=== PATIENT | male | born 1985 | race Caucasian/White ===

== ENCOUNTER 2017-05-18 12:17 | Emergency (ER) | payer BC, OTHER ==
[~2017-05-18] VITALS: Ht 182.9 cm; Wt 138.3 kg
[~2017-05-18 12:17] MED LIST: BUPR100T8 PO; LOSA100T65 PO; LSX40 PO; PANT40TA PO; PLV75 PO; POTA-74 PO; PRENTAB26 PO; TPRSR/50 PO; TPRSR50 PO; WARF-246 PO; WLLXL300 PO
[2017-05-18 12:25] VITALS: Ht 182.9 cm; Wt 138.3 kg
[2017-05-18] MEDS ORDERED: ATOR-22 PO (13:10)
[2017-05-18] MEDS ORDERED: DULO-24 PO (13:10)
[2017-05-18] MEDS ORDERED: AMLO-110 PO (13:10)
[2017-05-18] MEDS ORDERED: OPTIRAY 320 IV PRN (13:15)
[2017-05-18 13:20] LABS: ISTAT CREATININE 0.8 mg/dl (0.6-1.3); ISTAT IONIZED CALCIUM 1.13 mmol/l (1.12-1.32)
[2017-05-18 13:23] LABS: HEMATOCRIT 41.3 % (42-52); MEAN CELL VOLUME 87.9 fL (80-100); MEAN CORPUSCULAR HEMOGLOBIN 30.9 pg (25-34); MEAN CORPUSCULAR HGB CONC 35.1 g/dl (32-36); MEAN PLATELET VOLUME 10.8 fL (7.4-10.4); PLATELET COUNT 196 K/uL (130-400); WHITE BLOOD COUNT 4.66 K/uL (4.8-10.8)
[2017-05-18 13:31] LABS: INR 2.4 (0.9-1.1); PARTIAL THROMBOPLASTIN RATIO 1.4
[2017-05-18 13:41] LABS: BUN/CREATININE RATIO 14.1 (10-20); CALCIUM 9.1 mg/dl (8.5-10.1); CREATININE 0.94 mg/dl (0.60-1.40); POTASSIUM 4.2 mmol/L (3.5-5.1)
[2017-05-18 13:44] LABS: ALB/GLOB RATIO 1.2 (0.9-2)
--- NOTE | 2017-05-18 14:20 | DIAGNOSTIC IMAGING REPORT ---
Study: CT angiography of the chest HISTORY: Dissection COMPARISON: 08/10/2016 FINDINGS: Unchanged appearance compared to the prior study. 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 All vessels appear to be patent. Postoperative changes of a graft repair of the a sending thoracic aorta are unchanged. There is no pericardial effusion. Lungs are considered clear. Pulmonary vasculature enhances appropriately. IMPRESSION: 1. Unchanged dissection of the thoracic aorta compared to the prior study.. 2. Stable postoperative changes consistent with aortic valve replacement and patchy graft repair of the a sending thoracic aorta. 3. The lungs are considered clear. Electronically signed by: Clarence Hernandez M.D. 05/18/2017 2:19 PM Dictated Date/Time: 05/18/2017 2:12 PM
--- NOTE | 2017-05-18 14:26 | DIAGNOSTIC IMAGING REPORT ---
ANGIO ABD/PELVIS WITH CONTRAST CLINICAL HISTORY: Pain dissection TECHNIQUE: Transaxial acquisition with multi axial reformatted images COMPARISON STUDY: 08/10/2016 FINDINGS: Unchanged dissection of the abdominal aorta extending to the aortic bifurcation with short segment extension to the right iliac artery. There is been no change as compared to the prior study. . All branch vessels appear to opacify appropriately. Bowel pattern is nonobstructive. Liver spleen and pancreas appear unremarkable. There is been a prior prior cholecystectomy. The appendix is normal. Bladder is midline. Inguinal regions are unremarkable. IMPRESSION: 1. 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 No evidence for dissection progression. 3. Prior cholecystectomy. 4. Nonobstructive bowel pattern. The above report was generated using voice recognition software. It may contain grammatical, syntax or spelling errors. Electronically signed by: Clarence Hernandez M.D. 05/18/2017 2:24 PM Dictated Date/Time: 05/18/2017 2:20 PM
[2017-05-18 14:36] LABS: URINE APPEARANCE CLOUDY (CLEAR); URINE BILIRUBIN NEG (NEG); URINE COLOR YELLOW; URINE NITRITE POS (NEG); URINE PH 5.5 (4.5-7.5); URINE SPECIFIC GRAVITY 1.038 (1.000-1.030); UROBILINOGEN NEG (NEG)
[2017-05-18 14:41] LABS: MANUAL MICROSCOPIC REQUIRED? NO; REVIEW REQ? NO
[2017-05-18] MEDS: SULFAMETHOXAZOLE/TRIMETHOPRIM DS 800/160MG TAB PO STA (15:01)
[2017-05-18] MEDS ORDERED: SULF800T23 PO (15:03)
[2017-05-18 15:26] VITALS: BP 144/78; PULSE 67; TEMP 36.8; O2SAT 99
--- NOTE | 2017-05-18 17:03 | EMERGENCY ROOM VISIT NOTE ---
History Report prepared by Laure: Misa Langston Under the Supervision of: Dr. Lloyd Meraz M.D. First contact with patient: 12:57 Chief Complaint: OTHER COMPLAINT Stated Complaint: PAIN MID BACK,BLEEDING DURING URINATION AN INSTOOL Nursing Triage Summary: patient to ed via triage, c/o blood in stool, hematuria, back pain. Patient states "I noticed blood in my stool some weeks ago, had blood in my urine today , pain across my back. I'm on coumadin" History of Present Illness The patient is a 31 year old male who presents to the Emergency Room with complaints of rectal bleeding that began three days ago. He currently rates his discomfort as a 7/10 in severity. The patient reports a history of an aortic dissection in July 2014. He states that his pain he developed today in his mid back feels similar to when he had the aortic dissection. The patient states that he first noticed hematochezia three days ago, but denies any melena. The patient states that he saw what he thought were blood clots, but was unsure. He states that he has not had a bowel movement yet today. He states that today he noticed hematuria. The patient states that he is on Coumadin and Plavix for his mechanical valve. He states that he still has dissected areas that are stable. The patient states that he has had chest pain within the past week, describing it as a central stabbing pain, but denies any today. He notes that he is bruising easily. The patient states that he last had his INR checked Friday, stating that it was 3.4. He states that he was instructed to take reduce his intake by two pills on Friday. Source of History: patient Onset: three days ago Position: other (rectal) Symptom Intensity: 7/10 Quality: other (bleeding) Timing: other (persistent) Associated Symptoms: + chest pain, + back pain (mid back), + hematochezia, + urinary symptoms (hematuria), No melena Review of Systems See HPI for pertinent positives & negatives. A total of 10 systems reviewed and were otherwise negative. Past Medical & Surgical Medical Problems: (1) Amaurosis fugax of right eye (2) Asthma (3) DVT (deep venous thrombosis) (4) Heart failure (5) History of aortic dissection (6) HLD (hyperlipidemia) (7) hypospadias surgery Surgical Problems: (1) H/O exploratory laparotomy (2) H/O mechanical aortic valve replacement (3) History of ERCP (4) Pericardial Window (5) S/P AAA repair (6) S/P cholecystectomy (7) S/P ERCP Family History Diabetes mellitus FHx: heart disease Hypertension Social History Smoking Status: Former Smoker Alcohol Use: occasionally Marital Status: single Housing Status: lives with family Occupation Status: employed Current/Historical Medications Scheduled Amlodipine (Norvasc), 5 MG PO DAILY Atorvastatin (Lipitor), 20 MG PO DAILY Bupropion HCl (Bupropion HCl Xl), 300 MG PO QAM Clopidogrel Bisulfate (Clopidogrel), 75 MG PO DAILY Duloxetine HCl (Cymbalta), 20 MG PO DAILY Furosemide (Furosemide), 40 MG PO 2-3 X WEEK Losartan Potassium (Cozaar), 100 MG PO DAILY Metoprolol Succinate (Metoprolol Succinate ER), 50 MG PO HS Metoprolol Succinate (Metoprolol Succinate ER), 75 MG PO QAM Pantoprazole (Protonix), 40 MG PO DAILY Potassium Chloride (Potassium Chloride Er), 10 MEQ PO 2-3 X WEEK Sulfa/Trimethoprim (Bactrim Ds 800MG/160MG), 1 TAB PO BID Warfarin Sodium (Warfarin Sodium), 15 MG PO DAILY Allergies Coded Allergies: No Known Allergies (Unverified , 08/10/16) Physical Exam Vital Signs Date Time Temp Pulse Resp B/P (MAP) Pulse Ox O2 Delivery O2 Flow Rate FiO2 05/18/17 15:26 36.8 67 24 144/78 99 05/18/17 14:10 97 Room Air 05/18/17 14:00 143/62 05/18/17 13:56 99 05/18/17 13:19 63 05/18/17 13:17 65 25 99 05/18/17 13:02 146/86 05/18/17 12:25 36.8 79 20 155/76 96 Room Air Physical Exam Constitutional: Vital signs reviewed. Eyes: Pupils are equal round reactive to light. Conjunctiva are noninjected. ENT: Pharynx is clear without erythema or exudate. Mucous membranes are moist. Neck supple without meningeal signs. Respiratory: Clear to auscultation bilaterally. Breath sounds are equal bilaterally. Cardiovascular: Audible mechanical valve. Regular rate and rhythm. No rubs or gallops. GI: Soft, nondistended and nontender. Bowel sounds are present. Rectal: Guaiac negative brown stool. Musculoskeletal: Scattered bruising over lower extremities. No peripheral edema. No midline tenderness to the thoracic or lumbosacral spine. Integumentary: No cyanosis. Neurological: The patient is awake and alert. No focal deficits. Psychiatric: Normal affect. Medical Decision & Procedures ER Provider Diagnostic Interpretation: Radiology results as stated below per my review and the radiologist's interpretation: Study: CT angiography of the chest HISTORY: Dissection COMPARISON: 08/10/2016 FINDINGS: Unchanged appearance compared to the prior study. 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 All vessels appear to be patent. Postoperative changes of a graft repair of the a sending thoracic aorta are unchanged. There is no pericardial effusion. Lungs are considered clear. Pulmonary vasculature enhances appropriately. IMPRESSION: 1. Unchanged dissection of the thoracic aorta compared to the prior study.. 2. Stable postoperative changes consistent with aortic valve replacement and patchy graft repair of the a sending thoracic aorta. 3. The lungs are considered clear. Electronically signed by: Clarence Hernandez M.D. 05/18/2017 2:19 PM Dictated Date/Time: 05/18/2017 2:12 PM ANGIO ABD/PELVIS WITH CONTRAST CLINICAL HISTORY: Pain dissection TECHNIQUE: Transaxial acquisition with multi axial reformatted images COMPARISON STUDY: 08/10/2016 FINDINGS: Unchanged dissection of the abdominal aorta extending to the aortic bifurcation with short segment extension to the right iliac artery. There is been no change as compared to the prior study. . All branch vessels appear to opacify appropriately. Bowel pattern is nonobstructive. Liver spleen and pancreas appear unremarkable. There is been a prior prior cholecystectomy. The appendix is normal. Bladder is midline. Inguinal regions are unremarkable. IMPRESSION: 1. 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 No evidence for dissection progression. 3. Prior cholecystectomy. 4. Nonobstructive bowel pattern. The above report was generated using voice recognition software. It may contain grammatical, syntax or spelling errors. Electronically signed by: Clarence Hernandez M.D. 05/18/2017 2:24 PM Dictated Date/Time: 05/18/2017 2:20 PM Laboratory Results 05/18/17 12:55 05/18/17 12:55 Test 05/18/17 12:55 05/18/17 13:09 05/18/17 14:05 Red Blood Count 4.70 M/uL (4.7-6.1) Mean Corpuscular Volume 87.9 fL (80-100) Mean Corpuscular Hemoglobin 30.9 pg (25-34) Mean Corpuscular Hemoglobin Concent 35.1 g/dl (32-36) RDW Standard Deviation 40.8 fL (36.4-46.3) RDW Coefficient of Variation 12.7 % (11.5-14.5) Mean Platelet Volume 10.8 fL (7.4-10.4) Prothrombin Time 27.0 SECONDS (9.0-12.0) Prothromb Time International Ratio 2.4 (0.9-1.1) Activated Partial Thromboplast Time 36.6 SECONDS (21.0-31.0) Partial Thromboplastin Ratio 1.4 Est Creatinine Clear Calc Drug Dose 165.6 ml/min Estimated GFR () 125.6 Estimated GFR (Non- 108.4 BUN/Creatinine Ratio 14.1 (10-20) Calcium Level 9.1 mg/dl (8.5-10.1) Total Bilirubin 1.4 mg/dl (0.2-1) Aspartate Amino Transf (AST/SGOT) 50 U/L (15-37) Alanine Aminotransferase (ALT/SGPT) 68 U/L (12-78) Alkaline Phosphatase 101 U/L (45-117) Total Protein 8.4 gm/dl (6.4-8.2) Albumin 4.5 gm/dl (3.4-5.0) Globulin 3.9 gm/dl (2.5-4.0) Albumin/Globulin Ratio 1.2 (0.9-2) Bedside Hemoglobin 15.0 g/dl (14.0-18.0) Bedside Hematocrit 44 % (42-52) Bedside Sodium 140 mEq/L (135-144) Bedside Potassium 4.9 mEq/L (3.3-5.0) Bedside Chloride 104 mEq/L (101-112) Bedside Total CO2 29 mEq/l (24-31) Anion Gap 14.0 mmol/L (16-25) Bedside Blood Urea Nitrogen 16 mg/dl (7-18) Bedside Creatinine 0.8 mg/dl (0.6-1.3) Bedside Glucose (other) 86 mg/dl (70-99) Bedside Ionized Calcium (Jose) 1.13 mmol/l (1.12-1.32) Urine Color YELLOW Urine Appearance CLOUDY (CLEAR) Urine pH 5.5 (4.5-7.5) Urine Specific [place] 1.038 (1.000-1.030) Urine Protein NEG (NEG) Urine Glucose (UA) NEG (NEG) Urine Ketones NEG (NEG) Urine Occult Blood TRACE (NEG) Urine Nitrite POS (NEG) Urine Bilirubin NEG (NEG) Urine Urobilinogen NEG (NEG) Urine Leukocyte Esterase SMALL (NEG) Urine WBC (Auto) >30 /hpf (0-5) Urine RBC (Auto) 0-4 /hpf (0-4) Urine Hyaline Casts (Auto) 10-30 /lpf (0-5) Urine Epithelial Cells (Auto) 5-10 /lpf (0-5) Urine Bacteria (Auto) 4+ (NEG) Laboratory results as reviewed by me. Medications Administered Medications (Trade) Dose Ordered Sig/Kathy Route Start Time Stop Time Status Last Admin Dose Admin Trimethoprim/ Sulfamethoxazole (Septra Ds 800/ 160MG Tab) 1 tab NOW STAT PO 05/18/17 15:01 05/18/17 15:03 DC 05/18/17 15:01 1 TAB ECG Indication: chest pain Rate (beats per minute): 62 Rhythm: normal sinus Findings: LBBB, T-wave inversion (Lateral) Comparison ECG Date: 08/10/16 Change: no significant change ED Course 1259: The patient was evaluated in room C8. A complete history and physical exam was performed. 1500: I reevaluated the patient and he is resting comfortably. I discussed the test results with him and I discussed the treatment plan. He verbalized complete understanding and agreement. He is ready to go home. Ordered Trimethoprim/Sulfamethoxazole 1 tab PO. Medical Decision This is a 31-year-old male who presents with back pain, hematuria and blood in his stool. Differential diagnosis includes aortic dissection, strain, kidney stone, GI bleed, anemia. I did perform a limited focused review of portions of the patient's old chart on the electronic medical record. The patient had an angiography in August which showed a Type A aortic dissection. Medication Reconciliation: I attest that I have personally reviewed the patient' s current medication list. Blood Pressure Screening: Patient was found to have an elevated blood pressure and was referred to their primary doctor for recheck and further treatment. I did evaluate the patient as noted above. IV access was established. The patient was placed on a continuous phototypesetting equipment monitor. I did order and review the patient's blood work, including an i-STAT, as noted in the electronic medical record. His INR is therapeutic. He is not anemic. I did order a stat angiography CT of the chest, abdomen and pelvis. I did review the images myself as well as the radiology report as described above. There is no evidence of acute aortic dissection. He does have stable areas of dissection and a graft repair. I did order and personally review the patient's 12-lead EKG as described above. I did order urinalysis which does show hematuria and signs of infection. I did reassess the patient. Rectal examination shows guaiac-negative brown stool. He states that he wasn't sure if he actually had blood in the stool but he was sure he had blood in his urine. He has not had a bowel movement today. I did discuss the test results with the patient. I did recommend close follow up with his doctor. He was discharged with a prescription for Bactrim. Impression Primary Impression: Urinary tract infection with hematuria Additional Impressions: Anticoagulated on Coumadin Mid back pain Aortic dissection Scribe Attestation The scribe's documentation has been prepared under my direct and personally reviewed by me in its entirety. I confirm that the note above accurately reflects all work, treatment, procedures, and medical decision making performed by me. Departure Information Dispostion Home / Self-Care Prescriptions Sulfa/Trimethoprim (Bactrim Ds 800MG/160MG) Tab 1 TAB PO BID for 10 Days, #19 TAB Prov: Lloyd Meraz M.D. 05/18/17 Referrals Brian Guido M.D. (PCP) Forms HOME CARE DOCUMENTATION FORM, IMPORTANT VISIT INFORMATION, WORK / SCHOOL INSTRUCTIONS Patient Instructions ED UTI Cystitis Male, [facility] Additional Instructions You have been examined and treated today on an emergency basis only. This is not a substitute for, or an effort to provide, complete comprehensive medical care. It is impossible to recognize and treat all injuries or illnesses in a single emergency department visit. It is therefore important that you follow up closely with your physician. Call as soon as possible for an appointment. Return for worsening symptoms or if you develop fever, vomiting, chest pain, shortness breath, lightheadedness or any other concerning symptoms. Problem Qualifiers Primary Impression: Urinary tract infection with hematuria Urinary tract infection type: site unspecified Qualified Codes: N39.0 - Urinary tract infection, site not specified; R31.9 - Hematuria, unspecified Additional Impressions: Aortic dissection Aortic location: thoracoabdominal aorta Qualified Codes: I71.03 - Dissection of thoracoabdominal aorta
== END 2017-05-18 15:27 | disposition home or self-care (01) ==
LOC: C.EDB 12:19 → C.EDC 15:27
DX: N39.0 Urinary tract infection, site not specified (principal); R31.9 Hematuria, unspecified; I71.03 Dissection of thoracoabdominal aorta; M54.9 Dorsalgia, unspecified; Z79.01 Long term (current) use of anticoagulants; J45.909 Unspecified asthma, uncomplicated; I50.9 Heart failure, unspecified; E78.5 Hyperlipidemia, unspecified; Z83.3 Family history of diabetes mellitus; Z82.49 Family history of ischemic heart disease and other diseases of the circulatory system; Z87.891 Personal history of nicotine dependence; Z79.899 Other long term (current) drug therapy

== ENCOUNTER 2017-08-06 18:59 | Observation (INO) | payer OTHER ==
[~2017-08-06] VITALS: Ht 182.9 cm; Wt 135.2 kg
[~2017-08-06 18:59] MED LIST changes: +AMLO-110 PO; +ATOR-22 PO; -BUPR100T8 PO; +DULO-24 PO; -PRENTAB26 PO
[2017-08-06] MEDS ORDERED: OPTIRAY 320 IV PRN (19:45)
[2017-08-06 19:46] LABS: BASO % 0.4 %; BASO ABS # 0.02 K/uL (0-0.2); COMPLETE YES; EOS % 2.2 %; HEMATOCRIT 40.5 % (42-52); IG% 0.2 %; LYMPH % 35.7 %; LYMPH ABS # 1.95 K/uL (1.2-3.4); MEAN CELL VOLUME 89.2 fL (80-100); MEAN CORPUSCULAR HEMOGLOBIN 29.7 pg (25-34); MEAN CORPUSCULAR HGB CONC 33.3 g/dl (32-36); MEAN PLATELET VOLUME 10.8 fL (7.4-10.4); MONO % 11.5 %; PLATELET COUNT 212 K/uL (130-400); RED BLOOD COUNT 4.54 M/uL (4.7-6.1); WHITE BLOOD COUNT 5.46 K/uL (4.8-10.8)
[2017-08-06] MEDS ORDERED: METOPROLOL TARTRATE 1 MG/ML VIAL IV STA (19:54)
[2017-08-06] MEDS ORDERED: MoRPHine SULFATE 4 MG/ML 1 ML CARP\\VIAL IV STA (19:58)
[2017-08-06 19:59] LABS: INR 3.2 (0.9-1.1); PROTHROMBIN TIME (PATIENT) 36.5 SECONDS (9.0-12.0)
[2017-08-06 20:21] LABS: ALKALINE PHOSPHATASE 86 U/L (45-117); ALT/SGPT 62 U/L (12-78); AST/SGOT 43 U/L (15-37); BLOOD UREA NITROGEN 24 mg/dl (7-18); BUN/CREATININE RATIO 21.7 (10-20); CALCIUM 8.6 mg/dl (8.5-10.1); CARBON DIOXIDE 24 mmol/L (21-32); CHLORIDE 109 mmol/L (98-107); GLUCOSE 86 mg/dl (70-99); POTASSIUM 3.8 mmol/L (3.5-5.1); SODIUM 141 mmol/L (136-145)
--- NOTE | 2017-08-06 20:32 | DIAGNOSTIC IMAGING REPORT ---
CHEST ONE VIEW PORTABLE HISTORY: 31 years-old Male hx aortic dissection cp acute atypical chest pain. History of aortic dissection. COMPARISON: CTA 05/18/2017, chest radiograph 08/10/2016 TECHNIQUE: Portable upright AP view of the chest FINDINGS: Cardiac silhouette is mildly enlarged. Prior median sternotomy and aortic valve prosthesis. Surgical coils at the aortic arch are again seen. There is no pneumothorax, pleural effusion, focal airspace consolidation or overt pulmonary edema. No mediastinal widening identified. The bones are grossly intact. Surgical clips project over the right lung apex. IMPRESSION: No acute cardiopulmonary process. The above report was generated using voice recognition software. It may contain grammatical, syntax or spelling errors. Electronically signed by: Rashad Delgado M.D. 08/06/2017 8:31 PM Dictated Date/Time: 08/06/2017 8:29 PM
[2017-08-06] MEDS ORDERED: LABETALOL HCL IV 5 MG/ML 20ML IV STA ×2 (20:51→21:48)
--- NOTE | 2017-08-06 21:03 | DIAGNOSTIC IMAGING REPORT ---
CHEST COMBO ANGIO DISSECTION HISTORY: 31 years-old male presents with acute back pain with history of thoracic aortic dissection. COMPARISON: CTA of the chest 05/18/2017 TECHNIQUE: CT angiography of the chest was obtained both with and without the use of 116 mL Optiray 320. 3-D coronal and sagittal MIPS were obtained from the axial data set and cemented for review. All measurements were obtained according to NASCET criteria. A dose lowering technique was used consistent with the principals of MANDIE. FINDINGS: CTA: Noncontrast scan demonstrates no evidence of intramural hematoma. Heart is mildly enlarged. Prosthetic aortic valve is seen with evidence of prior median sternotomy. Postsurgical changes of the descending thoracic aorta are redemonstrated. 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 Dissection flap is again seen extending into the left subclavian artery and also near the origin of the left vertebral artery as seen on image 30 of series 7. This appears unchanged. Imaged great vessels are patent. The coronary arterial arteries also appear patent. The opacified pulmonary arterial tree is unremarkable. No focal filling defects are identified. CT CHEST: No dominant thyroid nodule. No pathologic adenopathy. No pneumothorax, pleural effusion or focal airspace consolidation. Subcentimeter calcified granuloma involve the lateral basal segment left lower lobe. Central airways are patent. Prior cholecystectomy. No acute upper male the imaged upper abdomen. Bones appear intact. IMPRESSION: 1. 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 2. Cardiomegaly with prior median sternotomy, prosthetic aortic valve and postsurgical changes of the ascending thoracic aorta. 3. No acute intrathoracic abnormality identified. The above report was generated using voice recognition software. It may contain grammatical, syntax or spelling errors. Electronically signed by: Rashad Delgado M.D. 08/06/2017 9:02 PM Dictated Date/Time: 08/06/2017 8:51 PM
--- NOTE | 2017-08-06 21:03 | EMERGENCY ROOM VISIT NOTE ---
History First contact with patient: 19:11 Chief Complaint: CHEST PAIN Stated Complaint: CHEST PAIN,FLANK PAIN,DIZZY,FAINT,TEETH TONGUE NUM Nursing Triage Summary: feeling faint since friday. teeth and tongue go numb. pain in L chest that radiates to back. called PCP and sent to ED. hx aortic disection and anuresym. History of Present Illness The patient is a 31 year old male who presents to the Emergency Room with complaints of chest pain, dizziness and sweating that has been intermittent over the last week. The patient describes the chest pain as a very sharp, stabbing sensation from his sternum to his back. He has also had some episodes of shortness of breath. The patient has a significant cardiac history. He had an aortic dissection that required multiple surgeries including repair of the aortic root and subclavian arteries. He also had a mechanical AVR done. The patient is on chronic anticoagulation. The patient does say that the pain feels different than his dissection. He has had no changes in his cardiac medications. The patient called his cardiothoracic surgeon at [facility]. They told him to come directly to the emergency department. Review of Systems 10 system review performed and negative unless noted in HPI or below Past Medical/Surgical History Medical Problems: (1) Amaurosis fugax of right eye (2) Asthma (3) DVT (deep venous thrombosis) (4) Heart failure (5) History of aortic dissection (6) HLD (hyperlipidemia) (7) hypospadias surgery Surgical Problems: (1) H/O exploratory laparotomy (2) H/O mechanical aortic valve replacement (3) History of ERCP (4) Pericardial Window (5) S/P AAA repair (6) S/P cholecystectomy (7) S/P ERCP Family History Diabetes mellitus FHx: heart disease Hypertension Social History Smoking Status: Never Smoker Alcohol Use: occasionally Marital Status: single Housing Status: lives with family Occupation Status: employed Current/Historical Medications Scheduled Amlodipine (Norvasc), 5 MG PO DAILY Atorvastatin (Lipitor), 20 MG PO DAILY Bupropion (Wellbutrin Sr), 1 TAB PO DAILY Bupropion HCl (Bupropion HCl Xl), 300 MG PO QAM Clopidogrel Bisulfate (Clopidogrel), 75 MG PO DAILY Furosemide (Furosemide), 40 MG PO PRN Losartan Potassium (Cozaar), 100 MG PO DAILY Metoprolol Succinate (Metoprolol Succinate ER), 50 MG PO HS Metoprolol Succinate (Metoprolol Succinate ER), 75 MG PO QAM Pantoprazole (Protonix), 40 MG PO DAILY Potassium Chloride (Potassium Chloride Er), 10 MEQ PO PRN Topiramate (Topiramate), 1 TAB PO BID Warfarin Sodium (Warfarin Sodium), 15 MG PO DAILY Physical Exam Vital Signs Date Time Temp Pulse Resp B/P (MAP) Pulse Ox O2 Delivery O2 Flow Rate FiO2 08/06/17 23:31 76 14 116/58 98 Room Air 08/06/17 23:25 71 08/06/17 23:01 76 19 137/74 98 Room Air 08/06/17 22:38 78 18 134/82 98 Room Air 08/06/17 22:11 75 22 138/67 97 08/06/17 22:06 78 15 96 08/06/17 22:01 75 17 130/59 96 08/06/17 21:56 75 18 96 08/06/17 21:51 75 20 129/62 96 08/06/17 21:46 76 20 97 08/06/17 21:41 76 16 169/80 98 08/06/17 21:36 79 19 97 08/06/17 21:31 78 13 142/90 96 08/06/17 21:26 72 13 99 08/06/17 21:21 74 23 155/72 98 08/06/17 21:16 74 19 100 08/06/17 21:11 148/72 08/06/17 21:09 68 13 98 08/06/17 21:04 70 17 99 08/06/17 21:01 136/82 08/06/17 20:59 70 26 98 08/06/17 20:54 68 14 99 08/06/17 20:51 140/63 08/06/17 20:49 71 14 98 08/06/17 20:46 163/71 08/06/17 20:31 157/86 08/06/17 20:29 71 22 98 08/06/17 20:26 154/74 08/06/17 20:24 69 16 97 08/06/17 20:21 125/61 08/06/17 20:19 161/66 08/06/17 20:19 71 15 98 08/06/17 20:16 161/66 08/06/17 20:14 70 16 97 08/06/17 20:12 98 Room Air 08/06/17 20:09 65 12 182/79 98 08/06/17 20:08 176/71 08/06/17 20:04 70 166/86 08/06/17 20:04 70 17 98 08/06/17 20:01 166/86 08/06/17 19:59 70 16 99 08/06/17 19:54 74 18 99 08/06/17 19:49 70 20 98 08/06/17 19:44 72 16 99 08/06/17 19:44 81 08/06/17 19:43 157/77 08/06/17 19:39 73 20 98 08/06/17 19:37 129/88 08/06/17 19:08 37.2 76 18 188/82 99 Room Air Physical Exam GENERAL: 31-year-old male, anxious in appearance, nondiaphoretic SKIN: Mild ecchymosis to the left ankle HEAD: Normocephalic atraumatic. EYES: Pupils equal round and reactive to light and accommodation. Conjunctivae without injection, sclerae without icterus. Extraocular movements intact. MOUTH: Mucous membranes slightly dry NECK: Left carotid bruit. No JVD. HEART: Regular rate and rhythm systolic murmur noted. LUNGS: Clear to auscultation bilaterally without wheezes, rales or rhonchi. No accessory muscle use. ABDOMEN: Positive bowel sounds x 4.Soft, nontender, without organomegaly. MUSCULOSKELETAL: No muscle atrophy, erythema, or edema noted. DP pulses are equal bilaterally. Radial pulses are equal bilaterally. Strength 5/5 throughout. NEURO: Patient was alert and oriented to person place and time. Normal sensation to touch. No focal neurological deficits. Medical Decision & Procedures ER Provider Diagnostic Interpretation: CXR: IMPRESSION: No acute cardiopulmonary process. CT for dissection IMPRESSION: 1. Stable exam with unchanged appearance of the [place] type A dissection involving the ascending and descending thoracic aorta and imaged upper abdominal aorta extending into the origin of the left subclavian artery. 2. Cardiomegaly with prior median sternotomy, prosthetic aortic valve and postsurgical changes of the ascending thoracic aorta. 3. No acute intrathoracic abnormality identified. CT chest, abdomen and pelvis IMPRESSION: 1. Stable exam with unchanged appearance of the [place] type A dissection involving the ascending and descending thoracic aorta and imaged upper abdominal aorta extending into the origin of the left subclavian artery. 2. Cardiomegaly with prior median sternotomy, prosthetic aortic valve and postsurgical changes of the ascending thoracic aorta. 3. No acute intrathoracic abnormality identified. IMPRESSION: 1. 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 2. 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 3. No bowel obstruction or pneumoperitoneum. 4. Prior cholecystectomy with unchanged mild intrahepatic biliary duct dilation of the right hepatic lobe. Laboratory Results 08/06/17 18:25 Red Blood Count 4.54, Mean Corpuscular Volume 89.2, Mean Corpuscular Hemoglobin 29.7, Mean Corpuscular Hemoglobin Concent 33.3, Mean Platelet Volume 10.8, Neutrophils (%) (Auto) 50.0, Lymphocytes (%) (Auto) 35.7, Monocytes (%) (Auto) 11.5, Eosinophils (%) (Auto) 2.2, Basophils (%) (Auto) 0.4, Neutrophils # (Auto ) 2.73, Lymphocytes # (Auto) 1.95, Monocytes # (Auto) 0.63, Eosinophils # (Auto ) 0.12, Basophils # (Auto) 0.02 08/06/17 18:25 Test 08/06/17 18:25 08/06/17 19:36 08/06/17 22:23 White Blood Count 5.46 K/uL (4.8-10.8) Red Blood Count 4.54 M/uL (4.7-6.1) Hemoglobin 13.5 g/dL (14.0-18.0) Hematocrit 40.5 % (42-52) Mean Corpuscular Volume 89.2 fL (80-100) Mean Corpuscular Hemoglobin 29.7 pg (25-34) Mean Corpuscular Hemoglobin Concent 33.3 g/dl (32-36) Platelet Count 212 K/uL (130-400) Mean Platelet Volume 10.8 fL (7.4-10.4) Neutrophils (%) (Auto) 50.0 % Lymphocytes (%) (Auto) 35.7 % Monocytes (%) (Auto) 11.5 % Eosinophils (%) (Auto) 2.2 % Basophils (%) (Auto) 0.4 % Neutrophils # (Auto) 2.73 K/uL (1.4-6.5) Lymphocytes # (Auto) 1.95 K/uL (1.2-3.4) Monocytes # (Auto) 0.63 K/uL (0.11-0.59) Eosinophils # (Auto) 0.12 K/uL (0-0.5) Basophils # (Auto) 0.02 K/uL (0-0.2) RDW Standard Deviation 44.2 fL (36.4-46.3) RDW Coefficient of Variation 13.7 % (11.5-14.5) Immature Granulocyte % (Auto) 0.2 % Immature Granulocyte # (Auto) 0.01 K/uL (0.00-0.02) Prothrombin Time 36.5 SECONDS (9.0-12.0) Prothromb Time International Ratio 3.2 (0.9-1.1) Anion Gap 10.0 mmol/L (3-11) Est Creatinine Clear Calc Drug Dose 141.8 ml/min Estimated GFR () 103.9 Estimated GFR (Non- 89.6 BUN/Creatinine Ratio 21.7 (10-20) Calcium Level 8.6 mg/dl (8.5-10.1) Total Bilirubin 1.3 mg/dl (0.2-1) Aspartate Amino Transf (AST/SGOT) 43 U/L (15-37) Alanine Aminotransferase (ALT/SGPT) 62 U/L (12-78) Alkaline Phosphatase 86 U/L (45-117) Total Creatine Kinase 239 U/L (39-308) Creatine Kinase MB < 0.5 ng/ml (0.5-3.6) Total Protein 7.8 gm/dl (6.4-8.2) Albumin 4.1 gm/dl (3.4-5.0) Globulin 3.7 gm/dl (2.5-4.0) Albumin/Globulin Ratio 1.0 (0.9-2) Lipase 115 U/L (73-393) Creatine Kinase MB Ratio (0-3.0) Bedside Troponin I < 0.030 ng/ml (0-0.045) Medications Administered Medications (Trade) Dose Ordered Sig/Kathy Route Start Time Stop Time Status Last Admin Dose Admin Metoprolol Tartrate (Lopressor Iv) 5 mg NOW STAT IV 10/4/17 19:54 08/06/17 19:55 DC 08/06/17 20:04 5 MG Morphine Sulfate (MoRPHine SULFATE INJ) 4 mg ONE STAT IV 08/06/17 19:58 08/06/17 19:59 DC 08/06/17 20:05 4 MG Labetalol HCl (Normodyne IV) 10 mg NOW STAT IV 08/06/17 20:51 08/06/17 20:54 DC 08/06/17 21:27 10 MG ECG Indication: chest pain Rate (beats per minute): 75 Rhythm: normal sinus Findings: LBBB Change: no significant change ED Course Patient was seen and examined Vital signs including blood pressure were reviewed medications list was verified with patient Labs were obtained, and a saline lock was established An EKG was performed, and the patient was put on a monitor Imaging studies were ordered and a chest x-ray was performed The patient was given 1 dose of Lopressor 5 mg IV and morphine 4 mg IV. There was mild improvement in his blood pressure. A CT of the abdomen, chest and pelvis were performed. No acute/new dissections were noted. Upon arrival back into the emergency department, the patient said that he had pain during the CT scan. He was given 1 dose of labetalol 10 mg IV for an elevated blood pressure. He did require a second dose. This seemed to help his pain. The case was discussed with case management I contacted the [facility] service, who agreed to admit the patient for further workup and treatment Medical Decision Differential diagnosis: Aortic dissection, pulmonary embolus, acute coronary syndrome, cardiac arrhythmia, pneumothorax This patient is a 31-year-old male that presents to emergency department with a main complaint of dizziness and midsternal chest pain radiating to his back. On exam, he was anxious in appearance. He was significantly hypertensive. Given his cardiac history, I was concerned for a new aortic dissection. Imaging was negative for any new dissection. It was unchanged from previous study. The patient required multiple antihypertensives to control his blood pressure in the emergency department. When his blood pressure would improve, his chest pain would dissipate. I believe this is likely a hypertensive urgency. His initial troponin is negative. Renal function in tact. His EKG shows an old left bundle branch block. A second EKG was performed in addition to a second point of care troponin. Both were unchanged. I am concerned about the patient being discharged with an elevated blood pressure and still having transient symptoms especially given his history of dissection.. The case was discussed with the [facility] service, who agreed to admit the patient for further treatment. This chart was completed in part utilizing [employer] Speech Voice Recognition software. Attempts were made to minimize the grammatical errors, random word insertions, pronoun errors and incomplete sentences. Any formal questions or concerns about the content, text or information contained within the body of this dictation should be directly addressed to the provider for clarification. Blood Pressure Screening Patient's blood pressure: Elevated blood pressure Impression Primary Impression: Hypertensive urgency Departure Information Referrals Brian Guido M.D. (PCP) Patient Instructions My [facility] [address]
--- NOTE | 2017-08-06 21:15 | DIAGNOSTIC IMAGING REPORT ---
ABD/PELVIS IV CONTRAST ONLY HISTORY: 31 years-old Male ? dissection acute abdominal and back pain with history of abdominal aortic dissection. COMPARISON: CTA of the chest of same day TECHNIQUE: Multiple axial CT images of the abdomen and pelvis were obtained following the intravenous administration of 116 mL Optiray 320. A dose lowering technique was used consistent with the principals of MANDIE. FINDINGS: Lung bases are clear. Prior median sternotomy partially imaged. No pneumoperitoneum. Prior cholecystectomy. There is mild intrahepatic biliary ductal dilation of the right hepatic lobe which appears unchanged and may be secondary to postcholecystectomy state. The spleen, pancreas and adrenal glands are within normal limits. Kidneys, ureters and urinary bladder are unremarkable. Dissection of the abdominal aorta is redemonstrated with dissection flap extending into the right common iliac artery. This appears unchanged from comparison studies. He mesenteric, renal and iliac vasculature appears patent. No abdominal aortic aneurysm or rupture. There is no bulky retroperitoneal adenopathy identified. There is no bowel obstruction. 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 The appendix and terminal ileum appear normal. Soft tissues are otherwise within normal limits. The bones appear intact. Moderate intervertebral disc space narrowing at L5-S1. IMPRESSION: 1. Unchanged appearance of the L[place] type A dissection which extends into the abdominal aorta and right common iliac artery. 2. 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 3. No bowel obstruction or pneumoperitoneum. 4. Prior cholecystectomy with unchanged mild intrahepatic biliary duct dilation of the right hepatic lobe. The above report was generated using voice recognition software. It may contain grammatical, syntax or spelling errors. Electronically signed by: Rashad Delgado M.D. 08/06/2017 9:14 PM Dictated Date/Time: 08/06/2017 9:05 PM
[2017-08-06] MEDS ORDERED: WARF5TAB90 PO (21:23)
[2017-08-06] MEDS ORDERED: BUPR100T8 PO (21:23)
[2017-08-06] MEDS ORDERED: TPM25 PO (21:23)
[2017-08-06] MEDS ORDERED: CEPHALEXIN MONOHYDRATE 250 MG CAP PO ONE (22:00)
[2017-08-06] MEDS ORDERED: IV FLUIDS COMPLETED PRN (23:45)
[2017-08-06] MEDS ORDERED: ONDANSETRON INJ 2 MG/ML 2 ML VIAL IV PRN (23:45)
[2017-08-06] MEDS ORDERED: POLYETHYLENE (MIRALAX) 17 GM PACK PO PRN (23:45)
[2017-08-07] VITALS (12 sets, daily range): BP systolic 105–137; BP diastolic 63–80; PULSE 58–72; TEMP 36.3–36.7; O2SAT 94–99; Ht 182.9 cm; Wt 135.2 kg
[2017-08-07 01:30] LABS: CKMB/CK RATIO 0.3 (0-3.0)
--- NOTE | 2017-08-07 01:51 | History and Physical ---
History & Physical Date & Time of Service: Aug 07, 2017 at 01:34 Chief Complaint: Chest Pain Primary Care Physician: Brian Guido M.D. History of Present Illness Source: patient, clinic records, hospital records 31 yo M with complicated h/o related to Type I dissection with repair and s/p AoV ([facility]) 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 He states that he has had multiple medication changes recently in an effort to find a treatment for controlling his chronic severe lower back pain without narcotics. He reports being on Buproprion since his surgery in 2013, taking 300mg in the morning and 100mg in the evening. He was started on Cymbalta and was titrated up with no effect. He was then placed on Topamax and did well on the once daily dosing, but went to the twice daily dosing shortly before experiencing his symptoms. Simultaneously, he stopped the cymbalta and was put back on the additional 100mg dose at night that he was previously taking. He admits that while this was changing, he was also vacationing in the [place] and was drinking just prior to the change. He denies any alcohol use for the rest of his vacation week and lightheadedness symptoms persisted. He cannot identify a provoking or palliating factor for symptom onset including positional change or exertion. Symptoms are coming on at rest, etc. He states that his lightheadedness and chest discomfort last anywhere to a few seconds to a few minutes and are intermittent. Symptoms are not associated with SOB, diaphoresis. He does admit to some nausea this morning but no vomiting, GI bleeding, diarrhea. He is working on weight loss and reports recently losing 40 lbs. He was last seen in the Cardiology office in March 2017 and was instructed to continue his current therapy from a cardiac standpoint. It has been one year since his last echo which revealed EF 45%, slightly elevated velocity across his prosthetic aortic valve, and septal dyskinesis consistent with his post-operative state and known LBBB. He is a nonsmoker. ROS also reveals some numbness to his tongue and teeth and describes feeling as though he is in a mental fog. Denies sick contacts, denies swimming in the ocean. Denies any drug use. 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 (2) Asthma Status: Chronic (3) DVT (deep venous thrombosis) Status: Chronic (4) Heart failure Status: Chronic (5) History of aortic dissection Status: Chronic (6) HLD (hyperlipidemia) Status: Chronic (7) hypospadias surgery Status: Chronic Surgical Problems: (1) H/O exploratory laparotomy Status: Chronic (2) H/O mechanical aortic valve replacement Status: Chronic (3) History of ERCP Status: Chronic (4) Pericardial Window Status: Resolved (5) S/P AAA repair Permanent Comment: 07/15/2014 REPAIR AORTA WITH CARDIOPULMONARY BYPASS performed by Timbo Heredia MD at [facility] Persistent aortic dissection with resultant repeat surgery on 05/27/2015 for arch repair. 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) Immunizations History of Influenza Vaccine: No History of Tetanus Vaccine?: Yes Tetanus Immunization Date: Nov 06, 2015 History of Pneumococcal: No History of Hepatitis B Vaccine: No Multi-Drug Resistant Organisms History of MDRO: No Allergies Coded Allergies: No Known Allergies (Unverified , 08/06/17) Home Medications Scheduled Amlodipine (Norvasc), 5 MG PO DAILY Atorvastatin (Lipitor), 20 MG PO DAILY Bupropion (Wellbutrin Sr), 1 TAB PO HS Bupropion HCl (Bupropion HCl Xl), 300 MG PO QAM Clopidogrel Bisulfate (Clopidogrel), 75 MG PO DAILY Furosemide (Furosemide), 40 MG PO PRN Losartan Potassium (Cozaar), 100 MG PO DAILY Metoprolol Succinate (Metoprolol Succinate ER), 50 MG PO HS Metoprolol Succinate (Metoprolol Succinate ER), 75 MG PO QAM Pantoprazole (Protonix), 40 MG PO DAILY Potassium Chloride (Potassium Chloride Er), 10 MEQ PO PRN Topiramate (Topiramate), 1 TAB PO BID Warfarin Sodium (Warfarin Sodium), 15 MG PO DAILY Review of Systems At least ten systems were reviewed and negative except as indicated in HPI. Physical Exam Vital Signs Date Time Temp Pulse Resp B/P (MAP) Pulse Ox O2 Delivery O2 Flow Rate FiO2 08/07/17 00:05 72 17 111/53 97 08/07/17 00:01 72 17 111/53 97 Room Air 08/06/17 23:31 76 14 116/58 98 Room Air 08/06/17 23:25 71 08/06/17 23:01 76 19 137/74 98 Room Air 08/06/17 22:38 78 18 134/82 98 Room Air 08/06/17 22:11 75 22 138/67 97 08/06/17 22:06 78 15 96 08/06/17 22:01 75 17 130/59 96 08/06/17 21:56 75 18 96 08/06/17 21:51 75 20 129/62 96 08/06/17 21:46 76 20 97 08/06/17 21:41 76 16 169/80 98 08/06/17 21:36 79 19 97 08/06/17 21:31 78 13 142/90 96 08/06/17 21:26 72 13 99 08/06/17 21:21 74 23 155/72 98 08/06/17 21:16 74 19 100 08/06/17 21:11 148/72 08/06/17 21:09 68 13 98 08/06/17 21:04 70 17 99 08/06/17 21:01 136/82 08/06/17 20:59 70 26 98 08/06/17 20:54 68 14 99 08/06/17 20:51 140/63 08/06/17 20:49 71 14 98 08/06/17 20:46 163/71 08/06/17 20:31 157/86 08/06/17 20:29 71 22 98 08/06/17 20:26 154/74 08/06/17 20:24 69 16 97 08/06/17 20:21 125/61 08/06/17 20:19 161/66 08/06/17 20:19 71 15 98 08/06/17 20:16 161/66 08/06/17 20:14 70 16 97 08/06/17 20:12 98 Room Air 08/06/17 20:09 65 12 182/79 98 08/06/17 20:08 176/71 08/06/17 20:04 70 166/86 08/06/17 20:04 70 17 98 08/06/17 20:01 166/86 08/06/17 19:59 70 16 99 08/06/17 19:54 74 18 99 08/06/17 19:49 70 20 98 08/06/17 19:44 72 16 99 08/06/17 19:44 81 08/06/17 19:43 157/77 08/06/17 19:39 73 20 98 08/06/17 19:37 129/88 08/06/17 19:08 37.2 76 18 188/82 99 Room Air General Appearance: no apparent distress, + obese Head: normocephalic, atraumatic Eyes: normal inspection, PERRL, sclerae normal ENT: normal ENT inspection, hearing grossly normal, pharynx normal Neck: no JVD, trachea midline Respiratory/Chest: chest non-tender, lungs clear, normal breath sounds, no respiratory distress, no accessory muscle use Cardiovascular: regular rate, rhythm, no edema, no gallop, no JVD, no murmur, normal peripheral pulses, + pertinent finding (mechanical valve heard) Abdomen/GI: normal bowel sounds, non tender, soft Back: + pertinent finding (several circular bruises on lower back area. ) Extremities/Musculoskelatal: normal inspection, + pertinent finding (some ecchymoses around the L ankle from a known trauma last week-bruises appear to be healing) Neurologic/Psych: compliance specialist II-XII nml as tested, no motor/sensory deficits, alert, normal mood/affect, oriented x 3 Skin: normal color, warm/dry, + pertinent finding (except as described above. ) Diagnostics Laboratory Results 08/06/17 18:25 Red Blood Count 4.54, Mean Corpuscular Volume 89.2, Mean Corpuscular Hemoglobin 29.7, Mean Corpuscular Hemoglobin Concent 33.3, Mean Platelet Volume 10.8, Neutrophils (%) (Auto) 50.0, Lymphocytes (%) (Auto) 35.7, Monocytes (%) (Auto) 11.5, Eosinophils (%) (Auto) 2.2, Basophils (%) (Auto) 0.4, Neutrophils # (Auto ) 2.73, Lymphocytes # (Auto) 1.95, Monocytes # (Auto) 0.63, Eosinophils # (Auto ) 0.12, Basophils # (Auto) 0.02 08/06/17 18:25 Test 08/06/17 18:25 08/06/17 22:23 08/07/17 00:55 White Blood Count 5.46 K/uL (4.8-10.8) Red Blood Count 4.54 M/uL (4.7-6.1) Hemoglobin 13.5 g/dL (14.0-18.0) Hematocrit 40.5 % (42-52) Mean Corpuscular Volume 89.2 fL (80-100) Mean Corpuscular Hemoglobin 29.7 pg (25-34) Mean Corpuscular Hemoglobin Concent 33.3 g/dl (32-36) Platelet Count 212 K/uL (130-400) Mean Platelet Volume 10.8 fL (7.4-10.4) Neutrophils (%) (Auto) 50.0 % Lymphocytes (%) (Auto) 35.7 % Monocytes (%) (Auto) 11.5 % Eosinophils (%) (Auto) 2.2 % Basophils (%) (Auto) 0.4 % Neutrophils # (Auto) 2.73 K/uL (1.4-6.5) Lymphocytes # (Auto) 1.95 K/uL (1.2-3.4) Monocytes # (Auto) 0.63 K/uL (0.11-0.59) Eosinophils # (Auto) 0.12 K/uL (0-0.5) Basophils # (Auto) 0.02 K/uL (0-0.2) RDW Standard Deviation 44.2 fL (36.4-46.3) RDW Coefficient of Variation 13.7 % (11.5-14.5) Immature Granulocyte % (Auto) 0.2 % Immature Granulocyte # (Auto) 0.01 K/uL (0.00-0.02) Prothrombin Time 36.5 SECONDS (9.0-12.0) Prothromb Time International Ratio 3.2 (0.9-1.1) Anion Gap 10.0 mmol/L (3-11) Est Creatinine Clear Calc Drug Dose 141.8 ml/min Estimated GFR () 103.9 Estimated GFR (Non- 89.6 BUN/Creatinine Ratio 21.7 (10-20) Calcium Level 8.6 mg/dl (8.5-10.1) Total Bilirubin 1.3 mg/dl (0.2-1) Aspartate Amino Transf (AST/SGOT) 43 U/L (15-37) Alanine Aminotransferase (ALT/SGPT) 62 U/L (12-78) Alkaline Phosphatase 86 U/L (45-117) Total Protein 7.8 gm/dl (6.4-8.2) Albumin 4.1 gm/dl (3.4-5.0) Globulin 3.7 gm/dl (2.5-4.0) Albumin/Globulin Ratio 1.0 (0.9-2) Lipase 115 U/L (73-393) Bedside Troponin I < 0.030 ng/ml (0-0.045) Total Creatine Kinase 206 U/L (39-308) Creatine Kinase MB 0.7 ng/ml (0.5-3.6) Creatine Kinase MB Ratio 0.3 (0-3.0) Troponin I < 0.015 ng/ml (0-0.045) Results Past 24 Hours Test 08/06/17 18:25 08/06/17 19:36 08/06/17 19:45 08/06/17 22:23 Range/Units White Blood Count 5.46 4.8-10.8 K/uL Red Blood Count 4.54 4.7-6.1 M/uL Hemoglobin 13.5 14.0-18.0 g/dL Hematocrit 40.5 42-52 % Mean Corpuscular Volume 89.2 80-100 fL Mean Corpuscular Hemoglobin 29.7 25-34 pg Mean Corpuscular Hemoglobin Concent 33.3 32-36 g/dl Platelet Count 212 130-400 K/uL Mean Platelet Volume 10.8 7.4-10.4 fL Neutrophils (%) (Auto) 50.0 % Lymphocytes (%) (Auto) 35.7 % Monocytes (%) (Auto) 11.5 % Eosinophils (%) (Auto) 2.2 % Basophils (%) (Auto) 0.4 % Neutrophils # (Auto) 2.73 1.4-6.5 K/uL Lymphocytes # (Auto) 1.95 1.2-3.4 K/uL Monocytes # (Auto) 0.63 0.11-0.59 K/uL Eosinophils # (Auto) 0.12 0-0.5 K/uL Basophils # (Auto) 0.02 0-0.2 K/uL RDW Standard Deviation 44.2 36.4-46.3 fL RDW Coefficient of Variation 13.7 11.5-14.5 % Immature Granulocyte % (Auto) 0.2 % Immature Granulocyte # (Auto) 0.01 0.00-0.02 K/uL Prothrombin Time 36.5 9.0-12.0 SECONDS Prothromb Time International Ratio 3.2 0.9-1.1 Sodium Level 141 136-145 mmol/L Potassium Level 3.8 3.5-5.1 mmol/L Chloride Level 109 98-107 mmol/L Carbon Dioxide Level 24 21-32 mmol/L Anion Gap 10.0 3-11 mmol/L Blood Urea Nitrogen 24 7-18 mg/dl Creatinine 1.10 0.60-1.40 mg/dl Est Creatinine Clear Calc Drug Dose 141.8 ml/min Estimated GFR () 103.9 Estimated GFR (Non- 89.6 BUN/Creatinine Ratio 21.7 10-20 Random Glucose 86 70-99 mg/dl Calcium Level 8.6 8.5-10.1 mg/dl Total Bilirubin 1.3 0.2-1 mg/dl Aspartate Amino Transf (AST/SGOT) 43 15-37 U/L Alanine Aminotransferase (ALT/SGPT) 62 12-78 U/L Alkaline Phosphatase 86 45-117 U/L Total Creatine Kinase 239 39-308 U/L Creatine Kinase MB < 0.5 0.5-3.6 ng/ml Total Protein 7.8 6.4-8.2 gm/dl Albumin 4.1 3.4-5.0 gm/dl Globulin 3.7 2.5-4.0 gm/dl Albumin/Globulin Ratio 1.0 0.9-2 Lipase 115 73-393 U/L Creatine Kinase MB Ratio 0-3.0 Bedside Troponin I < 0.030 < 0.030 0-0.045 ng/ml Test 08/07/17 00:55 Range/Units Total Creatine Kinase 206 39-308 U/L Creatine Kinase MB 0.7 0.5-3.6 ng/ml Creatine Kinase MB Ratio 0.3 0-3.0 Troponin I < 0.015 0-0.045 ng/ml Diagnostic Radiology ABD/PELVIS IV CONTRAST ONLY HISTORY: 31 years-old Male ? dissection acute abdominal and back pain with history of abdominal aortic dissection. COMPARISON: CTA of the chest of same day TECHNIQUE: Multiple axial CT images of the abdomen and pelvis were obtained following the intravenous administration of 116 mL Optiray 320. A dose lowering technique was used consistent with the principals of MANDIE. FINDINGS: Lung bases are clear. Prior median sternotomy partially imaged. No pneumoperitoneum. Prior cholecystectomy. There is mild intrahepatic biliary ductal dilation of the right hepatic lobe which appears unchanged and may be secondary to postcholecystectomy state. The spleen, pancreas and adrenal glands are within normal limits. Kidneys, ureters and urinary bladder are unremarkable. Dissection of the abdominal aorta is redemonstrated with dissection flap extending into the right common iliac artery. This appears unchanged from comparison studies. He mesenteric, renal and iliac vasculature appears patent. No abdominal aortic aneurysm or rupture. There is no bulky retroperitoneal adenopathy identified. There is no bowel obstruction. 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 The appendix and terminal ileum appear normal. Soft tissues are otherwise within normal limits. The bones appear intact. Moderate intervertebral disc space narrowing at L5-S1. IMPRESSION: 1. 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 2. 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 3. No bowel obstruction or pneumoperitoneum. 4. Prior cholecystectomy with unchanged mild intrahepatic biliary duct dilation of the right hepatic lobe. CHEST COMBO ANGIO DISSECTION HISTORY: 31 years-old male presents with acute back pain with history of thoracic aortic dissection. COMPARISON: CTA of the chest 05/18/2017 TECHNIQUE: CT angiography of the chest was obtained both with and without the use of 116 mL Optiray 320. 3-D coronal and sagittal MIPS were obtained from the axial data set and cemented for review. All measurements were obtained according to NASCET criteria. A dose lowering technique was used consistent with the principals of MANDIE. FINDINGS: CTA: Noncontrast scan demonstrates no evidence of intramural hematoma. Heart is mildly enlarged. Prosthetic aortic valve is seen with evidence of prior median sternotomy. Postsurgical changes of the descending thoracic aorta are redemonstrated. Unchanged appearance of a [place] type A dissection which involves the ascending and descending portions of the thoracic aorta extending into the imaged upper abdominal aorta. Dissection flap is again seen extending into the left subclavian artery and also near the origin of the left vertebral artery as seen on image 30 of series 7. This appears unchanged. Imaged great vessels are patent. The coronary arterial arteries also appear patent. The opacified pulmonary arterial tree is unremarkable. No focal filling defects are identified. CT CHEST: No dominant thyroid nodule. No pathologic adenopathy. No pneumothorax, pleural effusion or focal airspace consolidation. Subcentimeter calcified granuloma involve the lateral basal segment left lower lobe. Central airways are patent. Prior cholecystectomy. No acute upper male the imaged upper abdomen. Bones appear intact. IMPRESSION: 1. Stable exam with unchanged appearance of the [place] type A dissection involving the ascending and descending thoracic aorta and imaged upper abdominal aorta extending into the origin of the left subclavian artery. 2. Cardiomegaly with prior median sternotomy, prosthetic aortic valve and postsurgical changes of the ascending thoracic aorta. 3. No acute intrathoracic abnormality identified. CHEST ONE VIEW PORTABLE HISTORY: 31 years-old Male hx aortic dissection cp acute atypical chest pain. History of aortic dissection. COMPARISON: CTA 05/18/2017, chest radiograph 08/10/2016 TECHNIQUE: Portable upright AP view of the chest FINDINGS: Cardiac silhouette is mildly enlarged. Prior median sternotomy and aortic valve prosthesis. Surgical coils at the aortic arch are again seen. There is no pneumothorax, pleural effusion, focal airspace consolidation or overt pulmonary edema. No mediastinal widening identified. The bones are grossly intact. Surgical clips project over the right lung apex. IMPRESSION: No acute cardiopulmonary process. No change from prior EKG Impression Assessment and Plan 31 yo M with vascular repair history who is on coumadin for a mechanical aortic valve presents today with lightheadedness and chest pain 1. Atypical chest pain-etiologies likely related to medication interaction vs side effects. EKG reveals chronic LBBB, pain myah symptoms are fleeting and are not associated with exertion or other provoking factors, and the timing of symptoms is very closely tied to the medication changes last week in addition to the vacation and drinking. Furthermore, he has negative cardiac enzymes and CTA dissection and A/P with IV contrast reveal stable dissections/grafting. It has been one year since his last TTE so will get this in the morning and trend serial cardiac enzymes/monitor symptoms overnight. He did present with an elevated SBP in the 180s which is odd for him per his report. This quickly responded to some IV beta laine. Uncertain how much this was playing a role. Cardiology was consulted to evaluate him in the morning. 2. HTN-appeared initially uncontrolled, however, he responded well to Labetalol then Lopressor IV and also reported feeling better after those two medications were given. For now, cont home regimen of Losartan 100mg PO daily and Norvasc 5mg PO daily. 3. Lightheadedness/mental fog-likely related to recent addition of Topamax which is being held. He remains on the Buproprion at the original dosing and has stopped the Cymbalta last week. 4. Lower back pain-chronic, currently searching for nonnarcotic options for management. Some of these were discussed. Lidocaine patch ordered PRN. Working on weight loss and was praised for this. 5. s/p mechanical AoV replacement for congenital bicuspid valve-on coumadin. INR in goal range 2.5-3.5. cont current dosing and daily INR 6. s/p dissection with repair and grafting of aortic arch-appears stable on imaging. Suspect pain above is more related to medication side effect than worsening clinical situation related to these repairs. TTE as above. Apprec Cards thoughts. DVT proph-coumadin/SCDs Full Code Dispo-to telemetry for observation overnight. Likely DC to home in am. Sara Ashley DO [facility] Hospitalist. Level of Care Telemetry Resuscitation Status FULL RESUSCITATION VTE Prophylaxis VTE Risk Assessment Done? Y/N: Yes Risk Level: Moderate Given or contraindicated: Warfarin (Coumadin), SCD's
[2017-08-07] MEDS ORDERED: LIDODERM (LIDOCAINE) PATCH 5% TD PRN (02:15)
[2017-08-07] MEDS: WARFARIN SOD 5 MG TAB PO SCH ×2 (02:17→15:57)
[2017-08-07] MEDS ORDERED: INFLUENZA VIRUS QUAD VACCINE 0.5 ML SYR IM. ONE (03:00)
[2017-08-07] MEDS ORDERED: INFLUENZA ADMINISTRATION CHARGE ONE (03:00)
[2017-08-07 07:24] LABS: INR 2.8 (0.9-1.1); PROTHROMBIN TIME (PATIENT) 30.8 SECONDS (9.0-12.0)
[2017-08-07] MEDS: AMLODIPINE BESYLATE 5 MG TAB PO SCH (08:47)
[2017-08-07] MEDS: PANTOprazole SOD 40 MG TAB PO SCH (08:47)
[2017-08-07] MEDS: BuPROPion XL 300 MG TABCR PO SCH (08:47)
[2017-08-07] MEDS: LOSARTAN POTASSIUM 50 MG TAB PO SCH (08:48)
[2017-08-07] MEDS: METOPROLOL SUCC 50MG EXT REL TAB PO SCH (08:48)
[2017-08-07] MEDS: ATORVASTATIN 20 MG TAB PO SCH (08:48)
[2017-08-07] MEDS: CLOPIDOGREL BISULFATE 75 MG TAB PO SCH (08:48)
[2017-08-07] MEDS: ACETAMINOPHEN 325 MG TAB PO PRN ×2 (11:36→15:58)
--- NOTE | 2017-08-07 14:34 | DIAGNOSTIC IMAGING REPORT ---
ULTRASOUND OF THE CAROTID ARTERIES CLINICAL HISTORY: Presyncope. History of aortic dissection with surgical repair. COMPARISON STUDY: CT of the chest dated 08/06/2017. TECHNIQUE: Real-time, grayscale, and color Doppler sonography of the carotid arteries is performed. Images are reviewed in the transverse and longitudinal planes. FINDINGS: Blood pressures were not assessed due to postoperative change. Postoperative changes partially visualized in the thoracic aorta at the origin of the common carotid arteries. There is a bypass graft/stent seen between the left common carotid artery and the left subclavian artery. The bypass appears patent. The carotid arteries are patent bilaterally and demonstrate antegrade flow. There is no significant atherosclerotic plaque seen. Normal doppler arterial waveforms are seen throughout. Velocity measurements are listed below. Common carotid peak systolic velocity (cm/sec): RIGHT: 108 LEFT: 85 ICA proximal peak systolic velocity (cm/sec): RIGHT: 85 LEFT: 46 ICA mid peak systolic velocity (cm/sec): RIGHT: 88 LEFT: 57 ICA distal peak systolic velocity (cm/sec): RIGHT: 105 LEFT: 56 ICA/CC peak systolic ratio: RIGHT: 1.0 LEFT: 0.7 Antegrade flow was shown in the right vertebral artery. There is reversal of flow seen in the left vertebral artery. The external carotid arteries are patent. IMPRESSION: 1. There is no sonographic evidence of hemodynamically significant stenosis in the right or left carotid arterial system. 2. A 5 passes seen between the left common carotid artery and the left subclavian artery. This appears patent. 3. Retrograde flow is shown in the left vertebral artery, likely related to the left upper extremity bypass. Electronically signed by: Ramiro Escalera M.D. 08/07/2017 2:33 PM Dictated Date/Time: 08/07/2017 2:20 PM
--- NOTE | 2017-08-07 15:57 | CARDIOLOGY CONSULTATION ---
DATE OF CONSULTATION: 08/07/2017 DATE OF CONSULTATION: 08/07/2017 REFERRING PHYSICIAN: Dr. Ashley. PRIMARY CARE PHYSICIAN: Dr. Guido. INDICATIONS: Lightheadedness and dizziness, chronic back pain. HISTORY OF PRESENT ILLNESS: The patient is a complex 31-year-old male whose cardiac history is notable for: 1. Congenitally bicuspid aortic valve. 2. 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 3. Status post emergent aortic valve and aortic root replacement with St. Brant's mechanical valve and conduit size 27 along with coronary reimplantation. 4. Post-course complicated by cardiac tamponade requiring left thoracotomy pericardial window 07/29/2017. 5. Redo sternotomy 07/30/2015 with left subclavian bypass, right axillary cannulation with an 8 mm graft, arch to branch 30 mm branch Dacron graft and ligation of left subclavian artery, arched to branch with individual anastomosis to the right subclavian right carotid and left carotid arteries after presentation with recurrent neurologic complaints TIA. 6. Hypertension. 7. Dyslipidemia. 8. Chronic degenerative disease of the back with severe discomfort. The patient presents this admission noting episodes of dizziness and lightheadedness while on vacation approximately 1 week ago. He notes recent difficulties with lightheadedness and dizziness. He was treated with Cymbalta in attempts to control chronic back pain without narcotics. Cymbalta was not well tolerated, this was subsequently converted to Topamax but since being on Topamax he began experiencing symptoms of dizziness, lightheadedness. He has noted some chest tightness which were short and brief in nature. Notes no tachypalpitations. Does note intermittent headache. Notes no acute visual changes. He has been aggressively attempting to lose weight and is down approximately 40 pounds by his description. He notes no fevers, chills or productive cough. Notes no melena, hematochezia, dysuria or hematuria. He feels somewhat "foggy" since beginning new medication changes. ALLERGIES: None. MEDICATIONS: Prior to hospitalization were amlodipine 5 mg p.o. every day, atorvastatin 20 mg p.o. daily, bupropion 100 mg at bedtime and 300 mg q.a.m., clopidogrel 75 mg p.o. day, furosemide 40 mg p.r.n., losartan 100 mg daily, metoprolol succinate 50 mg daily in the evening, 75 mg a.m., Protonix 40 mg p.o. daily, potassium chloride 10 mg p.o. daily, Topamax 25 mg twice daily, warfarin 15 mg p.o. daily. PAST SURGICAL HISTORY: As noted as per HPI. In addition, the patient has undergone prior cholecystectomy after exploratory laparotomy and ERCP. FAMILY HISTORY: Not specifically notable for severe premature coronary disease. 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 He is a nonsmoker, rare alcohol user. PHYSICAL EXAMINATION: VITAL SIGNS: Heart rate 70, blood pressure is 105/68. There is no distinct orthostasis today on standing. HEAD, EYES, EARS, NOSE, AND THROAT: Normocephalic, atraumatic. NECK: Thick. There is referred murmur at the base of carotids. Carotid pulses are 2/4 and equal. LUNGS: Notable for mildly diminished breath sounds. There is no rhonchi, rale or wheeze. CARDIOVASCULAR EXAMINATION: Regular with crisp mechanical valve sounds, grade 1-2/6 systolic murmur. There is no diastolic murmur. There is no S3 gallop. PMI is nondisplaced. ABDOMEN: Soft, obese, nontender, no palpable hepatosplenomegaly. EXTREMITIES: Without cyanosis or clubbing. There is no peripheral edema. LABORATORY DATA: INR on presentation was 3.2 and this morning was 2.8. Troponins are negative x4. CK and MB fractions are normal. Sodium is 141, potassium 3.8, chloride 109, bicarb 24, BUN 24, creatinine is 1.1. White cell count is 5.4, hemoglobin is 13.5. EKG reveals sinus rhythm with left bundle branch block at a rate of 75. An echocardiogram is pending. IMPRESSION: The patient is a very complex 31-year-old male who has undergone prior multiple cardiovascular surgeries after her acute type 1 aortic dissection in association with a bicuspid valve and a bicuspid valve aortopathy. Mechanical prosthesis in the aortic valve position, has had difficulties with somewhat labile blood pressures recently as well as dizziness and neurologic complaints which he attributes to changes in medications between Cymbalta and Topamax attempting to be used for chronic low back pain. PLAN: Will be to review echocardiogram. Orthostatic blood pressures will be checked q. shift. Plans and treatments for chronic back pain will need to me mandated by primary service though the patient previously having been declined for surgical or pain therapy and treatments. Will follow patient in the hospital.
--- NOTE | 2017-08-07 18:23 | Progress Note ---
Internal Med Progress Note Date of Service: Aug 07, 2017. Provider Documentation: SUBJECTIVE: patient not in acute distress, reports sometimes feeling lightheaded. denies chest pain. denies shortness of breath. reports back pain OBJECTIVE: General Appearance: no apparent distress Head: normocephalic, atraumatic Eyes: normal inspection, PERRL, sclerae normal ENT: normal ENT inspection, hearing grossly normal, pharynx normal Neck: no JVD, trachea midline, heart sounds referred to neck Respiratory/Chest: chest non-tender, lungs clear, normal breath sounds, no respiratory distress, no accessory muscle use Cardiovascular: regular rate, rhythm, very prominent heart sounds audible when auscultating anterior/posterior chest and neck Abdomen/GI: normal bowel sounds, non tender, soft Back: several circular bruises on lower back area Extremities: normal inspection, some ecchymoses around the L ankle from a known trauma last week-bruises appear to be healing Neurologic/Psych: no motor/sensory deficits, alert, normal mood/affect, oriented x 3 ASSESSMENT & PLAN: 31 year old M with significant cardiac vascular history for history of Aortic repair and Aotric valve placement. who presented with anterior chest and back pain with stable imaging findings. Has history of back pain likely musculoskeletal in nature and has not been a candidate for epidural due to aortic disease. Have held patient's topiramate which was one of his pain medications because of concern if this is causing symptoms of lightheaded. Will monitor blood pressures and check orthostatics. Is eating and drinking fluids. Will give additional IV fluids if low blood pressure of orthostatic. Because of cardiovascular issues, would still want blood pressure control cont home regimen of Losartan 100mg PO daily and Norvasc 5mg PO daily. history of mechanical AoV replacement for congenital bicuspid valve-on coumadin. INR in goal range 2.5-3.5. cont current dosing and daily INR. Will obtain pain management consult for pain regimen. CXR Cardiac silhouette is mildly enlarged. Prior median sternotomy and aortic valve prosthesis. Surgical coils at the aortic arch are again seen. There is no pneumothorax, pleural effusion, focal airspace consolidation or overt pulmonary edema. No mediastinal widening identified. The bones are grossly intact. Surgical clips project over the right lung apex. IMPRESSION: No acute cardiopulmonary process. CT chest 1. Stable exam with unchanged appearance of the [place] type A dissection involving the ascending and descending thoracic aorta and imaged upper abdominal aorta extending into the origin of the left subclavian artery. 2. Cardiomegaly with prior median sternotomy, prosthetic aortic valve and postsurgical changes of the ascending thoracic aorta. 3. No acute intrathoracic abnormality identified. CT abdomen/pelvis 1. 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 2. 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 3. No bowel obstruction or pneumoperitoneum. 4. Prior cholecystectomy with unchanged mild intrahepatic biliary duct dilation of the right hepatic lobe. Carotid Ultrasound 1. There is no sonographic evidence of hemodynamically significant stenosis in the right or left carotid arterial system. 2. A 5 passes seen between the left common carotid artery and the left subclavian artery. This appears patent. 3. Retrograde flow is shown in the left vertebral artery, likely related to the left upper extremity bypass. Transthoracic Echo: full report pending Vital Signs: Date Time Temp Pulse Resp B/P (MAP) Pulse Ox O2 Delivery O2 Flow Rate FiO2 08/07/17 16:10 36.5 58 14 109/67 (81) 94 Room Air 08/07/17 16:00 99 Room Air 08/07/17 12:30 Room Air 08/07/17 12:00 99 Room Air 08/07/17 11:29 36.3 67 18 130/80 (97) 97 Room Air 72 130/78 (95) 71 128/77 (94) 08/07/17 11:16 36.6 70 20 105/68 (80) 97 Room Air 08/07/17 08:00 99 Room Air 08/07/17 07:42 36.6 71 18 137/78 (97) 99 Room Air 08/07/17 04:10 Room Air 08/07/17 04:00 36.5 69 20 111/68 (82) 98 Room Air 08/07/17 01:19 36.5 70 16 122/68 96 Room Air 08/07/17 00:05 72 17 111/53 97 08/07/17 00:01 72 17 111/53 97 Room Air 08/06/17 23:31 76 14 116/58 98 Room Air 08/06/17 23:25 71 08/06/17 23:01 76 19 137/74 98 Room Air 08/06/17 22:38 78 18 134/82 98 Room Air 08/06/17 22:11 75 22 138/67 97 08/06/17 22:06 78 15 96 08/06/17 22:01 75 17 130/59 96 08/06/17 21:56 75 18 96 08/06/17 21:51 75 20 129/62 96 08/06/17 21:46 76 20 97 08/06/17 21:41 76 16 169/80 98 08/06/17 21:36 79 19 97 08/06/17 21:31 78 13 142/90 96 08/06/17 21:26 72 13 99 08/06/17 21:21 74 23 155/72 98 08/06/17 21:16 74 19 100 08/06/17 21:11 148/72 08/06/17 21:09 68 13 98 08/06/17 21:04 70 17 99 08/06/17 21:01 136/82 08/06/17 20:59 70 26 98 08/06/17 20:54 68 14 99 08/06/17 20:51 140/63 08/06/17 20:49 71 14 98 08/06/17 20:46 163/71 08/06/17 20:31 157/86 08/06/17 20:29 71 22 98 08/06/17 20:26 154/74 08/06/17 20:24 69 16 97 08/06/17 20:21 125/61 08/06/17 20:19 161/66 08/06/17 20:19 71 15 98 08/06/17 20:16 161/66 08/06/17 20:14 70 16 97 08/06/17 20:12 98 Room Air 08/06/17 20:09 65 12 182/79 98 08/06/17 20:08 176/71 08/06/17 20:04 70 166/86 08/06/17 20:04 70 17 98 08/06/17 20:01 166/86 08/06/17 19:59 70 16 99 08/06/17 19:54 74 18 99 08/06/17 19:49 70 20 98 08/06/17 19:44 72 16 99 08/06/17 19:44 81 08/06/17 19:43 157/77 08/06/17 19:39 73 20 98 08/06/17 19:37 129/88 08/06/17 19:08 37.2 76 18 188/82 99 Room Air Lab Results: Results Past 24 Hours Test 08/06/17 19:36 08/06/17 19:45 08/06/17 22:23 08/07/17 00:55 Range/Units Creatine Kinase MB Ratio 0.3 0-3.0 Bedside Troponin I < 0.030 < 0.030 0-0.045 ng/ml Total Creatine Kinase 206 39-308 U/L Creatine Kinase MB 0.7 0.5-3.6 ng/ml Troponin I < 0.015 0-0.045 ng/ml Test 08/07/17 06:56 08/07/17 06:57 Range/Units Prothrombin Time 30.8 9.0-12.0 SECONDS Prothromb Time International Ratio 2.8 0.9-1.1 Total Creatine Kinase 183 39-308 U/L Creatine Kinase MB < 0.5 0.5-3.6 ng/ml Creatine Kinase MB Ratio 0-3.0 Troponin I < 0.015 0-0.045 ng/ml
--- NOTE | 2017-08-07 18:31 | ECHOCARDIOGRAM REPORT ---
*NOTICE TO RECEIVING LIBERTARIAN AGENCY This information is strictly Confidential and protected under [place] law. [place] law prohibits you from making any further disclosure of this information unless further disclosure is expressly permitted by the written consent of the person to whom it pertains or is authorized by law. A general authorization for the release of medical or other information is not sufficient for this purpose. Hospital accepts no responsibility if the information is made available to any other person, INCLUDING THE PATIENT. Interpretation Summary * Name: ROWDY ARMIJO Study Date: 08/07/2017 01:50 PM BP: 128/77 mmHg * Patient Location: [facility]\S\N289\S\1 HR: 71 * : 1985 (M/d/yyyy) Gender: Male Height: 72 in * Age: 31 yrs Ethnicity: [place] Weight: 306 lb * Ordering Physician: Sara Ashley * Referring Physician: Self, Referred * Performed By: Misa Cooney RDCS * * Reason For Study: CHEST PAIN, H/O AOV REPLACEMENT, ALANIS A DISSECT * BSA: 2.6 m2 * -- Conclusions -- * The left ventricle is normal in size. * There is mild concentric left ventricular hypertrophy. * Septal motion is consistent with conduction abnormality. * Septal motion is consistent with post-operative state. * No regional wall motion abnormalities noted. * Ejection Fraction = 65-70%. * There is a bi-leaflet (St. Brant) aortic mechanical prosthesis. * The gradient is normal for this prosthetic aortic valve. * The aortic root is normal size. * Aortic root conduit without abnormality. Procedure Details * A contrast injection of Definity was performed to improve assessment of LV function. * Contrast was injected into an intravenous site in the right arm. * One vial of Definity ultrasound contrast was diluted in normal saline to a total volume of 10 ml. A total of '2' ml of solution was administered during imaging. * Lot # [id number] of Definity utilized for procedure. * Expiration date AUG 20. * The attending nurse who injected the contrast agent was EDUARDA PERDUE RN. * A complete two-dimensional transthoracic echocardiogram was performed (2D, M-mode, Doppler and color flow Doppler). Left Ventricle * The left ventricle is normal in size. * There is mild concentric left ventricular hypertrophy. * Ejection Fraction = 65-70%. * Left ventricular systolic function is normal. * Septal motion is consistent with conduction abnormality. * Septal motion is consistent with post-operative state. * No regional wall motion abnormalities noted. Right Ventricle * The right ventricle is normal in size and function. Atria * The left atrial size is normal. * Right atrial size is normal. * No ASD detected; PFO is not assessed. Mitral Valve * The mitral valve anatomy is normal. * There is no mitral valve stenosis. * There is trace mitral regurgitation. Tricuspid Valve * The tricuspid valve is normal. * There is no tricuspid stenosis. * There is trace tricuspid regurgitation. * Doppler findings do not suggest pulmonary hypertension. Aortic Valve * There is a bi-leaflet (St. Brant) aortic mechanical prosthesis. * The gradient is normal for this prosthetic aortic valve. Pulmonic Valve * The pulmonic valve is not well visualized. Great Vessels * The aortic root is normal size. * Aortic root conduit without abnormality. Pericardium/Pleural * There is no pericardial effusion. Great Vessels * Normal inferior vena cava diameter and respiratory variation suggests normal central venous pressure. MMode 2D Measurements and Calculations IVSd 1.2 cm IVSs 1.7 cm LVIDd 4.9 cm LVIDs 3.6 cm LVPWd 1.4 cm LVPWs 1.8 cm IVS/LVPW 0.89 FS 27.7 % EDV(Teich) 114.0 ml ESV(Teich) 53.0 ml EF(Teich) 53.5 % EDV(cubed) 119.2 ml ESV(cubed) 45.1 ml EF(cubed) 62.1 % % IVS thick 42.4 % % LVPW thick 35.2 % LV mass(C)d 249.4 grams LV mass(C)dI 97.7 grams/m\S\2 LV mass(C)s 261.3 grams LV mass(C)sI 102.4 grams/m\S\2 SV(Teich) 61.0 ml SI(Teich) 23.9 ml/m\S\2 SV(cubed) 74.1 ml SI(cubed) 29.0 ml/m\S\2 Ao root diam 3.7 cm Ao root area 11.0 cm\S\2 LA dimension 3.9 cm LA/Ao 1.0 LVOT diam 2.0 cm LVOT area 3.1 cm\S\2 LVAd ap4 47.6 cm\S\2 LVLd ap4 10.0 cm EDV(MOD-sp4) 183.8 ml EDV(sp4-el) 191.8 ml LVAs ap4 29.9 cm\S\2 LVLs ap4 8.5 cm ESV(MOD-sp4) 85.5 ml ESV(sp4-el) 88.8 ml EF(MOD-sp4) 53.5 % EF(sp4-el) 53.7 % LVAd ap2 40.9 cm\S\2 LVLd ap2 9.5 cm EDV(MOD-sp2) 142.4 ml EDV(sp2-el) 148.6 ml LVAs ap2 24.1 cm\S\2 LVLs ap2 8.2 cm ESV(MOD-sp2) 57.5 ml ESV(sp2-el) 60.5 ml EF(MOD-sp2) 59.6 % EF(sp2-el) 59.3 % LVLd %diff -50 % EDV(MOD-bp) 167.1 ml LVLs %diff -4.52 % ESV(MOD-bp) 71.5 ml EF(MOD-bp) 57.2 % SV(MOD-sp4) 98.3 ml SI(MOD-sp4) 38.5 ml/m\S\2 SV(MOD-sp2) 84.9 ml SI(MOD-sp2) 33.3 ml/m\S\2 SV(MOD-bp) 95.6 ml SI(MOD-bp) 37.5 ml/m\S\2 SV(sp4-el) 103.0 ml SI(sp4-el) 40.3 ml/m\S\2 SV(sp2-el) 88.1 ml SI(sp2-el) 34.5 ml/m\S\2 Doppler Measurements and Calculations MV E max jen 70.6 cm/sec MV A max jen 35.0 cm/sec MV E/A 2.0 MV dec time 0.22 sec Ao V2 max 198.4 cm/sec Ao max PG 15.7 mmHg Ao max PG (full) 12.9 mmHg Ao V2 mean 133.9 cm/sec Ao mean PG 8.2 mmHg Ao mean PG (full) 6.4 mmHg Ao V2 VTI 38.4 cm KENDAL(I,A) 1.5 cm\S\2 KENDAL(I,D) 1.5 cm\S\2 KENDAL(V,A) 1.3 cm\S\2 KENDAL(V,D) 1.3 cm\S\2 LV V1 max PG 2.9 mmHg LV V1 mean PG 1.8 mmHg LV V1 max 84.9 cm/sec LV V1 mean 64.0 cm/sec LV V1 VTI 19.3 cm SV(Ao) 424.1 ml SI(Ao) 166.1 ml/m\S\2 SV(LVOT) 59.4 ml SI(LVOT) 23.3 ml/m\S\2
[2017-08-07] MEDS ORDERED: METOPROLOL SUCC 50MG EXT REL TAB PO SCH (21:00)
[2017-08-07] MEDS ORDERED: BuPROPion SR 100 MG TABCR PO SCH (21:00)
[2017-08-08] VITALS (9 sets, daily range): BP systolic 101–134; BP diastolic 61–76; PULSE 53–71; TEMP 36.4–36.9; O2SAT 97–99
[2017-08-08] MEDS: ACETAMINOPHEN 325 MG TAB PO PRN (04:53)
[2017-08-08 06:14] LABS: PROTHROMBIN TIME (PATIENT) 33.9 SECONDS (9.0-12.0)
[2017-08-08] MEDS ORDERED: TAPENTADOL HCL 50 MG TAB PO PRN (09:00)
[2017-08-08] MEDS: AMLODIPINE BESYLATE 5 MG TAB PO SCH (09:03)
[2017-08-08] MEDS: CLOPIDOGREL BISULFATE 75 MG TAB PO SCH (09:04)
[2017-08-08] MEDS: ATORVASTATIN 20 MG TAB PO SCH (09:04)
[2017-08-08] MEDS: LOSARTAN POTASSIUM 50 MG TAB PO SCH (09:04)
[2017-08-08] MEDS: METOPROLOL SUCC 50MG EXT REL TAB PO SCH (09:05)
[2017-08-08] MEDS: BuPROPion XL 300 MG TABCR PO SCH (09:05)
[2017-08-08] MEDS: PANTOprazole SOD 40 MG TAB PO SCH (09:05)
[2017-08-08] MEDS ORDERED: LIDODERM (LIDOCAINE) PATCH 5% TD SCH (10:00)
[2017-08-08] MEDS ORDERED: LDDP5 TD (13:08)
[2017-08-08] MEDS ORDERED: NCY50 PO (13:08)
--- NOTE | 2017-08-08 13:21 | Progress Note ---
Internal Med Progress Note Date of Service: Aug 08, 2017. Provider Documentation: SUBJECTIVE: patient not in acute distress, reports pain of back better today. reports not feeling lightheaded. has been ambulatory in the [facility] OBJECTIVE: General Appearance: no apparent distress Head: normocephalic, atraumatic Eyes: normal inspection, PERRL, sclerae normal ENT: hearing grossly normal, pharynx normal Neck: no JVD, trachea midline, heart sounds referred to neck Respiratory/Chest: chest non-tender, lungs clear, normal breath sounds, no respiratory distress, no accessory muscle use Cardiovascular: regular rate, rhythm, very prominent heart sounds Abdomen/GI: normal bowel sounds, non tender, soft Back: several circular bruises on lower back area Extremities: normal inspection, some ecchymoses around the L ankle from a known trauma last week-bruises appear to be healing Neurologic/Psych: no motor/sensory deficits, alert, normal mood/affect, oriented x 3 ASSESSMENT & PLAN: 31 year old M with significant cardiac vascular history for history of Aortic repair and Aotric valve placement. who presented with anterior chest and back pain with stable imaging findings. Has history of back pain likely musculoskeletal in nature and has not been a candidate for epidural due to aortic disease. Have held patient's topiramate which was one of his pain medications because of concern if this is causing symptoms of lightheaded. Pain management have started patient on Lidocaine patch and Nucynta 50 mg prn Cardiovascular workup without acute findings, blood pressure controlled without hypotension on Losartan and Norvasc, heart rate controlled with beta laine and as per cardiology it is okay for patient's heart rate to be in the 50 beats per minute CXR Cardiac silhouette is mildly enlarged. Prior median sternotomy and aortic valve prosthesis. Surgical coils at the aortic arch are again seen. There is no pneumothorax, pleural effusion, focal airspace consolidation or overt pulmonary edema. No mediastinal widening identified. The bones are grossly intact. Surgical clips project over the right lung apex. IMPRESSION: No acute cardiopulmonary process. CT chest 1. Stable exam with unchanged appearance of the [place] type A dissection involving the ascending and descending thoracic aorta and imaged upper abdominal aorta extending into the origin of the left subclavian artery. 2. Cardiomegaly with prior median sternotomy, prosthetic aortic valve and postsurgical changes of the ascending thoracic aorta. 3. No acute intrathoracic abnormality identified. CT abdomen/pelvis 1. 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 2. 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 3. No bowel obstruction or pneumoperitoneum. 4. Prior cholecystectomy with unchanged mild intrahepatic biliary duct dilation of the right hepatic lobe. Carotid Ultrasound 1. There is no sonographic evidence of hemodynamically significant stenosis in the right or left carotid arterial system. 2. A 5 passes seen between the left common carotid artery and the left subclavian artery. This appears patent. 3. Retrograde flow is shown in the left vertebral artery, likely related to the left upper extremity bypass. Transthoracic Echo: Left Ventricle The left ventricle is normal in size. There is mild concentric left ventricular hypertrophy. Ejection Fraction = 65-70%. Left ventricular systolic function is normal. Septal motion is consistent with conduction abnormality. Septal motion is consistent with post-operative state. No regional wall motion abnormalities noted. Right Ventricle The right ventricle is normal in size and function. Atria The left atrial size is normal. Right atrial size is normal. No ASD detected; PFO is not assessed. Mitral Valve The mitral valve anatomy is normal. There is no mitral valve stenosis. There is trace mitral regurgitation. Tricuspid Valve The tricuspid valve is normal. There is no tricuspid stenosis. There is trace tricuspid regurgitation. Doppler findings do not suggest pulmonary hypertension. Aortic Valve There is a bi-leaflet (St. Brant) aortic mechanical prosthesis. The gradient is normal for this prosthetic aortic valve. Pulmonic Valve The pulmonic valve is not well visualized. Great Vessels The aortic root is normal size. Aortic root conduit without abnormality. Pericardium/Pleural There is no pericardial effusion. Great Vessels Normal inferior vena cava diameter and respiratory variation suggests normal central venous pressure. Disposition: To be discharged with prescription for Nucynta and Lidocaine patch as new medications recommended by pain management Patient can continue other home medications but stop topiramate Follow up with 08/14/2017 11:20 AM Brian Guido MD Internal Medicine [facility] 09/05/2017 11:45 AM Pepe Dupont MD Cardiology, [facility] Vital Signs: Date Time Temp Pulse Resp B/P (MAP) Pulse Ox O2 Delivery O2 Flow Rate FiO2 08/08/17 11:02 36.9 58 20 121/74 (90) 99 Room Air 08/08/17 08:55 62 134/73 (93) 08/08/17 08:00 97 Room Air 08/08/17 07:06 36.4 53 18 106/62 (77) 97 Room Air 08/08/17 04:55 56 107/67 (80) 64 111/76 (88) 71 118/74 (89) 08/08/17 04:05 Room Air 08/08/17 03:42 36.5 62 18 101/61 (74) 99 Room Air 08/08/17 00:05 98 Room Air 08/07/17 23:21 36.7 65 18 105/63 (77) 97 Room Air 08/07/17 20:00 98 Room Air 08/07/17 19:40 36.5 61 18 117/72 (87) 98 Room Air 08/07/17 16:10 36.5 58 14 109/67 (81) 94 Room Air 08/07/17 16:00 99 Room Air Lab Results: Results Past 24 Hours Test 08/08/17 05:02 Range/Units Prothrombin Time 33.9 9.0-12.0 SECONDS Prothromb Time International Ratio 3.0 0.9-1.1
--- NOTE | 2017-08-08 13:25 | Discharge Instructions ---
Discharge Instructions Date of Service Aug 08, 2017. Admission Reason for Admission: Chest Pain Discharge Discharge Diagnosis / Problem: back pain, hypertension, non cardiac related chest pain Discharge Goals Goal(s): Improve function Activity Recommendations Activity Limitations: as noted below Lifting Limitations: until after follow-up appointment Exercise/Sports Limitations: until after follow-up appointment Shower/Bathe: no limitations Driving or Machine Use: no limitations . Instructions / Follow-Up Instructions / Follow-Up Disposition: To be discharged with prescription for Nucynta and Lidocaine patch as new medications recommended by pain management Patient can continue other home medications but stop topiramate Follow up with 08/14/2017 11:20 AM Brian Guido MD Internal Medicine [facility] 09/05/2017 11:45 AM Pepe Dupont MD Cardiology, [facility] Diet Patient's current hospital diet: AHA Diet (Heart Healthy) Discharge Diet Recommended Diet: AHA Diet (Heart Healthy) Procedures Procedures Performed: Cardiovascular workup without acute findings, blood pressure controlled without hypotension on Losartan and Norvasc, heart rate controlled with beta laine and as per cardiology it is okay for patient's heart rate to be in the 50 beats per minute CXR Cardiac silhouette is mildly enlarged. Prior median sternotomy and aortic valve prosthesis. Surgical coils at the aortic arch are again seen. There is no pneumothorax, pleural effusion, focal airspace consolidation or overt pulmonary edema. No mediastinal widening identified. The bones are grossly intact. Surgical clips project over the right lung apex. IMPRESSION: No acute cardiopulmonary process. CT chest 1. 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 2. Cardiomegaly with prior median sternotomy, prosthetic aortic valve and postsurgical changes of the ascending thoracic aorta. 3. No acute intrathoracic abnormality identified. CT abdomen/pelvis 1. Unchanged appearance of the [place] type A dissection which extends into the abdominal aorta and right common iliac artery. 2. 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 3. No bowel obstruction or pneumoperitoneum. 4. Prior cholecystectomy with unchanged mild intrahepatic biliary duct dilation of the right hepatic lobe. Carotid Ultrasound 1. There is no sonographic evidence of hemodynamically significant stenosis in the right or left carotid arterial system. 2. A 5 passes seen between the left common carotid artery and the left subclavian artery. This appears patent. 3. Retrograde flow is shown in the left vertebral artery, likely related to the left upper extremity bypass. Transthoracic Echo: Left Ventricle The left ventricle is normal in size. There is mild concentric left ventricular hypertrophy. Ejection Fraction = 65-70%. Left ventricular systolic function is normal. Septal motion is consistent with conduction abnormality. Septal motion is consistent with post-operative state. No regional wall motion abnormalities noted. Right Ventricle The right ventricle is normal in size and function. Atria The left atrial size is normal. Right atrial size is normal. No ASD detected; PFO is not assessed. Mitral Valve The mitral valve anatomy is normal. There is no mitral valve stenosis. There is trace mitral regurgitation. Tricuspid Valve The tricuspid valve is normal. There is no tricuspid stenosis. There is trace tricuspid regurgitation. Doppler findings do not suggest pulmonary hypertension. Aortic Valve There is a bi-leaflet (St. Brant) aortic mechanical prosthesis. The gradient is normal for this prosthetic aortic valve. Pulmonic Valve The pulmonic valve is not well visualized. Great Vessels The aortic root is normal size. Aortic root conduit without abnormality. Pericardium/Pleural There is no pericardial effusion. Great Vessels Normal inferior vena cava diameter and respiratory variation suggests normal central venous pressure Pending Studies Studies pending at discharge: no Laboratory Results 08/06/17 18:25 Red Blood Count 4.54, Mean Corpuscular Volume 89.2, Mean Corpuscular Hemoglobin 29.7, Mean Corpuscular Hemoglobin Concent 33.3, Mean Platelet Volume 10.8, Neutrophils (%) (Auto) 50.0, Lymphocytes (%) (Auto) 35.7, Monocytes (%) (Auto) 11.5, Eosinophils (%) (Auto) 2.2, Basophils (%) (Auto) 0.4, Neutrophils # (Auto ) 2.73, Lymphocytes # (Auto) 1.95, Monocytes # (Auto) 0.63, Eosinophils # (Auto ) 0.12, Basophils # (Auto) 0.02 08/06/17 18:25 Test 08/06/17 18:25 08/06/17 22:23 08/07/17 06:57 08/08/17 05:02 White Blood Count 5.46 K/uL (4.8-10.8) Red Blood Count 4.54 M/uL (4.7-6.1) Hemoglobin 13.5 g/dL (14.0-18.0) Hematocrit 40.5 % (42-52) Mean Corpuscular Volume 89.2 fL (80-100) Mean Corpuscular Hemoglobin 29.7 pg (25-34) Mean Corpuscular Hemoglobin Concent 33.3 g/dl (32-36) Platelet Count 212 K/uL (130-400) Mean Platelet Volume 10.8 fL (7.4-10.4) Neutrophils (%) (Auto) 50.0 % Lymphocytes (%) (Auto) 35.7 % Monocytes (%) (Auto) 11.5 % Eosinophils (%) (Auto) 2.2 % Basophils (%) (Auto) 0.4 % Neutrophils # (Auto) 2.73 K/uL (1.4-6.5) Lymphocytes # (Auto) 1.95 K/uL (1.2-3.4) Monocytes # (Auto) 0.63 K/uL (0.11-0.59) Eosinophils # (Auto) 0.12 K/uL (0-0.5) Basophils # (Auto) 0.02 K/uL (0-0.2) RDW Standard Deviation 44.2 fL (36.4-46.3) RDW Coefficient of Variation 13.7 % (11.5-14.5) Immature Granulocyte % (Auto) 0.2 % Immature Granulocyte # (Auto) 0.01 K/uL (0.00-0.02) Anion Gap 10.0 mmol/L (3-11) Est Creatinine Clear Calc Drug Dose 141.8 ml/min Estimated GFR () 103.9 Estimated GFR (Non- 89.6 BUN/Creatinine Ratio 21.7 (10-20) Calcium Level 8.6 mg/dl (8.5-10.1) Total Bilirubin 1.3 mg/dl (0.2-1) Aspartate Amino Transf (AST/SGOT) 43 U/L (15-37) Alanine Aminotransferase (ALT/SGPT) 62 U/L (12-78) Alkaline Phosphatase 86 U/L (45-117) Total Protein 7.8 gm/dl (6.4-8.2) Albumin 4.1 gm/dl (3.4-5.0) Globulin 3.7 gm/dl (2.5-4.0) Albumin/Globulin Ratio 1.0 (0.9-2) Lipase 115 U/L (73-393) Bedside Troponin I < 0.030 ng/ml (0-0.045) Total Creatine Kinase 183 U/L (39-308) Creatine Kinase MB < 0.5 ng/ml (0.5-3.6) Creatine Kinase MB Ratio (0-3.0) Troponin I < 0.015 ng/ml (0-0.045) Prothrombin Time 33.9 SECONDS (9.0-12.0) Prothromb Time International Ratio 3.0 (0.9-1.1) Medical Emergencies . Who to Call and When: Medical Emergencies: If at any time you feel your situation is an emergency, please call 911 immediately. . Non-Emergent Contact Non-Emergency issues call your: Primary Care Provider, Computer Console Operator . . "Provider Documentation" section prepared by Adriano Iyer. . VTE Core Measure Inpt VTE Proph given/why not?: Warfarin (Coumadin), SCD's
--- NOTE | 2017-08-08 13:27 | Discharge Summary ---
Discharge Summary Date of Service Aug 08, 2017. Discharge Summary Admission Date: Aug 06, 2017 at 23:32 Discharge Date: Aug 08, 2017 Discharge Disposition: Home Principal Diagnosis: back pain, non cardiac chest pain, hypertension, lightheadedness Procedures: CXR Cardiac silhouette is mildly enlarged. Prior median sternotomy and aortic valve prosthesis. Surgical coils at the aortic arch are again seen. There is no pneumothorax, pleural effusion, focal airspace consolidation or overt pulmonary edema. No mediastinal widening identified. The bones are grossly intact. Surgical clips project over the right lung apex. IMPRESSION: No acute cardiopulmonary process. CT chest 1. 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 2. Cardiomegaly with prior median sternotomy, prosthetic aortic valve and postsurgical changes of the ascending thoracic aorta. 3. No acute intrathoracic abnormality identified. CT abdomen/pelvis 1. Unchanged appearance of the [place] type A dissection which extends into the abdominal aorta and right common iliac artery. 2. 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 3. No bowel obstruction or pneumoperitoneum. 4. Prior cholecystectomy with unchanged mild intrahepatic biliary duct dilation of the right hepatic lobe. Carotid Ultrasound 1. There is no sonographic evidence of hemodynamically significant stenosis in the right or left carotid arterial system. 2. A 5 passes seen between the left common carotid artery and the left subclavian artery. This appears patent. 3. Retrograde flow is shown in the left vertebral artery, likely related to the left upper extremity bypass. Transthoracic Echo: Left Ventricle The left ventricle is normal in size. There is mild concentric left ventricular hypertrophy. Ejection Fraction = 65-70%. Left ventricular systolic function is normal. Septal motion is consistent with conduction abnormality. Septal motion is consistent with post-operative state. No regional wall motion abnormalities noted. Right Ventricle The right ventricle is normal in size and function. Atria The left atrial size is normal. Right atrial size is normal. No ASD detected; PFO is not assessed. Mitral Valve The mitral valve anatomy is normal. There is no mitral valve stenosis. There is trace mitral regurgitation. Tricuspid Valve The tricuspid valve is normal. There is no tricuspid stenosis. There is trace tricuspid regurgitation. Doppler findings do not suggest pulmonary hypertension. Aortic Valve There is a bi-leaflet (St. Brant) aortic mechanical prosthesis. The gradient is normal for this prosthetic aortic valve. Pulmonic Valve The pulmonic valve is not well visualized. Great Vessels The aortic root is normal size. Aortic root conduit without abnormality. Pericardium/Pleural There is no pericardial effusion. Great Vessels Normal inferior vena cava diameter and respiratory variation suggests normal central venous pressure. Consultations: cardiology Medication Reconciliation New Medications: Lidocaine (Lidocaine) 1 Patch Tdsy 1 PATCH TD QAM for 7 Days, #7 PATCH Tapentadol HCl (Nucynta) 50 Mg Tab 50 MG PO Q6H PRN for Pain for 7 Days, #28 TAB Continued Medications: Amlodipine (Norvasc) 5 Mg Tab 5 MG PO DAILY, TAB Atorvastatin (Lipitor) 20 Mg Tab 20 MG PO DAILY, TAB Bupropion (Wellbutrin Sr) 100 Mg Ertab 1 TAB PO HS Bupropion HCl (Bupropion HCl Xl) 300 Mg Tabcr 300 MG PO QAM Clopidogrel Bisulfate (Clopidogrel) 75 Mg Tab 75 MG PO DAILY Furosemide (Furosemide) 40 Mg Tab 40 MG PO PRN Losartan Potassium (Cozaar) 100 Mg Tab 100 MG PO DAILY Metoprolol Succinate (Metoprolol Succinate ER) 50 Mg Tabcr 50 MG PO HS Metoprolol Succinate (Metoprolol Succinate ER) 50 Mg Tabcr 75 MG PO QAM Pantoprazole (Protonix) 40 Mg Tab 40 MG PO DAILY, #30 TAB Potassium Chloride (Potassium Chloride Er) 10 Meq Tab 10 MEQ PO PRN, TAB WHEN FUROSEMIDE IS TAKEN Warfarin Sodium (Warfarin Sodium) 5 Mg Tab 15 MG PO DAILY, TAB Discontinued Medications: Topiramate (Topiramate) 25 Mg Tab 1 TAB PO BID Admission Information HPI (per Admitting provider): 31 yo M with complicated h/o related to 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 He states that he has had multiple medication changes recently in an effort to find a treatment for controlling his chronic severe lower back pain without narcotics. He reports being on Buproprion since his surgery in 2013, taking 300mg in the morning and 100mg in the evening. He was started on Cymbalta and was titrated up with no effect. He was then placed on Topamax and did well on the once daily dosing, but went to the twice daily dosing shortly before experiencing his symptoms. Simultaneously, he stopped the cymbalta and was put back on the additional 100mg dose at night that he was previously taking. He admits that while this was changing, he was also vacationing in the [place] and was drinking just prior to the change. He denies any alcohol use for the rest of his vacation week and lightheadedness symptoms persisted. He cannot identify a provoking or palliating factor for symptom onset including positional change or exertion. Symptoms are coming on at rest, etc. He states that his lightheadedness and chest discomfort last anywhere to a few seconds to a few minutes and are intermittent. Symptoms are not associated with SOB, diaphoresis. He does admit to some nausea this morning but no vomiting, GI bleeding, diarrhea. He is working on weight loss and reports recently losing 40 lbs. He was last seen in the Cardiology office in March 2017 and was instructed to continue his current therapy from a cardiac standpoint. It has been one year since his last echo which revealed EF 45%, slightly elevated velocity across his prosthetic aortic valve, and septal dyskinesis consistent with his post-operative state and known LBBB. He is a nonsmoker. ROS also reveals some numbness to his tongue and teeth and describes feeling as though he is in a mental fog. Denies sick contacts, denies swimming in the ocean. Denies any drug use. Physical Exam (per Admitting): General Appearance: no apparent distress, + obese Head: normocephalic, atraumatic Eyes: normal inspection, PERRL, sclerae normal ENT: normal ENT inspection, hearing grossly normal, pharynx normal Neck: no JVD, trachea midline Respiratory/Chest: chest non-tender, lungs clear, normal breath sounds, no respiratory distress, no accessory muscle use Cardiovascular: regular rate, rhythm, no edema, no gallop, no JVD, no murmur , normal peripheral pulses, + pertinent finding (mechanical valve heard) Abdomen/GI: normal bowel sounds, non tender, soft Back: + pertinent finding (several circular bruises on lower back area. 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 ) Hospital Course 31 year old M with significant cardiac vascular history for history of Aortic repair and Aotric valve placement. who presented with anterior chest and back pain with stable imaging findings. Has history of back pain likely musculoskeletal in nature and has not been a candidate for epidural due to aortic disease. Have held patient's topiramate which was one of his pain medications because of concern if this is causing symptoms of lightheaded. Pain management have started patient on Lidocaine patch and Nucynta 50 mg prn Cardiovascular workup without acute findings, blood pressure controlled without hypotension on Losartan and Norvasc, heart rate controlled with beta laine and as per cardiology it is okay for patient's heart rate to be in the 50 beats per minute CXR Cardiac silhouette is mildly enlarged. Prior median sternotomy and aortic valve prosthesis. Surgical coils at the aortic arch are again seen. There is no pneumothorax, pleural effusion, focal airspace consolidation or overt pulmonary edema. No mediastinal widening identified. The bones are grossly intact. Surgical clips project over the right lung apex. IMPRESSION: No acute cardiopulmonary process. CT chest 1. 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 2. Cardiomegaly with prior median sternotomy, prosthetic aortic valve and postsurgical changes of the ascending thoracic aorta. 3. No acute intrathoracic abnormality identified. CT abdomen/pelvis 1. 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 2. 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 3. No bowel obstruction or pneumoperitoneum. 4. Prior cholecystectomy with unchanged mild intrahepatic biliary duct dilation of the right hepatic lobe. Carotid Ultrasound 1. There is no sonographic evidence of hemodynamically significant stenosis in the right or left carotid arterial system. 2. A 5 passes seen between the left common carotid artery and the left subclavian artery. This appears patent. 3. Retrograde flow is shown in the left vertebral artery, likely related to the left upper extremity bypass. Transthoracic Echo: Left Ventricle The left ventricle is normal in size. There is mild concentric left ventricular hypertrophy. Ejection Fraction = 65-70%. Left ventricular systolic function is normal. Septal motion is consistent with conduction abnormality. Septal motion is consistent with post-operative state. No regional wall motion abnormalities noted. Right Ventricle The right ventricle is normal in size and function. Atria The left atrial size is normal. Right atrial size is normal. No ASD detected; PFO is not assessed. Mitral Valve The mitral valve anatomy is normal. There is no mitral valve stenosis. There is trace mitral regurgitation. Tricuspid Valve The tricuspid valve is normal. There is no tricuspid stenosis. There is trace tricuspid regurgitation. Doppler findings do not suggest pulmonary hypertension. Aortic Valve There is a bi-leaflet (St. Brant) aortic mechanical prosthesis. The gradient is normal for this prosthetic aortic valve. Pulmonic Valve The pulmonic valve is not well visualized. Great Vessels The aortic root is normal size. Aortic root conduit without abnormality. Pericardium/Pleural There is no pericardial effusion. Great Vessels Normal inferior vena cava diameter and respiratory variation suggests normal central venous pressure. Disposition: To be discharged with prescription for Nucynta and Lidocaine patch as new medications recommended by pain management Patient can continue other home medications but stop topiramate Follow up with 08/14/2017 11:20 AM Brian Guido MD Internal Medicine [facility] 09/05/2017 11:45 AM Pepe Dupont MD Cardiology, [facility] Total time spent on discharge = 40 minutes This includes examination of the patient, discharge planning, medication reconciliation, and communication with other providers. Discharge Instructions Disposition: To be discharged with prescription for Nucynta and Lidocaine patch as new medications recommended by pain management Patient can continue other home medications but stop topiramate Follow up with 08/14/2017 11:20 AM Brian Guido MD Internal Medicine [facility] 09/05/2017 11:45 [facility]
--- NOTE | 2017-08-08 16:19 | PROGRESS NOTE ---
DATE: 08/08/2017 The patient seen and examined. Chart, medications, telemetry reviewed. SUBJECTIVE: The patient continues to experience occasional lightheadedness with sudden standing but notes no chest pains, notes no tachypalpitations. Heart rates have been bradycardic, but no profound bradycardia or pauses. Extensive cardiac evaluation since admission including echocardiograms, CT scan of the chest and carotid ultrasound demonstrates chronic dissection findings but no acute changes. Overall, feels improved this morning. Feels Nucynta has aided in symptoms of back pain and discomfort. Overall, mostly feels improved. Notes in the past Cymbalta has been more effective at controlling emotional stressors than Wellbutrin; feels emotional stressors led to at least part of some of his current complaints. OBJECTIVE: VITAL SIGNS: Heart rate is 58, blood pressure is 120/74. NECK: Thin. There is no jugular venous distention. There is no carotid bruits audible. LUNGS: Clear to auscultation. CARDIOVASCULAR: Regular. There is no S3 gallop. ABDOMEN: Soft, nontender. EXTREMITIES: Without cyanosis or clubbing. There is no peripheral edema. IMPRESSION: Complex 31-year-old male with underlying history of vascular disease. Clinically stable. Normally functioning LV and mechanical aortic valve prosthesis. Recent difficulties with worsening of emotional stressors, back pain and discomfort and acute symptoms of dizziness and lightheadedness in association with probable Topamax use. He feels current dosings of Nucynta and lidocaine patch have aided. Can be discharged to home on current medications. Will discuss either with myself at the end of the month or with primary care physician regarding potential alternate uses of anxiolytics noting Cymbalta he felt to be most effective in recent testings personally.
--- NOTE | 2017-08-08 16:41 | Pain Management Consultation ---
Pain Management Consultation Date of Consultation Aug 08, 2017. Reason for Consultation Assistance with pain management. Pain Location 1 - Axial low back pain. 2 - Intermittent radicular pain. History Deep Fong is a 31-year-old male admitted to [facility] for complaints of dizziness. He has a history of aortic dissection and chronic low back pain attributed to degenerative disc disease of the lumbar spine. He also has significant comorbid conditions including history of bicuspid aortic valve, chronic anticoagulation and antiplatelet therapy for aortic valve replacement. He reports expressing axial low back pain of chronic duration. Pain occurs with minimal physical activity including activities of daily living. Pain is predominantly distal lumbar spine and intermittently radiates into the left lower extremity and the posterior lateral aspect as well as right lateral lower extremity up to the knee. He denies any motor weakness, saddle anesthesia, or bowel or bladder incontinence related to his pain. Previously, he has been off her interventional therapy however, because he is not been able to discontinue his antiplatelet and anticoagulant meds, interferential procedures has been deferred. He has tried gabapentin, duloxetine, as well as Topamax for his symptoms. He reported some efficacy with Topamax but it is felt that Topamax can tribute to him feeling lightheaded and dizzy and therefore being admitted to further workup and especially in view of his history of aortic dissection to [facility]. His cardiac evaluation has been negative for any cause of the dizziness. He is Topamax has been discontinued. He reported some efficacy with Cymbalta with regards to his anxiety but felt that he had minimal efficacy with regards to his back pain. When severe, he rates the back pain as 8/10 and 2/10 when minimal. His symptoms are relieved by assuming supine, immobile position. Reports sleep disturbance and limitation in his ability vigorous physical activity as result of his chronic axial low back pain. He reports that he has undergone evaluation is outpatient at [facility] including an MRI and was diagnosed of having severe degenerative disc disease of the lumbar spine. 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 Past Medical/Surgical History (1) Aortic dissection (2) HLD (hyperlipidemia) (3) Heart failure (4) Amaurosis fugax of right eye (5) hypospadias surgery (6) S/P ERCP (7) H/O mechanical aortic valve replacement (8) S/P cholecystectomy (9) S/P AAA repair (10) History of ERCP (11) H/O exploratory laparotomy Family History Diabetes mellitus FHx: heart disease Hypertension Social / Work History Smokeless Tobacco Use: No Alcohol Use: occasionally Marital Status: single Housing Status: lives with family (lives with his father) Occupation: employed (construction) Allergies Coded Allergies: No Known Allergies (Unverified , 08/06/17) Medications Current Inpatient Medications Medications (Trade) Dose Ordered Sig/Kathy Route Start Time Stop Time Status Last Admin Dose Admin Ioversol (Optiray 320) 111 ml UD PRN IV 08/06/17 19:45 08/10/17 19:44 Acetaminophen (Tylenol Tab) 650 mg Q4H PRN PO 08/06/17 23:45 09/05/17 23:44 08/08/17 04:53 650 MG Ondansetron HCl (Zofran Inj) 4 mg Q6H PRN IV 08/06/17 23:45 09/05/17 23:44 08/07/17 15:57 4 MG Polyethylene (Miralax Powder Packet) 17 gm DAILY PRN PO 08/06/17 23:45 09/05/17 23:44 Miscellaneous (Iv Fluids Completed) 1 ea PRN PRN N/A 08/06/17 23:45 08/06/18 23:44 Amlodipine Besylate (Norvasc Tab) 5 mg DAILY PO 08/07/17 09:00 09/06/17 08:59 08/07/17 08:47 5 MG Atorvastatin Calcium (Lipitor Tab) 20 mg DAILY PO 08/07/17 09:00 09/06/17 08:59 08/07/17 08:48 20 MG Bupropion HCl (Wellbutrin-Sr Tab) 100 mg HS PO 08/07/17 21:00 09/06/17 20:59 08/07/17 21:10 100 MG Bupropion HCl (Wellbutrin-Xl Tab) 300 mg QAM PO 08/07/17 09:00 09/06/17 08:59 08/07/17 08:47 300 MG Clopidogrel Bisulfate (plAVix TAB) 75 mg DAILY PO 08/07/17 09:00 09/06/17 08:59 08/07/17 08:48 75 MG Losartan Potassium (coZAAR TAB) 100 mg DAILY PO 08/07/17 09:00 09/06/17 08:59 08/07/17 08:48 100 MG Metoprolol Succinate (Toprol Xl Tab) 50 mg HS PO 08/07/17 21:00 09/06/17 20:59 08/07/17 21:08 50 MG Metoprolol Succinate (Toprol Xl Tab) 75 mg QAM PO 08/07/17 09:00 09/06/17 08:59 08/07/17 08:48 75 MG Pantoprazole Sodium (Protonix Tab) 40 mg DAILY PO 08/07/17 09:00 09/06/17 08:59 08/07/17 08:47 40 MG Warfarin Sodium (Coumadin Tab) 15 mg DAILY@1600 PO 08/07/17 01:30 09/06/17 01:29 08/07/17 15:57 15 MG Lidocaine (Lidoderm Patch 5%) 1 patch QAM PRN TD 08/07/17 02:15 09/06/17 02:14 08/07/17 08:49 1 PATCH Miscellaneous (Remove Lidoderm Patch) 1 ea Q12H PRN N/A 08/07/17 02:30 09/06/17 02:29 Review of Systems Denies any recent history of fever, night sweats, unexplained weight loss, or constitutional symptoms. Otherwise, 8 point review of system has been reported to be negative. Physical Exam Height & Weight: Height 6 feet, 0.00 inches. Weight 135.200 (Kilograms) 298 (Pounds) Last Vital Signs Documentation Date Time Temp Pulse Resp B/P (MAP) Pulse Ox O2 Delivery O2 Flow Rate FiO2 08/08/17 07:06 36.4 53 18 106/62 (77) 97 Room Air Exam: Mr. Fong is alert and oriented. Mood and affect are appropriate. Short-term and long-term memory is intact. Sensorium is clear. His BMI is 40.4 kg to be square. He appears comfortable in supine position but when he attempts to sit up, he experiences axial low back pain. Inspection his lumbar spine demonstrated loss lumbar lordosis. He has 3, 2x2 cm , symmetrical ecchymotic areas in the paraspinous region of his lumbar spine bilaterally. He has diffuse myofascial tenderness of the lumbar spine. Provocative testing the facet joints is unremarkable. Provocative testing of the SI joints is unremarkable. Neurologically, straight leg raising is negative bilaterally. He has intact sensation and symmetrical motor strength in the lower extremities without deficits. No pathologic reflexes are noted. Laboratory Laboratory Results (Last CBC): 08/06/17 18:25 Red Blood Count 4.54 L, Mean Corpuscular Volume 89.2, Mean Corpuscular Hemoglobin 29.7, Mean Corpuscular Hemoglobin Concent 33.3, Mean Platelet Volume 10.8 H, Neutrophils (%) (Auto) 50.0, Lymphocytes (%) (Auto) 35.7, Monocytes (%) (Auto) 11.5, Eosinophils (%) (Auto) 2.2, Basophils (%) (Auto) 0.4, Neutrophils # (Auto) 2.73, Lymphocytes # (Auto) 1.95, Monocytes # (Auto) 0.63 H, Eosinophils # (Auto) 0.12, Basophils # (Auto) 0.02 Imaging MRI: no results to review MRI Findings Images or report is not available to review at the present time. [place] Drug Monitoring Program Search Results: patient reviewed within database, no issues identified Opioid Risk Assessment Risk assessment performed, minimal risk identified Assessment 1. Degenerative disc disease lumbar spine. 2. Myofascial pain distal lumbar spine. 3. Chronic anticoagulant and antiplatelet therapy use. Recommendations 1. Interventional therapy is not indicated at the present time as patient cannot stop his anticoagulant and antiplatelet therapies. 2. Recommend trial of Tapentadol 50 mg by mouth every 6 hours when necessary for symptomatic relief for acute exacerbation. 3. Recommend discontinuation of gabapentin and trial of pregabalin. If duloxetine was efficacious, recommend resumption as an outpatient. 4. Patient can follow up as an outpatient with his previous pain management providers as needed. ]
== END 2017-08-08 14:05 | disposition home or self-care (01) ==
LOC: C.EDB 19:00 → C.MED 23:32 → ENRESERV 23:56
PROVIDERS: ADMIT Hospitalist; ATTEND Hospitalist
DX: R07.89 Other chest pain (principal); R42 Dizziness and giddiness; R06.02 Shortness of breath; I10 Essential (primary) hypertension; M51.36 Other intervertebral disc degeneration, lumbar region; E78.5 Hyperlipidemia, unspecified; I44.7 Left bundle-branch block, unspecified; Z79.01 Long term (current) use of anticoagulants; Z95.2 Presence of prosthetic heart valve; Z90.49 Acquired absence of other specified parts of digestive tract; Z83.3 Family history of diabetes mellitus; Z82.49 Family history of ischemic heart disease and other diseases of the circulatory system

== ENCOUNTER 2018-01-14 01:01 | Emergency (ER) | payer OTHER ==
[~2018-01-14] VITALS: Ht 182.9 cm; Wt 140.9 kg
[~2018-01-14 01:01] MED LIST changes: +BUPR100T8 PO; -DULO-24 PO; +LDDP5 TD; +NCY50 PO
[2018-01-14 01:04] VITALS: TEMP 36.7; Ht 182.9 cm; Wt 140.9 kg
[2018-01-14] MEDS ORDERED: MoRPHine SULFATE 4 MG/ML 1 ML CARP\\VIAL IV ONE (01:15)
[2018-01-14 01:30] LABS: BASO % 0.2 %; BASO ABS # 0.01 K/uL (0-0.2); EOS % 1.3 %; EOS ABS # 0.07 K/uL (0-0.5); HEMATOCRIT 41.7 % (42-52); HEMOGLOBIN 14.6 g/dL (14.0-18.0); IG# 0.01 K/uL (0.00-0.02); LYMPH % 33.4 %; LYMPH ABS # 1.84 K/uL (1.2-3.4); MEAN CELL VOLUME 88.9 fL (80-100); MEAN CORPUSCULAR HEMOGLOBIN 31.1 pg (25-34); MEAN PLATELET VOLUME 9.7 fL (7.4-10.4); MONO ABS # 0.44 K/uL (0.11-0.59); NEUT % 56.9 %; NEUT ABS # 3.14 K/uL (1.4-6.5); PLATELET COUNT 181 K/uL (130-400); RED CELL DISTRIBUTION WIDTH CV 12.9 % (11.5-14.5); RED CELL DISTRIBUTION WIDTH SD 41.6 fL (36.4-46.3); WHITE BLOOD COUNT 5.51 K/uL (4.8-10.8)
[2018-01-14] MEDS ORDERED: OPTIRAY 320 IV PRN (01:30)
[2018-01-14 01:36] VITALS: O2SAT 96
[2018-01-14 01:36] LABS: ISTAT CREATININE 0.9 mg/dl (0.6-1.3); ISTAT IONIZED CALCIUM 1.16 mmol/l (1.12-1.32); ISTAT POTASSIUM 3.5 mEq/L (3.3-5.0)
[2018-01-14 01:40] LABS: PTT PATIENT 32.9 SECONDS (21.0-31.0)
[2018-01-14 01:55] LABS: ALBUMIN 4.2 gm/dl (3.4-5.0); CALCIUM 9.2 mg/dl (8.5-10.1); CREATININE 0.93 mg/dl (0.60-1.40); POTASSIUM 3.5 mmol/L (3.5-5.1)
[2018-01-14 01:58] LABS: TOTAL PROTEIN 8.2 gm/dl (6.4-8.2)
[2018-01-14] MEDS ORDERED: DULO-24 PO (03:06)
[2018-01-14] MEDS ORDERED: HYDR-5688 PO (03:07)
[2018-01-14] MEDS ORDERED: ACETAMINOPHEN 325 MG TAB PO ONE (04:31)
[2018-01-14] MEDS ORDERED: ACETAMINOPHEN 325 MG TAB ONE (04:33)
[2018-01-14] MEDS ORDERED: WARFARIN SOD 5 MG TAB PO ONE (04:45)
[2018-01-14] MEDS ORDERED: LOSARTAN POTASSIUM 50 MG TAB PO ONE (04:45)
[2018-01-14] MEDS ORDERED: ACETAMINOPHEN 325 MG TAB PO PRN (04:45)
[2018-01-14 04:46] VITALS: BP 144/71; PULSE 65; O2SAT 99
--- NOTE | 2018-01-14 05:32 | INTERNAL MEDICINE CONSULTATION ---
DATE OF CONSULTATION: 01/14/2018 Patient seen at the request of Dr. Justine Morton and Mr. Bishop Guzman PA-C for evaluation of chest pain. HISTORY OF PRESENT ILLNESS: History obtained from patient and records. Medical history significant for congenital bicuspid aortic valve, ascending aortic dissection status post surgery, mechanical AVR on Coumadin, chronic LBBB, hypertension, hyperlipidemia, past tobacco abuse. Recent confinement last August 2017 for atypical chest pain. A 2D echo showed LVH, EF of 60-65%, postop state. Patient discharged on lidocaine patch, narcotics. Subsequently switched to neuropathic agents outpatient. 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 At home, the patient had upper achy chest pain going to his back and belly not as bad as his aortic dissection pain, achy headache symptoms as well. Blood pressure noted to be high at home, SBP 180s. Slow improvement despite extra Toprol medication taken at home. Patient brought to the ER. Received morphine, symptoms improved. MEDICAL HISTORY: As above. SURGERIES: Aortic valve replacement, cholecystectomy, hypospadias surgery, aorta surgery, aortic valve replacement surgery with coronary reimplantation, left subclavian bypass HOME MEDICATIONS: Include Cozaar, metoprolol, potassium chloride, Protonix, Coumadin, Lipitor, Norvasc, bupropion, Wellbutrin, Plavix, furosemide p.r.n. ALLERGIES: No known drug allergies. FAMILY HISTORY: Heart disease. PERSONAL AND SOCIAL HISTORY: Past tobacco use. No chronic intake of alcoholic beverages. 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 REVIEW OF SYSTEMS: As per HPI, all 10 systems reviewed. All other ROS negative. PHYSICAL EXAMINATION: VITAL SIGNS: Blood pressure was noted to be 161/87, later 140/80, pulse rate 64, RR 18, temperature 36.7, sats 93 on room air. GENERAL: Noted to be slightly anxious, obese. No respiratory distress. SKIN: Normal color, warm. HEENT: [place] palpebral conjunctivae. No ptosis. Dry mucosa. NECK: Short, nontender. CHEST: Clear to auscultation. No chest wall tenderness. Healed incisional scar. ABDOMEN: Some distention, nontender. EXTREMITIES: No edema noted. No tenderness. No gross deformity. NEUROLOGIC: Coherent. No gross focality. LABORATORY DATA: Hemoglobin was noted to be 14.6, hematocrit 41.7, white cell count 10, platelets noted to be 181. Sodium 140, potassium 3.5, chloride 106, CO2 28, BUN 15, creatinine 0.9, glucose was noted to be 90. INR was noted to be 2. Troponin for [address] head initial read no acute pathology. CT chest, CT abdomen and pelvis initial read, status post valve repair and repair aortic dissection, persistent dissection flap seen in the posterior arch extending to the descending thoracic aorta and abdominal aorta partial into right pulmonary artery which is unchanged from previous study, normalization of flow between false and true lumen, patent celiac artery; small dissection flap left subclavian artery which is unchanged, no evidence of aneurysm. No definite fluid fat stranding, cholecystectomy, no hydronephrosis. EKG as per my interpretation chronic left bundle branch block ASSESSMENT: Atypical chest pain, headache possibly from hypertensive urgency. hx aortic dissection status post surgery hx mechanical AVR on Coumadin, INR tx improved symptoms and BP control since arrival to the ER RECOMMENDATIONS: Patient given option of observation in the hospital versus going home. Patient chose the latter. Patient advised to limit exertion at work for now continue home anti-hypertensive meds Follow-up appointment with PCP this week. Patient counselled to return to ER for recurrent chest pain, shortness of breath , headache symptoms and uncontrolled blood pressure. Patient was expressed understanding and was amenable to the plan of care. Thank you very much for this consultation. MARIPOSA
--- NOTE | 2018-01-14 06:35 | DIAGNOSTIC IMAGING REPORT ---
HEAD WITHOUT CONTRAST (CT) CLINICAL HISTORY: 32 years-old Male with wall. Acute headache TECHNIQUE: Multiple axial CT images of the head were obtained without contrast. A dose lowering technique was utilized adhering to the principles of ALARA. CT DOSE: 537.48 mGy.cm COMPARISON: None available. FINDINGS: No acute intracranial hemorrhage, midline shift, intracranial mass, hydrocephalus, territorial ischemia or abnormal extra-axial collection. The calvarium is intact. The paranasal sinuses, mastoid air cells, and middle ear cavities are clear. IMPRESSION: No acute intracranial abnormality. The above report was generated using voice recognition software. It may contain grammatical, syntax or spelling errors. Electronically signed by: Rashad Delgado M.D. 01/14/2018 6:34 AM Dictated Date/Time: 01/14/2018 6:33 AM
--- NOTE | 2018-01-14 06:43 | EMERGENCY ROOM VISIT NOTE ---
History First contact with patient: :07 Chief Complaint: CHEST PAIN Stated Complaint: CHEST PAIN, BACK PAIN, HEADACHE, CHILLS Nursing Triage Summary: patient c/o increased chest pain to center of chest going to right shoulder that began prior to arrival along with " terrible headache" . patient states he took metoprolol for high bp prior to arrival as directed by his pcp. patient has hx of aortic aneurysms and a dissection years ago . patient also has mechanical valve. History of Present Illness The patient is a 32 year old male who presents to the Emergency Room with complaints of left-sided chest pain radiating into his neck and head that began about 5 or 6 hours ago. The patient has an extensive history of aortic dissection with multiple surgical intervention and repair. He states that his blood pressure was elevated earlier, and he took an extra dose of his metoprolol to help lower this. He did not take anything for pain. He is on Plavix and Coumadin. The patient is not complaining of abdominal pain or back pain. He rates his overall discomfort an 8/10. Review of Systems More than 10 systems were reviewed and otherwise negative with the exception of history of present illness. Past Medical/Surgical History Medical Problems: (1) Amaurosis fugax of right eye (2) Asthma (3) DVT (deep venous thrombosis) (4) Heart failure (5) History of aortic dissection (6) HLD (hyperlipidemia) (7) hypospadias surgery Surgical Problems: (1) H/O exploratory laparotomy (2) H/O mechanical aortic valve replacement (3) History of ERCP (4) Pericardial Window (5) S/P AAA repair (6) S/P cholecystectomy (7) S/P ERCP Family History Diabetes mellitus FHx: heart disease Hypertension Social History Smoking Status: Never Smoker Alcohol Use: occasionally Drug Use: none Marital Status: single Housing Status: lives with family Occupation Status: employed Current/Historical Medications Scheduled Amlodipine (Norvasc), 5 MG PO DAILY Atorvastatin (Lipitor), 20 MG PO DAILY Clopidogrel Bisulfate (Clopidogrel), 75 MG PO DAILY Duloxetine HCl (Cymbalta), 20 MG PO BID Losartan Potassium (Cozaar), 100 MG PO DAILY Metoprolol Succinate (Metoprolol Succinate ER), 50 MG PO HS Metoprolol Succinate (Metoprolol Succinate ER), 75 MG PO QAM Pantoprazole (Protonix), 40 MG PO DAILY Warfarin Sodium (Warfarin Sodium), 15 MG PO DAILY Scheduled PRN Furosemide (Furosemide), 40 MG PO DAILY PRN for fluid Hydrocodone/Acetaminophen 5MG/325MG ([place] 5MG/325MG), 1 TAB PO BID PRN for Pain Potassium Chloride (Potassium Chloride Er), 10 MEQ PO UD PRN for with lasix Physical Exam Vital Signs Date Time Temp Pulse Resp B/P (MAP) Pulse Ox O2 Delivery O2 Flow Rate FiO2 01/14/18 04:46 65 16 144/71 99 01/14/18 04:10 61 16 119/70 99 Room Air 01/14/18 02:51 64 18 142/75 96 Room Air 01/14/18 01:58 71 20 161/87 98 Room Air 01/14/18 01:36 96 Room Air 01/14/18 01:22 98 Room Air 01/14/18 01:16 70 01/14/18 01:04 36.7 78 18 165/76 98 Room Air Physical Exam VITALS: Vitals are noted on the nurse's note and reviewed by myself. Vital signs stable. GENERAL: Well-developed, well-nourished, white male who is clutching the left side of his chest with his right hand. NECK: Supple without nuchal rigidity. No lymphadenopathy. No thyromegaly. Cervical spine is nontender. HEART: Regular rate and rhythm with diffuse murmur and click consistent with prosthetic valve LUNGS: Clear to auscultation bilaterally without wheezes, rales or rhonchi. No retractions or accessory muscle use. ABDOMEN: Positive normal bowel sounds x 4. Soft, nontender, without masses or organomegaly. No guarding or rebound tenderness. NEURO: Patient was alert and oriented to person place and time. CN II through XII grossly intact. Medical Decision & Procedures ER Provider Diagnostic Interpretation: Preliminary Findings Only See Final Report For Complete Findings CTA ABDOMEN & PELVIS With Contrast: Status post valve repair status post repair of type A dissection. Persistent dissection flap is seen at the posterior aortic arch extending into the descending thoracic aorta, and abdominal aorta and partially into the right common iliac artery which is unchanged from previous study. There is normalization of flow between the false and true lumens. The celiac artery SMA, SHANT, bilateral renal arteries and iliac arteries are patent. There is a small dissection flap extending into the left subclavian artery which is unchanged. No evidence of aneurysm. No acute airspace opacities, pleural effusion or pneumothorax. There is a right sided Spigelian hernia, inferior to the liver, containing a loop of nondilated right colon/hepatic flexure and fat. No definite fluid or fat stranding is seen within the hernia to suggest strangulation. No bowel obstruction. Normal appendix. Status post cholecystectomy. No biliary dilatation. Tiny non-shadowing stone measuring 1 mm in the upper left kidney. No hydronephrosis. Laboratory Results 01/14/18 01:16 Red Blood Count 4.69, Mean Corpuscular Volume 88.9, Mean Corpuscular Hemoglobin 31.1, Mean Corpuscular Hemoglobin Concent 35.0, Mean Platelet Volume 9.7, Neutrophils (%) (Auto) 56.9, Lymphocytes (%) (Auto) 33.4, Monocytes (%) (Auto) 8.0, Eosinophils (%) (Auto) 1.3, Basophils (%) (Auto) 0.2, Neutrophils # (Auto) 3.14, Lymphocytes # (Auto) 1.84, Monocytes # (Auto) 0.44, Eosinophils # (Auto) 0.07, Basophils # (Auto) 0.01 01/14/18 01:16 Test 01/14/18 01:16 01/14/18 01:21 01/14/18 01:22 01/14/18 03:10 White Blood Count 5.51 K/uL (4.8-10.8) Red Blood Count 4.69 M/uL (4.7-6.1) Hemoglobin 14.6 g/dL (14.0-18.0) Hematocrit 41.7 % (42-52) Mean Corpuscular Volume 88.9 fL (80-100) Mean Corpuscular Hemoglobin 31.1 pg (25-34) Mean Corpuscular Hemoglobin Concent 35.0 g/dl (32-36) Platelet Count 181 K/uL (130-400) Mean Platelet Volume 9.7 fL (7.4-10.4) Neutrophils (%) (Auto) 56.9 % Lymphocytes (%) (Auto) 33.4 % Monocytes (%) (Auto) 8.0 % Eosinophils (%) (Auto) 1.3 % Basophils (%) (Auto) 0.2 % Neutrophils # (Auto) 3.14 K/uL (1.4-6.5) Lymphocytes # (Auto) 1.84 K/uL (1.2-3.4) Monocytes # (Auto) 0.44 K/uL (0.11-0.59) Eosinophils # (Auto) 0.07 K/uL (0-0.5) Basophils # (Auto) 0.01 K/uL (0-0.2) RDW Standard Deviation 41.6 fL (36.4-46.3) RDW Coefficient of Variation 12.9 % (11.5-14.5) Immature Granulocyte % (Auto) 0.2 % Immature Granulocyte # (Auto) 0.01 K/uL (0.00-0.02) Prothrombin Time 20.3 SECONDS (9.0-12.0) Prothromb Time International Ratio 2.0 (0.9-1.1) Activated Partial Thromboplast Time 32.9 SECONDS (21.0-31.0) Partial Thromboplastin Ratio 1.3 Est Creatinine Clear Calc Drug Dose 167.6 ml/min Estimated GFR () 126.3 Estimated GFR (Non- 109.0 BUN/Creatinine Ratio 16.0 (10-20) Calcium Level 9.2 mg/dl (8.5-10.1) Total Bilirubin 1.0 mg/dl (0.2-1) Aspartate Amino Transf (AST/SGOT) 44 U/L (15-37) Alanine Aminotransferase (ALT/SGPT) 61 U/L (12-78) Alkaline Phosphatase 88 U/L (45-117) Total Protein 8.2 gm/dl (6.4-8.2) Albumin 4.2 gm/dl (3.4-5.0) Globulin 4.0 gm/dl (2.5-4.0) Albumin/Globulin Ratio 1.1 (0.9-2) Lipase 123 U/L (73-393) Bedside Hemoglobin 13.9 g/dl (14.0-18.0) Bedside Hematocrit 41 % (42-52) Bedside Sodium 142 mEq/L (135-144) Bedside Potassium 3.5 mEq/L (3.3-5.0) Bedside Chloride 103 mEq/L (101-112) Bedside Total CO2 28 mEq/l (24-31) Anion Gap 16.0 mmol/L (16-25) Bedside Blood Urea Nitrogen 16 mg/dl (7-18) Bedside Creatinine 0.9 mg/dl (0.6-1.3) Bedside Glucose (other) 92 mg/dl (70-99) Bedside Ionized Calcium (Jose) 1.16 mmol/l (1.12-1.32) Bedside Troponin I < 0.030 ng/ml (0-0.045) Troponin I < 0.015 ng/ml (0-0.045) Medications Administered Medications (Trade) Dose Ordered Sig/Kathy Route Start Time Stop Time Status Last Admin Dose Admin Morphine Sulfate (MoRPHine SULFATE INJ) 4 mg NOW ONCE IV 01/14/18 01:15 01/14/18 01:16 DC 01/14/18 01:15 4 MG Losartan Potassium (coZAAR TAB) 100 mg NOW ONCE PO 01/14/18 04:45 01/14/18 04:46 DC 01/14/18 04:37 100 MG Warfarin Sodium (Coumadin Tab) 15 mg NOW ONCE PO 01/14/18 04:45 01/14/18 04:46 DC 01/14/18 04:37 15 MG Acetaminophen (Tylenol Tab) 650 mg STK-MED ONCE .ROUTE 01/14/18 04:33 01/14/18 04:34 DC 01/14/18 04:36 650 MG ED Course Physical exam and history were performed. Nursing notes, EMR, and Medication List were personally reviewed. Patient appears to have left-sided chest pain with diffuse history of aortic dissection with repair in the past. The patient is clutching the left side of his chest on examination. IV access was established 2. Labs were obtained. The patient was medicated as above and sent immediately to CT scan for dissection study. The patient's blood work is as above and was reviewed. He does not have a significant elevated white blood cell count, gross anemia, bandemia, or significant electrolyte imbalance. Lipase and transaminases are not diagnostic. Troponin 1 is negative. EKG was normal sinus rhythm at [address] elevation or evidence of ischemia. EKG was essentially unchanged from EKG of August 08, 2017. CT angiogram does not show new or acute findings when compared to old. On reevaluation the patient had improvement but not complete resolution of his discomfort. Because of his symptoms and history I did [facility] the [facility] to [facility] the patient here in the department. Please see their dictation for further patient course, plan, and disposition. The chart was completed utilizing [employer] Speech Voice Recognition Software. Grammatical errors, random word insertions, pronoun errors, and incomplete sentences are an occasional consequence of this system due to software limitations, ambient noise, and hardware issues. Any formal questions or concerns about the content, text, or information contained within the body of this dictation should be directly addressed to the provider for clarification. . Medical Decision Differential diagnosis includes, but is not limited to: Myocardial infarction, dysrhythmia, pericarditis, pneumothorax, aortic aneurysm/dissection, DVT/PE, anxiety, GERD, PUD, electrolyte imbalance, thyroid disorder, pneumonia, bronchitis, pancreatitis, and others Impression Primary Impression: Left sided chest pain Departure Information Dispostion Home / Self-Care Condition FAIR Referrals Brian Guido M.D. (PCP) Forms Call Back Authorization, HOME CARE DOCUMENTATION FORM, IMPORTANT VISIT INFORMATION Patient Instructions [facility]
--- NOTE | 2018-01-14 06:46 | DIAGNOSTIC IMAGING REPORT ---
ANGIO ABD/PELVIS COMBO CLINICAL HISTORY: H/O DISSECTION pain. Dissection. TECHNIQUE: Transaxial acquisition pre and post contrast administration. Multi axial reformatted image evaluation. COMPARISON STUDY: 08/06/2017 FINDINGS: Stable dissection flap of the descending thoracic and abdominal aorta. All major arterial structures of the abdomen and pelvis including superior mesenteric artery, inferior mesenteric, as well as bilateral renal arteries and iliac arteries are patent. The dissection flap extends to the proximal right iliac artery. Liver spleen and pancreas are grossly unremarkable. Prior cholecystectomy. Stable mild biliary ductal prominence. Right-sided spigelian hernia containing mesenteric fat. This is unchanged in the prior study. Short segment of the right hepatic colonic flexure is present with no evidence for obstructive change. Bowel pattern otherwise completely unremarkable. Bladder is midline. IMPRESSION: 1. Stable dissection of the abdominal aorta extending to the proximal right iliac artery. 2. All arterial structures the abdomen other than that described remain unremarkable. 3. Right lateral hernia containing a short segment of hepatic flexure which is nonobstructing. 4. No change compared to the prior study. The above report was generated using voice recognition software. It may contain grammatical, syntax or spelling errors. Electronically signed by: Clarence Hernandez M.D. 01/14/2018 6:45 AM Dictated Date/Time: 01/14/2018 6:40 AM
--- NOTE | 2018-01-14 07:22 | DIAGNOSTIC IMAGING REPORT ---
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 Status post repair of aortic aneurysm COMPARISON: CTA of the chest 08/06/2017 TECHNIQUE: CTA of the chest was obtained both with and without the use of 91 mL Optiray 320 IV contrast. 3-D coronal and sagittal MIPS were obtained from the axial data set and were submitted for review. All measurements were obtained according to NASCET criteria. A dose lowering technique was used consistent with the principals of MANDIE. FINDINGS: CTA CHEST: The noncontrast scan demonstrates no evidence of intramural hematoma. Heart is upper limits of normal in size. Prior median sternotomy with prosthetic aortic valve. Postoperative changes of the aortic arch redemonstrated. Dissection of the thoracic aorta redemonstrated with dissection flap involving the descending thoracic aorta on image 120 series 7 and aortic arch extending into the left subclavian artery nicely seen on image 43 of series 7, unchanged and also extending into the descending thoracic aorta and abdominal aorta as discussed on CTA abdomen and pelvis of same day. There is normal flow within the true and false lumens. No aneurysm. The pulmonary arterial tree is not well opacified. CT CHEST: No dominant thyroid nodule. No pathologic adenopathy of the chest. There is no pneumothorax, pleural effusion or focal airspace consolidation. Calcified granuloma of the lateral basal segment left lower lobe, 4 mm. No suspicious pulmonary nodules or masses. 4 mm pericardial lymph node seen adjacent to the superior segment right lower lobe. Central airways are patent. No acute amount the of the imaged upper abdomen. Prior cholecystectomy. Right-sided spigelian hernia. Soft tissues and bones of the thorax are unremarkable. Please see separately dictated CTA abdomen and pelvis. IMPRESSION: 1. Unchanged appearance of the Marcello type A dissection which involves the ascending and descending thoracic aorta and imaged upper abdominal aorta extending into the proximal left subclavian artery. 2. Prior median sternotomy with placement of a prosthetic aortic valve and postsurgical changes of the ascending thoracic aorta. 3. No acute intrathoracic abnormality. 4. No focal airspace consolidation or pathologic adenopathy. The above report was generated using voice recognition software. It may contain grammatical, syntax or spelling errors. Electronically signed by: Rashad Delgado M.D. 01/14/2018 7:20 AM Dictated Date/Time: 01/14/2018 7:10 AM
== END 2018-01-14 04:47 | disposition home or self-care (01) ==
LOC: C.EDB 01:02 → C.EDA 04:47
DX: R07.9 Chest pain, unspecified (principal); G45.3 Amaurosis fugax; J45.909 Unspecified asthma, uncomplicated; I50.9 Heart failure, unspecified; E78.5 Hyperlipidemia, unspecified; Z86.79 Personal history of other diseases of the circulatory system; Z86.718 Personal history of other venous thrombosis and embolism; Z79.01 Long term (current) use of anticoagulants; Z95.2 Presence of prosthetic heart valve; Z90.49 Acquired absence of other specified parts of digestive tract; Z83.3 Family history of diabetes mellitus; Z82.49 Family history of ischemic heart disease and other diseases of the circulatory system

== ENCOUNTER 2019-12-28 18:48 | Inpatient (IN) ==
[2019-12-28] MEDS ORDERED: HYDROmorphone INJ 0.5 MG/0.5 ML SYR IV STA ×3 (19:36→23:26)
[2019-12-28] MEDS ORDERED: ONDANSETRON INJ 2 MG/ML 2 ML VIAL IV STA (19:36)
--- NOTE | 2019-12-28 19:49 | Emergency Department Note ---
History of Present Illness General Chief complaint: Chest Pain Stated complaint: CHEST AND ABDOMINAL PAIN Time Seen by Provider: 12/28/19 19:27 Source: patient Limitations: no limitations History of Present Illness Provider complaint: Right flank pain Onset (ago): hour(s) (Intermittent this morning but constant since approximately 5 PM) Location: abdomen (Right flank) Radiation: back (Radiation to back and abdomen) Severity: severe Pain Consistency: + constant Maximum Pain Intensity: 9 Quality: + stabbing Relieved By: + none Associated symptoms: + chest pain (Chest tightness which he states he frequently gets when he is stressed or in pain.) and + nausea/vomiting (Nausea no vomiting); no shortness of breath Treatments prior to arrival: none This is a 34-year-old male with a history of chronic aortic dissection and aortic valve replacement. He is presenting with right-sided flank pain starting earlier today and getting worse this afternoon. He describes it as sharp and severe. He states it is worse than when he had kidney stones. He states it is not similar to the pain he had when he was here earlier this month which was located in his back. No alleviating factors. It is associated with nausea and without vomiting. He denies shortness of breath or fevers. He has no urinary complaints or hematuria. He has had normal bowel movements. He is on Coumadin for prior aortic valve replacement. He also has chest discomfort which he d escribes as different from the pain he has in his right flank. He states that he gets chest tightness whenever he is in significant discomfort or stressed. He has had this type of pain for years and this is not new for him. He came in because of the right flank pain and feels that the chest tightness is a consequence of that pain. Home Medications Home Medications Medication Instructions Recorded Confirmed Type acetaminophen [Tylenol Extra 1,000 mg PO Q6H PRN 11/12/18 12/28/19 History Strength] amlodipine 5 mg PO BID 11/12/18 12/28/19 History clopidogrel 75 mg PO QAM 11/12/18 12/28/19 History duloxetine 60 mg PO QAM 11/12/18 12/28/19 History losartan 100 mg PO QAM 11/12/18 12/28/19 History metoprolol succinate 100 mg PO QPM 11/12/18 12/28/19 History warfarin 15 mg PO DAILY 12/06/19 12/28/19 History furosemide [Lasix] 40 mg PO Q OTHER DAY PRN 12/28/19 12/28/19 History potassium chloride 20 meq PO UD 12/28/19 12/28/19 History Allergies Allergy/AdvReac Type Severity Reaction Status Date / Time No Known Allergies Allergy Verified 12/28/19 20:04 Past Med/Surg History Medical History Amaurosis fugax of right eye (Chronic) Anticoagulated on Coumadin (Acute) Anxiety (Chronic) Aortic dissection (Acute) Per Clarence Hernandez PA-C progress note from 04/08/18 " Type 1 aortic dissection, 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 3.Status post emergent aortic valve and root replacement with [employer] mechanical valve and conduit size 27 along with coronary reimplantation. 4.Post discharge course complicated by cardiac tamponade requiring left thoracotomy, pericardial window on 07/29/14. 5.Patient status post 05/29/2015 redo sternotomy, left carotid subclavian bypass, right axillary cannulation with an 8 mm graft, arch replacement with a 30 mm branched Dacron graft, ligation of left subclavian artery, arch debranching with individual anastomoses to the right subclavian, right carotid, and left carotid arteries." Chronic systolic (congestive) heart failure (Chronic) Congenital bicuspid aortic valve DDD (degenerative disc disease), lumbar (Chronic) HLD (hyperlipidemia) (Chronic) HTN (hypertension) (Chronic) Surgical History H/O exploratory laparotomy (Chronic) H/O mechanical aortic valve replacement (Chronic) s/p [facility] valve and conduit size 27 along with coronary reimplantation 07/2014 History of ERCP (Chronic) S/P AAA repair (Chronic) "07/15/2014 REPAIR AORTA WITH CARDIOPULMONARY BYPASS performed by Timbo Heredia MD at [facility] Persistent aortic dissection with resultant repeat surgery on 05/27/2015 for arch repair." S/P cholecystectomy (Chronic) S/P ERCP (Resolved 06/08/14) Family History Mother Alive and well Father Alive and well Grandfather (Maternal) Coronary heart disease T2DM (type 2 diabetes mellitus) Grandmother (Maternal) T2DM (type 2 diabetes mellitus) Coronary heart disease Other No family history of kidney disease Social History Preferred Language: Swedish Communication Ability: Effective Steel Erector Required: No Beliefs That Will Affect Care: None Current Living Situation: Parent Current Living Situation Comment: Lives with father Feels Safe at Home: Yes Smoking Status: Never smoker Cigarettes Per Day: 1 ; Second Hand Exposure: No ; Hx Alcohol Use: Yes Hx Substance Use: No Review of Systems See HPI for pertinent positives & negatives. and A total of 10 systems reviewed and were otherwise negative Physical Exam Vital Signs Vital Signs - 24 hr 12/28/19 19:01 12/28/19 20:36 12/28/19 21:18 Temperature 37.5 C Temperature Source Oral Pulse Rate 84 Pulse Rate [Left Finger] 88 85 Respiratory Rate 24 18 Blood Pressure 173/84 H Blood Pressure [Right Arm] 166/78 H 141/75 H Blood Pressure Mean 113 Blood Pressure Mean [Right Arm] 107 97 Blood Pressure Position [Right Arm] Sitting Pulse Oximetry 98 96 97 Oxygen Delivery Method Room Air Room Air Room Air Sepsis Recent Fever Within 48 Hours No Sepsis New/Unexplained Change in Mental Status No Sepsis Action Taken by Nursing No Action Required 12/28/19 23:13 Temperature Temperature Source Pulse Rate Pulse Rate [Left Finger] 89 Respiratory Rate 17 Blood Pressure Blood Pressure [Right Arm] 148/70 H Blood Pressure Mean Blood Pressure Mean [Right Arm] 96 Blood Pressure Position [Right Arm] Pulse Oximetry 95 Oxygen Delivery Method Room Air Sepsis Recent Fever Within 48 Hours Sepsis New/Unexplained Change in Mental Status Sepsis Action Taken by Nursing Constitutional: Vital signs reviewed. Eyes: Pupils are equal round reactive to light. Conjunctiva are noninjected. ENT: Pharynx is clear without erythema or exudate. Mucous membranes are moist. Neck supple without meningeal signs. Respiratory: Clear to auscultation bilaterally. Breath sounds are equal bilaterally. Cardiovascular: Regular rate and rhythm. Audible mechanical valve. 2+ pulses radial and femoral pulses bilaterally GI: Soft, large mass in the right upper quadrant with tenderness diffusely. No guarding. Bowel sounds are present. Musculoskeletal: No peripheral edema. No lower extremity tenderness. No CVA tenderness. Integumentary: No cyanosis. or jaundice. Neurological: The patient is awake and alert. No focal deficits. Psychiatric: Normal affect. Not anxious appearing. Course Consultations Consultation #1: Dr. Phillip of surgery Time: 21:02 Consultation #2: Dr. smith of surgery at [facility] Time: 21:24 Consultation #3: Dr. Hernandez Time: 21:52 Administered Medications Discontinued Medications Hydromorphone HCl (Dilaudid) 0.5 mg IV NOW STA Stop: 12/28/19 19:37 Last Admin: 12/28/19 20:10 Dose: 0.5 mg Documented by: [id number] Hydromorphone HCl (Dilaudid) 0.5 mg IV NOW STA Stop: 12/28/19 21:13 Last Admin: 12/28/19 21:18 Dose: 0.5 mg Documented by: [id number] Hydromorphone HCl (Dilaudid) 0.5 mg IV NOW STA Stop: 12/28/19 23:27 Last Admin: 12/28/19 23:31 Dose: 0.5 mg Documented by: [id number] Ioversol (Optiray 320 125ml) 119 ml IV ONCE PRN PRN Reason: Interaction Checking Stop: 01/01/20 20:19 Last Admin: 12/28/19 20:20 Dose: 119 ml Documented by: [id number] Ondansetron HCl (Zofran) 4 mg IV NOW STA Stop: 12/28/19 19:37 Last Admin: 12/28/19 20:10 Dose: 4 mg Documented by: [id number] Medical Decision Making Differential Diagnosis Aortic dissection, aortic aneurysm, kidney stone, obstructive uropathy, choledocholithiasis, pancreatitis Medical Records Attestation: I reviewed the patient's medical records. I did perform a limited focused review of portions of the patient's old chart on the electronic medical record. The patient was seen here for back pain December 06. He had a CT angiogram of his chest and abdomen which showed a chronic type a dissection and aneurysmal dilatation of the abdominal aorta. Home Medications Current Medication List: was personally reviewed by me Laboratory Data Attestation: I reviewed the patient's lab results. Result diagrams: 12/28/19 20:00 12/28/19 20:00 Lab Results 02/25/20 02/25/20 02/25/20 Range/Units 20:00 20:00 20:00 WBC 6.83 (4.8-10.8) K/uL RBC 4.42 L (4.7-6.1) M/uL Hgb 13.2 L (14.0-18.0) g/dL Hct 39.4 L (42-52) % MCV 89.1 (80-100) fL MCH 29.9 (25-34) pg MCHC 33.5 (32-36) g/dL RDW Std Deviation 44.1 (36.4-46.3) fL RDW Coeff of Levon 13.5 (11.5-14.5) % Plt Count 217 (130-400) K/uL MPV 10.1 (7.4-10.4) fL Immature Gran % (Auto) 0.1 % Neut % (Auto) 74.2 % Lymph % (Auto) 17.3 % Villalba % (Auto) 6.6 % Eos % (Auto) 1.5 % Baso % (Auto) 0.3 % Immature Gran # (Auto) 0.01 (0.00-0.02) K/uL Neut # (Auto) 5.07 (1.4-6.5) K/uL Lymph # (Auto) 1.18 L (1.2-3.4) K/uL Villalba # (Auto) 0.45 (0.11-0.59) K/uL Eos # (Auto) 0.10 (0-0.5) K/uL Baso # (Auto) 0.02 (0-0.2) K/uL PT 28.2 H (9.0-12.0) Seconds INR 3.0 H (0.9-1.1) APTT 42.3 H (21.0-31.0) Seconds PTT Ratio 1.6 Sodium 138 (136-145) mmol/L Potassium 3.7 (3.5-5.1) mmol/L Chloride 107 (98-107) mmol/L Carbon Dioxide 25 (21-32) mmol/L Anion Gap 6.0 (3-11) BUN 21 H (7-18) mg/dl Creatinine 0.85 (0.6-1.4) mg/dl POC Creatinine (0.6-1.3) mg/dl Est Cr Clr Drug Dosing 197.5 ml/min Est GFR ( Amer) 132.7 Est GFR (Non-Af Amer) 114.5 BUN/Creatinine Ratio 24.9 H (10-20) Glucose 99 (70-99) mg/dl Calcium 9.1 (8.5-10.1) mg/dl Total Bilirubin 1.0 (0.2-1) mg/dl AST 85 H (15-37) U/L ALT 123 H (12-78) U/L Alkaline Phosphatase 82 (45-117) U/L Troponin I < 0.015 (0-0.045) ng/ml Total Protein 8.2 (6.4-8.2) gm/dl Albumin 4.1 (3.4-5.0) gm/dl Globulin 4.1 H (2.5-4.0) gm/dl Albumin/Globulin Ratio 1.0 (0.9-2) Lipase 67 L (73-393) U/L 12/28/19 Range/Units 20:12 WBC (4.8-10.8) K/uL RBC (4.7-6.1) M/uL Hgb (14.0-18.0) g/dL Hct (42-52) % MCV (80-100) fL MCH (25-34) pg MCHC (32-36) g/dL RDW Std Deviation (36.4-46.3) fL RDW Coeff of Levon (11.5-14.5) % Plt Count (130-400) K/uL MPV (7.4-10.4) fL Immature Gran % (Auto) % Neut % (Auto) % Lymph % (Auto) % Villalba % (Auto) % Eos % (Auto) % Baso % (Auto) % Immature Gran # (Auto) (0.00-0.02) K/uL Neut # (Auto) (1.4-6.5) K/uL Lymph # (Auto) (1.2-3.4) K/uL Villalba # (Auto) (0.11-0.59) K/uL Eos # (Auto) (0-0.5) K/uL Baso # (Auto) (0-0.2) K/uL PT (9.0-12.0) Seconds INR (0.9-1.1) APTT (21.0-31.0) Seconds PTT Ratio Sodium (136-145) mmol/L Potassium (3.5-5.1) mmol/L Chloride (98-107) mmol/L Carbon Dioxide (21-32) mmol/L Anion Gap (3-11) BUN (7-18) mg/dl Creatinine (0.6-1.4) mg/dl POC Creatinine 0.7 (0.6-1.3) mg/dl Est Cr Clr Drug Dosing ml/min Est GFR ( Amer) Est GFR (Non-Af Amer) BUN/Creatinine Ratio (10-20) Glucose (70-99) mg/dl Calcium (8.5-10.1) mg/dl Total Bilirubin (0.2-1) mg/dl AST (15-37) U/L ALT (12-78) U/L Alkaline Phosphatase (45-117) U/L Troponin I (0-0.045) ng/ml Total Protein (6.4-8.2) gm/dl Albumin (3.4-5.0) gm/dl Globulin (2.5-4.0) gm/dl Albumin/Globulin Ratio (0.9-2) Lipase (73-393) U/L Imaging Data Radiologist's Impression: CT angio abdomen pelvis w con CT DOSE: 3575.46 mGy.cm CLINICAL HISTORY: History of dissection. Chest and right flank pain. TECHNIQUE: CT angiography of the abdomen and pelvis was performed in a dynamic helical fashion during intravenous administration of 119 cc of Optiray 320. MIP images were acquired. A dose lowering technique was utilized adhering to the principles of ALARA. COMPARISON STUDY: December 06, 2019 FINDINGS: The visualized portions of lung bases are unremarkable. No hepatic or splenic masses are visualized. The gallbladder is surgically absent. No pancreatic masses are visualized. No adrenal masses are visualized. No renal masses are visualized. There is no hydronephrosis. There is no pathologic adenopathy. There are no abnormal pelvic masses. There are no transition zones to indicate bowel obstruction. There is no evidence of acute diverticulitis. There is no evidence of acute appendicitis. There is a persistent large right lateral abdominal wall hernia. This contains portions of colon. There is marked stretching of the arterial branches supplying the colon within the hernia sac. There is an abdominal aortic dissection, similar to the preceding study. There is flow within both the true and false lumen. The dissection extends into the right common iliac artery. The abdominal aorta measures 2.9 cm in maximal diamet er. IMPRESSION: 1. No change in the thoracic aortic dissection which extends into the abdominal aorta and into the right common iliac artery 2. No evidence of bowel obstruction. No evidence of free air 3. Large right lateral abdominal wall hernia containing the hepatic flexure. ACT 112: Negative or not required by law. Electronically signed by: Rodney Novak M.D. 12/28/2019 8:[address] ANGIOGRAPHY THE CHEST WITHOUT AND WITH CONTRAST CLINICAL HISTORY: Chest and right flank pain. History of dissection. COMPARISON STUDY: December 06, 2019 TECHNIQUE: Unenhanced images were obtained through the thorax. Following the IV administration of 119 mL of Optiray-320, CT angiography of the thorax was performed from the thoracic inlet to the lung bases. Images are reviewed in the axial, sagittal, and coronal planes. IV contrast was administered without complication. MIP images were acquired. A dose lowering technique was utilized adhering to the principles of ALARA. CT DOSE: FINDINGS: Thyroid: Imaged portions of the thyroid gland are normal in appearance. Thoracic aorta: Noncontrast images reveal no evidence of acute thoracic hematoma. Postcontrast images reveal evidence of a chronic dissection with repair of the ascending thoracic aorta and aortic valve replacement. The dissec tion flap extends into the left subclavian artery. The descending thoracic aorta measures 37 mm. A descending thoracic dissection flap is visualized. Pulmonary vasculature: The pulmonary trunk is normal in caliber. There are no central filling defects identified to suggest pulmonary embolus. Note that this examination was not protocoled for the evaluation of pulmonary emboli. HEART: There is an aortic valve replacement. There is no pericardial effusion. Lungs and pleural spaces: There are no pleural effusions. There is no focal pulmonary consolidation. Mediastinum: There is no evidence of pathologic mediastinal lymphadenopathy Su: There is no evidence of pathologic hilar lymphadenopathy Axilla: There is no is a pathologic axillary lymphadenopathy Upper abdomen: There is a dissection flap within the proximal abdominal aorta. Skeletal structures: There are no lytic or blastic osseous lesions. IMPRESSION: 1. No change from the preceding study 2. Evidence of a prior median sternotomy with prosthetic aortic valve and postsurgical changes involving the thoracic aorta 3. No change in the appearance of the type A thoracic aortic dissection which extends into the proximal left subclavian artery. 4. No acute intrathoracic findings ACT 112: Negative or not required by law. Electronically signed by: Rodney Novak M.D. 12/28/2019 8:44 PM ECG Data Attestation: I personally reviewed and interpreted this ECG as follows: Indication: + chest pain Rate (beats per minute): 81 Rhythm: + normal sinus ECG Intervals/blocks: + Left bundle branch block ECG ST segments: + ST elevation (No concordant ST elevations or evidence of scarbossa criteria for ischemia) ECG Findings: no PVCs Comparison ECG Date: from (November 12, 2018) Change: no significant change Blood Pressure Blood Pressure Findings: Elevated blood pressure Blood Pressure Disposition: Referred to patients primary care provider MDM Narrative I did evaluate the patient as noted above. The patient is presenting with severe right-sided flank pain. He has a known aortic dissection which is chronic and is on Coumadin for an AVR. He also complains of chest pain but states that this is a tightness that he gets when ever he is in pain or is stressed. He is agreeable to CT angiogram of the chest and abdomen given his prior history of aortic dissection. IV access was established. I did treat the patient with IV Dilaudid and Zofran. The patient was placed on a continuous electronic device monitor. Cardiac monitoring: Indication: Chest pain Rate and rhythm: Sinus rhythm with a rate in the 80s without dysrhythmia I did order and personally review the patient's 12-lead EKG as described above. He has an old left bundle branch block without acute ischemia. I did order and review the patient's blood work as noted in the electronic medical record. He has mild anemia otherwise CBC is unremarkable. Electrolytes are unremarkable. INR is 3. Troponin is negative. I did order a stat CT of the chest, abdomen and pelvis. I did review the images myself as well as the radiology report as described above. The patient has a chronic aortic dissection without any changes. He does have a large abdominal wall hernia on the right side containing the splenic flexure. I did talk to the radiologist about this. He stated that it is significant in size and there is no strangulation but he has market stretching of the vessels. I did discuss the test results with the patient. He has persistent pain in the right side over the hernia itself. I did consult Dr. Phillip of surgery. The surgeon did look at the CAT scan and felt the patient would be best served he was transferred to a tertiary care center given his multiple comorbidities and anticoagulated state. I did talk to the patient who is agreeable with transfer. I did contact [facility] and spoke to Dr. smith of surgery. He did accept the patient for transfer although he did not feel the patient required emergent surgery. I did obtain consent for transfer from the patient as well as filled out transfer orders. Unfortunately [facility] called back and stated they would not have a bed till tomorrow. The patient has persistent pain he was given 2 more additional doses of Dilaudid IV. He will be hospitalized here until a bed is available tomorrow. I did discuss the case with the hospitalist and complex case manager. Impression & Plan Intractable abdominal pain, Abdominal wall hernia, Chronic thoracic aortic dissection, Anticoagulated on warfarin, Chest pain Discharge Plan Visit Data *Final* Discharge Date/Time: 12/29/19 00:14 Chief Complaint: Chest Pain Stated Complaint: CHEST AND ABDOMINAL PAIN ED Provider: Lloyd Meraz Discharge Problem: Intractable abdominal pain, Abdominal wall hernia, Chronic thoracic aortic dissection, Anticoagulated on warfarin, Chest pain Patient Disposition: Admitted As Inpatient Discharge Instructions Interventions: ED Discharge Assessment Last Done: 12/29/19 00:14 Discharge Problem: Chest pain Qualifiers: Chest pain type: unspecified Qualified Code(s): R07.9 - Chest pain, unspecified
[2019-12-28 20:19] LABS: Basophils # (auto) 0.02 K/uL (0-0.2); Basophils % (auto) 0.3 %; Eosinophils % (auto) 1.5 %; Hematocrit (blood only) 39.4 % (42-52); Hemoglobin 13.2 g/dL (14.0-18.0); Immature Granulocytes # (auto) 0.01 K/uL (0.00-0.02); Immature Granulocytes % (auto) 0.1 %; Lymphocytes # (auto) 1.18 K/uL (1.2-3.4); Lymphocytes % (auto) 17.3 %; Mean Corpuscular Hemoglobin 29.9 pg (25-34); Mean Corpuscular Hgb Conc 33.5 g/dL (32-36); Mean Corpuscular Volume 89.1 fL (80-100); Mean Platelet Volume 10.1 fL (7.4-10.4); Monocytes # (auto) 0.45 K/uL (0.11-0.59); Monocytes % (auto) 6.6 %; Neutrophils # (auto) 5.07 K/uL (1.4-6.5); Neutrophils % (auto) 74.2 %; Platelet Count 217 K/uL (130-400); RDW Coefficient of Variation 13.5 % (11.5-14.5); RDW Standard Deviation 44.1 fL (36.4-46.3); Red Blood Count 4.42 M/uL (4.7-6.1); White Blood Count 6.83 K/uL (4.8-10.8)
[2019-12-28] MEDS ORDERED: OPTIRAY 320 125ml IV PRN (20:20)
[2019-12-28 20:41] LABS: Partial Thromboplastin Ratio 1.6; Partial Thromboplastin Time 42.3 Seconds (21.0-31.0); Prothrombin Time 28.2 Seconds (9.0-12.0)
[2019-12-28 20:43] LABS: Alanine Aminotransferase 123 U/L (12-78); Albumin Level 4.1 gm/dl (3.4-5.0); Aspartate Aminotransferase 85 U/L (15-37); BUN Creatinine Ratio 24.9 (10-20); Blood Urea Nitrogen 21 mg/dl (7-18); Calcium 9.1 mg/dl (8.5-10.1); Carbon Dioxide 25 mmol/L (21-32); Chloride 107 mmol/L (98-107); Creatinine Clr Calc Pharmacy 197.5 ml/min; Est GFR (African American) 132.7; Est GFR (Non-African American) 114.5; Glucose 99 mg/dl (70-99); Lipase 67 U/L (73-393); Potassium 3.7 mmol/L (3.5-5.1); Sodium 138 mmol/L (136-145)
--- NOTE | 2019-12-28 20:45 | CT Scan Report ---
CT ANGIOGRAPHY THE CHEST WITHOUT AND WITH CONTRAST CLINICAL HISTORY: Chest and right flank pain. History of dissection. COMPARISON STUDY: December 06, 2019 TECHNIQUE: Unenhanced images were obtained through the thorax. Following the IV administration of 119 mL of Optiray-320, CT angiography of the thorax was performed from the thoracic inlet to the lung ba ses. Images are reviewed in the axial, sagittal, and coronal planes. IV contrast was administered wit hout complication. MIP images were acquired. A dose lowering technique was utilized adhering to the p rinciples of ALA. CT DOSE: FINDINGS: Thyroid: Imaged portions of the thyroid gland are normal in appearance. Thoracic aorta: Noncontrast images reveal no evidence of acute thoracic hematoma. Postcontrast images reveal evidence of a chronic dissection with repair of the ascending thoracic aorta and aortic valve replacement. The dissection flap extends into the left subclavian artery. The descending thoracic ao rta measures 37 mm. A descending thoracic dissection flap is visualized. Pulmonary vasculature: The pulmonary trunk is normal in caliber. There are no central filling defects identified to suggest pulmonary embolus. Note that this examination was not protocoled for the evalu ation of pulmonary emboli. HEART: There is an aortic valve replacement. There is no pericardial effusion. Lungs and pleural spaces: There are no pleural effusions. There is no focal pulmonary consolidation. Mediastinum: There is no evidence of pathologic mediastinal lymphadenopathy Su: There is no evidence of pathologic hilar lymphadenopathy Axilla: There is no is a pathologic axillary lymphadenopathy Upper abdomen: There is a dissection flap within the proximal abdominal aorta. Skeletal structures: There are no lytic or blastic osseous lesions. IMPRESSION: 1. No change from the preceding study 2. Evidence of a prior median sternotomy with prosthetic aortic valve and postsurgical changes involv ing the thoracic aorta 3. No change in the appearance of the type A thoracic aortic dissection which extends into the proxim al left subclavian artery. 4. No acute intrathoracic findings ACT 112: Negative or not required by law. Electronically signed by: Rodney Novak M.D. 12/28/2019 8:44 PM
[2019-12-28 20:47] LABS: Alkaline Phosphatase 82 U/L (45-117); Globulin 4.1 gm/dl (2.5-4.0); Total Protein 8.2 gm/dl (6.4-8.2); Troponin I < 0.015 ng/ml (0-0.045)
--- NOTE | 2019-12-28 20:52 | CT Scan Report ---
CT angio abdomen pelvis w con CT DOSE: 3575.46 mGy.cm CLINICAL HISTORY: History of dissection. Chest and right flank pain. TECHNIQUE: CT angiography of the abdomen and pelvis was performed in a dynamic helical fashion during intravenous administration of 119 cc of Optiray 320. MIP images were acquired. A dose lowering tech nique was utilized adhering to the principles of ALARA. COMPARISON STUDY: December 06, 2019 FINDINGS: The visualized portions of lung bases are unremarkable. No hepatic or splenic masses are visualized. The gallbladder is surgically absent. No pancreatic masses are visualized. No adrenal masses are visualized. No renal masses are visualized. There is no hydronephrosis. There is no pathologic adenopathy. There are no abnormal pelvic masses. There are no transition zones to indicate bowel obstruction. There is no evidence of acute diverticul itis. There is no evidence of acute appendicitis. There is a persistent large right lateral abdominal wall hernia. This contains portions of colon. There is marked stretching of the arterial branches [place] pplying the colon within the hernia sac. There is an abdominal aortic dissection, similar to the preceding study. There is flow within both th e true and false lumen. The dissection extends into the right common iliac artery. The abdominal aort a measures 2.9 cm in maximal diameter. IMPRESSION: 1. No change in the thoracic aortic dissection which extends into the abdominal aorta and into the ri ght common iliac artery 2. No evidence of bowel obstruction. No evidence of free air 3. Large right lateral abdominal wall hernia containing the hepatic flexure. ACT 112: Negative or not required by law. Electronically signed by: Rodney Novak M.D. 12/28/2019 8:51 PM
[2019-12-29] MEDS ORDERED: NITROGLYCERIN SL 0.4 MG/TAB TAB SL PRN (00:49)
[2019-12-29] MEDS ORDERED: ACETAMINOPHEN 325 MG TAB PO PRN (00:49)
[2019-12-29] MEDS ORDERED: ONDANSETRON INJ 2 MG/ML 2 ML VIAL IV PRN (00:49)
[2019-12-29] MEDS: HYDROmorphone INJ 1 MG/ML SYRINGE IV PRN ×4 (01:33→11:21)
[2019-12-29] MEDS: D5W AND NSS 1,000 ML IV SCH ×2 (01:33→11:21)
--- NOTE | 2019-12-29 02:15 | History and Physical Report ---
DATE OF ADMISSION: 12/28/2019 CHIEF COMPLAINT: Abdominal pain. HISTORY OF PRESENT ILLNESS: This is a 34-year-old male with past medical history significant for hyperlipidemia, chronic left bundle branch block, morbid obesity, degenerative disc disease, generalized anxiety disorder, history of congenital bicuspid aortic valve, history of type 1 aortic dissection on 07/15/2014 secondary to marked aortopathy, underwent emergent aortic valve and root replacement with mechanical valve with coronary reimplantation, persistent aortic dissection with resultant repeat surgery on 05/27/2015 for arch repair with a redo sternotomy and left subclavian bypass via right axillary cannulation, history of hypertension, hyperlipidemia, who presents with severe abdominal pain starting today afternoon after coming from the work, was nauseous, but no vomiting. Had bowel movement around 4:00 p.m. No blood in stools or black stools. Normal bladder movements. No hematuria or burning micturition. Denies any fever or chills. Pain is going across the abdomen, very severe in nature. When the pain comes, he is also having some chest discomfort. The patient says whenever he is stressed out also, he gets some chest discomfort. Denies any shortness of breath. No headache, no blurred visions, no earache, no runny nose, no sore throat, no difficulty swallowing. Otherwise, appetite is okay. 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 He lifted some weight yesterday. Thinking that could be contributing to his pain today. He has some chronic mild swelling in the lower extremities, he uses Lasix as needed. Hemodynamics are stable. CAT scan of the abdomen and pelvis is showing no change in thoracic aortic dissection, which extends from the abdominal aorta and into the right common iliac artery. No evidence of bowel obstruction, no evidence of free air, large right lateral abdominal wall hernia containing hepatic flexure. Surgery was notified, but because of his complex history, the plan was to transfer to [facility]. ER called [facility] and Dr. Acosta, surgeon in [place], accepted the patient in transfer, but there is no bed available tonight, that is why we are called for admission. The patient will be admitted to the hospital and observed and transferred to [facility] whenever the bed is available tomorrow. ALLERGIES: No known drug allergies. PAST MEDICAL HISTORY: As mentioned above. PAST SURGICAL HISTORY: Repair of right eye with cardiopulmonary bypass, ascending aortic aneurysm graft using prosthesis, and coronary reconstruction, cholecystectomy, CBD stents inserted, ERCP multiple times, exploration of the abdomen, repair of hypospadias, pericardial window, laparoscopic cholecystectomy, aortic valve replacement. MEDICATIONS: The patient is on Cymbalta 60 mg p.o. daily, Cozaar 100 mg p.o. daily, Plavix 75 mg p.o. daily, amlodipine 5 mg p.o. b.i.d., Toprol-XL 100 mg p.o. daily, Protonix 40 mg p.o. daily, Coumadin 20 mg on Fridays and 50 mg rest of the days, Lasix 40 mg 2-3 times a week as needed along with potassium supplements. FAMILY HISTORY: Significant for maternal grandfather had diabetes and heart disorder; maternal grandmother has heart disorder and diabetes. SOCIAL HISTORY: Single, former smoker, quit in 2014, smoked 1 pack a day for 12 years. Alcohol occasionally. No drug use. REVIEW OF SYSTEMS: As per HPI. Rest of the review of systems negative. PHYSICAL EXAMINATION: GENERAL: The patient is morbidly obese. Seems to be in pain. VITAL SIGNS: Temperature 37.5, pulse 89, respiratory rate 17, blood pressure 148/70, oxygen 95% on room air. HEENT: No pallor, no icterus. Pupils equal, round, and reactive to light. NECK: No JVD, no masses, no carotid bruits. CARDIOVASCULAR: S1, S2 heard, regular rate and rhythm, no murmur, no gallop. RESPIRATORY SYSTEM: Normal AP diameter. No accessory muscle use. No wheezing, no crackles. ABDOMEN: Soft, bowel sounds sluggish. No distention. Diffuse tenderness. No guarding present. No rebound tenderness. CENTRAL NERVOUS SYSTEM: Cranial nerves II-XII grossly intact, nonfocal. EXTREMITIES: Mild pedal edema, no erythema seen. LABORATORY DATA: WBC 6.6, hemoglobin 13.2, hematocrit 39.4, platelets 217. PT 28.2, INR 3, APTT 42.3. Sodium 138, potassium 3.7, chloride 107, bicarbonate 25, BUN 21, creatinine 0.8, serum glucose 99, calcium 9.1, total bilirubin 0.1, AST 85, ALT 123, alkaline phosphatase 82. Troponin I less than 0.015. Lipase 67. IMAGING DATA: CT of the abdomen and pelvis, no change in the thoracic aortic dissection which extends into the abdominal aorta and into right common iliac artery. No evidence of bowel obstruction, no evidence of free air, large right lateral abdominal wall hernia containing the hepatic flexure. CT of the chest, no change from preceding study, evidence of prior median sternotomy with prosthetic aortic valve and postsurgical change involving the thoracic aorta. No change in the appearance of the type A thoracic aortic dissection which extends to the proximal left subclavian artery. No acute thoracic findings. EKG: Normal sinus rhythm with rate of 81, no bundle branch block, no significant change from previous EKG. ASSESSMENT AND PLAN: This is a 34-year-old male who presents with severe abdominal pain and found to have lateral abdominal wall hernia. 1. Severe abdominal pain. Imaging studies showing large right lateral abdominal wall hernia containing the hepatic flexure. The patient has complex history with aortic dissection and aortic valve replacements, multiple surgeries, and is on Coumadin. INR is 3. ER talked to [facility] for transfer and was accepted. Dr. Acosta is the surgeon accepting transfer, but there is no bed available tonight, so patient is getting admitted to med/surg [facility]. We will keep him n.p.o., IV fluids, IV Dilaudid p.r.n., IV Zofran p.r.n. If Transfer gets delayed will consult surgery while patient is here. 2. Mechanical aortic valve, on Coumadin. INR is 3, we will hold the Coumadin when INR is less than 2.5. Will Started on IV heparin. 3. History of depression and generalized anxiety disorder. Continue Cymbalta. 4. History of hypertension. Continue Toprol-XL, losartan, and amlodipine. Monitor the blood pressure. 5. History of aortic dissection status post surgery in in 2013 and again in 2015.Chronic dissection. Follows with vascular surgery. 6. Deep venous thrombosis prophylaxis. INR 3. 7. Disposition: Admit to med/surg [facility]. Transfer to [facility] whenever the bed is available. If there is delay in transfer, consult surgery while patient is here. Level 1 full code. MTDD
[2019-12-29 05:32] LABS: Basophils # (auto) 0.01 K/uL (0-0.2); Basophils % (auto) 0.2 %; Eosinophils % (auto) 2.3 %; Hematocrit (blood only) 37.3 % (42-52); Hemoglobin 12.4 g/dL (14.0-18.0); Immature Granulocytes # (auto) 0.01 K/uL (0.00-0.02); Immature Granulocytes % (auto) 0.2 %; Lymphocytes # (auto) 1.13 K/uL (1.2-3.4); Lymphocytes % (auto) 26.2 %; Mean Corpuscular Hgb Conc 33.2 g/dL (32-36); Mean Corpuscular Volume 90.1 fL (80-100); Mean Platelet Volume 9.7 fL (7.4-10.4); Monocytes # (auto) 0.38 K/uL (0.11-0.59); Monocytes % (auto) 8.8 %; Neutrophils # (auto) 2.69 K/uL (1.4-6.5); Neutrophils % (auto) 62.3 %; Platelet Count 191 K/uL (130-400); RDW Coefficient of Variation 13.4 % (11.5-14.5); RDW Standard Deviation 43.9 fL (36.4-46.3); Red Blood Count 4.14 M/uL (4.7-6.1); White Blood Count 4.32 K/uL (4.8-10.8)
[2019-12-29 05:48] LABS: INR 2.9 (0.9-1.1); Prothrombin Time 27.8 Seconds (9.0-12.0)
[2019-12-29 05:58] LABS: BUN Creatinine Ratio 20.6 (10-20); Calcium 8.3 mg/dl (8.5-10.1); Creatinine Clr Calc Pharmacy 215.3 ml/min; Est GFR (African American) 137.5; Est GFR (Non-African American) 118.6; Magnesium 2.1 mg/dl (1.8-2.4); Potassium 3.6 mmol/L (3.5-5.1)
[2019-12-29] MEDS ORDERED: AMLODIPINE BESYLATE 5 MG TAB PO SCH (09:00)
[2019-12-29] MEDS ORDERED: CLOPIDOGREL BISULFATE 75 MG TAB PO SCH (09:00)
[2019-12-29] MEDS ORDERED: DULOXETINE HCL 60 MG CAP PO SCH (09:00)
[2019-12-29] MEDS ORDERED: LOSARTAN POTASSIUM 50 MG TAB PO SCH (09:00)
--- NOTE | 2019-12-29 13:28 | Discharge Summary ---
Date of Service December 29, 2019 Admission HPI Per Admitting Provider This is a 34-year-old male with past medical history significant for hyperlipidemia, chronic left bundle branch block, morbid obesity, degenerative disc disease, generalized anxiety disorder, history of congenital bicuspid aortic valve, history of type 1 aortic dissection on 07/15/2014 secondary to marked aortopathy, underwent emergent aortic valve and root replacement with mechanical valve with coronary reimplantation, persistent aortic dissection with resultant repeat surgery on 05/27/2015 for arch repair with a redo sternotomy and left subclavian bypass via right axillary cannulation, history of hypertension, hyperlipidemia, who presents with severe abdominal pain starting today afternoon after coming from the work, was nauseous, but no vomiting. Had bowel movement around 4:00 p.m. No blood in stools or black stools. Normal bladder movements. No hematuria or burning micturition. Denies any fever or chills. Pain is going across the abdomen, very severe in nature. When the pain comes, he is also having some chest discomfort. The patient says whenever he is stressed out also, he gets some chest discomfort. Denies any shortness of breath. No headache, no blurred visions, no earache, no runny nose, no sore throat, no difficulty swallowing. Otherwise, appetite is okay. 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 He lifted some weight yesterday. Thinking that could be contributing to his pain today. He has some chronic mild swelling in the lower extremities, he uses Lasix as needed. Hemodynamics are stable. CAT scan of the abdomen and pelvis is showing no change in thoracic aortic dissection, which extends from the abdominal aorta and into the right common iliac artery. No evidence of bowel obstruction, no evidence of free air, large right lateral abdominal wall hernia containing hepatic flexure. Surgery was notified, but because of his complex history, the plan was to transfer to [place]. ER called [place] and Dr. Acosta, surgeon in [place], accepted the patient in transfer, but there is no bed available tonight, that is why we are called for admission. The patient will be admitted to the hospital and observed and transferred to [place] whenever the bed is available tomorrow. Admission Exam Per Admitting Provider GENERAL: The patient is morbidly obese. Seems to be in pain. VITAL SIGNS: Temperature 37.5, pulse 89, respiratory rate 17, blood pressure 148/70, oxygen 95% on room air. HEENT: No pallor, no icterus. Pupils equal, round, and reactive to light. NECK: No JVD, no masses, no carotid bruits. CARDIOVASCULAR: S1, S2 heard, regular rate and rhythm, no murmur, no gallop. RESPIRATORY SYSTEM: Normal AP diameter. No accessory muscle use. No wheezing, no crackles. ABDOMEN: Soft, bowel sounds sluggish. No distention. Diffuse tenderness. No guarding present. No rebound tenderness. CENTRAL NERVOUS SYSTEM: Cranial nerves II-XII grossly intact, nonfocal. EXTREMITIES: Mild pedal edema, no erythema seen. Principal Diagnosis Abdominal pain, abdominal wall hernia, history of aortic dissection, and aortic valve repair, on Coumadin Discharge Exam GENERAL: franci morbidly obese male lying in bed, seems in pain VITAL SIGNS: Temperature 36.6 C, pulse 72, respiratory rate 18, BP 162/81, oxygen 97% on RA HEENT: NC/AT,no icterus. EOMI, Pupils equal, round, and reactive to light. NECK: No JVD, no masses, no carotid bruits. CARDIOVASCULAR: S1, S2 heard, regular rate and rhythm, no murmur, no gallop. Stone sound of prosthetic aortic valve RESPIRATORY SYSTEM: Normal AP diameter. No accessory muscle use. No wheezing, rhonchi or crackles. ABDOMEN: Soft, bowel sounds sluggish. No distention. Diffuse tenderness on palpation. NEURO: alert and oriented x3, speech fluent, no facial asymmetry, moves extremities spontaneously EXTREMITIES: Mild pedal edema, no erythema seen. Moves extremities spontaneously. Discharge Data Allergies Allergy/AdvReac Type Severity Reaction Status Date / Time No Known Allergies Allergy Verified 12/28/19 20:04 Consultations 12/28/19 21:51 ED Decision to Admit Stat 12/29/19 13:17 Burn CD for patient Stat Ordered Studies 12/28/19 19:36 CT angio abdomen pelvis w con Stat FINDINGS: The visualized portions of lung bases are unremarkable. No hepatic or splenic masses are visualized. The gallbladder is surgically absent. No pancreatic masses are visualized. No adrenal masses are visualized. No renal masses are visualized. There is no hydronephrosis. There is no pathologic adenopathy. There are no abnormal pelvic masses. There are no transition zones to indicate bowel obstruction. There is no evidence of acute diverticulitis. There is no evidence of acute appendicitis. There is a persistent large right lateral abdominal wall hernia. This contains portions of colon. There is marked stretching of the arterial branches supplying the colon within the hernia sac. There is an abdominal aortic dissection, similar to the preceding study. There is flow within both the true and false lumen. The dissection extends into the right common iliac artery. The abdominal aorta measures 2.9 cm in maximal diameter. IMPRESSION: 1. No change in the thoracic aortic dissection which extends into the abdominal aorta and into the right common iliac artery 2. No evidence of bowel obstruction. No evidence of free air 3. Large right lateral abdominal wall hernia containing the hepatic flexure. CT angio chest dissec wo/w con Stat FINDINGS: Thyroid: Imaged portions of the thyroid gland are normal in appearance. Thoracic aorta: Noncontrast images reveal no evidence of acute thoracic hematoma. Postcontrast images reveal evidence of a chronic dissection with repair of the ascending thoracic aorta and aortic valve replacement. The dissection flap extends into the left subclavian artery. The descending thoracic aorta measures 37 mm. A descending thoracic dissection flap is visualized. Pulmonary vasculature: The pulmonary trunk is normal in caliber. There are no central filling defects identified to suggest pulmonary embolus. Note that this examination was not protocoled for the evaluation of pulmonary emboli. HEART: There is an aortic valve replacement. There is no pericardial effusion. Lungs and pleural spaces: There are no pleural effusions. There is no focal pulmonary consolidation. Mediastinum: There is no evidence of pathologic mediastinal lymphadenopathy Su: There is no evidence of pathologic hilar lymphadenopathy Axilla: There is no is a pathologic axillary lymphadenopathy Upper abdomen: There is a dissection flap within the proximal abdominal aorta. Skeletal structures: There are no lytic or blastic osseous lesions. IMPRESSION: 1. No change from the preceding study 2. Evidence of a prior median sternotomy with prosthetic aortic valve and postsurgical changes involving the thoracic aorta 3. No change in the appearance of the type A thoracic aortic dissection which extends into the proximal left subclavian artery. 4. No acute intrathoracic findings Hospital Course (1) Intractable abdominal pain: (2) Abdominal wall hernia: This is a 34-year-old male who presents with severe abdominal pain and found to have lateral abdominal wall hernia. 1. Severe abdominal pain. Imaging studies showing large right lateral abdominal wall hernia containing the hepatic flexure. The patient has complex history with aortic dissection and aortic valve replacements, multiple surgeries, and is on Coumadin. INR 3 on admission. ER contacted [facility] in [place] for transfer and was accepted by surgeon, Dr. Acosta. However, there were no beds available overnight, so patient was admitted to med/surg [facility]. Now bed availability confirmed, will plan to transfer the patient to [place]. We will keep him n.p.o., IV fluids, IV Dilaudid p.r.n., IV Zofran p.r.n. If Transfer gets delayed will consult surgery while patient is here. 2. Mechanical aortic valve, on Coumadin. INR is 3, we will hold the Coumadin when INR is less than 2.5, will start IV heparin 3. History of depression and generalized anxiety disorder. Continue Cymbalta. 4. History of hypertension. Continue Toprol-XL, losartan, and amlodipine. Monitor the blood pressure. 5. History of aortic dissection status post surgery in in 2013 and again in 2014.Chronic dissection. Follows with vascular surgery. 6. Deep venous thrombosis prophylaxis. INR 3. 7. Disposition: Admit to med/surg [facility]. Transfer to [facility] whenever the bed is available. If there is delay in transfer, consult surgery while patient is here. Total Time Total Time Spent Total Time Spent (In Minutes): 35 Total Time Includes: Examination of the Patient, Discharge Planning, Medication Reconciliation and Communication With Other Providers Discharge Plan Discharge Items Patient Disposition: Transfer Acute Care Hospital Reason For Visit: ABDOMINAL PAIN Discharge Diagnosis: Abdominal pain, abdominal wall hernia, history of aortic dissection, Anticoagulated on warfarin Activity: As commented below Non-emergency contact: Surgeon Call non-emergency contact if: you have any medication questions and your symptoms worsen Follow-up/Referrals: Brian Guido MD [Primary Care Provider] - () Diet: Nothing by Mouth Addtl Attending Provider Instructions: Patient presented to the hospital with severe abdominal pain and found to have lateral abdominal wall hernia, containing hepatic flexure. Patient has complex history with aortic dissection and aortic valve replacement, multiple surgeries, and is on Coumadin, INR therapeutic. ER contacted [facility] in [place] for transfer and patient was accepted by surgeon, Dr. Acosta. However at that time, there were no beds available and so patient was admitted to the hospital. Patient to be transferred to [facility] in [place]. Pending Studies at Discharge: No Stand-Alone Forms: My [facility] Skilled Items Patient informed of condition?: Yes DNR: No Discharge Level of Care: Other Communicable Disease: No Discharge Prognosis: Other Lines: Peripheral IV Urinary Catheter: No Medications and DC Order Prescriptions: Continued warfarin 5 mg tablet 15 mg PO DAILY RF: 0 metoprolol succinate 50 mg tablet extended release 24 hr 100 mg PO QPM RF: 0 clopidogrel 75 mg tablet 75 mg PO QAM RF: 0 amlodipine 5 mg tablet 5 mg PO BID RF: 0 acetaminophen [Tylenol Extra Strength] 500 mg Tablet 1,000 mg PO Q6H PRN (Reason: Pain) RF: 0 losartan 100 mg tablet 100 mg PO QAM RF: 0 duloxetine 60 mg capsule,delayed release(DR/EC) 60 mg PO QAM RF: 0 Discontinued furosemide [Lasix] 40 mg Tablet 40 mg PO Q OTHER DAY PRN (Reason: Edema) RF: 0 potassium chloride 10 meq 20 meq PO UD RF: 0 Discharge Orders: Discharge Order (Routine); Ordered 12/29/19 Ordered By: Enrique Kilpatrick Admission Data Admit Date/Time: 12/29/19 08:54 Attending Provider: Enrique Kilpatrick Admit Provider: David Simon Primary Care Provider: Brian Guido Other Providers: David Simon
[2019-12-29] MEDS ORDERED: HYDROmorphone INJ 1 MG/ML SYRINGE IV PRN (13:29)
--- NOTE | 2019-12-29 14:53 | Electrocardiogram Report ---
Test Reason : Blood Pressure : / mmHG Vent. Rate : 081 BPM Atrial Rate : 081 BPM P-R Int : 204 ms QRS Dur : 166 ms QT Int : 436 ms P-R-T Axes : 041 -11 126 degrees QTc Int : 506 ms Normal sinus rhythm Left bundle branch block Abnormal ECG When compared with ECG of 12-NOV-2018 06:47, No significant change was found Confirmed by Shivam Durant ([id number]) on 12/29/2019 2:52:42 PM Referred By: REFERRED SELF Confirmed By:Irvni Durant
[2019-12-29] MEDS ORDERED: METOPROLOL SUCC 50MG EXT REL TAB PO SCH (21:00)
== END 2019-12-29 16:30 | disposition short-term general hospital (02) | DRG 393 ==
LOC: 2N 18:48 → ED 18:48 → 2N 12-29 00:14

== ENCOUNTER 2021-03-11 14:20 | Inpatient (IN) ==
[2021-03-11] MEDS ORDERED: ONDANSETRON INJ 2 MG/ML 2 ML VIAL IV STA (14:46)
[2021-03-11] MEDS ORDERED: MoRPHine SULFATE 4 MG/ML 1 ML CARP\\VIAL IV STA ×2 (14:46→16:20)
[2021-03-11] MEDS ORDERED: NITROGLYCERIN 2% OINTMENT 30GM TUBE EXT STA (14:54)
--- NOTE | 2021-03-11 14:54 | Emergency Department Note ---
Impression & Plan Bilateral flank pain, Acute pyelonephritis, Chest tightness, Fluid overload ED Provider Note NAME: ROWDY ARMIJO AGE: 35 SEX: M : 1985 ARRIVES VIA: Walk-In INFORMANT: [Patient] ED PROVIDER(S): [Ramiro Summers MD] CHIEF COMPLAINT: Swelling HISTORY OF PRESENT ILLNESS: The patient is a 35-year-old male who states in the last 24 hours he thinks he may have gained 8 pounds. His legs feel swollen, he has noted some chest tightness and some mild shortness of breath. Last night, he woke up because of his issues, he had a hard time sleeping. He took Lasix at around 3 AM, he took 40 mg. He had a very small amount of urine output. He then took another 40 mg of Lasix about 2 hours ago, again, very little urine output. The patient complains of back pain as well. The back pain is bilateral and an 8/10. He has joint pain and his legs feel stiff, the leg pain is 5/10. The patient has a history of an aortic valve replacement, he has a mechanical valve. He is on Coumadin. He also has had his aortic arch replaced. He has a history of aortic dissection. The patient has had heart failure before, he is concerned that he is again filling with fluid. There has been no fever, no cough. No blood noted in his urine. He thought it may have burned a bit when he urinated today. REVIEW OF SYSTEMS: See HPI for pertinent positives and negatives. A total of ten systems were reviewed and were otherwise negative. PMHx/PSHx: See Below SOCIAL HISTORY: See Below. PHYSICAL EXAM: GENERAL: Patient is in no acute distress. HEENT: No acute trauma, normocephalic atraumatic, mucous membranes moist, no nasal congestion, no scleral icterus. NECK: No stridor, no adenopathy, no meningismus, trachea is midline. LUNGS: Clear to auscultation bilaterally, no wheeze, no rhonchi, breath sounds equal. HEART: 3/6 systolic murmur heard best at the right sternal border. There is a metallic click heard. There is a regular rate and rhythm. ABDOMEN: Soft, nontender, bowel sounds positive, no hernias, no peritonitis. EXTREMITIES: No cyanosis, moderate to significant bilateral pedal edema, full range of motion of all the joints without pain or difficulty, no signs for acute trauma. NEUROLOGIC: Oriented x 3, no acute motor or sensory deficits, no focal weakness. SKIN: No rash, no jaundice, no diaphoresis. DIFFERENTIAL DIAGNOSIS: Cardiac ischemia, aortic dissection, pulmonary embolism, pneumothorax, pneumonia, pericarditis, myocarditis, esophageal rupture, GERD, cholecystitis, pancreatitis, musculoskeletal, as well as other pathologies. EMERGENCY DEPARTMENT COURSE/PROCEDURES: ECG: Indication was chest tightness. The ECG shows a normal sinus rhythm with a rate of 74. There is a left bundle branch block. The QTc is 415. There are no PVCs. No concerning ST elevation. Compared to an ECG from 28 December 2019, there is no significant change. Continuous Cardiac Monitoring: An order was placed for continuous cardiac monitoring. The monitor shows a rate of 76 with normal sinus rhythm. MEDICAL DECISION MAKING: There is no leukocytosis. There is a mild anemia but this is baseline for the patient. There is a normal platelet count. INR is slightly subtherapeutic at 1.8. There is no kidney failure or significant electrolyte abnormality. No concerning liver enzyme elevation. No evidence for pancreatitis. Patient appears to be in a euthyroid state. Urinalysis is consistent with infection. Covid and influenza testing returned negative. Chest x-ray shows cardiomegaly, no true CHF. BNP was not elevated making CHF less likely. Abdominal and pelvis CT did not show any evidence for ureteral stone or bowel obstruction. No acute surgical process by CT scan. The patient was given IV Zofran and IV morphine. A second dose of IV morphine was given for his pain. He was placed on 1 inch of nitroglycerin paste. He was given IV Bumex to help with diuresis. He received IV ceftriaxone for the presumed pyelonephritis. The patient presents with chest tightness, flank pain and some edema. He is having a hard time making his urine. He does appear somewhat fluid overloaded. He appears to have pyelonephritis. With his past history, with the findings today, I do think a hospital stay would be in order. I did speak with the patient and case management. The on-call hospitalist was consulted. Past Med/Surg History Medical History Amaurosis fugax of right eye Anticoagulated on Coumadin Anxiety Aortic dissection Per Clarence Hernandez PA-C progress note from 04/08/18 " Type 1 aortic dissection, 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 3.Status post emergent aortic valve and root replacement with [employer] Brant's mechanical valve and conduit size 27 along with coronary reimplantation. 4.Post discharge course complicated by cardiac tamponade requiring left thoracotomy, pericardial window on 07/29/14. 5.Patient status post 05/29/2015 redo sternotomy, left carotid subclavian bypass, right axillary cannulation with an 8 mm graft, arch replacement with a 30 mm branched Dacron graft, ligation of left subclavian artery, arch debranching with individual anastomoses to the right subclavian, right carotid, and left carotid arteries." Chronic systolic (congestive) heart failure Congenital bicuspid aortic valve DDD (degenerative disc disease), lumbar HLD (hyperlipidemia) HTN (hypertension) Surgical History H/O exploratory laparotomy H/O mechanical aortic valve replacement s/p St. Judes mech valve and conduit size 27 along with coronary reimplantation 07/2014 History of ERCP S/P AAA repair "07/15/2014 REPAIR AORTA WITH CARDIOPULMONARY BYPASS performed [place] Tim[place] [facility] [place]istent aortic dissection with resultant repeat surgery on 05/27/2015 for arch repair." S/P cholecystectomy S/P ERCP (06/08/14) Family History Mother Alive and well Father Alive and well Grandfather (Maternal) Coronary heart disease T2DM (type 2 diabetes mellitus) Grandmother (Maternal) T2DM (type 2 diabetes mellitus) Coronary heart disease Other No family history of kidney disease Social History Smoking Status: Never smoker Years Smoked: 12; Cigarettes Per Day: 1; Second Hand Exposure: No; Hx Alcohol Use: Yes Alcohol type: beer Hx Substance Use: No Preferred Language: Turkish Communication Ability: Effective 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 Beliefs That Will Affect Care: None Current Living Situation: Parent Current Living Situation Comment: Lives with father Feels Safe at Home: Yes Assistive Devices: None Allergies Allergies Allergy/AdvReac Type Severity Reaction Status Date / Time No Known Allergies Allergy Verified 03/11/21 15:15 Home Meds Home Medications Medication Instructions Recorded Confirmed amlodipine 5 mg PO BID 11/12/18 03/11/21 clopidogrel 75 mg PO QAM 11/12/18 03/11/21 duloxetine 60 mg PO QAM 11/12/18 03/11/21 losartan 100 mg PO QAM 11/12/18 03/11/21 warfarin 5 mg PO UD 12/06/19 03/11/21 duloxetine 30 mg PO QAM 03/11/21 03/11/21 furosemide 40 mg PO DAILY PRN 03/11/21 03/11/21 hydrochlorothiazide 25 mg PO QAM 03/11/21 03/11/21 metoprolol succinate 100 mg PO DAILY 03/11/21 03/11/21 potassium chloride 20 meq PO DAILY PRN 03/11/21 03/11/21 Results & Data (ED) Vital Signs Vital Signs - 24 hr 03/11/21 14:23 03/11/21 15:57 03/11/21 17:44 Temperature 36.4 C L Temperature Source Oral Pulse Rate 76 Pulse Rate [Right Finger] 67 67 Pulse Rhythm Regular Pulse Strength Normal Respiratory Rate 16 20 18 Respiratory Effort / Characteristics Non-Labored Spontaneous Non-Labored Spontaneous Non-Labored Spontaneous Respiratory Depth Normal Normal Normal Respiratory Pattern Regular Blood Pressure 127/71 Blood Pressure [Right Arm] 111/53 L 111/61 Blood Pressure Mean 89 Blood Pressure Mean [Right Arm] 72 77 Blood Pressure Position Sitting Blood Pressure Position [Right Arm] Sitting Sitting Pulse Oximetry 96 92 95 Oxygen Delivery Method Room Air Room Air Room Air Sepsis Recent Fever Within 48 Hours No Sepsis New/Unexplained Change in Mental Status No Sepsis Action Taken by Nursing No Action Required Home Medications Current Medication List: was personally reviewed by me Laboratory Data Attestation: I reviewed the patient's lab results. Result diagrams: 03/11/21 14:54 03/11/21 14:54 Lab Results 03/11/21 03/11/21 03/11/21 Range/Units 14:54 14:54 14:54 WBC 4.60 L (4.8-10.8) K/uL RBC 4.01 L (4.7-6.1) M/uL Hgb 12.1 L (14.0-18.0) g/dL Hct 36.5 L (42-52) % MCV 91.0 (80-100) fL MCH 30.2 (25-34) pg MCHC 33.2 (32-36) g/dL RDW Std Deviation 44.0 (36.4-46.3) fL RDW Coeff of Levon 13.1 (11.5-14.5) % Plt Count 264 (130-400) K/uL MPV 9.7 (7.4-10.4) fL Immature Gran % (Auto) 0.0 % Neut % (Auto) 60.5 % Lymph % (Auto) 26.3 % [place] % (Auto) 8.9 % Eos % (Auto) 4.1 % Baso % (Auto) 0.2 % Neut # (Auto) 2.78 (1.4-6.5) K/uL Lymph # (Auto) 1.21 (1.2-3.4) K/uL [place] # (Auto) 0.41 (0.11-0.59) K/uL Eos # (Auto) 0.19 (0-0.5) K/uL Baso # (Auto) 0.01 (0-0.2) K/uL Immature Gran # (Auto) 0.00 (0.00-0.02) K/uL PT 17.1 H (9.0-12.0) Seconds INR 1.8 H (0.9-1.1) APTT 32.9 H (21.0-31.0) Seconds PTT Ratio 1.3 Sodium 138 (136-145) mmol/L Potassium 3.7 (3.5-5.1) mmol/L Chloride 101 (98-107) mmol/L Carbon Dioxide 31 (21-32) mmol/L Anion Gap 6.0 (3-11) BUN 20 H (7-18) mg/dl Creatinine 0.86 (0.6-1.4) mg/dl Est Cr Clr Drug Dosing 194.0 ml/min Est GFR ( Amer) 131.1 Est GFR (Non-Af Amer) 113.1 BUN/Creatinine Ratio 22.7 H (10-20) Glucose 95 (70-99) mg/dl Calcium 8.9 (8.5-10.1) mg/dl Magnesium 2.0 (1.8-2.4) mg/dl Total Bilirubin 0.7 (0.2-1) mg/dl AST 37 (15-37) U/L ALT 41 (12-78) U/L Alkaline Phosphatase 75 (45-117) U/L Troponin I < 0.015 (0-0.045) ng/ml NT-Pro-B Natriuret Pep 135 (0-450) pg/ml Total Protein 7.8 (6.4-8.2) gm/dl Albumin 3.5 (3.4-5.0) gm/dl Globulin 4.3 H (2.5-4.0) gm/dl Albumin/Globulin Ratio 0.8 L (0.9-2) Lipase 77 (73-393) U/L TSH 2.120 (0.300-4.500) uIu/ml Urine Color Urine Appearance (Clear) Urine pH (4.5-7.5) Ur Specific [place] (1.000-1.030) Urine Protein (Negative) Urine Glucose (UA) (Negative) Urine Ketones (Negative) Urine Blood (Negative) Urine Nitrite (Negative) Urine Bilirubin (Negative) Urine Urobilinogen (Negative) Ur Leukocyte Esterase (Negative) Urine WBC (Auto) (0-5) /hpf Urine RBC (Auto) (0-4) /hpf U Hyaline Cast (Auto) (0-5) /lpf U Epithel Cells (Auto) (0-5) /lpf Urine Bacteria (Auto) (Negative) COVID-19 Eval Order SARS-CoV-2 (PCR) (Negative) Influenza Type A (PCR) (Neg) Influenza Type B (PCR) (Neg) RSV (RT-PCR) (Neg) 03/11/21 03/11/21 03/11/21 Range/Units 14:55 18:15 18:15 WBC (4.8-10.8) K/uL RBC (4.7-6.1) M/uL Hgb (14.0-18.0) g/dL Hct (42-52) % MCV (80-100) fL MCH (25-34) pg MCHC (32-36) g/dL RDW Std Deviation (36.4-46.3) fL RDW Coeff of Levon (11.5-14.5) % Plt Count (130-400) K/uL MPV (7.4-10.4) fL Immature Gran % (Auto) % Neut % (Auto) % Lymph % (Auto) % [place] % (Auto) % Eos % (Auto) % Baso % (Auto) % Neut # (Auto) (1.4-6.5) K/uL Lymph # (Auto) (1.2-3.4) K/uL [place] # (Auto) (0.11-0.59) K/uL Eos # (Auto) (0-0.5) K/uL Baso # (Auto) (0-0.2) K/uL Immature Gran # (Auto) (0.00-0.02) K/uL PT (9.0-12.0) Seconds INR (0.9-1.1) APTT (21.0-31.0) Seconds PTT Ratio Sodium (136-145) mmol/L Potassium (3.5-5.1) mmol/L Chloride (98-107) mmol/L Carbon Dioxide (21-32) mmol/L Anion Gap (3-11) BUN (7-18) mg/dl Creatinine (0.6-1.4) mg/dl Est Cr Clr Drug Dosing ml/min Est GFR ( Amer) Est GFR (Non-Af Amer) BUN/Creatinine Ratio (10-20) Glucose (70-99) mg/dl Calcium (8.5-10.1) mg/dl Magnesium (1.8-2.4) mg/dl Total Bilirubin (0.2-1) mg/dl AST (15-37) U/L ALT (12-78) U/L Alkaline Phosphatase (45-117) U/L Troponin I (0-0.045) ng/ml NT-Pro-B Natriuret Pep (0-450) pg/ml Total Protein (6.4-8.2) gm/dl Albumin (3.4-5.0) gm/dl Globulin (2.5-4.0) gm/dl Albumin/Globulin Ratio (0.9-2) Lipase (73-393) U/L TSH (0.300-4.500) uIu/ml Urine Color Yellow Urine Appearance Cloudy A (Clear) Urine pH 5.5 (4.5-7.5) Ur Specific [place] 1.020 (1.000-1.030) Urine Protein 1+ H (Negative) Urine Glucose (UA) Negative (Negative) Urine Ketones Negative (Negative) Urine Blood Negative (Negative) Urine Nitrite Positive A (Negative) Urine Bilirubin Negative (Negative) Urine Urobilinogen Negative (Negative) Ur Leukocyte Esterase Trace H (Negative) Urine WBC (Auto) 10-30 H (0-5) /hpf Urine RBC (Auto) 0-4 (0-4) /hpf U Hyaline Cast (Auto) 5-10 H (0-5) /lpf U Epithel Cells (Auto) 10-20 H (0-5) /lpf Urine Bacteria (Auto) 3+ H (Negative) COVID-19 Eval Order [facility]Rsv at [facility] SARS-CoV-2 (PCR) NEGATIVE (Negative) Influenza Type A (PCR) Negative (Neg) Influenza Type B (PCR) Negative (Neg) RSV (RT-PCR) Negative (Neg) Administered Medications Discontinued Medications Hydromorphone HCl (Hydromorphone Inj 1 Mg/Ml Syringe) 1 mg IV NOW STA Stop: 03/11/21 19:54 Last Admin: 03/11/21 20:04 Dose: 1 mg Documented by: [id number] Bumetanide 1 mg/ Syringe 4 mls @ 4 mls/min IV NOW STA Stop: 03/11/21 15:30 Last Admin: 03/11/21 15:56 Dose: 4 mls/min Documented by: [id number] Ceftriaxone Sodium (Rocephin) 2,000 mg in 70 mls @ 140 mls/hr IV NOW STA Stop: 03/11/21 18:09 Last Infusion: 03/11/21 18:41 Dose: 0 mls/hr Documented by: [id number] Admin: 03/11/21 18:13 Dose: 140 mls/hr Documented by: [id number] Ioversol (Optiray 350 500ml) 120 ml IV ONCE ONE Stop: 03/11/21 20:49 Last Admin: 03/11/21 20:48 Dose: 120 ml Documented by: [id number] Morphine Sulfate (Morphine Sulfate 4 Mg/Ml 1 Ml Carp\\Vial) 4 mg IV NOW STA Stop: 03/11/21 14:47 Last Admin: 03/11/21 15:01 Dose: 4 mg Documented by: [id number] Morphine Sulfate (Morphine Sulfate 4 Mg/Ml 1 Ml Carp\\Vial) 4 mg IV NOW STA Stop: 03/11/21 16:21 Last Admin: 03/11/21 16:23 Dose: 4 mg Documented by: [id number] Nitroglycerin (Nitroglycerin 2% Ointment 30gm Tube) 1 inch EXT NOW STA Stop: 03/11/21 14:55 Last Admin: 03/11/21 15:01 Dose: 1 inch Documented by: [id number] Ondansetron HCl (Ondansetron Inj 2 Mg/Ml 2 Ml Vial) 4 mg IV NOW STA Stop: 03/11/21 14:47 Last Admin: 03/11/21 15:01 Dose: 4 mg Documented by: [id number] Imaging Data Radiologist's Impression: Chest X-Ray 03/11/21 14:47 SINGLE VIEW CHEST CLINICAL HISTORY: Atypical chest pain. FINDINGS: 2 AP, portable, upright chest radiographs are compared to study dated 11/13/2018 and correlated with chest CT dated 12/28/2019. The patient is status post midline sternotomy and cardiac valve surgery. The heart is enlarged. The pulmonary vasculature is noncongested. There is mild bibasilar atelectasis. No airspace consolidation or large pleural effusion is identified. No pneumothorax is seen. The bony thorax is grossly intact. Surgical clips project over the right apex. IMPRESSION: Cardiomegaly with no acute cardiopulmonary abnormality. ACT 112: Negative or not required by law. Electronically signed by: Ramiro Escalera M.D. 03/11/2021 3:28 PM Abdomen/Pelvis CT 03/11/21 16:20 CT SCAN OF THE ABDOMEN AND PELVIS WITHOUT IV CONTRAST CLINICAL HISTORY: Generalized abdominal pain. Low back pain. COMPARISON STUDY: Multiple prior abdominal CT scans, most recently dated 10/31/2020. TECHNIQUE: CT scan of the abdomen and pelvis is performed from the lung bases to the proximal femora. Images are reviewed in the axial, sagittal, and coronal planes. IV contrast was not administered for this examination. Note that the examination was performed in suboptimal fashion without oral and IV contrast. A dose lowering technique was utilized adhering to the principles of ALARA. The examination is degraded by large body habitus, and by streak artifact from the body wall abutting the CT gantry. CT DOSE: 2263.03 mGy.cm FINDINGS: Lung bases: The patient is status post midline sternotomy and aortic valve surgery. The heart is top normal in size and without pericardial effusion. The lung bases are clear noting mild bibasilar atelectasis. Liver: The unenhanced liver is normal in size, contour, and attenuation. There is no intrahepatic biliary ductal dilatation. Gallbladder: Surgically absent noting clips in the gallbladder fossa. Spleen: Normal in size and attenuation. Pancreas: Unremarkable. Adrenal glands: Unremarkable. Kidneys: The unenhanced kidneys are normal in size and without hydronephrosis. There are no renal calculi identified. There is no evidence of contour deforming renal mass lesion. Abdominal vasculature: The abdominal aorta is normal in course and caliber. A midline surgical scar is noted. There is evidence of previous ventral hernia repair. Bowel: There is no bowel obstruction. Mild/moderate fecal retention is seen throughout the colon. The appendix is not identified and reported surgically absent. Peritoneum: There is no intraperitoneal free air or abdominal ascites. Lymphadenopathy: None. Pelvic viscera: The prostate gland is diminutive and heterogeneous. The bladder is mildly distended and otherwise unremarkable. The seminal vesicles are normal. Skeletal structures: No lytic or blastic lesions are seen. There is moderate disc space narrowing at L5-S1 with a posterior disc osteophyte complex at this level. Mild sclerotic change is noted in the sacroiliac joints. IMPRESSION: There are no acute infectious or inflammatory findings in the abdomen or pelvis. ACT 112: Negative or not required by law. Electronically signed by: Ramiro Escalera M.D. 03/11/2021 5:26 PM Discharge Plan Visit Data Chief Complaint: Swelling/Edema to Extremity Stated Complaint: CHEST PRESSURE, BI LATERAL LEG/FEET SWELLING, ED Provider: Ramiro Summers Discharge Problem: Bilateral flank pain, Acute pyelonephritis, Chest tightness, Fluid overload Patient Disposition: Admitted As Inpatient Condition: Fair Forms Stand Alone Forms: [facility] Prescriptions Prescriptions: No Action warfarin 5 mg tablet 5 mg PO UD RF: 0 clopidogrel 75 mg tablet 75 mg PO QAM RF: 0 amlodipine 5 mg tablet 5 mg PO BID RF: 0 losartan 100 mg tablet 100 mg PO QAM RF: 0 duloxetine 60 mg capsule,delayed release(DR/EC) 60 mg PO QAM RF: 0 metoprolol succinate 100 mg tablet extended release 24 hr 100 mg PO DAILY RF: 0 hydrochlorothiazide 25 mg tablet 25 mg PO QAM RF: 0 duloxetine 30 mg capsule,delayed release(DR/EC) 30 mg PO QAM RF: 0 furosemide 40 mg Tablet 40 mg PO DAILY PRN (Reason: Fluid Retention) RF: 0 potassium chloride 10 mEq Tablet Extended Release 20 meq PO DAILY PRN (Reason: if taking furosemide) RF: 0 Referrals Referrals: Brian Guido MD [Primary Care Provider] - Discharge Problem: Fluid overload Qualifiers: Hypervolemia type: unspecified Qualified Code(s): E87.70 - Fluid overload, unspecified
[2021-03-11 15:06] LABS: Basophils # (auto) 0.01 K/uL (0-0.2); Basophils % (auto) 0.2 %; Eosinophils # (auto) 0.19 K/uL (0-0.5); Eosinophils % (auto) 4.1 %; Hematocrit (blood only) 36.5 % (42-52); Hemoglobin 12.1 g/dL (14.0-18.0); Lymphocytes # (auto) 1.21 K/uL (1.2-3.4); Lymphocytes % (auto) 26.3 %; Mean Corpuscular Hemoglobin 30.2 pg (25-34); Mean Corpuscular Hgb Conc 33.2 g/dL (32-36); Mean Platelet Volume 9.7 fL (7.4-10.4); Monocytes # (auto) 0.41 K/uL (0.11-0.59); Monocytes % (auto) 8.9 %; Neutrophils # (auto) 2.78 K/uL (1.4-6.5); Neutrophils % (auto) 60.5 %; Platelet Count 264 K/uL (130-400); RDW Coefficient of Variation 13.1 % (11.5-14.5); Red Blood Count 4.01 M/uL (4.7-6.1)
[2021-03-11 15:22] LABS: Alanine Aminotransferase 41 U/L (12-78); Albumin Level 3.5 gm/dl (3.4-5.0); Aspartate Aminotransferase 37 U/L (15-37); BUN Creatinine Ratio 22.7 (10-20); Blood Urea Nitrogen 20 mg/dl (7-18); Calcium 8.9 mg/dl (8.5-10.1); Carbon Dioxide 31 mmol/L (21-32); Chloride 101 mmol/L (98-107); Est GFR (African American) 131.1; Est GFR (Non-African American) 113.1; Glucose 95 mg/dl (70-99); Lipase 77 U/L (73-393); Potassium 3.7 mmol/L (3.5-5.1); Sodium 138 mmol/L (136-145)
[2021-03-11 15:23] LABS: INR 1.8 (0.9-1.1); Partial Thromboplastin Ratio 1.3; Partial Thromboplastin Time 32.9 Seconds (21.0-31.0); Prothrombin Time 17.1 Seconds (9.0-12.0)
[2021-03-11 15:27] LABS: Albumin Globulin Ratio 0.8 (0.9-2); Alkaline Phosphatase 75 U/L (45-117); Bilirubin,Total 0.7 mg/dl (0.2-1); Globulin 4.3 gm/dl (2.5-4.0); NT Pro B Type Natriuretic Pept 135 pg/ml (0-450); Total Protein 7.8 gm/dl (6.4-8.2); Troponin I < 0.015 ng/ml (0-0.045)
[2021-03-11] MEDS ORDERED: BUMETANIDE 1 MG in SYRINGE 0 ML IV STA (15:29)
--- NOTE | 2021-03-11 15:29 | XRay Report ---
SINGLE VIEW CHEST CLINICAL HISTORY: Atypical chest pain. FINDINGS: 2 AP, portable, upright chest radiographs are compared to study dated 11/13/2018 and correla zhane with chest CT dated 12/28/2019. The patient is status post midline sternotomy and cardiac valve [place] rgery. The heart is enlarged. The pulmonary vasculature is noncongested. There is mild bibasilar atel ectasis. No airspace consolidation or large pleural effusion is identified. No pneumothorax is seen. The bony thorax is grossly intact. Surgical clips project over the right apex. IMPRESSION: Cardiomegaly with no acute cardiopulmonary abnormality. ACT 112: Negative or not required by law. Electronically signed by: Ramiro Escalera M.D. 03/11/2021 3:28 PM
[2021-03-11 15:58] LABS: Appearance Urine Cloudy (Clear); Bacteria Urine Automated 3+ (Negative); Bilirubin Urine Negative (Negative); Blood Urine Negative (Negative); Color Urine Yellow; Glucose Urine UA Negative (Negative); Ketones Urine Negative (Negative); Leukocyte Esterase Urine Trace (Negative); Nitrite Urine Positive (Negative); Protein Urine 1+ (Negative); RBC Urine Automated 0-4 /hpf (0-4); Urobilinogen Urine Negative (Negative); pH Urine 5.5 (4.5-7.5)
--- NOTE | 2021-03-11 17:28 | CT Scan Report ---
CT SCAN OF THE ABDOMEN AND PELVIS WITHOUT IV CONTRAST CLINICAL HISTORY: Generalized abdominal pain. Low back pain. COMPARISON STUDY: Multiple prior abdominal CT scans, most recently dated 10/31/2020. TECHNIQUE: CT scan of the abdomen and pelvis is performed from the lung bases to the proximal femora. Images are reviewed in the axial, sagittal, and coronal planes. IV contrast was not administered for this examination. Note that the examination was performed in suboptimal fashion without oral and IV contrast. A dose lowering technique was utilized adhering to the principles of ALARA. The examination is degraded by large body habitus, and by streak artifact from the body wall abutting the CT gantry. CT DOSE: 2263.03 mGy.cm FINDINGS: Lung bases: The patient is status post midline sternotomy and aortic valve surgery. The heart is top normal in size and without pericardial effusion. The lung bases are clear noting mild bibasilar atele ctasis. Liver: The unenhanced liver is normal in size, contour, and attenuation. There is no intrahepatic sia iary ductal dilatation. Gallbladder: Surgically absent noting clips in the gallbladder fossa. Spleen: Normal in size and attenuation. Pancreas: Unremarkable. Adrenal glands: Unremarkable. Kidneys: The unenhanced kidneys are normal in size and without hydronephrosis. There are no renal yaquelin culi identified. There is no evidence of contour deforming renal mass lesion. Abdominal vasculature: The abdominal aorta is normal in course and caliber. A midline surgical scar i s noted. There is evidence of previous ventral hernia repair. Bowel: There is no bowel obstruction. Mild/moderate fecal retention is seen throughout the colon. The appendix is not identified and reported surgically absent. Peritoneum: There is no intraperitoneal free air or abdominal ascites. Lymphadenopathy: None. Pelvic viscera: The prostate gland is diminutive and heterogeneous. The bladder is mildly distended a nd otherwise unremarkable. The seminal vesicles are normal. Skeletal structures: No lytic or blastic lesions are seen. There is moderate disc space narrowing at L5-S1 with a posterior disc osteophyte complex at this level. Mild sclerotic change is noted in the s acroiliac joints. IMPRESSION: There are no acute infectious or inflammatory findings in the abdomen or pelvis. ACT 112: Negative or not required by law. Electronically signed by: Ramiro Escalera M.D. 03/11/2021 5:26 PM
[2021-03-11] MEDS ORDERED: cefTRIAXone SODIUM 2,000 MG/70 ML BAG IV STA (17:40)
[2021-03-11 19:01] LABS: Influenza A virus by PCR Negative (Neg); Influenza B virus by PCR Negative (Neg); RSV by PCR Negative (Neg); SARS CoV2 RNA(COVID-19)Cepheid NEGATIVE (Negative)
[2021-03-11] MEDS ORDERED: HYDROmorphone INJ 1 MG/ML SYRINGE IV STA (19:53)
[2021-03-11] MEDS ORDERED: WARFARIN SOD 7.5 MG TAB PO ONE (20:27)
[2021-03-11] MEDS ORDERED: HEPARIN SODIUM/DEXTROSE 25,000 UNITS/500 ML BAG IV SCH (20:42)
[2021-03-11] MEDS ORDERED: Heparin IV Adult Wt-Based Standard *NO* Bolus Protocol IV SCH (20:45)
[2021-03-11] MEDS ORDERED: OPTIRAY 350 500ml IV ONE (20:48)
[2021-03-11] MEDS ORDERED: Heparin IV Adult Wt-Based Standard *NO* Bolus Protocol IV STA (22:06)
[2021-03-11] MEDS ORDERED: WARFARIN SOD 7.5 MG TAB PO STA (22:07)
[2021-03-11] MEDS: HEPARIN SODIUM/DEXTROSE 25,000 UNITS/500 ML BAG IV SCH (22:44)
--- NOTE | 2021-03-11 22:51 | History & Physical Report ---
Date of Service March 11, 2021 Assessment & Plan (1) SOB (shortness of breath): With weight gain ? Right-sided heart failure given normal BNP and clear chest x-ray (Of note, no pulmonary hypertension on TTE from 2019) hx congenital bicuspid aortic valve, ascending aortic dissection status post surgery, chronic dissection on CT initial read mechanical AVR on Coumadin, INR slightly subtherapeutic chronic LBBB Complicated UTI, no sepsis hypertension, stable past tobacco abuse. PCU Diuretic Rx, fluid restriction for now Update TTE Cardiology consult Re: Fluid retention, possible right-sided CHF IV HeparinCoumadin bridge for subtherapeutic INR, history of mechanical AVR Follow urine CS, cefepime DVT prophylaxis. IV heparinCoumadin bridge, INR goal between 2 and 3 Full code Text document was generated using Sekoia voice recognition software. It may contain grammatical or spelling errors. Kindly contact undersigned for clarification of any documentation item in question. History of Present Illness Chief Complaint: Chest pain/back pain, shortness of breath, leg swelling, weight gain Primary Care Provider: Brian Guido MD History obtained from patient and records. Medical history significant for congenital bicuspid aortic valve, ascending aortic dissection status post surgery, mechanical AVR on Coumadin, chronic LBBB, hypertension, hyperlipidemia, past tobacco abuse. Last confinement December 2019 for intractable abdominal pain secondary to abdominal wall hernia. Patient transferred to [facility]. Subsequent hernia repair done. Patient woke up this morning with transient achy chest tightness and mid back pain with shortness of breath. No cough symptoms. Legs noted more swollen than usual. 8 pound weight gain in the last week. Denies dietary indiscretion. Denies OTC NSAID intake. Not on any fluid restriction at home. Unaware of snoring. No fever, no chills. No response to extra Lasix intake at home. Lasix and Ceftriaxone administered at the ER for CHF and UTI respectively. MEDICAL HISTORY: As above. SURGERIES: Aortic valve replacement, cholecystectomy, hypospadias surgery, aorta surgery, aortic valve replacement surgery with coronary reimplantation, left subclavian bypass, hernia repair/laparotomy, appendectomy, cholecystectomy FAMILY HISTORY: Heart disease. PERSONAL AND SOCIAL HISTORY: Past tobacco use. No chronic intake of alcoholic beverages. Currently unemployed. Allergies Allergy/AdvReac Type Severity Reaction Status Date / Time No Known Allergies Allergy Verified 03/11/21 15:15 Home Medications Medication Instructions Recorded Confirmed Type amlodipine 5 mg PO BID 11/12/18 03/11/21 History clopidogrel 75 mg PO QAM 11/12/18 03/11/21 History duloxetine 60 mg PO QAM 11/12/18 03/11/21 History losartan 100 mg PO QAM 11/12/18 03/11/21 History warfarin 5 mg PO UD 12/06/19 03/11/21 History duloxetine 30 mg PO QAM 03/11/21 03/11/21 History furosemide 40 mg PO DAILY PRN 03/11/21 03/11/21 History hydrochlorothiazide 25 mg PO QAM 03/11/21 03/11/21 History metoprolol succinate 100 mg PO DAILY 03/11/21 03/11/21 History potassium chloride 20 meq PO DAILY PRN 03/11/21 03/11/21 History Past Med/Surg History Medical History (Updated 03/12/21 @ 04:20 by Wagner Hicks MD) Amaurosis fugax of right eye Anticoagulated on Coumadin Anxiety Aortic dissection Per Clarence Hernandez PA-C progress note from 04/08/18 " Type 1 aortic dissection, 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 3.Status post emergent aortic valve and root replacement with [employer] mechanical valve and conduit size 27 along with coronary reimplantation. 4.Post discharge course complicated by cardiac tamponade requiring left thoracotomy, pericardial window on 07/29/14. 5.Patient status post 05/29/2015 redo sternotomy, left carotid subclavian bypass, right axillary cannulation with an 8 mm graft, arch replacement with a 30 mm branched Dacron graft, ligation of left subclavian artery, arch debranching with individual anastomoses to the right subclavian, right carotid, and left carotid arteries." Chronic systolic (congestive) heart failure Congenital bicuspid aortic valve DDD (degenerative disc disease), lumbar HLD (hyperlipidemia) HTN (hypertension) Surgical History H/O exploratory laparotomy H/O mechanical aortic valve replacement [facility] 27 along with coronary reimplantation 07/2014 History of ERCP S/P AAA repair "07/15/2014 REPAIR AORTA WITH CARDIOPULMONARY BYPASS performed by Timbo Heredia MD at [facility] Persistent aortic dissection with resultant repeat surgery on 05/27/2015 for arch repair." S/P cholecystectomy S/P ERCP (06/08/14) Family History Mother Alive and well Father Alive and well Grandfather (Maternal) Coronary heart disease T2DM (type 2 diabetes mellitus) Grandmother (Maternal) T2DM (type 2 diabetes mellitus) Coronary heart disease Other No family history of kidney disease Social History Smoking Status: Former smoker Years Smoked: 12; Cigarettes Per Day: 1; Second Hand Exposure: No; Tobacco Cessation Education Requested by Patient: No Hx Alcohol Use: Yes Alcohol type: beer Hx Substance Use: No Preferred Language: Turkmen Communication Ability: Effective Etcher Hand Required: No Beliefs That Will Affect Care: None Current Living Situation: Family Current Living Situation Comment: Dad lives with patient Other Information That Helps Us Care for You: No Feels Safe at Home: Yes Safety Concerns: Feels Safe At This Time Assistive Devices: None Review of Systems Review of Systems: As per HPI, all 10 systems reviewed, all other ROS negative Physical Exam Physical Exam: GENERAL: Comfortable, morbidly obese, no respiratory distress SKIN: Normal color, warm HEENT: [place] palpebral conjunctivae, no ptosis, dry buccal mucosa NECK : Supple, short neck, no tenderness CHEST : CTA, no tenderness HEART : RRR, mechanical murmur ABDOMEN: Some distention, nontender EXTREMITIES : Bilateral LE swelling, no LE tenderness, no other conspicuous deformities noted NEUROLOGIC : Coherent, no facial asymmetry, no other gross focality Results & Data Results & Data ([facility]) Vital Signs (Past 12 Hours) Vital Signs Temp Pulse Pulse Resp BP BP Pulse Ox 03/11/21 22:36 68 18 104/59 L 98 03/11/21 21:01 83 18 165/76 H 100 03/11/21 17:44 67 18 111/61 95 03/11/21 15:57 67 20 111/53 L 92 03/11/21 14:23 36.4 C L 76 16 127/71 96 Laboratory Results Laboratory Results WBC 4.60 K/uL (4.8-10.8) L 03/11/21 14:54 RBC 4.01 M/uL (4.7-6.1) L 03/11/21 14:54 Hgb 12.1 g/dL (14.0-18.0) L 03/11/21 14:54 Hct 36.5 % (42-52) L 03/11/21 14:54 MCV 91.0 fL (80-100) 03/11/21 14:54 MCH 30.2 pg (25-34) 03/11/21 14:54 MCHC 33.2 g/dL (32-36) 03/11/21 14:54 RDW Std Deviation 44.0 fL (36.4-46.3) 03/11/21 14:54 RDW Coeff of Levon 13.1 % (11.5-14.5) 03/11/21 14:54 Plt Count 264 K/uL (130-400) 03/11/21 14:54 MPV 9.7 fL (7.4-10.4) 03/11/21 14:54 Immature Gran % (Auto) 0.0 % 03/11/21 14:54 Neut % (Auto) 60.5 % 03/11/21 14:54 Lymph % (Auto) 26.3 % 03/11/21 14:54 Jack % (Auto) 8.9 % 03/11/21 14:54 Eos % (Auto) 4.1 % 03/11/21 14:54 Baso % (Auto) 0.2 % 03/11/21 14:54 Neut # (Auto) 2.78 K/uL (1.4-6.5) 03/11/21 14:54 Lymph # (Auto) 1.21 K/uL (1.2-3.4) 03/11/21 14:54 Jack # (Auto) 0.41 K/uL (0.11-0.59) 03/11/21 14:54 Eos # (Auto) 0.19 K/uL (0-0.5) 03/11/21 14:54 Baso # (Auto) 0.01 K/uL (0-0.2) 03/11/21 14:54 Immature Gran # (Auto) 0.00 K/uL (0.00-0.02) 03/11/21 14:54 PT 17.1 Seconds (9.0-12.0) H 03/11/21 14:54 INR 1.8 (0.9-1.1) H 03/11/21 14:54 APTT 32.9 Seconds (21.0-31.0) H 03/11/21 14:54 PTT Ratio 1.3 03/11/21 14:54 Sodium 138 mmol/L (136-145) 03/11/21 14:54 Potassium 3.7 mmol/L (3.5-5.1) 03/11/21 14:54 Chloride 101 mmol/L (98-107) 03/11/21 14:54 Carbon Dioxide 31 mmol/L (21-32) 03/11/21 14:54 Anion Gap 6.0 (3-11) 03/11/21 14:54 BUN 20 mg/dl (7-18) H 03/11/21 14:54 Creatinine 0.86 mg/dl (0.6-1.4) 03/11/21 14:54 Est Cr Clr Drug Dosing 194.0 ml/min 03/11/21 14:54 Est GFR ( Amer) 131.1 03/11/21 14:54 Est GFR (Non-Af Amer) 113.1 03/11/21 14:54 BUN/Creatinine Ratio 22.7 (10-20) H 03/11/21 14:54 Glucose 95 mg/dl (70-99) 03/11/21 14:54 Calcium 8.9 mg/dl (8.5-10.1) 03/11/21 14:54 Magnesium 2.0 mg/dl (1.8-2.4) 03/11/21 14:54 Total Bilirubin 0.7 mg/dl (0.2-1) 03/11/21 14:54 AST 37 U/L (15-37) 03/11/21 14:54 ALT 41 U/L (12-78) 03/11/21 14:54 Alkaline Phosphatase 75 U/L (45-117) 03/11/21 14:54 Troponin I < 0.015 ng/ml (0-0.045) 03/11/21 14:54 NT-Pro-B Natriuret Pep 135 pg/ml (0-450) 03/11/21 14:54 Total Protein 7.8 gm/dl (6.4-8.2) 03/11/21 14:54 Albumin 3.5 gm/dl (3.4-5.0) 03/11/21 14:54 Globulin 4.3 gm/dl (2.5-4.0) H 03/11/21 14:54 Albumin/Globulin Ratio 0.8 (0.9-2) L 03/11/21 14:54 Lipase 77 U/L (73-393) 03/11/21 14:54 TSH 2.120 uIu/ml (0.300-4.500) 03/11/21 14:54 Urine Color Yellow 03/11/21 14:55 Urine Appearance Cloudy (Clear) A 03/11/21 14:55 Urine pH 5.5 (4.5-7.5) 03/11/21 14:55 Ur Specific Hancock 1.020 (1.000-1.030) 03/11/21 14:55 Urine Protein 1+ (Negative) H 03/11/21 14:55 Urine Glucose (UA) Negative (Negative) 03/11/21 14:55 Urine Ketones Negative (Negative) 03/11/21 14:55 Urine Blood Negative (Negative) 03/11/21 14:55 Urine Nitrite Positive (Negative) A 03/11/21 14:55 Urine Bilirubin Negative (Negative) 03/11/21 14:55 Urine Urobilinogen Negative (Negative) 03/11/21 14:55 Ur Leukocyte Esterase Trace (Negative) H 03/11/21 14:55 Urine WBC (Auto) 10-30 /hpf (0-5) H 03/11/21 14:55 Urine RBC (Auto) 0-4 /hpf (0-4) 03/11/21 14:55 U Hyaline Cast (Auto) 5-10 /lpf (0-5) H 03/11/21 14:55 U Epithel Cells (Auto) 10-20 /lpf (0-5) H 03/11/21 14:55 Urine Bacteria (Auto) 3+ (Negative) H 03/11/21 14:55 COVID-19 Eval Order CovFluRsv at [facility] 03/11/21 18:15 SARS-CoV-2 (PCR) NEGATIVE (Negative) 03/11/21 18:15 Influenza Type A (PCR) Negative (Neg) 03/11/21 18:15 Influenza Type B (PCR) Negative (Neg) 03/11/21 18:15 RSV (RT-PCR) Negative (Neg) 03/11/21 18:15 Impressions Chest X-Ray 03/11/21 14:47 SINGLE VIEW CHEST CLINICAL HISTORY: Atypical chest pain. FINDINGS: 2 AP, portable, upright chest radiographs are compared to study dated 11/13/2018 and correlated with chest CT dated 12/28/2019. The patient is status post midline sternotomy and cardiac valve surgery. The heart is enlarged. The pulmonary vasculature is noncongested. There is mild bibasilar atelectasis. No airspace consolidation or large pleural effusion is identified. No pneumothorax is seen. The bony thorax is grossly intact. Surgical clips project over the right apex. IMPRESSION: Cardiomegaly with no acute cardiopulmonary abnormality. ACT 112: Negative or not required by law. Electronically signed by: Ramiro Escalera M.D. 03/11/2021 3:28 PM Abdomen/Pelvis CT 03/11/21 16:20 CT SCAN OF THE ABDOMEN AND PELVIS WITHOUT IV CONTRAST CLINICAL HISTORY: Generalized abdominal pain. Low back pain. COMPARISON STUDY: Multiple prior abdominal CT scans, most recently dated 10/31/2020. TECHNIQUE: CT scan of the abdomen and pelvis is performed from the lung bases to the proximal femora. Images are reviewed in the axial, sagittal, and coronal planes. IV contrast was not administered for this examination. Note that the examination was performed in suboptimal fashion without oral and IV contrast. A dose lowering technique was utilized adhering to the principles of ALARA. The examination is degraded by large body habitus, and by streak artifact from the body wall abutting the CT gantry. CT DOSE: 2263.03 mGy.cm FINDINGS: Lung bases: The patient is status post midline sternotomy and aortic valve surgery. The heart is top normal in size and without pericardial effusion. The lung bases are clear noting mild bibasilar atelectasis. Liver: The unenhanced liver is normal in size, contour, and attenuation. There is no intrahepatic biliary ductal dilatation. Gallbladder: Surgically absent noting clips in the gallbladder fossa. Spleen: Normal in size and attenuation. Pancreas: Unremarkable. Adrenal glands: Unremarkable. Kidneys: The unenhanced kidneys are normal in size and without hydronephrosis. There are no renal calculi identified. There is no evidence of contour deforming renal mass lesion. Abdominal vasculature: The abdominal aorta is normal in course and caliber. A midline surgical scar is noted. There is evidence of previous ventral hernia repair. Bowel: There is no bowel obstruction. Mild/moderate fecal retention is seen throughout the colon. The appendix is not identified and reported surgically absent. Peritoneum: There is no intraperitoneal free air or abdominal ascites. Lymphadenopathy: None. Pelvic viscera: The prostate gland is diminutive and heterogeneous. The bladder is mildly distended and otherwise unremarkable. The seminal vesicles are normal. Skeletal structures: No lytic or blastic lesions are seen. There is moderate disc space narrowing at L5-S1 with a posterior disc osteophyte complex at this level. Mild sclerotic change is noted in the sacroiliac joints. IMPRESSION: There are no acute infectious or inflammatory findings in the abdomen or pelvis. ACT 112: Negative or not required by law. Electronically signed by: Ramiro Escalera M.D. 03/11/2021 5:[address] chest initial read: No acute pulmonary embolism. Evidence of ascending aorta repair. Chronic dissection flap in the aortic arch and descending thoracic aorta as per teleradiologist. Mild splenomegaly. EKG as per my interpretation rate 75, NSR, LAD, LAFB, LBBB Code Status & VTE Plan VTE Prophylaxis Plan VTE Prophylaxis will be ordered: Yes
[2021-03-11] MEDS ORDERED: ACETAMINOPHEN 325 MG TAB PO PRN (23:08)
[2021-03-11] MEDS ORDERED: PROMETHAZINE HCL 12.5 MG in SODIUM CHLORIDE 0.9% 50 ML IV PRN (23:08)
[2021-03-11] MEDS ORDERED: ALBUMIN 25% 12.5 GM/50 ML VIAL IV ONE (23:15)
--- NOTE | 2021-03-11 23:20 | Ultrasound Report ---
ULTRASOUND BILATERAL LOWER EXTREMITY VENOUS CLINICAL HISTORY: Lower extremity edema. COMPARISON STUDY: Right lower extremity venous ultrasound dated 07/28/2014. TECHNIQUE: Real-time, grayscale, and color Doppler sonography of the deep veins of the right and left lower extremity was performed from the inguinal crease to the calf. Compression and augmentation wer e utilized. FINDINGS: There is no sonographic evidence of deep venous thrombosis identified in the right or left lower extremity. The common femoral, superficial femoral, and popliteal veins are patent and normally compressible bilaterally. The greater saphenous vein and the profunda femoris vein at the junction w ith the common femoral vein are clear in both legs. The visualized calf veins are patent bilaterally. IMPRESSION: There is no sonographic evidence of deep venous thrombosis identified in the right or lef t lower extremity. ACT 112: Negative or not required by law. Electronically signed by: Ramiro Escalera M.D. 03/11/2021 11:19 PM
[2021-03-11] MEDS: amLODIPine BESYLATE 5 MG TAB PO SCH (23:50)
[2021-03-11] MEDS: POTASSIUM CHLORIDE CRTAB 20 MEQ TABCR PO SCH (23:51)
[2021-03-12] MEDS: HYDROmorphone INJ 1 MG/ML SYRINGE IV PRN ×2 (00:04→05:32)
[2021-03-12 05:55] LABS: Basophils # (auto) 0.01 K/uL (0-0.2); Basophils % (auto) 0.2 %; Eosinophils # (auto) 0.18 K/uL (0-0.5); Eosinophils % (auto) 4.1 %; Hematocrit (blood only) 34.9 % (42-52); Hemoglobin 11.5 g/dL (14.0-18.0); Lymphocytes # (auto) 1.64 K/uL (1.2-3.4); Lymphocytes % (auto) 37.1 %; Mean Corpuscular Hemoglobin 29.4 pg (25-34); Mean Corpuscular Volume 89.3 fL (80-100); Mean Platelet Volume 9.7 fL (7.4-10.4); Monocytes # (auto) 0.37 K/uL (0.11-0.59); Monocytes % (auto) 8.4 %; Neutrophils # (auto) 2.22 K/uL (1.4-6.5); Neutrophils % (auto) 50.2 %; Platelet Count 233 K/uL (130-400); RDW Coefficient of Variation 13.3 % (11.5-14.5); RDW Standard Deviation 43.6 fL (36.4-46.3); Red Blood Count 3.91 M/uL (4.7-6.1); White Blood Count 4.42 K/uL (4.8-10.8)
[2021-03-12 06:11] LABS: INR 1.9 (0.9-1.1); Partial Thromboplastin Ratio 3.1; Prothrombin Time 18.5 Seconds (9.0-12.0)
[2021-03-12 06:42] LABS: BUN Creatinine Ratio 19.2 (10-20); Blood Urea Nitrogen 13 mg/dl (7-18); Calcium 9.2 mg/dl (8.5-10.1); Carbon Dioxide 33 mmol/L (21-32); Chloride 99 mmol/L (98-107); Creatinine Clr Calc Pharmacy 253.6 ml/min; Est GFR (African American) 144.4; Est GFR (Non-African American) 124.6; Glucose 99 mg/dl (70-99); Potassium 3.4 mmol/L (3.5-5.1); Sodium 137 mmol/L (136-145)
[2021-03-12 06:46] LABS: Partial Thromboplastin Time 82.4 Seconds (21.0-31.0); Troponin I < 0.015 ng/ml (0-0.045)
--- NOTE | 2021-03-12 07:17 | CT Scan Report ---
CT angio chest dissec wo/w con, CT abd pelvis IV con only HISTORY: 35 years-old Male chest pain/back pain acute chest and abdominal pain. Prior median sternot anabel with aortic valve replacement and thoracic aortic dissection COMPARISON: CT abdomen pelvis 03/11/2021, 10/31/2020, CTA chest 12/28/2019 TECHNIQUE: CTA of the chest was obtained both with and without the use of 120 mL Optiray 320. 3-D cor onal and sagittal MIPS were obtained from the axial data set and were submitted for review. All measu rements were obtained according to NASCET criteria. CT abdomen pelvis with IV contrast also obtained. FINDINGS: CTA CHEST: The heart is mildly enlarged. No pericardial effusion. Prior median sternotomy with prosthetic aortic valve. Postoperative changes of the ascending thoracic aorta and proximal great arteries are unchang ed. Chronic type A dissection of the thoracic aorta which is again noted involving the origin of the left subclavian artery extending into the descending thoracic and abdominal aorta. Both the true and false lumen opacify. No intramural hematoma. The opacified pulmonary artery appears normal. CT CHEST: Unremarkable thyroid. Nonspecific mild paratracheal adenopathy measures up to 11 mm in short axis. No pneumothorax, pleural effusion, airspace consolidation or overt pulmonary edema. No suspicious pulmo nary nodules or masses. The central airways are patent. Unremarkable soft tissues. There is no acute fracture. CT ABDOMEN/PELVIS: No pneumatosis or pneumoperitoneum. The spleen, pancreas, adrenal glands and liver appear unremarkabl e. Cholecystectomy. Unremarkable kidneys. No urolith or obstructive uropathy identified. Unremarkable urinary bladder. Limited evaluation of the aorta secondary to phase of contrast. Descending thoracic aortic dissection with extension into the right common iliac artery redemonstrated. Both lumens opac bandar. No adenopathy. No bowel obstruction or bowel wall thickening. Appendectomy. Postoperative changes of the abdominal w all. No acute fracture. Moderate intervertebral disc space narrowing with posterior disc osteophyte c omplex formation and facet arthrosis at L5-S1. IMPRESSION: 1. Unchanged appearance of the chronic type A aortic dissection as described above. 2. Prior median sternotomy with prosthetic aortic valve and chronic postoperative changes of the asce nding thoracic aorta. 3. No acute intrathoracic, intra-abdominal or intrapelvic abnormality. ACT 112: Negative or not required by law. The above report was generated using voice recognition software. It may contain grammatical, syntax o r spelling errors. Electronically signed by: Celestine Delgado M.D. 03/12/2021 7:16 AM
[2021-03-12] MEDS: oxyCODONE HCL IR 5 MG TAB (IMMEDIATE RELEASE) PO PRN ×3 (07:35→20:23)
[2021-03-12] MEDS: LOSARTAN POTASSIUM 50 MG TAB PO SCH (08:29)
[2021-03-12] MEDS: DULoxetine HCL 60 MG CAP PO SCH (08:29)
[2021-03-12] MEDS: POTASSIUM CHLORIDE CRTAB 20 MEQ TABCR PO SCH ×2 (08:29→17:39)
[2021-03-12] MEDS: METOPROLOL SUCC 50MG EXT REL TAB PO SCH (08:29)
[2021-03-12] MEDS: amLODIPine BESYLATE 5 MG TAB PO SCH ×2 (08:30→20:03)
[2021-03-12] MEDS: CLOPIDOGREL BISULFATE 75 MG TAB PO SCH (08:30)
[2021-03-12] MEDS: DULoxetine HCL 30 MG CAP PO SCH (08:30)
--- NOTE | 2021-03-12 08:51 | Cardiology Consultation ---
Date of Consultation March 12, 2021 Assessment & Plan (1) Acute heart failure with preserved ejection fraction (HFpEF): EKG reveals sinus rhythm at 74 bpm with left bundle branch block, first-degree AV block, HI interval 202 ms, QRS duration 158 ms., This is unchanged compared to his prior. Troponins are negative. Echocardiogram performed today reviewed independently reveals abnormal septal motion consistent with left bundle branch block, with normal LV wall motion otherwise, qualitative LVEF in the range of 55 to 60%. The gradients across the mechanical aortic valve prosthesis with no significant aortic valve regurgitation. Diastolic dysfunction is present, but difficult to grade due to technical limitations in the Doppler assessment. Echo relatively unchanged compared to previous dating back to 2019. CT angiogram revealed unchanged appearance of the chronic type a aortic dissection originating just distal to the left subclavian artery and extending to the descending thoracic and abdominal aorta. Findings stable compared to previous CT scans in 2019 and 2020. Patient presents with acute volume overload. Agree with furosemide 40 mg IV twice daily. Supplement potassium, and start low-dose spironolactone for diuretic, blood pressure, and potassium support. Patient is on chronic Coumadin given his history of mechanical aortic valve replacement. Presenting INR was 1.8, increased to 1.9 this morning, continue heparin bridge, Coumadin, goal INR 23. History of Present Illness Attending Physician: Vadim Correa MD History of Present Illness Deep Fong is a 35 year old male seen in cardiology consultation per the request of Dr Hicks for evaluation of shortness of breath with fluid retention. The patient's primary heel seat trimmer is Dr Dupont. He describes that he is prescribed furosemide on an as-needed basis and he has not taken this recently in months. He states typically he has been feeling well, and his INR has stayed at goal from 2-3. He notes feeling ill at 3 AM early Friday morning and noticed that his feet were swollen as well as his lower legs. He had low back pain, and then felt wheezing and chest tightness. Thus far after receiving IV furosemide, 2 L of urine output has occurred, he still has some degree of residual lower extremity swelling, but he feels much improved. Problem List: 1.Congenitally bicuspid aortic valve. 2.Type 1 aortic dissection, 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 3.Status post emergent aortic valve and root replacement with St Brant's mechanical valve and conduit size 27 along with coronary reimplantation. 4.Post discharge course complicated by cardiac tamponade requiring left thoracotomy, pericardial window on 07/29/14. 5.Patient status post 05/29/2015 redo sternotomy, left carotid subclavian bypass, right axillary cannulation with an 8 mm graft, arch replacement with a 30 mm branched Dacron graft, ligation of left subclavian artery, arch debranching with individual anastomoses to the right subclavian, right carotid, and left carotid arteries. 6.Hypertension 7.Dyslipidemia 8.Left bundle branch block 9.Zio patch monitor reported as sinus pause up to 4 seconds 10.Anxiety. 11.Lumbar DDD. 12.Hospitalization at [facility] 12/29/2019 to 01/07/2020 with severe abdominal pain associated with nausea and poor appetite. Patient found to have incarcerated ventral hernia, undergoing exploratory laparotomy with reduction of an incarcerated ventral hernia, appendectomy, bilateral posterior separation components release with placement submuscular mesh, and application prevena wound VAC after reversal of his supratheurapetic INR Allergies Allergy/AdvReac Type Severity Reaction Status Date / Time No Known Allergies Allergy Verified 03/11/21 15:15 Home Medications Medication Instructions Recorded Confirmed Type amlodipine 5 mg PO BID 11/12/18 03/11/21 History clopidogrel 75 mg PO QAM 11/12/18 03/11/21 History duloxetine 60 mg PO QAM 11/12/18 03/11/21 History losartan 100 mg PO QAM 11/12/18 03/11/21 History warfarin 5 mg PO UD 12/06/19 03/11/21 History duloxetine 30 mg PO QAM 03/11/21 03/11/21 History furosemide 40 mg PO DAILY PRN 03/11/21 03/11/21 History hydrochlorothiazide 25 mg PO QAM 03/11/21 03/11/21 History metoprolol succinate 100 mg PO DAILY 03/11/21 03/11/21 History potassium chloride 20 meq PO DAILY PRN 03/11/21 03/11/21 History Patient History Medical History (Updated 03/12/21 @ 14:08 by Bishop Garcia DO) Amaurosis fugax of right eye Anticoagulated on Coumadin Anxiety Aortic dissection Per Clarence Hernandez PA-C progress note from 04/08/18 " Type 1 aortic dissection, 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 3.Status post emergent aortic valve and root replacement with St Brant's mechanical valve and conduit size 27 along with coronary reimplantation. 4.Post discharge course complicated by cardiac tamponade requiring left thoracotomy, pericardial window on 07/29/14. 5.Patient status post 05/29/2015 redo sternotomy, left carotid subclavian bypass, right axillary cannulation with an 8 mm graft, arch replacement with a 30 mm branched Dacron graft, ligation of left subclavian artery, arch debranching with individual anastomoses to the right subclavian, right carotid, and left carotid arteries." Chronic systolic (congestive) heart failure Congenital bicuspid aortic valve DDD (degenerative disc disease), lumbar HLD (hyperlipidemia) HTN (hypertension) Surgical History H/O exploratory laparotomy H/O mechanical aortic valve replacement s/p St. Judes mech valve and conduit size 27 along with coronary reimplantation 07/2014 History of ERCP S/P AAA repair "07/15/2014 REPAIR AORTA WITH CARDIOPULMONARY BYPASS performed by Timbo Heredia MD at [facility] Persistent aortic dissection with resultant repeat surgery on 05/27/2015 for arch repair." S/P cholecystectomy S/P ERCP (06/08/14) Family History Mother Alive and well Father Alive and well Grandfather (Maternal) Coronary heart disease T2DM (type 2 diabetes mellitus) Grandmother (Maternal) T2DM (type 2 diabetes mellitus) Coronary heart disease Other No family history of kidney disease Social History Smoking Status: Former smoker Years Smoked: 12; Cigarettes Per Day: 1; Second Hand Exposure: No; Tobacco Cessation Education Requested by Patient: No Hx Alcohol Use: Yes Alcohol type: beer Hx Substance Use: No Preferred Language: Divehi Communication Ability: Effective Patrol Judge Required: No Beliefs That Will Affect Care: None Current Living Situation: Family Current Living Situation Comment: Dad lives with patient Other Information That Helps Us Care for You: No Feels Safe at Home: Yes Safety Concerns: Feels Safe At This Time Assistive Devices: None Review of Systems Review of Systems: All systems reviewed & are unremarkable except as noted in HPI & below Physical Exam Physical Exam: Temp Pulse Resp BP Pulse Ox 36.5 C 86 18 146/77 H 96 03/12/21 11:44 03/12/21 11:44 03/12/21 11:44 03/12/21 11:44 03/12/21 11:44 Constitutional: WD/WN, vitals as above Respiratory: does not use accessory muscles, no cough and not tachypneic Auscultation: + diminished lung sounds (Mildly decreased breath sounds the bases); no crackles Cardiovascular: Rate/Rhythm: regular rhythm Heart Sounds: no murmur Vessels: no JVD Extremities: + edema (1+ pedal, 1+ lower extremity edema bilaterally) Gastrointestinal (Abdomen): normal bowel sounds, soft, nontender, no hepatosplenomegaly Neurologic: PERRL, EOMI, accommodation nl, no face palsy, no dysarthria Results & Data ([facility]) Vital Signs (Past 12 Hours) Vital Signs Temp Pulse Resp BP Pulse Ox Pulse Ox 03/12/21 05:30 76 136/70 03/12/21 04:00 36.6 C 80 18 122/72 94 03/12/21 00:00 94 03/11/21 23:14 36.7 C 94 H 18 132/73 96 03/11/21 23:08 96 03/11/21 22:36 68 18 104/59 L 98 03/11/21 21:01 83 18 165/76 H 100
[2021-03-12] MEDS ORDERED: FUROSEMIDE 40 MG/4 ML VIAL IV SCH (09:00)
[2021-03-12] MEDS: FUROSEMIDE 40 MG in SYRINGE 0 ML IV SCH ×2 (09:40→17:36)
[2021-03-12] MEDS: HEPARIN SODIUM/DEXTROSE 25,000 UNITS/500 ML BAG IV SCH ×2 (09:44→22:56)
[2021-03-12] MEDS ORDERED: ACETAMINOPHEN 1000 MG/100 ML IV IV PRN (09:47)
[2021-03-12] MEDS: ACETAMINOPHEN 1,000 MG/100 ML VIAL IV PRN ×2 (10:23→17:32)
[2021-03-12 13:22] LABS: Partial Thromboplastin Ratio 2.9
[2021-03-12 13:28] LABS: Partial Thromboplastin Time 76.9 Seconds (21.0-31.0)
--- NOTE | 2021-03-12 15:20 | Hospitalist Progress Note ---
Date of Service March 12, 2021 Assessment & Plan (1) SOB (shortness of breath): Acute heart failure with preserved ejection fraction With weight gain and bilateral leg swelling Echo showed abnormal septal motion consistent with LBBB, EF was 55 to 60%, diastolic dysfunction, prosthetic aortic valve without any stenosis.No significant change compared with echo of 2019 Appreciate cardiology input and recommendation We will continue current doses of Lasix Status post mechanical aortic valve replacement congenital bicuspid aortic valve, ascending aortic dissection status post surgery, chronic dissection on CT initial read On Coumadin with subtherapeutic INR. Heparin added Denies any chest pain and/or palpitation Complicated UTI, no sepsis Received 1 dose of ceftriaxone in the emergency room and will continue that from today Urine culture is growing gram-negative bacilli-await further sensitivity Hypertension, stable past tobacco abuse. DVT prophylaxis. IV heparinCoumadin bridge, INR goal between 2 and 3 Full code Admission and Anticipated Discharge Date Admission Date: March 11, 2021 Subjective 03/12/2021 The patient was seen and examined in telemetry unit He is only 35-year-old male with significant complicated past cardiac history was admitted with Increasing shortness of breath with weight gain and leg swelling and also ch est/back pain Pain is reasonably controlled and he does not want to take too much narcotics Wanted to have intravenous Tylenol to see if it helps Denies any chest pain and or palpitation during examination Review of Systems Review of Systems: All systems reviewed and are unremarkable as noted below Cardiovascular: + edema; no chest pain and no palpitations Musculoskeletal: Bilateral lower back pain Physical Exam Physical Exam: Lying in bed comfortably Constitutional: well developed, well nourished, + ill appearing and + obese Eyes: PERRL, conjunctivae normal, anicteric sclerae ENMT: external ear and nose normal, oropharynx normal Neck: trachea midline, no thyromegaly Respiratory: no respiratory distress Auscultation: + diminished lung sounds and + crackles (Minimal crackles at the bases) Cardiovascular: Rate/Rhythm: regular rate and regular rhythm Heart Sounds: + murmur (2/6 ESM over precordium with prosthetic valve sound) Extremities: + edema (2+ edema bilaterally) Gastrointestinal (Abdomen): Inspection/Auscultation: + abdomen distended and normal bowel sounds Percussion/Palpation: abdomen soft; abdomen nontender Musculoskeletal: No acute arthritis in any joint Neurologic: Alert, awake and oriented x3 Lymphatic: no cervical or axillary lymphadenopathy Results & Data Results & Data ([facility]) Vital Signs (Past 12 Hours) Vital Signs Temp Pulse Pulse Resp BP Pulse Ox 03/12/21 11:44 36.5 C 86 18 146/77 H 96 03/12/21 08:00 73 03/12/21 07:50 36.7 C 78 18 144/75 H 95 03/12/21 05:30 76 136/70 03/12/21 04:00 36.6 C 80 18 122/72 94 Laboratory Results Short CBC 03/12/21 Range/Units 05:32 WBC 4.42 L (4.8-10.8) K/uL Hgb 11.5 L (14.0-18.0) g/dL Hct 34.9 L (42-52) % Plt Count 233 (130-400) K/uL BMP 03/11/21 03/12/21 14:54 05:32 Sodium 138 137 Potassium 3.7 3.4 L Chloride 101 99 Carbon Dioxide 31 33 H BUN 20 H 13 Creatinine 0.86 0.68 Glucose 95 99 Calcium 8.9 9.2 Cardiac Enzymes 03/11/21 03/12/21 Range/Units 14:54 05:32 Troponin I < 0.015 < 0.015 (0-0.045) ng/ml Liver Function 03/11/21 Range/Units 14:54 Total Bilirubin 0.7 (0.2-1) mg/dl AST 37 (15-37) U/L ALT 41 (12-78) U/L Alkaline Phosphatase 75 (45-117) U/L Albumin 3.5 (3.4-5.0) gm/dl Urine 03/11/21 Range/Units 14:55 Urine Color Yellow Urine Appearance Cloudy A (Clear) Urine pH 5.5 (4.5-7.5) Ur Specific [place] 1.020 (1.000-1.030) Urine Protein 1+ H (Negative) Urine Glucose (UA) Negative (Negative) Medications Administered Current Inpatient Medications Acetaminophen (Acetaminophen 325 Mg Tab) 650 mg PO Q4H PRN PRN Reason: Pain or Fever Stop: 04/10/21 23:07 Last Admin: 03/12/21 00:03 Dose: 650 mg Documented by: Amlodipine Besylate (Amlodipine Besylate 5 Mg Tab) 5 mg PO BID [facility] Stop: 04/10/21 23:07 Last Admin: 03/12/21 08:30 Dose: 5 mg Documented by: Clopidogrel Bisulfate (Clopidogrel Bisulfate 75 Mg Tab) [facility] Stop: 04/11/21 08:59 Last Admin: 03/12/21 08:30 Dose: 75 mg Documented by: Duloxetine HCl (Duloxetine Hcl 30 Mg Cap) 30 mg PO [facility] Stop: 04/11/21 08:59 Last Admin: 03/12/21 08:30 Dose: 30 mg Documented by: Duloxetine HCl (Duloxetine Hcl 60 Mg Cap) 60 mg PO [facility] Stop: 04/11/21 08:59 Last Admin: 03/12/21 08:29 Dose: 60 mg Documented by: Hydromorphone HCl (Hydromorphone Inj 1 Mg/Ml Syringe) 1 mg IV Q4H PRN PRN Reason: Pain Stop: 03/25/21 23:07 Last Admin: 03/12/21 05:32 Dose: 1 mg Documented by: Heparin Sodium/Dextrose (Heparin Sodium/Dextrose) 25,000 units in 500 mls @ 37 mls/hr IV .[id number] [facility]; Protocol Stop: 04/10/21 22:07 Last Titration: 03/12/21 15:05 Dose: 1,850 units/hr, 37 mls/hr Documented by: Promethazine HCl 12.5 mg/ (Sodium Chloride) 50.5 mls @ 202 mls/hr IV Q6H PRN PRN Reason: Nausea And Vomiting Stop: 04/10/21 23:07 Furosemide 40 mg/ Syringe 4 mls @ 4 mls/min IV [id number] [facility] Stop: 03/12/21 17:00 Last Admin: 03/12/21 09:40 Dose: 4 mls/min Documented by: Acetaminophen (Ofirmev) 1,000 mg in 100 mls @ 400 mls/hr IV Q8H PRN; Protocol PRN Reason: Pain Stop: 03/15/21 09:59 Last Infusion: 03/12/21 10:46 Dose: Infused Documented by: Losartan Potassium (Losartan Potassium 50 Mg Tab) 100 mg PO [facility] Stop: 04/11/21 08:59 Last Admin: 03/12/21 08:29 Dose: 100 mg Documented by: Metoprolol Succinate (Metoprolol Succ 50mg Ext Rel Tab) 100 mg PO DAILY [facility] Stop: 04/11/21 08:59 Last Admin: 03/12/21 08:29 Dose: 100 mg Documented by: Oxycodone HCl (Oxycodone Hcl Ir 5 Mg Tab (Immediate Release)) 5 - 10 mg PO QID PRN PRN Reason: Pain Stop: 03/25/21 23:07 Last Admin: 03/12/21 13:44 Dose: 10 mg Documented by: Potassium Chloride (Potassium Chloride Crtab 20 Meq Tabcr) 20 meq PO [id number] [facility] Stop: 04/10/21 23:29 Last Admin: 03/12/21 08:29 Dose: 20 meq Documented by: Spironolactone (Spironolactone 12.5 Mg Tab) 12.5 mg PO DAILY [facility] Stop: 04/11/21 14:14 Warfarin Sodium (Warfarin Sod 10 Mg Tab) 10 mg PO DAILY@1600 [facility] Stop: 04/11/21 15:59
[2021-03-12] MEDS: SPIRONOLACTONE 12.5 MG TAB PO SCH (17:26)
[2021-03-12] MEDS: cefTRIAXone SODIUM 2,000 MG in DEXTROSE 5% 50 ML IV SCH (17:27)
[2021-03-12] MEDS: WARFARIN SOD 10 MG TAB PO SCH (17:38)
[2021-03-12 21:34] LABS: Partial Thromboplastin Ratio 2.9
[2021-03-12 21:44] LABS: Partial Thromboplastin Time 77.3 Seconds (21.0-31.0)
--- NOTE | 2021-03-12 22:55 | Electrocardiogram Report ---
Test Reason : Blood Pressure : / mmHG Vent. Rate : 074 BPM Atrial Rate : 074 BPM P-R Int : 202 ms QRS Dur : 158 ms QT Int : 464 ms P-R-T Axes : 035 -09 128 degrees QTc Int : 515 ms Normal sinus rhythm Left bundle branch block Abnormal ECG When compared with ECG of 28-DEC-2019 19:00, No significant change was found Confirmed by Tim Brown ([id number]) on 03/12/2021 10:55:21 PM Referred By: REFERRED SELF Confirmed By:Tim Brown
[2021-03-13] MEDS: HEPARIN SODIUM/DEXTROSE 25,000 UNITS/500 ML BAG IV SCH ×2 (00:49→05:27)
[2021-03-13] MEDS: HYDROmorphone INJ 1 MG/ML SYRINGE IV PRN (02:17)
[2021-03-13 03:59] LABS: Basophils # (auto) 0.02 K/uL (0-0.2); Basophils % (auto) 0.6 %; Eosinophils # (auto) 0.14 K/uL (0-0.5); Eosinophils % (auto) 4.1 %; Hemoglobin 11.9 g/dL (14.0-18.0); Immature Granulocytes # (auto) 0.01 K/uL (0.00-0.02); Immature Granulocytes % (auto) 0.3 %; Lymphocytes # (auto) 1.12 K/uL (1.2-3.4); Lymphocytes % (auto) 33.1 %; Mean Corpuscular Hemoglobin 29.5 pg (25-34); Mean Corpuscular Hgb Conc 33.1 g/dL (32-36); Mean Corpuscular Volume 89.1 fL (80-100); Mean Platelet Volume 9.9 fL (7.4-10.4); Monocytes # (auto) 0.39 K/uL (0.11-0.59); Monocytes % (auto) 11.5 %; Neutrophils % (auto) 50.4 %; Platelet Count 217 K/uL (130-400); RDW Coefficient of Variation 13.2 % (11.5-14.5); RDW Standard Deviation 43.4 fL (36.4-46.3); Red Blood Count 4.04 M/uL (4.7-6.1); White Blood Count 3.38 K/uL (4.8-10.8)
[2021-03-13 04:19] LABS: Calcium 8.6 mg/dl (8.5-10.1); Creatinine Clr Calc Pharmacy 221.1 ml/min; Est GFR (African American) 136.5; Est GFR (Non-African American) 117.8; Magnesium 2.2 mg/dl (1.8-2.4); Potassium 3.8 mmol/L (3.5-5.1)
[2021-03-13 04:50] LABS: Partial Thromboplastin Ratio 2.9
[2021-03-13] MEDS: PHENAZOPYRIDINE HCL 100 MG TAB PO PRN ×2 (05:28→13:06)
[2021-03-13] MEDS: ACETAMINOPHEN 1,000 MG/100 ML VIAL IV PRN (05:31)
[2021-03-13 06:39] LABS: Partial Thromboplastin Ratio 2.5
[2021-03-13 06:42] LABS: Partial Thromboplastin Time 65.5 Seconds (21.0-31.0)
[2021-03-13 08:40] LABS: INR 2.2 (0.9-1.1); Prothrombin Time 21.1 Seconds (9.0-12.0)
[2021-03-13] MEDS: amLODIPine BESYLATE 5 MG TAB PO SCH ×2 (09:24→21:24)
[2021-03-13] MEDS: DULoxetine HCL 30 MG CAP PO SCH (09:24)
[2021-03-13] MEDS: CLOPIDOGREL BISULFATE 75 MG TAB PO SCH (09:24)
[2021-03-13] MEDS: METOPROLOL SUCC 50MG EXT REL TAB PO SCH (09:25)
[2021-03-13] MEDS: LOSARTAN POTASSIUM 50 MG TAB PO SCH (09:25)
[2021-03-13] MEDS: DULoxetine HCL 60 MG CAP PO SCH (09:25)
[2021-03-13] MEDS: SPIRONOLACTONE 12.5 MG TAB PO SCH (09:26)
[2021-03-13] MEDS: POTASSIUM CHLORIDE CRTAB 20 MEQ TABCR PO SCH ×2 (09:26→17:52)
[2021-03-13] MEDS: cefTRIAXone SODIUM 2,000 MG in DEXTROSE 5% 50 ML IV SCH (09:35)
[2021-03-13] MEDS: FUROSEMIDE 40 MG in SYRINGE 0 ML IV SCH ×2 (10:40→21:24)
--- NOTE | 2021-03-13 11:41 | Cardiology Progress Note ---
Date of Service March 13, 2021 Assessment & Plan (1) Acute heart failure with preserved ejection fraction (HFpEF): -Continue furosemide 40 mg IV twice daily, potassium chloride 20 mEq twice daily, spironolactone 12.5 mg daily. -INR is therapeutic at 2.2, goal INR 23 given mechanical AVR. Heparin bridge has been discontinued. Continue Coumadin. (2) UTI (urinary tract infection): -Urine culture notable for E. coli. Continue Rocephin. Patient's rhythm and blood pressure has been stable, stable for transfer off of telemetry on ongoing diuretic therapy. Admission and Anticipated Discharge Date Admission Date: March 11, 2021 Subjective Patient seen in follow-up of his chief complaint of shortness of breath and lower extremity edema. He has tolerated IV furosemide well thus far, with total urine output in the last 24 hours of 4.6 L, net negative balance 2.9 L. He still has pedal edema and mild lower extremity edema, but is certainly improved. He is very pleased with his degree of improvement thus far but he is aware that additional treatment is necessary. Telemetry reveals sinus rhythm with left bundle branch block in the 80s. INR is therapeutic at 2.2, potassium 3.8. Physical Exam Physical Exam: Temp Pulse Resp BP Pulse Ox 36.9 C 71 18 136/73 96 03/13/21 07:58 03/13/21 07:58 03/13/21 07:58 03/13/21 07:58 03/13/21 07:58 Constitutional: WD/WN, vitals as above Respiratory: normal respiratory effort, lungs clear to auscultation Cardiovascular: Rate/Rhythm: regular rhythm Heart Sounds: normal S1 and normal S2 Extremities: + edema (1+ pedal, lower extremity edema bilaterally) Gastrointestinal (Abdomen): normal bowel sounds, soft, nontender, no hepatosplenomegaly Neurologic: PERRL, EOMI, accommodation nl, no face palsy, no dysarthria Results & Data ([facility]) Vital Signs (Past 12 Hours) Vital Signs Temp Pulse Pulse Resp BP Pulse Ox 03/13/21 07:58 36.9 C 71 18 136/73 96 03/13/21 07:30 57 L 03/13/21 04:07 36.4 C L 73 15 121/66 95 03/13/21 02:49 73 03/12/21 23:43 36.6 C 67 14 116/61 97 Laboratory Results Coagulation 03/12/21 03/12/21 03/13/21 Range/Units 12:50 20:59 03:41 PT (9.0-12.0) Seconds APTT 76.9 H* 77.3 H* 76.0 H* (21.0-31.0) Seconds 03/13/21 03/13/21 Range/Units 05:46 05:46 PT 21.1 H (9.0-12.0) Seconds APTT 65.5 H* (21.0-31.0) Seconds CBC 03/13/21 Range/Units 03:41 WBC 3.38 L (4.8-10.8) K/uL RBC 4.04 L (4.7-6.1) M/uL Hgb 11.9 L (14.0-18.0) g/dL Hct 36.0 L (42-52) % Plt Count 217 (130-400) K/uL Neut # (Auto) 1.70 (1.4-6.5) K/uL Lymph # (Auto) 1.12 L (1.2-3.4) K/uL [place] # (Auto) 0.39 (0.11-0.59) K/uL Eos # (Auto) 0.14 (0-0.5) K/uL Baso # (Auto) 0.02 (0-0.2) K/uL Comprehensive Metabolic Panel 03/13/21 Range/Units 03:41 Sodium 140 (136-145) mmol/L Potassium 3.8 (3.5-5.1) mmol/L Chloride 102 (98-107) mmol/L Carbon Dioxide 35 H (21-32) mmol/L BUN 14 (7-18) mg/dl Creatinine 0.78 (0.6-1.4) mg/dl Glucose 94 (70-99) mg/dl Calcium 8.6 (8.5-10.1) mg/dl Intake and Output 03/12/21 03/13/21 03/13/21 22:59 06:59 14:59 Intake Total 754.917 / 1927.117 313.5 / 1927.117 227.3 / 227.3 Output Total 1100 / 3850 1400 / 3850 750 / 750 Balance -345.083 / -1922.883 -1086.5 / -1922.883 -522.7 / -522.7 Intake: IV 514.917 / 1187.117 313.5 / 1187.117 227.3 / 227.3 Acetaminophen 1,000 mg In 100 100 / 300 100 / 300 ml @ 400 mls/hr IV Q8H PRN Rx#: [id number] Heparin Sodium/Dextrose 25,000 344.917 / 817.117 213.5 / 817.117 157.3 / 157.3 units In 500 ml @ 1,650 UNITS/ HR 33 mls/hr IV .[id number] [facility] Rx #:[id number] cefTRIAXone SODIUM 2,000 mg In 70 / 70 70 / 70 Dextrose 5% 50 ml @ 100 mls/hr IV DAILY [facility] Rx#:[id number] Oral 240 / 740 Output: Urine 1100 / 3850 1400 / 3850 750 / 750 Other: Other Intake Source sips # Unmeasured Voids 1 Weight 175.3 kg Weight Measurement Method Standing Scale
--- NOTE | 2021-03-13 13:40 | Hospitalist Progress Note ---
Date of Service March 13, 2021 Assessment & Plan (1) SOB (shortness of breath): Acute heart failure with preserved ejection fraction With weight gain and bilateral leg swelling Echo showed abnormal septal motion consistent with LBBB, EF was 55 to 60%, diastolic dysfunction, prosthetic aortic valve without any stenosis.No significant change compared with echo of 2019 Appreciate cardiology input and recommendation We will continue current doses of Lasix Has been diuresing enough and creatinine remains stable We will continue intravenous Lasix for today PT and OT evaluation possible discharge tomorrow afternoon Status post mechanical aortic valve replacement congenital bicuspid aortic valve, ascending aortic dissection status post surgery, chronic dissection on CT initial read On Coumadin with subtherapeutic INR. Heparin added Denies any chest pain and/or palpitation Has a chest pain this morning without any evidence of EKG abnormality and/or change in troponin He will be transferred to [facility] telemetry unit Complicated UTI, no sepsis Received 1 dose of ceftriaxone in the emergency room and will continue that from today Urine culture is growing E. coli and is pansensitive We will continue ceftriaxone for now and discharged home on oral Keflex Hypertension, stable past tobacco abuse. DVT prophylaxis. IV heparinCoumadin bridge, INR goal between 2 and 3 Full code PT and OT evaluation and possible discharge tomorrow Admission and Anticipated Discharge Date Admission Date: March 11, 2021 Subjective 03/12/2021 The patient was seen and examined in telemetry unit He is only 35-year-old male with significant complicated past cardiac history was admitted with Increasing shortness of breath with weight gain and leg swelling and also chest/back pain Pain is reasonably controlled and he does not want to take too much narcotics Wanted to have intravenous Tylenol to see if it helps Denies any chest pain and or palpitation during examination 03/13/2021 The patient was seen and examined in telemetry unit He has been feeling a lot better and is out of bed on a chair He denies any urological symptoms and he has been diuresing enough He denies any other significant symptoms Review of Systems Review of Systems: All systems reviewed and are unremarkable as noted below Cardiovascular: + edema; no chest pain and no palpitations Musculoskeletal: Bilateral lower back pain Physical Exam Physical Exam: Lying in bed comfortably Constitutional: well developed, well nourished, + ill appearing and + obese Eyes: PERRL, conjunctivae normal, anicteric sclerae ENMT: external ear and nose normal, oropharynx normal Neck: trachea midline, no thyromegaly Respiratory: no respiratory distress Auscultation: + diminished lung sounds and + crackles (Minimal crackles at the bases) Cardiovascular: Rate/Rhythm: regular rate and regular rhythm Heart Sounds: + murmur (2/6 ESM over precordium with prosthetic valve sound) Extremities: + edema (2+ edema bilaterally) Gastrointestinal (Abdomen): Inspection/Auscultation: + abdomen distended and normal bowel sounds Percussion/Palpation: abdomen soft; abdomen nontender Musculoskeletal: No acute arthritis in any joint Psychiatric: Alert, awake and oriented x3 Lymphatic: no cervical or axillary lymphadenopathy Results & Data Results & Data ([facility]) Vital Signs (Past 12 Hours) Vital Signs Temp Pulse Pulse Resp BP Pulse Ox 03/13/21 11:39 36.5 C 70 18 143/85 H 97 03/13/21 07:58 36.9 C 71 18 136/73 96 03/13/21 07:30 57 L 03/13/21 04:07 36.4 C L 73 15 121/66 95 03/13/21 02:49 73 Laboratory Results Short CBC 03/13/21 Range/Units 03:41 WBC 3.38 L (4.8-10.8) K/uL Hgb 11.9 L (14.0-18.0) g/dL Hct 36.0 L (42-52) % Plt Count 217 (130-400) K/uL BMP 03/13/21 03:41 Sodium 140 Potassium 3.8 Chloride 102 Carbon Dioxide 35 H BUN 14 Creatinine 0.78 Glucose 94 Calcium 8.6 Cardiac Enzymes 03/13/21 Range/Units 11:13 Troponin I < 0.015 (0-0.045) ng/ml Medications Administered Current Inpatient Medications Acetaminophen (Acetaminophen 325 Mg Tab) 650 mg PO Q4H PRN PRN Reason: Pain or Fever Stop: 04/10/21 23:07 Last Admin: 03/12/21 00:03 Dose: 650 mg Documented by: Amlodipine Besylate (Amlodipine Besylate 5 Mg Tab) 5 mg PO BID [facility] Stop: 04/10/21 23:07 Last Admin: 03/13/21 09:24 Dose: 5 mg Documented by: Clopidogrel Bisulfate (Clopidogrel Bisulfate 75 Mg Tab) 75 mg PO QAM [facility] Stop: 04/11/21 08:59 Last Admin: 03/13/21 09:24 Dose: 75 mg Documented by: Duloxetine HCl (Duloxetine Hcl 30 Mg Cap) 30 mg PO QAM [facility] Stop: 04/11/21 08:59 Last Admin: 03/13/21 09:24 Dose: 30 mg Documented by: Duloxetine HCl (Duloxetine Hcl 60 Mg Cap) 60 mg PO QAM [facility] Stop: 04/11/21 08:59 Last Admin: 03/13/21 09:25 Dose: 60 mg Documented by: Hydromorphone HCl (Hydromorphone Inj 1 Mg/Ml Syringe) 1 mg IV Q4H PRN PRN Reason: Pain Stop: 03/25/21 23:07 Last Admin: 03/13/21 02:17 Dose: 1 mg Documented by: Promethazine HCl 12.5 mg/ (Sodium Chloride) 50.5 mls @ 202 mls/hr IV Q6H PRN PRN Reason: Nausea And Vomiting Stop: 04/10/21 23:07 Acetaminophen (Ofirmev) 1,000 mg in 100 mls @ 400 mls/hr IV Q8H PRN; Protocol PRN Reason: Pain Stop: 03/15/21 09:59 Last Infusion: 03/13/21 05:59 Dose: Infused Documented by: Ceftriaxone Sodium 2,000 mg/ (Dextrose) 70 mls @ 100 mls/hr IV DAILY [facility]; P rotocol Stop: 03/22/21 15:29 Last Infusion: 03/13/21 10:25 Dose: Infused Documented by: Furosemide 40 mg/ Syringe 4 mls @ 4 mls/min IV BID [facility] Stop: 04/12/21 10:14 Last Admin: 03/13/21 10:40 Dose: 4 mls/min Documented by: Losartan Potassium (Losartan Potassium 50 Mg Tab) 100 mg PO QAM [facility] Stop: 04/11/21 08:59 Last Admin: 03/13/21 09:25 Dose: 100 mg Documented by: Metoprolol Succinate (Metoprolol Succ 50mg Ext Rel Tab) 100 mg PO DAILY [facility] Stop: 04/11/21 08:59 Last Admin: 03/13/21 09:25 Dose: 100 mg Documented by: Oxycodone HCl (Oxycodone Hcl Ir 5 Mg Tab (Immediate Release)) 5 - 10 mg PO QID PRN PRN Reason: Pain Stop: 03/25/21 23:07 Last Admin: 03/12/21 20:23 Dose: 10 mg Documented by: Phenazopyridine HCl (Phenazopyridine Hcl 100 Mg Tab) 100 mg PO TID PRN PRN Reason: Bladder pain Stop: 04/12/21 02:20 Last Admin: 03/13/21 13:06 Dose: 100 mg Documented by: Potassium Chloride (Potassium Chloride Crtab 20 Meq Tabcr) 20 meq PO BID17 [facility] Stop: 04/10/21 23:29 Last Admin: 03/13/21 09:26 Dose: 20 meq Documented by: Spironolactone (Spironolactone 12.5 Mg Tab) 12.5 mg PO DAILY [facility] Stop: 04/11/21 14:14 Last Admin: 03/13/21 09:26 Dose: 12.5 mg Documented by: Warfarin Sodium (Warfarin Sod 10 Mg Tab) 10 mg PO DAILY@1600 [facility] Stop: 04/11/21 15:59 Last Admin: 03/12/21 17:38 Dose: 10 mg Documented by:
[2021-03-13] MEDS: oxyCODONE HCL IR 5 MG TAB (IMMEDIATE RELEASE) PO PRN ×2 (14:39→21:22)
[2021-03-13] MEDS: WARFARIN SOD 10 MG TAB PO SCH (17:53)
[2021-03-14] MEDS: oxyCODONE HCL IR 5 MG TAB (IMMEDIATE RELEASE) PO PRN (02:42)
[2021-03-14] MEDS: PHENAZOPYRIDINE HCL 100 MG TAB PO PRN (02:52)
[2021-03-14 08:01] LABS: INR 1.9 (0.9-1.1); Prothrombin Time 18.2 Seconds (9.0-12.0)
[2021-03-14 08:13] LABS: BUN Creatinine Ratio 18.4 (10-20); Calcium 9.2 mg/dl (8.5-10.1); Creatinine Clr Calc Pharmacy 212.1 ml/min; Est GFR (African American) 135.1; Est GFR (Non-African American) 116.6; Potassium 4.1 mmol/L (3.5-5.1)
[2021-03-14] MEDS: METOPROLOL SUCC 50MG EXT REL TAB PO SCH (08:59)
[2021-03-14] MEDS: LOSARTAN POTASSIUM 50 MG TAB PO SCH (08:59)
[2021-03-14] MEDS: amLODIPine BESYLATE 5 MG TAB PO SCH (08:59)
[2021-03-14] MEDS: CLOPIDOGREL BISULFATE 75 MG TAB PO SCH (08:59)
[2021-03-14] MEDS: DULoxetine HCL 60 MG CAP PO SCH (08:59)
[2021-03-14] MEDS: DULoxetine HCL 30 MG CAP PO SCH (09:00)
[2021-03-14] MEDS: FUROSEMIDE 40 MG in SYRINGE 0 ML IV SCH (09:00)
[2021-03-14] MEDS: cefTRIAXone SODIUM 2,000 MG in DEXTROSE 5% 50 ML IV SCH (09:01)
[2021-03-14] MEDS: POTASSIUM CHLORIDE CRTAB 20 MEQ TABCR PO SCH (09:13)
[2021-03-14] MEDS: SPIRONOLACTONE 12.5 MG TAB PO SCH (09:13)
--- NOTE | 2021-03-14 11:10 | Hospitalist Progress Note ---
Date of Service March 14, 2021 Assessment & Plan (1) SOB (shortness of breath): Acute heart failure with preserved ejection fraction With weight gain and bilateral leg swelling Echo showed abnormal septal motion consistent with LBBB, EF was 55 to 60%, diastolic dysfunction, prosthetic aortic valve without any stenosis.No significant change compared with echo of 2019 Appreciate cardiology input and recommendation We will continue current doses of Lasix Has been diuresing enough and creatinine remains stable We will continue intravenous Lasix for today PT and OT evaluation possible discharge tomorrow afternoon Denies any symptoms and did very well with physical therapy He will be discharged home this afternoon He will need daily diuretics and spironolactone for his fluid overload/heart failure Status post mechanical aortic valve replacement congenital bicuspid aortic valve, ascending aortic dissection status post surgery, chronic dissection on CT initial read On Coumadin with subtherapeutic INR. Heparin added Denies any chest pain and/or palpitation Has a chest pain this morning without any evidence of EKG abnormality and/or change in troponin He will be transferred to [facility] telemetry unit Denies any more chest pain Complicated UTI, no sepsis Received 1 dose of ceftriaxone in the emergency room and will continue that from today Urine culture is growing E. coli and is pansensitive We will continue ceftriaxone for now and discharged home on oral Keflex Will change antibiotic to oral Keflex and continue for 4 more days Hypertension, stable past tobacco abuse. DVT prophylaxis. IV heparinCoumadin bridge, INR goal between 2 and 3 Full code PT and OT evaluation and possible discharge tomorrow Likely discharge this afternoon Admission and Anticipated Discharge Date Admission Date: March 11, 2021 Subjective 03/12/2021 The patient was seen and examined in telemetry unit He is only 35-year-old male with significant complicated past cardiac history was admitted with Increasing shortness of breath with weight gain and leg swelling and also chest/back pain Pain is reasonably controlled and he does not want to take too much narcotics Wanted to have intravenous Tylenol to see if it helps Denies any chest pain and or palpitation during examination 03/13/2021 The patient was seen and examined in telemetry unit He has been feeling a lot better and is out of bed on a chair He denies any urological symptoms and he has been diuresing enough He denies any other significant symptoms 03/14/2021 The patient was seen and examined in medical telemetry unit He has been feeling a lot better and wants to be discharged before noon He has had physical therapy and denies any symptoms He may sign out if not discharged by noon Review of Systems Review of Systems: All systems reviewed and are unremarkable as noted below Cardiovascular: + edema; no chest pain and no palpitations Musculoskeletal: Bilateral lower back pain-improved Physical Exam Physical Exam: Lying in bed comfortably Constitutional: well developed, well nourished, + ill appearing and + obese Eyes: PERRL, conjunctivae normal, anicteric sclerae ENMT: external ear and nose normal, oropharynx normal Neck: trachea midline, no thyromegaly Respiratory: no respiratory distress Auscultation: + diminished lung sounds and + crackles (Minimal crackles at the bases) Cardiovascular: Rate/Rhythm: regular rate and regular rhythm Heart Sounds: + murmur (2/6 ESM over precordium with prosthetic valve sound) Extremities: + edema (2+ edema bilaterally) Gastrointestinal (Abdomen): Inspection/Auscultation: + abdomen distended and normal bowel sounds Percussion/Palpation: abdomen soft; abdomen nontender Musculoskeletal: No acute arthritis in any joint Neurologic: PERRL, EOMI, accommodation nl, no face palsy, no dysarthria Psychiatric: A+Ox3, euthymic affect Lymphatic: no cervical or axillary lymphadenopathy Results & Data Results & Data ([facility]) Vital Signs (Past 12 Hours) Vital Signs Temp Pulse Pulse Resp BP Pulse Ox 03/14/21 09:00 58 L 03/14/21 07:55 36.3 C L 67 18 134/75 98 03/14/21 03:48 37.1 C 75 18 119/71 95 Laboratory Results [facility] 03/14/21 07:33 Sodium 139 Potassium 4.1 Chloride 105 Carbon Dioxide 31 BUN 15 Creatinine 0.80 Glucose 81 Calcium 9.2 Cardiac Enzymes 03/13/21 Range/Units 11:13 Troponin I < 0.015 (0-0.045) ng/ml Medications Administered Current Inpatient Medications Acetaminophen (Acetaminophen 325 Mg Tab) 650 mg PO Q4H PRN PRN Reason: Pain or Fever Stop: 04/10/21 23:07 Last Admin: 03/12/21 00:03 Dose: 650 mg Documented by: Amlodipine Besylate (Amlodipine Besylate 5 Mg Tab) 5 mg PO BID [facility] Stop: 04/10/21 23:07 Last Admin: 03/14/21 08:59 Dose: 5 mg Documented by: Clopidogrel Bisulfate (Clopidogrel Bisulfate 75 Mg Tab) 75 mg PO QAM [facility] Stop: 04/11/21 08:59 Last Admin: 03/14/21 08:59 Dose: 75 mg Documented by: Duloxetine HCl (Duloxetine Hcl 30 Mg Cap) 30 mg PO QAM [facility] Stop: 04/11/21 08:59 Last Admin: 03/14/21 09:00 Dose: 30 mg Documented by: Duloxetine HCl (Duloxetine Hcl 60 Mg Cap) 60 mg PO QAM [facility] Stop: 04/11/21 08:59 Last Admin: 03/14/21 08:59 Dose: 60 mg Documented by: Hydromorphone HCl (Hydromorphone Inj 1 Mg/Ml Syringe) 1 mg IV Q4H PRN PRN Reason: Pain Stop: 03/25/21 23:07 Last Admin: 03/13/21 02:17 Dose: 1 mg Documented by: Promethazine HCl 12.5 mg/ (Sodium Chloride) 50.5 mls @ 202 mls/hr IV Q6H PRN PRN Reason: Nausea And Vomiting Stop: 04/10/21 23:07 Acetaminophen (Ofirmev) 1,000 mg in 100 mls @ 400 mls/hr IV Q8H PRN; Protocol PRN Reason: Pain Stop: 03/15/21 09:59 Last Infusion: 03/13/21 05:59 Dose: Infused Documented by: Ceftriaxone Sodium 2,000 mg/ (Dextrose) 70 mls @ 100 mls/hr IV DAILY [facility]; Protocol Stop: 03/22/21 15:29 Last Infusion: 03/14/21 09:45 Dose: Infused Documented by: Furosemide 40 mg/ Syringe 4 mls @ 4 mls/min IV BID [facility] Stop: 04/12/21 10:14 Last Admin: 03/14/21 09:00 Dose: 4 mls/min Documented by: Losartan Potassium (Losartan Potassium 50 Mg Tab) 100 mg PO QAM [facility] Stop: 04/11/21 08:59 Last Admin: 03/14/21 08:59 Dose: 100 mg Documented by: Metoprolol Succinate (Metoprolol Succ 50mg Ext Rel Tab) 100 mg PO DAILY [facility] Stop: 04/11/21 08:59 Last Admin: 03/14/21 08:59 Dose: 100 mg Documented by: Oxycodone HCl (Oxycodone Hcl Ir 5 Mg Tab (Immediate Release)) 5 - 10 mg PO QID PRN PRN Reason: Pain Stop: 03/25/21 23:07 Last Admin: 03/14/21 02:42 Dose: 10 mg Documented by: Phenazopyridine HCl (Phenazopyridine Hcl 100 Mg Tab) 100 mg PO TID PRN PRN Reason: Bladder pain Stop: 04/12/21 02:20 Last Admin: 03/14/21 02:52 Dose: 100 mg Documented by: Potassium Chloride (Potassium Chloride Crtab 20 Meq Tabcr) 20 meq PO BID17 [facility] Stop: 04/10/21 23:29 Last Admin: 03/14/21 09:13 Dose: 20 meq Documented by: Spironolactone (Spironolactone 12.5 Mg Tab) 12.5 mg PO DAILY [facility] Stop: 04/11/21 14:14 Last Admin: 03/14/21 09:13 Dose: 12.5 mg Documented by: Warfarin Sodium (Warfarin Sod 10 Mg Tab) 10 mg PO DAILY@1600 [facility] Stop: 04/11/21 15:59 Last Admin: 03/13/21 17:53 Dose: 10 mg Documented by:
--- NOTE | 2021-03-14 21:59 | Electrocardiogram Report ---
Test Reason : Blood Pressure : / mmHG Vent. Rate : 072 BPM Atrial Rate : 072 BPM P-R Int : 200 ms QRS Dur : 160 ms QT Int : 470 ms P-R-T Axes : 024 -17 121 degrees QTc Int : 514 ms Normal sinus rhythm Left bundle branch block Abnormal ECG When compared with ECG of 11-MAR-2021 14:41, No significant change was found Confirmed by Tim Brown ([id number]) on 03/14/2021 9:58:35 PM Referred By: REFERRED SELF Confirmed By:Tim Brown
--- NOTE | 2021-03-15 09:00 | Discharge Summary ---
Date of Service March 15, 2021 Admission HPI Per Admitting Provider History obtained from patient and records. Medical history significant for congenital bicuspid aortic valve, ascending aortic dissection status post surgery, mechanical AVR on Coumadin, chronic LBBB, hypertension, hyperlipidemia, past tobacco abuse. Last confinement December 2019 for intractable abdominal pain secondary to abdominal wall hernia. [place] [facility] Subsequent hernia repair done. Patient woke up this morning with transient achy chest tightness and mid back pain with shortness of breath. No cough symptoms. Legs noted more swollen than usual. 8 pound weight gain in the last week. Denies dietary indiscretion. Denies OTC NSAID intake. Not on any fluid restriction at home. Unaware of snoring. No fever, no chills. No response to extra Lasix intake at home. Lasix and Ceftriaxone administered at the ER for CHF and UTI respectively. MEDICAL HISTORY: As above. SURGERIES: Aortic valve replacement, cholecystectomy, hypospadias surgery, aorta surgery, aortic valve replacement surgery with coronary reimplantation, left subclavian bypass, hernia repair/laparotomy, appendectomy, cholecystectomy FAMILY HISTORY: Heart disease. PERSONAL AND SOCIAL HISTORY: Past tobacco use. No chronic intake of alcoholic beverages. Currently unemployed. Admission Exam Per Admitting Provider Physical Exam: GENERAL: Comfortable, morbidly obese, no respiratory distress SKIN: Normal color, warm HEENT: [place] palpebral conjunctivae, no ptosis, dry buccal mucosa NECK : Supple, short neck, no tenderness CHEST : CTA, no tenderness HEART : RRR, mechanical murmur ABDOMEN: Some distention, nontender EXTREMITIES : Bilateral LE swelling, no LE tenderness, no other conspicuous deformities noted NEUROLOGIC : Coherent, no facial asymmetry, no other gross focality Principal Diagnosis Acute heart failure with preserved EF, status post aortic valve replacement, complicated UTI Discharge Exam Constitutional well developed, well nourished, + ill appearing and + obese Eyes PERRL, conjunctivae normal, anicteric sclerae ENMT external ear and nose normal, oropharynx normal Neck trachea midline, no thyromegaly Respiratory no respiratory distress Auscultation: + diminished lung sounds and + crackles (Minimal crackles at the bases) Cardiovascular Rate/Rhythm: regular rate and regular rhythm Heart Sounds: + murmur (2/6 ESM over precordium with prosthetic valve sound) Extremities: + edema (2+ edema bilaterally) Gastrointestinal (Abdomen) Inspection/Auscultation: + abdomen distended and normal bowel sounds Percussion/Palpation: abdomen soft; abdomen nontender Neurologic PERRL, EOMI, accommodation nl, no face palsy, no dysarthria Psychiatric A+Ox3, euthymic affect Lymphatic no cervical or axillary lymphadenopathy Discharge Data Allergies Allergy/AdvReac Type Severity Reaction Status Date / Time No Known Allergies Allergy Verified 03/11/21 15:15 Consultations 03/11/21 19:05 ED Decision to Admit Stat 03/11/21 23:08 Consult Cardiology Routine Ordered Studies 03/11/21 CT abd pelvis IV con only Urgent 03/11/21 16:20 CT abd pelvis wo con Stat 03/11/21 20:28 US venous doppler LE BI Urgent 03/11/21 20:37 CT angio chest dissec wo/w con Urgent Hospital Course (1) SOB (shortness of breath): Acute heart failure with preserved ejection fraction With weight gain and bilateral leg swelling Echo showed abnormal septal motion consistent with LBBB, EF was 55 to 60%, diastolic dysfunction, prosthetic aortic valve without any stenosis.No significant change compared with echo of 2019 Appreciate cardiology input and recommendation We will continue current doses of Lasix Has been diuresing enough and creatinine remains stable We will continue intravenous Lasix for today PT and OT evaluation possible discharge tomorrow afternoon Denies any symptoms and did very well with physical therapy He will be discharged home this afternoon He will need daily diuretics and spironolactone for his fluid overload/heart failure Status post mechanical aortic valve replacement congenital bicuspid aortic valve, ascending aortic dissection status post surgery, chronic dissection on CT initial read On Coumadin with subtherapeutic INR. Heparin added Denies any chest pain and/or palpitation Has a chest pain this morning without any evidence of EKG abnormality and/or change in troponin He will be transferred to [facility] telemetry unit Denies any more chest pain Complicated UTI, no sepsis Received 1 dose of ceftriaxone in the emergency room and will continue that from today Urine culture is growing E. coli and is pansensitive We will continue ceftriaxone for now and discharged home on oral Keflex Will change antibiotic to oral Keflex and continue for 4 more days Hypertension, stable past tobacco abuse. DVT prophylaxis. IV heparinCoumadin bridge, INR goal between 2 and 3 Full code PT and OT evaluation and possible discharge tomorrow Likely discharge this afternoon Total Time Total Time Spent Total Time Spent (In Minutes): 35 minutes Total Time Includes: Examination of the Patient, Discharge Planning, Medication Reconciliation and Communication With Other Providers Discharge Plan Discharge Items Patient Disposition: Home - Self-Care Reason For Visit: CP, FLUID RETENTION, COMP UTI Discharge Diagnosis: Acute heart failure with preserved EF, status post aortic valve replacement, complicated UTI Condition on Discharge: Fair Activity: Resume your previous activity Non-emergency contact: Primary Care Provider Call non-emergency contact if: you have any medication questions and your symptoms worsen Follow-up/Referrals: Brian Guido MD [Primary Care Provider] - (Date & Time 03/19/2021 3:00 PM Provider Brian Guido MD Department Family Medicine [facility] ) Diet: Heart Healthy Fluids: 1500ml (6 cups) Addtl Attending Provider Instructions: Please take your medications as advised Take precautions to avoid falls Please keep your appointments with the providers Pending Studies at Discharge: No Stand-Alone Forms: My [employer], Smoking Cessation Medications and DC Order Prescriptions: New spironolactone 25 mg Tablet 12.5 mg PO DAILY 30 Days Qty: 15 RF: 0 phenazopyridine [Pyridium] 100 mg Tablet 100 mg PO TID PRN (Reason: pain) 2 Days Qty: 6 RF: 0 cephalexin 500 mg capsule 500 mg PO Q8H 7 Days Qty: 21 RF: 0 Continued warfarin 5 mg tablet 5 mg PO UD RF: 0 clopidogrel 75 mg tablet 75 mg PO QAM RF: 0 amlodipine 5 mg tablet 5 mg PO BID RF: 0 losartan 100 mg tablet 100 mg PO QAM RF: 0 duloxetine 60 mg capsule,delayed release(DR/EC) 60 mg PO QAM RF: 0 metoprolol succinate 100 mg tablet extended release 24 hr 100 mg PO DAILY RF: 0 duloxetine 30 mg capsule,delayed release(DR/EC) 30 mg PO QAM RF: 0 Changed furosemide 40 mg Tablet 40 mg PO DAILY Qty: 0 RF: 0 potassium chloride 10 mEq Tablet Extended Release 20 meq PO BID PRN (Reason: if taking furosemide) Qty: 0 RF: 0 Discontinued hydrochlorothiazide 25 mg tablet 25 mg PO QAM RF: 0 Discharge Orders: Discharge Order (Routine); Ordered 03/14/21 Ordered By: Vadim Correa Admission Data Admit Date/Time: 03/11/21 21:52 Attending Provider: Vadim Correa Admit Provider: Wagner Hicks Primary Care Provider: Brian Guido Other Providers: Wagner Hicks ; Segundo Albarran ; Bishop Garcia ; Pepe Dupont ; Lloyd Burrell ; Tulio Louise ; Clarence Hernandez ; Adeladie Brian ; Radha Guillaume ; Halle Gallegos ; Jovan Graham Other Interventions: Discharge Summary Assessment (RN) Last Done: 03/14/21 12:35
== END 2021-03-14 13:29 | disposition home or self-care (01) ==
LOC: ED 14:20 → 2S 21:52 → 2W 03-13 09:58

== ENCOUNTER 2021-04-20 15:32 | Inpatient (IN) ==
[2021-04-20 16:32] LABS: Basophils # (auto) 0.02 K/uL (0-0.2); Basophils % (auto) 0.4 %; Eosinophils # (auto) 0.14 K/uL (0-0.5); Hematocrit (blood only) 37.7 % (42-52); Hemoglobin 12.6 g/dL (14.0-18.0); Immature Granulocytes # (auto) 0.01 K/uL (0.00-0.02); Immature Granulocytes % (auto) 0.2 %; Lymphocytes % (auto) 32.2 %; Mean Corpuscular Hemoglobin 30.1 pg (25-34); Mean Corpuscular Hgb Conc 33.4 g/dL (32-36); Mean Platelet Volume 9.9 fL (7.4-10.4); Monocytes # (auto) 0.45 K/uL (0.11-0.59); Monocytes % (auto) 9.7 %; Neutrophils # (auto) 2.54 K/uL (1.4-6.5); Neutrophils % (auto) 54.5 %; Platelet Count 234 K/uL (130-400); RDW Standard Deviation 45.7 fL (36.4-46.3); Red Blood Count 4.19 M/uL (4.7-6.1); White Blood Count 4.66 K/uL (4.8-10.8)
[2021-04-20 16:39] LABS: Alanine Aminotransferase 67 U/L (12-78); Albumin Level 3.9 gm/dl (3.4-5.0); Aspartate Aminotransferase 44 U/L (15-37); BUN Creatinine Ratio 19.5 (10-20); Blood Urea Nitrogen 17 mg/dl (7-18); Calcium 8.9 mg/dl (8.5-10.1); Carbon Dioxide 29 mmol/L (21-32); Chloride 104 mmol/L (98-107); Creatinine Clr Calc Pharmacy 190.4 ml/min; Est GFR (African American) 129.3 ml/min; Est GFR (Non-African American) 111.6 ml/min; Glucose 103 mg/dl (70-99); Lipase 73 U/L (73-393); Magnesium 2.3 mg/dl (1.8-2.4); Potassium 3.8 mmol/L (3.5-5.1); Sodium 139 mmol/L (136-145)
[2021-04-20] MEDS ORDERED: FUROSEMIDE 40 MG/4 ML VIAL IV STA (16:42)
[2021-04-20] MEDS ORDERED: MoRPHine SULFATE 4 MG/ML 1 ML CARP\\VIAL IV STA (16:42)
[2021-04-20 16:50] LABS: Albumin Globulin Ratio 0.9 (0.9-2); Alkaline Phosphatase 61 U/L (45-117); Globulin 4.3 gm/dl (2.5-4.0); NT Pro B Type Natriuretic Pept 139 pg/ml (0-450); Total Protein 8.2 gm/dl (6.4-8.2); Troponin I < 0.015 ng/ml (0-0.045)
--- NOTE | 2021-04-20 17:00 | XRay Report ---
XR chest 1V portable CLINICAL HISTORY: sob COMPARISON STUDY: March 11, 2021 FINDINGS: No pneumothorax. No pleural effusion. No large infiltrates or consolidative lesions are seen. Evaluation is limited due to patient's body h abitus. Cardiomediastinal silhouette remains mildly enlarged. 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 No significant pulmonary vascular congestion.. Osseous structures: unremarkable Midline sternotomy wires are again seen. IMPRESSION: 1. Stable cardiomegaly. Limited evaluation due to patient body habitus. ACT 112: Negative or not required by law. The above report was generated using voice recognition software. It may contain grammatical, syntax o r spelling errors. Electronically signed by: Jesusita Jin DO 04/20/2021 4:59 PM
[2021-04-20 17:04] LABS: INR 2.6 (0.9-1.1); Prothrombin Time 24.2 Seconds (9.0-12.0)
--- NOTE | 2021-04-20 17:07 | Electrocardiogram Report ---
Test Reason : Blood Pressure : / mmHG Vent. Rate : 068 BPM Atrial Rate : 068 BPM P-R Int : 216 ms QRS Dur : 170 ms QT Int : 500 ms P-R-T Axes : 035 -18 128 degrees QTc Int : 531 ms Sinus rhythm with 1st degree A-V block Non-specific intra-ventricular conduction delay Abnormal ECG When compared with ECG of 08-APR-2021 10:44, MS interval has increased Confirmed by Shivam Durant ([id number]) on 04/20/2021 5:06:47 PM Referred By: Confirmed By:Irvin Durant
[2021-04-20 17:36] LABS: Appearance Urine Clear (Clear); Bacteria Urine Automated 3+ (Negative); Bilirubin Urine Negative (Negative); Blood Urine Negative (Negative); Color Urine Yellow; Glucose Urine UA Negative (Negative); Ketones Urine Negative (Negative); Leukocyte Esterase Urine Trace (Negative); Nitrite Urine Negative (Negative); Protein Urine Negative (Negative); RBC Urine Automated 0-4 /hpf (0-4); Specific Gravity Urine 1.013 (1.000-1.030); Urobilinogen Urine Negative (Negative)
--- NOTE | 2021-04-20 17:45 | CT Scan Report ---
ABDOMEN AND PELVIS CT WITHOUT CONTRAST CT DOSE: 5658.16 mGy.cm HISTORY: right flank pain TECHNIQUE: Multiaxial CT images of the abdomen and pelvis were performed without contrast. A dose lo wering technique was utilized adhering to the principles of ALARA. COMPARISON STUDY: Abdomen and pelvis CT 04/08/2021. FINDINGS: The lung bases are clear. No pneumoperitoneum. No pneumatosis. No fractures within the visu alized osseous structures. There are poststernotomy changes. Hepatic steatosis. Cholecystectomy. The unenhanced spleen, adrenal glands, pancreas, and kidneys are unremarkable. No hydronephrosis. No retr operitoneal lymphadenopathy. The patient's known chronic aortic dissection is not well visualized on this noncontrast study. Prior midline abdominal wall incision. The bladder is unremarkable. No pelvic free fluid. Suboptimal evaluation for bowel pathology due to the lack of intravenous and oral contra st. However, there is no definite bowel wall thickening or obstruction. Moderate well-formed stool se en within the colon. The appendix is not identified and reportedly surgically absent. IMPRESSION: 1. No renal or ureteral stones. No hydronephrosis. 2. No definite bowel wall thickening or obstruction. 3. The patient's known chronic aortic dissection is not well visualized on this examination. ACT 112: Negative or not required by law. Electronically signed by: Bert Schaffer M.D. 04/20/2021 5:43 PM
--- NOTE | 2021-04-20 19:03 | Emergency Department Note ---
History of Present Illness General Chief complaint: Swelling/Edema to Extremity Stated complaint: both legs/feet swelling, flank pain Time Seen by Provider: 04/20/21 16:09 Source: patient Mode of arrival: ambulatory Limitations: no limitations History of Present Illness Provider complaint: Sent in by Dr. Dupont, increased leg edema, back pain Onset (ago): week(s) 1 Location: back and lower extremity Radiation: abdomen Severity: moderate Pain Consistency: + colicky Maximum Pain Intensity: 7 Relieved By: + none Exacerbated By: + none Associated symptoms: + denies other symptoms This is a 35-year-old male with significant past medical history who presents at the request of his administrative associate Dr. Dupont due to concern for increased lower extremity edema over the last week despite attempts to manage this as an outpatient by increasing his usual diuretic. Patient states he has had issue in the past with lower extremity edema as well as congestive heart failure. He does take a diuretic daily. He has had approximately a 16 pound weight gain over the last week. He contacted Dr. Dupont several days ago who gave him instructions on increasing his diuretic dosing at home. He then recontacted him 2 days ago and additional adjustments were made. When he contacted him today to state that his symptoms were still not improving, he was instructed to come the emergency room. Patient is anticoagulated due to history of mechanical heart valve. He states his last INR was 2.9. Patient denies fevers, chills, or URI symptoms. He states he is also noticed some right low back pain. He has previously had a kidney stone and states this feels similar to that. Patient states he has a difficulty starting his urine stream, has not noticed any blood in the urine. Denies any change in bowel movements, no black or bloody stools. Patient denies other abdominal pain, chest pain, or trouble breathing. Pt seen during a time of high acuity and national emergency pandemic while wearing PPE. Home Medications Medication Instructions Recorded Confirmed Type amlodipine 5 mg PO BID 11/12/18 04/20/21 History clopidogrel 75 mg PO QAM 11/12/18 04/20/21 History duloxetine 60 mg PO QAM 11/12/18 04/20/21 History losartan 100 mg PO QAM 11/12/18 04/20/21 History warfarin 5 mg PO UD 12/06/19 04/20/21 History duloxetine 30 mg PO QAM 03/11/21 04/20/21 History metoprolol succinate 100 mg PO QAM 03/11/21 04/20/21 History acetaminophen [Tylenol Extra 1,000 mg PO Q6H PRN 04/08/21 04/20/21 History Strength] furosemide 40 mg PO QAM 04/08/21 04/20/21 History omega-3 fatty acids [[place] 3] 2,000 mg PO QAM 04/08/21 04/20/21 History potassium chloride 20 meq PO QAM 04/08/21 04/20/21 History multivitamin 1 tab PO DAILY 04/20/21 04/20/21 History Allergies Allergy/AdvReac Type Severity Reaction Status Date / Time No Known Allergies Allergy Verified 04/20/21 20:07 Past Med/Surg History Medical History (Updated 04/22/21 @ 22:46 by Evelyn Dinero DO) Amaurosis fugax of right eye Anticoagulated on Coumadin Anxiety Aortic dissection Per Clarence Hernandez PA-C progress note from 04/08/18 " Type 1 aortic dissection, 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 3.Status post emergent aortic valve and root replacement with [facility] mechanical valve and conduit size 27 along with coronary reimplantation. 4.Post discharge course complicated by cardiac tamponade requiring left thoracotomy, pericardial window on 07/29/14. 5.Patient status post 05/29/2015 redo sternotomy, left carotid subclavian bypass, right axillary cannulation with an 8 mm graft, arch replacement with a 30 mm branched Dacron graft, ligation of left subclavian artery, arch debranching with individual anastomoses to the right subclavian, right carotid, and left carotid arteries." Chronic systolic (congestive) heart failure Congenital bicuspid aortic valve DDD (degenerative disc disease), lumbar HLD (hyperlipidemia) HTN (hypertension) Surgical History H/O exploratory laparotomy H/O mechanical aortic valve replacement [facility] 27 along with coronary reimplantation 07/2014 History of ERCP S/P AAA repair "07/15/2014 REPAIR AORTA WITH CARDIOPULMONARY BYPASS performed by Timbo Heredia MD at [facility] Persistent aortic dissection with resultant repeat surgery on 05/27/2015 for arch repair." S/P cholecystectomy S/P ERCP (06/08/14) Family History Mother Alive and well Father Alive and well Grandfather (Maternal) Coronary heart disease T2DM (type 2 diabetes mellitus) Grandmother (Maternal) T2DM (type 2 diabetes mellitus) Coronary heart disease Other No family history of kidney disease Social History Smoking Status: Former smoker Years Smoked: 12; Cigarettes Per Day: 1; Smoking End Date: 6 years ago; Second Hand Exposure: No; Hx Alcohol Use: Yes Alcohol type: beer Hx Substance Use: No Preferred Language: Lithuanian Communication Ability: Effective Fire Management Officer Required: No Beliefs That Will Affect Care: None Current Living Situation: Family Current Living Situation Comment: Lives with Dad Feels Safe at Home: Yes Safety Concerns: Feels Safe At This Time Assistive Devices: None Review of Systems See HPI for pertinent positives & negatives. and A total of 10 systems reviewed and were otherwise negative Physical Exam Vital Signs Vital Signs - 24 hr 04/20/21 15:37 04/20/21 16:00 04/20/21 16:31 Temperature 36.7 C Temperature Source Temporal Artery Scan Pulse Rate 75 68 69 Pulse Rate from SpO2 Sensor 68 68 Respiratory Rate 18 16 15 Blood Pressure 126/68 113/58 L 161/75 H Blood Pressure Mean 87 76 103 Pulse Oximetry 99 95 96 Oxygen Delivery Method Room Air Sepsis Recent Fever Within 48 Hours No Sepsis New/Unexplained Change in Mental Status No Sepsis Action Taken by Nursing No Action Required 04/20/21 17:18 04/20/21 17:30 04/20/21 18:00 Temperature Temperature Source Pulse Rate 67 71 69 Pulse Rate from SpO2 Sensor 67 71 68 Respiratory Rate 16 22 19 Blood Pressure 139/74 124/73 145/77 H Blood Pressure Mean 95 90 99 Pulse Oximetry 99 96 94 Oxygen Delivery Method Sepsis Recent Fever Within 48 Hours Sepsis New/Unexplained Change in Mental Status Sepsis Action Taken by Nursing 04/20/21 18:30 04/20/21 19:00 Temperature Temperature Source Pulse Rate 75 75 Pulse Rate from SpO2 Sensor 73 Respiratory Rate 17 15 Blood Pressure 123/73 114/58 L Blood Pressure Mean 89 76 Pulse Oximetry 99 94 Oxygen Delivery Method Sepsis Recent Fever Within 48 Hours Sepsis New/Unexplained Change in Mental Status Sepsis Action Taken by Nursing GENERAL: alert, well appearing, well nourished, no distress, non-toxic, BMI>50 EYE EXAM: normal conjunctiva, PERRL and EOM's grossly intact OROPHARYNX: no exudate, no erythema, lips, buccal mucosa, and tongue normal and mucous membranes are moist NECK: supple, no nuchal rigidity, no adenopathy, non-tender LUNGS: Clear to auscultation. Normal chest wall mechanics, no w/r/r HEART: no murmurs, S1 normal and S2 normal ABDOMEN: abdomen soft, non-tender, normo-active bowel sounds, no masses, no rebound or guarding. Multiple well healed surgical scars. BACK: Back is symmetrical on inspection and there is no deformity, no midline tenderness, no CVA tenderness. SKIN: no rashes and no bruising UPPER EXTREMITIES: upper extremities are grossly normal. FROM, nml pulses b/l. LOWER EXTREMITIES: 3+ b/l pitting edema. FROM, nml pulses b/l. NEURO EXAM: Normal sensorium, cranial nerves II-XII grossly intact, normal speech, no gross weakness of arms, no gross weakness of legs. Gross sensation intact. Course Course 1911: Discussed with Dr. Hicks. 1923: Pt updated on additional results. Administered Medications Amlodipine Besylate (Amlodipine Besylate 5 Mg Tab) 5 mg PO BID [facility] Stop: 05/21/21 08:59 Last Admin: 04/22/21 20:07 Dose: 5 mg Documented by: [id number] Admin: 04/22/21 09:21 Dose: 5 mg Documented by: [id number] Admin: 04/21/21 21:02 Dose: 5 mg Documented by: [id number] Admin: 04/21/21 09:52 Dose: 5 mg Documented by: [id number] Clopidogrel Bisulfate (Clopidogrel Bisulfate 75 Mg Tab) 75 mg PO [facility] Stop: 05/21/21 08:59 Last Admin: 04/22/21 09:22 Dose: 75 mg Documented by: [id number] Admin: 04/21/21 09:54 Dose: 75 mg Documented by: [id number] Duloxetine HCl (Duloxetine Hcl 60 Mg Cap) 60 mg PO [facility] Stop: 05/21/21 08:59 Last Admin: 04/22/21 09:23 Dose: 60 mg Documented by: [id number] Admin: 04/21/21 09:55 Dose: 60 mg Documented by: [id number] Duloxetine HCl (Duloxetine Hcl 30 Mg Cap) 30 mg PO QAM [facility] Stop: 05/21/21 08:59 Last Admin: 04/22/21 09:22 Dose: 30 mg Documented by: [id number] Admin: 04/21/21 09:52 Dose: 30 mg Documented by: [id number] Hydromorphone HCl (Hydromorphone Inj 1 Mg/Ml Syringe) 1 mg IV Q6H PRN PRN Reason: Pain Stop: 05/04/21 23:28 Last Admin: 04/22/21 13:59 Dose: 1 mg Documented by: [id number] Admin: 04/21/21 18:09 Dose: 1 mg Documented by: [id number] Admin: 04/21/21 09:21 Dose: 1 mg Documented by: [id number] Admin: 04/21/21 02:28 Dose: 1 mg Documented by: [id number] Furosemide 80 mg/ Syringe 8 mls @ 4 mls/min IV [id number] [facility] Stop: 05/21/21 20:59 Last Admin: 04/22/21 18:06 Dose: 4 mls/min Documented by: [id number] Admin: 04/22/21 09:25 Dose: 4 mls/min Documented by: [id number] Admin: 04/21/21 21:01 Dose: 4 mls/min Documented by: [id number] Ceftriaxone Sodium 2,000 mg/ (Dextrose) 70 mls @ 100 mls/hr IV Q24H [facility]; Protocol Stop: 04/23/21 10:41 Last Infusion: 04/22/21 11:45 Dose: 0 mls/hr Documented by: [id number] Admin: 04/22/21 09:29 Dose: 100 mls/hr Documented by: [id number] Infusion: 04/21/21 11:47 Dose: 0 mls/hr Documented by: [id number] Admin: 04/21/21 10:58 Dose: 100 mls/hr Documented by: [id number] Losartan Potassium (Losartan Potassium 50 Mg Tab) [facility] [place] Stop: 05/21/21 08:59 Last Admin: 04/22/21 09:21 Dose: 100 mg Documented by: [id number] Admin: 04/21/21 09:54 Dose: 100 mg Documented by: [id number] Metoprolol Succinate (Metoprolol Succ 50mg Ext Rel Tab) 100 mg PO QAM [facility] Stop: 05/21/21 08:59 Last Admin: 04/22/21 09:24 Dose: 100 mg Documented by: [id number] Admin: 04/21/21 09:53 Dose: 100 mg Documented by: [id number] Multivitamins (Multivitamin Tab) 1 tab PO DAILY [facility] Stop: 05/21/21 08:59 Last Admin: 04/22/21 09:23 Dose: 1 tab Documented by: [id number] Admin: 04/21/21 09:53 Dose: 1 tab Documented by: [id number] Oxycodone HCl (Oxycodone Hcl Ir 5 Mg Tab (Immediate Release)) 5 - 10 mg PO QID PRN PRN Reason: Pain Stop: 05/04/21 23:28 Last Admin: 04/22/21 18:04 Dose: 10 mg Documented by: [id number] Admin: 04/22/21 09:19 Dose: 10 mg Documented by: [id number] Admin: 04/22/21 01:25 Dose: 10 mg Documented by: [id number] Admin: 04/21/21 21:01 Dose: 10 mg Documented by: [id number] Admin: 04/21/21 12:13 Dose: 10 mg Documented by: [id number] Admin: 04/21/21 00:21 Dose: 10 mg Documented by: [id number] Potassium Chloride (Potassium Chloride Crtab 20 Meq Tabcr) 20 meq PO BID [facility] Stop: 05/21/21 08:59 Last Admin: 04/22/21 20:07 Dose: 20 meq Documented by: [id number] Admin: 04/22/21 09:21 Dose: 20 meq Documented by: [id number] Admin: 04/21/21 21:02 Dose: 20 meq Documented by: [id number] Admin: 04/21/21 09:55 Dose: 20 meq Documented by: [id number] Sodium Chloride (Sodium Chloride 0.65% Na Soln 45 Ml (Kay)) 2 sprays NA TID PRN PRN Reason: Nasal dryness Stop: 05/22/21 01:33 Last Admin: 04/22/21 20:13 Dose: 2 sprays Documented by: [id number] Spironolactone (Spironolactone 25 Mg Tab) 25 mg PO QAM [facility] Stop: 05/21/21 09:14 Last Admin: 04/22/21 09:23 Dose: 25 mg Documented by: [id number] Admin: 04/21/21 10:58 Dose: 25 mg Documented by: [id number] Warfarin Sodium (Warfarin Sod 5 Mg Tab) 15 mg PO [id number] [facility] Stop: 05/21/21 15:59 Last Admin: 04/22/21 18:05 Dose: 15 mg Documented by: [id number] Admin: 04/21/21 18:10 Dose: 15 mg Documented by: [id number] Discontinued Medications Amlodipine Besylate (Amlodipine Besylate 5 Mg Tab) 5 mg PO NOW ONE Stop: 04/20/21 21:49 Last Admin: 04/20/21 22:49 Dose: 5 mg Documented by: [id number] Furosemide (Furosemide 40 Mg/4 Ml Vial) 80 mg IV NOW STA Stop: 04/20/21 16:43 Last Admin: 04/20/21 16:50 Dose: 80 mg Documented by: [id number] Furosemide (Furosemide 40 Mg/4 Ml Vial) 80 mg IV ONE ONE Stop: 04/21/21 08:01 Last Admin: 04/21/21 09:48 Dose: 80 mg Documented by: [id number] Hydromorphone HCl (Hydromorphone Inj 1 Mg/Ml Syringe) 1 mg IV NOW STA Stop: 04/20/21 20:21 Last Admin: 04/20/21 20:28 Dose: 1 mg Documented by: [id number] Albumin Human (Albumin 25%) 12.5 gm in 50 mls @ 50 mls/hr IV ONE ONE Stop: 04/21/21 00:28 Last Infusion: 04/21/21 01:25 Dose: 0 mls/hr Documented by: [id number] Admin: 04/21/21 00:22 Dose: 50 mls/hr Documented by: [id number] Albumin Human (Albumin 25%) 12.5 gm in 50 mls @ 50 mls/hr IV ONE ONE Stop: 04/21/21 08:59 Last Infusion: 04/21/21 10:59 Dose: 0 mls/hr Documented by: [id number] Admin: 04/21/21 09:47 Dose: 50 mls/hr Documented by: [id number] Ioversol (Optiray 320 125ml) 120 ml IV ONCE ONE Stop: 04/20/21 20:51 Last Admin: 04/20/21 20:50 Dose: 120 ml Documented by: [id number] Morphine Sulfate (Morphine Sulfate 4 Mg/Ml 1 Ml Carp\\Vial) 4 mg IV NOW STA Stop: 04/20/21 16:43 Last Admin: 04/20/21 16:50 Dose: 4 mg Documented by: [id number] Potassium Chloride (Potassium Chloride Crtab 20 Meq Tabcr) 20 meq PO NOW STA Stop: 04/20/21 23:30 Last Admin: 04/21/21 00:16 Dose: 20 meq Documented by: [id number] Warfarin Sodium (Warfarin Sod 2 Mg Tab) 2 mg PO NOW ONE Stop: 04/21/21 01:27 Last Admin: 04/21/21 02:02 Dose: 2 mg Documented by: [id number] Medical Decision Making Differential Diagnosis Differential: DVT, CHF, Arterial Occlusion, Infectious, Joint Effusion, Trauma, Lymphedema, Idiopathic, Trauma, amongst other pathologies entertained. Medical Records Attestation: I reviewed the patient's medical records. Home Medications Current Medication List: was personally reviewed by me Laboratory Data Attestation: I reviewed the patient's lab results. Result diagrams: 04/22/21 08:23 04/22/21 08:23 Lab Results 04/20/21 04/20/21 04/20/21 Range/Units 15:57 15:57 15:57 WBC 4.66 L (4.8-10.8) K/uL RBC 4.19 L (4.7-6.1) M/uL Hgb 12.6 L (14.0-18.0) g/dL Hct 37.7 L (42-52) % MCV 90.0 (80-100) fL MCH 30.1 (25-34) pg MCHC 33.4 (32-36) g/dL RDW Std Deviation 45.7 (36.4-46.3) fL RDW Coeff of Levon 14.0 (11.5-14.5) % Plt Count 234 (130-400) K/uL MPV 9.9 (7.4-10.4) fL Immature Gran % (Auto) 0.2 % Neut % (Auto) 54.5 % Lymph % (Auto) 32.2 % Mayes % (Auto) 9.7 % Eos % (Auto) 3.0 % Baso % (Auto) 0.4 % Neut # (Auto) 2.54 (1.4-6.5) K/uL Lymph # (Auto) 1.50 (1.2-3.4) K/uL Mayes # (Auto) 0.45 (0.11-0.59) K/uL Eos # (Auto) 0.14 (0-0.5) K/uL Baso # (Auto) 0.02 (0-0.2) K/uL Immature Gran # (Auto) 0.01 (0.00-0.02) K/uL PT (9.0-12.0) Seconds INR (0.9-1.1) Sodium 139 (136-145) mmol/L Potassium 3.8 (3.5-5.1) mmol/L Chloride 104 (98-107) mmol/L Carbon Dioxide 29 (21-32) mmol/L Anion Gap 6.0 (3-11) BUN 17 (7-18) mg/dl Creatinine 0.89 (0.6-1.4) mg/dl Est Cr Clr Drug Dosing 190.4 ml/min Est GFR ( Amer) 129.3 ml/min Est GFR (Non-Af Amer) 111.6 ml/min BUN/Creatinine Ratio 19.5 (10-20) Glucose 103 H (70-99) mg/dl Calcium 8.9 (8.5-10.1) mg/dl Magnesium 2.3 (1.8-2.4) mg/dl Total Bilirubin 1.0 (0.2-1) mg/dl AST 44 H (15-37) U/L ALT 67 (12-78) U/L Alkaline Phosphatase 61 (45-117) U/L Total Creatine Kinase 288 (39-308) U/L Troponin I < 0.015 (0-0.045) ng/ml NT-Pro-B Natriuret Pep 139 (0-450) pg/ml Total Protein 8.2 (6.4-8.2) gm/dl Albumin 3.9 (3.4-5.0) gm/dl Globulin 4.3 H (2.5-4.0) gm/dl Albumin/Globulin Ratio 0.9 (0.9-2) Lipase 73 (73-393) U/L TSH 2.290 (0.300-4.500) uIu/ml Urine Color Urine Appearance (Clear) Urine pH (4.5-7.5) Ur Specific [place] (1.000-1.030) Urine Protein (Negative) Urine Glucose (UA) (Negative) Urine Ketones (Negative) Urine Blood (Negative) Urine Nitrite (Negative) Urine Bilirubin (Negative) Urine Urobilinogen (Negative) Ur Leukocyte Esterase (Negative) Urine WBC (Auto) (0-5) /hpf Urine RBC (Auto) (0-4) /hpf U Hyaline Cast (Auto) (0-5) /lpf U Epithel Cells (Auto) (0-5) /lpf Urine Bacteria (Auto) (Negative) Ethyl Alcohol mg/dL (0-3) mg/dl COVID-19 Eval Order SARS-CoV-2 (PCR) (Negative) 04/20/21 04/20/21 04/20/21 Range/Units 16:15 16:40 16:40 WBC (4.8-10.8) K/uL RBC (4.7-6.1) M/uL Hgb (14.0-18.0) g/dL Hct (42-52) % MCV (80-100) fL MCH (25-34) pg MCHC (32-36) g/dL RDW Std Deviation (36.4-46.3) fL RDW Coeff of Levon (11.5-14.5) % Plt Count (130-400) K/uL MPV (7.4-10.4) fL Immature Gran % (Auto) % Neut % (Auto) % Lymph % (Auto) % Mayes % (Auto) % Eos % (Auto) % Baso % (Auto) % Neut # (Auto) (1.4-6.5) K/uL Lymph # (Auto) (1.2-3.4) K/uL Mayes # (Auto) (0.11-0.59) K/uL Eos # (Auto) (0-0.5) K/uL Baso # (Auto) (0-0.2) K/uL Immature Gran # (Auto) (0.00-0.02) K/uL PT 24.2 H (9.0-12.0) Seconds INR 2.6 H (0.9-1.1) Sodium (136-145) mmol/L Potassium (3.5-5.1) mmol/L Chloride (98-107) mmol/L Carbon Dioxide (21-32) mmol/L Anion Gap (3-11) BUN (7-18) mg/dl Creatinine (0.6-1.4) mg/dl Est Cr Clr Drug Dosing ml/min Est GFR ( Amer) ml/min Est GFR (Non-Af Amer) ml/min BUN/Creatinine Ratio (10-20) Glucose (70-99) mg/dl Calcium (8.5-10.1) mg/dl Magnesium (1.8-2.4) mg/dl Total Bilirubin (0.2-1) mg/dl AST (15-37) U/L ALT (12-78) U/L Alkaline Phosphatase (45-117) U/L Total Creatine Kinase (39-308) U/L Troponin I (0-0.045) ng/ml NT-Pro-B Natriuret Pep (0-450) pg/ml Total Protein (6.4-8.2) gm/dl Albumin (3.4-5.0) gm/dl Globulin (2.5-4.0) gm/dl Albumin/Globulin Ratio (0.9-2) Lipase (73-393) U/L TSH (0.300-4.500) uIu/ml Urine Color Yellow Urine Appearance Clear (Clear) Urine pH 7.0 (4.5-7.5) Ur Specific [place] 1.013 (1.000-1.030) Urine Protein Negative (Negative) Urine Glucose (UA) Negative (Negative) Urine Ketones Negative (Negative) Urine Blood Negative (Negative) Urine Nitrite Negative (Negative) Urine Bilirubin Negative (Negative) Urine Urobilinogen Negative (Negative) Ur Leukocyte Esterase Trace H (Negative) Urine WBC (Auto) 5-10 H (0-5) /hpf Urine RBC (Auto) 0-4 (0-4) /hpf U Hyaline Cast (Auto) 1-5 (0-5) /lpf U Epithel Cells (Auto) 10-20 H (0-5) /lpf Urine Bacteria (Auto) 3+ H (Negative) Ethyl Alcohol mg/dL < 3.0 (0-3) mg/dl COVID-19 Eval Order SARS-CoV-2 (PCR) (Negative) 04/20/21 04/20/21 04/21/21 Range/Units 19:29 19:29 05:30 WBC 3.96 L (4.8-10.8) K/uL RBC 4.00 L (4.7-6.1) M/uL Hgb 12.2 L (14.0-18.0) g/dL Hct 36.2 L (42-52) % MCV 90.5 (80-100) fL MCH 30.5 (25-34) pg MCHC 33.7 (32-36) g/dL RDW Std Deviation 46.6 H (36.4-46.3) fL RDW Coeff of Levon 14.1 (11.5-14.5) % Plt Count 209 (130-400) K/uL MPV 9.5 (7.4-10.4) fL Immature Gran % (Auto) 0.0 % Neut % (Auto) 48.0 % Lymph % (Auto) 32.3 % Mayes % (Auto) 15.4 % Eos % (Auto) 4.0 % Baso % (Auto) 0.3 % Neut # (Auto) 1.90 (1.4-6.5) K/uL Lymph # (Auto) 1.28 (1.2-3.4) K/uL Mayes # (Auto) 0.61 H (0.11-0.59) K/uL Eos # (Auto) 0.16 (0-0.5) K/uL Baso # (Auto) 0.01 (0-0.2) K/uL Immature Gran # (Auto) 0.00 (0.00-0.02) K/uL PT (9.0-12.0) Seconds INR (0.9-1.1) Sodium (136-145) mmol/L Potassium (3.5-5.1) mmol/L Chloride (98-107) mmol/L Carbon Dioxide (21-32) mmol/L Anion Gap (3-11) BUN (7-18) mg/dl Creatinine (0.6-1.4) mg/dl Est Cr Clr Drug Dosing ml/min Est GFR ( Amer) ml/min Est GFR (Non-Af Amer) ml/min BUN/Creatinine Ratio (10-20) Glucose (70-99) mg/dl Calcium (8.5-10.1) mg/dl Magnesium (1.8-2.4) mg/dl Total Bilirubin (0.2-1) mg/dl AST (15-37) U/L ALT (12-78) U/L Alkaline Phosphatase (45-117) U/L Total Creatine Kinase (39-308) U/L Troponin I (0-0.045) ng/ml NT-Pro-B Natriuret Pep (0-450) pg/ml Total Protein (6.4-8.2) gm/dl Albumin (3.4-5.0) gm/dl Globulin (2.5-4.0) gm/dl Albumin/Globulin Ratio (0.9-2) Lipase (73-393) U/L TSH (0.300-4.500) uIu/ml Urine Color Urine Appearance (Clear) Urine pH (4.5-7.5) Ur Specific [place] (1.000-1.030) Urine Protein (Negative) Urine Glucose (UA) (Negative) Urine Ketones (Negative) Urine Blood (Negative) Urine Nitrite (Negative) Urine Bilirubin (Negative) Urine Urobilinogen (Negative) Ur Leukocyte Esterase (Negative) Urine WBC (Auto) (0-5) /hpf Urine RBC (Auto) (0-4) /hpf U Hyaline Cast (Auto) (0-5) /lpf U Epithel Cells (Auto) (0-5) /lpf Urine Bacteria (Auto) (Negative) Ethyl Alcohol mg/dL (0-3) mg/dl COVID-19 Eval Order Covid19 at [facility] SARS-CoV-2 (PCR) NEGATIVE (Negative) 04/21/21 04/21/21 Range/Units 05:30 05:30 WBC (4.8-10.8) K/uL RBC (4.7-6.1) M/uL Hgb (14.0-18.0) g/dL Hct (42-52) % MCV (80-100) fL MCH (25-34) pg MCHC (32-36) g/dL RDW Std Deviation (36.4-46.3) fL RDW Coeff of Levon (11.5-14.5) % Plt Count (130-400) K/uL MPV (7.4-10.4) fL Immature Gran % (Auto) % Neut % (Auto) % Lymph % (Auto) % Mayes % (Auto) % Eos % (Auto) % Baso % (Auto) % Neut # (Auto) (1.4-6.5) K/uL Lymph # (Auto) (1.2-3.4) K/uL Mayes # (Auto) (0.11-0.59) K/uL Eos # (Auto) (0-0.5) K/uL Baso # (Auto) (0-0.2) K/uL Immature Gran # (Auto) (0.00-0.02) K/uL PT 21.5 H (9.0-12.0) Seconds INR 2.3 H (0.9-1.1) Sodium 140 (136-145) mmol/L Potassium 4.3 (3.5-5.1) mmol/L Chloride 105 (98-107) mmol/L Carbon Dioxide 34 H (21-32) mmol/L Anion Gap 1.0 L (3-11) BUN 17 (7-18) mg/dl Creatinine 0.77 (0.6-1.4) mg/dl Est Cr Clr Drug Dosing 220.3 ml/min Est GFR ( Amer) 137.2 ml/min Est GFR (Non-Af Amer) 118.4 ml/min BUN/Creatinine Ratio 22.5 H (10-20) Glucose 94 (70-99) mg/dl Calcium 8.5 (8.5-10.1) mg/dl Magnesium (1.8-2.4) mg/dl Total Bilirubin (0.2-1) mg/dl AST (15-37) U/L ALT (12-78) U/L Alkaline Phosphatase (45-117) U/L Total Creatine Kinase (39-308) U/L Troponin I (0-0.045) ng/ml NT-Pro-B Natriuret Pep (0-450) pg/ml Total Protein (6.4-8.2) gm/dl Albumin (3.4-5.0) gm/dl Globulin (2.5-4.0) gm/dl Albumin/Globulin Ratio (0.9-2) Lipase (73-393) U/L TSH (0.300-4.500) uIu/ml Urine Color Urine Appearance (Clear) Urine pH (4.5-7.5) Ur Specific [place] (1.000-1.030) Urine Protein (Negative) Urine Glucose (UA) (Negative) Urine Ketones (Negative) Urine Blood (Negative) Urine Nitrite (Negative) Urine Bilirubin (Negative) Urine Urobilinogen (Negative) Ur Leukocyte Esterase (Negative) Urine WBC (Auto) (0-5) /hpf Urine RBC (Auto) (0-4) /hpf U Hyaline Cast (Auto) (0-5) /lpf U Epithel Cells (Auto) (0-5) /lpf Urine Bacteria (Auto) (Negative) Ethyl Alcohol mg/dL (0-3) mg/dl COVID-19 Eval Order SARS-CoV-2 (PCR) (Negative) Imaging Data Radiologist's Impression: Chest X-Ray 04/20/21 16:10 XR chest 1V portable CLINICAL HISTORY: sob COMPARISON STUDY: March 11, 2021 FINDINGS: No pneumothorax. No pleural effusion. No large infiltrates or consolidative lesions are seen. Evaluation is limited due to patient's body habitus. Cardiomediastinal silhouette remains mildly enlarged. 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 No significant pulmonary vascular congestion.. Osseous structures: unremarkable Midline sternotomy wires are again seen. IMPRESSION: 1. Stable cardiomegaly. Limited evaluation due to patient body habitus. ACT 112: Negative or not required by law. The above report was generated using voice recognition software. It may contain grammatical, syntax or spelling errors. Electronically signed by: Jesusita Jin DO 04/20/2021 4:59 PM Abdomen/Pelvis CT 04/20/21 16:[address] WITHOUT CONTRAST CT DOSE: 5658.16 mGy.cm HISTORY: right flank pain TECHNIQUE: Multiaxial CT images of the abdomen and pelvis were performed without contrast. A dose lowering technique was utilized adhering to the principles of ALARA. COMPARISON STUDY: Abdomen and pelvis CT 04/08/2021. FINDINGS: The lung bases are clear. No pneumoperitoneum. No pneumatosis. No fractures within the visualized osseous structures. There are poststernotomy changes. Hepatic steatosis. Cholecystectomy. The unenhanced spleen, adrenal glands, pancreas, and kidneys are unremarkable. No hydronephrosis. No retroperitoneal lymphadenopathy. The patient's known chronic aortic dissection is not well visualized on this noncontrast study. Prior midline abdominal wall incision. The bladder is unremarkable. No pelvic free fluid. Suboptimal evaluation for bowel pathology due to the lack of intravenous and oral contrast. However, there is no definite bowel wall thickening or obstruction. Moderate well-formed stool seen within the colon. The appendix is not identified and reportedly surgically absent. IMPRESSION: 1. No renal or ureteral stones. No hydronephrosis. 2. No definite bowel wall thickening or obstruction. 3. The patient's known chronic aortic dissection is not well visualized on this examination. ACT 112: Negative or not required by law. Electronically signed by: Bert Schaffer M.D. 04/20/2021 5:43 PM ECG Data Attestation: I personally reviewed and interpreted this ECG as follows: Rate (beats per minute): 68 Rhythm: + normal sinus ECG Intervals/blocks: + IVCD and + Normal QT ECG [place]: + Normal ECG ST segments: + Nonspecific ST abnormalities MDM Narrative This is a 35 yo with significant past hx who was referred in by Dr. Dupont due to worsening volume overload with 16 lb wt gain in the last week despite increasing use of diuretics. Labs reassuring. No evidence of pulmonary edema. VS stable. Discussed results with patient. Case discussed with hospitalist. CT to r/o kidney stone negative. No evidence of KARAN. An order was placed for continuous cardiac monitoring. The monitor shows a rate of _70_ with __paced_ rhythm. Impression & Plan Bilateral edema of lower extremity, Volume overload Discharge Plan Visit Data Chief Complaint: Swelling/Edema to Extremity Stated Complaint: both legs/feet swelling, flank pain ED Provider: Evelyn Dinero Discharge Problem: Bilateral edema of lower extremity, Volume overload Patient Disposition: Admitted As Inpatient Discharge Instructions Interventions: ED Discharge Assessment Last Done: 04/20/21 23:05 Discharge Problem: Volume overload Qualifiers: Hypervolemia type: other Qualified Code(s): E87.79 - Other fluid overload
[2021-04-20] MEDS ORDERED: HYDROmorphone INJ 1 MG/ML SYRINGE IV STA (20:20)
[2021-04-20] MEDS ORDERED: OPTIRAY 320 125ml IV ONE (20:50)
--- NOTE | 2021-04-20 21:06 | CT Scan Report ---
CT angio abdomen pelvis w con HISTORY: worsening flank pain, hx aortic dissection TECHNIQUE: [address] images of the abdomen and pelvis were performed following the intravenous administration of contrast to evaluate the aorta. Maximal intensity projection images were also obtai nikolas. COMPARISON STUDY: Abdomen and pelvis CT 04/20/2021. FINDINGS: There are poststernotomy changes and a partially visualized aortic valve prosthesis. The he art is normal in size. No change in the dissection involving the visualized ascending thoracic aorta, abdominal aorta, and proximal right common iliac artery. Both lumens remain opacified. The abdominal aorta and iliac arteries are normal in caliber. No evidence for an aneurysm. The celiac, superior me senteric, inferior mesenteric, and bilateral renal arteries are patent. Of note, there are 3 similar- appearing right renal arteries and a single left renal artery. The lung bases are clear. No pneumoperitoneum. No pneumatosis. No fractures within the visualized oss eous structures. Hepatic steatosis. Cholecystectomy. The spleen, adrenal glands, pancreas, and kidney s are within normal limits. No hydronephrosis. No retroperitoneal lymphadenopathy. Evidence for prior midline abdominal incision. Normal bladder. No bowel wall thickening or obstruction. The appendix is not identified and reportedly surgically absent. IMPRESSION: 1. No change in the chronic aortic dissection. 2. No bowel wall thickening or obstruction. 3. No hydronephrosis. 4. Cholecystectomy. 5. Hepatic steatosis. ACT 112: Negative or not required by law. Electronically signed by: Bert Schaffer M.D. 04/20/2021 9:05 PM
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
[2021-04-20] MEDS ORDERED: amLODIPine BESYLATE 5 MG TAB PO ONE (21:48)
--- NOTE | 2021-04-20 22:36 | Ultrasound Report ---
BILATERAL LOWER EXTREMITY VENOUS DOPPLER HISTORY: Bilateral leg pain COMPARISON STUDY: None. FINDINGS: There is normal compressibility, flow, and augmentation within the right lower extremity de ep venous system. The left common femoral vein is patent. Small amount of linear echogenic stranding within the mid left superficial femoral vein consistent with chronic nonocclusive thrombus. The left popliteal vein and left calf vessels are patent. IMPRESSION: 1. Small amount of linear echogenic stranding within the mid left superficial femoral vein consistent with chronic nonocclusive DVT. 2. No acute DVT within the right or left lower extremity. ACT 112: Negative or not required by law. Electronically signed by: Bert Schaffer M.D. 04/20/2021 10:35 PM
[2021-04-20] MEDS ORDERED: PROMETHAZINE HCL 12.5 MG in SODIUM CHLORIDE 0.9% 50 ML IV PRN (23:29)
[2021-04-20] MEDS ORDERED: POTASSIUM CHLORIDE CRTAB 20 MEQ TABCR PO STA (23:29)
[2021-04-20] MEDS ORDERED: ACETAMINOPHEN 325 MG TAB PO PRN (23:29)
[2021-04-20] MEDS ORDERED: ALBUMIN 25% 12.5 GM/50 ML VIAL IV ONE (23:29)
[2021-04-21] MEDS: oxyCODONE HCL IR 5 MG TAB (IMMEDIATE RELEASE) PO PRN ×3 (00:21→21:01)
[2021-04-21] MEDS ORDERED: WARFARIN SOD 2 MG TAB PO ONE (01:26)
[2021-04-21] MEDS: HYDROmorphone INJ 1 MG/ML SYRINGE IV PRN ×3 (02:28→18:09)
[2021-04-21 05:51] LABS: Basophils # (auto) 0.01 K/uL (0-0.2); Basophils % (auto) 0.3 %; Eosinophils # (auto) 0.16 K/uL (0-0.5); Hematocrit (blood only) 36.2 % (42-52); Hemoglobin 12.2 g/dL (14.0-18.0); Lymphocytes # (auto) 1.28 K/uL (1.2-3.4); Lymphocytes % (auto) 32.3 %; Mean Corpuscular Hemoglobin 30.5 pg (25-34); Mean Corpuscular Hgb Conc 33.7 g/dL (32-36); Mean Corpuscular Volume 90.5 fL (80-100); Mean Platelet Volume 9.5 fL (7.4-10.4); Monocytes # (auto) 0.61 K/uL (0.11-0.59); Monocytes % (auto) 15.4 %; Platelet Count 209 K/uL (130-400); RDW Coefficient of Variation 14.1 % (11.5-14.5); RDW Standard Deviation 46.6 fL (36.4-46.3); White Blood Count 3.96 K/uL (4.8-10.8)
[2021-04-21 06:14] LABS: INR 2.3 (0.9-1.1); Prothrombin Time 21.5 Seconds (9.0-12.0)
[2021-04-21 06:25] LABS: BUN Creatinine Ratio 22.5 (10-20); Calcium 8.5 mg/dl (8.5-10.1); Creatinine Clr Calc Pharmacy 220.3 ml/min; Est GFR (African American) 137.2 ml/min; Est GFR (Non-African American) 118.4 ml/min; Potassium 4.3 mmol/L (3.5-5.1)
[2021-04-21] MEDS ORDERED: ALBUMIN 25% 12.5 GM/50 ML VIAL IV ONE (08:00)
[2021-04-21] MEDS ORDERED: FUROSEMIDE 40 MG/4 ML VIAL IV ONE (08:00)
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
[2021-04-21] MEDS: amLODIPine BESYLATE 5 MG TAB PO SCH ×2 (09:52→21:02)
[2021-04-21] MEDS: DULoxetine HCL 30 MG CAP PO SCH (09:52)
[2021-04-21] MEDS: MULTIVITAMIN TAB PO SCH (09:53)
[2021-04-21] MEDS: METOPROLOL SUCC 50MG EXT REL TAB PO SCH (09:53)
[2021-04-21] MEDS: LOSARTAN POTASSIUM 50 MG TAB PO SCH (09:54)
[2021-04-21] MEDS: CLOPIDOGREL BISULFATE 75 MG TAB PO SCH (09:54)
[2021-04-21] MEDS: DULoxetine HCL 60 MG CAP PO SCH (09:55)
[2021-04-21] MEDS: POTASSIUM CHLORIDE CRTAB 20 MEQ TABCR PO SCH ×2 (09:55→21:02)
[2021-04-21] MEDS: SPIRONOLACTONE 25 MG TAB PO SCH (10:58)
[2021-04-21] MEDS: cefTRIAXone SODIUM 2,000 MG in DEXTROSE 5% 50 ML IV SCH (10:58)
--- NOTE | 2021-04-21 14:29 | Hospitalist Progress Note ---
Date of Service April 21, 2021 Assessment & Plan (1) Fluid retention: Acute diastolic heart failure -CTA:No change in the chronic aortic dissection. No bowel wall thickening or obstruction. No hydronephrosis. Cholecystectomy. Hepatic steatosis. -Recent ECHO:mild concentric LVH, septal motion abnormality consistent with LBBB, EF 55 to 60%. Mechanical aortic valve. Gradient is normal for this prosthetic aortic valve. No significant aortic valvular regurgitation. Continue IV Lasix 80 mg twice daily Started on Aldactone 25 mg daily Daily weight, I/Os, fluid restriction Monitor renal function/electrolytes Appreciate Cardiology Input Chronic nonocclusive DVT -Venous Doppler:Small amount of linear echogenic stranding within the mid left superficial femoral vein consistent with chronic nonocclusive DVT. No acute DVT within the right or left lower extremity. 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 Px Coumadin Code Status Full code Admission and Anticipated Discharge Date Admission Date: April 20, 2021 Subjective Patient is seen and examined at bedside States having chronic bilateral flank pain Leg swelling improved since admission Denies chest pain, shortness of breath, dizziness, nausea, abdominal pain Discussed with cardiology today Review of Systems Review of Systems: All systems reviewed & are unremarkable except as noted in HPI & below Physical Exam Physical Exam: Physical Exam: Vitals signs as noted above General Appearance:Morbidly Obese, no apparent distress Head: normocephalic, Atraumatic Eyes: normal inspection, EOMI Neck: supple, Trachea midline Respiratory/Chest: Decreased breath sounds, CTA Cardiovascular: S1, S2, + mechanical click, murmur Abdomen/GI:Soft, Non tender, Bowel sounds present Extremities/Musculoskeletal:normal inspection, B/L LE edema Neurologic/Psych:AAOX3, grossly no focal neurological deficits Skin: normal color, warm, + midline well-healed surgical scar Results & Data Results & Data ([facility]) Vital Signs (Past 12 Hours) Vital Signs Temp Pulse Resp BP Pulse Ox 04/21/21 12:11 36.7 C 73 18 134/72 93 04/21/21 07:54 36.5 C 69 20 119/71 94 04/21/21 04:00 36.6 C 73 18 118/65 94 Laboratory Results Short CBC 04/20/21 04/21/21 Range/Units 15:57 05:30 WBC 4.66 L 3.96 L (4.8-10.8) K/uL Hgb 12.6 L 12.2 L (14.0-18.0) g/dL Hct 37.7 L 36.2 L (42-52) % Plt Count 234 209 (130-400) K/uL BMP 04/20/21 04/21/21 15:57 05:30 Sodium 139 140 Potassium 3.8 4.3 Chloride 104 105 Carbon Dioxide 29 34 H BUN 17 17 Creatinine 0.89 0.77 Glucose 103 H 94 Calcium 8.9 8.5 Cardiac Enzymes 04/20/21 04/20/21 Range/Units 15:57 15:57 Total Creatine Kinase 288 (39-308) U/L Troponin I < 0.015 (0-0.045) ng/ml Liver Function 04/20/21 Range/Units 15:57 Total Bilirubin 1.0 (0.2-1) mg/dl AST 44 H (15-37) U/L ALT 67 (12-78) U/L Alkaline Phosphatase 61 (45-117) U/L Albumin 3.9 (3.4-5.0) gm/dl Urine 04/20/21 Range/Units 16:15 Urine Color Yellow Urine Appearance Clear (Clear) Urine pH 7.0 (4.5-7.5) Ur Specific [place] 1.013 (1.000-1.030) Urine Protein Negative (Negative) Urine Glucose (UA) Negative (Negative)
[2021-04-21] MEDS: WARFARIN SOD 5 MG TAB PO SCH (18:10)
[2021-04-21] MEDS: FUROSEMIDE 80 MG in SYRINGE 0 ML IV SCH (21:01)
[2021-04-22] MEDS: oxyCODONE HCL IR 5 MG TAB (IMMEDIATE RELEASE) PO PRN ×3 (01:25→18:04)
[2021-04-22] MEDS ORDERED: SODIUM CHLORIDE 0.65% NA SOLN 45 ML (OCEAN) PRN ×2 (01:34→11:50)
[2021-04-22 09:21] LABS: BUN Creatinine Ratio 21.5 (10-20); Calcium 9.2 mg/dl (8.5-10.1); Creatinine Clr Calc Pharmacy 202.7 ml/min; Est GFR (African American) 133.1 ml/min; Est GFR (Non-African American) 114.8 ml/min; Magnesium 2.4 mg/dl (1.8-2.4); Potassium 3.7 mmol/L (3.5-5.1)
[2021-04-22] MEDS: LOSARTAN POTASSIUM 50 MG TAB PO SCH (09:21)
[2021-04-22] MEDS: amLODIPine BESYLATE 5 MG TAB PO SCH ×2 (09:21→20:07)
[2021-04-22] MEDS: POTASSIUM CHLORIDE CRTAB 20 MEQ TABCR PO SCH ×2 (09:21→20:07)
[2021-04-22 09:22] LABS: Hematocrit (blood only) 39.3 % (42-52); Mean Corpuscular Hemoglobin 29.7 pg (25-34); Mean Corpuscular Hgb Conc 33.1 g/dL (32-36); Mean Corpuscular Volume 89.9 fL (80-100); Platelet Count 260 K/uL (130-400); RDW Coefficient of Variation 14.1 % (11.5-14.5); Red Blood Count 4.37 M/uL (4.7-6.1); White Blood Count 4.64 K/uL (4.8-10.8)
[2021-04-22] MEDS: CLOPIDOGREL BISULFATE 75 MG TAB PO SCH (09:22)
[2021-04-22] MEDS: DULoxetine HCL 30 MG CAP PO SCH (09:22)
[2021-04-22] MEDS: MULTIVITAMIN TAB PO SCH (09:23)
[2021-04-22] MEDS: DULoxetine HCL 60 MG CAP PO SCH (09:23)
[2021-04-22] MEDS: SPIRONOLACTONE 25 MG TAB PO SCH (09:23)
[2021-04-22] MEDS: METOPROLOL SUCC 50MG EXT REL TAB PO SCH (09:24)
[2021-04-22] MEDS: FUROSEMIDE 80 MG in SYRINGE 0 ML IV SCH ×2 (09:25→18:06)
[2021-04-22] MEDS: cefTRIAXone SODIUM 2,000 MG in DEXTROSE 5% 50 ML IV SCH (09:29)
--- NOTE | 2021-04-22 10:18 | Cardiology Progress Note ---
Date of Service April 22, 2021 Assessment & Plan (1) Acute heart failure with preserved ejection fraction (HFpEF): Continue intravenous diuretic therapy and Aldactone 25 mg daily. Follow daily weight, fluid balance, GFR, and electrolytes. Consider transition of Lasix to torsemide at discharge. (2) Chronic thoracic aortic dissection: Stable/unchanged per CT angiography of the abdomen and pelvis on admission. (3) S/P AVR (aortic valve replacement): INR therapeutic. Continue warfarin and clopidogrel. (4) LBBB (left bundle branch block): Chronic. No dysrhythmias per review of telemetry. Preserved LV systolic function per most recent echocardiogram 03/2021. Admission and Anticipated Discharge Date Admission Date: April 21, 2021 Subjective Patient seen examined the bedside. Fluid balance negative more than 2 L overnight. Feeling better today. Renal function remained stable. Denies orthopnea or PND. Previously noted low back and flank pain somewhat improved. No palpitations, lightheadedness, or dizziness. Telemetry reveals sinus rhythm with heart rate ranging from 50-70 bpm. Tolerating diet medications. Empiric antibiotics initiated pending review of urine culture. Review of Systems Review of Systems: All systems reviewed & are unremarkable except as noted in Subjective Physical Exam Constitutional: well nourished and + obese; no acute distress and not ill appearing Respiratory: normal respiratory effort; no respiratory distress and no labored breathing Auscultation: no crackles, no rales, no rhonchi and no wheezes Cardiovascular: Heart Sounds: normal S1, normal S2, + click ([place] mechanical aortic valve closure click) and + murmur (1/6 midsystolic murmur heard best at the right second intercostal space) Vessels: no JVD Extremities: + edema (1+ bilateral pedal edema) Gastrointestinal (Abdomen): Inspection/Auscultation: abdomen normal to inspection and normal bowel sounds; abdomen not distended Percussion/Palpation: abdomen soft; abdomen nontender, no guarding and abdomen not rigid Neurologic: CN's II-XI intact bilaterally and moves all extremities; no focal motor deficits Motor/Sensory: no tremor Psychiatric: A+Ox3, euthymic affect Results & Data ([facility]) Vital Signs (Past 12 Hours) Vital Signs Temp Pulse Pulse Resp BP Pulse Ox 04/22/21 07:26 36.4 C L 62 18 124/70 96 04/22/21 04:00 36.5 C 68 18 127/73 95 04/21/21 23:46 70 04/21/21 23:00 36.8 C 78 18 115/71 94
[2021-04-22] MEDS: HYDROmorphone INJ 1 MG/ML SYRINGE IV PRN (13:59)
--- NOTE | 2021-04-22 16:52 | Hospitalist Progress Note ---
Date of Service April 22, 2021 Assessment & Plan (1) Fluid retention: Acute diastolic heart failure -CTA:No change in the chronic aortic dissection. No bowel wall thickening or obstruction. No hydronephrosis. Cholecystectomy. Hepatic steatosis. -Recent ECHO:mild concentric LVH, septal motion abnormality consistent with LBBB, EF 55 to 60%. Mechanical aortic valve. Gradient is normal for this prosthetic aortic valve. No significant aortic valvular regurgitation. Continue IV Lasix Continue Aldactone 25 mg daily Daily weight, I/Os, fluid restriction Monitor renal function/electrolytes Appreciate Cardiology Input Continue current medications Chronic nonocclusive DVT -Venous Doppler:Small amount of linear echogenic stranding within the mid left superficial femoral vein consistent with chronic nonocclusive DVT. No acute DVT within the right or left lower extremity. Continue Coumadin Hypertension Continue amlodipine, losartan, metoprolol Monitor H/O Congenital bicuspid aortic valve Ascending aortic dissection S/P surgery Chronic LBBB Mechanical AVR Monitor INR: 2.0 Continue Coumadin, metoprolol, Plavix Suspected UTI Urine culture : Alpha strep--Likely contaminant Received Rocephin Tobacco abuse Uses intermittently Set Rider to quit DVT Px Coumadin Code Status Full code Admission and Anticipated Discharge Date Admission Date: April 21, 2021 Subjective Patient is seen and examined at bedside States having some nasal dryness Leg swelling continues to improve Lower back, flank pain is improving as well No other complaints Denies chest pain, shortness of breath, dizziness, nausea, abdominal pain Review of Systems Review of Systems: All systems reviewed & are unremarkable except as noted in HPI & below Physical Exam Physical Exam: Physical Exam: Vitals signs as noted above General Appearance:Morbidly Obese, no apparent distress Head: normocephalic, Atraumatic Eyes: normal inspection, EOMI Neck: supple, Trachea midline Respiratory/Chest: Decreased breath sounds, CTA Cardiovascular: S1, S2, + mechanical click, murmur Abdomen/GI:Soft, Non tender, Bowel sounds present Extremities/Musculoskeletal:normal inspection, B/L LE edema Neurologic/Psych:AAOX3, grossly no focal neurological deficits Skin: normal color, warm, + midline well-healed surgical scar Results & Data Results & Data ([facility]) Vital Signs (Past 12 Hours) Vital Signs Temp Pulse Resp BP Pulse Ox 04/22/21 15:00 36.6 C 88 22 155/75 H 96 04/22/21 12:23 36.4 C L 77 20 130/77 95 04/22/21 07:26 36.4 C L 62 18 124/70 96 Laboratory Results Short CBC 04/22/21 Range/Units 08:23 WBC 4.64 L (4.8-10.8) K/uL Hgb 13.0 L (14.0-18.0) g/dL Hct 39.3 L (42-52) % Plt Count 260 (130-400) K/uL BMP 04/22/21 08:23 Sodium 137 Potassium 3.7 Chloride 103 Carbon Dioxide 29 BUN 18 Creatinine 0.83 Glucose 116 H Calcium 9.2
[2021-04-22] MEDS: WARFARIN SOD 5 MG TAB PO SCH (18:05)
[2021-04-23] MEDS: oxyCODONE HCL IR 5 MG TAB (IMMEDIATE RELEASE) PO PRN ×4 (01:08→20:55)
[2021-04-23 08:40] LABS: INR 2.2 (0.9-1.1); Prothrombin Time 20.9 Seconds (9.0-12.0)
[2021-04-23 08:49] LABS: BUN Creatinine Ratio 22.9 (10-20); Calcium 9.1 mg/dl (8.5-10.1); Creatinine Clr Calc Pharmacy 194.5 ml/min; Est GFR (African American) 131.1 ml/min; Est GFR (Non-African American) 113.1 ml/min; Potassium 4.1 mmol/L (3.5-5.1)
[2021-04-23] MEDS: amLODIPine BESYLATE 5 MG TAB PO SCH ×2 (08:53→20:52)
[2021-04-23] MEDS: DULoxetine HCL 30 MG CAP PO SCH (08:54)
[2021-04-23] MEDS: POTASSIUM CHLORIDE CRTAB 20 MEQ TABCR PO SCH ×2 (08:54→20:53)
[2021-04-23] MEDS: METOPROLOL SUCC 50MG EXT REL TAB PO SCH (08:55)
[2021-04-23] MEDS: CLOPIDOGREL BISULFATE 75 MG TAB PO SCH (08:55)
[2021-04-23] MEDS: DULoxetine HCL 60 MG CAP PO SCH (08:55)
[2021-04-23] MEDS: MULTIVITAMIN TAB PO SCH (08:56)
[2021-04-23] MEDS: LOSARTAN POTASSIUM 50 MG TAB PO SCH (08:56)
[2021-04-23] MEDS: SPIRONOLACTONE 25 MG TAB PO SCH (08:57)
[2021-04-23] MEDS: FUROSEMIDE 80 MG in SYRINGE 0 ML IV SCH (08:58)
[2021-04-23] MEDS: cefTRIAXone SODIUM 2,000 MG in DEXTROSE 5% 50 ML IV SCH (08:58)
--- NOTE | 2021-04-23 09:49 | Cardiology Progress Note ---
Date of Service April 23, 2021 Assessment & Plan (1) Acute heart failure with preserved ejection fraction (HFpEF): Continue intravenous diuretic therapy today and Aldactone 25 mg daily. Volume status improving. Follow daily weight, fluid balance, GFR, and electrolytes. Patient reports he has been taking furosemide 40 mg daily, increased to 80 mg for several days prior to admission without significant improvement. He apparently had been taking spironolactone for several weeks, and then stopped about 1-2 weeks ago, as instructions were to "take for 30 days and no refills". May benefit from trial of torsemide on discharge with spironolactone. (2) Chronic thoracic aortic dissection: Stable/unchanged per CT angiography of the abdomen and pelvis on admission. (3) S/P AVR (aortic valve replacement): INR therapeutic. Continue warfarin and clopidogrel. (4) LBBB (left bundle branch block): Chronic. No dysrhythmias per review of telemetry. Preserved LV systolic function per most recent echocardiogram 03/2021. Case discussed with Dr. Dupont. Admission and Anticipated Discharge Date Admission Date: April 21, 2021 Supervising Physician Co-Signing Physician Notes Patient was seen and personally examined. Chart medications and telemetry reviewed. Patient clinically improved since hospitalization with greater than 6 kg diuresis. Patient ambulating in the hallway without difficulty lower extrem ity edema has resolved. Plan: Patient stable for discharge. Would discharge on torsemide 10 [address] daily in place of furosemide with room to increase continue spironolactone 25 mg/day CHF instructions once again emphasized including daily weights and management Patient scheduled with cardiology as an outpatient Subjective Patient reports feeling much improved today. Yesterday he walked 18 labs around the unit with improved dyspnea compared to admission. B/L pedal edema noted, but improved from admission. He reports his leg edema is now at baseline. No chest pain. No orthopnea, PND or edema. Review of Systems Review of Systems: All systems reviewed & are unremarkable except as noted in HPI & below Physical Exam Constitutional: well nourished and + obese; no acute distress and not ill appearing Respiratory: normal respiratory effort; no respiratory distress and no labored breathing Auscultation: no crackles, no rales, no rhonchi and no wheezes Cardiovascular: Heart Sounds: normal S1, normal S2, + click ([place] mechanical aortic valve closure click) and + murmur (1/6 midsystolic murmur heard best at the right second intercostal space) Vessels: no JVD Extremities: + edema (1+ bilateral pedal edema) Gastrointestinal (Abdomen): Inspection/Auscultation: abdomen normal to inspection and normal bowel sounds; abdomen not distended Percussion/Palpation: abdomen soft; abdomen nontender, no guarding and abdomen not rigid Neurologic: CN's II-XI intact bilaterally and moves all extremities; no focal motor deficits Motor/Sensory: no tremor Psychiatric: A+Ox3, euthymic affect Results & Data ([facility]) Vital Signs (Past 12 Hours) Vital Signs Temp Pulse Pulse Resp BP Pulse Ox 04/23/21 07:43 36.4 C L 66 18 163/53 H 95 04/23/21 04:11 36.6 C 71 18 124/76 98 04/23/21 04:10 90 04/22/21 23:00 36.6 C 72 18 142/74 H 96 Laboratory Results 04/23/21 04/23/21 Range/Units 08:08 08:08 PT 20.9 H (9.0-12.0) Seconds INR 2.2 H (0.9-1.1) Sodium 137 (136-145) mmol/L Potassium 4.1 (3.5-5.1) mmol/L Chloride 103 (98-107) mmol/L Carbon Dioxide 30 (21-32) mmol/L Anion Gap 4.0 (3-11) BUN 20 H (7-18) mg/dl Creatinine 0.86 (0.6-1.4) mg/dl Est Cr Clr Drug Dosing 194.5 ml/min Est GFR ( Amer) 131.1 ml/min Est GFR (Non-Af Amer) 113.1 ml/min BUN/Creatinine Ratio 22.9 H (10-20) Glucose 105 H (70-99) mg/dl Calcium 9.1 (8.5-10.1) mg/dl Diagnostic Findings Telemetry reviewed: NSR with conduction delay, heart rates ranging 70-80's. No arrhythmias. Medications Administered Current Inpatient Medications Acetaminophen (Acetaminophen 325 Mg Tab) 650 mg PO Q4H PRN PRN Reason: Pain or Fever Stop: 05/20/21 23:28 Amlodipine Besylate (Amlodipine Besylate 5 Mg Tab) 5 mg PO BID [facility] Stop: 05/21/21 08:59 Last Admin: 04/23/21 08:53 Dose: 5 mg Documented by: Clopidogrel Bisulfate (Clopidogrel Bisulfate 75 Mg Tab) 75 mg PO [facility] Stop: 05/21/21 08:59 Last Admin: 04/23/21 08:55 Dose: 75 mg Documented by: Duloxetine HCl (Duloxetine Hcl 60 Mg Cap) 60 mg PO [facility] Stop: 05/21/21 08:59 Last Admin: 04/23/21 08:55 Dose: 60 mg Documented by: Duloxetine HCl (Duloxetine Hcl 30 Mg Cap) 30 mg PO [facility] Stop: 05/21/21 08:59 Last Admin: 04/23/21 08:54 Dose: 30 mg Documented by: Hydromorphone HCl (Hydromorphone Inj 1 Mg/Ml Syringe) 1 mg IV Q6H PRN PRN Reason: Pain Stop: 05/04/21 23:28 Last Admin: 04/22/21 13:59 Dose: 1 mg Documented by: Promethazine HCl 12.5 mg/ (Sodium Chloride) 50.5 mls @ 202 mls/hr IV Q6H PRN PRN Reason: Nausea And Vomiting Stop: 05/20/21 23:28 Furosemide 80 mg/ Syringe 8 mls @ 4 mls/min IV BID17 [facility] Stop: 05/21/21 20:59 Last Admin: 04/23/21 08:58 Dose: 4 mls/min Documented by: Ceftriaxone Sodium 2,000 mg/ (Dextrose) 70 mls @ 100 mls/hr IV Q24H [facility]; Protocol Stop: 04/23/21 10:41 Last Admin: 04/23/21 08:58 Dose: 100 mls/hr Documented by: Losartan Potassium (Losartan Potassium 50 Mg Tab) 100 mg PO [facility] Stop: 05/21/21 08:59 Last Admin: 04/23/21 08:56 Dose: 100 mg Documented by: Metoprolol Succinate (Metoprolol Succ 50mg Ext Rel Tab) 100 mg PO [facility] Stop: 05/21/21 08:59 Last Admin: 04/23/21 08:55 Dose: 100 mg Documented by: Multivitamins (Multivitamin Tab) 1 tab PO DAILY [facility] Stop: 05/21/21 08:59 Last Admin: 04/23/21 08:56 Dose: 1 tab Documented by: Oxycodone HCl (Oxycodone Hcl Ir 5 Mg Tab (Immediate Release)) 5 - 10 mg PO QID PRN PRN Reason: Pain Stop: 05/04/21 23:28 Last Admin: 04/23/21 08:52 Dose: 10 mg Documented by: Potassium Chloride (Potassium Chloride Crtab 20 Meq Tabcr) 20 meq PO BID [facility] Stop: 05/21/21 08:59 Last Admin: 04/23/21 08:54 Dose: 20 meq Documented by: Sodium Chloride (Sodium Chloride 0.65% Na Soln 45 Ml ([place])) 2 sprays NA TID PRN PRN Reason: Nasal dryness Stop: 05/22/21 01:33 Last Admin: 04/22/21 20:13 Dose: 2 sprays Documented by: Sodium Chloride (Sodium Chloride 0.65% Na Soln 45 Ml ([place]avor)) 2 sprays NA Q6H PRN PRN Reason: Dryness Stop: 05/22/21 11:49 Spironolactone (Spironolactone 25 Mg Tab) 25 mg PO QAM [facility] Stop: 05/21/21 09:14 Last Admin: 04/23/21 08:57 Dose: 25 mg Documented by: Warfarin Sodium (Warfarin Sod 5 Mg Tab) 15 mg PO [id number]@1600 [facility] Stop: 05/21/21 15:59 Last Admin: 04/22/21 18:05 Dose: 15 mg Documented by: Warfarin Sodium (Warfarin Sod 10 Mg Tab) 10 mg PO [id number]@1600 [facility] Stop: 05/23/21 15:59
[2021-04-23] MEDS ORDERED: WARFARIN SOD 10 MG TAB PO SCH (16:00)
--- NOTE | 2021-04-23 17:27 | Hospitalist Progress Note ---
Date of Service April 23, 2021 Assessment & Plan (1) Fluid retention: Acute diastolic heart failure -CTA:No change in the chronic aortic dissection. No bowel wall thickening or obstruction. No hydronephrosis. Cholecystectomy. Hepatic steatosis. -Recent ECHO:mild concentric LVH, septal motion abnormality consistent with LBBB, EF 55 to 60%. Mechanical aortic valve. Gradient is normal for this prosthetic aortic valve. No significant aortic valvular regurgitation. Continue IV Lasix>>Transitioned to Torsemide Continue Aldactone 25 mg daily Daily weight, I/Os, fluid restriction Monitor renal function/electrolytes Appreciate Cardiology Input Needs follow-up with cardiology upon discharge Chronic nonocclusive DVT -Venous Doppler:Small amount of linear echogenic stranding within the mid left superficial femoral vein consistent with chronic nonocclusive DVT. No acute DVT within the right or left lower extremity. 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 Px Coumadin Code Status Full code Disposition Plan to discharge home tomorrow Admission and Anticipated Discharge Date Admission Date: April 21, 2021 Subjective Patient is seen and examined at bedside States feeling well today No new complaints Leg swelling continues to improve Lower back, flank pain is better Denies chest pain, shortness of breath, dizziness, nausea, abdominal pain, dizziness Review of Systems Review of Systems: All systems reviewed & are unremarkable except as noted in HPI & below Physical Exam Physical Exam: Physical Exam: Vitals signs as noted above General Appearance:Morbidly Obese, no apparent distress Head: normocephalic, Atraumatic Eyes: normal inspection, EOMI Neck: supple, Trachea midline Respiratory/Chest: Decreased breath sounds, CTA Cardiovascular: S1, S2, + mechanical click, murmur Abdomen/GI:Soft, Non tender, Bowel sounds present Extremities/Musculoskeletal:normal inspection, B/L LE edema Neurologic/Psych:AAOX3, grossly no focal neurological deficits Skin: normal color, warm, + midline well-healed surgical scar Results & Data Results & Data ([facility]) Vital Signs (Past 12 Hours) Vital Signs Temp Pulse Resp BP BP Pulse Ox 04/23/21 16:00 36.6 C 73 18 108/58 L 99 04/23/21 11:46 36.8 C 67 18 161/67 H 94 04/23/21 07:43 36.4 C L 66 18 163/53 H 95 Laboratory Results [facility] 04/23/21 08:08 Sodium 137 Potassium 4.1 Chloride 103 Carbon Dioxide 30 BUN 20 H Creatinine 0.86 Glucose 105 H Calcium 9.1
[2021-04-24] MEDS: oxyCODONE HCL IR 5 MG TAB (IMMEDIATE RELEASE) PO PRN (03:25)
[2021-04-24 05:12] VITALS: O2SAT 95
[2021-04-24 06:34] LABS: INR 2.4 (0.9-1.1); Prothrombin Time 22.8 Seconds (9.0-12.0)
[2021-04-24 07:04] LABS: BUN Creatinine Ratio 24.7 (10-20); Calcium 8.7 mg/dl (8.5-10.1); Creatinine Clr Calc Pharmacy 213.9 ml/min; Est GFR (African American) 136.5 ml/min; Est GFR (Non-African American) 117.8 ml/min; Magnesium 2.5 mg/dl (1.8-2.4); Potassium 4.5 mmol/L (3.5-5.1)
[2021-04-24 07:20] VITALS: BP 104/65; TEMP 97.5
[2021-04-24] MEDS: LOSARTAN POTASSIUM 50 MG TAB PO SCH (08:25)
[2021-04-24] MEDS: CLOPIDOGREL BISULFATE 75 MG TAB PO SCH (08:25)
[2021-04-24] MEDS: amLODIPine BESYLATE 5 MG TAB PO SCH (08:25)
[2021-04-24] MEDS: DULoxetine HCL 60 MG CAP PO SCH (08:25)
[2021-04-24] MEDS: DULoxetine HCL 30 MG CAP PO SCH (08:25)
[2021-04-24] MEDS: POTASSIUM CHLORIDE CRTAB 20 MEQ TABCR PO SCH (08:26)
[2021-04-24] MEDS: MULTIVITAMIN TAB PO SCH (08:26)
[2021-04-24] MEDS: SPIRONOLACTONE 25 MG TAB PO SCH (08:26)
[2021-04-24] MEDS: METOPROLOL SUCC 50MG EXT REL TAB PO SCH (08:26)
[2021-04-24] MEDS ORDERED: TORSEMIDE 10 MG TAB PO SCH (09:00)
--- NOTE | 2021-04-24 09:36 | Cardiology Progress Note ---
Date of Service April 24, 2021 Assessment & Plan (1) Acute heart failure with preserved ejection fraction (HFpEF): Continue intravenous diuretic therapy today and Aldactone 25 mg daily. Volume status improving. Follow daily weight, fluid balance, GFR, and electrolytes. Patient reports he has been taking furosemide 40 mg daily, increased to 80 mg for several days prior to admission without significant improvement. Patient to be discharged on combination of spironolactone 25 mg/day and torsemide 10 mg p.o. daily. Strict CHF instructions given. Torsemide may require increase Cardiology follow-up arranged as outpatient (2) Chronic thoracic aortic dissection: Stable/unchanged per CT angiography of the abdomen and pelvis on admission. (3) S/P AVR (aortic valve replacement): INR therapeutic. Continue warfarin and clopidogrel. (4) LBBB (left bundle branch block): Chronic. No dysrhythmias per review of telemetry. Preserved LV systolic function per most recent echocardiogram 03/2021. Admission and Anticipated Discharge Date Admission Date: April 21, 2021 Subjective Patient was seen and examined, chart, medications, telemetry reviewed. Patient ambulatory in the hallway this morning feels well. Lower extremity edema substantially improved. No worsening shortness of breath. No dizziness or lightheadedness. No arrhythmias on telemetry Review of Systems Review of Systems: All systems reviewed & are unremarkable except as noted in HPI & below Physical Exam Constitutional: + obese Eyes: PERRL, conjunctivae normal, anicteric sclerae ENMT: external ear and nose normal, oropharynx normal Mild facial abrasions healing Neck: trachea midline, no thyromegaly Respiratory: normal respiratory effort, lungs clear to auscultation Cardiovascular: Rate/Rhythm: regular rate and regular rhythm Heart Sounds: normal S1, normal S2 ([place] mechanical valve sounds throughout the precordium) and + murmur (Grade 1-2 or 6 systolic no diastolic) Vessels: no JVD Extremities: no edema Chest (Breasts): Additional Comments: Midline incision well-healed Gastrointestinal (Abdomen): Percussion/Palpation: abdomen soft; abdomen nontender Musculoskeletal: no cyanosis or clubbing, extremities motor strength 5/5 Neurologic: PERRL, EOMI, accommodation nl, no face palsy, no dysarthria Results & Data ([facility]) Vital Signs (Past 12 Hours) Vital Signs Temp Pulse Pulse Resp BP BP Pulse Ox 04/24/21 07:32 53 L 04/24/21 07:19 36.4 C L 72 16 104/65 95 04/24/21 05:12 36.5 C 74 18 113/68 95 04/24/21 00:00 70 04/23/21 23:17 36.7 C 74 20 108/66 96 Laboratory Results Laboratory Results - last 24 hr 04/24/21 04/24/21 05:51 05:51 PT 22.8 H INR 2.4 H Sodium 137 Potassium 4.5 Chloride 107 Carbon Dioxide 29 Anion Gap 1.0 L BUN 19 H Creatinine 0.78 Est Cr Clr Drug Dosing 213.9 Est GFR ( Amer) 136.5 Est GFR (Non-Af Amer) 117.8 BUN/Creatinine Ratio 24.7 H Glucose 86 Calcium 8.7 Magnesium 2.5 H
--- NOTE | 2021-04-24 10:43 | Hospitalist Progress Note ---
Date of Service April 24, 2021 Assessment & Plan (1) Fluid retention: Acute diastolic heart failure -CTA:No change in the chronic aortic dissection. No bowel wall thickening or obstruction. No hydronephrosis. Cholecystectomy. Hepatic steatosis. -Recent ECHO:mild concentric LVH, septal motion abnormality consistent with LBBB, EF 55 to 60%. Mechanical aortic valve. Gradient is normal for this prosthetic aortic valve. No significant aortic valvular regurgitation. Continue IV Lasix>>Transitioned to Torsemide Continue Aldactone 25 mg daily Daily weight, I/Os, fluid restriction Monitor renal function/electrolytes Appreciate Cardiology Input Needs follow-up with cardiology upon discharge Continue current medications Low Salt diet Chronic nonocclusive DVT -Venous Doppler:Small amount of linear echogenic stranding within the mid left superficial femoral vein consistent with chronic nonocclusive DVT. No acute DVT within the right or left lower extremity. 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 Px Coumadin Code Status Full code Disposition Plan to discharge home today Admission and Anticipated Discharge Date Admission Date: April 21, 2021 Subjective Patient is seen and examined at bedside No new complaints Eager to get discharged Leg swelling improved Chronic Lower back, flank pain is controlled Denies chest pain, shortness of breath, dizziness, nausea, abdominal pain, dizziness Review of Systems Review of Systems: All systems reviewed & are unremarkable except as noted in HPI & below Physical Exam Physical Exam: Physical Exam: Vitals signs as noted above General Appearance:Morbidly Obese, no apparent distress Head: normocephalic, Atraumatic Eyes: normal inspection, EOMI Neck: supple, Trachea midline Respiratory/Chest: Decreased breath sounds, CTA Cardiovascular: S1, S2, + mechanical click, murmur Abdomen/GI:Soft, Non tender, Bowel sounds present Extremities/Musculoskeletal:normal inspection, B/L LE edema Neurologic/Psych:AAOX3, grossly no focal neurological deficits Skin: normal color, warm, + midline well-healed surgical scar Results & Data Results & Data [facility]) Vital Signs (Past 12 Hours) Vital Signs Temp Pulse Pulse Resp BP BP Pulse Ox 04/24/21 07:32 53 L 04/24/21 07:19 36.4 C L 72 16 104/65 95 04/24/21 05:12 36.5 C 74 18 113/68 95 04/24/21 00:00 70 04/23/21 23:17 36.7 C 74 20 108/66 96 Laboratory Results [facility] 04/24/21 05:51 Sodium 137 Potassium 4.5 Chloride 107 Carbon Dioxide 29 BUN 19 H Creatinine 0.78 Glucose 86 Calcium 8.7
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
[2021-04-24 11:00] VITALS: PULSE 72
== END 2021-04-24 11:49 | disposition home or self-care (01) | DRG 291 ==
LOC: ED 15:32 → 2W 15:32 → SUATTDRO 21:42 → 2W 23:05

== ENCOUNTER 2021-09-18 17:52 | Observation (INO) ==
[2021-09-18] MEDS ORDERED: ONDANSETRON INJ 2 MG/ML 2 ML VIAL IV STA (18:11)
--- NOTE | 2021-09-18 18:14 | Emergency Department Note ---
History of Present Illness General Chief complaint: Illness Stated complaint: Illness Time Seen by Provider: 09/18/21 17:56 Source: patient History of Present Illness Provider complaint: Chest pain Onset (ago): day(s) Location: chest Radiation: non-radiation Pain Consistency: + intermittent and + now resolved Maximum Pain Intensity: 6 Quality: + other (Pressure) Relieved By: + none Associated symptoms: + malaise, + nausea/vomiting and + weakness; no cough, no fever/chills or no shortness of breath This is a 35-year-old male who presents with chest pain intermittently throughout the day. He rates it a 6 out of 10 in severity. It is now resolved. He describes it as a pressure in the middle of his chest without radiation. No associated shortness of breath. No modifying factors. The patient states that he has been feeling unwell for the past 2 days. He stated that he has felt extremely weak throughout the day since yesterday morning. He is unable to get out of bed. He has diffuse body aches. He denies any cough or cold symptoms or fever. He has had dry heaves but denies any diarrhea. He has had no black or bloody stools or urinary symptoms. He denies any leg swelling or pain. He has had no abdominal pain. He is not vaccinated for COVID-19. Home Medications Medication Instructions Recorded Confirmed Type amlodipine 5 mg tablet 5 mg PO BID 11/12/18 09/18/21 History clopidogrel 75 mg tablet 75 mg PO QAM 11/12/18 09/18/21 History duloxetine 60 mg capsule,delayed 60 mg PO QAM 11/12/18 09/18/21 History release losartan 100 mg tablet 100 mg PO QAM 11/12/18 09/18/21 History warfarin 5 mg tablet 5 mg PO UD 12/06/19 09/18/21 History duloxetine 30 mg capsule,delayed 30 mg PO QAM 03/11/21 09/18/21 History release metoprolol succinate 100 mg 100 mg PO QAM 03/11/21 09/18/21 History tablet,extended release 24 hr acetaminophen 500 mg tablet 1,000 mg PO Q6H PRN 04/08/21 09/18/21 History (Tylenol Extra Strength) potassium chloride 10 mEq 20 meq PO QAM 04/08/21 09/18/21 History tablet,extended release multivitamin 1 tab PO DAILY 04/20/21 09/18/21 History spironolactone 25 mg tablet 25 mg PO QAM #30 tab 04/24/21 09/18/21 Rx torsemide 10 mg tablet 10 mg PO QAM #30 tab 04/24/21 09/18/21 Rx omega 3-rzn-xgu-fish oil 900 1 cap PO QAM 09/18/21 09/18/21 History mg-1,400 mg capsule,delayed release Allergies Allergy/AdvReac Type Severity Reaction Status Date / Time No Known Allergies Allergy Verified 09/18/21 18:34 Past Med/Surg History Medical History (Updated 09/18/21 @ 21:55 by Lloyd Meraz MD) Amaurosis fugax of right eye Anticoagulated on Coumadin Anxiety Aortic dissection Per Clarence Hernandez PA-C progress note from 04/08/18 " Type 1 aortic dissection, 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 3.Status post emergent aortic valve and root replacement with [employer] Brant's mecha nical valve and conduit size 27 along with coronary reimplantation. 4.Post discharge course complicated by cardiac tamponade requiring left thoracotomy, pericardial window on 07/29/14. 5.Patient status post 05/29/2015 redo sternotomy, left carotid subclavian bypass, right axillary cannulation with an 8 mm graft, arch replacement with a 30 mm branched Dacron graft, ligation of left subclavian artery, arch debranching with individual anastomoses to the right subclavian, right carotid, and left carotid arteries." Chronic systolic (congestive) heart failure Congenital bicuspid aortic valve DDD (degenerative disc disease), lumbar HLD (hyperlipidemia) HTN (hypertension) Surgical History H/O exploratory laparotomy H/O mechanical aortic valve replacement s/p St. Judes mech valve and conduit size 27 along with coronary reimplantation 07/2014 History of ERCP S/P AAA repair "07/15/2014 REPAIR AORTA WITH CARDIOPULMONARY BYPASS performed by Timbo Heredia MD at [facility] Persistent aortic dissection with resultant repeat surgery on 05/27/2015 for arch repair." S/P cholecystectomy S/P ERCP (06/08/14) Family History Mother Alive and well Father Alive and well Grandfather (Maternal) Coronary heart disease T2DM (type 2 diabetes mellitus) Grandmother (Maternal) T2DM (type 2 diabetes mellitus) Coronary heart disease Other No family history of kidney disease Social History Smoking Status: Never smoker Years Smoked: 12; Cigarettes Per Day: 1; Second Hand Exposure: No; Hx Alcohol Use: Yes Alcohol type: beer Hx Substance Use: No Preferred Language: Mauritian Communication Ability: Effective Cardiologist Required: No Beliefs That Will Affect Care: None Current Living Situation: Family Current Living Situation Comment: Lives with Dad Feels Safe at Home: Yes Assistive Devices: None Review of Systems See HPI for pertinent positives & negatives. and A total of 10 systems reviewed and were otherwise negative Physical Exam Vital Signs Vital Signs - 24 hr 09/18/21 18:00 09/18/21 18:38 09/18/21 21:50 Temperature 36.6 C Temperature Source Oral Pulse Rate 86 Pulse Rate [Right Finger] 77 Respiratory Rate 22 16 Blood Pressure 153/77 H Blood Pressure [Right Arm] 163/81 H Blood Pressure Mean 102 Blood Pressure Mean [Right Arm] 108 Blood Pressure Position [Right Arm] Lying Pulse Oximetry 97 97 98 Oxygen Delivery Method Room Air Room Air Room Air Sepsis Recent Fever Within 48 Hours No Sepsis New/Unexplained Change in Mental Status N/A Sepsis Action Taken by Nursing No Action Required Constitutional: Vital signs reviewed. Eyes: Pupils are equal round reactive to light. Conjunctiva are noninjected. ENT: Pharynx is clear without erythema or exudate. Mucous membranes are moist. Neck supple without meningeal signs. Respiratory: Clear to auscultation bilaterally. Breath sounds are equal bilaterally. Cardiovascular: Regular rate and rhythm. Audible mechanical valve. GI: Soft, nondistended and nontender. Bowel sounds are present. Musculoskeletal: No peripheral edema. No lower extremity tenderness. Integumentary: No cyanosis. or jaundice. Neurological: The patient is awake and alert. No focal deficits. Psychiatric: Normal affect. Course Administered Medications Discontinued Medications Acetaminophen (Acetaminophen 500 Mg Tab) 1,000 mg PO NOW STA Stop: 09/18/21 19:42 Last Admin: 09/18/21 19:49 Dose: 1,000 mg Documented by: [id number] Ondansetron HCl (Ondansetron Inj 2 Mg/Ml 2 Ml Vial) 4 mg IV NOW STA Stop: 09/18/21 18:12 Last Admin: 09/18/21 18:38 Dose: 4 mg Documented by: [id number] Oxycodone HCl (Oxycodone Hcl Ir 5 Mg Tab (Immediate Release)) 5 mg PO NOW STA Stop: 09/18/21 21:37 Last Admin: 09/18/21 21:50 Dose: 5 mg Documented by: [id number] Medical Decision Making Differential Diagnosis Unstable angina, OR, influenza, COVID-19, anemia, CHF exacerbation Medical Records Attestation: I reviewed the patient's medical records. I did perform a limited focused review of portions of the patient's old chart on the electronic medical record. The patient was seen here in July for chest pain and discharged home after evaluation. Home Medications Current Medication List: was personally reviewed by me Laboratory Data Attestation: I reviewed the patient's lab results. Result diagrams: 09/18/21 18:35 09/18/21 18:35 Lab Results 09/18/21 09/18/21 09/18/21 Range/Units 18:35 18:35 18:35 WBC 6.03 (4.8-10.8) K/uL RBC 4.57 L (4.7-6.1) M/uL Hgb 13.5 L (14.0-18.0) g/dL Hct 40.4 L (42-52) % MCV 88.4 (80-100) fL MCH 29.5 (25-34) pg MCHC 33.4 (32-36) g/dL RDW Std Deviation 43.0 (36.4-46.3) fL RDW Coeff of Levon 13.3 (11.5-14.5) % Plt Count 236 (130-400) K/uL MPV 9.9 (7.4-10.4) fL Immature Gran % (Auto) 0.3 % Neut % (Auto) 77.3 % Lymph % (Auto) 15.9 % [place] % (Auto) 6.1 % Eos % (Auto) 0.2 % Baso % (Auto) 0.2 % Neut # (Auto) 4.66 (1.4-6.5) K/uL Lymph # (Auto) 0.96 L (1.2-3.4) K/uL [place] # (Auto) 0.37 (0.11-0.59) K/uL Eos # (Auto) 0.01 (0-0.5) K/uL Baso # (Auto) 0.01 (0-0.2) K/uL Immature Gran # (Auto) 0.02 (0.00-0.02) K/uL PT 19.4 H (9.0-12.0) Seconds INR 2.0 H (0.9-1.1) APTT 35.9 H (21.0-31.0) Seconds PTT Ratio 1.4 Sodium 138 (136-145) mmol/L Potassium 4.2 (3.5-5.1) mmol/L Chloride 106 (98-107) mmol/L Carbon Dioxide 24 (21-32) mmol/L Anion Gap 8.0 (3-11) BUN 10 (7-18) mg/dl Creatinine 0.83 (0.6-1.4) mg/dl Est Cr Clr Drug Dosing Not Reportable Est GFR ( Amer) 133.1 ml/min Est GFR (Non-Af Amer) 114.8 ml/min BUN/Creatinine Ratio 11.6 (10-20) Glucose 103 H (70-99) mg/dl Calcium 8.9 (8.5-10.1) mg/dl Total Bilirubin 1.1 H (0.2-1) mg/dl AST 29 (15-37) U/L ALT 34 (12-78) U/L Alkaline Phosphatase 55 (45-117) U/L Troponin I < 0.015 (0-0.045) ng/ml NT-Pro-B Natriuret Pep 414 (0-450) pg/ml Total Protein 7.9 (6.4-8.2) gm/dl Albumin 3.4 (3.4-5.0) gm/dl Globulin 4.5 H (2.5-4.0) gm/dl Albumin/Globulin Ratio 0.8 L (0.9-2) Lipase 62 L (73-393) U/L Specimen Hemolysis COVID-19 Eval Order SARS-CoV-2 (PCR) (Negative) Influ A Molecular Assay (Negative) Influ B Molecular Assay (Negative) 09/18/21 09/18/21 09/18/21 Range/Units 18:35 18:35 18:35 WBC (4.8-10.8) K/uL RBC (4.7-6.1) M/uL Hgb (14.0-18.0) g/dL Hct (42-52) % MCV (80-100) fL MCH (25-34) pg MCHC (32-36) g/dL RDW Std Deviation (36.4-46.3) fL RDW Coeff of Levon (11.5-14.5) % Plt Count (130-400) K/uL MPV (7.4-10.4) fL Immature Gran % (Auto) % Neut % (Auto) % Lymph % (Auto) % [place] % (Auto) % Eos % (Auto) % Baso % (Auto) % Neut # (Auto) (1.4-6.5) K/uL Lymph # (Auto) (1.2-3.4) K/uL [place] # (Auto) (0.11-0.59) K/uL Eos # (Auto) (0-0.5) K/uL Baso # (Auto) (0-0.2) K/uL Immature Gran # (Auto) (0.00-0.02) K/uL PT (9.0-12.0) Seconds INR (0.9-1.1) APTT (21.0-31.0) Seconds PTT Ratio Sodium (136-145) mmol/L Potassium (3.5-5.1) mmol/L Chloride (98-107) mmol/L Carbon Dioxide (21-32) mmol/L Anion Gap (3-11) BUN (7-18) mg/dl Creatinine (0.6-1.4) mg/dl Est Cr Clr Drug Dosing Est GFR ( Amer) ml/min Est GFR (Non-Af Amer) ml/min BUN/Creatinine Ratio (10-20) Glucose (70-99) mg/dl Calcium (8.5-10.1) mg/dl Total Bilirubin (0.2-1) mg/dl AST (15-37) U/L ALT (12-78) U/L Alkaline Phosphatase (45-117) U/L Troponin I (0-0.045) ng/ml NT-Pro-B Natriuret Pep (0-450) pg/ml Total Protein (6.4-8.2) gm/dl Albumin (3.4-5.0) gm/dl Globulin (2.5-4.0) gm/dl Albumin/Globulin Ratio (0.9-2) Lipase (73-393) U/L Specimen Hemolysis COVID-19 Eval Order Covid19 at [facility] SARS-CoV-2 (PCR) NEGATIVE (Negative) Influ A Molecular Assay Negative (Negative) Influ B Molecular Assay Negative (Negative) Imaging Data Radiologist's Impression: Chest X-Ray 09/18/21 18:12 XR chest 1V portable HISTORY: Atypical Chest Pain COMPARISON: Chest 07/12/2021. FINDINGS: The heart remains mildly enlarged. There is a cardiac valve prosthesis and poststernotomy changes again noted. The lungs are clear. No pleural effusions. No pneumothorax. IMPRESSION: No significant change compared to the prior study. No acute process. ACT 112: Negative or not required by law. Electronically signed by: Bert Schaffer M.D. 09/18/2021 7:19 PM ECG Data Attestation: I personally reviewed and interpreted this ECG as follows: Indication: + chest pain Rate (beats per minute): 73 Rhythm: + normal sinus ECG Intervals/blocks: + Left bundle branch block ECG Findings: no PACs or no PVCs Comparison ECG Date: from (July 12, 2021) Change: no significant change MDM Narrative I did evaluate the patient as noted above. The patient is presenting with gener alized weakness with flulike symptoms and myalgias. He also had chest pain all day today. IV access was established. I did place an order for continuous cardiac monitoring. The monitor showed normal sinus rhythm at a rate of 76 bpm. I did order and personally review the patient's 12-lead EKG as described above. He has an old left bundle branch block. There is no signs of acute ischemia. I did order and personally reviewed the images of the patient's chest x-ray as described above. He has no evidence of pulmonary edema or pneumonia. I did order and review the patient's blood work as noted in the electronic medical record. CBC demonstrates a hemoglobin 13.5. Platelet count and white blood cell count are within normal limits. INR is 2. Electrolytes are unremarkable. Troponin is negative. Testing for Covid as well as influenza are both negative. I did treat patient with Tylenol. I did discuss the test results with the patient. He will be hospitalized for repeat cardiac biomarkers and further evaluation. I did discuss case with the hospitalist and correctional counselor/case manager. Impression & Plan Acute chest pain, Flu-like symptoms, Generalized weakness Discharge Plan Visit Data Chief Complaint: Illness Stated Complaint: Illness ED Provider: Lloyd Meraz Discharge Problem: Acute chest pain, Flu-like symptoms, Generalized weakness Patient Disposition: Being Evaluated by Hospitalist Forms Stand Alone Forms: My [facility] Prescriptions Prescriptions: No Action warfarin 5 mg tablet 5 mg PO UD RF: 0 clopidogrel 75 mg tablet 75 mg PO QAM RF: 0 amlodipine 5 mg tablet 5 mg PO BID RF: 0 losartan 100 mg tablet 100 mg PO QAM RF: 0 duloxetine 60 mg capsule,delayed release(DR/EC) 60 mg PO QAM RF: 0 acetaminophen [Tylenol Extra Strength] 500 mg Tablet 1,000 mg PO Q6H PRN (Reason: Pain) RF: 0 potassium chloride 10 mEq tablet extended release 20 meq PO QAM RF: 0 metoprolol succinate 100 mg tablet extended release 24 hr 100 mg PO QAM RF: 0 duloxetine 30 mg capsule,delayed release(DR/EC) 30 mg PO QAM RF: 0 multivitamin Tablet 1 tab PO DAILY RF: 0 torsemide 10 mg Tablet 10 mg PO QAM Qty: 30 RF: 1 spironolactone 25 mg Tablet 25 mg PO QAM Qty: 30 RF: 1 [place] 3 Fish Oil 900-1,400 mg Capsule,Delayed Release(Dr/Ec) 1 cap PO QAM RF: 0 Referrals Referrals: Biran Guido MD [Primary Care Provider] -
[2021-09-18 18:49] LABS: Basophils # (auto) 0.01 K/uL (0-0.2); Basophils % (auto) 0.2 %; Eosinophils # (auto) 0.01 K/uL (0-0.5); Eosinophils % (auto) 0.2 %; Hematocrit (blood only) 40.4 % (42-52); Hemoglobin 13.5 g/dL (14.0-18.0); Immature Granulocytes # (auto) 0.02 K/uL (0.00-0.02); Immature Granulocytes % (auto) 0.3 %; Lymphocytes # (auto) 0.96 K/uL (1.2-3.4); Lymphocytes % (auto) 15.9 %; Mean Corpuscular Hemoglobin 29.5 pg (25-34); Mean Corpuscular Hgb Conc 33.4 g/dL (32-36); Mean Corpuscular Volume 88.4 fL (80-100); Mean Platelet Volume 9.9 fL (7.4-10.4); Monocytes # (auto) 0.37 K/uL (0.11-0.59); Monocytes % (auto) 6.1 %; Neutrophils # (auto) 4.66 K/uL (1.4-6.5); Neutrophils % (auto) 77.3 %; Platelet Count 236 K/uL (130-400); RDW Coefficient of Variation 13.3 % (11.5-14.5); Red Blood Count 4.57 M/uL (4.7-6.1); White Blood Count 6.03 K/uL (4.8-10.8)
[2021-09-18 18:59] LABS: Partial Thromboplastin Ratio 1.4; Partial Thromboplastin Time 35.9 Seconds (21.0-31.0); Prothrombin Time 19.4 Seconds (9.0-12.0)
[2021-09-18 19:08] LABS: Influenza A virus by PCR Negative (Negative); Influenza B virus by PCR Negative (Negative)
[2021-09-18 19:10] LABS: Alanine Aminotransferase 34 U/L (12-78); Albumin Level 3.4 gm/dl (3.4-5.0); Aspartate Aminotransferase 29 U/L (15-37); BUN Creatinine Ratio 11.6 (10-20); Blood Urea Nitrogen 10 mg/dl (7-18); Calcium 8.9 mg/dl (8.5-10.1); Carbon Dioxide 24 mmol/L (21-32); Chloride 106 mmol/L (98-107); Est GFR (African American) 133.1 ml/min; Est GFR (Non-African American) 114.8 ml/min; Glucose 103 mg/dl (70-99); Lipase 62 U/L (73-393); Potassium 4.2 mmol/L (3.5-5.1); Sodium 138 mmol/L (136-145)
[2021-09-18 19:15] LABS: Albumin Globulin Ratio 0.8 (0.9-2); Alkaline Phosphatase 55 U/L (45-117); Bilirubin,Total 1.1 mg/dl (0.2-1); Globulin 4.5 gm/dl (2.5-4.0); NT Pro B Type Natriuretic Pept 414 pg/ml (0-450); Total Protein 7.9 gm/dl (6.4-8.2); Troponin I < 0.015 ng/ml (0-0.045)
--- NOTE | 2021-09-18 19:20 | XRay Report ---
XR chest 1V portable HISTORY: Atypical Chest Pain COMPARISON: Chest 07/12/2021. FINDINGS: The heart remains mildly enlarged. There is a cardiac valve prosthesis and poststernotomy c hanges again noted. The lungs are clear. No pleural effusions. No pneumothorax. IMPRESSION: No significant change compared to the prior study. No acute process. ACT 112: Negative or not required by law. Electronically signed by: Bert Schaffer M.D. 09/18/2021 7:19 PM
[2021-09-18] MEDS ORDERED: ACETAMINOPHEN 500 MG TAB PO STA (19:41)
[2021-09-18] MEDS ORDERED: oxyCODONE HCL IR 5 MG TAB (IMMEDIATE RELEASE) PO STA (21:36)
--- NOTE | 2021-09-18 22:58 | History and Physical Report ---
DATE OF ADMISSION: 09/18/2021. CHIEF COMPLAINT: Not feeling well. HISTORY OF PRESENT ILLNESS: This is a 35-year-old male with past medical history significant for chronic diastolic heart failure with EF of 55-60%, congenital bicuspid aortic valve, ascending aortic dissection, status post surgery, mechanical aortic valve on Coumadin, chronic left bundle-branch block, hypertension, hyperlipidemia, chronic anemia, baseline hemoglobin 12-13, intermittent tobacco abuse, presents with complaining of chest pain, headache, some nausea, feeling of weakness. Hemodynamically stable. Labs looks okay. complains of headache. Says he was nauseous and dry heaving today. Denies any cough, no fever, no blurred visions, no runny nose, no sore throat. Appetite is not that great for the last couple of days. Chest pain is in the middle of the chest, 5/10 severity, no radiation. It comes and goes on its own. No shortness of breath, no belly pain, normal bowel and bladder movements. Currently, hemodynamically stable. ALLERGIES: No known drug allergies. PAST MEDICAL HISTORY: As mentioned above. PAST SURGICAL HISTORY: Repair of aorta, appendectomy, ascending aortic graft, EGD with endoscopic ultrasound, ERCP with stent placement, exploration of abdomen, placement of pericardial window, laparoscopic cholecystectomy, repair of incisional hernia, aortic valve replacement. MEDICATIONS: The patient is on Tylenol Extra Strength 1000 mg p.o. q. 6 hours p.r.n., amlodipine 5 mg p.o. b.i.d., Plavix 75 mg p.o. a.m., duloxetine 90 mg p.o. a.m., losartan 100 mg p.o. a.m., metoprolol succinate 100 mg p.o. a.m., multivitamin 1 tablet p.o. daily, S [place] fish oil 1 capsule p.o. a.m., potassium chloride 20 mEq p.o. a.m., spironolactone 25 mg p.o. a.m., torsemide 10 mg p.o. a.m., warfarin 5 mg p.o. as directed. FAMILY HISTORY: Significant for maternal grandfather has diabetes and heart disorder; maternal grandmother has diabetes and heart disorder. SOCIAL HISTORY: Lives with father. Quit smoking in 2014, smoked 1 pack a day for 12 years ago. Alcohol, socially. No drug use. REVIEW OF SYSTEMS: As per HPI. Rest of the review of systems negative. PHYSICAL EXAMINATION: GENERAL: The patient is morbidly obese, not in acute distress. VITAL SIGNS: Temperature 36.6, pulse 86, respiratory rate 22, blood pressure 153/77, oxygen 97% on room air. HEENT: Pupils equal, round and reactive to light. Oral mucosa moist. NECK: No JVD, no neck masses. CARDIOVASCULAR: S1 and S2 heard. Regular rate and rhythm. No murmur, no gallop. RESPIRATORY SYSTEM: Normal AP diameter. No accessory muscle use. No wheezing, no crackles. ABDOMEN: Soft, bowel sounds present, nontender, no distention. CENTRAL NERVOUS SYSTEM: Cranial nerves II-XII grossly intact, nonfocal. EXTREMITIES: Trace pedal edema, no erythema seen. LABORATORY DATA: WBC 6, hemoglobin 13.5, hematocrit 40.4, platelets 236. PT 19.4, INR 2, APTT 35.9. Sodium 138, potassium 4.2, chloride 106, bicarbonate 24, BUN 10, creatinine 0.8, serum glucose 103, calcium 8.9, total bilirubin 1.1, AST 29, ALT 34, alkaline phosphatase 55. Troponin I less than 0.015. BNP 414. Lipase 62. SARS-CoV-2 PCR negative. Influenza A and B negative. IMAGING DATA: Chest x-ray, no acute process. EKG: Normal sinus rhythm at a rate of 73, left bundle-branch block, no significant change was found. ASSESSMENT AND PLAN: This 35-year-old male presents with ongoing illness with a headache, nausea, dry heaves and chest pain and feeling weak. 1. Chest pain. Initial workup is negative, but because of a history, we will do serial enzymes, echo and monitor in the [place], n.p.o. and consult Cardiology in the a.m. 2. History of chronic diastolic congestive heart failure. Continue his home diuretics, Toprol-XL and losartan. We will monitor for any volume overload. 3. History of chronic nonocclusive deep venous thrombosis, on Coumadin. INR therapeutic. We will follow PT/INR. 4. Hypertension: Continue amlodipine, losartan, metoprolol. We will monitor. 5. History of congenital bicuspid aortic valve, history of ascending aortic dissection, status post surgery, chronic left bundle-branch block, aortic valve replacement on Coumadin, metoprolol and Plavix. 6. Tobacco use intermittently. 7. Weakness, headache and nausea. any viral illness?. Will continue to monitor. 8. Deep venous thrombosis prophylaxis: On Coumadin. CODE STATUS: Level 1 full code. DISPOSITION: Admit to [facility] tele. PT/OT prior to discharge. Social service to help with discharge planning. Job ID: [id number] MTDD
[2021-09-18] MEDS ORDERED: ONDANSETRON INJ 2 MG/ML 2 ML VIAL IV PRN (23:59)
[2021-09-18] MEDS ORDERED: POLYETHYLENE (MIRALAX) 17 GM PACK PO PRN (23:59)
[2021-09-18] MEDS ORDERED: NITROGLYCERIN SL 0.4 MG/TAB TAB SL PRN (23:59)
[2021-09-19] MEDS ORDERED: KETOROLAC 30 MG/ML VIAL IV ONE (00:30)
[2021-09-19] MEDS ORDERED: KETOROLAC 30 MG/ML VIAL ONE (00:31)
[2021-09-19] MEDS: ACETAMINOPHEN 325 MG TAB PO PRN ×2 (05:17→12:59)
[2021-09-19 06:22] LABS: Basophils # (auto) 0.01 K/uL (0-0.2); Basophils % (auto) 0.2 %; Eosinophils # (auto) 0.04 K/uL (0-0.5); Eosinophils % (auto) 0.8 %; Hematocrit (blood only) 39.2 % (42-52); Hemoglobin 13.3 g/dL (14.0-18.0); Lymphocytes # (auto) 1.38 K/uL (1.2-3.4); Lymphocytes % (auto) 27.8 %; Mean Corpuscular Hgb Conc 33.9 g/dL (32-36); Mean Corpuscular Volume 88.5 fL (80-100); Mean Platelet Volume 9.8 fL (7.4-10.4); Monocytes # (auto) 0.48 K/uL (0.11-0.59); Monocytes % (auto) 9.7 %; Neutrophils # (auto) 3.06 K/uL (1.4-6.5); Neutrophils % (auto) 61.5 %; Platelet Count 226 K/uL (130-400); RDW Coefficient of Variation 13.3 % (11.5-14.5); RDW Standard Deviation 43.3 fL (36.4-46.3); Red Blood Count 4.43 M/uL (4.7-6.1); White Blood Count 4.97 K/uL (4.8-10.8)
[2021-09-19 06:27] LABS: Prothrombin Time 19.3 Seconds (9.0-12.0)
[2021-09-19 06:57] LABS: BUN Creatinine Ratio 14.5 (10-20); Blood Urea Nitrogen 13 mg/dl (7-18); Calcium 8.9 mg/dl (8.5-10.1); Carbon Dioxide 27 mmol/L (21-32); Chloride 107 mmol/L (98-107); Creatinine Clr Calc Pharmacy 191.5 ml/min; Est GFR (African American) 129.9 ml/min; Est GFR (Non-African American) 112.1 ml/min; Glucose 98 mg/dl (70-99); Magnesium 2.4 mg/dl (1.8-2.4); Potassium 4.3 mmol/L (3.5-5.1); Sodium 139 mmol/L (136-145)
[2021-09-19 07:02] LABS: Troponin I < 0.015 ng/ml (0-0.045)
[2021-09-19] MEDS: KETOROLAC TROMETHAMINE 15 MG/ML VIAL IV PRN ×3 (08:23→20:30)
[2021-09-19] MEDS: POTASSIUM CHLORIDE CRTAB 20 MEQ TABCR PO SCH (08:26)
[2021-09-19] MEDS: DULoxetine HCL 30 MG CAP PO SCH (08:27)
[2021-09-19] MEDS: CLOPIDOGREL BISULFATE 75 MG TAB PO SCH (08:27)
[2021-09-19] MEDS: amLODIPine BESYLATE 5 MG TAB PO SCH ×2 (08:27→20:18)
[2021-09-19] MEDS: DULoxetine HCL 60 MG CAP PO SCH (08:27)
[2021-09-19] MEDS: LOSARTAN POTASSIUM 50 MG TAB PO SCH (08:28)
[2021-09-19] MEDS: TORSEMIDE 10 MG TAB PO SCH (08:28)
[2021-09-19] MEDS: METOPROLOL SUCC 50MG EXT REL TAB PO SCH (08:28)
[2021-09-19] MEDS: SPIRONOLACTONE 25 MG TAB PO SCH (08:28)
[2021-09-19] MEDS: MULTIVITAMIN TAB PO SCH (08:29)
--- NOTE | 2021-09-19 08:43 | Cardiology Consultation ---
Date of Consultation September 19, 2021 Assessment & Plan (1) Gastroenteritis: (2) Chronic heart failure with preserved ejection fraction: (3) LBBB (left bundle branch block): (4) Atypical chest pain: (5) HTN (hypertension): (6) History of aortic dissection: (7) H/O mechanical aortic valve replacement: Complex 35 year old male admitted for likely gastroenteritis with 2-3 days of nausea/vomiting/dry heaving/diarrhea/lack of appetite -Symptoms slowly improving -advance diet as tolerated today Atypical chest pain reported, unchanged from his prior complaints of chronic atypical pain -Negative troponin -Echo with stable findings, preserved LV systolic function, stable valvular measurements, stable aortic measurements -EKG with chronic LBBB, unchanged -Chest pain resolved Hypertension -BP improved at home with addition of terazosin 2 mg as outpatient. Does not appear this was ordered on admission. Will resume. BP has been controlled during admission. -continue all other cardiac medications Case discussed with Dr. Dupont. Supportive care recommended for underlying GI illness. No further cardiac testing warranted at this time. Supervising Physician Co-Signing Physician Notes Patient was seen and examined personally, chart, medications, telemetry reviewed. Assessment and plan as outlined above. Patient presented with acute noncardiac symptoms now improved this morning. No signs or symptoms of an occult cardiac decline echocardiogram unchanged. Would continue outpatient cardiac medications as noted above History of Present Illness Reason for Consultation: Chest pain; weakness; complex cardiac history Requesting Physician: Dr. Simon Attending Physician: Dr. Dupont History of Present Illness Patient is a complex 35 year old male, well known to [facility], primary whizzer Dr. Dupont, and also following with Jose Angel Hernandez PA-C. History includes: 1. Congenitally bicuspid aortic valve. 2. Type 1 aortic dissection, 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 3. Status post emergent aortic valve and root replacement with [employer] Brant's mechanical valve and conduit size 27 along with coronary reimplantation. 4. Post discharge course complicated by cardiac tamponade requiring left thoracotomy, pericardial window on 07/29/14. 5. Patient status post 05/29/2015 redo sternotomy, left carotid subclavian bypass, right axillary cannulation with an 8 mm graft, arch replacement with a 30 mm branched Dacron graft, ligation of left subclavian artery, arch debranching with individual anastomoses to the right subclavian, right carotid, and left carotid arteries. 6. Hypertension 7. Dyslipidemia 8. Left bundle branch block 9. Heart failure with preserved LV systolic function 10 Chronic chest pain Patient presented to ER yesterday after 2 days of GI upset, weakness, nausea/dry heaving, diarrhea and lack of appetite. Symptoms began Friday evening. Friday he reports laying in bed all day due to weakness and dizziness. No syncope. Due to persistent symptoms on Friday, his sister brought him to ER for evaluation. He reports no food and limited hydration since Friday. Upon arrival to ER, He reported intermittent chest pain as well to hospitalist and cardiology consult was requested. EKG demonstrated NSR with chronic LBBB, unchanged. Cardiac enzymes were unremarkable since admission. chest xray was without acute process. Other labs unremarkable. Echo was completed which demonstrated stable findings since admission. At time of consult, patient resting in bed comfortably. When questioned further about his episodes of chest pain, he reports/admits that the chest pain he had over the last several days with nausea/dry heaving were consistent with his chronic episodes of chest pain, but possibly more intense. Now fully resolved. His dizziness has also resolved. Currently he reports mild persistent nausea but no recurrent vomiting or diarrhea. He is NPO pending cardiac consult. He wishes to try and eat something this morning. Last month he contacted our cardiology office with concerns regarding elevated BP readings and headaches. Terazosin 2 mg was added every night. He reports great improvement in his BP readings since that time and headaches mostly resolved. Does not appear this was continued on admission. His BP is controlled. Allergies Allergy/AdvReac Type Severity Reaction Status Date / Time No Known Allergies Allergy Verified 09/18/21 18:34 Home Medications Medication Instructions Recorded Confirmed Type amlodipine 5 mg tablet 5 mg PO BID 11/12/18 09/18/21 History clopidogrel 75 mg tablet 75 mg PO QAM 11/12/18 09/18/21 History duloxetine 60 mg capsule,delayed 60 mg PO QAM 11/12/18 09/18/21 History release losartan 100 mg tablet 100 mg PO QAM 11/12/18 09/18/21 History warfarin 5 mg tablet 5 mg PO UD 12/06/19 09/18/21 History duloxetine 30 mg capsule,delayed 30 mg PO QAM 03/11/21 09/18/21 History release metoprolol succinate 100 mg 100 mg PO QAM 03/11/21 09/18/21 History tablet,extended release 24 hr acetaminophen 500 mg tablet 1,000 mg PO Q6H PRN 04/08/21 09/18/21 History (Tylenol Extra Strength) potassium chloride 10 mEq 20 meq PO QAM 04/08/21 09/18/21 History tablet,extended release multivitamin 1 tab PO DAILY 04/20/21 09/18/21 History spironolactone 25 mg tablet 25 mg PO QAM #30 tab 04/24/21 09/18/21 Rx torsemide 10 mg tablet 10 mg PO QAM #30 tab 04/24/21 09/18/21 Rx omega 4-[id number]-fish oil 900 1 cap PO QAM 09/18/21 09/18/21 History mg-1,400 mg capsule,delayed release Patient History Medical History (Updated 09/19/21 @ 10:26 by Adelaide Brian PA-C) Amaurosis fugax of right eye Anticoagulated on Coumadin Anxiety Aortic dissection Per Clarence Hernandez PA-C progress note from 04/08/18 " Type 1 aortic dissection, 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 3.Status post emergent aortic valve and root replacement with [employer] Brant's mechanical valve and conduit size 27 along with coronary reimplantation. 4.Post discharge course complicated by cardiac tamponade requiring left thoracotomy, pericardial window on 07/29/14. 5.Patient status post 05/29/2015 redo sternotomy, left carotid subclavian bypass, right axillary cannulation with an 8 mm graft, arch replacement with a 30 mm branched Dacron graft, ligation of left subclavian artery, arch debranching with individual anastomoses to the right subclavian, right carotid, and left carotid arteries." Chronic systolic (congestive) heart failure Congenital bicuspid aortic valve DDD (degenerative disc disease), lumbar HLD (hyperlipidemia) HTN (hypertension) Surgical History (Updated 09/19/21 @ 10:26 by Adelaide Brian PA-C) H/O exploratory laparotomy H/O mechanical aortic valve replacement s/[facility] size 27 along with coronary reimplantation 07/2014 History of ERCP S/P AAA repair "07/15/2014 REPAIR AORTA WITH CARDIOPULMONARY BYPASS performed by Timbo Heredia MD at [facility] Persistent aortic dissection with resultant repeat surgery on 05/27/2015 for arch repair." S/P cholecystectomy S/P ERCP (06/08/14) Family History Mother Alive and well Father Alive and well Grandfather (Maternal) Coronary heart disease T2DM (type 2 diabetes mellitus) Grandmother (Maternal) T2DM (type 2 diabetes mellitus) Coronary heart disease Other No family history of kidney disease Social History Smoking Status: Never smoker Years Smoked: 12; Cigarettes Per Day: 1; Second Hand Exposure: No; Hx Alcohol Use: No Hx Substance Use: No Preferred Language: Citizen Of [place] Communication Ability: Effective Director Of Home Economics Required: No Beliefs That Will Affect Care: None Current Living Situation: Family Current Living Situation Comment: Lives with Dad Other Information That Helps Us Care for You: No Feels Safe at Home: Yes Safety Concerns: Feels Safe At This Time Assistive Devices: None Review of Systems Review of Systems: All systems reviewed & are unremarkable except as noted in HPI & below Physical Exam Constitutional: WD/WN, vitals as above well nourished and + obese; no acute distress Eyes: PERRL, conjunctivae normal, anicteric sclerae Neck: + thick neck Respiratory: normal respiratory effort, lungs clear to auscultation Cardiovascular: Rate/Rhythm: regular rate and regular rhythm Heart Sounds: + click (crisp mechanical heart sounds) and + murmur Vessels: no JVD Extremities: no edema Gastrointestinal (Abdomen): normal bowel sounds, soft, nontender, no hepatosplenomegaly Musculoskeletal: no cyanosis or clubbing, extremities motor strength 5/5 Skin: no rashes, warm and dry Neurologic: PERRL, EOMI, accommodation nl, no face palsy, no dysarthria Psychiatric: A+Ox3, euthymic affect Results & Data ([facility]) Vital Signs (Past 12 Hours) Vital Signs Temp Pulse Pulse Resp BP Pulse Ox 09/19/21 07:40 36.8 C 66 18 145/79 H 95 09/19/21 07:12 66 09/19/21 04:00 36.7 C 76 18 107/65 96 09/19/21 00:13 36.3 C L 76 130/81 98 09/18/21 21:50 77 16 163/81 H 98 Laboratory Results 09/19/21 09/19/21 09/19/21 Range/Units 05:54 05:54 05:54 WBC 4.97 (4.8-10.8) K/uL RBC 4.43 L (4.7-6.1) M/uL Hgb 13.3 L (14.0-18.0) g/dL Hct 39.2 L (42-52) % MCV 88.5 (80-100) fL MCH 30.0 (25-34) pg MCHC 33.9 (32-36) g/dL RDW Std Deviation 43.3 (36.4-46.3) fL RDW Coeff of Levon 13.3 (11.5-14.5) % Plt Count 226 (130-400) K/uL MPV 9.8 (7.4-10.4) fL Immature Gran % (Auto) 0.0 % Neut % (Auto) 61.5 % Lymph % (Auto) 27.8 % [place] % (Auto) 9.7 % Eos % (Auto) 0.8 % Baso % (Auto) 0.2 % Neut # (Auto) 3.06 (1.4-6.5) K/uL Lymph # (Auto) 1.38 (1.2-3.4) K/uL [place] # (Auto) 0.48 (0.11-0.59) K/uL Eos # (Auto) 0.04 (0-0.5) K/uL Baso # (Auto) 0.01 (0-0.2) K/uL Immature Gran # (Auto) 0.00 (0.00-0.02) K/uL PT 19.3 H (9.0-12.0) Seconds INR 2.0 H (0.9-1.1) APTT (21.0-31.0) Seconds PTT Ratio Sodium 139 (136-145) mmol/L Potassium 4.3 (3.5-5.1) mmol/L Chloride 107 (98-107) mmol/L Carbon Dioxide 27 (21-32) mmol/L Anion Gap 5.0 (3-11) BUN 13 (7-18) mg/dl Creatinine 0.88 (0.6-1.4) mg/dl Est Cr Clr Drug Dosing 191.5 Est GFR ( Amer) 129.9 ml/min Est GFR (Non-Af Amer) 112.1 ml/min BUN/Creatinine Ratio 14.5 (10-20) Glucose 98 (70-99) mg/dl Calcium 8.9 (8.5-10.1) mg/dl Magnesium 2.4 (1.8-2.4) mg/dl Total Bilirubin (0.2-1) mg/dl AST (15-37) U/L ALT (12-78) U/L Alkaline Phosphatase (45-117) U/L Troponin I < 0.015 (0-0.045) ng/ml NT-Pro-B Natriuret Pep (0-450) pg/ml Total Protein (6.4-8.2) gm/dl Albumin (3.4-5.0) gm/dl Globulin (2.5-4.0) gm/dl Albumin/Globulin Ratio (0.9-2) Lipase (73-393) U/L Specimen Hemolysis COVID-19 Eval Order SARS-CoV-2 (PCR) (Negative) Influ A Molecular Assay (Negative) Influ B Molecular Assay (Negative) 09/18/21 09/18/21 09/18/21 Range/Units 18:35 18:35 18:35 WBC (4.8-10.8) K/uL RBC (4.7-6.1) M/uL Hgb (14.0-18.0) g/dL Hct (42-52) % MCV (80-100) fL MCH (25-34) pg MCHC (32-36) g/dL RDW Std Deviation (36.4-46.3) fL RDW Coeff of Levon (11.5-14.5) % Plt Count (130-400) K/uL MPV (7.4-10.4) fL Immature Gran % (Auto) % Neut % (Auto) % Lymph % (Auto) % [place] % (Auto) % Eos % (Auto) % Baso % (Auto) % Neut # (Auto) (1.4-6.5) K/uL Lymph # (Auto) (1.2-3.4) K/uL [place] # (Auto) (0.11-0.59) K/uL Eos # (Auto) (0-0.5) K/uL Baso # (Auto) (0-0.2) K/uL Immature Gran # (Auto) (0.00-0.02) K/uL PT (9.0-12.0) Seconds INR (0.9-1.1) APTT (21.0-31.0) Seconds PTT Ratio Sodium (136-145) mmol/L Potassium (3.5-5.1) mmol/L Chloride (98-107) mmol/L Carbon Dioxide (21-32) mmol/L Anion Gap (3-11) BUN (7-18) mg/dl Creatinine (0.6-1.4) mg/dl Est Cr Clr Drug Dosing Est GFR ( Amer) ml/min Est GFR (Non-Af Amer) ml/min BUN/Creatinine Ratio (10-20) Glucose (70-99) mg/dl Calcium (8.5-10.1) mg/dl Magnesium (1.8-2.4) mg/dl Total Bilirubin (0.2-1) mg/dl AST (15-37) U/L ALT (12-78) U/L Alkaline Phosphatase (45-117) U/L Troponin I (0-0.045) ng/ml NT-Pro-B Natriuret Pep (0-450) pg/ml Total Protein (6.4-8.2) gm/dl Albumin (3.4-5.0) gm/dl Globulin (2.5-4.0) gm/dl Albumin/Globulin Ratio (0.9-2) Lipase (73-393) U/L Specimen Hemolysis COVID-19 Eval Order Covid19 at [facility] SARS-CoV-2 (PCR) NEGATIVE (Negative) Influ A Molecular Assay Negative (Negative) Influ B Molecular Assay Negative (Negative) 09/18/21 09/18/21 09/18/21 Range/Units 18:35 18:35 18:35 WBC 6.03 (4.8-10.8) K/uL RBC 4.57 L (4.7-6.1) M/uL Hgb 13.5 L (14.0-18.0) g/dL Hct 40.4 L (42-52) % MCV 88.4 (80-100) fL MCH 29.5 (25-34) pg MCHC 33.4 (32-36) g/dL RDW Std Deviation 43.0 (36.4-46.3) fL RDW Coeff of Levon 13.3 (11.5-14.5) % Plt Count 236 (130-400) K/uL MPV 9.9 (7.4-10.4) fL Immature Gran % (Auto) 0.3 % Neut % (Auto) 77.3 % Lymph % (Auto) 15.9 % [place] % (Auto) 6.1 % Eos % (Auto) 0.2 % Baso % (Auto) 0.2 % Neut # (Auto) 4.66 (1.4-6.5) K/uL Lymph # (Auto) 0.96 L (1.2-3.4) K/uL [place] # (Auto) 0.37 (0.11-0.59) K/uL Eos # (Auto) 0.01 (0-0.5) K/uL Baso # (Auto) 0.01 (0-0.2) K/uL Immature Gran # (Auto) 0.02 (0.00-0.02) K/uL PT 19.4 H (9.0-12.0) Seconds INR 2.0 H (0.9-1.1) APTT 35.9 H (21.0-31.0) Seconds PTT Ratio 1.4 Sodium 138 (136-145) mmol/L Potassium 4.2 (3.5-5.1) mmol/L Chloride 106 (98-107) mmol/L Carbon Dioxide 24 (21-32) mmol/L Anion Gap 8.0 (3-11) BUN 10 (7-18) mg/dl Creatinine 0.83 (0.6-1.4) mg/dl Est Cr Clr Drug Dosing Not Reportable Est GFR ( Amer) 133.1 ml/min Est GFR (Non-Af Amer) 114.8 ml/min BUN/Creatinine Ratio 11.6 (10-20) Glucose 103 H (70-99) mg/dl Calcium 8.9 (8.5-10.1) mg/dl Magnesium (1.8-2.4) mg/dl Total Bilirubin 1.1 H (0.2-1) mg/dl AST 29 (15-37) U/L ALT 34 (12-78) U/L Alkaline Phosphatase 55 (45-117) U/L Troponin I < 0.015 (0-0.045) ng/ml NT-Pro-B Natriuret Pep 414 (0-450) pg/ml Total Protein 7.9 (6.4-8.2) gm/dl Albumin 3.4 (3.4-5.0) gm/dl Globulin 4.5 H (2.5-4.0) gm/dl Albumin/Globulin Ratio 0.8 L (0.9-2) Lipase 62 L (73-393) U/L Specimen Hemolysis COVID-19 Eval Order SARS-CoV-2 (PCR) (Negative) Influ A Molecular Assay (Negative) Influ B Molecular Assay (Negative) Diagnostic Findings Telemetry reviewed - NSR in the 60-70's, conduction delay noted. No concerning arrhythmias Repeat EKG this morning: NSR with LBBB no change from previous EKG on admission: Normal sinus rhythm Left bundle branch block No change from previous Chest xray reviewed - no acute process. No pleural effusions Prelim echo results completed this morning: Normal LV function Normal sized aortic root Appropriate function of mechanical mitral valve No change from prior Medications Administered Current Inpatient Medications Acetaminophen (Acetaminophen 325 Mg Tab) 650 mg PO Q4H PRN PRN Reason: Pain or Fever Stop: 10/18/21 23:58 Last Admin: 09/19/21 05:17 Dose: 650 mg Documented by: Amlodipine Besylate (Amlodipine Besylate 5 Mg Tab) 5 mg PO BID [facility] Stop: 10/19/21 08:59 Last Admin: 09/19/21 08:27 Dose: 5 mg Documented by: Clopidogrel Bisulfate (Clopidogrel Bisulfate 75 Mg Tab) 75 mg PO QAM [facility] Stop: 10/19/21 08:59 Last Admin: 09/19/21 08:27 Dose: 75 mg Documented by: Duloxetine HCl (Duloxetine Hcl 60 Mg Cap) 60 mg PO QAM [facility] Stop: 10/19/21 08:59 Last Admin: 09/19/21 08:27 Dose: 60 mg Documented by: Duloxetine HCl (Duloxetine Hcl 30 Mg Cap) 30 mg PO QAM [facility] Stop: 10/19/21 08:59 Last Admin: 09/19/21 08:27 Dose: 30 mg Documented by: Ketorolac Tromethamine (Ketorolac Tromethamine 15 Mg/Ml Vial) 15 mg IV Q6H PRN PRN Reason: Pain Stop: 09/24/21 06:22 Last Admin: 09/19/21 08:23 Dose: 15 mg Documented by: Losartan Potassium (Losartan Potassium 50 Mg Tab) [facility] [place] [facility] [place]: 10/19/21 08:59 Last Admin: 09/19/21 08:28 Dose: 100 mg Documented by: Metoprolol Succinate (Metoprolol Succ 50mg Ext Rel Tab) 100 mg PO [facility] Stop: 10/19/21 08:59 Last Admin: 09/19/21 08:28 Dose: 100 mg Documented by: Multivitamins (Multivitamin Tab) 1 tab PO DAILY [facility] Stop: 10/19/21 08:59 Last Admin: 09/19/21 08:29 Dose: 1 tab Documented by: Nitroglycerin (Nitroglycerin Sl 0.4 Mg/Tab Tab) 0.4 mg SL UD PRN PRN Reason: Chest Pain Stop: 10/18/21 23:58 Ondansetron HCl (Ondansetron Inj 2 Mg/Ml 2 Ml Vial) 4 mg IV Q6H PRN PRN Reason: Nausea Stop: 10/18/21 23:58 Polyethylene Glycol (Polyethylene (Miralax) 17 Gm Pack) 17 gm PO DAILY PRN PRN Reason: Constipation Stop: 10/18/21 23:58 Potassium Chloride (Potassium Chloride Crtab 20 Meq Tabcr) 20 meq PO [facility] Stop: 10/19/21 08:59 Last Admin: 09/19/21 08:26 Dose: 20 meq Documented by: Spironolactone (Spironolactone 25 Mg Tab) 25 mg PO [facility] Stop: 10/19/21 08:59 Last Admin: 09/19/21 08:28 Dose: 25 mg Documented by: Torsemide (Torsemide 10 Mg Tab) 10 mg PO [facility] Stop: 10/19/21 08:59 Last Admin: 09/19/21 08:28 Dose: 10 mg Documented by: Warfarin Sodium (Warfarin Sod 5 Mg Tab) 15 mg PO SuTuWeThSa [facility] Stop: 10/19/21 15:59 Warfarin Sodium (Warfarin Sod 10 Mg Tab) 10 mg PO MoFr [facility] Stop: 10/21/21 15:59
--- NOTE | 2021-09-19 08:46 | Electrocardiogram Report ---
Test Reason : Blood Pressure : / mmHG Vent. Rate : 073 BPM Atrial Rate : 073 BPM P-R Int : 194 ms QRS Dur : 160 ms QT Int : 458 ms P-R-T Axes : 031 -12 106 degrees QTc Int : 504 ms Normal sinus rhythm Left bundle branch block Abnormal ECG When compared with ECG of 12-JUL-2021 17:12, No significant change was found Confirmed by Dillon Brown ([id number]) on 09/19/2021 8:45:34 AM Referred By: REFERRED SELF Confirmed By:Dillon Brown
--- NOTE | 2021-09-19 08:52 | Electrocardiogram Report ---
Test Reason : Blood Pressure : / mmHG Vent. Rate : 064 BPM Atrial Rate : 064 BPM P-R Int : 224 ms QRS Dur : 160 ms QT Int : 494 ms P-R-T Axes : 023 044 108 degrees QTc Int : 509 ms Sinus rhythm with 1st degree A-V block Left bundle branch block Abnormal ECG When compared with ECG of 18-SEP-2021 18:46, HI interval has increased Confirmed by Dillon Brown ([id number]) on 09/19/2021 8:51:56 AM Referred By: REFERRED SELF Confirmed By:Dillon Brown
[2021-09-19] MEDS ORDERED: WARFARIN SOD 5 MG TAB PO SCH (16:00)
[2021-09-19] MEDS ORDERED: TERAZOSIN HCL 1 MG CAP PO SCH (21:00)
--- NOTE | 2021-09-19 23:51 | Hospitalist Progress Note ---
Date of Service September 19, 2021 Assessment & Plan (1) Chest pain: Plan: Present on admission with chest pain associated with nausea/vomiting and diarrhea Atypical chest pain in presentation Troponin negative x3 EKG showed no acute ischemic changes Echo showed no regional wall motion abnormality with ejection fraction 55 to 60% Cardiology on board No additional cardiac testing require Continue monitor Diarrhea Possible related to viral gastroenteritis Continue monitor electrolytes Diet advance as tolerated History of chronic diastolic congestive heart failure. Continue his home diuretics, Toprol-XL and losartan. Continue monitor for sign of volume overload. History of chronic nonocclusive deep venous thrombosis Continue on Coumadin with INR therapeutic. Hypertension: Continue amlodipine, losartan, metoprolol. History of congenital bicuspid aortic valve history of ascending aortic dissection status post aortic valve replacement on Coumadin, metoprolol and Plavix. Tobacco use intermittently. Continue on tobacco cessation Deep venous thrombosis prophylaxis: On Coumadin. Admission and Anticipated Discharge Date Admission Date: September 18, 2021 Subjective Patient was seen and examined for follow-up of chest pain Sitting in chair with no acute distress Patient said that is not having any chest pain and nausea He said he had about 4 episodes of watery diarrhea today Review of Systems Review of Systems: All systems reviewed & are unremarkable except as noted in Subjective Physical Exam Physical Exam: General- No acute distress Head- atraumatic Eyes- PERRL, EOMI, ENT- oropharynx clear Neck- supple, no JVD Lungs- clear to auscultation Heart- regular rhythm; +click murmur Abdomen- normal bowel sounds, soft, nontender Extremities- no calf tenderness Neuro- alert, oriented x 3; PERRL, EOMI; no facial palsy; no dysarthria Skin- warm & dry Results & Data Results & Data ([facility]) Vital Signs (Past 12 Hours) Vital Signs Temp Pulse Pulse Resp BP Pulse Ox 09/19/21 23:39 37 C 72 16 164/56 H 98 09/19/21 19:21 36.8 C 69 18 115/67 97 09/19/21 15:07 68 09/19/21 14:52 36.7 C 69 20 137/84 94 (1) Chest pain Chest pain type: unspecified Qualified Code(s): R07.9 - Chest pain, unspecified
[2021-09-20] MEDS: KETOROLAC TROMETHAMINE 15 MG/ML VIAL IV PRN ×2 (02:33→08:45)
[2021-09-20] MEDS ORDERED: PROMETHAZINE HCL 12.5 MG in SODIUM CHLORIDE 0.9% 50 ML IV PRN (05:32)
[2021-09-20] MEDS: ACETAMINOPHEN 325 MG TAB PO PRN (06:33)
--- NOTE | 2021-09-20 07:16 | CT Scan Report ---
HEAD CT NONCONTRAST CT DOSE: 537.48 mGy.cm HISTORY: Headache. TECHNIQUE: Multiaxial CT images of the head were performed without the use of intravenous contrast. A utomated exposure control was utilized for this study. A dose lowering technique was utilized adheri ng to the principles of ALARA. Comparison: Head CT 04/07/2021. Findings: The paranasal sinuses and mastoid air cells are clear. The calvarium and skull base are int act. The ventricles and sulci are within normal limits. There is no mass, hematoma, midline shift, or acute infarct. Small focal hypodense areas within the periventricular white matter of the bilateral temporoparietal lobes remain stable. These could represent prominent perivascular spaces and remain u nchanged. Impression: No significant change compared to the prior study. No acute intracranial abnormality. ACT 112: Negative or not required by law. Electronically signed by: Bert Schaffer M.D. 09/20/2021 7:14 AM
[2021-09-20 08:12] LABS: INR 1.9 (0.9-1.1); Prothrombin Time 18.3 Seconds (9.0-12.0)
[2021-09-20 08:16] LABS: BUN Creatinine Ratio 21.5 (10-20); Calcium 8.7 mg/dl (8.5-10.1); Creatinine Clr Calc Pharmacy 176.1 ml/min; Est GFR (African American) 129.9 ml/min; Est GFR (Non-African American) 112.1 ml/min; Potassium 4.2 mmol/L (3.5-5.1)
[2021-09-20] MEDS: DULoxetine HCL 30 MG CAP PO SCH (08:49)
[2021-09-20] MEDS: amLODIPine BESYLATE 5 MG TAB PO SCH (08:49)
[2021-09-20] MEDS: DULoxetine HCL 60 MG CAP PO SCH (08:49)
[2021-09-20] MEDS: CLOPIDOGREL BISULFATE 75 MG TAB PO SCH (08:49)
[2021-09-20] MEDS: METOPROLOL SUCC 50MG EXT REL TAB PO SCH (08:50)
[2021-09-20] MEDS: LOSARTAN POTASSIUM 50 MG TAB PO SCH (08:50)
[2021-09-20] MEDS: MULTIVITAMIN TAB PO SCH (08:51)
[2021-09-20] MEDS: SPIRONOLACTONE 25 MG TAB PO SCH (08:52)
[2021-09-20] MEDS: POTASSIUM CHLORIDE CRTAB 20 MEQ TABCR PO SCH (08:52)
[2021-09-20] MEDS: TORSEMIDE 10 MG TAB PO SCH (08:52)
--- NOTE | 2021-09-20 10:18 | Cardiology Progress Note ---
Date of Service September 20, 2021 Assessment & Plan (1) Gastroenteritis: (2) Chronic heart failure with preserved ejection fraction: (3) LBBB (left bundle branch block): (4) Atypical chest pain: (5) HTN (hypertension): (6) History of aortic dissection: (7) H/O mechanical aortic valve replacement: Plan: Complex 35 year old male admitted for likely gastroenteritis with 2-3 days of nausea/vomiting/dry heaving/diarrhea/lack of appetite -Symptoms slowly improving -advance diet as tolerated Atypical chest pain reported, unchanged from his prior complaints of chronic atypical pain -Negative troponin -Echo with stable findings, preserved LV systolic function, stable valvular measurements, stable aortic measurements -EKG with chronic LBBB, unchanged -Chest pain resolved Hypertension -BP improved at home with addition of terazosin 2 mg as outpatient. BP has been controlled during admission. -continue all other cardiac medications Stable from cardiac perspective for discharge Case discussed with Dr. Dupont. Admission and Anticipated Discharge Date Admission Date: September 18, 2021 Supervising Physician Co-Signing Physician Notes Patient seen and examined, chart, medications, telemetry reviewed. No cardiac complaints. GI issues appear to be improving not completely resolved. He w ishes to continue care at home which is appropriate. Continue outpatient cardiac medications as previously prescribed Subjective Patient resting in bed. Reports nausea and headache overnight, diarrhea improved. No recurrent vomiting. No recurrent chest pain, SOB. Anxious for discharge. Tolerating light diet. BP controlled. Review of Systems Review of Systems: All systems reviewed & are unremarkable except as noted in HPI & below Physical Exam Constitutional: WD/WN, vitals as above well nourished and + obese; no acute distress Eyes: PERRL, conjunctivae normal, anicteric sclerae Neck: + thick neck Respiratory: normal respiratory effort, lungs clear to auscultation Cardiovascular: Rate/Rhythm: regular rate and regular rhythm Heart Sounds: + click (crisp mechanical heart sounds) and + murmur Vessels: no JVD Extremities: no edema Gastrointestinal (Abdomen): normal bowel sounds, soft, nontender, no hepatosplenomegaly Musculoskeletal: no cyanosis or clubbing, extremities motor strength 5/5 Skin: no rashes, warm and dry Neurologic: PERRL, EOMI, accommodation nl, no face palsy, no dysarthria Psychiatric: A+Ox3, euthymic affect Results & Data ([facility]) Vital Signs (Past 12 Hours) Vital Signs Temp Pulse Pulse Resp BP Pulse Ox 09/20/21 07:45 36.9 C 75 18 137/74 98 09/20/21 03:55 36.7 C 72 18 142/72 H 95 09/19/21 23:39 37 C 72 16 164/56 H 98 09/19/21 22:18 77 Laboratory Results 09/20/21 09/20/21 09/19/21 Range/Units 07:39 07:39 17:27 PT 18.3 H (9.0-12.0) Seconds INR 1.9 H (0.9-1.1) Sodium 141 (136-145) mmol/L Potassium 4.2 (3.5-5.1) mmol/L Chloride 108 H (98-107) mmol/L Carbon Dioxide 26 (21-32) mmol/L Anion Gap 7.0 (3-11) BUN 19 H (7-18) mg/dl Creatinine 0.88 (0.6-1.4) mg/dl Est Cr Clr Drug Dosing 176.1 ml/min Est GFR ( Amer) 129.9 ml/min Est GFR (Non-Af Amer) 112.1 ml/min BUN/Creatinine Ratio 21.5 H (10-20) Glucose 100 H (70-99) mg/dl Calcium 8.7 (8.5-10.1) mg/dl Troponin I < 0.015 (0-0.045) ng/ml 09/19/21 Range/Units 11:02 PT (9.0-12.0) Seconds INR (0.9-1.1) Sodium (136-145) mmol/L Potassium (3.5-5.1) mmol/L Chloride (98-107) mmol/L Carbon Dioxide (21-32) mmol/L Anion Gap (3-11) BUN (7-18) mg/dl Creatinine (0.6-1.4) mg/dl Est Cr Clr Drug Dosing ml/min Est GFR ( Amer) ml/min Est GFR (Non-Af Amer) ml/min BUN/Creatinine Ratio (10-20) Glucose (70-99) mg/dl Calcium (8.5-10.1) mg/dl Troponin I < 0.015 (0-0.045) ng/ml Diagnostic Findings Telemetry reviewed - NSR without arrhythmias. Echo report reviewed completed 09/19/21: Compared to prior study, no significant change. LV is normal in size Septal motion is consistent with conduction abnormality. No wall motion abnormalities EF 55-60% [employer] [employer] aortic mechanical prosthesis Normal gradients for prosthetic valve. No significant aortic regurgitation. Aortic root is normal size. Medications Administered Current Inpatient Medications Acetaminophen (Acetaminophen 325 Mg Tab) 650 mg PO Q4H PRN PRN Reason: Pain or Fever Stop: 10/18/21 23:58 Last Admin: 09/20/21 06:33 Dose: 650 mg Documented by: Amlodipine Besylate (Amlodipine Besylate 5 Mg Tab) 5 mg PO BID [facility] Stop: 10/19/21 08:59 Last Admin: 09/20/21 08:49 Dose: 5 mg Documented by: Clopidogrel Bisulfate (Clopidogrel Bisulfate 75 Mg Tab) 75 mg PO QAM [facility] Stop: 10/19/21 08:59 Last Admin: 09/20/21 08:49 Dose: 75 mg Documented by: Duloxetine HCl (Duloxetine Hcl 60 Mg Cap) 60 [facility] [place] Stop: 10/19/21 08:59 Last Admin: 09/20/21 08:49 Dose: 60 mg Documented by: Duloxetine HCl (Duloxetine Hcl 30 Mg Cap) 30 mg PO Q[facility] [place] Stop: 10/19/21 08:59 Last Admin: 09/20/21 08:49 Dose: 30 mg Documented by: Promethazine HCl 12.5 mg/ (Sodium Chloride) 50.5 mls @ 202 mls/hr IV Q6H PRN PRN Reason: Nausea And Vomiting Stop: 10/20/21 05:31 Last Infusion: 09/20/21 06:35 Dose: Infused Documented by: Ketorolac Tromethamine (Ketorolac Tromethamine 15 Mg/Ml Vial) 15 mg IV Q6H PRN PRN Reason: Pain Stop: 09/24/21 06:22 Last Admin: 09/20/21 08:45 Dose: 15 mg Documented by: Losartan Potassium (Losartan Potassium 50 Mg Tab) 100 mg PO QAM [facility] Stop: 10/19/21 08:59 Last Admin: 09/20/21 08:50 Dose: 100 mg Documented by: Metoprolol Succinate (Metoprolol Succ 50mg Ext Rel Tab) 100 mg PO Q[facility] [place] Stop: 10/19/21 08:59 Last Admin: 09/20/21 08:50 Dose: 100 mg Documented by: Multivitamins (Multivitamin Tab) 1 tab PO DAILY [facility] Stop: 10/19/21 08:59 Last Admin: 09/20/21 08:51 Dose: 1 tab Documented by: Nitroglycerin (Nitroglycerin Sl 0.4 Mg/Tab Tab) 0.4 mg SL UD PRN PRN Reason: Chest Pain Stop: 10/18/21 23:58 Ondansetron HCl (Ondansetron Inj 2 Mg/Ml 2 Ml Vial) 4 mg IV Q6H PRN PRN Reason: Nausea Stop: 10/18/21 23:58 Last Admin: 09/20/21 02:30 Dose: 4 mg Documented by: Polyethylene Glycol (Polyethylene (Miralax) 17 Gm Pack) 17 gm PO DAILY PRN PRN Reason: Constipation Stop: 10/18/21 23:58 Potassium Chloride (Potassium Chloride Crtab 20 Meq Tabcr) 20 meq PO QA[facility] [place] Stop: 10/19/21 08:59 Last Admin: 09/20/21 08:52 Dose: 20 meq Documented by: Spironolactone (Spironolactone 25 Mg Tab) 25 mg PO QAM [facility] Stop: 10/19/21 08:59 Last Admin: 09/20/21 08:52 Dose: 25 mg Documented by: Terazosin HCl (Terazosin Hcl 1 Mg Cap) 2 mg PO HS [facility] Stop: 10/19/21 20:59 Last Admin: 09/19/21 20:18 Dose: 2 mg Documented by: Torsemide (Torsemide 10 Mg Tab) 10 mg PO QAM [facility] Stop: 10/19/21 08:59 Last Admin: 09/20/21 08:52 Dose: 10 mg Documented by: Warfarin Sodium (Warfarin Sod 5 Mg Tab) 15 mg PO SuTuWeThSa [facility] Stop: 10/19/21 15:59 Last Admin: 09/19/21 15:22 Dose: 15 mg Documented by: Warfarin Sodium (Warfarin Sod 10 Mg Tab) 10 mg PO MoFr [facility] Stop: 10/21/21 15:59
--- NOTE | 2021-09-20 13:16 | Discharge Summary ---
Date of Service September 20, 2021 Admission HPI Per Admitting Provider CHIEF COMPLAINT: Not feeling well. HISTORY OF PRESENT ILLNESS: This is a 35-year-old male with past medical history significant for chronic diastolic heart failure with EF of 55-60%, congenital bicuspid aortic valve, ascending aortic dissection, status post surgery, mechanical aortic valve on Coumadin, chronic left bundle-branch block, hypertension, hyperlipidemia, chronic anemia, baseline hemoglobin 12-13, int ermittent tobacco abuse, presents with complaining of chest pain, headache, some nausea, feeling of weakness. Hemodynamically stable. Labs looks okay. complains of headache. Says he was nauseous and dry heaving today. Denies any cough, no fever, no blurred visions, no runny nose, no sore throat. Appetite is not that great for the last couple of days. Chest pain is in the middle of the chest, 5/10 severity, no radiation. It comes and goes on its own. No shortness of breath, no belly pain, normal bowel and bladder movements. Currently, hemodynamically stable. Admission Exam Per Admitting Provider GENERAL: The patient is morbidly obese, not in acute distress. VITAL SIGNS: Temperature 36.6, pulse 86, respiratory rate 22, blood pressure 153/77, oxygen 97% on room air. HEENT: Pupils equal, round and reactive to light. Oral mucosa moist. NECK: No JVD, no neck masses. CARDIOVASCULAR: S1 and S2 heard. Regular rate and rhythm. No murmur, no gallop. RESPIRATORY SYSTEM: Normal AP diameter. No accessory muscle use. No wheezing, no crackles. ABDOMEN: Soft, bowel sounds present, nontender, no distention. CENTRAL NERVOUS SYSTEM: Cranial nerves II-XII grossly intact, nonfocal. EXTREMITIES: Trace pedal edema, no erythema seen. Principal Diagnosis Chest pain Diarrhea History of chronic diastolic congestive heart failure. History of chronic nonocclusive deep venous thrombosis Hypertension: History of congenital bicuspid aortic valve history of ascending aortic dissection status post aortic valve replacement Tobacco use Discharge Exam General- No acute distress Head- atraumatic Eyes- PERRL, EOMI, ENT- oropharynx clear Neck- supple, no JVD Lungs- clear to auscultation Heart- regular rhythm; +click murmur Abdomen- normal bowel sounds, soft, nontender Extremities- no calf tenderness Neuro- alert, oriented x 3; PERRL, EOMI; no facial palsy; no dysarthria Skin- warm & dry Discharge Data Allergies Allergy/AdvReac Type Severity Reaction Status Date / Time No Known Allergies Allergy Verified 09/18/21 18:34 Consultations 09/18/21 20:06 ED Decision to Admit Stat 09/19/21 08:00 Consult Cardiology Routine Ordered Studies 09/20/21 05:32 CT head/brain wo con Urgent HEAD CT NONCONTRAST CT DOSE: 537.48 mGy.cm HISTORY: Headache. TECHNIQUE: Multiaxial CT images of the head were performed without the use of intravenous contrast. Automated exposure control was utilized for this study. A dose lowering technique was utilized adhering to the principles of ALARA. Comparison: Head CT 04/07/2021. Findings: The paranasal sinuses and mastoid air cells are clear. The calvarium and skull base are intact. The ventricles and sulci are within normal limits. There is no mass, hematoma, midline shift, or acute infarct. Small focal hypodense areas within the periventricular white matter of the bilateral temporoparietal lobes remain stable. These could represent prominent perivascular spaces and remain unchanged. Impression: No significant change compared to the prior study. No acute intracranial abnormality. ACT 112: Negative or not required by law. Electronically signed by: Bert Schaffer M.D. 09/20/2021 7:14 AM Dictated:09/20/21707 Transcribed: 09/20/21711 XR chest 1V portable HISTORY: Atypical Chest Pain COMPARISON: Chest 07/12/2021. FINDINGS: The heart remains mildly enlarged. There is a cardiac valve prosthesis and poststernotomy changes again noted. The lungs are clear. No pleural effusions. No pneumothorax. IMPRESSION: No significant change compared to the prior study. No acute process. ACT 112: Negative or not required by law. Electronically signed by: Bert Schaffer M.D. 09/18/2021 7:19 PM Dictated:09/18/211917 Transcribed: 09/18/211917 Hospital Course (1) Chest pain: Present on admission with chest pain associated with nausea/vomiting and diarrhea Atypical chest pain in presentation Troponin negative x3 EKG showed no acute ischemic changes Echo showed no regional wall motion abnormality with ejection fraction 55 to 60% Cardiology on board No additional cardiac testing require Continue monitor Diarrhea Possible related to viral gastroenteritis Continue monitor electrolytes Diet advance as tolerated History of chronic diastolic congestive heart failure. Continue his home diuretics, Toprol-XL and losartan. Continue monitor for sign of volume overload. History of chronic nonocclusive deep venous thrombosis Continue on Coumadin with INR therapeutic. Hypertension: Continue amlodipine, losartan, metoprolol. History of congenital bicuspid aortic valve history of ascending aortic dissection status post aortic valve replacement on Coumadin, metoprolol and Plavix. Tobacco use intermittently. Continue on tobacco cessation Deep venous thrombosis prophylaxis: On Coumadin. Total Time Total Time Spent Total Time Spent (In Minutes): 35 minutes Discharge Plan Discharge Items Patient Disposition: Home - Self-Care Reason For Visit: Illness Discharge Diagnosis: Chest pain Diarrhea History of chronic diastolic congestive heart failure. History of chronic nonocclusive deep venous thrombosis Hypertension: History of congenital bicuspid aortic valve history of ascending aortic dissection status post aortic valve replacement Tobacco use Activity: Resume your previous activity Non-emergency contact: Primary Care Provider Call non-emergency contact if: you have any medication questions Follow-up/Referrals: Brian Guido MD [Primary Care Provider] - (Date & Time 09/26/2021 3:00 PM Provider Brian Guido MD Department [facility] ) Diet: Heart Healthy Addtl Attending Provider Instructions: Follow up with your primary care provider Dr. Guido on 09/26/21 @ 3pm @ the [facility] Follow up with your cardiology Follow up with the coumadin clinic to monitor PT/INR Seek medical attention if your symptoms worsening Counseling on smoking cessation Pending Studies at Discharge: No Stand-Alone Forms: My [facility], Smoking Cessation Medications and DC Order Prescriptions: Continued warfarin 5 mg tablet 5 mg PO UD RF: 0 clopidogrel 75 mg tablet 75 mg PO QAM RF: 0 amlodipine 5 mg tablet 5 mg PO BID RF: 0 losartan 100 mg tablet 100 mg PO QAM RF: 0 duloxetine 60 mg capsule,delayed release(DR/EC) 60 mg PO QAM RF: 0 acetaminophen [Tylenol Extra Strength] 500 mg Tablet 1,000 mg PO Q6H PRN (Reason: Pain) RF: 0 potassium chloride 10 mEq tablet extended release 20 meq PO QAM RF: 0 metoprolol succinate 100 mg tablet extended release 24 hr 100 mg PO QAM RF: 0 duloxetine 30 mg capsule,delayed release(DR/EC) 30 mg PO QAM RF: 0 multivitamin Tablet 1 tab PO DAILY RF: 0 torsemide 10 mg Tablet 10 mg PO QAM Qty: 30 RF: 1 spironolactone 25 mg Tablet 25 mg PO QAM Qty: 30 RF: 1 omega 4-pow-gnk-fish oil 900-1,400 mg Capsule,Delayed Release(Dr/Ec) 1 cap PO QAM RF: 0 Discharge Orders: Discharge Order (Routine); Ordered 09/20/21 Ordered By: Terry Rob/Other Patient Handouts: Coping with Heart Failure Admission Data Admit Date/Time: 09/18/21 21:36 Attending Provider: Terry Bo Admit Provider: David Simon Primary Care Provider: Brian Guido Other Providers: David Simon ; Pepe Dupont Other Interventions: Discharge Summary Assessment (RN) Last Done: 09/20/21 13:41
--- NOTE | 2021-09-21 07:25 | Electrocardiogram Report ---
Test Reason : Blood Pressure : / mmHG Vent. Rate : 071 BPM Atrial Rate : 071 BPM P-R Int : 182 ms QRS Dur : 152 ms QT Int : 470 ms P-R-T Axes : 026 -14 121 degrees QTc Int : 510 ms Normal sinus rhythm Left bundle branch block Abnormal ECG When compared with ECG of 19-SEP-2021 06:24, [place] interval has decreased Confirmed by Dillon Brown ([id number]) on 09/21/2021 7:25:14 AM Referred By: REFERRED SELF Confirmed By:Dillon Brown
[2021-09-21] MEDS ORDERED: WARFARIN SOD 10 MG TAB PO SCH (16:00)
== END 2021-09-20 14:33 | disposition home or self-care (01) ==
LOC: 2N 17:52 → ED 17:52 → 2N 22:54

== ENCOUNTER 2024-05-26 08:02 | Inpatient (IN) ==
--- NOTE | 2024-05-26 08:33 | Emergency Department Note ---
History of Present Illness General Chief complaint: Fall Stated complaint: FALL A WEEK AGO, PAIN ALL OVER Time Seen by Provider: 05/26/24 08:26 History of Present Illness Maximum Pain Intensity: 10 NAME: ROWDY ARMIJO AGE: 38 SEX: M : 1985 ARRIVES VIA: Walk-In INFORMANT: Patient ED PROVIDER(S): FELA Keith, Yusuf Hurt MD The patient is a 38-year-old male who arrives to the emergency department for evaluation of injuries sustained from a mechanical fall 1.5 weeks ago. He reports he was walking up a small set of steps. When he attempted to step over a few missing steps, and attempted to grab a door handle, however missed and fell onto his right hip and right back. Reports since that time he has had increasing pain with movement, and significant back spasms. He reports a history of 4 bulging lumbar disks on previous MRI and denies follow-up with orthopedic spine. He reports a history of a hernia in the lower abdomen, and states he is having some diffuse lower abdominal pain. He reports cramping throughout his body from the back of his head all the way down the back of his right leg. He reports right-sided chest pain, with slight shortness of breath. He denies head strike, and does take warfarin for a mechanical valve. He has a history of a chronic aortic dissection, as well as congestive heart failure. He is alert and oriented at this time. Home Medications Medication Instructions Recorded Confirmed Type clopidogrel 75 mg tablet 75 mg PO QAM 11/12/18 05/26/24 History duloxetine 60 mg capsule,delayed 60 mg PO DAILY 11/12/18 05/26/24 History release warfarin 5 mg tablet See Rx Instructions .Route .COMPLEX 12/06/19 05/26/24 History duloxetine 30 mg capsule,delayed 30 mg PO DAILY 03/11/21 05/26/24 History release acetaminophen 500 mg tablet 1,000 mg PO Q6H PRN Pain 04/08/21 05/26/24 History (Tylenol Extra Strength) multivitamin 1 tab PO DAILY 04/20/21 05/26/24 History atorvastatin 10 mg tablet 10 mg PO HS 05/26/24 05/26/24 History cholecalciferol (vitamin D3) 125 125 mcg PO DAILY 05/26/24 05/26/24 History mcg (5,000 unit) tablet (Vitamin D3) losartan 50 mg tablet 50 mg PO BID 05/26/24 05/26/24 History metoprolol tartrate 25 mg tablet 75 mg PO BID 05/26/24 05/26/24 History Allergies Allergy/AdvReac Type Severity Reaction Status Date / Time No Known Allergies Allergy Verified 05/26/24 09:34 Past Med/Surg History Problem List (Updated 05/26/24 @ 16:41 by FELA Garcia) Fall (Acute) Ambulatory dysfunction (Acute) Obesity History of gastric bypass Anxiety and depression HTN (hypertension) Chronic heart failure with preserved ejection fraction (Acute) Anemia (Acute) Bilateral edema of lower extremity (Acute) Volume overload (Acute) Fluid retention UTI (urinary tract infection) Acute heart failure with preserved ejection fraction (HFpEF) Bilateral flank pain (Acute) Chest tightness (Acute) Fluid overload (Acute) Intractable abdominal pain (Acute) Abdominal wall hernia (Acute) Chronic thoracic aortic dissection (Acute) Anticoagulated on warfarin (Acute) S/P AVR (aortic valve replacement) The patient will need antibiotic prophylaxis for any surgical procedures. I would hold his warfarin in anticipation of surgery. Once his INR however, normalizes he will require a bridge. I think we can discontinue his Plavix today and restart after surgery to reduce the risk of bleeding. DVT prophylaxis History of aortic dissection Prolonged Q-T interval on ECG DDD (degenerative disc disease), lumbar (Chronic) Anxiety (Chronic) Chronic systolic (congestive) heart failure (Chronic) Renal colic (Acute) HLD (hyperlipidemia) (Chronic) Amaurosis fugax of right eye (Chronic) H/O mechanical aortic valve replacement (Chronic) s/p [facility] valve and conduit size 27 along with coronary reimplantation 07/2014 S/P cholecystectomy (Chronic) S/P AAA repair (Chronic) "07/15/2014 REPAIR AORTA WITH CARDIOPULMONARY [place]PASS [place] Tib[place] [facility] [place] aortic dissection with resultant repeat surgery on 05/27/2015 for arch repair." History of ERCP (Chronic) H/O exploratory laparotomy (Chronic) Anticoagulated on Coumadin (Acute) Aortic dissection (Acute) Per Clarence Hernandez PA-C progress note from 04/08/18 " Type 1 aortic dissection, 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 3.Status post emergent aortic valve and root replacement with [facility] mechanical valve and conduit size 27 along with coronary reimplantation. 4.Post discharge course complicated by cardiac tamponade requiring left thoracotomy, pericardial window on 07/29/14. 5.Patient status post 05/29/2015 redo sternotomy, left carotid subclavian bypass, right axillary cannulation with an 8 mm graft, arch replacement with a 30 mm branched Dacron graft, ligation of left subclavian artery, arch debranching with individual anastomoses to the right subclavian, right carotid, and left carotid arteries." Left sided chest pain (Acute) Mid back pain (Acute) Urinary tract infection with hematuria (Acute) Medical History (Updated 05/26/24 @ 16:41 by FELA Garcia) History of aortic dissection Atypical chest pain Gastroenteritis Generalized weakness Flu-like symptoms Acute chest pain LBBB (left bundle branch block) Congenital bicuspid aortic valve Chest pain Surgical History H/O mechanical aortic valve replacement Family History Mother Alive and well Father Alive and well Grandfather (Maternal) Coronary heart disease T2DM (type 2 diabetes mellitus) Grandmother (Maternal) T2DM (type 2 diabetes mellitus) Coronary heart disease Other No family history of kidney disease Social History Smoking Status: Never smoker Cigarettes Per Day: 1; Second Hand Exposure: No; Do You Dip or Chew Tobacco: No; Hx Alcohol Use: No Hx Substance Use: No Preferred Language: Argentine Communication Ability: Effective Submersible Pilot Required: No Beliefs That Will Affect Care: None marital status: Single Current Living Situation: Family Current Living Situation Comment: Lives with Dad Feels Safe at Home: Yes Assistive Devices: None Physical Exam Vital Signs Vital Signs - 24 hr 05/26/24 08:17 05/26/24 08:32 05/26/24 08:32 Temperature 36.5 C Temperature Source Temporal Artery Scan Pulse Rate 96 H Pulse Rate [Apical] Pulse Rhythm Respiratory Rate 20 16 Respiratory Effort / Characteristics Non-Labored Spontaneous Non-Labored Respiratory Depth Normal Normal Blood Pressure 111/67 128/58 L Blood Pressure [Right Arm] Blood Pressure Mean 81 75 Blood Pressure Mean [Right Arm] Pulse Oximetry 97 Oxygen Delivery Method Room Air Room Air Sepsis Recent Fever Within 48 Hours No Sepsis New/Unexplained Change in Mental Status No Sepsis Action Taken by Nursing No Action Required 05/26/24 08:32 05/26/24 08:36 05/26/24 08:36 Temperature Temperature Source Pulse Rate 89 96 H Pulse Rate [Apical] Pulse Rhythm Respiratory Rate 21 Respiratory Effort / Characteristics Respiratory Depth Blood Pressure 128/58 L Blood Pressure [Right Arm] Blood Pressure Mean 75 Blood Pressure Mean [Right Arm] Pulse Oximetry Oxygen Delivery Method Sepsis Recent Fever Within 48 Hours Sepsis New/Unexplained Change in Mental Status Sepsis Action Taken by Nursing 05/26/24 08:39 05/26/24 08:45 05/26/24 08:45 Temperature Temperature Source Pulse Rate 98 H Pulse Rate [Apical] Pulse Rhythm Respiratory Rate 23 Respiratory Effort / Characteristics Respiratory Depth Blood Pressure 117/55 L 117/55 L Blood Pressure [Right Arm] Blood Pressure Mean 72 72 Blood Pressure Mean [Right Arm] Pulse Oximetry Oxygen Delivery Method Sepsis Recent Fever Within 48 Hours Sepsis New/Unexplained Change in Mental Status Sepsis Action Taken by Nursing 05/26/24 08:55 05/26/24 09:00 05/26/24 09:01 Temperature Temperature Source Pulse Rate 93 H 91 H Pulse Rate [Apical] Pulse Rhythm Regular Respiratory Rate 22 14 Respiratory Effort / Characteristics Respiratory Depth Blood Pressure 122/51 L Blood Pressure [Right Arm] Blood Pressure Mean 82 Blood Pressure Mean [Right Arm] Pulse Oximetry 98 83 L Oxygen Delivery Method Room Air Sepsis Recent Fever Within 48 Hours Sepsis New/Unexplained Change in Mental Status Sepsis Action Taken by Nursing 05/26/24 09:30 05/26/24 09:48 05/26/24 10:00 Temperature Temperature Source Pulse Rate 79 Pulse Rate [Apical] Pulse Rhythm Respiratory Rate 28 H Respiratory Effort / Characteristics Respiratory Depth Blood Pressure 112/47 L 114/75 Blood Pressure [Right Arm] Blood Pressure Mean 67 105 Blood Pressure Mean [Right Arm] Pulse Oximetry Oxygen Delivery Method Sepsis Recent Fever Within 48 Hours Sepsis New/Unexplained Change in Mental Status Sepsis Action Taken by Nursing 05/26/24 10:00 05/26/24 10:00 05/26/24 10:03 Temperature Temperature Source Pulse Rate 73 Pulse Rate [Apical] 75 Pulse Rhythm Respiratory Rate 24 20 Respiratory Effort / Characteristics Non-Labored Spontaneous Respiratory Depth Normal Blood Pressure 114/75 Blood Pressure [Right Arm] 114/75 Blood Pressure Mean 105 Blood Pressure Mean [Right Arm] 88 Pulse Oximetry 95 Oxygen Delivery Method Room Air Sepsis Recent Fever Within 48 Hours Sepsis New/Unexplained Change in Mental Status Sepsis Action Taken by Nursing 05/26/24 10:36 05/26/24 11:00 05/26/24 11:30 Temperature Temperature Source Pulse Rate 68 73 73 Pulse Rate [Apical] Pulse Rhythm Respiratory Rate 32 H 24 22 Respiratory Effort / Characteristics Respiratory Depth Blood Pressure Blood Pressure [Right Arm] Blood Pressure Mean Blood Pressure Mean [Right Arm] Pulse Oximetry Oxygen Delivery Method Sepsis Recent Fever Within 48 Hours Sepsis New/Unexplained Change in Mental Status Sepsis Action Taken by Nursing 05/26/24 11:30 05/26/24 11:48 05/26/24 12:01 Temperature Temperature Source Pulse Rate 80 Pulse Rate [Apical] Pulse Rhythm Respiratory Rate 15 Respiratory Effort / Characteristics Respiratory Depth Blood Pressure 161/73 H 158/91 H Blood Pressure [Right Arm] Blood Pressure Mean 110 94 Blood Pressure Mean [Right Arm] Pulse Oximetry Oxygen Delivery Method Sepsis Recent Fever Within 48 Hours Sepsis New/Unexplained Change in Mental Status Sepsis Action Taken by Nursing 05/26/24 12:01 05/26/24 12:01 05/26/24 12:01 Temperature Temperature Source Pulse Rate Pulse Rate [Apical] Pulse Rhythm Respiratory Rate Respiratory Effort / Characteristics Respiratory Depth Blood Pressure 158/91 H 158/91 H 158/91 H Blood Pressure [Right Arm] Blood Pressure Mean 94 94 94 Blood Pressure Mean [Right Arm] Pulse Oximetry Oxygen Delivery Method Sepsis Recent Fever Within 48 Hours Sepsis New/Unexplained Change in Mental Status Sepsis Action Taken by Nursing 05/26/24 12:01 05/26/24 12:03 Temperature Temperature Source Pulse Rate 66 Pulse Rate [Apical] Pulse Rhythm Respiratory Rate 29 H Respiratory Effort / Characteristics Respiratory Depth Blood Pressure 158/91 H Blood Pressure [Right Arm] Blood Pressure Mean 94 Blood Pressure Mean [Right Arm] Pulse Oximetry Oxygen Delivery Method Sepsis Recent Fever Within 48 Hours Sepsis New/Unexplained Change in Mental Status Sepsis Action Taken by Nursing VITALS: Vitals are noted on the nurse's note and reviewed by myself. Vital signs stable. GENERAL: 38-year-old male, in no acute distress, nondiaphoretic, obese. SKIN: Multiple areas of open skin on the patient's face. No open areas present on the remainder of the body. Ecchymosis present to the right lower gluteal region. BLE pitting edema 2+. HEAD: Normocephalic atraumatic. EARS: External auditory canals clear, tympanic membranes pearly fontana without erythema or effusion bilaterally. EYES: Pupils equal round and reactive to light and accommodation. Conjunctivae without injection, sclerae without icterus. Extraocular movements intact. MOUTH: Mucous membranes moist. Tonsils are not enlarged. Pharynx without erythema or exudate. Uvula midline. Airway patent. Tongue does not deviate. NECK: Supple without nuchal rigidity. No lymphadenopathy. No thyromegaly. Cervical spine is nontender. No JVD. HEART: Regular rate and rhythm without murmurs gallops or rubs. LUNGS: Clear to auscultation bilaterally without wheezes, rales or rhonchi. No retractions or accessory muscle use. ABDOMEN: Positive bowel sounds x 4. Soft, TTP diffuse low abdomen. Singh sign negative. No guarding or rebound tenderness. MUSCULOSKELETAL: No muscle atrophy, erythema, or edema noted. Limited ROM lumbar spine with TTP. Normal gait. Strength 5/5 throughout. NEURO: Patient was alert and oriented to person place and time. No focal neurological deficits. Course Administered Medications Acetaminophen (Acetaminophen 500 Mg Tab) 1,000 mg PO Q8H [facility] Stop: 06/25/24 15:14 Last Admin: 05/26/24 15:16 Dose: 1,000 mg Documented By: LUIS Sodium Chloride (Nss) 1,000 mls @ 100 mls/hr IV .Q10H VIRGEN Stop: 05/27/24 00:48 Last Admin: 05/26/24 15:16 Dose: 100 mls/hr Documented By: LUIS Discontinued Medications Alprazolam (Alprazolam 0.25 Mg Tablet) 0.25 mg PO ONCE ONE Stop: 05/26/24 12:24 Last Admin: 05/26/24 12:39 Dose: 0.25 mg Documented By: BALTA Cyclobenzaprine HCl (Cyclobenzaprine Hcl 10 Mg Tab) 10 mg PO NOW STA Stop: 05/26/24 10:40 Last Admin: 05/26/24 10:49 Dose: 10 mg Documented By: BALTA Gadobutrol (Gadobutrol 65ml Vial) 12.5 ml IV ONCE ONE Stop: 05/26/24 13:32 Last Admin: 05/26/24 13:32 Dose: 12.5 ml Documented By: MARY(2) Hydromorphone HCl (Hydromorphone Inj 0.5 Mg/0.5 Ml Syr) 0.5 mg IV NOW STA Stop: 05/26/24 12:24 Last Admin: 05/26/24 12:39 Dose: 0.5 mg Documented By: BALTA Acetaminophen (Ofirmev) 1,000 mg in 100 mls @ 400 mls/hr IV NOW STA Stop: 05/26/24 09:04 Last Infusion: 05/26/24 09:13 Dose: Infused Documented By: Admin: 05/26/24 08:58 Dose: 400 mls/hr Documented By: BALTA Ceftriaxone Sodium (Rocephin) 2,000 mg in 50 mls @ 100 mls/hr IV NOW STA Stop: 05/26/24 11:57 Last Infusion: 05/26/24 12:44 Dose: Infused Documented By: Admin: 05/26/24 12:09 Dose: 100 mls/hr Documented By: BALTA Pantoprazole Sodium 40 mg/ (Syringe) 10 mls @ 5 mls/min IV NOW ONE Stop: 05/26/24 12:13 Last Admin: 05/26/24 12:39 Dose: 5 mls/min Documented By: BALTA Piperacillin Sod/Tazobactam Sod (Zosyn) 4.5 gm in 100 mls @ 200 mls/hr IV NOW ONE Stop: 05/26/24 13:14 Last Infusion: 05/26/24 13:09 Dose: Infused Documented By: Admin: 05/26/24 12:38 Dose: 200 mls/hr Documented By: BALTA Vancomycin HCl 2,750 mg/ (Sodium Chloride) 555 mls @ 200 mls/hr IV NOW ONE Stop: 05/26/24 15:31 Last Admin: 05/26/24 14:28 Dose: 200 mls/hr Documented By: C[place] Ioversol (Optiray 320 100ml) 94 ml IV ONCE ONE Stop: 05/26/24 09:04 Last Admin: 05/26/24 09:03 Dose: 94 ml Documented By: NADEEM Metoprolol Tartrate (Metoprolol Tartrate 25 Mg Tab) 75 mg PO NOW ONE Stop: 05/26/24 12:30 Last Admin: 05/26/24 12:39 Dose: 75 mg Documented By: BALTA Medical Decision Making Laboratory Data 05/26/24 08:50 05/26/24 08:50 Lab Results 05/26/24 05/26/24 Range/Units 08:50 09:00 WBC 6.18 (4.8-10.8) K/ul RBC 3.79 L (4.70-6.10) M/uL Hgb 8.8 L (14.0-18.0) g/dl POC Hgb 9.5 L (14.0-18.0) g/dl Hct 29.6 L (42.0-52.0) % POC Hct 28 L (42-52) % MCV 78.1 L (80.0-100.0) fL MCH 23.2 L (25.0-34.0) pg MCHC 29.7 L (32.0-36.0) g/dL RDW Std Deviation 46.3 (36.4-46.3) fL RDW Coeff of Levon 16.4 H (11.5-14.5) % Plt Count 286 (130-400) K/uL MPV 10.8 (9.4-12.4) fL Immature Gran % (Auto) 0.5 % Neut % (Auto) 78.2 % Lymph % (Auto) 12.6 % Dauphin % (Auto) 8.3 % Eos % (Auto) 0.2 % Baso % (Auto) 0.2 % Neut # (Auto) 4.84 (1.40-6.50) K/uL Lymph # (Auto) 0.78 L (1.20-3.40) K/uL Da[place]hin # (Auto) 0.51 (0.11-0.59) K/uL Eos # (Auto) 0.01 (0.00-0.50) K/uL Baso # (Auto) 0.01 (0.00-0.20) K/uL Immature Gran # (Auto) 0.03 (0.01-0.20) K/uL PT 20.9 H (9.0-12.0) Seconds INR 2.1 H (0.9-1.1) APTT 37 H (21-31) Seconds PTT Ratio 1.4 POC Sodium 134 L (135-144) mmol/L Sodium 132 L (136-145) mmol/L POC Potassium 3.9 (3.3-5.0) mmol/L Potassium 3.9 (3.5-5.1) mmol/L POC Chloride 97 L (101-112) mmol/L Chloride 99 (98-107) mmol/L Carbon Dioxide 27 (21-32) mmol/L POC Total CO2 23 L (24-31) mmol/L Anion Gap 6 (3-11) POC Anion Gap 19.0 (16-25) mmol/L POC BUN 12 (7-18) mg/dl BUN 14 (6-23) mg/dl Creatinine 0.79 (0.6-1.4) mg/dl POC Creatinine 0.9 (0.6-1.3) mg/dl Est Cr Clr Drug Dosing 177.8 ml/min Est GFR ( Amer) 133.0 ml/min Est GFR (Non-Af Amer) 114.7 ml/min BUN/Creatinine Ratio 17.7 (10-20) Glucose 92 (70-99(Fasting)) mg/dl POC Glucose (other) 91 (70-99) mg/dl Calcium 8.5 L (8.6-10.3) mg/dl POC Ioniz Calcium Jose 1.10 L (1.12-1.32) mmol/l Iron 21 L (35-175) mcg/dl Transferrin 187 L (200-360) mg/dl Ferritin 85.1 (8-388) ng/ml Total Bilirubin 0.9 (0.2-1.0) mg/dl AST 19 (13-39) U/L ALT 12 (7-52) U/L Alkaline Phosphatase 92 (34-104) U/L Troponin I High Sens 13.9 (0-20) pg/ml B-Natriuretic Peptide 285 H (0-100) pg/ml Total Protein 7.6 (6.0-8.3) gm/dl Albumin 2.9 L (3.4-5.0) gm/dl Globulin 4.7 H (2.5-4.0) gm/dl Albumin/Globulin Ratio 0.6 L (0.9-2) Vitamin B12 1351 H (180-914) pg/ml Folate 20.26 (>5.38) ng/ml Imaging Data Radiologist's Impression: Abdomen/Pelvis CT 05/26/24 08:45 CT abd pelvis IV con only, CT lumbar spine w con CLINICAL HISTORY: Trauma TECHNIQUE: Helical axial images of the abdomen and pelvis were obtained and displayed. Automated dose lowering techniques and/or adjustment according to patient size were utilized for this exam. Dedicated images of the lumbar spine were obtained. This exam was performed with intravenous contrast. CT DOSE: 3959.07 mGy.cm COMPARISON: Comparison is made to CT abdomen pelvis 04/20/2021 FINDINGS: Lower chest: Cardiomegaly is partially visualized. Liver: Focal irregularity in the right lobe of the liver is unchanged from prior exam which may represent prior scarring. Gallbladder and biliary tree: Patient is status post cholecystectomy. No intra- or extrahepatic biliary ductal dilation. Pancreas: Unremarkable, no focal lesions. Spleen: Unremarkable. Adrenals: Unremarkable. Kidneys and ureters: Unremarkable. Bladder: Unremarkable. Reproductive organs: Unremarkable. Bowel: Heidy-en-Y gastric bypass is seen. Lymph nodes Retroperitoneal: Subcentimeter lymph nodes are noted. Pelvic: Unremarkable. Mesenteric: Subcentimeter lymph nodes are noted. Peritoneum: Normal. Vessels: Chronic aortic dissection is unchanged from prior exam. Abdominal wall: Unremarkable. Bones: Degenerative changes in the visualized spine. No acute abnormalities and in particular no evidence of acute fracture is seen. IMPRESSION: 1. No evidence of acute abnormality and in particular no evidence of acute fracture. 2. Chronic aortic dissection is unchanged. 3. Status post cholecystomy. 4. Additional findings as above. ACT 112: Negative or not required by law. Electronically signed by: Jadon Hernandez M.D. 05/26/2024 9:[address] 05/26/24 08:45 CT cervical spine wo con CLINICAL HISTORY: 38 years-old Male with Trauma. Acute neck pain status post fall COMPARISON: Head CT of same day, CT cervical spine 04/25/2022 TECHNIQUE: Multiple axial CT images of the cervical spine were obtained without contrast. A dose lowering technique was utilized adhering to the principles of ALARA. FINDINGS: This study is mildly compromised by artifact which affects visualization of the mid to lower cervical spine. Mild multilevel degenerative changes are present. Alignment of the cervical spine is anatomic. Vertebral body heights are maintained. No acute cervical spine fracture or subluxation is present. There is no prevertebral edema. Facet joints are intact. The cervical soft tissues appear unremarkable. Dental caries with periapical cyst noted within the left mandible. Median sternotomy. The visualized lung apices appear clear. IMPRESSION: No acute cervical spine fracture or subluxation identified. ACT 112: Negative or not required by law. The above report was generated using voice recognition software. It may contain grammatical, syntax or spelling errors. Electronically signed by: Celestine Delgado M.D. 05/26/2024 9:[address] 05/26/24 08:[address] WITH CONTRAST HISTORY: Acute chest and upper back pain status post trauma Trauma TECHNIQUE: Multiaxial CT images of the chest and thoracic spine were performed following the IV administration of 94 cc of Optiray. A dose lowering technique was utilized adhering to the principles of ALARA. COMPARISON: CT chest 09/08/2023 FINDINGS: CT CHEST: Type A thoracic aortic dissection redemonstrated with prior median sternotomy and prosthetic aortic valve. Postoperative changes of the thoracic aortic arch and proximal great vessels appears unchanged. Both the true and false lumens are patent. Heart is mildly enlarged. No pulmonary emboli identified. No pneumothorax, pleural effusion, airspace consolidation or pulmonary edema. Mild dependent subsegmental bibasilar atelectasis. Unremarkable soft tissues. No acute fracture identified. Cholecystectomy. Splenomegaly. Postoperative changes of the stomach and anterior abdominal wall. CT THORACIC SPINE: No acute thoracic spine fracture or subluxation identified. Multilevel intervertebral disc space narrowing, spondylitic spurring and facet arthrosis. No endplate erosions or destructive bone lesions. IMPRESSION: 1. No acute posttraumatic intrathoracic abnormality. 2. No acute fracture or pneumothorax identified. 3. Again seen is a Type A thoracic aortic dissection with postsurgical change as above. The postoperative appearance is likely unchanged from the 09/08/2023 examination. ACT 112: Negative or not required by law. Electronically signed by: Celestine Delgado M.D. 05/26/2024 10:[address] 05/26/24 08:45 CT head/brain wo con CLINICAL HISTORY: Trauma Technique: Contiguous axial CT images of the head were acquired from the base of the skull to the vertex without intravenous contrast administration. Images were viewed in brain, subdural and bone windows. Automated dose lowering techniques and/or adjustment according to patient size were utilized for this exam. Comparison: None available at the time of this dictation. Findings: The ventricles, basal cisterns, and cerebral sulci are normal. There is no acute intracranial hemorrhage or evidence of acute territorial infarction. Neither mass effect, shift of the midline structures, nor abnormal extra-axial fluid collections are shown. Imaged portions of the paranasal sinuses and mastoid air cells are clear. The orbits appear normal. There are no acute fractures of the calvaria or scalp swelling. Impression: No acute intracranial hemorrhage, no evidence of acute territorial infarction or other acute intracranial disease process. ACT 112: Negative or not required by law. Electronically signed by: Jadon Hernandez M.D. 05/26/2024 9:[address] 05/26/24 08:49 CT abd pelvis IV con only, CT lumbar spine w con CLINICAL HISTORY: Trauma TECHNIQUE: Helical axial images of the abdomen and pelvis were obtained and displayed. Automated dose lowering techniques and/or adjustment according to patient size were utilized for this exam. Dedicated images of the lumbar spine were obtained. This exam was performed with intravenous contrast. CT DOSE: 3959.07 mGy.cm COMPARISON: Comparison is made to CT abdomen pelvis 04/20/2021 FINDINGS: Lower chest: Cardiomegaly is partially visualized. Liver: Focal irregularity in the right lobe of the liver is unchanged from prior exam which may represent prior scarring. Gallbladder and biliary tree: Patient is status post cholecystectomy. No intra- or extrahepatic biliary ductal dilation. Pancreas: Unremarkable, no focal lesions. Spleen: Unremarkable. Adrenals: Unremarkable. Kidneys and ureters: Unremarkable. Bladder: Unremarkable. Reproductive organs: Unremarkable. Bowel: Heidy-en-Y gastric bypass is seen. Lymph nodes Retroperitoneal: Subcentimeter lymph nodes are noted. Pelvic: Unremarkable. Mesenteric: Subcentimeter lymph nodes are noted. Peritoneum: Normal. Vessels: Chronic aortic dissection is unchanged from prior exam. Abdominal wall: Unremarkable. Bones: Degenerative changes in the visualized spine. No acute abnormalities and in particular no evidence of acute fracture is seen. IMPRESSION: 1. No evidence of acute abnormality and in particular no evidence of acute fracture. 2. Chronic aortic dissection is unchanged. 3. Status post cholecystomy. 4. Additional findings as above. ACT 112: Negative or not required by law. Electronically signed by: Jadon Hernandez M.D. 05/26/2024 9:[address] 05/26/24 08:[address] WITH CONTRAST HISTORY: Acute chest and upper back pain status post trauma Trauma TECHNIQUE: Multiaxial CT images of the chest and thoracic spine were performed following the IV administration of 94 cc of Optiray. A dose lowering technique was utilized adhering to the principles of ALARA. COMPARISON: CT chest 09/08/2023 FINDINGS: CT CHEST: Type A thoracic aortic dissection redemonstrated with prior median sternotomy and prosthetic aortic valve. Postoperative changes of the thoracic aortic arch and proximal great vessels appears unchanged. Both the true and false lumens are patent. Heart is mildly enlarged. No pulmonary emboli identified. No pneumothorax, pleural effusion, airspace consolidation or pulmonary edema. Mild dependent subsegmental bibasilar atelectasis. Unremarkable soft tissues. No acute fracture identified. Cholecystectomy. Splenomegaly. Postoperative changes of the stomach and anterior abdominal wall. CT THORACIC SPINE: No acute thoracic spine fracture or subluxation identified. Multilevel intervertebral disc space narrowing, spondylitic spurring and facet arthrosis. No endplate erosions or destructive bone lesions. IMPRESSION: 1. No acute posttraumatic intrathoracic abnormality. 2. No acute fracture or pneumothorax identified. 3. Again seen is a Type A thoracic aortic dissection with postsurgical change as above. The postoperative appearance is likely unchanged from the 09/08/2023 examination. ACT 112: Negative or not required by law. Electronically signed by: Celestine Delgado M.D. 05/26/2024 10:[address] 05/26/24 11:[address] DOSE: HISTORY: Right hip pain. r/o hematoma TECHNIQUE: Multiaxial CT images of the right hip were performed and reformatted in the sagittal and coronal plane without the use of contrast. A dose lowering technique was utilized adhering to the principles of ALARA. COMPARISON: None. FINDINGS: No acute fracture or dislocation within the right hip. The patient has pelvic bones are intact. Soft tissues are unremarkable. No evidence for a soft tissue hematoma. IMPRESSION: No fracture or dislocation within the right hip. ACT 112: Negative or not required by law. Electronically signed by: Bert Schaffer M.D. 05/26/2024 12:05 PM Lumbar Spine MRI 05/26/24 11:57 MR lumbar spine wo/w con CLINICAL HISTORY: 38 years-old Male with back pain. Acute low back pain status post fall COMPARISON: Lumbar spine CT of same day TECHNIQUE: Multiplanar, multi sequence MRI of the lumbar spine was performed without intravenous contrast. FINDINGS: Conus medullaris terminates at the T11-T12 level. There is normal signal within the imaged thoracic spinal cord and within the cauda equina. Distended urinary bladder. Trace ascites/presacral edema. There is moderate to severe discogenic degeneration at L5-S1 with vacuum disc phenomenon trace fluid within the disc space. There is moderate marrow and adjacent deep tissue edema and enhancement involving the L4-L5 facets with facet effusions. No acute fracture or subluxation. T12-L1: Mild to moderate intervertebral disc space narrowing with anterior bridging osteophytosis and small circumferential annular disc bulge. Mild facet arthrosis. No central canal or neural foraminal stenosis. L1-L2: Mild spondylotic spurring and facet arthrosis. No central canal or neural foraminal stenosis. L2-L3: Mild spondylotic spurring and facet arthrosis. Tiny posterior annular disc bulging. No central canal or neural foraminal stenosis. L3-L4: Disc desiccation. Mild intervertebral disc space narrowing and spondylotic spurring with tiny posterior annular disc bulge. Ligamentum flavum thickening with moderate facet arthrosis. Central canal is patent. Minimal inferior foraminal narrowing bilaterally. L4-L5: Disc desiccation. Mild intervertebral disc space narrowing and spondylotic spurring with tiny posterior annular disc bulge. Ligamentum flavum thickening with moderate to severe facet arthrosis. Edema and enhancement involves the right facet. Central canal is patent. Mild to moderate right with mild left foraminal narrowing. 1.3 cm synovial cyst posterior to the right facet joint. L5-S1: Moderate to severe intervertebral disc space narrowing. Spondylotic spurring with circumferential disc osteophyte and central disc protrusion measuring 1.5 cm transversely. Moderate facet arthrosis. Central canal is patent. At least moderate narrowing of the left lateral recess. Moderate left and small to moderate right foraminal narrowing. IMPRESSION: 1. No acute fracture or subluxation. 2. Degenerative changes as above, most pronounced at L4-L5 and L5-S1. Edema and enhancement involving the L4-L5 facets on the right, likely degenerative/reactive. 3. Trace pelvic ascites. ACT 112: Negative or not required by law. The above report was generated using voice recognition software. It may contain grammatical, syntax or spelling errors. Electronically signed by: Celestine Delgado M.D. 05/26/2024 2:32 PM MDM Narrative The patient is a 38-year-old male who arrives to the emergency department for the above-stated complaint. Upon examination the patient has significant pain from a mechanical fall that occurred over a week and a half ago. He reports he uses warfarin for mechanical valve, however he states he denies head strike. Due to the patient's examination with pain from the head to the hips, a watkins scan was performed. All CT imaging was negative for acute injury. Lab work was obtained which showed a drop in hemoglobin from 12.0 to 8.8 from December until today. The patient denies rectal bleeding or hematuria. CMP is unremarkable, troponin is negative, PT/INR is therapeutic. BNP was elevated, consistent with the hx of HFpEF. The patient takes torsemide PRN. EKG shows NSR with LBBB, consistent with his previous EKG in 09/2023. The patient was provided IV Tylenol, as well as oral cyclobenzaprine for pain control. An ambulatory trial was performed which was unsuccessful according to nursing staff. I spoke with the case management to facilitate contact with the hospitalist for admission, due to ambulatory dysfunction, and what appears to be symptomatic anemia. Dr. Woodruff from the [facility] hospitalist group agreed to accept the patient under his care, and requested a CT of the right hip to evaluate for a hematoma. After speaking with Dr. Woodruff, the patient's urinalysis returned showing positive signs of infection. Dr. Woodruff was notfied and requested blood cultures, and 2G of IV Rocephin. All requested orders were placed and will be followed by admitting. Please refer to Dr. Woodruff's documentation for further workup and patient care. Continuous child monitor: Order was placed for continuous child monitor. Patient was placed on the child monitor. Patient was noted to be in NSR at an initial rate of 89 bpm. Impression & Plan Bilateral edema of lower extremity, Volume overload, Chronic heart failure with preserved ejection fraction, Anemia, Ambulatory dysfunction, Fall Discharge Plan Visit Data Chief Complaint: Fall Stated Complaint: FALL A WEEK AGO, PAIN ALL OVER ED Provider: Yusuf Hurt ED Midlevel Provider: Violette White Discharge Problem: Bilateral edema of lower extremity, Volume overload, Chronic heart failure with preserved ejection fraction, Anemia, Ambulatory dysfunction, Fall Patient Disposition: Admitted As Inpatient Discharge Instructions Interventions: ED Discharge Assessment Last Done: 05/26/24 14:15 Discharge Problem: Volume overload Qualifiers: Hypervolemia type: unspecified Qualified Code(s): E87.70 - Fluid overload, unspecified Anemia Qualifiers: Anemia type: unspecified type Qualified Code(s): D64.9 - Anemia, unspecified Fall Qualifiers: Encounter type: initial encounter Qualified Code(s): W19.XXXA - Unspecified fall, initial encounter
[2024-05-26] MEDS: ACETAMINOPHEN 1,000 MG/100 ML VIAL IV STA (08:58)
[2024-05-26] MEDS: OPTIRAY 320 100ml IV ONE (09:03)
[2024-05-26 09:14] LABS: iSTAT Creatinine 0.9 mg/dl (0.6-1.3); iSTAT Hemoglobin 9.5 g/dl (14.0-18.0); iSTAT Ionized Calcium 1.1 mmol/l (1.12-1.32); iSTAT Potassium 3.9 mmol/L (3.3-5.0)
[2024-05-26 09:23] LABS: Albumin Globulin Ratio 0.6 (0.9-2); Albumin Level 2.9 gm/dl (3.4-5.0); BUN Creatinine Ratio 17.7 (10-20); Bilirubin,Total 0.9 mg/dl (0.2-1.0); Calcium 8.5 mg/dl (8.6-10.3); Creatinine Clr Calc Pharmacy 177.8 ml/min; Est GFR (Non-African American) 114.7 ml/min; Globulin 4.7 gm/dl (2.5-4.0); Potassium 3.9 mmol/L (3.5-5.1); Total Protein 7.6 gm/dl (6.0-8.3)
[2024-05-26 09:29] LABS: Basophils # (auto) 0.01 K/uL (0.00-0.20); Basophils % (auto) 0.2 %; Eosinophils # (auto) 0.01 K/uL (0.00-0.50); Eosinophils % (auto) 0.2 %; Hematocrit (blood only) 29.6 % (42.0-52.0); Hemoglobin 8.8 g/dl (14.0-18.0); Immature Granulocytes # (auto) 0.03 K/uL (0.01-0.20); Immature Granulocytes % (auto) 0.5 %; Lymphocytes # (auto) 0.78 K/uL (1.20-3.40); Lymphocytes % (auto) 12.6 %; Mean Corpuscular Hemoglobin 23.2 pg (25.0-34.0); Mean Corpuscular Hgb Conc 29.7 g/dL (32.0-36.0); Mean Corpuscular Volume 78.1 fL (80.0-100.0); Mean Platelet Volume 10.8 fL (9.4-12.4); Monocytes # (auto) 0.51 K/uL (0.11-0.59); Monocytes % (auto) 8.3 %; Neutrophils # (auto) 4.84 K/uL (1.40-6.50); Neutrophils % (auto) 78.2 %; Platelet Count 286 K/uL (130-400); RDW Coefficient of Variation 16.4 % (11.5-14.5); RDW Standard Deviation 46.3 fL (36.4-46.3); Red Blood Count 3.79 M/uL (4.70-6.10); Troponin I High Sensitivity 13.9 pg/ml (0-20); White Blood Count 6.18 K/ul (4.8-10.8)
[2024-05-26 09:35] LABS: INR 2.1 (0.9-1.1); Partial Thromboplastin Ratio 1.4; Partial Thromboplastin Time 37 Seconds (21-31); Prothrombin Time 20.9 Seconds (9.0-12.0)
--- NOTE | 2024-05-26 09:35 | CT Scan Report ---
CT head/brain wo con CLINICAL HISTORY: Trauma Technique: Contiguous axial CT images of the head were acquired from the base of the skull to the doron micki without intravenous contrast administration. Images were viewed [facility] . Automated dose lowering techniques and/or adjustment according to patient size were utilized for this exam. Comparison: None available at the time of this dictation. Findings: The ventricles, basal cisterns, and cerebral sulci are normal. There is no acute intracranial hemorrh age or evidence of acute territorial infarction. Neither mass effect, shift of the midline structures , nor abnormal extra-axial fluid collections are shown. Imaged portions of the paranasal sinuses and mastoid air cells are clear. The orbits appear normal. There are no acute fractures of the calvaria or scalp swelling. Impression: No acute intracranial hemorrhage, no evidence of acute territorial infarction or other acute intracra nial disease process. ACT 112: Negative or not required by law. Electronically signed by: Jadon Hernandez M.D. 05/26/2024 9:34 AM
--- NOTE | 2024-05-26 09:48 | CT Scan Report ---
CT abd pelvis IV con only, CT lumbar spine w con CLINICAL HISTORY: Trauma TECHNIQUE: Helical axial images of the abdomen and pelvis were obtained and displayed. Automated dose lowering techniques and/or adjustment according to patient size were utilized for this exam. Dedicat ed images of the lumbar spine were obtained. This exam was performed with intravenous contrast. CT DOSE: 3959.07 mGy.cm COMPARISON: Comparison is made to CT abdomen pelvis 04/20/2021 FINDINGS: Lower chest: Cardiomegaly is partially visualized. Liver: Focal irregularity in the right lobe of the liver is unchanged from prior exam which may repre sent prior scarring. Gallbladder and biliary tree: Patient is status post cholecystectomy. No intra- or extrahepatic bilia ry ductal dilation. Pancreas: Unremarkable, no focal lesions. Spleen: Unremarkable. Adrenals: Unremarkable. Kidneys and ureters: Unremarkable. Bladder: Unremarkable. Reproductive organs: Unremarkable. Bowel: Heidy-en-Y gastric bypass is seen. Lymph nodes Retroperitoneal: Subcentimeter lymph nodes are noted. Pelvic: Unremarkable. Mesenteric: Subcentimeter lymph nodes are noted. Peritoneum: Normal. Vessels: Chronic aortic dissection is unchanged from prior exam. Abdominal wall: Unremarkable. Bones: Degenerative changes in the visualized spine. No acute abnormalities and in particular no evid ence of acute fracture is seen. IMPRESSION: 1. No evidence of acute abnormality and in particular no evidence of acute fracture. 2. Chronic aortic dissection is unchanged. 3. Status post cholecystomy. 4. Additional findings as above. ACT 112: Negative or not required by law. Electronically signed by: Jadon Hernandez M.D. 05/26/2024 9:45 AM
--- NOTE | 2024-05-26 10:00 | CT Scan Report ---
CT cervical spine wo con CLINICAL HISTORY: 38 years-old Male with Trauma. Acute neck pain status post fall COMPARISON: Head CT of same day, CT cervical spine 04/25/2022 TECHNIQUE: Multiple axial CT images of the cervical spine were obtained without contrast. A dose low ering technique was utilized adhering to the principles of ALARA. FINDINGS: This study is mildly compromised by artifact which affects visualization of the mid to lowe r cervical spine. Mild multilevel degenerative changes are present. Alignment of the cervical spine i s anatomic. Vertebral body heights are maintained. No acute cervical spine fracture or subluxation is present. There is no prevertebral edema. Facet joints are intact. The cervical soft tissues appear unremarkable. Dental caries with periapical cyst noted within the le ft mandible. Median sternotomy. The visualized lung apices appear clear. IMPRESSION: No acute cervical spine fracture or subluxation identified. ACT 112: Negative or not required by law. The above report was generated using voice recognition software. It may contain grammatical, syntax o r spelling errors. Electronically signed by: Celestine Delgado M.D. 05/26/2024 9:59 AM
--- NOTE | 2024-05-26 10:17 | CT Scan Report ---
CHEST CT WITH CONTRAST HISTORY: Acute chest and upper back pain status post trauma Trauma TECHNIQUE: Multiaxial CT images of the chest and thoracic spine were performed following the IV admin istration of 94 cc of Optiray. A dose lowering technique was utilized adhering to the principles of ALARA. COMPARISON: CT chest 09/08/2023 FINDINGS: CT CHEST: Type A thoracic aortic dissection redemonstrated with prior median sternotomy and prostheti c aortic valve. Postoperative changes of the thoracic aortic arch and proximal great vessels appears unchanged. Both the true and false lumens are patent. Heart is mildly enlarged. No pulmonary emboli i dentified. No pneumothorax, pleural effusion, airspace consolidation or pulmonary edema. Mild dependent subsegme ntal bibasilar atelectasis. Unremarkable soft tissues. No acute fracture identified. Cholecystectomy. Splenomegaly. Postoperative changes of the stomach and anterior abdominal wall. CT THORACIC SPINE: No acute thoracic spine fracture or subluxation identified. Multilevel interverteb ral disc space narrowing, spondylitic spurring and facet arthrosis. No endplate erosions or destructi ve bone lesions. IMPRESSION: 1. No acute posttraumatic intrathoracic abnormality. 2. No acute fracture or pneumothorax identified. 3. Again seen is a Type A thoracic aortic dissection with postsurgical change as above. The postopera tive appearance is likely unchanged from the 09/08/2023 examination. ACT 112: Negative or not required by law. Electronically signed by: Celestine Delgado M.D. 05/26/2024 10:15 AM
[2024-05-26] MEDS: CYCLOBENZAPRINE HCL 10 MG TAB PO STA (10:49)
[2024-05-26 11:23] LABS: Appearance Urine Turbid (Clear); Bacteria Urine Automated 4+ (None Seen); Bilirubin Urine Negative (Negative); Blood Urine Negative (Negative); Calcium Oxalate Crystals Urine Present (None Prsent); Cast Urine Automated 0-2 /lpf (0-2); Color Urine Yellow; Epithelial Cell Urine Auto 0-2 /hpf (0-2); Glucose Urine UA Negative (Negative); Ketones Urine 1+ (Negative); Leukocyte Esterase Urine 2+ (Negative); Nitrite Urine Negative (Negative); Protein Urine 1+ (Negative); Specific Gravity Urine 1.022 (1.000-1.030); Urobilinogen Urine Positive (Negative); WBC Urine Automated 21-50 /hpf (0-5); pH Urine 7.5 (4.5-7.5)
--- NOTE | 2024-05-26 11:50 | History & Physical Report ---
Date of Service May 26, 2024 Assessment & Plan (1) Back pain: (2) Fall: Plan: Patient is 38-year-old male with PMH type I aortic dissection 07/2014 secondary to marked aortopathy s/p emergent aortic valve and root replacement with mechanical valve, with post discharge complication of cardiac tamponade requiring thoracotomy, pericardial window 07/29/2014, chronic diastolic heart failure, LBBB, HTN, dyslipidemia, obesity s/p gastric bypass, anxiety, depression, history DDD and others listed below presented to ER with c/o back pain after mechanical fall 1.5 weeks ago and weakness x 3 days with chills, sweats CT Head: No acute intracranial hemorrhage, no evidence of acute territorial infarction or other acute intracranial disease process. CT C-Spine: No acute fracture CT Chest & Thoracic spine: No acute posttraumatic intrathoracic abnormality.No acute fracture or pneumothorax identified. Again seen is a Type A thoracic aortic dissection with postsurgical change as above. The postoperative appearance is likely unchanged from the 09/08/[address] lumbar spine: No evidence of acute abnormality and in particular no evidence of acute fracture. CT abd/pelvis:No evidence of acute abnormality and in particular no evidence of acute fracture. Chronic aortic dissection is unchanged. Status post cholecystomy. CT hip:No fracture or dislocation within the right hip. In ER given Flexeril and IV Tylenol with reported some improvement of back pain Obtain MRI spine to r/o DDD Scheduled Tylenol, oxycodone, Dilaudid as needed pain Flexeril as needed muscle spasm Ortho spine consult (3) UTI (urinary tract infection): Plan: Weakness, chills, sweats x 3 days. Dark urine. Denies dysuria, hematuria UA: 4+bacteria, 2+leuk esterase, 21-50 WBC, 6-10 RBC In ER given Rocephin Will broaden to Zosyn and Vancomycin as patient appears ill and concern for sepsis Urine culture pending Blood culture pending IVF Admit telemetry CBC in AM (4) Anemia: Plan: Denies CP, SOB, melena, hematochezia Hgb: 8.8. Baseline Hgb: 12 Obtain Hemoccult stool Anemia labs pending Protonix twice daily Avoid NSAIDs May need to consider GI consult if positive Hemoccult (5) History of aortic dissection: (6) S/P AVR (aortic valve replacement): (7) Chronic thoracic aortic dissection: (8) Anticoagulated on warfarin: (9) Chronic heart failure with preserved ejection fraction: Plan: PMH type I aortic dissection 07/2014 secondary to marked aortopathy s/p emergent aortic valve and root replacement with mechanical valve, with post discharge complication of cardiac tamponade requiring thoracotomy, pericardial window 07/29/2014 Chronic thoracic aortic dissection Chronically anticoagulated on warfarin Chronic thoracic aortic dissection appears stable/unchanged per CT abdomen and pelvis INR: 2.1 Continue metoprolol, Plavix, Coumadin, atorvastatin Hold torsemide currently as appears on dry side. Reassess volume status Monitor H&H INR in a.m. (10) HTN (hypertension): Plan: Continue metoprolol, losartan (11) HLD (hyperlipidemia): Plan: Continue atorvastatin (12) Anxiety and depression: Plan: Continue duloxetine (13) History of gastric bypass: (14) Obesity: Plan: Anemia workup as above PPI DVT Prophylaxis Anticoagulated on warfarin, therapeutic INR currently Conditional Code, Wants CPR, defibrillation, medications but does not want intubation or mechanical ventillation as per discussion with pt Follows with Dr Ceasar Lockhart for routine care Pt was seen and care coordinated with Dr Woodruff. See addendum I spent a total of 79 minutes reviewing notes, outpatient records, labs, medication, coordinating, documenting and providing care for this patient excluding time spent in the performance of separately billed services. History of Present Illness Primary Care Provider: Brian Guido MD Patient is 38-year-old male with PMH type I aortic dissection 07/2014 secondary to marked aortopathy s/p emergent aortic valve and root replacement with mechanical valve, with post discharge complication of cardiac tamponade requiring thoracotomy, pericardial window 07/29/2014, chronic diastolic heart failure, LBBB, HTN, dyslipidemia, obesity s/p gastric bypass, anxiety, depression, history DDD and others listed below presented to ER with c/o back pain and weakness. History obtained from patient and outpatient chart review. Patient states 1.5 weeks ago he missed a step and fell backwards onto buttocks and back approximately 5 feet. Initially was walking and ambulating ok. Noted bruising to right buttock which is slowing resolving. C/O having right lower back pain. Past 3 days with increased pain with reported spasms across his back. He states pain radiates up back and down right hip and leg and describes as stabbing type pain. He has been taking Tylenol without much relief. He states past 2 days has taken 600mg ibuprofen twice daily. Feels bilateral leg weakness and generalized weakness the past 3 days. Past 3 days having chills, sweats. Hasn't measured temperature. Decreased appetite and oral intake past 3 days. States past several days feeling like not urinating much and difficult to urinate. Today he states he is urinating but is dark in coloration. Denies saddle paresthesias. Denies N/V/D/C, LEIVA, dizziness, syncope, vision changes, ne ck pain, CP, SOB, palpitations, cough, sore throat, rhinorrhea, abdominal pain, increased extremity edema, rashes, hematuria, dysuria, melena, hematochezia. Allergies Allergy/AdvReac Type Severity Reaction Status Date / Time No Known Allergies Allergy Verified 05/26/24 09:34 Home Medications Medication Instructions Recorded Confirmed Type clopidogrel 75 mg tablet 75 mg PO QAM 11/12/18 05/26/24 History duloxetine 60 mg capsule,delayed 60 mg PO DAILY 11/12/18 05/26/24 History release warfarin 5 mg tablet See Rx Instructions .Route .COMPLEX 12/06/19 05/26/24 History duloxetine 30 mg capsule,delayed 30 mg PO DAILY 03/11/21 05/26/24 History release acetaminophen 500 mg tablet 1,000 mg PO Q6H PRN Pain 04/08/21 05/26/24 History (Tylenol Extra Strength) multivitamin 1 tab PO DAILY 04/20/21 05/26/24 History atorvastatin 10 mg tablet 10 mg PO HS 05/26/24 05/26/24 History cholecalciferol (vitamin D3) 125 125 mcg PO DAILY 05/26/24 05/26/24 History mcg (5,000 unit) tablet (Vitamin D3) losartan 50 mg tablet 50 mg PO BID 05/26/24 05/26/24 History metoprolol tartrate 25 mg tablet 75 mg PO BID 05/26/24 05/26/24 History Past Med/Surg History Problem List Obesity History of gastric bypass Anxiety and depression HTN (hypertension) Chronic heart failure with preserved ejection fraction Anemia Bilateral edema of lower extremity (Acute) Volume overload (Acute) Fluid retention UTI (urinary tract infection) Acute heart failure with preserved ejection fraction (HFpEF) Bilateral flank pain (Acute) Chest tightness (Acute) Fluid overload (Acute) Intractable abdominal pain (Acute) Abdominal wall hernia (Acute) Chronic thoracic aortic dissection (Acute) Anticoagulated on warfarin (Acute) S/P AVR (aortic valve replacement) The patient will need antibiotic prophylaxis for any surgical procedures. I would hold his warfarin in anticipation of surgery. Once his INR however, normalizes he will require a bridge. I think we can discontinue his Plavix today and restart after surgery to reduce the risk of bleeding. DVT prophylaxis History of aortic dissection Prolonged Q-T interval on ECG DDD (degenerative disc disease), lumbar (Chronic) Anxiety (Chronic) Chronic systolic (congestive) heart failure (Chronic) Renal colic (Acute) HLD (hyperlipidemia) (Chronic) Amaurosis fugax of right eye (Chronic) H/O mechanical aortic valve replacement (Chronic) s/p [employer]. Judes mech valve and conduit size 27 along with coronary reimplantation 07/2014 S/P cholecystectomy (Chronic) S/P AAA repair (Chronic) "07/15/2014 REPAIR AORTA WITH CARDIOPULMONARY BYPASS performed by Timbo Heredia MD at [facility] [place] Persistent aortic dissection with resultant repeat surgery on 05/27/2015 for arch repair." History of ERCP (Chronic) H/O exploratory laparotomy (Chronic) Anticoagulated on Coumadin (Acute) Aortic dissection (Acute) Per Clarence Hernandez PA-C progress note from 04/08/18 " Type 1 aortic dissection, 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 3.Status post emergent aortic valve and root replacement with [employer] Brant's mechanical valve and conduit size 27 along with coronary reimplantation. 4.Post discharge course complicated by cardiac tamponade requiring left thoracotomy, pericardial window on 07/29/14. 5.Patient status post 05/29/2015 redo sternotomy, left carotid subclavian bypass, right axillary cannulation with an 8 mm graft, arch replacement with a 30 mm branched Dacron graft, ligation of left subclavian artery, arch debranching with individual anastomoses to the right subclavian, right carotid, and left carotid arteries." Left sided chest pain (Acute) Mid back pain (Acute) Urinary tract infection with hematuria (Acute) Medical History History of aortic dissection Atypical chest pain Gastroenteritis Generalized weakness Flu-like symptoms Acute chest pain LBBB (left bundle branch block) Congenital bicuspid aortic valve Chest pain Surgical History H/O mechanical aortic valve replacement Family History Mother Alive and well Father Alive and well Grandfather (Maternal) Coronary heart disease T2DM (type 2 diabetes mellitus) Grandmother (Maternal) T2DM (type 2 diabetes mellitus) Coronary heart disease Other No family history of kidney disease Social History Smoking Status: Former smoker Cigarettes Per Day: 1; Smoking End Date: 9 years ago; Second Hand Exposure: No; Do You Dip or Chew Tobacco: No; Tobacco Cessation Education Requested by Patient: No Hx Alcohol Use: No Hx Substance Use: No Preferred Language: Wolof Communication Ability: Effective Custodial Manager Required: No Beliefs That Will Affect Care: None marital status: Single Current Living Situation: Other Current Living Situation Comment: father lives with patient Other Information That Helps Us Care for You: No Feels Safe at Home: Yes Safety Concerns: Feels Safe At This Time Assistive Devices: None Review of Systems Review of Systems: All systems reviewed & are unremarkable except as noted in HPI & below Physical Exam Physical Exam: PE Per Dr Woodruff Results & Data Results & Data Vital Signs (Past 12 Hours) Vital Signs Temp Pulse Pulse Resp BP BP Pulse Ox 05/26/24 10:03 75 20 114/75 95 05/26/24 08:55 93 H 22 98 05/26/24 08:36 89 05/26/24 08:32 16 05/26/24 08:17 36.5 C 96 H 20 111/67 97 O2 Del Method 05/26/24 10:03 Room Air 05/26/24 08:55 Room Air 05/26/24 08:36 05/26/24 08:32 Room Air 05/26/24 08:17 Room Air Laboratory Results Short CBC 05/26/24 Range/Units 08:50 WBC 6.18 (4.8-10.8) K/ul Hgb 8.8 L (14.0-18.0) g/dl Hct 29.6 L (42.0-52.0) % Plt Count 286 (130-400) K/uL BMP 05/26/24 08:50 Sodium 132 L Potassium 3.9 Chloride 99 Carbon Dioxide 27 BUN 14 Creatinine 0.79 Glucose 92 Calcium 8.5 L Liver Function 05/26/24 Range/Units 08:50 Total Bilirubin 0.9 (0.2-1.0) mg/dl AST 19 (13-39) U/L ALT 12 (7-52) U/L Alkaline Phosphatase 92 (34-104) U/L Albumin 2.9 L (3.4-5.0) gm/dl Urine 05/26/24 Range/Units Unknown Urine Color Yellow Urine Appearance Turbid A (Clear) Urine pH 7.5 (4.5-7.5) Ur Specific [place] 1.022 (1.000-1.030) Urine Protein 1+ H (Negative) Urine Glucose (UA) Negative (Negative) Diagnostic Findings Abdomen/Pelvis CT 05/26/24 08:45 CT abd pelvis IV con only, CT lumbar spine w con CLINICAL HISTORY: Trauma TECHNIQUE: Helical axial images of the abdomen and pelvis were obtained and displayed. Automated dose lowering techniques and/or adjustment according to patient size were utilized for this exam. Dedicated images of the lumbar spine were obtained. This exam was performed with intravenous contrast. CT DOSE: 3959.07 mGy.cm COMPARISON: Comparison is made to CT abdomen pelvis 04/20/2021 FINDINGS: Lower chest: Cardiomegaly is partially visualized. Liver: Focal irregularity in the right lobe of the liver is unchanged from prior exam which may represent prior scarring. Gallbladder and biliary tree: Patient is status post cholecystectomy. No intra- or extrahepatic biliary ductal dilation. Pancreas: Unremarkable, no focal lesions. Spleen: Unremarkable. Adrenals: Unremarkable. Kidneys and ureters: Unremarkable. Bladder: Unremarkable. Reproductive organs: Unremarkable. Bowel: Heidy-en-Y gastric bypass is seen. Lymph nodes Retroperitoneal: Subcentimeter lymph nodes are noted. Pelvic: Unremarkable. Mesenteric: Subcentimeter lymph nodes are noted. Peritoneum: Normal. Vessels: Chronic aortic dissection is unchanged from prior exam. Abdominal wall: Unremarkable. Bones: Degenerative changes in the visualized spine. No acute abnormalities and in particular no evidence of acute fracture is seen. IMPRESSION: 1. No evidence of acute abnormality and in particular no evidence of acute f racture. 2. Chronic aortic dissection is unchanged. 3. Status post cholecystomy. 4. Additional findings as above. ACT 112: Negative or not required by law. Electronically signed by: Jadon Hernandez M.D. 05/26/2024 9:[address] 05/26/24 08:45 CT cervical spine wo con CLINICAL HISTORY: 38 years-old Male with Trauma. Acute neck pain status post fall COMPARISON: Head CT of same day, CT cervical spine 04/25/2022 TECHNIQUE: Multiple axial CT images of the cervical spine were obtained without contrast. A dose lowering technique was utilized adhering to the principles of ALARA. FINDINGS: This study is mildly compromised by artifact which affects visualization of the mid to lower cervical spine. Mild multilevel degenerative changes are present. Alignment of the cervical spine is anatomic. Vertebral body heights are maintained. No acute cervical spine fracture or subluxation is present. There is no prevertebral edema. Facet joints are intact. The cervical soft tissues appear unremarkable. Dental caries with periapical cyst noted within the left mandible. Median sternotomy. The visualized lung apices appear clear. IMPRESSION: No acute cervical spine fracture or subluxation identified. ACT 112: Negative or not required by law. The above report was generated using voice recognition software. It may contain grammatical, syntax or spelling errors. Electronically signed by: Celestine Delgado M.D. 05/26/2024 9:[address] 05/26/24 08:[address] WITH CONTRAST HISTORY: Acute chest and upper back pain status post trauma Trauma TECHNIQUE: Multiaxial CT images of the chest and thoracic spine were performed following the IV administration of 94 cc of Optiray. A dose lowering technique was utilized adhering to the principles of ALARA. COMPARISON: CT chest 09/08/2023 FINDINGS: CT CHEST: Type A thoracic aortic dissection redemonstrated with prior median sternotomy and prosthetic aortic valve. Postoperative changes of the thoracic aortic arch and proximal great vessels appears unchanged. Both the true and false lumens are patent. Heart is mildly enlarged. No pulmonary emboli identified. No pneumothorax, pleural effusion, airspace consolidation or pulmonary edema. Mild dependent subsegmental bibasilar atelectasis. Unremarkable soft tissues. No acute fracture identified. Cholecystectomy. Splenomegaly. Postoperative changes of the stomach and anterior abdominal wall. CT THORACIC SPINE: No acute thoracic spine fracture or subluxation identified. Multilevel intervertebral disc space narrowing, spondylitic spurring and facet arthrosis. No endplate erosions or destructive bone lesions. IMPRESSION: 1. No acute posttraumatic intrathoracic abnormality. 2. No acute fracture or pneumothorax identified. 3. Again seen is a Type A thoracic aortic dissection with postsurgical change as above. The postoperative appearance is likely unchanged from the 09/08/2023 examination. ACT 112: Negative or not required by law. Electronically signed by: Celestine Delgado M.D. 05/26/2024 10:[address] 05/26/24 08:45 CT head/brain wo con CLINICAL HISTORY: Trauma Technique: Contiguous axial CT images of the head were acquired from the base of the skull to the vertex without intravenous contrast administration. Images were viewed in brain, subdural and bone windows. Automated dose lowering techniques and/or adjustment according to patient size were utilized for this exam. Comparison: None available at the time of this dictation. Findings: The ventricles, basal cisterns, and cerebral sulci are normal. There is no acute intracranial hemorrhage or evidence of acute territorial infarction. Neither mass effect, shift of the midline structures, nor abnormal extra-axial fluid collections are shown. Imaged portions of the paranasal sinuses and mastoid air cells are clear. The orbits appear normal. There are no acute fractures of the calvaria or scalp swelling. Impression: No acute intracranial hemorrhage, no evidence of acute territorial infarction or other acute intracranial disease process. ACT 112: Negative or not required by law. Electronically signed by: Jadon Hernandez M.D. 05/26/2024 9:[address] 05/26/24 08:49 CT abd pelvis IV con only, CT lumbar spine w con CLINICAL HISTORY: Trauma TECHNIQUE: Helical axial images of the abdomen and pelvis were obtained and displayed. Automated dose lowering techniques and/or adjustment according to patient size were utilized for this exam. Dedicated images of the lumbar spine were obtained. This exam was performed with intravenous contrast. CT DOSE: 3959.07 mGy.cm COMPARISON: Comparison is made to CT abdomen pelvis 04/20/2021 FINDINGS: Lower chest: Cardiomegaly is partially visualized. Liver: Focal irregularity in the right lobe of the liver is unchanged from prior exam which may represent prior scarring. Gallbladder and biliary tree: Patient is status post cholecystectomy. No intra- or extrahepatic biliary ductal dilation. Pancreas: Unremarkable, no focal lesions. Spleen: Unremarkable. Adrenals: Unremarkable. Kidneys and ureters: Unremarkable. Bladder: Unremarkable. Reproductive organs: Unremarkable. Bowel: Heidy-en-Y gastric bypass is seen. Lymph nodes Retroperitoneal: Subcentimeter lymph nodes are noted. Pelvic: Unremarkable. Mesenteric: Subcentimeter lymph nodes are noted. Peritoneum: Normal. Vessels: Chronic aortic dissection is unchanged from prior exam. Abdominal wall: Unremarkable. Bones: Degenerative changes in the visualized spine. No acute abnormalities and in particular no evidence of acute fracture is seen. IMPRESSION: 1. No evidence of acute abnormality and in particular no evidence of acute fracture. 2. Chronic aortic dissection is unchanged. 3. Status post cholecystomy. 4. Additional findings as above. ACT 112: Negative or not required by law. Electronically signed by: Jadon Hernandez M.D. 05/26/2024 9:[address] 05/26/24 08:[address] WITH CONTRAST HISTORY: Acute chest and upper back pain status post trauma Trauma TECHNIQUE: Multiaxial CT images of the chest and thoracic spine were performed following the IV administration of 94 cc of Optiray. A dose lowering technique was utilized adhering to the principles of ALARA. COMPARISON: CT chest 09/08/2023 FINDINGS: CT CHEST: Type A thoracic aortic dissection redemonstrated with prior median sternotomy and prosthetic aortic valve. Postoperative changes of the thoracic aortic arch and proximal great vessels appears unchanged. Both the true and false lumens are patent. Heart is mildly enlarged. No pulmonary emboli identified. No pneumothorax, pleural effusion, airspace consolidation or pulmonary edema. Mild dependent subsegmental bibasilar atelectasis. Unremarkable soft tissues. No acute fracture identified. Cholecystectomy. Splenomegaly. Postoperative changes of the stomach and anterior abdominal wall. CT THORACIC SPINE: No acute thoracic spine fracture or subluxation identified. Multilevel intervertebral disc space narrowing, spondylitic spurring and facet arthrosis. No endplate erosions or destructive bone lesions. IMPRESSION: 1. No acute posttraumatic intrathoracic abnormality. 2. No acute fracture or pneumothorax identified. 3. Again seen is a Type A thoracic aortic dissection with postsurgical change as above. The postoperative appearance is likely unchanged from the 09/08/2023 examination. ACT 112: Negative or not required by law. Electronically signed by: Celestine Delgado M.D. 05/26/2024 10:[address] 05/26/24 11:[address] DOSE: HISTORY: Right hip pain. r/o hematoma TECHNIQUE: Multiaxial CT images of the right hip were performed and reformatted in the sagittal and coronal plane without the use of contrast. A dose lowering technique was utilized adhering to the principles of ALARA. COMPARISON: None. FINDINGS: No acute fracture or dislocation within the right hip. The patient has pelvic bones are intact. Soft tissues are unremarkable. No evidence for a soft tissue hematoma. IMPRESSION: No fracture or dislocation within the right hip. ACT 112: Negative or not required by law. Electronically signed by: Bert Schaffer M.D. 05/26/2024 12:05 PM ECG Additional Comments: sinus rhythm, rate 91, LBBB Supervising Physician Co-Signing Physician Notes Patient presented with a fall about 10 days ago; he landed on his tailbone. Patient started to experience lower back pain which radiated down his right thigh and leg. Reports that he has been feeling weaker overall since last 3 days. He reports experiencing fever and chills. He did not measure his temperature at home. He denies cough, chest pain, abdominal pain or urinary urgency and frequency. On physical exam Constitutional: Alert oriented x 3; appears tired. Answering question appropriately. Respiratory: normal respiratory effort, lungs clear to auscultation, no wheeze, rales, rhonchi. Normal insp/exp effort, no accessory muscle use Cardiovascular: Mechanical murmur present, no additional sounds. Chest: normal inspection of chest Abdomen: Soft, nontender. Musculoskeletal: Small area of bruise on his right buttock; resolving. Tenderness on paraspinal muscle on right side. No tenderness on spine. Neurologic: PERRLA, cranial nerves II through XII intact, sensation intact throughout. Bilateral lower extremity4/ 5 Psychiatric: A+Ox3, euthymic affect Assessment/plan Fever Possible UTI Will start him on broad spectrum antibiotic with Vanco and Zosyn Follow-up on blood and urine culture Mechanical fall Sciatica Patient underwent multiple scans including cervical spine, lumbar spine and thoracic spine CT along with chest CT, head CT and abdominal/pelvis CT which did not show any acute finding of trauma. Will obtain lumbar spine with contrast to rule out infection/fracture. Pain management with Tylenol, oxycodone and Dilaudid Muscle relaxant Microcytic anemia Last hemoglobin in December was stable; hemoglobin down trended to 8.8. Possible blood loss from the bruise on right buttock. No active site of bleeding in the scan so far Will obtain fecal occult Start him on Protonix twice daily Obtain iron profile I have reviewed the advanced practitioner's documentation, and I agree with, and take responsibility for the plan of care I spent a total of 45 minutes coordinating, documenting, and providing care for this patient excluding time spent in the performance of separately billed services. All of the aforementioned completed while collaborating with the assigned advanced practitioner for a full treatment plan (1) Back pain Back pain laterality: unspecified Back pain location: low back pain Chronicity: acute Sciatica presence: without sciatica Qualified Code(s): M54.5 - Low back pain
--- NOTE | 2024-05-26 12:07 | CT Scan Report ---
RIGHT HIP CT CT DOSE: HISTORY: Right hip pain. r/o hematoma TECHNIQUE: Multiaxial CT images of the right hip were performed and reformatted in the sagittal and c oronal plane without the use of contrast. A dose lowering technique was utilized adhering to the aviva nciples nurys [place]. COMPARISON: None. FINDINGS: No acute fracture or dislocation within the right hip. The patient has pelvic bones are int act. Soft tissues are unremarkable. No evidence for a soft tissue hematoma. IMPRESSION: No fracture or dislocation within the right hip. ACT 112: Negative or not required by law. Electronically signed by: Bert Schaffer M.D. 05/26/2024 12:05 PM
[2024-05-26] MEDS: cefTRIAXone SODIUM 2,000 MG/50 ML BAG IV STA (12:09)
[2024-05-26] MEDS ORDERED: VANCOMYCIN CONSULT ACTIVE PRN ×2 (12:12→14:49)
[2024-05-26] MEDS: PIPERACILLIN/TAZOBACTAM 4.5 GM/100 ML BAG IV ONE (12:38)
[2024-05-26] MEDS: METOPROLOL TARTRATE 25 MG TAB PO ONE (12:39)
[2024-05-26] MEDS: HYDROmorphone INJ 0.5 MG/0.5 ML SYR IV STA (12:39)
[2024-05-26] MEDS: PANTOprazole 40 MG in SYRINGE 0 ML IV ONE (12:39)
[2024-05-26] MEDS: ALPRAZolam 0.25 MG TABLET PO ONE (12:39)
[2024-05-26 13:13] LABS: Ferritin 85.1 ng/ml (8-388)
[2024-05-26 13:19] LABS: Folate (Folic Acid),Ser orPlas 20.26 ng/ml (>5.38)
[2024-05-26] MEDS: GADOBUTROL 65ML VIAL IV ONE (13:32)
[2024-05-26] MEDS: VANCOMYCIN HCL 2,750 MG in SODIUM CHLORIDE 0.9% 500 ML IV ONE (14:28)
--- NOTE | 2024-05-26 14:34 | Magnetic Resonance Report ---
MR lumbar spine wo/w con CLINICAL HISTORY: 38 years-old Male with back pain. Acute low back pain status post fall COMPARISON: Lumbar spine CT of same day TECHNIQUE: Multiplanar, multi sequence MRI of the lumbar spine was performed without intravenous cont rast. FINDINGS: Conus medullaris terminates at the T11-T12 level. There is normal signal within the imaged thoracic s inna cord and within the cauda equina. Distended urinary bladder. Trace ascites/presacral edema. The re is moderate to severe discogenic degeneration at L5-S1 with vacuum disc phenomenon trace fluid wit hin the disc space. There is moderate marrow and adjacent deep tissue edema and enhancement involving the L4-L5 facets with facet effusions. No acute fracture or subluxation. T12-L1: Mild to moderate intervertebral disc space narrowing with anterior bridging osteophytosis an d small circumferential annular disc bulge. Mild facet arthrosis. No central canal or neural foramina l stenosis. L1-L2: Mild spondylotic spurring and facet arthrosis. No central canal or neural foraminal stenosis. L2-L3: Mild spondylotic spurring and facet arthrosis. Tiny posterior annular disc bulging. No centra l canal or neural foraminal stenosis. L3-L4: Disc desiccation. Mild intervertebral disc space narrowing and spondylotic spurring with tiny posterior annular disc bulge. Ligamentum flavum thickening with moderate facet arthrosis. Central ca nal is patent. Minimal inferior foraminal narrowing bilaterally. L4-L5: Disc desiccation. Mild intervertebral disc space narrowing and spondylotic spurring with tiny posterior annular disc bulge. Ligamentum flavum thickening with moderate to severe facet arthrosis. Edema and enhancement involves the right facet. Central canal is patent. Mild to moderate right with mild left foraminal narrowing. 1.3 cm synovial cyst posterior to the right facet joint. L5-S1: Moderate to severe intervertebral disc space narrowing. Spondylotic spurring with circumferen tial disc osteophyte and central disc protrusion measuring 1.5 cm transversely. Moderate facet arthro sis. Central canal is patent. At least moderate narrowing of the left lateral recess. Moderate left a nd small to moderate right foraminal narrowing. IMPRESSION: 1. No acute fracture or subluxation. 2. Degenerative changes as above, most pronounced at L4-L5 and L5-S1. Edema and enhancement involving the L4-L5 facets on the right, likely degenerative/reactive. 3. Trace pelvic ascites. ACT 112: Negative or not required by law. The above report was generated using voice recognition software. It may contain grammatical, syntax o r spelling errors. Electronically signed by: Celestine Delgado M.D. 05/26/2024 2:32 PM
[2024-05-26] MEDS ORDERED: POLYETHYLENE (MIRALAX) 17 GM PACK PO PRN (14:49)
[2024-05-26] MEDS ORDERED: WARFARIN SOD 5 MG TAB PO SCH (14:49)
[2024-05-26] MEDS ORDERED: VANCOMYCIN HCL 2,000 MG in SODIUM CHLORIDE 0.9% 500 ML IV SCH (14:49)
--- NOTE | 2024-05-26 15:00 | Pharmacy Report ---
Pharmacy PK ABX Note - Date of Service May 26, 2024 - Assessment and Plan Assessment 38 year old M receiving empiric vancomycin and Zosyn for concern of urosepsis. Patient reports lower back pain after falling backwards onto buttocks and back about 1.5 weeks ago. Patient with complicated PMH including hx aortic dissection (2013), mechanical valve, CHF, obesity, and hypertension. UA positive for bacteria, leukocyte esterase, and WBC. Pertinent microbiologic data includes: blood cultures x 2, urine culture pending. Renal function appears to be at/near baseline. Day # 1 of antimicrobial therapy. Plan Vancomycin * Loading dose: 2750 mg IV x 1 * Maintenance dose: 1250 mg IV every 8 hours * Regimen is predicted to achieve target AUC/JEN of 400-600 mg/L.hr * Will order vancomycin level if therapy is to be continued beyond 48 hours Zosyn * 4.5 g IV q8h - appropriately dosed for indication/renal function Pharmacy will continue to follow and will adjust dose/frequency as necessary. Thank you. Pharmacy has transitioned to AUC monitoring for vancomycin. AUC/JEN is the preferred PK/PD target and is associated with decreased risk of nephrotoxicity compared to traditional trough targets.
[2024-05-26] MEDS: ACETAMINOPHEN 500 MG TAB PO SCH (15:16)
[2024-05-26] MEDS: SODIUM CHLORIDE 0.9% 1,000 ML IV SCH (15:16)
[2024-05-26] MEDS: WARFARIN SOD 5 MG TAB PO SCH (16:32)
[2024-05-26] MEDS: PIPERACILLIN/TAZOBACTAM 4.5 GM in DEXTROSE 5% MINI-B 100 ML IV SCH (16:33)
--- OUTSIDE RECORDS SUMMARY | 2024-05-26 16:46 | External Medical Summary | Summary of Care ---
Author Name Unknown Organization [facility] Address [address] [place] [address] Phone [phone] Care Team Providers Care Sign Painter Apprentice Name Role Phone Leonila Raygoza MD Primary Care Prov ider Reason for Visit * Reason Comments eRx-Medication Refill Encounter Details Date Type Department Care Team (Late st Contact Info) Description 04/17/2024 Refill Cardiology, [facility] [address] [place] [address] Adelaide Brian, MARY [address] [place] [address] HTN, goal below 130/80*; Palpitations Allergies No known active allergiesdocumented as of this encounter (statuses as of 04/23/2024) Medications Medication Sig Dispensed Refills Start Date End Date Status Warfarin Sodium 5 MG Oral Tablet (Coumadin)Indicatio ns:Status post mechanical aortic valve replacement,Anticoa gulation management encounter,MCFP current use of 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 Or take as instructed by the [facility] 270 Tablet 3 06/23/2023 Active Acetaminophen 500 MG Oral Tablet (Tylenol)Indication s:Morbid obesity with BMI of 50.0-59.9, adult (HCC),Pre-operative examination take 2 tabs by mouth every 8 hours pain after surgery for 3 days 18 Tablet 07/30/2023 Active Ondansetron HCl 4 MG Oral TabletIndications:M orbid obesity with BMI of 50.0-59.9, adult ([facility]),Pre-operative examination 1 tablet by mouth every 8 hours as needed for nausea after surgery. 30 Tablet 1 07/30/2023 Active Losartan Potassium 50 MG Oral Tablet (Cozaar) Take 1 Tablet by mouth in the morning and 1 Tablet before bedtime. 180 Tablet 3 11/17/2023 Active DULoxetine HCl 60 MG Oral Capsule Delayed Release Particles (Cymbalta)Indicatio ns:Anxiety disorder due to known physiological condition,DDD (degenerative disc disease), lumbar,Generalized anxiety disorder One daily with 30 mg for dose of 90 mg 90 Capsule 2 12/22/2023 Active Omeprazole 20 MG Oral Capsule Delayed Release (PriLOSEC)Indicatio ns:Gastroesophageal reflux disease with esophagitis without hemorrhage Take 1 cap by mouth daily for 90 days after surgery. 90 Capsule 01/06/2024 Active DULoxetine HCl 30 MG Oral Capsule Delayed Release Particles (Cymbalta)Indicatio ns:Anxiety disorder due to known physiological condition TAKE ONE CAPSULE BY MOUTH EVERY DAY 90 Capsule 2 01/20/2024 Active Clopidogrel Bisulfate 75 MG Oral Tablet (pLAVix)Indications :H/O aortic dissection TAKE ONE TABLET BY MOUTH EVERY MORNING 90 Tablet 02/23/2024 Active Atorvastatin Calcium 10 MG Oral Tablet (Lipitor)Indication s:LBBB (left bundle branch block) TAKE ONE TABLET BY MOUTH AT BEDTIME 90 Tablet 1 03/05/2024 Active Metoprolol Tartrate 25 MG Oral Tablet (Lopressor)Indicati ons:HTN, goal below 130/80,Palpitations Take 3 Tablets by mouth in the morning and 3 Tablets before bedtime. 540 Tablet 3 04/23/2024 Active Torsemide 10 MG Oral Tablet (Demadex) Take 1 Tablet by mouth in the morning. 1 Tablet 10/18/2023 4 Discontinue d(Refill) Metoprolol Tartrate 25 MG Oral Tablet (Lopressor) Take 3 Tablets by mouth in the morning and 3 Tablets before bedtime. 180 Tablet 3 11/17/2023 4 Discontinue d(Refill) Hospital, Clinic, or Other Facility Administered Medication Ordered Dose Route Frequency Start Date End Date Status vitamin b-12 (Cyanocobalamin) inj 1,000 mcgIndications:S/P gastric bypass 1000 mcg IM [id number] 12/16/2023 11/16/2024 Active documented as of this encounter (statuses as of 04/23/2024) Active Problems Problem Noted Date Diagnosed Date Chronic heart failure with preserved ejection fr action 10/15/2023 Congenital bicuspid aortic valve 10/15/2023 Gastroesophageal reflux disease 10/15/2023 TIMMY (generalized anxiety disorder) 10/15/2023 GUILLERMO on CPAP 10/15/2023 Hyperlipidemia 10/15/2023 Left bundle branch block 10/15/2023 H/O mechanical aortic valve replacement 10/15/20 History of aortic dissection 10/15/2023 Hypertension 10/15/2023 S/P gastric bypass 10/14/2023 HFrEF (heart failure with reduced ejection fract ion) 10/14/2023 Pre-operative examination 07/30/2023 FERGUSON RESEARCH OTHER*[id number] 01/20/2023 Morbid obesity 12/20/2021 Diffuse axonal brain injury 04/09/2021 Status post mechanical aortic valve replacement 07/18/2014 Thoracic aortic aneurysm 07/12/2014 DDD (degenerative disc disease), lumbar Overview: mostly L5 documented as of this encounter (statuses as of 04/23/2024) Resolved Problems Problem Noted Date Diagnosed Date Resolved Date GUILLERMO (obstructive sleep apnea) 10/14/2023 01/06/2024 Body mass index (BMI) of 50. 0 to 59.9 in adult 07/16/2021 12/20/2021 Overview: Per Obesity protocol Aortic aneurysm with dissection 03/27/2021 09/26/2021 Incisional hernia, without o bstruction or gangrene 01/07/2020 01/13/2020 LBBB (left bundle branch block) 12/04/2018 01/06/2024 Generalized anxiety disorder 08/14/2017 01/06/2024 Body mass index (BMI) of 40. 0 to 44.9 in adult 08/04/2017 11/20/2018 Overview: Per Obesity protocol #1 History of lumbar laminectom y for spinal cord decompression 01/07/2017 02/07/2017 Dyslipidemia, goal LDL below 100 06/14/2016 01/06/2024 Amaurosis fugax of right eye 05/02/2015 08/14/2017 H/O aortic dissection 04/28/20152023 Biloma 08/15/2014 08/14/2017 Chest pain 07/28/2014 04/17/2017 UTI (urinary tract infection) 07/21/2014 09/07/2014 Aortic aneurysm with dissection 07/16/2014 11/06/2018 Aortic regurgitation 07/12/2014 015 Biloma following surgery 07/05/201402/2019 Cholelithiasis 05/20/2014 07/28/2014 Overview: sonogram Aortic dissection, abdominal 07/28/2014 Acute blood loss anemia 07/2015 Dental caries 11/18/2023 Anxiety disorder 01/06/2024 Morbid obesity with BMI of 45.0-49.9, adult 07/19/2021 Overview: Per Obesity protocol Primary hypertension 024 documented as of this encounter (statuses as of 04/23/2024) Immunizations Name Administration Dates Next Due Haemophilius B (HIB), unspecified 08/13/1988 MMR - Measles/Mumps/Rubella Vaccine 02/09/1992,0 06/11/1988 OPV - Polio Virus Vaccine (Oral) 992,06/11/1988,04/24/1987, 987 TDAP (age 10 and older)(Boostrix) 11/06/2015 documented as of this encounter Social History Tobacco Use Types Packs/Day Years Used Date Smoking Tobacco: Former Cigarettes 1 12 0 04/03/2003 - 04/03/2015 Smokeless Tobacco: Never Alcohol Use Standard Drinks/Week Comments Not Currently 0 (1 standard drink = 0.6 oz pur e alcohol) PHQ-2 Answer Date Recorded PHQ-2 Score 0 01/13/2020 Hunger Vital Sign Answer Date Recorded Within the past 12 months, y ou worried that your food would run out before you got the money to buy more. Never true 01/27/20 24 Within the past 12 months, t he food you bought just didn't last and you didn't have money to get more. Never true 01/27/2024 Sex and Gender Information Value Date Recorded Sex Assigned at Male 05/05/2023 1:53 PM EDT Gender Identity Male 05/05/2023 1:53 PM EDT Sexual Orientation [place] 05/05/2023 1: 53 PM EDT Job Start Date Occupation Industry Not on file Not on file Not on file documented as of this encounter Functional Status Functional Status Response Date of Assess ment Are you deaf or do you have serious difficulty h earing? No 12/29/2019 Are you blind or do you have serious difficulty seeing, even when wearing glasses? No 12/29/2019 Do you have serious difficul ty walking or climbing stairs? (5 years old or older) No 12/29/2019 Do you have difficulty dress ing or bathing? (5 years old or older) No 12/29/2019 Because of a physical, menta l, or emotional condition, do you have difficulty doing errands alone such as visiting a doctor s office or shopping? (15 years old or older) No 12/29/19 20 Cognitive Status Response Date of Assessm ent Because of a physical, menta l, or emotional condition, do you have serious difficulty concentrating, remembering, or making decisions? (5 years old or older) No 12/29/2019 documented as of this encounter Miscellaneous Notes * Telephone Encounter - Rafael Louise DO - 04/23/2024 10:03 AM EDT Signed Prescriptions: Disp Refills Metoprolol Tartrate 25 MG Oral Tablet (Lop*540 Ta*3 Sig: Take 3 Tablets by mouth in the morning and 3 Tablets before bedtime. Authorizing Provider: RAFAEL LOUISE * Telephone Encounter - Taina Lafleur CMA - 04/19/2024 11:18 AM EDTPending Prescriptions: Disp Refills Metoprolol Tartrate 25 MG Oral Tablet (Lop*540 Ta*3 Sig: Take 3 Tablets by mouth in the morning and 3 Tablets before bedtime. * Telephone Encounter - Taina Lafleur CMA - 04/19/2024 11:18 AM EDT Did you pend patient's preferred pharmacy and medication before forwarding?yes Pharmacy: [facility] [address] [place] Pending Prescriptions: Disp Refills Metoprolol Tartrate 25 MG Oral Tablet (Lo*540 Ta*3 Sig: Take 3 Tablets by mouth in the morning and 3 Tablets before bedtime. Last Visit: 09/12/2023 (in office), Visit date not found (telemedicine) Next Visit: 07/30/2024 If no future appointments scheduled, and last appointment is greater than a year ago, please schedule patient for a follow-up appointment Last date the medication was ordered: 11-17-2023 Is this request for a controlled substance?No Urine Drug Screen: Results for orders placed or performed during the hospital encounter of 04/08/21 TOXICOLOGY, URINE SCREEN W/ CONFIRMATION Result Value Amphetamines Screen, U Negative Benzodiazepines Screen, U Negative Cannabinoids Screen, U Negative Cocaine Metabolite Screen, U Negative Hydrocodone Screen, U Positive (A) Methadone Metabolite Screen, U Negative Morphine/Codeine Screen, U Positive (A) Oxycodone Screen, U Negative Narrative Cutoff Concentrations: Drug Level Amphetamines 500 ng/mL Benzodiazepines 100 ng/mL Cannabinoids 50 ng/mL Cocaine Metabolite 150 ng/mL Hydrocodone / Hydromorphone 100 ng/mL Methadone Metabolite 100 ng/mL Morphine / Codeine 300 ng/mL Oxycodone / Oxymorphone 100 ng/mL Screening results are presumptive and can only be used for medical purposes. Positive screening results are reflexed to confirmatory testing. Results for orders placed or performed in visit on 05/19/18 OPIOIDS/BENZO COMPLIANCE MONITORING W/INTERP Result Value COMPLIANCE INTERP (NOTE) URINE DRUG SCREEN RESULT Amphetamine NEGATIVE Barbiturates NEGATIVE Benzodiazepines NEGATIVE Cannabinoids NEGATIVE Cocaine Metabolite NEGATIVE METHADONE METABOLITE NEGATIVE Morphine / Codeine REFER TO CONFIRMATION RESULT (A) OXYCODONE REFER TO CONFIRMATION RESULT (A) COMMENT THE ABOVE SCREENING RESULTS ARE PRESUMPTIVE AND CAN ONLY BE USED FOR MEDICAL PURPOSES. CONFIRMATORY TESTING IS AVAILABLE UPON REQUEST. Cutoff Concentration URINE VALID INTERP NORMAL CREATININE CORRY 278 NITRITE CORRY 24 pH CORRY 5.6 *Note: Due to a large number of results and/or encounters for the requested time period, some results have not been displayed. A complete set of results can be found in Results Review. Patient Phone Numbers Labs: Lab Results Component Value Date/Time CREAT 0.8 10/17/2023 05:08 AM CREAT 0.9 03/08/2020 12:39 PM POTASSIUM 4.7 10/17/2023 05:08 AM POTASSIUM 4.7 01/27/2020 01:29 PM TSH 0.99 01/20/2023 11:01 AM TSH 0.640 05/23/2019 12:00 AM TSH 1.03 04/08/2018 11:41 AM LDLCALC 52 04/10/2023 09:26 AM LDLCALC 143 (H) 11/06/2018 08:33 AM LDLDIRECT 77 10/04/2022 11:10 AM LDLDIRECT NOT APPLICABLE 11/06/2018 08:33 AM ALT 35 01/20/2023 11:01 AM ALT 68 05/18/2017 12:00 AM ALT 51 (H) 08/11/2016 01:45 AM HGBA1C 5.1 01/20/2023 11:01 AM HGBA1C 4.8 05/29/2015 04:00 AM documented in this encounter Plan of Treatment Upcoming Encounters Date Type Department Care Team (Late st Contact Info) Description 05/03/2024 6:45 PM EDT Anticoagulation Centralized Clinical Pharmacy Services, Juliet Urbano [address] [place] [address] [place] [place] [phone] [place] [address] [address] [facility] [place] [address] 06/04/2024 3:50 PM EDT Telemedicine Nutrition & Weight Management, [facility] [address] [place] [address] Dulce Pace RDN [address] [place] [place] [address] 07/13/2024 8:20 AM EDT Office Visit [address] [place] [phone] Leonila Raygoza MD [address] [place] [address] [place] [address] 07/30/2024 8:30 AM EDT Office Visit Cardiology, [facility] [address] [address] Pepe Dupont MD [address] [place] [address] 09/02/2024 2:30 PM EDT Nutrition Services Nutrition & Weight Management, [facility] [address] [place] [address] Dulce Pace RDN [address] [address] 09/02/2024 3:40 PM EDT Office Visit Nutrition & Weight Management, [facility] [place] [address] Misa Katz PA-C [address] [place] [address] 09/17/2024 4:30 PM EST Imaging Radiology [facility] 1st Floor, [place] [address] [place] [address] 09/29/2024 3:00 PM EST Telemedicine Cardiothoracic Surg [facility], [address] [place] [address] Rafael Campbell MD [address] [place] [address] 10/26/2024 10:00 AM EST Telemedicine General Surgery, [place] [address] [place] [address] Yomi Barros PA-C [address], [place] [id number] 01/05/2025 9:00 AM EST Office Visit [address] [phone] Leonila Raygoza MD [address] [place] [address] [place] [id number] Health Maintenance Due Date Last Done Comments Hepatitis B (1 of 3 - 19+ 3-dose series) 2005 Depression Screening 01/12/2021 01/13/2020 COVID-19 Vaccine ( - 2022- season) 2023 Influenza Vaccine (FLU shot) (Season Ended) 2024 GFR 10/17/2024 10/17/2023, 10/03, 10/15/2023, Additional history exists DTaP,Tdap,and Td Vaccines (2 - Td or Tdap) 11/06/2025 11/06/2015 Albumin/Creatinine Ratio 01/20/2026 01/20/2023 Diabetes Screening 10/17/2026 10/17/2023, 1 12/17/2022, 10/15/2023, Additional history exists GARDASIL-HPV IMMUNIZATION SERIES Aged Out No longer eligible based on patient's age to complete this topic MENINGOCOCCAL (MENACTRA/MENVEO) Aged Out No longer eligible based on patient's age to complete this topic Pneumococcal Vaccine: Pediatrics (0 to 5 Years) and At-Risk Patients (6 to 64 Years) Aged Out No longer eligible based on patient's age to complete this topic documented as of this encounter Medical Devices Implanted Type Area Xm1 Tank Driver Device Identifier Shelf Expiration Date Model / Serial / Lot Sut Steel 6 M654g - [id number] Implanted:Qty: 6 on 07/15/2014 at OR [facility] N/A: Chest JNJ : [employer] 05/03/2018 [id number] / / [id number] Graft Gelweave 8x15 [id number] - [id number] Implanted:Qty: 1 on 07/15/2014 at OR [facility] Right: Axilla [employer] : CARDIO SYS 05/03/2019 [id number] / [id number] / [id number] Neligh Ptfe 6x6in X5 - [id number] Implanted:Qty: 1 on 07/15/2014 at OR [facility] BARD : PERIPHERAL [employer]ASCULAR 11/14/2018 [id number] / / [id number] Graft Valved Valsalva 27mm - [id number] Implanted:Qty: 1 on 07/15/2014 at OR [facility] N/A: Aorta [employer] 12/15/2017 [id number] / [id number] / Sut Steel 6 M654g - [id number] Implanted:Qty: 1 on 05/29/2015 by Smith Shelton MD at OR [facility] N/A: Chest JNJ : [employer] 06/02/2019 [id number] / / [id number] Graft Gelweave 8x15 [id number] - [id number] - [id number] Implanted:Qty: 1 on 05/29/2015 by Smith Shelton MD at OR [facility] Right: Axilla [employer] : [employer] 05/02/2020 [id number] / [id number] / [id number] Description:implanted in rig ht axillary Graft Gelweave 8x15 [id number] - [id number] - [id number] Implanted:Qty: 1 on 05/29/2015 by Smith Shelton MD at OR [facility] Left: Carotid [employer] : [employer] 05/02/2020 [id number] / [id number] / [id number] Gelweave Woven Vascular Prosthesis, Branched Arch Graft W/ Radiopaque Markers Implanted:Qty: 1 on 05/29/2015 by Smith Shelton MD at OR [facility] N/A: Aorta [employer] : VASC[employer]K 04/02/2020 [id number] / [id number] / [id number] Description:Diameter: 30/ 8/8 x 10 mm Usable Length: 20 cm +2@15 cm +2@30 cm Sut Steel 6 M654g - [id number] Implanted:Qty: 4 on 05/29/2015 by Smith Shelton MD at OR [facility] N/A: Chest JNJ : [employer] 06/02/2019 M654G / / [id number] Neligh Ptfe 6x6in X5 - [id number] Implanted:Qty: 1 on 05/29/2015 by Smith Shelton MD at OR [facility] N/A: Aorta CR [employer]ARD : PERIPHERAL VASCULAR 12/03/2019 [id number] / / [id number] Description:felt cut to surg lazaro's desired preference Mesh Vicryl 12 X 12 Vkm-L - [id number] Implanted:Qty: 1 on 12/30/2019 by Mihir Calvo MD at OR [facility] N/A: Abdomen JNJ : [employer] 04/02/2024 VKM-L / / [id number] Prolene Mesh - [id number] Implanted:Qty: 1 on 12/30/2019 by Mihir Calvo MD at OR [facility] N/A: Abdomen Materialise [id number] 03/02/2023 [id number] / / [id number] documented as of this encounter Visit Diagnoses Diagnosis HTN, goal below 130/80- Primary Unspecified essential hypertension Palpitations documented in this encounter Advance Directives * Full Code (Latest Code Status on File) Date Activated Date Inactivated Comments 10/14/2023 6:30 PM 10/17/2023 4:50 PM This order reflects the patients wishes and were consensually agreed upon. Question Answer Comments Discussion of Advance Directives occurred with: Patient Does the patient have a Living Will? Yes, not cu rrently available Does the patient have Health Care Power of Film Tests Checker? Yes, not currently available * Full Code Date Activated Date Inactivated Comments 10/14/2023 9:30 AM 10/14/2023 6:30 PM This order reflects the patients wishes and were consensually agreed upon. Question Answer Comments Discussion of Advance Directives occurred with: Patient * Full Code Date Activated Date Inactivated Comments 04/08/2021 4:39 PM 04/09/2021 10:07 PM This order re flects the patients wishes and were consensually agreed upon. * Full Code Date Activated Date Inactivated Comments 12/30/2019 6:18 PM 01/07/2020 5:32 PM This order re flects the patients wishes and were consensually agreed upon. Question Answer Comments Discussion of Advance Directives occurred with: Not Discussed Does the patient have a Living Will? No Does the patient have Health Care Power of Attor luciano? No * Full Code Date Activated Date Inactivated Comments 12/29/2019 7:58 PM 12/30/2019 6:18 PM This order r eflects the patients wishes and were consensually agreed upon. Question Answer Comments Discussion of Advance Directives occurred with: Not Discussed Does the patient have a Living Will? No Does the patient have Health Care Power of Attor luciano? No Care Teams Sign Painter Apprentice Relationship Specialty Start Date End Date Leonila Raygoza MD [address] [place] [address] [place] [address] PCP - General Family Medicine 04/17/24 documented as of this encounter
--- OUTSIDE RECORDS SUMMARY | 2024-05-26 16:46 | External Medical Summary | Summary of Care ---
Author Name Unknown Organization [facility] Address [address] [place] [address] Phone [phone] Care Team Providers Care Record Clerk Name Role Phone Leonila Raygoza MD Primary Care Prov ider Reason for Visit * Reason Comments Appointment Encounter Details Date Type Department Care Team (Late st Contact Info) Description 05/03/2024 6:45 PM EDT Anticoagulation Centralized Clinical Pharmacy Services, Juliet Urbano [address] [place] [address] [place] [phone] [place] [address] Status post mechanical aortic valve replacement*; Pre-operative examination; Morbid obesity (HCC) Allergies No known active allergiesdocumented as of this encounter (statuses as of 05/03/2024) Medications Medication Sig Dispensed Refills Start Date End Date Status Warfarin Sodium 5 MG Oral Tablet (Coumadin)Indication s:Status post mechanical aortic valve replacement,Anticoag ulation management encounter,half-way current use of 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 Or take as instructed by the [facility] 270 Tablet 3 06/23/2023 Active Acetaminophen 500 MG Oral Tablet (Tylenol)Indications :Morbid obesity with BMI of 50.0-59.9, adult (HCC),Pre-operative examination take 2 tabs by mouth every 8 hours pain after surgery for 3 days 18 Tablet 07/30/2023 Active Ondansetron HCl 4 MG Oral TabletIndications:Mo rbid obesity with BMI of 50.0-59.9, adult ([facility]),Pre-operative examination 1 tablet by mouth every 8 hours as needed for nausea after surgery. 30 Tablet 1 07/30/2023 Active Losartan Potassium 50 MG Oral Tablet (Cozaar) Take 1 Tablet by mouth in the morning and 1 Tablet before bedtime. 180 Tablet 3 11/17/2023 Active DULoxetine HCl 60 MG Oral Capsule Delayed Release Particles (Cymbalta)Indication s:Anxiety disorder due to known physiological condition,DDD (degenerative disc disease), lumbar,Generalized anxiety disorder One daily with 30 mg for dose of 90 mg 90 Capsule 2 12/22/2023 Active Omeprazole 20 MG Oral Capsule Delayed Release (PriLOSEC)Indication s:Gastroesophageal reflux disease with esophagitis without hemorrhage Take 1 cap by mouth daily for 90 days after surgery. 90 Capsule 01/06/2024 Active DULoxetine HCl 30 MG Oral Capsule Delayed Release Particles (Cymbalta)Indication s:Anxiety disorder due to known physiological condition TAKE ONE CAPSULE BY MOUTH EVERY DAY 90 Capsule 2 01/20/2024 Active Clopidogrel Bisulfate 75 MG Oral Tablet (pLAVix)Indications: H/O aortic dissection TAKE ONE TABLET BY MOUTH EVERY MORNING 90 Tablet 02/23/2024 Active Atorvastatin Calcium 10 MG Oral Tablet (Lipitor)Indications :LBBB (left bundle branch block) TAKE ONE TABLET BY MOUTH AT BEDTIME 90 Tablet 1 03/05/2024 Active Metoprolol Tartrate 25 MG Oral Tablet (Lopressor)Indicatio ns:HTN, goal below 130/80,Palpitations Take 3 Tablets by mouth in the morning and 3 Tablets before bedtime. 540 Tablet 3 04/23/2024 Active Metoprolol Tartrate 25 MG Oral Tablet (Lopressor) Take 3 Tablets by mouth in the morning and 3 Tablets before bedtime. 540 Tablet 3 04/19/2024 Active Torsemide 10 MG Oral Tablet (Demadex) Take 1 Tablet by mouth daily in the morning. 30 Tablet 1 04/20/2024 Active Hospital, Clinic, or Other Facility Administered Medication Ordered Dose Route Frequency Start Date End Date Status vitamin b-12 (Cyanocobalamin) inj 1,000 mcgIndications:S/P gastric bypass 1000 mcg IM [id number] 12/16/2023 11/16/2024 Active documented as of this encounter (statuses as of 05/03/2024) Active Problems Problem Noted Date Diagnosed Date Chronic heart failure with preserved ejection fr action 10/15/2023 Congenital bicuspid aortic valve 10/15/2023 Gastroesophageal reflux disease 10/15/2023 TIMMY (generalized anxiety disorder) 10/15/2023 GUILLERMO on CPAP 10/15/2023 Hyperlipidemia 10/15/2023 Left bundle branch block 10/15/2023 H/O mechanical aortic valve replacement 10/15/20 23 History of aortic dissection 10/15/2023 Hypertension 10/15/2023 S/P gastric bypass 10/14/2023 HFrEF (heart failure with reduced ejection fract ion) 10/14/2023 Pre-operative examination 07/30/2023 MICHAEL RESEARCH OTHER*[id number] 01/20/2023 Morbid obesity 12/20/2021 Diffuse axonal brain injury 04/09/2021 Status post mechanical aortic valve replacement 07/18/2014 Thoracic aortic aneurysm 07/12/2014 DDD (degenerative disc disease), lumbar Overview: mostly L5 documented as of this encounter (statuses as of 05/03/2024) Resolved Problems Problem Noted Date Diagnosed Date [...] as of this encounter (statuses as of 05/03/2024) Immunizations Name Administration Dates Next Due Haemophilius [...] No 12/29/2019 documented as of this encounter Progress Notes * Aspen Neff paralegal internship - 05/03/2024 8:29 AM EDT Patient Phone Numbers Left message on patients answering machine to schedule [facility] appointment for anticoagulation management. [facility] message sent --no Clinic will follow up again in 4 week(s). [Attempt # N/A] Thank you, Aspen Neff Manager [employer] Centralized Clinical Pharmacy Services ([facility]) [phone] 05/03/2024,8:29 AM documented in this encounter Plan of Treatment Upcoming Encounters Date Type Department Care Team (Late st Contact Info) Description 05/31/2024 6:45 PM EDT Anticoagulation Centralized Clinical Pharmacy Services, Juliet Urbano [address] [place] [address] [place] [address] [facility] [place], [address] [place] [address] 06/04/2024 3:50 PM EDT Telemedicine Nutrition & Weight Management, [facility] [address] [place] [address] Dulce Pace RDN [address] [place] [address] 07/13/2024 8:20 AM EDT Office Visit [address] [place] [phone] Leonila Raygoza MD [address] [place] [address] [place] [address] 07/30/2024 8:30 AM EDT Office Visit Cardiology, [facility] [address] [place] [address] Pepe Dupont MD [address] [place] [address] 09/02/2024 2:30 PM EDT Nutrition Services Nutrition & Weight Management, [facility] [address] [place] [address] Dulce Pace RDN [address] [place] [address] 09/02/2024 3:40 PM EDT Office Visit Nutrition & Weight Management, [facility] [place] [address] Misa Katz PA-C [address] [place] [address] 09/17/2024 4:30 PM EST Imaging [facility] [address] [place] [address] 09/29/2024 3:00 PM EST Telemedicine Cardiothoracic Surg [address] [address] Tulio Campbell MD [address] [place] [address] 10/26/2024 10:00 AM EST Telemedicine General Surgery, [place] [address], [place] [phone] oYmi Barros PA-C [address], [place] [phone] 01/05/2025 9:00 AM EST Office Visit Family [address] [phone] Leonila Raygoza MD [address] [place] [address] [place] [address] Health Maintenance Due Date Last Done Comments Hepatitis B (1 of 3 - 19+ 3-dose series) 2005 Depression Screening 01/12/2021 01/13/2020 COVID-19 Vaccine ( - 2022- season) 2023 Influenza Vaccine (FLU shot) (#1) 2024 GFR 10/17/2024 10/17/2023, 10/03, 10/15/2023, Additional [...] this encounter Medical Devices Implanted Type Area Laboratory Operations Coordinator Device Identifier Shelf Expiration Date Model / Serial / Lot Sut Steel 6 M654g - [id number] Implanted:Qty: 6 on 07/15/2014 [place] [facility]A: Chest JNJ : [employer] 05/03/2018 M654G / / [id number] Graft Gelweave 8x15 [id number] - [id number] Implanted:Qty: 1 on 07/15/2014 at [place] [facility] [place] Right: Axilla [employer] : CARDIO SYS 05/03/2019 [id number] / [id number] / [id number] Broadalbin Ptfe 6x6in X5 - [id number] Implanted:Qty: 1 on 07/15/2014 at [place] [facility] [place] CR BARD : PERIPHERAL VASCULAR 11/14/2018 [id number] / / [id number] Graft Valved Valsalva 27mm - [id number] Implanted:Qty: 1 on 07/15/2014 at [place] [facility] [place] N/A: Aorta [employer] 12/15/2017 27VAVGJ-5 15 / [id number] / Sut Steel 6 M654g - [id number] Implanted:Qty: 1 on 05/29/2015 by Smith Shelton MD at [place] [facility] N/A: Chest JNJ : [employer] 06/02/2019 M654G / / [id number] Graft Gelweave 8x15 [id number] - [id number] - [id number] Implanted:Qty: 1 on 05/29/2015 by Smith Shelton MD at [place] [facility] [place] Right: Axilla [employer] : CARDIO SYS 05/02/2020 [id number] / [id number] / [id number] Description:implanted in rig ht axillary Graft Gelweave 8x15 [id number] - [id number] - [id number] Implanted:Qty: 1 on 05/29/2015 by Smith Shelton MD at [place] [facility] Left: Carotid [employer] : CARDIO SYS 05/02/2020 [id number] / [id number] / [id number] Gelweave Woven Vascular Prosthesis, Branched Arch Graft W/ Radiopaque Markers Implanted:Qty: 1 on 05/29/2015 by Smith Shelton MD at [place] [facility] [place] N/A: Aorta [employer] : VASCUTEK 04/02/2020 [id number] / [id number] / [id number] Description:Diameter: 01/11/ 8/8 x 10 mm Usable Length: 20 cm +2@15 cm +2@30 cm Sut Steel 6 M654g - [id number] Implanted:Qty: 4 on 05/29/2015 by Smith Shelton MD at [place] [facility] [place] N/A: Chest JNJ : [employer] 06/02/2019 M654G / / [id number] Broadalbin Ptfe 6x6in X5 - [id number] Implanted:Qty: 1 on 05/29/2015 by Smith Shelton MD at [place] [facility] N/A: Aorta CR BARD : PERIPHERAL VASCULAR 12/03/2019 [id number] / / [id number] Description:felt cut to surg lazaro's desired preference Mesh Vicryl 12 X 12 Vkm-L - [id number] Implanted:Qty: 1 on 12/30/2019 by Mihir Calvo MD at [place] [facility] N/A: Abdomen JNJ : [employer] 04/02/2024 VKM-L / / [id number] Prolene Mesh - [id number] Implanted:Qty: 1 on 12/30/2019 by Mihir Calvo MD at [place] [facility] [place] N/A: Abdomen [employer] [id number] 03/02/2023 [id number] / / [id number] documented as of this encounter Visit Diagnoses Diagnosis Status post mechanical aortic valve replacement- Primary Pre-operative examination Preoperative examination, unspecified Morbid obesity (HCC) Morbid obesity documented in this encounter Advance Directives * [...] the patient have Health Care Power of Podiatric Technician? Yes, not currently available * Full Code [...] Power of Attor luciano? No Care Teams Record Clerk Relationship Specialty Start Date End Date Leonila Raygoza MD [address] [place] [address] [place] [address] PCP - General Family Medicine 04/17/24 documented as of this encounter
--- OUTSIDE RECORDS SUMMARY | 2024-05-26 16:46 | External Medical Summary | Summary of Care ---
Author Name Unknown Organization [facility] Address [address] [place] [address] Phone [phone] Care Team Providers Care Emergency Medicine Specialist Name Role Phone Leonila Raygoza MD Primary Care Prov ider Reason for Visit * Reason Onset Date Comments Medication Refill 04/19/2024 Encounter Details Date Type Department Care Team (Late st Contact Info) Description 04/19/2024 Refill Family Medicine [address] [phone] Leonila Raygoza MD [address] [place] [address] Allergies No known active allergiesdocumented as of this encounter (statuses as of 04/20/2024) Medications Medication Sig Dispensed Refills Start Date End Date Status Warfarin Sodium 5 MG Oral Tablet (Coumadin)Indicatio ns:Status post mechanical aortic valve replacement,Anticoa gulation management encounter,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 Or take as instructed by the [facility] 270 Tablet 3 06/23/2023 Active Acetaminophen 500 MG Oral Tablet (Tylenol)Indication s:Morbid obesity with BMI of 50.0-59.9, adult (HCC),Pre-operative examination take 2 tabs by mouth every 8 hours pain after surgery for 3 days 18 Tablet 07/30/2023 Active Ondansetron HCl 4 MG Oral TabletIndications:M orbid obesity with BMI of 50.0-59.9, adult ([facility]),Pre-operative examination 1 tablet by mouth every 8 [...] the morning. 30 Tablet 1 04/20/2024 Active Torsemide 10 MG Oral Tablet (Demadex) Take 1 Tablet by mouth in the morning. 1 Tablet 10/18/2023 Discontinue d(Refill) Hospital, Clinic, or Other Facility Administered Medication Ordered Dose Route Frequency Start Date End Date Status vitamin b-12 (Cyanocobalamin) inj 1,000 mcgIndications:S/P gastric bypass 1000 mcg IM [id number] 12/16/2023 11/16/2024 Active documented as of this encounter (statuses as of 04/20/2024) Active Problems Problem Noted Date Diagnosed Date [...] ion) 10/14/2023 Pre-operative examination 07/30/2023 MICHAEL RESEARCH OTHER*[id number] 01/20/2023 Morbid obesity 12/20/2021 Diffuse axonal brain injury 04/09/2021 Status post mechanical aortic valve replacement 07/18/2014 Thoracic aortic aneurysm 07/12/2014 DDD (degenerative disc disease), lumbar Overview: mostly L5 documented as of this encounter (statuses as of 04/20/2024) Resolved Problems Problem Noted Date Diagnosed Date [...] as of this encounter (statuses as of 04/20/2024) Immunizations Name Administration Dates Next Due Haemophilius [...] encounter Miscellaneous Notes * Telephone Encounter - Leonila Raygoza MD - 04/20/2024 12:21 PM EDTSigned Prescriptions: Disp Refills Torsemide 10 MG Oral Tablet (Demadex) 30 Tab*1 Sig: Take 1 Tablet by mouth in the morning. Authorizing Provider: LEONILA RAYGOZA * [facility] 9[facility]25 AM EDTPending Prescriptions: Disp Refills Torsemide 10 MG Oral Tablet (Demadex) 30 Tab*1 Sig: Take 1 Tablet by mouth in the morning. * Telephone Encounter - Tulio Padron [facility] - 04/20/2024 9:23 AM EDT Unable to authorize medication refills for pended medication(s) at this time. Part of the protocol criteria used for refill authorization was not satisfied. Rx last prescribed at discharge, unsure ifpt is to continue as needed. Please see pt note. Rx pended as 30ds. Please approve if appropriate. Thank You, Tulio Barillas [facility] Clinical Pharmacist Centralized Clinical Pharmacy Services ([facility]) 04/20/2024, 9:23 AM * Telephone Encounter - Tulio Padron [facility] - 04/20/2024 9:22 AM EDT Pending Prescriptions: Disp Refills Torsemide 10 MG Oral Tablet (Demadex) 1 Tabl*0 Sig: Take 1 Tablet by mouth in the morning. Last Visit: 01/06/2024 (in office), 05/05/2023 (telemedicine) Next Visit: 07/13/2024 If no future appointments scheduled, and last appointment is greater than a year ago, please schedule patient for a follow-up appointment Last date the medication was ordered: 10/18/23 Pharmacy: [facility] Is this request for a controlled substance? No Urine Drug Screen: Results for orders placed [...] found in Results Review. Patient Phone Numbers [employer] [phone] Labs: Lab Results Component Value Date/Time CREAT [...] Anticoagulation Centralized Clinical Pharmacy Services, Juliet Urbano [address] [place] [address] [place] [address] [facility] 58 [address] [facility] [place] [address] 06/04/2024 3:50 PM EDT Telemedicine Nutrition & Weight Management, [facility] [address] [place] [address] Dulce Pace RDN [address] [place] [address] 07/13/2024 8:20 AM EDT Office Visit Family Medicine [address] [place] [phone] Leonila Raygoza MD [address] [place] [address] [place] [address] 07/30/2024 8:30 AM EDT Office Visit Cardiology, [facility] [address] [place] [address] Pepe Dupont MD [address] [place] [address] 09/02/2024 2:30 PM EDT Nutrition Services Nutrition & Weight Management, [facility] [address] [place] [place] [address] Dulce Pace RDN [address] [place] [address] 09/02/2024 3:40 PM EDT Office Visit Nutrition & Weight Management, [facility] [address] [place] [address] Misa Katz PA-C [address] [place] [address] 09/17/2024 4:30 PM EST Imaging Radiology [facility] [place] [address] [facility] [place] [address] 09/29/2024 3:00 PM EST Telemedicine Cardiothoracic Surg [facility] [place] [address] [place] [address] Tulio Campbell MD [address] [place] [address] 10/26/2024 10:00 AM EST Telemedicine General Surgery, [place] [address] [place], [place] [phone] Yomi Barros PA-C [address] [place] [address] 01/05/2025 9:00 AM EST Office Visit Family [address] [phone] Leonila Raygoza MD [address] [place] [address] [place] [address] Health Maintenance Due Date Last Done Comments [...] this encounter Medical Devices Implanted Type Area Traffic Operations Engineer Device Identifier Shelf Expiration Date Model / Serial / Lot Sut Steel 6 M654g - [id number] [place]planted:Q[place]: 6 [place] 07/[place] [facility] [place]: Chest JNJ : [employer] 05/03/2018 M654G / / [id number] Graft Gelweave 8x15 [id number] - [id number] Implanted:Qty: 1 on 07/15/2014 [place] [facility] [place]: Axilla [employer] : CARDIO SYS 05/03/2019 634326 / [id number] / [id number] [place] Ptfe 6x6in X5 - [id number] Implanted:Qty: 1 on 07/15/2014 [place] [facility] [place] CR BARD : PERIPHERAL VASCULAR 11/14/2018 196617 / / [id number] Graft Valved Valsalva 27mm - [id number] Implanted:Qty: 1 on 07/15/2014 [place] [facility] [place] N/A: Aorta [employer] 12/15/2017 27VAVGJ-5 15 / [id number] / Sut Steel 6 M654g - [id number] Implanted:Qty: 1 on 05/29/2015 by Smith Shelton MD [place] [facility] [place]A: Chest JNJ : [employer] 06/02/2019 M654G / / [id number] Graft Gelweave 8x15 [id number] - [id number] - [id number] Implanted:Qty: 1 on 05/29/2015 by Smith Shelton MD at [place] [facility] [place]: Axilla [employer] : CARDIO SYS 05/02/2020 308494 / [id number] / [id number] Description:implanted in rig axillary Graft Gelweave 8x15 279557 - [id number] - [id number] Implanted:Qty: 1 on 05/29/2015 by Smith Shelton MD [place] [facility] [place] Left: Carotid [employer] : CARDIO SYS 05/02/2020 [id number] / [id number] Gelweave Woven Vascular Prosthesis, Branched Arch Graft W/ Radiopaque Markers Implanted:Qty: 1 on 05/29/2015 by Smith Shelton MD at [place] [facility] [place]A: Aorta [employer] : VASCUTEK 04/02/2020 [id number] / [id number] Description:Diameter: 30// 8/8 x 10 mm Usable Length: 20 cm +2@15 cm +2@30 cm Sut Steel 6 M654g - [id number] Implanted:Qty: 4 on 05/29/2015 by Smith Shelton MD [place] [facility] [place]A: Chest JNJ : [employer] 06/02/2019 M654G / / [id number] [place] Ptfe 6x6in X5 - [id number] Implanted:Qty: 1 on 05/29/2015 by Smith Shelton MD at [place] [facility] [place]A: Aorta CR BARD : PERIPHERAL VASCULAR 12/03/2019 [id number] / / [id number] Description:felt cut to surg lazaro's desired preference Mesh Vicryl 12 X 12 Vkm-L - [id number] Implanted:Qty: 1 on 12/30/2019 by Mihir Calvo MD at [place] [facility] [place]A: Abdomen JNJ : [employer] 04/02/2024 VKM-L / / [id number] Prolene Mesh - [id number] Implanted:Qty: 1 on 12/30/2019 by Mihir Calvo MD at [place] [facility] [place]/A: Abdomen [employer] [id number] 03/02/2023 SPM3XL / / [id number] documented as of this encounter Advance Directives * Full Code [...] the patient have Health Care Power of Svp Chief Marketing Officer? Yes, not currently available * Full Code [...] Power of Attor luciano? No Care Teams Emergency Medicine Specialist Relationship Specialty Start Date End Date Leonila Raygoza MD [address] [place] [address] [place] [address] PCP - General Family Medicine 04/17/24 documented as of this encounter
--- OUTSIDE RECORDS SUMMARY | 2024-05-26 16:46 | External Medical Summary | Summary of Care ---
Author Name Unknown Organization [facility] Address [address] [place] [address] Phone [phone] Care Team Providers Care Caster Investment Casting Name Role Phone Leonila Raygoza MD Primary Care Prov ider Reason for Visit * Reason Onset Date Comments Medication Refill 04/19/2024 Encounter Details Date Type Department Care Team (Late st Contact Info) Description 04/19/2024 Refill Cardiology, 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 Or take as instructed by the [facility] 270 Tablet 3 06/23/2023 Active Acetaminophen 500 MG Oral Tablet (Tylenol)Indication s:Morbid obesity with BMI of 50.0-59.9, adult (HCC),Pre-operative examination take 2 tabs by mouth every 8 hours pain after surgery for 3 days 18 Tablet 07/30/2023 Active Ondansetron HCl 4 MG Oral TabletIndications:M orbid obesity with BMI of 50.0-59.9, adult ([facility]),Pre-operative examination 1 tablet by mouth every 8 hours as needed for nausea after surgery. 30 Tablet 1 07/30/2023 Active Torsemide 10 MG Oral Tablet (Demadex) Take 1 Tablet by mouth in the morning. 1 Tablet 10/18/2023 Active Losartan Potassium 50 MG Oral Tablet [...] before bedtime. 540 Tablet 3 04/19/2024 Active Metoprolol Tartrate 25 MG Oral Tablet (Lopressor) Take 3 Tablets by mouth in the morning and 3 Tablets before bedtime. 180 Tablet 3 11/17/2023 4 Discontinue d(Refill) Hospital, Clinic, or Other Facility Administered Medication Ordered Dose Route Frequency Start Date End Date Status vitamin b-12 (Cyanocobalamin) inj 1,000 mcgIndications:S/P gastric bypass 1000 mcg IM [id number] 12/16/2023 11/16/2024 Active documented as of this encounter (statuses as of 04/19/2024) Active Problems Problem Noted Date Diagnosed Date [...] ion) 10/14/2023 Pre-operative examination 07/30/2023 MICHAEL RESEARCH OTHER*[id number] 01/20/2023 Morbid obesity 12/20/2021 Diffuse axonal brain injury 04/09/2021 Status post mechanical aortic valve replacement 07/18/2014 Thoracic aortic aneurysm 07/12/2014 DDD (degenerative disc disease), lumbar Overview: mostly L5 documented as of this encounter (statuses as of 04/19/2024) Resolved Problems Problem Noted Date Diagnosed Date [...] dissection, abdominal 07/28/2014 Acute blood loss anemia 07/0 07/2015 Dental caries 11/18/2023 Anxiety disorder 01/06/2024 Morbid obesity with BMI of 45.0-49.9, adult 07/19/2021 Overview: Per Obesity protocol Primary hypertension 024 documented as of this encounter (statuses as of 04/19/2024) Immunizations Name Administration Dates Next Due Haemophilius [...] (15 years old or older) No 12/29/19 Cognitive Status Response Date of Assessm ent Because of a physical, menta l, or emotional condition, do you have serious difficulty concentrating, remembering, or making decisions? (5 years old or older) No 12/29/2019 documented as of this encounter Miscellaneous Notes * Telephone Encounter - Gui Phillips PA-C - 04/19/2024 5:54 PM EDT Signed Prescriptions: Disp Refills Metoprolol Tartrate 25 MG Oral Tablet (Lop*540 Ta*3 Sig: Take 3 Tablets by mouth in the morning and 3 Tablets before bedtime. Authorizing Provider: GUI PHILLIPS * Telephone Encounter - Bruce Flores RN - 04/19/2024 12:54 PM EDTPending Prescriptions: Disp Refills Metoprolol Tartrate 25 MG Oral Tablet (Lop*540 Ta*3 Sig: Take 3 Tablets by mouth in the morning and 3 Tablets before bedtime. * Telephone Encounter - Bruce Flores RN - 04/19/2024 12:52 PM EDT Pending Prescriptions: Disp Refills Metoprolol Tartrate 25 MG Oral Tablet (Lo*540 Ta*3 Sig: Take 3 Tablets by mouth in the morning and 3 Tablets before bedtime. Last Visit: 09/12/2023 (in office), Visit date not found (telemedicine) Next Visit: 07/30/2024 Last medication order date: 11/17/2023 Have you choosen a preferred pharm?? yes Patient Active Problem List Diagnosis Thoracic aortic aneurysm Status post mechanical aortic valve replacement DDD (degenerative disc disease), lumbar Diffuse axonal brain injury (HCC) Morbid obesity (HCC) MICHAEL RESEARCH OTHER*[id number] Pre-operative examination S/P gastric bypass HFrEF (heart failure with reduced ejection fraction) (HCC) Chronic heart failure with preserved ejection fraction (HCC) Congenital bicuspid aortic valve Gastroesophageal reflux disease TIMMY (generalized anxiety disorder) GUILLERMO on CPAP Hyperlipidemia Left bundle branch block H/O mechanical aortic valve replacement History of aortic dissection Hypertension Labs: Lab Results Component Value Date/Time CREATININE - [facility] 0.8 10/17/2023 05:08 AM CREATININE - [facility] 0.9 03/08/2020 12:39 PM CREATININE CORRY 278 05/19/2018 10:50 AM CREATININE ISTAT 1.1 10/03/2015 03:29 PM CREATININE, RANDOM URINE - [facility] 160 01/20/2023 08:49 AM CREATININE, RANDOM URINE - [facility] 273 01/01/2020 05:30 PM CREATININE-OUTSIDE LAB 0.79 05/23/2019 12:00 AM Lab Results Component Value Date/Time POTASSIUM - [facility] 4.7 10/17/2023 05:08 AM POTASSIUM - [facility] 4.7 01/27/2020 01:29 PM POTASSIUM POCT - [facility] 4.4 05/29/2015 06:44 PM POTASSIUM, WHOLE BLOOD - [facility] 4.2 12/30/2019 02:30 PM POTASSIUM-OUTSIDE LAB 4.2 05/23/2019 12:00 AM Lab Results Component Value Date/Time TSH - [facility] 0.99 01/20/2023 11:01 AM TSH - [facility] 1.03 04/08/2018 11:41 AM TSH - OUTSIDE LAB 0.640 05/23/2019 12:00 AM Lab Results Component Value Date/Time LDL CHOLESTEROL (CALCULATED) - [facility] 52 04/10/2023 09:26 AM LDL CHOLESTEROL (CALCULATED) - [facility] 46 01/20/2023 08:49 AM LDL CHOLESTEROL (CALCULATED) - [facility] 143 (H) 11/06/2018 08:33 AM LDL CHOLESTEROL (CALCULATED) - [facility] 119 04/28/2015 12:19 PM LDL CHOLESTEROL (DIRECT MEASURE) - [facility] 77 10/04/2022 11:10 AM LDL CHOLESTEROL (DIRECT MEASURE) - [facility] NOT APPLICABLE 11/06/2018 08:33 AM Lab Results Component Value Date/Time ALT - [facility] 35 01/20/2023 11:01 AM ALT - [facility] 51 (H) 08/11/2016 01:45 AM ALT-OUTSIDE LAB 68 05/18/2017 12:00 AM Hemoglobin AIC Results: Lab Results Component Value Date/Time HEMOGLOBIN A1C - [facility] 5.1 01/20/2023 11:01 AM HEMOGLOBIN A1C - [facility] 4.8 05/29/2015 04:00 AM documented in this encounter Plan of Treatment Upcoming Encounters Date Type Department Care Team (Late st Contact Info) Description 05/03/2024 6:45 PM EDT Anticoagulation Centralized Clinical Pharmacy Services, [facility] Urbano [address] [place] [address] [place] [address] [facility] 58 60 [facility] [place] [address] 06/04/2024 3:50 PM EDT Telemedicine Nutrition & Weight Management, [address] [place] [address] Dulce Pace RDN [address] [place] [address] 07/13/2024 8:20 AM EDT Office Visit Family [address] [place] [address] Leonila Raygoza MD [address] [place] [address] [place] [address] 07/30/2024 8:30 AM EDT Office Visit Cardiology, [facility] [address] [place] [address] Pepe Dupont MD [address] [place] [address] 09/02/2024 2:30 PM EDT Nutrition Services Nutrition & Weight Management, [facility] [address] [place] [address] Dulce Pace RDN [address] [place] [address] 09/02/2024 3:40 PM EDT Office Visit Nutrition & Weight Management, [facility] [address] [place] [address] Misa Katz PA-C [address] [place] [address] 09/17/2024 4:30 PM EST Imaging Radiology [facility] 1st Floor, [place] [address] [place] [address] 09/29/2024 3:00 PM EST Telemedicine Cardiothoracic Surg [facility] [address] [place] [address] Tulio Campbell MD [address] [place] [address] 10/26/2024 10:00 AM EST Telemedicine General Surgery, [place] [address] [place] [address] Yomi Barros PA-C [address] [place] [address] 01/05/2025 9:00 AM EST Office Visit [address] [phone] Leonila Raygoza MD [address] [place] [address] [place] [address] Health Maintenance Due Date Last Done [...] this encounter Medical Devices Implanted Type Area Customer Success Manager Device Identifier Shelf Expiration Date Model / Serial / Lot Sut Dao 6 M654g - [id number] Implanted:Qty: 6 on 07/15/2014 at OR [facility] N/A: Chest JNJ : [employer] 05/03/2018 M654G / / [id number] Graft Gelweave 8x15 [id number] - [id number] Implanted:Qty: 1 on 07/15/2014 at OR [facility] Right: Axilla [employer] : CARDIO SYS 05/03/2019 [id number] / [id number] / [id number] Ryde Ptfe 6x6in X5 - [id number] Implanted:Qty: 1 on 07/15/2014 at OR [facility] CR BARD : PERIPHERAL VASCULAR 11/14/2018 [id number] / / [id number] Graft Valved Valsalva 27mm - [id number] Implanted:Qty: 1 on 07/15/2014 at OR [facility] N/A: Aorta [employer] 12/15/2017 [id number]-5 15 / [id number] / Sut Steel 6 M654g - [id number] Implanted:Qty: 1 on 05/29/2015 by Smith Shelton MD at OR [facility] N/A: Chest JNJ : [employer] 06/02/2019 M654G / / [id number] Graft Gelweave 8x15 [id number] - [id number] - [id number] Implanted:Qty: 1 on 05/29/2015 by Smith Shelton MD at OR [facility] Right: Axilla [employer] : CARDIO SYS 05/02/2020 [id number] / [id number] / [id number] Description:implanted in rig ht axillary Graft Gelweave 8x15 [id number] - [id number] - [id number] Implanted:Qty: 1 on 05/29/2015 by Smith Shelton MD at OR [facility] Left: Carotid [employer] : CARDIO SYS 05/02/2020 [id number] / [id number] / [id number] Gelweave Woven Vascular Prosthesis, Branched Arch Graft W/ Radiopaque Markers Implanted:Qty: 1 on 05/29/2015 by Smith Shelton MD at OR [facility] N/A: Aorta [employer] : VASCUTEK 04/02/2020 [id number] / [id number]/ [id number] Description:Diameter: 01/11/ 8/8 x 10 mm Usable Length: 20 cm +2@15 cm +2@30 cm Sut Steel 6 M654g - [id number] Implanted:Qty: 4 on 05/29/2015 by Smith Shelton MD at OR [facility] N/A: Chest JNJ : [employer] 06/02/2019 M654G / / [id number] Ryde Ptfe 6x6in X5 - [id number] Implanted:Qty: 1 on 05/29/2015 by Smith Shelton MD at OR [facility] N/A: Aorta CR BARD : PERIPHERAL VASCULAR 12/03/2019 [id number] / / [id number] Description:felt cut to surg lazaro's desired preference Mesh Vicryl 12 X 12 Vkm-L - [id number] Implanted:Qty: 1 on 12/30/2019 by Mihir Calvo MD at OR [facility] N/A: Abdomen JNJ : [employer] 04/02/2024 VKM-L / / [id number] Prolene Mesh - [id number] Implanted:Qty: 1 on 12/30/2019 by Mihir Calov MD at OR [facility] N/A: Abdomen SourceClear [facility] [id number] 03/02/2023 [id number] / / [id number] documented as of this encounter Advance Directives [...] the patient have Health Care Power of Epidemiology Intern? Yes, not currently available * Full Code [...] 6:18 PM 01/07/2020 5:32 PM This order r eflects the patients [...] Power of Attor luciano? No Care Teams Caster Investment Casting Relationship Specialty Start Date End Date Leonila Raygoza MD [address] [place] [address] [place] [address] PCP - General Family Medicine 04/17/24 documented as of this encounter
--- OUTSIDE RECORDS SUMMARY | 2024-05-26 16:47 | External Medical Summary | Summary of Care ---
Author Name Unknown Organization [facility] Address [address] [place] [address] Phone [phone] Care Team Providers Care Director Mortgage Name Role Phone Unavailable Primary Care Provider Unavailabl e Reason for Visit * Reason Comments Dosage Adjustment Via Phone (anticoag Cl inic) No Show Encounter Details Date Type Department Care Team (Latest Contact Info) Description 03/11/2024 6:45 PM EDT Anticoagulation Pharmacy Call Center [phone] [facility] [place] [address] [facility] 58 60 [facility] [address] Anticoagulation management encounter* Allergies No known active allergiesdocumented as of this encounter (statuses as of 03/11/2024) Medications Medication Sig Dispensed Refills Start Date End Date Status Warfarin Sodium 5 MG Oral Tablet (Coumadin)Indication s:Status post mechanical aortic valve replacement,Anticoag ulation management encounter,intermediate current use of 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 Or take as instructed by the [facility] 270 Tablet 3 06/23/2023 Active Acetaminophen 500 MG Oral Tablet (Tylenol)Indications :Morbid obesity with BMI of 50.0-59.9, adult (HCC),Pre-operative examination take 2 tabs by mouth every 8 hours pain after surgery for 3 days 18 Tablet 0 07/30/2023 Active Ondansetron HCl 4 MG Oral TabletIndications:Mo rbid obesity with BMI of 50.0-59.9, adult (HCC),Pre-operative examination 1 tablet by mouth every 8 hours as needed for nausea after surgery. 30 Tablet 1 07/30/2023 Active Torsemide 10 MG Oral Tablet (Demadex) Take 1 Tablet by mouth in the morning. 1 Tablet 0 10/18/2023 Active Losartan Potassium 50 MG Oral Tablet (Cozaar) Take 1 Tablet by mouth in the morning and 1 Tablet before bedtime. 180 Tablet 3 11/17/2023 Active Metoprolol Tartrate 25 MG Oral Tablet (Lopressor) Take 3 Tablets by mouth in the morning and 3 Tablets before bedtime. 180 Tablet 3 11/17/2023 Active [...] for 90 days after surgery. 90 Capsule 0 01/06/2024 Active DULoxetine HCl 30 MG Oral Capsule Delayed Release Particles (Cymbalta)Indication s:Anxiety disorder due to known physiological condition TAKE ONE CAPSULE BY MOUTH EVERY DAY 90 Capsule 2 01/20/2024 Active Clopidogrel Bisulfate 75 MG Oral Tablet (pLAVix)Indications: H/O aortic dissection TAKE ONE TABLET BY MOUTH EVERY MORNING 90 Tablet 0 02/23/2024 Active Atorvastatin Calcium 10 MG Oral Tablet (Lipitor)Indications :LBBB (left bundle branch block) TAKE ONE TABLET BY MOUTH AT BEDTIME 90 Tablet 1 03/05/2024 Active Hospital, Clinic, or Other Facility Administered Medication Ordered Dose Route Frequency Start Date End Date Status vitamin b-12 (Cyanocobalamin) inj 1,000 mcgIndications:S/P gastric bypass 1000 mcg IM [id number] 12/16/2023 11/16/2024 Active documented as of this encounter (statuses as of 03/11/2024) Active Problems Problem Noted Date Diagnosed Date [...] ion) 10/14/2023 Pre-operative examination 07/30/2023 MICHAEL RESEARCH OTHER*[id number] 01/20/2023 Morbid obesity 12/20/2021 Diffuse axonal brain injury 04/09/2021 Status post mechanical aortic valve replacement 07/18/2014 Thoracic aortic aneurysm 07/12/2014 DDD (degenerative disc disease), lumbar Overview: mostly L5 documented as of this encounter (statuses as of 03/11/2024) Resolved Problems Problem Noted Date Diagnosed Date [...] as of this encounter (statuses as of 03/11/2024) Immunizations Name Administration Dates Next Due Haemophilius [...] as of this encounter Progress Notes * Vanita Doe, convention planner - 03/11/2024 8:01 AM EDT Patient Phone Numbers LVM reminding patient he is overdue for PT/INR blood work. Will follow up again in 4 weeks if labs are not drawn sooner. Thank you, Vanita Doe Crusher Loader Operator [facility] Services ([facility]) 03/11/2024,8:02 AM documented in this encounter Plan of Treatment Upcoming Encounters Date Type Department Care Team (Late st Contact Info) Description 04/05/2024 6:45 PM EDT Anticoagulation Pharmacy Call Center [phone] [facility] [place] [address] [facility] 58 60 [facility] [place] [address] 04/23/2024 11:00 AM EDT Office Visit [facility] Disorders C[facility] [address] [place] [phone] Isabella Maynard, [address] [place] [address] 06/04/2024 3:50 PM EDT Telemedicine Nutrition & Weight Management, [facility] [address] [place] [address] Dulce Pace RDN [address] [place] [address] 07/13/2024 8:20 AM EDT Office Visit Family [address] [place] [phone] Leonila Raygoza MD [address] [place] [address] [place] [address] 07/30/2024 8:30 AM EDT Office Visit Cardiology, [facility] [address] [place] [address] Pepe Dupont MD [address] [place] [address] 09/02/2024 2:30 PM EDT Nutrition Services Nutrition & Weight Management, [facility] [address] [place] [address] Dulce Pace RDN [address] [place] [address] 09/02/2024 3:40 PM EDT Office Visit Nutrition & Weight Management, [facility] [address] [place] [address] Misa Katz PA-C [address] [place] [address] 10/26/2024 10:00 AM EST Telemedicine General Surgery, [place] [address] [place] [address] Yomi Barros PA-C [address] [place] [address] 01/05/2025 9:00 AM EST Office Visit Family Medicine [address] [place] [address] Leonila Raygoza MD [address] [place] [address] [place] [address] Health Maintenance Due Date Last Done Comments Hepatitis B (1 of 3 - 19+ 3-dose series) 2005 Depression Screening 01/12/2021 01/13/2020 COVID-19 Vaccine ( - 2022-24 season) 2023 Influenza Vaccine (FLU shot) (Season [...] this encounter Medical Devices Implanted Type Area Technical Communicator Device Identifier Shelf Expiration Date Model / Serial / Lot Sut Steel 6 M654g - [id number] Implanted:Qty: 6 on 07/15/2014 at OR [facility] N/A: Chest JNJ : [employer] 05/03/2018 M654G / / [id number] Graft Gelweave 8x15 [id number] - [id number] Implanted:Qty: 1 on 07/15/2014 at OR [facility] Right: Axilla [employer] : CARDIO SYS 05/03/2019 [id number] / [id number] / [id number] [place] Ptfe 6x6in X5 - [id number] Implanted:Qty: 1 on 07/15/2014 at OR [facility] CR BARD : PERIPHERAL VASCULAR 11/14/2018 [id number] / / [id number] Graft Valved Valsalva 27mm - [id number] Implanted:Qty: 1 on 07/15/2014 at OR [facility] N/A: Aorta [employer] 12/15/2017 [id number]-5 15 / [id number] / Sut Steel 6 M654g - [id number] Implanted:Qty: 1 on 05/29/2015 by Smith Shelton MD at OR [facility] N/A: Chest JNJ : [employer] 06/02/2019 M654G / / [id number] Graft Gelweave 8x15 [id number] - [id number] - [id number] Implanted:Qty: 1 on 05/29/2015 by Smith Shelton MD at OR [facility] Right: Axilla [employer] : CARDIO SYS 05/02/2020 [id number] / [id number] / [id number] Description:implanted in rig ht axillary Graft Gelweave 8x15 826127 - [id number] - [id number] Implanted:Qty: 1 on 05/29/2015 by Smith Shelton MD at OR [facility] Left: Carotid [employer] : CARDIO SYS 05/02/2020 [id number] / [id number] / [id number] Gelweave Woven Vascular Prosthesis, Branched Arch Graft W/ Radiopaque Markers Implanted:Qty: 1 on 05/29/2015 by Smith Shelton MD at OR [facility] N/A: Aorta [employer] : VASCUTEK 04/02/2020 [id number] / [id number]/ [id number] Description:Diameter: 30/ 8/8 x 10 mm Usable Length: 20 cm +2@15 cm +2@30 cm Sut Steel 6 M654g - [id number] Implanted:Qty: 4 on 05/29/2015 by Smith Shelton MD at OR [facility] N/A: Chest JNJ : [employer] 06/02/2019 M654G / / [id number] Bruc[place] Ptfe 6x6in X5 - [id number] Implanted:Qty: 1 on 05/29/2015 by Smith Shelton MD at OR [facility] N/A: Aorta CR BARD : PERIPHERAL VASCULAR 12/03/2019 [id number] / / [id number] Description:felt cut to surg lazaro's desired preference Mesh Vicryl 12 X 12 Vkm-L - [id number] Implanted:Qty: 1 on 12/30/2019 by Mihir Calvo MD at OR [facility] N/A: Abdomen JNJ : [employer] 04/02/2024 VKM-L / / [id number] Prolene Mesh - [id number] Implanted:Qty: 1 on 12/30/2019 by Mihir Calvo MD at OR [facility] N/A: Abdomen [employer] [id number] 03/02/2023 SPM3XL / / [id number] documented as of this encounter Visit Diagnoses Diagnosis Anticoagulation management encounter- Primary Encounter for therapeutic drug monitoring documented in this encounter Advance Directives Latest Code Status on File Code Status Date Activated Date Inactivated Comments Full Code 10/14/2023 6:30 PM 10/17/2023 4:50 PM Thi s order reflects the patients wishes and were consensually agreed upon. Question Answer Comments Discussion of Advance Directives occurred with: Patient Does the patient have a Living Will? Yes, not currently available Does the patient have Health Care Power of Consumer Services Advisor? Yes, not currently available Code Status History Code Status Date Activated Date Inactivated Comments Full Code 10/14/2023 9:30 AM 10/14/2023 6:30 PM Thi s order reflects the patients wishes and were consensually agreed upon. Question Answer Comments Discussion of Advance Directives occurred with: Patient Full Code 04/08/2021 4:39 PM 04/09/2021 10:07 PM This o rder reflects the patients wishes and were consensually agreed upon. Full Code 12/30/2019 6:18 PM 01/07/2020 5:32 PM This o rder reflects the patients wishes and were consensually agreed upon. Question Answer Comments Discussion of Advance Directives occurred with: Not Discussed Does the patient have a Living Will? No Does the patient have Health Care Power of Consumer Services Advisor? No Full Code 12/29/2019 7:58 PM 12/30/2019 6:18 PM This order reflects the patients wishes and were consensually agreed upon. Question Answer Comments Discussion of Advance Directives occurred with: Not Discussed Does the patient have a Living Will? No Does the patient have Health Care Power of Consumer Services Advisor? No
--- OUTSIDE RECORDS SUMMARY | 2024-05-26 16:47 | External Medical Summary | Summary of Care ---
Author Name Unknown Organization [facility] Address [address] [place] [address] Phone [phone] Care Team Providers Care Care Transitions Manager Name Role Phone Unavailable Primary Care Provider Unavailabl e Reason for Visit * Reason Comments Status Check Dosage Adjustment Via Phone (anticoag Cl inic) Encounter Details Date Type Department Care Team (Latest Contact Info) Description 04/05/2024 6:45 PM EDT Anticoagulation Pharmacy Call Center [phone] Public [facility] [place] [address] [facility] 58 60 [facility] [place] [address] Status post mechanical aortic valve replacement*; Pre-operative examination; Morbid obesity (HCC) Allergies No known active allergiesdocumented as of this encounter (statuses as of 04/05/2024) Medications Medication Sig Dispensed Refills Start Date End Date Status Warfarin Sodium 5 MG Oral Tablet (Coumadin)Indication s:Status post mechanical aortic valve replacement,Anticoag ulation management encounter,jail current use of 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 Or take as instructed by the [facility] 270 Tablet 3 06/23/2023 Active Acetaminophen 500 MG Oral Tablet (Tylenol)Indications :Morbid obesity with BMI of 50.0-59.9, adult (HCC),Pre-operative examination take 2 tabs by mouth every 8 hours pain after surgery for 3 days 18 Tablet 07/30/2023 Active Ondansetron HCl 4 MG Oral TabletIndications:Mo rbid obesity with BMI of 50.0-59.9, adult ([facility]),Pre-operative examination 1 tablet by mouth every [...] 1,000 mcgIndications:S/P gastric bypass 1000 mcg IM [id number] 12/16/2023 11/16/2024 Active documented as of this encounter (statuses as of 04/05/2024) Active Problems Problem Noted Date Diagnosed Date [...] ion) 10/14/2023 Pre-operative examination 07/30/2023 MICHAEL RESEARCH OTHER*[id number] 01/20/2023 Morbid obesity 12/20/2021 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 Last INR 12/16. Will attempt gain in 4 weeks. Thank you, Dinorah Escobar Ground Services Instructor [facility] ([facility]) ( Formerly Telepharmacy) 04/05/2024, 8:07 AM documented in this encounter Plan of Treatment Upcoming Encounters Date Type Department Care Team (Late st Contact Info) Description 04/23/2024 11:00 AM EDT Office Visit Sleep Disorders Ctr [facility] [address] [place] [phone] Isabella Maynard, DO [address] [place] [address] 05/03/2024 6:45 PM EDT Anticoagulation Pharmacy Call Center WB [phone] Public [place] [address] [facility] 58 60 [facility] [place] [address] 06/04/2024 3:50 PM EDT Telemedicine Nutrition & Weight Management, [facility] [address] [place] [address] Dulce Pace RDN [address] [place] [address] 07/13/2024 8:20 AM EDT Office Visit [address] [place] [phone] Leonila Raygoza MD [address] [place] [address] [place] [address] 07/30/2024 8:30 AM EDT Office Visit Cardiology, [facility] [address] [place] [address] ePpe Dupont MD [address] [place] [address] 09/02/2024 2:30 PM EDT Nutrition Services Nutrition & Weight Management, [facility] [address] [place] [address] Dulce Pace RDN [address] [place] [address] 09/02/2024 3:40 PM EDT Office Visit Nutrition & Weight Management, [facility] [place] [address] Misa Katz PA-C [address] [place] [address] 10/26/2024 10:00 AM EST [facility] [address] [place], [place] [phone] Yomi Barros PA-C [address], [place] [phone] 01/05/2025 9:00 AM EST Office Visit Family Medicine [address] [place] [phone] Leonila Raygoza MD [address] [place] [address] [place] [address] Health Maintenance Due Date Last Done Comments Hepatitis B (1 of 3 - 19+ 3-dose series) 2005 Depression Screening 01/12/2021 01/13/2020 COVID-19 Vaccine (1 - 2022-24 season) 2023 Influenza Vaccine (FLU [...] this encounter Medical Devices Implanted Type Area Client Representative Device Identifier Shelf Expiration Date Model / Serial / Lot Sut Steel 6 M654g - [id number] Implanted:Qty: 6 on 07/15/2014 at [place] [facility] [place]/A: Chest JNJ : [employer] 05/03/2018 M654G / / [id number] Graft Gelweave 8x15 [id number] - [id number] Implanted:Qty: 1 on 07/15/2014 at [place] [facility] [place] Right: Axilla [employer] : CARDIO SYS 05/03/2019 [id number] / [id number] / [id number] [place] Ptfe 6x6in X5 - [id number] Implanted:Qty: 1 on 07/15/2014 at [place] [facility] CR BARD : PERIPHERAL VASCULAR 11/14/2018 [id number] / / [id number] Graft Valved Valsalva 27mm - [id number] Implanted:Qty: 1 on 07/15/2014 at [place] [facility] N/A: Aorta [employer] 12/15/2017 [id number]-[id number] 15 / [id number] / Sut Steel 6 M654g - [id number] Implanted:Qty: 1 on 05/29/2015 by Smith Shelton MD at [place] [facility] [place] N/A: Chest JNJ : [employer] 06/02/2019 M654G / / [id number] Graft Gelweave 8x15 [id number] - [id number] - [id number] Implanted:Qty: 1 on 05/29/2015 by Smith Shelton MD at [place] [facility] [place] Right: Axilla [employer] : CARDIO SYS 05/02/2020 [id number] / [id number] / [id number] Description:implanted in rig ht axillary Graft Gelweave 8x15 [id number] - [id number] - [id number] Implanted:Qty: 1 on 05/29/2015 by Smith Shelton MD at [place] [facility] Left: Carotid [employer] : CARDIO SYS 05/02/2020 [id number] / [id number] / [id number] Gelweave Woven Vascular Prosthesis, Branched Arch Graft W/ Radiopaque Markers Implanted:Qty: 1 on 05/29/2015 by Smith Shelton MD at [place] [facility] N/A: Aorta [employer] : VASCUTEK 04/02/2020 [id number] / [id number] / [id number] Description:Diameter: 8 x 10 mm Usable Length: 20 cm +2@15 cm +2@30 cm Sut Steel 6 M654g - [id number] Implanted:Qty: 4 on 05/29/2015 by Smith Shelton MD at [place] [facility] N/A: Chest JNJ : [employer] 06/02/2019 M654G / / [id number] [place] Ptfe 6x6in X5 - [id number] Implanted:Qty: 1 on 05/29/2015 by Smith Shelton MD at [place] [facility] N/A: Aorta CR BARD : PERIPHERAL VASCULAR 12/03/2019 [id number] / / [id number] Description:felt cut to surg lazaro's desired preference Mesh Vicryl 12 X 12 Vkm-L - [id number] Implanted:Qty: 1 on 12/30/2019 by Mihir Calvo MD at [place] [facility] N/A: Abdomen JNJ : [employer] 04/02/2024 VKM-L / / [id number] Prolene Mesh - [id number] Implanted:Qty: 1 on 12/30/2019 by Mihir Calvo MD at [place] [facility] N/A: Abdomen [employer] [id number] 03/02/2023 SPM3XL / / [id number] documented as of this encounter Visit Diagnoses [...] the patient have Health Care Power of Core Driller Helper? Yes, not currently available * Full Code [...]
--- OUTSIDE RECORDS SUMMARY | 2024-05-26 16:47 | External Medical Summary | Summary of Care ---
Author Name Unknown Organization [facility] [address] [place] [address] Phone [phone] Care Team Providers Care Meat Grader Name Role Phone Unavailable Primary Care Provider Unavailabl e Reason for Referral * Precert (Within 10 days (routine)) - Authorized Specialty Diagnoses / Procedures Referred By Contac t Referred To Contact Radiology Diagnoses H/O aortic dissection Procedures CTA CHEST/ABDOMEN/PELVIS Tulio Campbell MD [address] [place] [address] Referral ID Status Reason Start Date Expiration Date V isits Requested Visits Authorized [id number] Authorized 09/15/2024 [id number] Encounter Details Date Type Department Care Team (Late st Contact Info) Description 04/15/2024 Orders Only Cardiothoracic Surg [facility] [address] [place] [address] Rosina Rose RN H/O aortic dissection* Allergies No known active allergiesdocumented as of this encounter (statuses as of 04/15/2024) Medications Medication Sig Dispensed Refills Start Date End Date Status Warfarin Sodium 5 MG Oral Tablet (Coumadin)Indication s:Status post mechanical aortic valve replacement,Anticoag ulation management encounter,correction current use of 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 Status post mechanical aortic valve replacement 07/18/2014 Thoracic aortic aneurysm 07/12/2014 DDD (degenerative disc disease), lumbar Overview: mostly L5 documented as of this encounter (statuses as of 04/15/2024) Resolved Problems Problem Noted Date Diagnosed Date [...] dissection, abdominal 07/28/2014 Acute blood loss anemia 07/07/2015 Dental caries 11/18/2023 Anxiety disorder 01/06/2024 Morbid obesity with BMI of 45.0-49.9, adult 07/19/2021 Overview: Per Obesity protocol Primary hypertension 024 documented as of this encounter (statuses as of 04/15/2024) Immunizations Name Administration Dates Next Due Haemophilius [...] No 12/29/2019 documented as of this encounter Plan of Treatment Upcoming Encounters Date Type Department Care Team (Late st Contact Info) Description 04/23/2024 11:00 AM EDT Office Visit Sleep Disorders Ctr [facility] [address] [phone] Isabella Maynard DO [address] [place] [address] 05/03/2024 6:45 PM EDT Anticoagulation [facility], Juliet Urbano [address] [place] [address] [place] [address] [facility] 58 60 [facility] [place] [address] 06/04/2024 3:50 PM EDT Telemedicine Nutrition & Weight Management, [facility] [address] [place] [address] Dulce Pace RDN [address] [place] [address] 07/13/2024 8:20 AM EDT Office Visit [address] [phone] Leonila Raygoza MD [address] [place] [address] [place] [address] 07/30/2024 8:30 AM EDT Office Visit Cardiology, [facility] [place] [address] Pepe Dupont MD [address] [place] [address] 09/02/2024 2:30 PM EDT Nutrition Services Nutrition & Weight Management, [facility] 132 [facility] [place] [address] Dulce Pace RDN [address] [facility] [place] [address] 09/02/2024 3:40 PM EDT Office Visit Nutrition & Weight Management, [facility] [place] [address] Misa Katz PA-C [facility] [place] [address] 10/26/2024 10:00 AM EST Telemedicine General Surgery, [place] [address] [place] [address] Yomi Barros PA-C [address] [place] [address] 01/05/2025 9:00 AM EST Office Visit Family [address] [phone] Leonila Raygoza MD [address] [place] [address] [place] [address] Scheduled Orders Name Type Priority Associated Diagnoses Orde r Schedule CTA CHEST/ABDOMEN/PEL VIS Medical Imaging Routine H/O aortic dissection Expected: 09/15/2024 (Approximate), Expires: 05/15/2025 Health Maintenance Due Date Last Done Comments [...] this encounter Medical Devices Implanted Type Area Tax Associate Device Identifier Shelf Expiration Date Model / Serial / Lot Sut Steel 6 M654g - [id number] Implanted:Qty: 6 on 07/15/2014 at [place] [facility] N/A: Chest JNJ : [employer] 05/03/2018 M654G / / [id number] Graft Gelweave 8x15 [id number] - [id number] Implanted:Qty: 1 on 07/15/2014 at OR [facility] [place] Right: Axilla [employer] : CARDIO SYS 05/03/2019 [id number] / [id number] / [id number] [place] Ptfe 6x6in X5 - [id number] Implanted:Qty: 1 on 07/15/2014 at OR [facility] [place] CR BARD : PERIPHERAL VASCULAR 11/14/2018 [id number] / / [id number] Graft Valved Valsalva 27mm - [id number] Implanted:Qty: 1 on 07/15/2014 at OR [facility] [place] N/A: Aorta [employer] 12/15/2017 27VAVGJ-5 15 / [id number] / Sut Steel 6 M654g - [id number] Implanted:Qty: 1 on 05/29/2015 by Smith Shelton MD at OR [facility] [place] N/A: Chest JNJ : [employer] 06/02/2019 M654G / / [id number] Graft Gelweave 8x15 [id number] - [id number] - [id number] Implanted:Qty: 1 on 05/29/2015 by Smith Shelton MD at OR [facility] [place] Right: Axilla [employer] : CARDIO SYS 05/02/2020 191210 / [id number] / [id number] Description:implanted in rig ht axillary Graft Gelweave 8x15 [id number] - [id number] - [id number] Implanted:Qty: 1 on 05/29/2015 by Smith Shelton MD at OR [facility] [place] Left: Carotid [employer] : CARDIO SYS 05/02/2020 [id number] / [id number] Gelweave Woven Vascular Prosthesis, Branched Arch Graft W/ Radiopaque Markers Implanted:Qty: 1 on 05/29/2015 by Smith Shelton MD at OR [facility] [place] N/A: Aorta [employer] : VASCUTEK 04/02/2020 [id number] / [id number] Description:Diameter: 30/12/ 8/8 x 10 mm Usable Length: 20 cm +2@15 cm +2@30 cm Sut Steel 6 M654g - [id number] Implanted:Qty: 4 on 05/29/2015 by Smith Shelton MD at OR [facility] [place] N/A: Chest JNJ : [employer] 06/02/2019 M654G / / [id number] [place] Ptfe 6x6in X5 - [id number] Implanted:Qty: 1 on 05/29/2015 by Smith Shelton MD at OR [facility] [place] N/A: Aorta CR BARD : PERIPHERAL VASCULAR 12/03/2019 [id number] / / [id number] Description:felt cut to surg lazaro's desired preference Mesh Vicryl 12 X 12 Vkm-L - [id number] Implanted:Qty: 1 on 12/30/2019 by Mihir Calvo MD at OR [facility] [place] N/A: Abdomen JNJ : [employer] 04/02/2024 VKM-L / / [id number] Prolene Mesh - [id number] Implanted:Qty: 1 on 12/30/2019 by Mihir Calvo MD at OR [facility] [place] N/A: Abdomen [employer] [id number] 03/02/2023 SPM3XL / / [id number] documented as of this encounter Visit Diagnoses Diagnosis H/O aortic dissection- Primary Personal history of other diseases of circulatory system documented in this encounter Advance Directives * [...] the patient have Health Care Power of Seismograph Helper? Yes, not currently available * Full [...]
--- OUTSIDE RECORDS SUMMARY | 2024-05-26 16:48 | External Medical Summary | Summary of Care ---
Author Name Unknown Organization [facility] Address [address] [place] [address] Phone [phone] Care Team Providers Care Supervisor Long Goods Name Role Phone Unavailable Primary Care Provider Unavailabl e Reason for Visit * Reason Comments eRx-Medication Refill Encounter Details Date Type Department Care Team (Late st Contact Info) Description 03/04/2024 Refill Family [address] [phone] Brian Guido MD [address] [place] [address] [place] [address] LBBB (left bundle branch block) Allergies No known active allergiesdocumented as of this encounter (statuses as of 03/05/2024) Medications Medication Sig Dispensed Refills Start Date End Date Status Warfarin Sodium 5 MG Oral Tablet (Coumadin)Indicati ons:Status post mechanical aortic valve replacement,Antico agulation management encounter,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 Or take as instructed by the [facility] 270 Tablet 3 06/23/2023 Active Acetaminophen 500 MG Oral Tablet (Tylenol)Indicatio ns:Morbid obesity with BMI of 50.0-59.9, adult ([facility]),Pre-operativ e examination take 2 tabs by mouth every 8 hours pain after surgery for 3 days 18 Tablet 0 07/30/2023 Active Ondansetron HCl 4 MG Oral TabletIndications: Morbid obesity with BMI of 50.0-59.9, adult (HCC),Pre-operativ e examination 1 tablet by mouth every 8 [...] 60 MG Oral Capsule Delayed Release Particles (Cymbalta)Indicati ons:Anxiety disorder due to known physiological condition,DDD (degenerative disc disease), lumbar,Generalized anxiety disorder One daily with 30 mg for dose of 90 mg 90 Capsule 2 12/22/2023 Active Omeprazole 20 MG Oral Capsule Delayed Release (PriLOSEC)Indicati ons:Gastroesophage al reflux disease with esophagitis without hemorrhage Take 1 cap by mouth daily for 90 days after surgery. 90 Capsule 0 01/06/2024 Active DULoxetine HCl 30 MG Oral Capsule Delayed Release Particles (Cymbalta)Indicati ons:Anxiety disorder due to known physiological condition TAKE ONE CAPSULE BY MOUTH EVERY DAY 90 Capsule 2 01/20/2024 Active Clopidogrel Bisulfate 75 MG Oral Tablet (pLAVix)Indication s:H/O aortic dissection TAKE ONE TABLET BY MOUTH EVERY MORNING 90 Tablet 0 02/23/2024 Active Atorvastatin Calcium 10 MG Oral Tablet (Lipitor)Indicatio ns:LBBB (left bundle branch block) TAKE ONE TABLET BY MOUTH AT BEDTIME 90 Tablet 1 03/05/2024 Active Atorvastatin Calcium 10 MG Oral Tablet (Lipitor)Indicatio ns:LBBB (left bundle branch block) take one pill by mouth at bedtime 90 Tablet 1 07/08/2023 03/05/20 24 Discontinued Hospital, Clinic, or Other Facility Administered Medication Ordered Dose Route Frequency Start Date End Date Status vitamin b-12 (Cyanocobalamin) inj 1,000 mcgIndications:S/P gastric bypass 1000 mcg IM [id number] 12/16/2023 11/16/2024 Active documented as of this encounter (statuses as of 03/05/2024) Active Problems Problem Noted Date Diagnosed Date [...] ion) 10/14/2023 Pre-operative examination 07/30/2023 [facility] OTHER*[id number] 01/20/2023 Morbid obesity 12/20/2021 Diffuse axonal brain injury 04/09/2021 Status post mechanical aortic valve replacement 07/18/2014 Thoracic aortic aneurysm 07/12/2014 DDD (degenerative disc disease), lumbar Overview: mostly L5 documented as of this encounter (statuses as of 03/05/2024) Resolved Problems Problem Noted Date Diagnosed Date [...] as of this encounter (statuses as of 03/05/2024) Immunizations Name Administration Dates Next Due Haemophilius [...] Telephone Encounter - Leonila Raygoza MD - 03/05/2024 4:16 PM EDT Signed Prescriptions: Disp Refills Atorvastatin Calcium 10 MG Oral Tablet (Li*90 Tab*1 Sig: TAKE ONE TABLET BY MOUTH AT BEDTIME Authorizing Provider: LEONILA RAYGOZA * Telephone Encounter - Era Mayo LPN - 03/05/2024 3:33 PM EDTPending Prescriptions: Disp Refills Atorvastatin Calcium 10 MG Oral Tablet [Ph*90 Tab*1 Sig: TAKE ONE TABLET BY MOUTH AT BEDTIME * Telephone Encounter - Era Mayo LPN - 03/05/2024 3:33 PM EDT Pending Prescriptions: Disp Refills Atorvastatin Calcium 10 MG Oral Tablet (L*90 Tab*1 Sig: TAKE ONE TABLET BY MOUTH AT BEDTIME Last Visit: 01/06/2024 (in office), 05/05/2023 (telemedicine) Next Visit: 07/13/2024 Last date the medication was ordered: 07/08/2023 Patient Active Problem List Diagnosis Code Thoracic aortic aneurysm I71.20 Status post mechanical aortic valve replacement Z95.2 DDD (degenerative disc disease), lumbar M51.36 Diffuse axonal brain injury (HCC) S06.2XAA Morbid obesity (HCC) E66.01 [facility] OTHER*[id number] Pre-operative examination Z01.818 S/P gastric bypass Z98.84 HFrEF (heart failure with reduced ejection fraction) (HCC) I50.20 Chronic heart failure with preserved ejection fraction (HCC) I50.32 Congenital bicuspid aortic valve Q23.1 Gastroesophageal reflux disease K21.9 TIMMY (generalized anxiety disorder) F41.1 GUILLERMO on CPAP G47.33 Hyperlipidemia E78.5 Left bundle branch block I44.7 H/O mechanical aortic valve replacement Z95.2 History of aortic dissection Z86.79 Hypertension I10 Labs: Lab Results Component Value Date/Time CREATININE [...] A1C - [facility] 4.8 05/29/2015 04:00 AM * Telephone Encounter - Era Mayo LPN - 03/05/2024 3:20 PM EDT Pending Prescriptions: Disp Refills Atorvastatin Calcium 10 MG Oral Tablet (L*90 Tab*1 Sig: TAKE ONE TABLET BY MOUTH AT BEDTIME Last Visit: 01/06/2024 (in office), 05/05/2023 (telemedicine) Next Visit: 07/13/2024 Last date the medication was ordered: 07/08/2023 Patient Active Problem List Diagnosis Code Thoracic aortic aneurysm I71.20 Status post mechanical aortic valve replacement Z95.2 DDD (degenerative disc disease), lumbar M51.36 Diffuse axonal brain injury (HCC) S06.2XAA Morbid obesity ([facility]) E66.01 [facility] OTHER*[id number] Pre-operative examination Z01.818 S/P gastric bypass Z98.84 HFrEF (heart failure with reduced ejection fraction) ([facility]) I50.20 Chronic heart failure with preserved ejection fraction ([facility]) I50.32 Congenital bicuspid aortic valve Q23.1 Gastroesophageal reflux disease K21.9 TIMMY (generalized anxiety disorder) F41.1 GUILLERMO on CPAP G47.33 Hyperlipidemia E78.5 Left bundle branch block I44.7 H/O mechanical aortic valve replacement Z95.2 History of aortic dissection Z86.79 Hypertension I10 Labs: Lab Results Component Value Date/Time CREATININE [...] A1C - [facility] 4.8 05/29/2015 04:00 AM * Telephone Encounter - Agustín [facility] - 03/05/2024 10:27 AM EDT Pending Prescriptions: Disp Refills Atorvastatin Calcium 10 MG Oral Tablet [Ph*90 Tab*1 Sig: TAKE ONE TABLET BY MOUTH AT BEDTIME * Telephone Encounter - Agustín [facility] - 03/05/2024 10:24 AM EDT Patient does not have active [facility] PCP under whom to authorize refills. Please review and refill as appropriate. Pending Prescriptions: Disp Refills Atorvastatin Calcium 10 MG Oral Tablet (L*90 Tab*1 Sig: TAKE ONE TABLET BY MOUTH AT BEDTIME Last Visit: 01/06/2024 (in office), 05/05/2023 (telemedicine) Next Visit: 07/13/2024 If no future appointments scheduled, and last appointment is greater than a year ago, please schedule patient for a follow-up appointment Last date the medication was ordered: 07/08/23 Pharmacy: [facility], [address] [place] Is this request for a controlled substance? No Patient Phone Numbers Labs: Lab Results Component [...] Care Team (Late st Contact Info) Description 03/11/2024 6:45 PM EDT Anticoagulation Pharmacy Call Center [phone] [place] [address] [facility] [address] [place] [address] 04/23/2024 11:00 AM EDT Office Visit Sleep Disorders Ctr [facility] [address] [place] [phone] Isabella Maynard DO [address] [place] [address] 06/04/2024 3:50 PM EDT Telemedicine Nutrition & Weight Management, [facility] [address] [place] [address] Dulce Pace RDN [address] [place] [address] 07/13/2024 8:20 AM EDT Office Visit Family [address] [place] [phone] Leonila Raygoza MD [address] [place] [address] [place] [address] 07/30/2024 8:30 AM EDT Office Visit Cardiology, [facility] [address] [place] [address] Pepe Dupont MD [address] [place] [address] 09/02/2024 2:30 PM EDT Nutrition Services Nutrition & Weight Management, [facility] [address] [place] [address] Dulce Pace RDN [address] [place] [address] 09/02/2024 3:40 PM EDT Office Visit Nutrition & Weight Management, [facility] [address] [place] [place] [address] Misa Katz PA-C [address] [place] [address] 10/26/2024 10:00 AM EST Telemedicine General Surgery, [address] [address] Yomi Barros PA-C [address] [place] [address] 01/05/2025 9:00 AM EST Office Visit Family Medicine [address] [phone] Leonila Raygoza MD [address] [place] [address] [place] [phone] Health Maintenance Due Date Last Done Comments Hepatitis B (1 of 3 - 19+ 3-dose series) 2005 Depression Screening 01/12/2021 01/13/2020 COVID-19 Vaccine (2022- season) 2023 Influenza Vaccine (FLU shot) (Season [...] this encounter Medical Devices Implanted Type Area Telehealth Case Manager Device Identifier Shelf Expiration Date Model / Serial / Lot Sut Steel 6 M654g - [id number] [place]planted:Qty: 6 [place] [facility] [place] Chest JNJ : [employer] 05/03/2018 M654G / / [id number] Graft Gelweave 8x15 [id number] - [id number] Implanted:Qty: 1 on 07[place]15/2014 [place] [facility] [place] Right: Axilla [employer] : CARDIO SYS 05/03/2019 [id number] / [id number] / [id number] [place] Ptfe 6x6in X5 - [id number] Implanted:Qty: 1 on 07/15/2014 [place] [facility] [place] CR BARD : PERIPHERAL VASCULAR 11/14/2018 [id number] / / [id number] Graft Valved Valsalva 27mm - [id number] Implanted:Qty: 1 on 07/15/2014 [place] [facility] [place] N/A: Aorta [employer] 12/15/2017 [id number]-5 15 / [id number] / Sut Steel 6 M654g - [id number] Implanted:Qty: 1 on 05/29/2015 by [place] Shelton MD [place] [facility] [place]A: Chest JNJ : [employer] 06/02/2019 M654G / / [id number] Graft Gelweave 8x15 [id number] - [id number] - [id number] Implanted:Qty: 1 on 05/29/2015 by [place] Shelton MD [place] [facility] [place] Right: Axilla [employer] : CARDIO SYS 05/02/2020 [id number] / [id number] Description:implanted in rig ht axillary Graft Gelweave 8x15 260430 - [id number] - [id number] Implanted:Qty: 1 on 05/29/2015 by [place] Shelton MD [place] [facility] Left: Carotid [employer] : CARDIO SYS 05/02/2020 [id number] / [id number] Gelweave Woven Vascular Prosthesis, Branched Arch Graft W/ Radiopaque Markers Implanted:Qty: 1 on 05/29/2015 by [place] Shelton MD [place] [facility] [place]A: Aorta [employer] : VASCUTEK 04/02/2020 [id number] / [id number] Description:Diameter: 30/12/ 8/8 x 10 mm Usable Length: 20 cm +2@15 cm +2@30 cm Sut Steel 6 M654g - [id number] Implanted:Qty: 4 on 05/29/2015 by [place] Shelton MD [place] [facility] [place]/A: Chest JNJ : [employer] 06/02/2019 M654G / / [id number] [place] Ptfe 6x6in X5 - [id number] Implanted:Qty: 1 on 05/29/2015 by [place] Shelton MD [place] [facility] [place]/A: Aorta CR BARD : PERIPHERAL VASCULAR 12/03/2019 [id number] / / [id number] Description:felt cut to surg lazaro's desired preference Mesh Vicryl 12 X 12 Vkm-L - [id number] Implanted:Qty: 1 on 12/30/2019 by Mihir Calvo MD [place] [facility] [place]A: Abdomen JNJ : [employer] 04/02/2024 VKM-L / / [id number] Prolene Mesh - [id number] Implanted:Qty: 1 on 12/30/2019 by Mihir Calvo MD [place] [facility] [place]/A: Abdomen [employer] [id number] 03/02/2023 SPM3XL / / [id number] documented as of this encounter Visit Diagnoses Diagnosis LBBB (left bundle branch block) Other left bundle branch block documented in this encounter Advance Directives Latest [...] the patient have Health Care Power of Fur Vault Attendant? Yes, not currently available Code Status History [...] the patient have Health Care Power of Fur Vault Attendant? No Full Code 12/29/2019 7:58 PM 12/30/2019 6:18 PM This order reflects the patients wishes and were consensually agreed upon. Question Answer Comments Discussion of Advance Directives occurred with: Not Discussed Does the patient have a Living Will? No Does the patient have Health Care Power of Fur Vault Attendant? No
--- OUTSIDE RECORDS SUMMARY | 2024-05-26 16:48 | External Medical Summary | Summary of Care ---
Author Name Unknown Organization [facility] Address [address] [place] [address] Phone [phone] Care Team Providers Care Health Safety Manager Name Role Phone Unavailable Primary Care Provider Unavailabl e Reason for Visit * Reason Onset Date Comments Appointment 03/05/2024 Encounter Details Date Type Department Care Team (Late st Contact Info) Description 03/05/2024 Telephone Nutrition & Weight Management, [facility] [address] [place] [address] Misa Katz PA-C [address] [place] [address] Appointment Allergies No known active allergiesdocumented as of this encounter (statuses as of 03/05/2024) Medications Medication Sig Dispensed Refills Start Date End Date Status Warfarin Sodium 5 MG Oral Tablet (Coumadin)Indication s:Status post mechanical aortic valve replacement,Anticoag ulation management encounter,[facility] current use of 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 Or take as instructed by the [facility] 270 Tablet 3 06/23/2023 Active Atorvastatin Calcium 10 MG Oral Tablet (Lipitor)Indications :LBBB (left bundle branch block) take one pill by mouth at bedtime 90 Tablet 1 07/08/2023 Active Acetaminophen 500 MG Oral Tablet (Tylenol)Indications [...] EVERY MORNING 90 Tablet 0 02/23/2024 Active Hospital, Clinic, or Other Facility Administered Medication Ordered Dose Route Frequency Start Date End Date Status vitamin b-12 (Cyanocobalamin) inj 1,000 mcgIndications:S/P gastric bypass 1000 mcg IM [id number] 12/16/2023 11/16/2024 Active documented as of this [...] ion) 10/14/2023 Pre-operative examination 07/30/2023 [facility] OTHER*[id number] 01/20/2023 Morbid obesity 12/20/2021 Diffuse axonal brain [...] encounter Miscellaneous Notes * Telephone Encounter - Jess Steele OSA - 03/05/2024 3:39 PM EDT Called pt to reschedule pt didn't answer lm for pt to return call. Please schedule below appt per misa. Patient did not log in for 3 month BOLD appointment-- please call to reschedule BOLD with me (40 min) documented in this encounter Plan of Treatment Upcoming Encounters Date Type Department Care Team (Late st Contact Info) Description 03/11/2024 6:45 PM EDT Anticoagulation Pharmacy Call Center [phone] [facility] [place] [address] [facility] 58 60 [facility] [place] [address] 04/23/2024 11:00 AM EDT Office Visit Sleep Disorders Ctr Justin Mahajan, [place] [address] [place] [phone] Isabella Maynard, [address] [place] [address] 06/04/2024 3:50 PM EDT Telemedicine Nutrition & Weight Management, [facility] [address] [place] [address] Dulce Pace RDN [address] [place] [address] 07/13/2024 8:20 AM EDT Office Visit Family [address] [place] [phone] Leonila Raygoza MD [address] [place] [address] [place] [address] 07/30/2024 8:30 AM EDT Office Visit Cardiology, [facility] [address] [place] [address] Pepe Dupont MD [address] [place] [address] 09/02/2024 2:30 PM EDT Nutrition Services Nutrition & Weight Management, [facility] [address] [place] [address] Dulce Pace RDN [address] [place] [address] 09/02/2024 3:40 PM EDT Office Visit Nutrition & Weight Management, [facility] [address] [place] [address] Misa Katz PA-C [address] [place] [address] 10/26/2024 10:00 AM EST Telemedicine General Surgery, [place] [address] [place] [address] Yomi Barros PA-C [address] [place] [address] 01/05/2025 9:00 AM EST Office Visit Family Medicine [address] [place] [phone] Leonila Raygoza MD [address] [place] [address] [place] [address] Health Maintenance Due Date Last Done Comments [...] this encounter Medical Devices Implanted Type Area Implementation Specialist Payroll Device Identifier Shelf Expiration Date Model / Serial / Lot Sut Steel 6 M654g - [id number] [place]planted:Qty[place] 6 [place] [facility] [place]: Chest JNJ : [employer] 05/03/2018 M654G / / [id number] Graft Gelweave 8x15 [id number] - [id number] Implanted:Qty: 1 on 07/15/2014 [place] [facility] [place]: Axilla [employer] : CARDIO SYS 05/03/2019 [id number] / [id number] / [id number] [place] Ptfe 6x6in X5 - [id number] Implanted:Qty: 1 on 07/15/2014 [place] [facility] [place] CR BARD : PERIPHERAL VASCULAR 11/14/2018 [id number] / / [id number] Graft Valved Valsalva 27mm - [id number] Implanted:Qty: 1 on 07/15/2014 [place] [facility] [place] N/A: Aorta [employer] 12/15/2017 27VAVGJ-5 15 / [id number] / Sut Steel 6 M654g - [id number] Implanted:Qty: 1 on 05/29/2015 by [place] Shelton [place] [facility] [place]A: Chest JNJ : [employer] 06/02/2019 M654G / / [id number] Graft Gelweave 8x15 [id number] - [id number] - [id number] Implanted:Qty: 1 on 05/29/2015 by [place] Shelton [place] [facility] [place] Right: Axilla [employer] : CARDIO SYS 05/02/2020 [id number] / [id number] Description:implanted in rig ht axillary Graft Gelweave 8x15 155780 - [id number] - [id number] Implanted:Qty: 1 on 05/29/2015 by [place] Shelton MD [place] [facility] [place] Left: Carotid [employer] : CARDIO SYS 05/02/2020 [id number] / [id number] Gelweave Woven Vascular Prosthesis, Branched Arch Graft W/ Radiopaque Markers Implanted:Qty: 1 on 05/29/2015 by [place] Shelton [place] [facility] [place]A: Aorta [employer] : VASCUTEK 04/02/2020 [id number] / [id number] Description:Diameter: 30/12/ 8/8 x 10 mm Usable Length: 20 cm +2@15 cm +2@30 cm Sut Steel 6 M654g - [id number] Implanted:Qty: 4 on 05/29/2015 by [place] Shelton [place] [facility] [place]A: Chest JNJ : [employer] 06/02/2019 M654G / / [id number] [place] Ptfe 6x6in X5 - [id number] Implanted:Qty: 1 on 05/29/2015 by [place] Shelton MD [place] [facility] [place]A: Aorta CR BARD : PERIPHERAL VASCULAR 12/03/2019 [id number] / / [id number] Description:felt cut to surg lazaro's desired preference Mesh Vicryl 12 X 12 Vkm-L - [id number] Implanted:Qty: 1 on 12/30/2019 by Mihir Calvo MD [place] [facility] [place]A: Abdomen JNJ : [employer] 04/02/2024 VKM-L / / [id number] Prolene Mesh - [id number] Implanted:Qty: 1 on 12/30/2019 by Mihir Calvo MD [place] [facility] [place]/A: Abdomen 3D Forms [id number] 03/02/2023 SPM3XL / / [id number] documented as of this encounter Advance Directives Latest Code Status [...] the patient have Health Care Power of Ear Nose Throat Surgeon? Yes, not currently available Code Status History [...] the patient have Health Care Power of Ear Nose Throat Surgeon? No Full Code 12/29/2019 7:58 PM 12/30/2019 6:18 PM This order reflects the patients wishes and were consensually agreed upon. Question Answer Comments Discussion of Advance Directives occurred with: Not Discussed Does the patient have a Living Will? No Does the patient have Health Care Power of Ear Nose Throat Surgeon? No
--- OUTSIDE RECORDS SUMMARY | 2024-05-26 16:49 | External Medical Summary | Summary of Care ---
Author Name Unknown Organization [facility] Address [address] [place] [address] Phone [phone] Care Team Providers Care Supervisor Felling Bucking Name Role Phone Unavailable Primary Care Provider Unavailabl e Reason for Visit * Reason Comments Follow Up Encounter Details Date Type Department Care Team (Late st Contact Info) Description 02/24/2024 2:30 PM EDT Telemedicine General Surgery, [place] [address], [place] [id number] Yomi Barros PA-C [address] [place] [address] S/P gastric bypass*; Morbid obesity (HCC); BMI 40.0-44.9, adult (HCC) Allergies No known active allergiesdocumented as of this encounter (statuses as of 02/24/2024) Medications Medication Sig Dispensed Refills Start Date End Date Status Warfarin Sodium 5 MG Oral Tablet (Coumadin)Indication s:Status post mechanical aortic valve replacement,Anticoag ulation management encounter,shelter current use of 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 Status post mechanical aortic valve replacement 07/18/2014 Thoracic aortic aneurysm 07/12/2014 DDD (degenerative disc disease), lumbar Overview: mostly L5 documented as of this encounter (statuses as of 02/24/2024) Resolved Problems Problem Noted Date Diagnosed Date [...] as of this encounter (statuses as of 02/24/2024) Immunizations Name Administration Dates Next Due Haemophilius [...] as of this encounter Progress Notes * Yomi Barros PA-C - 02/24/2024 2:39 PM EDT [facility] Follow up Visit DATE: 02/24/2024 Last office visit 07/30/2023 (in office), 10/21/2023 (telemedicine) Deep [place]ong [id number] Age: [age] year old PCP: Brian Guido MD Referral: Misa Katz PA-C MIS Surgical History Gastric restrictive procedure with gastric bypass and Heidy en Y gastroenterosotomy 10/14/[address] Washington Upper GI endoscopy Biopsy of liver, wedge Modifier 22: Significant lysis of adhesions and a small bowel injury requiring resection requiring extra time, mental and physical effort. Final Path: A. Segment of Small Bowel, resection: Benign small intestinal tissue with serosal adhesion and focal hemorrhage The surgical resection margins are viable B. Liver, wedge biopsy: Minimal macrovesicular steatosis, less than 5% No significant fibrosis See microscopic description Patient location: HOME. I was in a hospital or clinic location. After connecting through [employer],patient was verified with two unique identifiers. Patient (or authorized legal credit representative) was then informed that this was a Telemedicine visit and being conducted confidentially over secure lines. Methods to assure confidentiality were taken. Patient acknowledged consent and understanding of pr ivacy and security of the Telemedicine visit. The patient agreed to participate. HPI 02/24/2024: 4 months post op RYGB. Doing well post op. Stopped PPI at 90 days post op per protocol but has had to take it a few times over the past month. HPI 10/21/2023: Excellent progress 7 days post op RYGB. Tolerating a stage 2 diet. Has visit with Nutrition and Weight Management in 2 days. The patient's postoperative outpatient narcotic requirement was: Used none Were remaining narcotic pain medications disposed of at approved location?: N/A Abdominal pain? NO Has NO nausea, NO vomiting. Complains of NO fever and NO chills. Bowel movements are moving normally. Patient completed post-discharge Lovenox (enoxaparin)? Yes, transitioned over back to coumadin Any heartburn or regurgitation: NO: Preop NO Are you smoking or using tobacco? NO; Are you exercising? YES walking; DIET is presently a Stage 2 Do you have satiety with small meals. YES ADVERSE EVENTS Was there a postoperative Adverse Event? No Amount of blood transfused within 72 hours of surgery start? 0 units INTRAOP: No PREDISCHARGE: No POST DISCHARGE : No Was there a METABOLIC post-operative adverse event? No Amount of blood transfused within 72 hours of surgery start? 0 units READMISSION: Within 30 days? No. Readmission in 90 days? No Total number of readmissions within 90 days = 0 Unplanned ICU Admission within 30 days postop; NO; Transfer to acute care hospital within 30 days postop; NO; REOPERATION: Abdominal: 0-NONE Other: 0-NONE STUDIES: Was a swallow study performed the day of or the day after the procedure? No Was the anastomosis checked with a provocative test to assess for leak? Yes Current Outpatient Medications Medication Sig Dispense Refill Warfarin Sodium 5 MG Oral Tablet (Coumadin) Take 2-3 Tablets by mouth every evening. Or take as instructed by the [facility] 270 Tablet 3 Atorvastatin Calcium 10 MG Oral Tablet (Lipitor) take one pill by mouth at bedtime 90 Tablet 1 Acetaminophen 500 MG Oral Tablet (Tylenol) take 2 tabs by mouth every 8 hours pain after surgery for 3 days 18 Tablet 0 Ondansetron HCl 4 MG Oral Tablet 1 tablet by mouth every 8 hours as needed for nausea after surgery. 30 Tablet 1 Torsemide 10 MG Oral Tablet (Demadex) Take 1 Tablet by mouth in the morning. 1 Tablet 0 Losartan Potassium 50 MG Oral Tablet (Cozaar) Take 1 Tablet by mouth in the morning and 1 Tablet before bedtime. 180 Tablet 3 Metoprolol Tartrate 25 MG Oral Tablet (Lopressor) Take 3 Tablets by mouth in the morning and 3 Tablets before bedtime. 180 Tablet 3 DULoxetine HCl 60 MG Oral Capsule Delayed Release Particles (Cymbalta) One daily with 30 mg for dose of 90 mg 90 Capsule 2 Omeprazole 20 MG Oral Capsule Delayed Release (PriLOSEC) Take 1 cap by mouth daily for 90 days after surgery. 90 Capsule 0 DULoxetine HCl 30 MG Oral Capsule Delayed Release Particles (Cymbalta) TAKE ONE CAPSULE BY MOUTH EVERY DAY 90 Capsule 2 Clopidogrel Bisulfate 75 MG Oral Tablet (pLAVix) TAKE ONE TABLET BY MOUTH EVERY MORNING 90 Tablet 0 Current Facility-Administered Medications Medication Dose Route Frequency Provider Last Rate Last Admin vitamin b-12 (Cyanocobalamin) inj 1,000 mcg 1,000 mcg Intramuscular Q12 Weeks Samantha Cota PA-C 1,000 mcg at 12/16/23 1108 MVI YES Ca++ YES B12 YES Allergies as of 02/24/2024 (No Known Allergies) PHYSICAL EXAM: Highest weight within one year at [facility]: 380 lbs; Date: 10/18/22 Weight closest to surgery: 379 lbs; Date: 10/14/2023 02/24/2024: self reported wt 298 lbs, ht 72 inches, BMI 40.4 10/21/2023: none reported 07/30/2023: BP 146/67 | Pulse 62 | Temp 35.3 C (95.5 F) (Infrared) | Ht 1.829 m (6') | Wt (!) 165.5 kg (364 lb 12.8 oz) | BMI 49.48 kg/m | BSA 2.9 m General: Alert and appropriate. Well-appearing and in no distress Impression: Excellent progress after, Gastric restrictive procedure with gastric bypass and Heidy en Y gastroenterosotomy 10/14/[address] Washington Upper GI endoscopy Biopsy of liver, wedge Modifier 22: Significant lysis of adhesions and a small bowel injury requiring resection requiring extra time, mental and physical effort. Would you have this surgery again? YES 2. Obese with BMI 40.4 Plan: 1) Diet: Stage 4 2) Activity: Unrestricted 3) Follow up visit scheduled in Bariatric Surgical Clinic: 8 months 4) continue follow up with Nutrition and Weight Management as directed I spent a total of 20-29 minutes (exact time 20 mins) on the date of service in preparation, delivery, and documentation of the care provided to Deep [facility] excluding any time spent in the performance of separately billed services. Yomi Barros PA-C Bariatric and Foregut Surgery [facility] 02/24/2024 documented in this encounter Plan of Treatment Upcoming Encounters Date Type Department Care Team (Late st Contact Info) Description 02/25/2024 9:00 AM EDT Telemedicine Psychology, [place] [address] [place] [address] Daisy Proctor [facility] [address] [place] [address] 03/05/2024 11:20 AM EDT Telemedicine Nutrition & Weight Management, [facility] [address] [place] [address] Misa Katz PA-C [address] [place] [address] 03/11/2024 6:45 PM EDT [facility] Call Center [address] [facility] [place] [address] [facility] 58 60 [facility] [place] [address] 04/23/2024 11:00 AM EDT Office Visit Sleep Disorders Ctr [facility] [address] [place] [phone] Isabella Maynard DO [address] [place] [address] 06/04/2024 3:50 PM EDT Telemedicine Nutrition & Weight Management, [facility] [address] [place] [address] Dulce Pace RDN [address] [place] [address] 07/13/2024 8:20 AM EDT Office Visit [address] [phone] Leonila Raygoza MD [address] [place] [address] [place] [address] 07/30/2024 8:30 AM EDT Office Visit Cardiology, [facility] [address] [place] [address] Pepe Dupont MD [address] [place] [address] 09/02/2024 2:30 PM EDT Nutrition Services Nutrition & Weight Management, [facility] [address] [place] [address] Dulce Pace RDN [address] [place] [address] 09/02/2024 3:40 PM EDT Office Visit Nutrition & Weight Management, [facility] [address] [place] [address] Misa Katz PA-C [address] [place] [address] 01/05/2025 9:00 AM EST Office Visit [address] [phone] Leonila Raygoza MD [address] [place] [address] [place] [address] Health Maintenance Due Date Last Done Comments Hepatitis B (1 of 3 - 19+ 3-dose series) 2005 Depression Screening 01/12/2021 01/13/2020 COVID-19 Vaccine ( season) 2023 Influenza Vaccine (FLU shot) (Season [...] this encounter Medical Devices Implanted Type Area Healthcare Recruiter Device Identifier Shelf Expiration Date Model / Serial / Lot Sut Steel 6 M654g - [id number] Implanted:Qty: 6 on 07/15/2014 at OR [facility] [place] N/A: Chest JNJ : [employer] 05/03/2018 M654G / / [id number] Graft Gelweave 8x15 [id number] - [id number] Implanted:Qty: 1 on 07/15/2014 at OR [facility] [place] Right: Axilla [employer] : CARDIO SYS 05/03/2019 [id number] / [id number] / [id number] [place] Ptfe 6x6in X5 - [id number] Implanted:Qty: 1 on 07/15/2014 at OR [facility] [place] CR BARD : PERIPHERAL VASCULAR 11/14/2018 [id number] / / [id number] Graft Valved Valsalva 27mm - [id number] Implanted:Qty: 1 on 07/15/2014 at OR [facility] [place] N/A: Aorta [employer] 12/15/2017 [id number]-5 15 / [id number] / Sut Steel 6 M654g - [id number] Implanted:Qty: 1 on 05/29/2015 by Smith Shelton MD at OR [facility] [place] N/A: Chest JNJ : [employer] 06/02/2019 M654G / / [id number] Graft Gelweave 8x15 539842 - [id number] - [id number] Implanted:Qty: 1 on 05/29/2015 by Smith Shelton MD at OR [facility] [place] Right: Axilla [employer] : CARDIO SYS 05/02/2020 [id number] / [id number] Description:implanted in rig ht axillary Graft Gelweave 8x15 085087 - [id number] - [id number] Implanted:Qty: 1 on 05/29/2015 by Smith Shelton MD at OR [facility] [place] Left: Carotid [employer] : CARDIO SYS 05/02/2020 [id number] / [id number] Gelweave Woven Vascular Prosthesis, Branched Arch Graft W/ Radiopaque Markers Implanted:Qty: 1 on 05/29/2015 by Smith Shelton MD at OR [facility] [place] N/A: Aorta [employer] : VASCUTEK 04/02/2020 [id number] / [id number] Description:Diameter: 30/12/ 8/8 x 10 mm Usable Length: 20 cm +2@15 cm +2@30 cm Sut Steel 6 M654g - [id number] Implanted:Qty: 4 on 05/29/2015 by Smith Shelton MD at OR [facility] [place] N/A: Chest JNJ : [employer] 06/02/2019 M654G / / [id number] [place] Ptfe 6x6in X5 - [id number] Implanted:Qty: 1 on 05/29/2015 by Smith Shelton MD at OR [facility] [place] N/A: Aorta CR BARD : PERIPHERAL VASCULAR 12/03/2019 [id number] / / [id number] Description:felt cut to surg lazaro's desired preference Mesh Vicryl 12 X 12 Vkm-L - [id number] Implanted:Qty: 1 on 12/30/2019 by Mihir Calvo MD at OR [facility] [place] N/A: Abdomen JNJ : [employer] 04/02/2024 VKM-L / / [id number] Prolene Mesh - [id number] Implanted:Qty: 1 on 12/30/2019 by Mihir Calvo MD at OR [facility] [place] N/A: Abdomen [place] [id number] 03/02/2023 [id number] / / [id number] documented as of this encounter Visit Diagnoses Diagnosis S/P gastric bypass- Primary Bariatric surgery status Morbid obesity (HCC) Morbid obesity BMI 40.0-44.9, adult (HCC) Body Mass Index 40.0-44.9, adult documented in this encounter Advance Directives Latest [...] the patient have Health Care Power of Industrial Maintenance Repairer? Yes, not currently available Code Status History [...] the patient have Health Care Power of Industrial Maintenance Repairer? No Full Code 12/29/2019 7:58 PM 12/30/2019 6:18 PM This order reflects the patients wishes and were consensually agreed upon. Question Answer Comments Discussion of Advance Directives occurred with: Not Discussed Does the patient have a Living Will? No Does the patient have Health Care Power of Industrial Maintenance Repairer? No"
--- OUTSIDE RECORDS SUMMARY | 2024-05-26 16:49 | External Medical Summary | Summary of Care ---
Author Name Unknown Organization [facility] Address [address] [place] [address] Phone [phone] Care Team Providers Care Stem Maker Name Role Phone Unavailable Primary Care Provider Unavailabl e Encounter Details Date Type Department Care Team (Late st Contact Info) Description 03/05/2024 11:20 AM EDT Telemedicine Nutrition & Weight Management, [facility] [place] [address] Misa Katz PA-C [address] [place] [address] Morbid obesity due to excess calories (HCC)* Allergies No known active allergiesdocumented as of this encounter (statuses as of 03/05/2024) Medications Medication Sig Dispensed Refills Start Date End Date Status Warfarin Sodium 5 MG Oral Tablet (Coumadin)Indication s:Status post mechanical aortic valve replacement,Anticoag ulation management encounter,long term care pharmacist current use of 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 Or take as instructed by the [facility] 270 Tablet 3 06/23/2023 [...] 1,000 mcgIndications:S/P gastric bypass 1000 mcg IM [id number] 12/16/2023 11/16/2024 Active documented as of this [...] ion) 10/14/2023 Pre-operative examination 07/30/2023 MICHAEL RESEARCH OTHER*[id number] 01/20/2023 Morbid obesity 12/20/2021 Diffuse axonal brain [...] as of this encounter Progress Notes * Misa Katz PA-C - 03/05/2024 11:20 AM EDT Patient did not log in for visit I did call his number and left a message to log in or call back He did not log in Will ask scheduling to reach out to reschedule appointment documented in this encounter Plan of Treatment Upcoming Encounters Date Type Department Care Team (Late st Contact Info) Description 03/11/2024 6:45 PM EDT Anticoagulation Pharmacy Call Center WB [address] [facility] [place] [address] [facility] 58 60 [facility] [place] [address] 04/23/2024 11:00 AM EDT Office Visit Sleep Disorders Ctr [facility] [address] [place] [phone] Isabella Maynard, [address] [place] [address] 06/04/2024 3:50 PM EDT Telemedicine Nutrition & Weight Management, [facility] [address] [place] [address] Dulce Pace RDN [address] [place] [address] 07/13/2024 8:20 AM EDT Office Visit [address] [phone] Leonila Raygoza MD [address] [place] [address] [place] [address] 07/30/2024 8:30 AM EDT Office Visit Cardiology, [facility] [address] [place] [address] Pepe Dupont MD [address] [place] [address] 09/02/2024 2:30 PM EDT Nutrition Services Nutrition & Weight Management, [facility] [address] [place] [address] Dulce Pace RDN [address] [place] [address] 09/02/2024 3:40 PM EDT Office Visit Nutrition & Weight Management, [facility] [address] [place] [address] Misa Katz PA-C [address] [place] [address] 10/26/2024 10:00 AM EST Telemedicine General Surgery, [place] [address] [place] [address] Yomi Barros PA-C [address] [place] [address] 01/05/2025 9:00 AM EST Office Visit Family [address] [place] [phone] Leonila Raygoza MD [address] [place] [address] [place] [address] Health Maintenance Due Date Last Done Comments [...] this encounter Medical Devices Implanted Type Area Design Analyst Device Identifier Shelf Expiration Date Model / Serial / Lot Sut Steel 6 M654g - [id number] Implanted:Qty: 6 on 07/15/2014 at OR [facility] [place] N/A: Chest JNJ : [employer] 05/03/2018 M654G / / [id number] Graft Gelweave 8x15 [id number] - [id number] Implanted:Qty: 1 on 07/15/2014 at OR [facility] [place] Right: Axilla [employer] : CARDIO SYS 05/03/2019 [id number] / [id number] / [id number] [place] Ptfe 6x6in X5 - [id number] Implanted:Qty: 1 on 07/15/2014 at OR [facility] [place] CR BARD : PERIPHERAL VASCULAR 11/14/2018 [id number] / / [id number] Graft Valved Valsalva 27mm - [id number] Implanted:Qty: 1 on 07/15/2014 at OR [facility] [place] N/A: Aorta [employer] 12/15/2017 27VAVGJ-5 15 / [id number] / Sut Steel 6 M654g - [id number] Implanted:Qty: 1 on 05/29/2015 by Smith Shelton MD at OR [facility] [place] N/A: Chest JNJ : [employer] 06/02/2019 M654G / / [id number] Graft Gelweave 8x15 057024 - [id number] - [id number] Implanted:Qty: 1 on 05/29/2015 by Smith Shelton MD at OR [facility] [place] Right: Axilla [employer] : CARDIO SYS 05/02/2020 [id number] / [id number] Description:implanted in rig ht axillary Graft Gelweave 8x15 724259 - [id number] - [id number] Implanted:Qty: 1 on 05/29/2015 by Smith Shelton MD at OR [facility] [place] Left: Carotid [employer] : CARDIO SYS 05/02/2020 284139 / [id number] Gelweave Woven Vascular Prosthesis, Branched Arch Graft W/ Radiopaque Markers Implanted:Qty: 1 on 05/29/2015 by Smith Shelton MD at OR [facility] [place] N/A: Aorta [employer] : VASCUTEK 04/02/2020 [id number] / [id number] Description:Diameter: 8 x 10 mm Usable Length: 20 cm +2@15 cm +2@30 cm Sut Steel 6 M654g - [id number] Implanted:Qty: 4 on 05/29/2015 by Smith Shelton MD at OR [facility] [place] N/A: Chest JNJ : [employer] 06/02/2019 M654G / / [id number] [place] Ptfe 6x6in X5 - [id number] Implanted:Qty: 1 on 05/29/2015 by Smith Shelton MD at OR [facility] [place] N/A: Aorta CR BARD : PERIPHERAL VASCULAR 12/03/2019 [id number] / / [id number] Description:felt cut to surg lazaro's desired preference Mesh Vicryl 12 X 12 Vkm-L - [id number] Implanted:Qty: 1 on 12/30/2019 by Mihir Calvo MD at OR [facility] [place] N/A: Abdomen JNJ : [employer] 04/02/2024 VKM-L / / [id number] Prolene Mesh - [id number] Implanted:Qty: 1 on 12/30/2019 by Mihir Calvo MD at OR [facility] [place] N/A: Abdomen [employer] [id number] 03/02/2023 SPM3XL / / [id number] documented as of this encounter Visit Diagnoses Diagnosis Morbid obesity due to excess calories (HCC)- Primary documented in this encounter Advance Directives Latest [...] the patient have Health Care Power of Electric Power Line Examiner? Yes, not currently available Code Status History [...] the patient have Health Care Power of Electric Power Line Examiner? No Full Code 12/29/2019 7:58 PM 12/30/2019 6:18 PM This order reflects the patients wishes and were consensually agreed upon. Question Answer Comments Discussion of Advance Directives occurred with: Not Discussed Does the patient have a Living Will? No Does the patient have Health Care Power of Electric Power Line Examiner? No
--- OUTSIDE RECORDS SUMMARY | 2024-05-26 16:49 | External Medical Summary | Summary of Care ---
Author Name Unknown Organization [facility] Address [address] [place] [address] Phone [phone] Care Team Providers Care Bartender Helper Name Role Phone Unavailable Primary Care Provider Unavailabl e Reason for Visit * Reason Comments Dosage Adjustment Via Phone (anticoag Cl inic) Encounter Details Date Type Department Care Team (Latest Contact Info) Description 02/11/2024 6:45 PM EDT Anticoagulation Pharmacy Call Center [address] [place] [address] 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 Or take as instructed by the [facility] 270 Tablet 3 06/23/2023 Active Atorvastatin Calcium 10 MG Oral Tablet (Lipitor)Indications :LBBB (left bundle branch block) take one pill by mouth at bedtime 90 Tablet 1 07/08/2023 Active Clopidogrel Bisulfate 75 MG Oral Tablet (pLAVix)Indications: H/O aortic dissection Take 1 Tablet by mouth in the morning. 90 Tablet 1 07/08/2023 Active Acetaminophen 500 MG Oral Tablet (Tylenol)Indications :Morbid obesity with BMI of 50.0-59.9, adult ([facility]),Pre-operative examination take 2 tabs by mouth every 8 hours pain after surgery for 3 days 18 Tablet 0 07/30/2023 Active Ondansetron HCl 4 MG Oral TabletIndications:Mo rbid obesity with BMI of 50.0-59.9, adult ([facility]),Pre-operative examination 1 tablet by mouth every [...] EVERY DAY 90 Capsule 2 01/20/2024 Active Hospital, Clinic, or Other Facility Administered Medication Ordered Dose Route Frequency Start Date End Date Status vitamin b-12 (Cyanocobalamin) inj 1,000 mcgIndications:S/P gastric bypass 1000 mcg IM [id number] 12/16/2023 11/16/2024 Active documented as of this encounter (statuses as of 02/11/2024) Active Problems Problem Noted Date Diagnosed Date [...] ion) 10/14/2023 Pre-operative examination 07/30/2023 MICHAEL RESEARCH OTHER*[id number] 01/20/2023 Morbid obesity 12/20/2021 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 Clinic will follow up in 4 weeks unless resulted sooner. Last INR completed on 12/16/2023 Thank you, Yanet Varma CPhT Blocker Polishing [facility] (formerly telepharmacy) 02/11/2024,7:27 AM documented in this encounter Plan of Treatment Upcoming Encounters Date Type Department Care Team (Late st Contact Info) Description 02/12/2024 8:00 AM EDT Telemedicine Psychology, [address] [phone] [facility] [place], [place] [phone] 02/24/2024 2:30 PM EDT Telemedicine General Surgery, [place] [address] [place], [place] [phone] Yomi Barros PA-C [facility] [address] [place], [place] [phone] 02/25/2024 9:00 AM EDT Telemedicine Psychology, [place] [address] [place] [address] Daisy Proctor, [facility] [address] [place] [address] 03/05/2024 11:20 AM EDT Telemedicine Nutrition & Weight Management, [facility] [address] [facility] [place] [address] Misa Katz PA-C [address] [facility] [place] [address] 03/11/2024 6:45 PM EDT [facility] Call Center [address] [place] [address] [facility], [facility] [address] [place] [address] 04/23/2024 11:00 AM EDT Office Visit Sleep Disorders Ctr [facility] [address] [facility] [place] [phone] Isabella Maynard DO [address] [facility] [place] [address] 06/04/2024 3:50 PM EDT Telemedicine Nutrition & Weight Management, [facility] [address] [facility] [place] [address] Dulce Pace RDN 132 [facility] [place] [address] 07/13/2024 8:20 AM EDT Office Visit Family Medicine [address] [place] [phone] Leonila Raygoza MD [address] [place] [address] [place] [address] 07/30/2024 8:30 AM EDT Office Visit Cardiology, [facility] [address] [facility] [place] [address] Pepe Dupont MD [address] [place] [address] 09/02/2024 2:30 PM EDT Nutrition Services Nutrition & Weight Management, [facility] [address] [place] [address] Dulce Pace RDN [address] [facility] [place] [place] [address] 09/02/2024 3:40 PM EDT Office Visit Nutrition & Weight Management, [facility] [address] [place] [address] Misa Katz PA-C [address] [facility] [place] [place] [address] 01/05/2025 9:00 AM EST Office Visit Family Medicine [address] [phone] Leonila Raygoza MD [address] [place] [address] [place] [address] Health Maintenance Due Date Last Done Comments [...] this encounter Medical Devices Implanted Type Area Commercial Project Manager Device Identifier Shelf Expiration Date Model / Serial / Lot Sut Steel 6 M654g - [id number] Implanted:Qty: 6 on 07/15/2014 at OR [facility] [place] N/A: Chest JNJ : [employer] 05/03/2018 M654G / / [id number] Graft Gelweave 8x15 [id number] - [id number] Implanted:Qty: 1 on 07/15/2014 at OR [facility] [place] Right: Axilla [employer] : CARDIO SYS 05/03/2019 [id number] / [id number] / [id number] [place] Ptfe 6x6in X5 - [id number] Implanted:Qty: 1 on 07/15/2014 at OR [facility] BARD : PERIPHERAL VASCULAR 11/14/2018 [id number] / / [id number] Graft Valved Valsalva 27mm - [id number] Implanted:Qty: 1 on 07/15/2014 at OR [facility] [place] N/A: Aorta [employer] 12/15/2017 [id number] / [id number] / Sut Steel 6 M654g - [id number] Implanted:Qty: 1 on 05/29/2015 by Smith Shelton MD at OR [facility] [place] N/A: Chest JNJ : [employer] 06/02/2019 M654G / / [id number] Graft Gelweave 8x15 [id number] - [id number] - [id number] Implanted:Qty: 1 on 05/29/2015 by Smith Shelton MD at OR [facility] [place] Right: Axilla [employer] : [employer] 05/02/2020 [id number] / [id number] Description:implanted in rig ht axillary Graft Gelweave 8x15 [id number] - [id number] - [id number] Implanted:Qty: 1 on 05/29/2015 by Smith Shelton MD at OR [facility] [place] Left: Carotid [employer] : [employer] 05/02/2020 [id number] / [id number] Gelweave Woven Vascular Prosthesis, Branched Arch Graft W/ Radiopaque Markers Implanted:Qty: 1 on 05/29/2015 by Smith Shelton MD at OR [facility] [place] N/A: Aorta [employer] : VASCUTEK 04/02/2020 [id number] / [id number] Description:Diameter: 30/ 8/8 x 10 mm Usable Length: 20 cm +2@15 cm +2@30 cm Sut Steel 6 M654g - [id number] Implanted:Qty: 4 on 05/29/2015 by Smith Shelton MD at OR [facility] [place] N/A: Chest JNJ : [employer] 06/02/2019 M654G / / [id number] [place] Ptfe 6x6in X5 - [id number] Implanted:Qty: 1 on 05/29/2015 by Smith Shelton MD at OR [facility] [place] N/A: Aorta CR BARD : PERIPHERAL VASCULAR 12/03/2019 [id number] / / [id number] Description:felt cut to surg lazaro's desired preference Mesh Vicryl 12 X 12 Vkm-L - [id number] Implanted:Qty: 1 on 12/30/2019 by Mihir Calvo MD at OR [facility] [place] N/A: Abdomen JNJ : [employer] 04/02/2024 VKM-[id number] / / [id number] Prolene Mesh - [id number] Implanted:Qty: 1 on 12/30/2019 by Mihir Calvo MD at OR [facility] [place] N/A: Abdomen Zipano [id number] 03/02/2023 [id number] / / [id number] documented as of this encounter Visit Diagnoses Diagnosis Status post mechanical aortic valve replacement- Primary Pre-operative examination Preoperative examination, unspecified Morbid obesity (HCC) Morbid obesity documented in this encounter Advance Directives Latest [...] the patient have Health Care Power of Respiratory Clinician? Yes, not currently available Code Status History [...] the patient have Health Care Power of Respiratory Clinician? No Full Code 12/29/2019 7:58 PM 12/30/2019 6:18 PM This order reflects the patients wishes and were consensually agreed upon. Question Answer Comments Discussion of Advance Directives occurred with: Not Discussed Does the patient have a Living Will? No Does the patient have Health Care Power of Respiratory Clinician? No
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
--- OUTSIDE RECORDS SUMMARY | 2024-05-26 16:49 | External Medical Summary | Summary of Care ---
Author Name Unknown Organization [facility] Address [address] [place] [address] Phone [phone] Care Team Providers Care Receiving Manager Name Role Phone Unavailable Primary Care Provider Unavailabl e Reason for Visit * Reason Onset Date Comments Forms Request 11/06/2023 Encounter Created in Error 11/06/2023 Encounter Details Date Type Department Care Team (Late st Contact Info) Description 11/06/2023 Telephone Family Medicine [address] [phone] Brian Guido MD [address] [place], [place] [address] [address] Forms Request; Encounter Created in Error Allergies No known active allergiesdocumented as of this encounter (statuses as of 02/05/2024) Medications Medication Sig Dispensed Refills Start Date End Date Status Warfarin Sodium 5 MG Oral Tablet (Coumadin)Indication s:Status post mechanical aortic valve replacement,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 Or take as instructed by the [facility] 270 Tablet 3 [...] :Morbid obesity with BMI of 50.0-59.9, adult (FORM[facility]LY [facility]),Pre-operative examination take 2 tabs by mouth every 8 hours pain after surgery for 3 days 18 Tablet 0 07/30/2023 Active Ondansetron HCl 4 MG Oral TabletIndications:Mo rbid obesity with BMI of 50.0-59.9, adult ([facility]),Pre-operative examination 1 tablet by mouth every 8 hours as needed for nausea after surgery. 30 Tablet 1 07/30/2023 Active Torsemide 10 MG Oral Tablet (Demadex) Take 1 Tablet by mouth in the morning. 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 Status post mechanical aortic valve replacement 07/18/2014 Thoracic aortic aneurysm 07/12/2014 DDD (degenerative disc disease), lumbar Overview: mostly L5 documented as of this encounter (statuses as of 02/05/2024) Resolved Problems Problem Noted Date Diagnosed Date [...] as of this encounter (statuses as of 02/05/2024) Immunizations Name Administration Dates Next Due Haemophilius [...] encounter Miscellaneous Notes * Telephone Encounter - Moniuqe Doe OSA - 11/06/2023 12:06 PM EST Error documented in this encounter Plan of Treatment Upcoming Encounters Date Type Department Care Team (Late st Contact Info) Description 02/11/2024 6:45 PM EDT Anticoagulation Pharmacy Call Center [facility] [phone] [place] [address] [facility], [facility] 58 60 [facility] [place] [address] 02/12/2024 8:00 AM EDT Telemedicine Psychology, [place] [address] [place] [address] Daisy Proctor, [facility] [address] [place] [address] 02/24/2024 2:30 PM EDT Telemedicine General Surgery, [place] [address] [place] [address] Yomi Barros PA-C [address] [place] [address] 02/25/2024 9:00 AM EDT Telemedicine Psychology, [place] [address] [place] [address] Daisy Proctor, [facility] [address] [place] [address] 03/05/2024 11:20 AM EDT Telemedicine Nutrition & Weight Management, [facility] [address] [place] [address] Misa Katz PA-C [address] [place] [address] 04/23/2024 11:00 AM EDT Office Visit Sleep Disorders [facility] [address] [place] [phone] Isabella Maynard DO [address] [place] [address] 06/04/2024 3:50 PM EDT Telemedicine Nutrition & Weight Management, [facility] [address] [place] [address] Dulce Pace RDN [address] [place] [address] 07/13/2024 8:20 AM EDT Office Visit [address] [phone] Leonila Raygoza MD [address] [place] [address] [place] [address] 07/30/2024 8:30 AM EDT Office Visit Cardiology, [facility] [address] [place] [address] Pepe Dupont MD [address] [place] [address] 09/02/2024 2:30 PM EDT Nutrition Services Nutrition & Weight Management, [facility] [address] [place] [address] Dulce Pace RDN [address] [place] [address] 09/02/2024 3:40 PM EDT Office Visit Nutrition & Weight Management, [facility] [address] [place] [address] Misa Katz PA-C [address] [place] [address] 01/05/2025 9:00 AM EST Office Visit [address] [phone] Leonila Raygoza MD [address] [place] [address] [place] [address] Health Maintenance Due Date Last Done Comments Hepatitis B (1 of 3 - 19+ 3-dose series) 2005 Depression Screening 01/12/2021 01/13/2020 COVID-19 Vaccine ( - season) 2023 Influenza Vaccine (FLU shot) (Season [...] this encounter Medical Devices Implanted Type Area Business Services Director Device Identifier Shelf Expiration Date Model / Serial / Lot Sut Steel 6 M654g - [id number] [place]ed:Q[place] 6 [place] [facility] Chest JNJ : [employer] 05/03/2018 M654G / / [id number] Graft Gelweave 8x15 [id number] - [id number] Implanted:Qty: 1 on 07/15/2014 [place] [facility]: Axilla [employer] : CARDIO SYS 05/03/2019 [id number] / [id number] / [id number] [place] Ptfe 6x6in X5 - [id number] Implanted:Qty: 1 on 07/15/2014 [place] [facility] CR BARD : PERIPHERAL VASCULAR 11/14/2018 [id number] / / [id number] Graft Valved Valsalva 27mm - [id number] Implanted:Qty: 1 on 07/15/2014 [place] [facility] N/A: Aorta [employer] 12/15/2017 [id number]-5 15 / [id number] / Sut Steel 6 M654g - [id number] Implanted:Qty: 1 on 05/29/2015 by Smith Shelton MD [place] [facility]/A: Chest JNJ : [employer] 06/02/2019 M654G / / [id number] Graft Gelweave 8x15 066861 - [id number] - [id number] Implanted:Qty: 1 on 05/29/2015 by Smith Shelton MD [place] [facility]: Axilla [employer] : CARDIO SYS 05/02/2020 [id number] / [id number] / [id number] Description:implanted in rig ht axillary Graft Gelweave 8x15 733687 - [id number] - [id number] Implanted:Qty: 1 on 05/29/2015 by Smith Shelton MD [place] [facility] Left: Carotid [employer] : CARDIO SYS 05/02/2020 [id number] / [id number] Gelweave Woven Vascular Prosthesis, Branched Arch Graft W/ Radiopaque Markers Implanted:Qty: 1 on 05/29/2015 by Smith Shelton MD [place] [facility]/A: Aorta [employer] : VASCUTEK 04/02/2020 [id number] / [id number] Description:Diameter: 30/12/ 8/8 x 10 mm Usable Length: 20 cm +2@15 cm +2@30 cm Sut Steel 6 M654g - [id number] Implanted:Qty: 4 on 05/29/2015 by Smith Shelton MD [place] [facility] [place]/A: Chest JNJ : [employer] 06/02/2019 M654G / / [id number] [place] Ptfe 6x6in X5 - [id number] Implanted:Qty: 1 on 05/29/2015 by Smith Shelton MD [place] [facility] [place]/A: Aorta CR BARD : PERIPHERAL VASCULAR 12/03/2019 [id number] / / [id number] Description:felt cut to surg lazaro's desired preference Mesh Vicryl 12 X 12 Vkm-L - [id number] Implanted:Qty: 1 on 12/30/2019 by Mihir Calvo MD [place] [facility] [place]/A: Abdomen JNJ : [employer] 04/02/2024 VKM-L / / [id number] Prolene Mesh - [id number] Implanted:Qty: 1 on 12/30/2019 by Mihir Calvo [place] [facility] [place]/A: Abdomen [id number] [id number] 03/02/2023 [id number] / / [id number] documented as of this encounter Advance Directives [...] the patient have Health Care Power of Sterilizer Machine Operator? Yes, not currently available Code Status History [...] the patient have Health Care Power of Sterilizer Machine Operator? No Full Code 12/29/2019 7:58 PM 12/30/2019 6:18 PM This order reflects the patients wishes and were consensually agreed upon. Question Answer Comments Discussion of Advance Directives occurred with: Not Discussed Does the patient have a Living Will? No Does the patient have Health Care Power of Sterilizer Machine Operator? No
--- OUTSIDE RECORDS SUMMARY | 2024-05-26 16:49 | External Medical Summary | Summary of Care ---
Author Name Unknown Organization [facility] Address [address] [place] [address] Phone [phone] Care Team Providers Care Electronics System Mechanic Name Role Phone Unavailable Primary Care Provider Unavailabl e Reason for Visit * Reason Onset Date Comments Medication Refill 01/19/2024 Encounter Details Date Type Department Care Team (Late st Contact Info) Description 01/19/2024 Refill Family Medicine [address] [place] [phone] Brian Guido MD [address] [place] [address] [place] [address] Anxiety disorder due to known physiological condition Allergies No known active allergiesdocumented as of this encounter (statuses as of 01/20/2024) Medications Medication Sig Dispensed Refills Start Date End Date Status Warfarin Sodium 5 MG Oral Tablet (Coumadin)Indication s:Status post mechanical aortic valve replacement,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 Or take as instructed by the [facility] 270 Tablet 3 06/23/2023 [...] after surgery. 90 Capsule 0 01/06/2024 Active Amoxicillin 875 MG Oral TabletIndications:Ac chitimacha sinusitis, recurrence not specified, unspecified location Take 1 Tablet by mouth in the morning and 1 Tablet before bedtime. Do all this for 7 days. 14 Tablet 0 01/19/2024 01/26/2024 Active DULoxetine HCl 30 MG Oral Capsule Delayed Release Particles (Cymbalta)Indication s:Anxiety disorder due to known physiological condition TAKE ONE CAPSULE BY MOUTH EVERY DAY 90 Capsule 2 01/20/2024 Active Hospital, Clinic, or Other Facility Administered Medication Ordered Dose Route Frequency Start Date End Date Status vitamin b-12 (Cyanocobalamin) inj 1,000 mcgIndications:S/P gastric bypass 1000 mcg IM [id number] 12/16/2023 11/16/2024 Active documented as of this encounter (statuses as of 01/20/2024) Active Problems Problem Noted Date Diagnosed Date [...] ion) 10/14/2023 Pre-operative examination 07/30/2023 [facility] OTHER*[id number] 01/20/2023 Morbid obesity 12/20/2021 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 Never true 05/05/20 23 Within the past 12 months, t he food you bought just didn't last and you didn't have money to get more. Never true 05/05/2023 Sex and Gender Information Value Date Recorded [...] encounter Miscellaneous Notes * Telephone Encounter - America Lowe [facility] - 01/20/2024 12:26 PM EDTRefused Prescriptions: Disp Refills DULoxetine HCl 30 MG Oral Capsule Delayed *90 Cap*2 Sig: TAKE 1CAPSULE BY MOUTH ONCE DAILY DO NOT CUT, CRUSH, OR CHEW. TAKE WITH 60 MG DOSE FOR A TOTAL DAILY DOSEOF 90 MGRefused By: AMERICA LOWEeason for Refusal: Duplicate Request documented in this encounter Plan of Treatment Upcoming Encounters Date Type Department Care Team (Late st Contact Info) Description 01/26/2024 6:15 AM EDT Anticoagulation Pharmacy Call Center [phone] [place] [address] [facility] 58 [address] [place] [address] 01/27/2024 8:00 AM EDT Telemedicine Psychology, [place] [address] [place] [address] Daisy Proctor, [facility] [address] [place], [place] [id number] 02/24/2024 2:30 PM EDT Telemedicine General Surgery, [place] [address] [place], [place] [phone] Yomi Barros PA-C [address] [place], [place] [phone] 03/05/2024 11:20 AM EDT Telemedicine Nutrition & Weight Management, [facility] [address] [facility] [place] [address] Misa Katz PA-C [facility] [address] 04/23/2024 11:00 AM EDT Office Visit Sleep Disorders [facility] 132 [facility] [place] [phone] Isabella Maynard DO [address] [place] [address] 06/04/2024 3:50 PM EDT Telemedicine Nutrition & Weight Management, [facility] [place] [address] Dulce Pace RDN [address] [place] [address] 07/13/2024 8:20 AM EDT Office Visit Family Medicine [address] [phone] Leonila Raygoza MD [address] [place] [address] [place] [address] 07/30/2024 8:30 AM EDT Office Visit Cardiology, [facility] [address] [facility] [address] Pepe Dupont MD [address] [place] [address] 09/02/2024 2:30 PM EDT Nutrition Services Nutrition & Weight Management, [facility] [place] [address] Dulce Pace RDN [facility] [place] [address] 09/02/2024 3:40 PM EDT Office Visit Nutrition & Weight Management, [facility] [address] [facility] [place] [address] Misa Katz PA-C [address] [facility] [place] [address] 01/05/2025 9:00 AM EST Office Visit Family Medicine [address] [place] [phone] Leonila Raygoza MD [address] [place] [address] [place] [address] Health Maintenance Due Date Last Done [...] this encounter Medical Devices Implanted Type Area Director Of Pupil Personnel Program Device Identifier Shelf Expiration Date Model / Serial / Lot Sut Steel 6 M654g - [id number] Implanted:Qty: 6 on 07/15/2014 at [place] [facility] [place] N/A: Chest JNJ : [employer] 05/03/2018 M654G / / [id number] Graft Gelweave 8x15 670689 - [id number] Implanted:Qty: 1 on 07/15/2014 at OR [facility] [place] Right: Axilla [employer] : CARDIO SYS 05/03/2019 [id number] / [id number] / [id number] [place] Ptfe 6x6in X5 - [id number] Implanted:Qty: 1 on 07/15/2014 at OR [facility] BARD : PERIPHERAL VASCULAR 11/14/2018 [id number] / / [id number] Graft Valved Valsalva 27mm - [id number] Implanted:Qty: 1 on 07/15/2014 at OR [facility] [place] N/A: Aorta [employer] 12/15/2017 27VAVGJ-5 15 / [id number] / Sut Steel 6 M654g - [id number] Implanted:Qty: 1 on 05/29/2015 by Smith Shelton MD at OR [facility] [place] N/A: Chest JNJ : [employer] 06/02/2019 M654G / / [id number] Graft Gelweave 8x15 [id number] - [id number] Implanted:Qty: 1 on 05/29/2015 by Smith Shelton MD at OR [facility] Right: Axilla [employer] : CARDIO SYS 05/02/2020 [id number] / [id number] Description:implanted in rig ht axillary Graft Gelweave 8x15 411657 - [id number] - [id number] Implanted:Qty: 1 on 05/29/2015 by Smith Shelton MD at OR [facility] Left: Carotid [employer] : CARDIO SYS 05/02/2020 [id number] / [id number] Gelweave Woven Vascular Prosthesis, Branched Arch Graft W/ Radiopaque Markers Implanted:Qty: 1 on 05/29/2015 by Smith Shelton MD at OR [facility] N/A: Aorta [employer] : VASCUTEK 04/02/2020 [id number] / [id number] Description:Diameter: 30/12/ 8/8 x 10 mm Usable Length: 20 cm +2@15 cm +2@30 cm Sut Steel 6 M654g - [id number] Implanted:Qty: 4 on 05/29/2015 by Smith Shelton MD at OR [facility] N/A: Chest JNJ : [employer] 06/02/2019 M654G / / [id number] [place] Ptfe 6x6in X5 - [id number] Implanted:Qty: 1 on 05/29/2015 by Smith Shelton MD at OR [facility] [place] N/A: Aorta CR BARD : PERIPHERAL VASCULAR 12/03/2019 [id number] / / [id number] Description:felt cut to surg lazaro's desired preference Mesh Vicryl 12 X 12 Vkm-L - [id number] Implanted:Qty: 1 on 12/30/2019 by Mihir Calvo MD at OR [facility] N/A: Abdomen JNJ : [employer] 04/02/2024 VKM-L / / [id number] Prolene Mesh - [id number] Implanted:Qty: 1 on 12/30/2019 by Mihir Calvo MD at OR [facility] N/A: Abdomen TK & TK [facility] [id number] 03/02/2023 SPM3XL / / [id number] documented as of this encounter Visit Diagnoses Diagnosis Anxiety disorder due to known physiological condition Anxiety state, unspecified documented in this encounter Advance Directives Latest [...] the patient have Health Care Power of Pickle Cutter? Yes, not currently available Code Status History [...] the patient have Health Care Power of Pickle Cutter? No Full Code 12/29/2019 7:58 PM 12/30/2019 6:18 PM This order reflects the patients wishes and were consensually agreed upon. Question Answer Comments Discussion of Advance Directives occurred with: Not Discussed Does the patient have a Living Will? No Does the patient have Health Care Power of Pickle Cutter? No
--- OUTSIDE RECORDS SUMMARY | 2024-05-26 16:50 | External Medical Summary | Summary of Care ---
Author Name Unknown Organization [facility] Address [address] [place] [address] Phone [phone] Care Team Providers Care Risk Tech Name Role Phone Unavailable Primary Care Provider Unavailabl e Reason for Visit * Reason Comments Re-Check Encounter Details Date Type Department Care Team (Late st Contact Info) Description 01/06/2024 1:40 PM EST Office Visit Family Medicine [address] [phone] Christopher Gorman [address] [place] [address] HTN, goal below 130/80*; Dyslipidemia, goal LDL below 100; Morbid obesity (HCC); Gastroesophageal reflux disease with esophagitis without hemorrhage; Generalized anxiety disorder Allergies No known active allergiesdocumented as of this encounter (statuses as of 01/06/2024) Medications Medication Sig Dispensed Refills Start Date End Date Status DULoxetine HCl 30 MG Oral Capsule Delayed Release Particles (Cymbalta)Indicatio ns:Anxiety disorder due to known physiological condition TAKE 1 CAPSULE BY MOUTH ONCE DAILY DO NOT CUT, CRUSH, OR CHEW. TAKE WITH 60 MG DOSE FOR A TOTAL DAILY DOSE OF 90 MG 90 Capsule 2 01/02/2023 Active Warfarin Sodium 5 MG Oral Tablet (Coumadin)Indicatio ns:Status post mechanical aortic valve replacement,Anticoa gulation management encounter,custodial current use of 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 Or take as instructed by the [facility] 270 Tablet 3 06/23/2023 Active Atorvastatin Calcium 10 MG Oral Tablet (Lipitor)Indication s:LBBB (left bundle branch block) take one pill by mouth at bedtime 90 Tablet 1 07/08/2023 Active Clopidogrel Bisulfate 75 MG Oral Tablet (pLAVix)Indications :H/O aortic dissection Take 1 Tablet by mouth in the morning. 90 Tablet 1 07/08/2023 Active Acetaminophen 500 MG Oral Tablet (Tylenol)Indication s:Morbid obesity with BMI of 50.0-59.9, adult (FORMERLY [...] after surgery. 90 Capsule 0 01/06/2024 Active Omeprazole 20 MG Oral Capsule Delayed Release (PriLOSEC)Indicatio ns:Morbid obesity with BMI of 50.0-59.9, adult ([facility]),Pre-operative examination Take 1 cap by mouth daily for 90 days after surgery. 90 Capsule 0 07/30/2023 Discontinue d(Refill) DULoxetine HCl 60 MG Oral Capsule Delayed Release Particles (Cymbalta)Indicatio ns:Anxiety disorder due to known physiological condition,DDD (degenerative disc disease), lumbar,Generalized anxiety disorder One daily with 30 mg for dose of 90 mg 90 Capsule 0 12/22/2023 Discontinue d(Medicatio n List Clean Up) Hospital, Clinic, or Other Facility Administered Medication Ordered Dose Route Frequency Start Date End Date Status vitamin b-12 (Cyanocobalamin) inj 1,000 mcgIndications:S/P gastric bypass 1000 mcg IM [id number] 12/16/2023 11/16/2024 Active documented as of this encounter (statuses as of 01/06/2024) Active Problems Problem Noted Date Diagnosed Date [...] ion) 10/14/2023 Pre-operative examination 07/30/2023 MICHAEL RESEARCH OTHER*[id number] 01/20/2023 Morbid obesity 12/20/2021 Diffuse axonal brain injury 04/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 Status post mechanical aortic valve replacement 07/18/2014 Thoracic aortic aneurysm 07/12/2014 DDD (degenerative disc disease), lumbar Overview: mostly L5 documented as of this encounter (statuses as of 01/06/2024) Resolved Problems Problem Noted Date Diagnosed Date [...] as of this encounter (statuses as of 01/06/2024) Immunizations Name Administration Dates Next Due Haemophilius B (HIB), unspecified 08/13/1988 MMR - Measles/Mumps/Rubella Vaccine 02/09/1992,0 06/11/1988 OPV - Polio Virus Vaccine (Oral) 992,06/11/1988,04/24/1987, 987 TDAP (age 10 and older)(Boostrix) 11/06/2015 documented as of this encounter Social History Tobacco Use Types Packs/Day Years Used Date Smoking Tobacco: Former Cigarettes 1 12 0 04/03/2003 - 04/03/2015 Smokeless Tobacco: Never Tobacco Cessation:Counseling Given: Not Answered Alcohol Use Standard Drinks/Week Comments Not Currently [...] on file documented as of this encounter Last Filed Vital Signs Vital Sign Reading Time Taken Comments Blood Pressure 124/76 01/06/2024 1:35 PM EST Pulse 93 01/06/2024 1:35 PM EST Temperature 36.2 C (97.2 F) 01/06/2024 1:35 PM ES T Respiratory Rate 16 01/06/2024 1:35 PM EST Oxygen Saturation - - Inhaled Oxygen Concentration - - Weight 150.3 kg (331 lb 4 oz) 01/06/2024 1:35 PM EST Height - - Body Mass Index 44.93 10/23/2023 9:52 AM EST documented in this encounter Functional Status Functional Status Response [...] No 12/29/2019 documented as of this encounter Nursing Notes * Jessa Bahena LPN - 01/06/2024 1:33 PM EST 6 month recheck documented in this encounter Plan of Treatment Upcoming Encounters Date Type Department Care Team (Late st Contact Info) Description 01/09/2024 6:15 AM EST Anticoagulation Pharmacy Call Center WB [phone] [facility] [place] [address] Ccps, [facility] 58 60 [facility] [place] [address] 01/21/2024 1:30 PM EDT Office Visit Cardiology, [facility] [address] [place] [address] Pepe Dupont MD [address] [place] [address] 02/24/2024 2:30 PM EDT Telemedicine General Surgery, [place] [address], [place] [phone] Yomi Barros PA-C [address] [place] [address] 03/05/2024 11:20 AM EDT Telemedicine Nutrition & Weight Management, [facility] [address] [place] [address] Misa Katz PA-C [address] [place] [address] 04/23/2024 11:00 AM EDT Office Visit Sleep Disorders Ctr [facility] [address] [place] [phone] Isabella Maynard, [address] [place] [address] 06/04/2024 3:50 PM EDT Telemedicine Nutrition & Weight Management, [facility] [address] [place] [address] Dulce Pace RDN [address] [place] [address] 09/02/2024 2:30 PM EDT Nutrition Services Nutrition & Weight Management, [facility] [address] [place] [address] Dulce Pace RDN [address] [place] [address] 09/02/2024 3:40 PM EDT Office Visit Nutrition & Weight Management, [facility] [address] [place] [address] Misa Katz PA-C [address] [place] [address] 01/05/2025 9:00 AM EST Office Visit Family Medicine [address] [place] [phone] Leonila Raygoza MD [address] [place] [address] [place] [address] Scheduled Orders Name Type Priority Associated Diagnoses Orde r Schedule COMPREHENSIVE METABOLIC PANEL Lab Routine HTN, goal below 130/80 Expected: 01/06/2024 (Approximate), Expires: 01/05/2025 CBC WITH WBC DIFFERENTIAL AND ANEMIA REFLEX WORKUP Lab Routine HTN, goal below 130/80 Expected: 01/06/2024 (Approximate), Expires: 01/05/2025 LIPID PANEL WITH DIRECT LDL IF TG IS HIGH Lab Routine Dyslipidemia, goal LDL below 100 Expected: 01/06/2024, Expires: 01/05/2025 HEMOGLOBIN A1C Lab Routine Morbid obesity (HCC) Expected: 01/06/2024 (Approximate), Expires: 01/05/2025 Health Maintenance Due Date Last Done Comments [...] this encounter Medical Devices Implanted Type Area Hvac Manager Device Identifier Shelf Expiration Date Model / Serial / Lot Sut Steel 6 M654g - [id number] Implanted:Qty: 6 on 07/15/2014 at [place] [facility] N/A: Chest JNJ : [employer] 05/03/2018 M654G / / [id number] Graft Gelweave 8x15 [id number] - [id number] Implanted:Qty: 1 on 07/15/2014 at [place] [facility] Right: Axilla [employer] : CARDIO SYS 05/03/2019 [id number] / [id number] / [id number] [place] Ptfe 6x6in X5 - [id number] Implanted:Qty: 1 on 07/15/2014 at [place] [facility] CR BARD : PERIPHERAL VASCULAR 11/14/2018 [id number] / / [id number] Graft Valved Valsalva 27mm - [id number] Implanted:Qty: 1 on 07/15/2014 at OR [facility] N/A: Aorta [employer] 12/15/2017 27VAVGJ-5 15 / [id number] / Sut Steel 6 M654g - [id number] Implanted:Qty: 1 on 05/29/2015 by Smith Shelton MD at [place] [facility] N/A: Chest JNJ : [employer] 06/02/2019 M654G / / [id number] Graft Gelweave 8x15 051570 - [id number] - [id number] Implanted:Qty: 1 on 05/29/2015 by Smith Shelton MD at [place] [facility] Right: Axilla [employer] : CARDIO SYS 05/02/2020 [id number] / [id number] / [id number] Description:implanted in rig ht axillary Graft Gelweave 8x15 073573 - [id number] - [id number] Implanted:Qty: 1 on 05/29/2015 by Smith Shelton MD at [place] [facility] Left: Carotid [employer] : CARDIO SYS 05/02/2020 [id number] / [id number] Gelweave Woven Vascular Prosthesis, Branched Arch Graft W/ Radiopaque Markers Implanted:Qty: 1 on 05/29/2015 by Smith Shelton MD at [place] [facility] N/A: Aorta [employer] : VASCUTEK 04/02/2020 [id number] / [id number] Description:Diameter: 30/12/ 8/8 x 10 mm Usable Length: 20 cm +2@15 cm +2@30 cm Sut Steel 6 M654g - [id number] Implanted:Qty: 4 on 05/29/2015 by Smith Shelton MD at [place] [facility] N/A: Chest JNJ : [employer] 06/02/2019 M654G / / [id number] [place] Ptfe 6x6in X5 - [id number] Implanted:Qty: 1 on 05/29/2015 by Smith Shelton MD at [place] [facility] N/A: Aorta CR BARD : PERIPHERAL VASCULAR 12/03/2019 [id number] / / [id number] Description:felt cut to surg lazaro's desired preference Mesh Vicryl 12 X 12 Vkm-L - [id number] Implanted:Qty: 1 on 12/30/2019 by Mihir Calvo MD at [place] [facility] N/A: Abdomen JNJ : [employer] 04/02/2024 VKM-L / / [id number] Prolene Mesh - [id number] Implanted:Qty: 1 on 12/30/2019 by Mihir Calvo MD at [place] [facility] N/A: Abdomen [employer] [facility] [id number] 03/02/2023 SPM3XL / / [id number] documented as of this encounter Visit Diagnoses Diagnosis HTN, goal below 130/80- Primary Unspecified essential hypertension Dyslipidemia, goal LDL below 100 Other and unspecified hyperlipidemia Morbid obesity (HCC) Morbid obesity Gastroesophageal reflux disease with esophagitis without hemorrhage Generalized anxiety disorder documented in this encounter Advance Directives Latest [...] the patient have Health Care Power of Ground Support Agent? Yes, not currently available Code Status History [...] the patient have Health Care Power of Ground Support Agent? No Full Code 12/29/2019 7:58 PM 12/30/2019 6:18 PM This order reflects the patients wishes and were consensually agreed upon. Question Answer Comments Discussion of Advance Directives occurred with: Not Discussed Does the patient have a Living Will? No Does the patient have Health Care Power of Ground Support Agent? No
--- OUTSIDE RECORDS SUMMARY | 2024-05-26 16:50 | External Medical Summary | Summary of Care ---
Author Name Unknown Organization [facility] Address [address] [place] [address] Phone [phone] Care Team Providers Care Manager Travel Name Role Phone Brian Guido MD Primary Care Provider + [phone] Reason for Visit * Reason Onset Date Comments Appointment 01/06/2024 Encounter Details Date Type Department Care Team (Late st Contact Info) Description 01/06/2024 Telephone [facility], [place] [address], [place] [phone] Daisy Proctor, [facility] [address], [place] [phone] Appointment Allergies No known active allergiesdocumented as [...] Active Warfarin Sodium 5 MG Oral Tablet (Coumadin)Indication s:Status post mechanical aortic valve replacement,Anticoag ulation management encounter,care home current use of 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 Or take as instructed by the [facility] 270 Tablet 3 06/23/2023 Active [...] after surgery. 30 Tablet 1 07/30/2023 Active Omeprazole 20 MG Oral Capsule Delayed Release (PriLOSEC)Indication s:Morbid obesity with BMI of 50.0-59.9, adult ([facility]),Pre-operative examination Take 1 cap by mouth daily for 90 days after surgery. 90 Capsule 0 07/30/2023 Active Torsemide 10 MG Oral Tablet [...] of 90 mg 90 Capsule 0 12/22/2023 Active DULoxetine HCl 60 MG Oral Capsule Delayed Release Particles (Cymbalta)Indication s:Anxiety disorder due to known physiological condition,DDD (degenerative disc disease), lumbar,Generalized anxiety disorder One daily with 30 mg for dose of 90 mg 90 Capsule 2 12/22/2023 Active Hospital, Clinic, or Other Facility Administered Medication Ordered Dose Route Frequency Start Date End Date Status vitamin b-12 (Cyanocobalamin) inj 1,000 mcgIndications:S/P gastric bypass 1000 mcg IM [id number] 12/16/2023 11/16/2024 Active documented as of this [...] 10/15/2023 Hypertension 10/15/2023 S/P gastric bypass 10/14/2023 GUILLERMO (obstructive sleep apnea) 10/14/2023 HFrEF (heart failure with reduced ejection fract ion) 10/14/2023 Pre-operative examination 07/30/2023 MICHAEL RESEARCH OTHER*[id number] 01/20/2023 Morbid obesity 12/20/2021 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 0 to 59.9 in adult 07/16/2021 12/20/2021 Overview: Per Obesity protocol Aortic aneurysm with dissection 03/27/2021 09/26/2021 Incisional hernia, without o bstruction or gangrene 01/07/2020 01/13/2020 Body mass index (BMI) of 40. 0 to 44.9 in adult 08/04/2017 11/20/2018 Overview: Per Obesity protocol #1 History of lumbar laminectom y for spinal cord decompression 01/07/2017 02/07/2017 Amaurosis fugax of right eye 05/02/2015 08/14/2017 H/O aortic dissection 04/28/20152023 Biloma 08/15/2014 08/14/2017 Chest pain 07/28/2014 04/17/2017 UTI (urinary tract infection) 07/21/2014 09/07/2014 Aortic aneurysm with dissection 07/16/2014 11/06/2018 Aortic regurgitation 07/12/2014 015 Biloma following surgery 07/05/201402/2019 Cholelithiasis 05/20/2014 07/28/2014 Overview: sonogram Aortic dissection, abdominal 07/28/2014 Acute blood loss anemia 07/2015 Dental caries 11/18/2023 Morbid obesity with BMI of 45.0-49.9, adult 07/19/2021 Overview: Per Obesity protocol documented as of this encounter (statuses as [...] encounter Miscellaneous Notes * Telephone Encounter - Brit Underwood OSA - 01/06/2024 10:51 AM EST Per Daisy Alegria The above pt was scheduled as a new with me for today at 1000. He showed at 1007, thought this would be a 5 minute appointment and not an hour. Please schedule him for the next available provider in a new slot. LMOM, provided call back number. GUILLERMO Bedolla documented in this encounter Plan of Treatment Upcoming Encounters Date Type Department Care Team (Late st Contact Info) Description 01/06/2024 1:40 PM EST Office Visit Family Medicine [address] [place] [phone] Christopher Gorman CRNP [address] [place] [address] [place] [address] 01/09/2024 6:15 AM EST Anticoagulation Pharmacy Call Center [phone] [facility] [place] [address] [facility] [place] [address] 01/21/2024 1:30 PM EDT Office Visit Cardiology, [facility] [address] [place] [address] Pepe Dupont MD [address] [place] [address] 02/24/2024 2:30 PM EDT Telemedicine General Surgery, [place] [address] [place] [address] Yomi Barros PA-C [address] [place], [place] [phone] 03/05/2024 11:20 AM EDT Telemedicine Nutrition & Weight Management, [facility] [address] [place] [address] Misa Katz PA-C [address] [place] [address] 04/23/2024 11:00 AM EDT Office Visit Sleep Disorders Ctr [facility] [address] [place] [phone] Isabella Maynard DO [address] [place] [address] 06/04/2024 3:50 PM EDT Telemedicine Nutrition & Weight Management, [facility] [address] [place] [address] Dulce Pace RDN [address] [place] [address] 09/02/2024 2:30 PM EDT Nutrition Services Nutrition & Weight Management, [facility] [address] [place] [address] Dulce Pace RDN [address] [place] [address] 09/02/2024 3:40 PM EDT Office Visit Nutrition & Weight Management, [facility] [address] [place] [address] Misa Katz PA-C [address] [place] [address] Health Maintenance Due Date Last Done Comments Hepatitis B (1 of 3 - 19+ 3-dose series) 2005 Depression Screening 01/12/2021 01/13/2020 COVID-19 Vaccine (2022-24 season) 2023 Influenza Vaccine (FLU shot) (#1) [...] this encounter Medical Devices Implanted Type Area Dining Room Maid Device Identifier Shelf Expiration Date Model / Serial / Lot Sut Steel 6 M654g - [id number] Implanted:Qty: 6 on 07/15/2014 at [place] [facility] N/A: Chest JNJ : [employer] 05/03/2018 M654G / / [id number] Graft Gelweave 8x15 837101 - [id number] Implanted:Qty: 1 on 07/15/2014 at OR [facility] Right: Axilla [employer] : CARDIO SYS 05/03/2019 199299 / [id number] / [id number] [place] Ptfe 6x6in X5 - [id number] Implanted:Qty: 1 on 07/15/2014 at OR [facility] CR BARD : PERIPHERAL VASCULAR 11/14/2018 [id number] / / [id number] Graft Valved Valsalva 27mm - [id number] Implanted:Qty: 1 on 07/15/2014 at OR [facility] N/A: Aorta [employer] 12/15/2017 27VAVGJ-5 15 / [id number] / Sut Steel 6 M654g - [id number] Implanted:Qty: 1 on 05/29/2015 by Smith Shelton MD at OR [facility] N/A: Chest JNJ : [employer] 06/02/2019 M654G / / [id number] Graft Gelweave 8x15 610497 - [id number] - [id number] Implanted:Qty: 1 on 05/29/2015 by Smith Shelton MD at OR [facility] Right: Axilla [employer] : CARDIO SYS 05/02/2020 [id number] / [id number] Description:implanted in rig ht axillary Graft Gelweave 8x15 017938 - [id number] - [id number] Implanted:Qty: 1 on 05/29/2015 by Smith Shelton MD at OR [facility] Left: Carotid [employer] : CARDIO SYS 05/02/2020 [id number] / [id number] Gelweave Woven Vascular Prosthesis, Branched Arch Graft W/ Radiopaque Markers Implanted:Qty: 1 on 05/29/2015 by Smith Shelton MD at OR [facility] N/A: Aorta [employer] : VASCUTEK 04/02/2020 [id number] / [id number] Description:Diameter: 30/12/ 8/8 x 10 mm Usable Length: 20 cm +2@15 cm +2@30 cm Sut Steel 6 M654g - [id number] Implanted:Qty: 4 on 05/29/2015 by Smith Shelton MD at OR [facility] N/A: Chest JNJ : [employer] 06/02/2019 M654G / / [id number] [place] Ptfe 6x6in X5 - [id number] Implanted:Qty: 1 on 05/29/2015 by Smith Shelton MD at OR [facility] N/A: Aorta CR BARD : PERIPHERAL VASCULAR 12/03/2019 [id number] / / [id number] Description:felt cut to surg lazaro's desired preference Mesh Vicryl 12 X 12 Vkm-L - [id number] Implanted:Qty: 1 on 12/30/2019 by Mihir Calvo MD at OR [facility] N/A: Abdomen JNJ : [employer] 04/02/2024 VKM-L / / [id number] Prolene Mesh - [id number] Implanted:Qty: 1 on 12/30/2019 by Mihir Calvo MD at OR [facility] N/A: Abdomen [employer] [id number] 03/02/2023 SPM3XL / / [id number] documented as of this encounter Advance Directives [...] the patient have Health Care Power of Fitness Coordinator? Yes, not currently available Code Status History [...] the patient have Health Care Power of Fitness Coordinator? No Full Code 12/29/2019 7:58 PM 12/30/2019 6:18 PM This order reflects the patients wishes and were consensually agreed upon. Question Answer Comments Discussion of Advance Directives occurred with: Not Discussed Does the patient have a Living Will? No Does the patient have Health Care Power of Fitness Coordinator? No Care Teams Manager Travel Relationship Specialty Start Date End Date Brian Guido MD [address] [place] [address] [place] [address] PCP - General Family Medicine 12/27/16 documented as of this encounter
--- OUTSIDE RECORDS SUMMARY | 2024-05-26 16:50 | External Medical Summary | Summary of Care ---
Author Name Unknown Organization [facility] Address [address] [place] [address] Phone [phone] Care Team Providers Care Cake Icer And Packer Name Role Phone Unavailable Primary Care Provider Unavailabl e Reason for Visit * Reason Comments eRx-Medication Refill Encounter Details Date Type Department Care Team (Late st Contact Info) Description 01/19/2024 Refill Family [address] [phone] Leonila Raygoza MD [address] [place] [address] [place] [address] Anxiety disorder due to known physiological condition Allergies No known active allergiesdocumented as of this encounter (statuses as of 01/20/2024) Medications Medication Sig Dispensed Refills Start Date End Date Status Warfarin Sodium 5 MG Oral Tablet (Coumadin)Indicati ons:Status post mechanical aortic valve replacement,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 90 Tablet 1 07/08/2023 Active Acetaminophen 500 MG Oral Tablet (Tylenol)Indicatio ns:Morbid obesity with BMI of 50.0-59.9, adult (HCC),Pre-operativ e examination take 2 tabs by mouth [...] 0 01/06/2024 Active Amoxicillin 875 MG Oral TabletIndications: Acute sinusitis, recurrence not specified, unspecified location Take 1 Tablet by mouth in the morning and 1 Tablet before bedtime. Do all this for 7 days. 14 Tablet 0 01/19/2024 01/26/20 24 Active DULoxetine HCl 30 MG Oral Capsule Delayed Release Particles (Cymbalta)Indicati ons:Anxiety disorder due to known physiological condition TAKE ONE CAPSULE BY MOUTH EVERY DAY 90 Capsule 2 01/20/2024 Active DULoxetine HCl 30 MG Oral Capsule Delayed Release Particles (Cymbalta)Indicati ons:Anxiety disorder due to known physiological condition TAKE 1 CAPSULE BY MOUTH ONCE DAILY DO NOT CUT, CRUSH, OR CHEW. TAKE WITH 60 MG DOSE FOR A TOTAL DAILY DOSE OF 90 MG 90 Capsule 2 01/02/2023 01/20/20 24 Discontinued Hospital, Clinic, or Other Facility Administered Medication Ordered Dose Route Frequency Start Date End Date Status vitamin b-12 (Cyanocobalamin) inj 1,000 mcgIndications:S/P gastric bypass 1000 mcg IM [id number] 12/16/2023 11/16/2024 Active documented as of this [...] ion) 10/14/2023 Pre-operative examination 07/30/2023 [facility] OTHER*[id number] 01/20/2023 Morbid obesity 12/20/2021 Diffuse axonal brain [...] encounter Miscellaneous Notes * Telephone Encounter - Kb Ortiz RPh - 01/20/2024 12:06 PM EDT Signed Prescriptions: Disp Refills DULoxetine HCl 30 MG Oral Capsule Delayed *90 Cap*2 Sig: TAKE ONE CAPSULE BY MOUTH EVERY DAYAuthorizing Provider: BEBA NAJERA User: KB ORTIZ documented in this encounter Plan of Treatment Upcoming Encounters Date Type Department Care Team (Late st Contact Info) Description 01/26/2024 6:15 AM EDT Anticoagulation Pharmacy Call Center [phone] [facility] [place] [address] Ccp, [facility] 58 [address] [facility] [place] [address] 01/27/2024 8:00 AM EDT Telemedicine Psychology, [place] [address] [place], [place] [phone] Daisy Proctor, [place] [address] [place], [place] [phone] 02/24/2024 2:30 PM EDT Telemedicine General Surgery, [place] [address] [place], [place] [phone] Yomi Barros PA-C [address] [employer], [place] [phone] 03/05/2024 11:20 AM EDT Telemedicine Nutrition & Weight Management, [facility] [address] [place] [address] Misa Katz PA-C [address] [place] [address] 04/23/2024 11:00 AM EDT Office Visit Sleep Disorders Ctr [facility] [address] [place] [phone] Isabella Maynard, [address] [place] [address] 06/04/2024 3:50 PM EDT Telemedicine Nutrition & Weight Management, [facility] [address] [place] [address] Dulce Pace RDN [address] [place] [address] 07/13/2024 8:20 AM EDT Office Visit [address] [phone] Leonila Raygoza MD [address] [place] [address] [place] [address] 07/30/2024 8:30 AM EDT Office Visit Cardiology, [facility] [address] [facility] [address] Pepe Dupont MD [address] [place] [address] 09/02/2024 2:30 PM EDT Nutrition Services Nutrition & Weight Management, [facility] [address] [facility] [place] [address] Dulce Pace RDN [address] [place] [address] 09/02/2024 3:40 PM EDT Office Visit Nutrition & Weight Management, [facility] 132 [place] [address] Misa Katz PA-C [address] [facility] [place] [address] 01/05/2025 9:00 AM EST Office Visit [address] [phone] Leonila Raygoza MD [address] [place] [address] [place] [address] Health Maintenance Due Date Last Done Comments [...] this encounter Medical Devices Implanted Type Area Surgical Technician Device Identifier Shelf Expiration Date Model / Serial / Lot Sut Steel 6 M654g - [id number] Implanted:Qty: 6 on 07/15/2014 at [place] [facility] [place]/A: Chest JNJ : [employer] 05/03/2018 M654G / / [id number] Graft Gelweave 8x15 [id number] - [id number] Implanted:Qty: 1 on 07/15/2014 at [place] [facility] Right: Axilla [employer] : CARDIO SYS 05/03/2019 [id number] / [id number] / [id number] [place] Ptfe 6x6in X5 - [id number] Implanted:Qty: 1 on 07/15/2014 at OR [facility] CR BARD : PERIPHERAL VASCULAR 11/14/2018 [id number] / / [id number] Graft Valved Valsalva 27mm - [id number] Implanted:Qty: 1 on 07/15/2014 at [place] [facility] N/A: Aorta [employer] 12/15/2017 [id number]-[id number] 15 / [id number] / Sut Steel 6 M654g - [id number] Implanted:Qty: 1 on 05/29/2015 by Smith Shelton MD at OR [facility] N/A: Chest JNJ : [employer] 06/02/2019 M654G / / [id number] Graft Gelweave 8x15 [id number] - [id number] - [id number] Implanted:Qty: 1 on 05/29/2015 by Smith Shelton MD at [place] [facility] Right: Axilla [employer] : CARDIO SYS 05/02/2020 [id number] / [id number] Description:implanted in rig ht axillary Graft Gelweave 8x15 [id number] - [id number] - [id number] Implanted:Qty: 1 on 05/29/2015 by Smith Shelton MD at OR [facility] Left: Carotid [employer] : CARDIO SYS 05/02/2020 [id number] / [id number] Gelweave Woven Vascular Prosthesis, Branched Arch Graft W/ Radiopaque Markers Implanted:Qty: 1 on 05/29/2015 by Smith Shelton MD at [place] [facility] N/A: Aorta [employer] : VASCUTEK 04/02/2020 [id number] / [id number] Description:Diameter: 30/12/ 8/8 x 10 mm Usable Length: 20 cm +2@15 cm +2@30 cm Sut Steel 6 M654g - [id number] Implanted:Qty: 4 on 05/29/2015 by Smith Shelton MD at [place] [facility] N/A: Chest JNJ : [employer] 06/02/2019 M654G / / [id number] Bond[place]ant Ptfe 6x6in X5 - [id number] Implanted:Qty: 1 on 05/29/2015 by Smith Shelton MD at [place] [facility] N/A: Aorta CR BARD : PERIPHERAL VASCULAR 12/03/2019 [id number] / / [id number] Description:felt cut to surg lazaro's desired preference Mesh Vicryl 12 X 12 Vkm-L - [id number] Implanted:Qty: 1 on 12/30/2019 by Mihir Calvo MD at [place] [facility] N/A: Abdomen JNJ : [employer] 04/02/2024 VKM-L / / [id number] Prolene Mesh - [id number] Implanted:Qty: 1 on 12/30/2019 by Mihir Calvo MD at [place] [facility] N/A: [facility] [id number] 03/02/2023 [id number] / / [id number] documented as of this encounter Visit Diagnoses [...] the patient have Health Care Power of Electronics Design Engineer? Yes, not currently available Code Status History [...] the patient have Health Care Power of Electronics Design Engineer? No Full Code 12/29/2019 7:58 PM 12/30/2019 6:18 PM This order reflects the patients wishes and were consensually agreed upon. Question Answer Comments Discussion of Advance Directives occurred with: Not Discussed Does the patient have a Living Will? No Does the patient have Health Care Power of Electronics Design Engineer? No
--- OUTSIDE RECORDS SUMMARY | 2024-05-26 16:50 | External Medical Summary | Summary of Care ---
Author Name Unknown Organization [facility] Address [address] [place] [address] Phone [phone] Care Team Providers Care Tube Roller Name Role Phone Unavailable Primary Care Provider Unavailabl e Reason for Visit * Reason Comments Acute Sx x . Lost voice yesterday. Prod cough with dark green sputum that blood tinged, sinus pressure, head congestion. Using cough drops and dayquil with no relief. Also using apap. Encounter Details Date Type Department Care Team (Late st Contact Info) Description 01/19/2024 8:00 AM EDT Telemedicine [facility] [address] [facility] [place] [address] Jessie Mcmahon CRNP [address] [facility] [place] [address] Acute sinusitis, recurrence not specified, unspecified location*; Chronic heart failure with preserved ejection fraction (HCC) Allergies No known active allergiesdocumented as of this encounter (statuses as of 01/19/2024) Medications Medication Sig Dispensed Refills Start Date [...] post mechanical aortic valve replacement,Anticoag ulation management encounter,halfway current use of anticoagulant therapy Take 2-3 [...] :Morbid obesity with BMI of 50.0-59.9, adult ([facility]),Pre-operative examination take 2 tabs by mouth every 8 hours pain after surgery for 3 days 18 Tablet 0 07/30/2023 Active Ondansetron HCl 4 MG Oral TabletIndications:Mo rbid obesity with BMI of 50.0-59.9, adult ([facility]),Pre-operative examination 1 tablet by mouth every 8 [...] 01/06/2024 Active Amoxicillin 875 MG Oral TabletIndications:Ac [place] sinusitis, recurrence not specified, unspecified location Take 1 Tablet by mouth in the morning and 1 Tablet before bedtime. Do all this for 7 days. 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 History of Present Illness Deep Fong is a 38 year old male that presents for Acute (Sx x . Lost voice yesterday. Prod cough with dark green sputum that blood tinged, sinus pressure, head congestion. Using cough drops and dayquil with no relief. Also using apap. ) Presents to discuss URI symptoms starting last . He is coughing and having mucus. Starting yesterday he lost his voice. Today his teeth, eyes and face has a lot of pressure. The mucus is greenish with some blood streaks. Cough is productive of sputum. Some shortness of breath after coughingfits. Reports postnasal drip. No fever/chills, n/v/d, Taking tylenol and DayQuil with little improvement. His friend and his sister were both sick last week. No home COVID testing. Physical Exam There were no vitals filed for this visit. Physical Exam Nursing note reviewed. Constitutional: General: He is not in acute distress. Appearance: Normal appearance. He is obese. He is ill-appearing. HENT: Head: Normocephalic and atraumatic. Neurological: Mental Status: He is alert and oriented to person, place, and time. I have reviewed the following results: CBC and BMP Assessment and Plan Acute sinusitis, recurrence not specified, unspecified location Antibiotics as prescribed. Saline nasal flushes as needed. - Amoxicillin 875 MG Oral Tablet; Take 1 Tablet by mouth in the morning and 1 Tablet before bedtime. Do all this for 7 days. Chronic heart failure with preserved ejection fraction (HCC) Ok to take mucinex, not D or DM as needed for cough. Continue current cardiac medications. Follow-up with cardiology. Wrap-Up Follow Up: Return if symptoms worsen or fail to improve. Time: I spent a total of 20-29 minutes (exact time 22 mins) on the date of service in preparation, delivery, and documentation of the care provided to Deep Fong excluding any time spent in the performance of separately billed services. Telemedicine: Patient location: HOME. I was in a hospital or clinic location. After connecting through televideo,patient was verified with two unique identifiers. 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 Methods to assure confidentiality were taken. Patient acknowledged consent and understanding of pr ivacy and security of the Telemedicine visit. The patient agreed to participate. documented in this encounter Nursing Notes * Tawana Joya CMA - 01/19/2024 8:05 AM EDT Chief Complaint Patient presents with Acute Sx x . Lost voice yesterday. Prod cough with dark green sputum that blood tinged, sinus pressure, head congestion. Using cough drops and dayquil with no relief. Also using apap. documented in this encounter Plan of Treatment Upcoming Encounters Date Type Department Care Team (Late st Contact Info) Description 01/26/2024 6:15 AM EDT Anticoagulation Pharmacy Call Center [facility] [address] [facility] [place] [address] [facility], [facility] 58 60 [facility] [place] [address] 01/27/2024 8:00 AM EDT Telemedicine Psychology, [place] [address] [place], [place] [phone] Daisy Proctor, [facility] [address], [place] [phone] 02/24/2024 2:30 PM EDT Telemedicine General Surgery, [place] [address] [place] [address] Yomi Barros PA-C [address] [place] [address] 03/05/2024 11:20 AM EDT Telemedicine Nutrition & Weight Management, [facility] [address] [place] [address] Misa Katz PA-C [address] [place] [address] 04/23/2024 11:00 AM EDT Office [facility] [place] [phone] Isabella Maynard DO [address] [place] [address] 06/04/2024 3:50 PM EDT Telemedicine Nutrition & Weight Management, [facility] [address] [place] [address] Dulce Pace RDN [address] [place] [address] 07/13/2024 8:20 AM EDT Office Visit [address] [phone] Leonila Raygoza MD [address] [place] [address] [place] [address] 07/30/2024 8:30 AM EDT Office Visit Cardiology, [facility] [address] [place] [address] Pepe Dupont MD [address] [place] [address] 09/02/2024 2:30 PM EDT Nutrition Services Nutrition & Weight Management, [facility] [address] [place] [address] Dulce Pace RDN [address] [place] [address] 09/02/2024 3:40 PM EDT Office Visit Nutrition & Weight Management, [facility] [address] [place] [address] Misa Katz PA-C [address] [place] [address] 01/05/2025 9:00 AM EST Office Visit [address] [phone] Leonila Raygoza MD [address] [place] [address] [place] [address] Health Maintenance Due Date Last Done Comments Hepatitis B (1 of 3 - 19+ 3-dose series) 2005 Depression Screening 01/12/2021 01/13/2020 COVID-19 Vaccine (1 - 24 season) 2023 Influenza Vaccine (FLU shot) (#1) [...] this encounter Medical Devices Implanted Type Area Stove Polisher Device Identifier Shelf Expiration Date Model / Serial / Lot Sut Steel 6 M654g - [id number] Implanted:Qty: 6 on 07/15/2014 at [place] [facility] N/A: Chest JNJ : [employer] 05/03/2018 M654G / / [id number] Graft Gelweave 8x15 [id number] - [id number] Implanted:Qty: 1 on 07/15/2014 at [place] [facility] Right: Axilla [employer] : CARDIO SYS 05/03/2019 [id number] / [id number] / [id number] [place] Ptfe 6x6in X5 - [id number] Implanted:Qty: 1 on 07/15/2014 at [place] [facility] CR BARD : PERIPHERAL VASCULAR 11/14/2018 [id number] / / [id number] Graft Valved Valsalva 27mm - [id number] Implanted:Qty: 1 on 07/15/2014 at OR [facility] N/A: Aorta [employer] 12/15/2017 27VAVGJ-5 15 / [id number] / Sut Steel 6 M654g - [id number] Implanted:Qty: 1 on 05/29/2015 by Smith Shelton MD at OR [facility] N/A: Chest JNJ : [employer] 06/02/2019 M654G / / [id number] Graft Gelweave 8x15 251011 - [id number] - [id number] Implanted:Qty: 1 on 05/29/2015 by Smith Shelton MD at [place] [facility] Right: Axilla [employer] : CARDIO SYS 05/02/2020 [id number] / [id number] / [id number] Description:implanted in rig ht axillary Graft Gelweave 8x15 012807 - [id number] - [id number] Implanted:Qty: 1 on 05/29/2015 by Smith Shelton MD at [place] [facility] Left: Carotid [employer] : CARDIO SYS 05/02/2020 [id number] / [id number] Gelweave Woven Vascular Prosthesis, Branched Arch Graft W/ Radiopaque Markers Implanted:Qty: 1 on 05/29/2015 by Smith Shelton MD at [place] [facility] N/A: Aorta [employer] : VASCUTEK 04/02/2020 [id number] / [id number] / [id number] Description:Diameter: 30/12/ 8/8 x 10 mm Usable Length: 20 cm +2@15 cm +2@30 cm Sut Steel 6 M654g - [id number] Implanted:Qty: 4 on 05/29/2015 by Smith Shelton MD at [place] [facility] N/A: Chest JNJ : [employer] 06/02/2019 M654G / / [id number] [place] Ptfe 6x6in X5 - [id number] Implanted:Qty: 1 on 05/29/2015 by Smith Shelton MD at [place] [facility] N/A: Aorta CR BARD : PERIPHERAL VASCULAR 12/03/2019 [id number] / / [id number] Description:felt cut to surg lazaro's desired preference Mesh Vicryl 12 X 12 Vkm-L - [id number] Implanted:Qty: 1 on 12/30/2019 by Mihir Calvo MD at OR [facility] N/A: Abdomen JNJ : [employer] 04/02/2024 VKM-L / / [id number] Prolene Mesh - [id number] Implanted:Qty: 1 on 12/30/2019 by Mihir Calvo MD at [place] [facility] N/A: Elmer adFreeq [id number] 03/02/2023 [id number] / / [id number] documented as of this encounter Visit Diagnoses Diagnosis Acute sinusitis, recurrence not specified, unspecified location- Primary Chronic heart failure with preserved ejection fraction (HCC) documented in this encounter Advance Directives Latest [...] the patient have Health Care Power of Banking Pin Adjuster? Yes, not currently available Code Status History [...] the patient have Health Care Power of Banking Pin Adjuster? No Full Code 12/29/2019 7:58 PM 12/30/2019 6:18 PM This order reflects the patients wishes and were consensually agreed upon. Question Answer Comments Discussion of Advance Directives occurred with: Not Discussed Does the patient have a Living Will? No Does the patient have Health Care Power of Banking Pin Adjuster? No
--- OUTSIDE RECORDS SUMMARY | 2024-05-26 16:50 | External Medical Summary | Summary of Care ---
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 Or take as instructed by the [facility] 270 Tablet 3 06/23/2023 Active [...] after surgery. 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 Status post mechanical aortic valve replacement 07/18/2014 Thoracic aortic aneurysm 07/12/2014 DDD (degenerative disc disease), lumbar Overview: mostly L5 documented as of this encounter (statuses as of 01/07/2024) Resolved Problems Problem Noted Date Diagnosed Date [...] as of this encounter (statuses as of 01/07/2024) Immunizations Name Administration Dates Next Due Haemophilius [...] AM EST Anticoagulation Pharmacy Call Center [phone] [facility] [place] [address] [facility], [facility] [address] [facility] [place] [address] 01/21/2024 1:30 PM EDT Office Visit Cardiology, [facility] [address] [address] Pepe Dupont MD [address] [address] 02/24/2024 2:30 PM EDT Telemedicine General Surgery, [place] [address] [place] [address] Yomi Barros PA-C [address] [place] [address] 03/05/2024 11:20 AM EDT Telemedicine Nutrition & Weight Management, [facility] [address] [address] Misa Katz PA-C [address] [address] 04/23/2024 11:00 AM EDT Office Visit [facility] [address] [place] [address] Isabella Maynard DO [address] [place], [place] [address] 06/04/2024 3:50 PM EDT Telemedicine Nutrition & Weight Management, [facility] [address] [place] [address] Dluce Pace RDN [address] [place] [address] 07/13/2024 8:20 AM EDT Office Visit [address] [id number] Leonila Raygoza MD [address] [place] [address] [place] [address] 09/02/2024 2:30 PM EDT Nutrition Services Nutrition & Weight Management, [facility] [address] [facility] [place] [address] Dulce Pace RDN [address] [place] [address] 09/02/2024 3:40 PM EDT Office Visit Nutrition & Weight Management, [facility] [address] [facility] [place] [address] Misa Katz PA-C [address] [place] [address] 01/05/2025 9:00 AM EST Office Visit [address] [id number] Leonila Raygoza MD [address] [place] [address] [place] [address] Health Maintenance Due Date Last Done Comments [...] this encounter Medical Devices Implanted Type Area Product Assurance Engineer Device Identifier Shelf Expiration Date Model / Serial / Lot Sut Steel 6 M654g - [id number] Implanted:Qty: 6 on 07/15/2014 [place] [facility] [place]: Chest JNJ : [employer] 05/03/2018 M654G / / [id number] Graft Gelweave 8x15 [id number] - [id number] Implanted:Qty: 1 on 07/15/2014 at [place] [facility] [place] Right: Axilla [employer] : CARDIO SYS 05/03/2019 [id number] / [id number] / [id number] Stapleton Ptfe 6x6in X5 - [id number] Implanted:Qty: 1 on 07/15/2014 at [place] [facility] [place] CR BARD : PERIPHERAL VASCULAR 11/14/2018 [id number] / / [id number] Graft Valved Valsalva 27mm - [id number] Implanted:Qty: 1 on 07/15/2014 at [place] [facility] [place] N/A: Aorta [employer] 12/15/2017 [id number]-[id number] 15 / [id number] / Sut Steel 6 M654g - [id number] Implanted:Qty: 1 on 05/29/2015 by Smith Shelton MD at [place] [facility] [place] N/A: Chest JNJ : [employer] 06/02/2019 M654G / / [id number] Graft Gelweave 8x15 [id number] - [id number] - [id number] Implanted:Qty: 1 on 05/29/2015 by Smith Shelton MD at [place] [facility] [place] Right: Axilla [employer] : [employer] 05/02/2020 [id number] / [id number] Description:implanted in rig ht axillary Graft Gelweave 8x15 977239 - [id number] - [id number] Implanted:Qty: 1 on 05/29/2015 by Smith Shelton MD at [place] [facility] [place] Left: Carotid [employer] : [employer] 05/02/2020 [id number] / [id number] Gelweave Woven Vascular Prosthesis, Branched Arch Graft W/ Radiopaque Markers Implanted:Qty: 1 on 05/29/2015 by Smith Shelton MD at [place] [facility] [place] N/A: Aorta [employer] : VASC[employer]K 04/02/2020 [id number] / [id number] Description:Diameter: 30/12/ 8/8 x 10 mm Usable Length: 20 cm +2@15 cm +2@30 cm Sut Steel 6 M654g - [id number] Implanted:Qty: 4 on 05/29/2015 by Smith Shelton MD at [place] [facility] [place] N/A: Chest JNJ : [employer] 06/02/2019 M654G / / [id number] Stapleton Ptfe 6x6in X5 - [id number] Implanted:Qty: 1 on 05/29/2015 by Smith Shelton MD at [place] [facility] [place] N/A: Aorta CR BARD : PERIPHERAL VASCULAR 12/03/2019 [id number] / / [id number] Description:felt cut to surg lazaro's desired preference Mesh Vicryl 12 X 12 Vkm-L - [id number] Implanted:Qty: 1 on 12/30/2019 by Mihir Calvo MD at [place] [facility] [place] N/A: Abdomen JNJ : [employer] 04/02/2024 VKM-L / / [id number] Prolene Mesh - [id number] Implanted:Qty: 1 on 12/30/2019 by Mihir Calvo MD at [place] [facility] [place] N/A: Abdomen [employer] [id number] 03/02/2023 [id number] / / [id number] documented as of this encounter Advance Directives [...] the patient have Health Care Power of Deputy Coroner? Yes, not currently available Code Status History [...] the patient have Health Care Power of Deputy Coroner? No Full Code 12/29/2019 7:58 PM 12/30/2019 6:18 PM This order reflects the patients wishes and were consensually agreed upon. Question Answer Comments Discussion of Advance Directives occurred with: Not Discussed Does the patient have a Living Will? No Does the patient have Health Care Power of Deputy Coroner? No
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
--- OUTSIDE RECORDS SUMMARY | 2024-05-26 16:51 | External Medical Summary | Summary of Care ---
Author Name Unknown Organization [facility] Address [address] [place] [address] Phone [phone] Care Team Providers Care Licensing Specialist Name Role Phone Brian Guido MD Primary Care Provider + [phone] Reason for Visit * Reason Comments eRx-Medication Refill Encounter Details Date Type Department Care Team (Late st Contact Info) Description 12/22/2023 Refill Family Medicine [address] [phone] Christopher Julien [address] [place] [address] Anxiety disorder due to known physiological condition; DDD (degenerative disc disease), lumbar; Generalized anxiety disorder Allergies No known active allergiesdocumented as of this encounter (statuses as of 12/22/2023) Medications Medication Sig Dispensed Refills Start Date [...] post mechanical aortic valve replacement,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 Or take as instructed by the [facility] 270 Tablet 3 06/23/2023 [...] obesity with BMI of 50.0-59.9, adult ([facility]),Pre-operative examination take 2 tabs by mouth every 8 hours pain after surgery for 3 days 18 Tablet 0 07/30/2023 Active Ondansetron HCl 4 MG Oral TabletIndications:Mo rbid obesity with BMI of 50.0-59.9, adult ([facility]),Pre-operative examination 1 tablet by mouth every 8 hours as needed for nausea after surgery. 30 Tablet 1 07/30/2023 Active Omeprazole 20 MG Oral Capsule Delayed Release (PriLOSEC)Indication s:Morbid obesity with BMI of 50.0-59.9, adult (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 LBBB (left bundle branch block) 12/04/2018 Generalized anxiety disorder 08/14/2017 Dyslipidemia, goal LDL below 100 06/14/2016 Status post mechanical aortic valve replacement 07/18/2014 Thoracic aortic aneurysm 07/12/2014 Anxiety disorder DDD (degenerative disc disease), lumbar Overview: mostly L5 Primary hypertension documented as of this encounter (statuses as of 12/22/2023) Resolved Problems Problem Noted Date Diagnosed Date [...] as of this encounter (statuses as of 12/22/2023) Immunizations Name Administration Dates Next Due Haemophilius [...] encounter Miscellaneous Notes * Telephone Encounter - Christopher Julien CRNP - 12/22/2023 5:06 PM EST Signed Prescriptions: Disp Refills DULoxetine HCl 60 MG Oral Capsule Delayed *90 Cap*0 Sig: One daily with 30 mg for dose of 90 mg Authorizing Provider: CHRISTOPHER JULIEN * Telephone Encounter - Carolyne Williamson [facility] - 12/22/2023 4:07 PM ESTPending Prescriptions: Disp Refills DULoxetine HCl 60 MG Oral Capsule Delayed *90 Cap*0 Sig: One daily with 30 mg for dose of 90 mg * Telephone Encounter - Carolyne Williamson RPh - 12/22/2023 4:06 PM EST Previous provider is no longer with clinic. Routing to provider(s) to please approve refills until upcoming appointment with new [facility] provider. Pending Prescriptions: Disp Refills DULoxetine HCl 60 MG Oral Capsule Delayed *90 Cap*0 Sig: One daily with 30 mg for dose of 90 mg Last Visit: 07/08/2023 (in office), 05/05/2023 (telemedicine) Next Visit: 01/06/2024 If no future appointments scheduled, and last appointment is greater than a year ago, please schedule patient for a follow-up appointment Last date the medication was ordered: 01/02/23 Pharmacy: [facility], [address] [place] Is this request for a controlled substance?No [...] Care Team (Late st Contact Info) Description 12/25/2023 10:10 AM EST Laboratory Laboratory [address] [place] [phone] [address] [place] [address] 12/26/2023 6:15 AM EST Anticoagulation Pharmacy Call Center 58[address]60 [facility] [place] [address] [facility] 58 60 [facility] [place] [address] 01/06/2024 1:40 PM EST Office Visit Family Medicine [address] [place] [phone] Christopher Julien [address] [place] [address] 01/21/2024 1:30 PM EDT Office Visit Cardiology, [facility] [address] [place] [address] Pepe Dupont MD [address] [place] [address] 02/24/2024 2:30 PM EDT Telemedicine General Surgery, [place] [address] [place] [address] Yomi Barros PA-C [address] [place] [address] 03/05/2024 11:20 AM EDT Telemedicine Nutrition & Weight Management, [facility] [address] [place] [address] Misa Katz PA-C 132 [facility] [place] [address] 04/23/2024 11:00 AM EDT Office Visit Sleep Disorders Ctr [facility] 132 [facility] [place] [phone] Isabella Maynard DO [address] [place] [address] 06/04/2024 3:50 PM EDT Telemedicine Nutrition & Weight Management, [facility] [address] [place] [address] Dulce Pace RDN [address] [place] [address] 09/02/2024 2:30 PM EDT Nutrition Services Nutrition & Weight Management, [facility] [address] [place] [address] Dulce Pace RDN [address] [place] [address] 09/02/2024 3:40 PM EDT Office Visit Nutrition & Weight Management, [facility] [address] [place] [address] Misa Katz PA-C [address] [place] [address] Health Maintenance Due Date Last Done Comments [...] this encounter Medical Devices Implanted Type Area Immigration Associate Device Identifier Shelf Expiration Date Model / Serial / Lot Sut Steel 6 M654g - [id number] [place] 6 [place] [facility] [place] Chest JNJ : [employer] 05/03/2018 M654G / / [id number] Graft Gelweave 8x15 [id number] - [id number] [place]planted:Qty: 1 on 07/15/2014 [place] [facility] [place]: Axilla [employer] : CARDIO SYS 05/03/2019 [id number] / [id number] / [id number] [place] Ptfe 6x6in X5 - [id number] Implanted:Qty: 1 on 07/15/2014 at OR [facility] BARD : PERIPHERAL VASCULAR 11/14/2018 [id number] / / [id number] Graft Valved Valsalva 27mm - [id number] Implanted:Qty: 1 on 07/15/2014 [place] [facility] [place] N/A: Aorta [employer] 12/15/2017 [id number]-5 15 / [id number] / Sut Steel 6 M654g - [id number] Implanted:Qty: 1 on 05/29/2015 by [place] Shelton [place] [facility] [place]: Chest JNJ : [employer] 06/02/2019 M654G / / [id number] Graft Gelweave 8x15 [id number] - [id number] - [id number] Implanted:Qty: 1 on 05/29/2015 by [place] Shelton [place] [facility] [place]: Axilla [employer] : CARDIO SYS 05/02/2020 [id number] / [id number] / [id number] Description:implanted in rig ht axillary Graft Gelweave 8x15 [id number] - [id number] - [id number] Implanted:Qty: 1 on 05/29/2015 by [place] Shelton [place] [facility] [place]: Carotid [employer] : CARDIO SYS 05/02/2020 [id number] / [id number] / [id number] Gelweave Woven Vascular Prosthesis, Branched Arch Graft W/ Radiopaque Markers Implanted:Qty: 1 on 05/29/2015 by [place] Shelton [place] [facility] [place]A: Aorta [employer] : VASCUTEK 04/02/2020 [id number] / [id number] / [id number] Description:Diameter: 30/12/ 8/8 x 10 mm Usable Length: 20 cm +2@15 cm +2@30 cm Sut Steel 6 M654g - [id number] Implanted:Qty: 4 on 05/29/2015 by [place] Shelton [place] [facility] [place]A: Chest JNJ : [employer] 06/02/2019 M654G / / [id number] [place] Ptfe 6x6in X5 - [id number] Implanted:Qty: 1 on 05/29/2015 by [place] Shelton MD [place] [facility] [place]A: Aorta CR BARD : PERIPHERAL VASCULAR 12/03/2019 [id number] / / [id number] Description:felt cut to surg lazaro's desired preference Mesh Vicryl 12 X 12 Vkm-L - [id number] Implanted:Qty: 1 on 12/30/2019 by Mihir Calvo [place] [facility] [place]A: Abdomen JNJ : [employer] 04/02/2024 VKM-L / / [id number] Prolene Mesh - [id number] Implanted:Qty: 1 on 12/30/2019 by Mihir Calvo [place] [facility] [place]A: Abdomen [employer] IP [id number] 03/02/2023 [id number] / / [id number] documented as of this encounter Visit Diagnoses Diagnosis Anxiety disorder due to known physiological condition Anxiety state, unspecified DDD (degenerative disc disease), lumbar Degeneration of lumbar or lumbosacral intervertebral disc Generalized anxiety disorder documented in this encounter [...] the patient have Health Care Power of Set Decorator? Yes, not currently available Code Status History [...] the patient have Health Care Power of Set Decorator? No Full Code 12/29/2019 7:58 PM 12/30/2019 6:18 PM This order reflects the patients wishes and were consensually agreed upon. Question Answer Comments Discussion of Advance Directives occurred with: Not Discussed Does the patient have a Living Will? No Does the patient have Health Care Power of Set Decorator? No Care Teams Licensing Specialist Relationship Specialty Start Date End Date Brian Guido MD [address] [place] [address] [place] [address] PCP - General Family Medicine 12/27/16 documented as of this encounter
--- OUTSIDE RECORDS SUMMARY | 2024-05-26 16:51 | External Medical Summary | Summary of Care ---
Author Name Unknown Organization [facility] Address [address] [place] [address] Phone [phone] Care Team Providers Care Basket Filler Name Role Phone Brian Guido MD Primary Care Provider + [phone] Reason for Visit * Reason Onset Date Comments Medication Refill 12/22/2023 Encounter Details Date Type Department Care Team (Late st Contact Info) Description 12/22/2023 Refill Family Medicine [address] [phone] Brian Guido MD [address] [place] [address] [place] [address] Anxiety disorder due to known physiological [...] post mechanical aortic valve replacement,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 Or take as instructed by the [facility] 270 Tablet 3 06/23/2023 Active [...] s:Morbid obesity with BMI of 50.0-59.9, adult ([facility]),Pre-operative examination take 2 tabs by mouth every 8 hours pain after surgery for 3 days 18 Tablet 0 07/30/2023 Active Ondansetron HCl 4 MG Oral TabletIndications:M orbid obesity with BMI of 50.0-59.9, adult ([facility]),Pre-operative examination 1 tablet by mouth every 8 hours as needed for nausea after surgery. 30 Tablet 1 07/30/2023 Active Omeprazole 20 MG Oral Capsule Delayed Release (PriLOSEC)Indicatio ns:Morbid obesity with BMI of 50.0-59.9, adult ([facility]),Pre-operative examination Take 1 cap by [...] 90 mg 90 Capsule 2 12/22/2023 Active DULoxetine HCl 60 MG Oral Capsule Delayed Release Particles (Cymbalta)Indicatio ns:Anxiety disorder due to known physiological condition,DDD (degenerative disc disease), lumbar,Generalized anxiety disorder One daily with 30 mg for dose of 90 mg 90 Capsule 2 01/02/2023 4 Discontinue d(Refill) Hospital, Clinic, or Other Facility Administered Medication Ordered Dose Route Frequency Start Date End Date Status vitamin b-12 (Cyanocobalamin) inj 1,000 mcgIndications:S/P gastric bypass 1000 mcg IM [id number] 12/16/2023 11/16/2024 Active documented as of this [...] ejection fract ion) 10/14/2023 Pre-operative examination 07/30/2023 [facility] OTHER*[id number] 01/20/2023 Morbid obesity 12/20/2021 Diffuse axonal brain [...] blood loss anemia 07/07/2015 Dental caries 11/18/2023 Morbid obesity with BMI [...] Description 12/25/2023 10:10 AM EST Laboratory Laboratory [address] [place] [phone] [place] [address] 12/26/2023 6:15 AM EST Anticoagulation Pharmacy Call Center 58[address]60 [facility] [place] [address] [facility] 58 60 [facility] [place] [address] 01/06/2024 1:40 PM EST Office Visit Family Medicine [address] [place] [phone] Christopher Gorman CRNP [address] [place] [address] [place] [address] 01/21/2024 1:30 PM EDT Office Visit Cardiology, [facility] [address] [place] [address] Pepe Dupont MD [address] [place] [address] 02/24/2024 2:30 PM EDT Telemedicine General Surgery, [place] [address] [place] [address] Yomi Barros PA-C [address] [place], [place] [id number] 03/05/2024 11:20 AM EDT Telemedicine Nutrition & Weight Management, [facility] [address] [place] [address] Misa Katz PA-C [address] [place] [address] 04/23/2024 11:00 AM EDT Office Visit Sleep Disorders Ctr [facility] 132 [facility] [place] [phone] Isabella Maynard DO [address] [place] [address] 06/04/2024 3:50 PM EDT Telemedicine Nutrition & Weight Management, [facility] [address] [place] [address] Dulce Pace RDN [address] [place] [address] 09/02/2024 2:30 PM EDT Nutrition Services Nutrition & Weight Management, [facility] [address] [place] [address] Dulce Pace RDN [address] [place] [address] 09/02/2024 3:40 PM EDT Office Visit Nutrition & Weight Management, [facility] [address] [place] [address] Misa Katz PA-C [address] [place] [address] Health Maintenance Due Date Last Done Comments [...] this encounter Medical Devices Implanted Type Area Educational Manager Device Identifier Shelf Expiration Date Model / Serial / Lot Sut Steel 6 M654g - [id number] Implanted:Qty: 6 on 07/15/2014 at [place] [facility] [place] N/A: Chest JNJ : [employer] 05/03/2018 M654G / / [id number] Graft Gelweave 8x15 [id number] - [id number] Implanted:Qty: 1 on 07/15/2014 at [place] [facility] [place] Right: Axilla [employer] : CARDIO SYS 05/03/2019 [id number] / [id number] / [id number] [place] Ptfe 6x6in X5 - [id number] Implanted:Qty: 1 on 07/15/2014 at OR [facility] [place] CR BARD : PERIPHERAL VASCULAR 11/14/2018 [id number] / / [id number] Graft Valved Valsalva 27mm - [id number] Implanted:Qty: 1 on 07/15/2014 at OR [facility] [place] N/A: Aorta [employer] 12/15/2017 [id number]-5 15 / [id number] / Sut Steel 6 M654g - [id number] Implanted:Qty: 1 on 05/29/2015 by [place] Shelton MD at [place] [facility] [place] N/A: Chest JNJ : [employer] 06/02/2019 M654G / / [id number] Graft Gelweave 8x15 088089 - [id number] - [id number] Implanted:Qty: 1 on 05/29/2015 by [place] Shelton MD at [place] [facility] [place] Right: Axilla [employer] : CARDIO SYS 05/02/2020 458816 / [id number] / [id number] Description:implanted in rig ht axillary Graft Gelweave 8x15 115933 - [id number] - [id number] Implanted:Qty: 1 on 05/29/2015 by Smith Shelton MD at OR [facility] [place] Left: Carotid [employer] : CARDIO SYS 05/02/2020 885195 / [id number] Gelweave Woven Vascular Prosthesis, Branched Arch Graft W/ Radiopaque Markers Implanted:Qty: 1 on 05/29/2015 by Smith Shelton MD at OR [facility] [place] N/A: Aorta [employer] : VASCUTEK 04/02/2020 [id number] / [id number] Description:Diameter: 30/12/ 8/8 x 10 mm Usable Length: 20 cm +2@15 cm +2@30 cm Sut Steel 6 M654g - [id number] Implanted:Qty: 4 on 05/29/2015 by Smith Shelton MD at OR [facility] [place] N/A: Chest JNJ : [employer] 06/02/2019 M654G / / [id number] [place] Ptfe 6x6in X5 - [id number] Implanted:Qty: 1 on 05/29/2015 by Smith Shelton MD at OR [facility] [place] N/A: Aorta CR BARD : PERIPHERAL VASCULAR 12/03/2019 [id number] / / [id number] Description:felt cut to surg lazaro's desired preference Mesh Vicryl 12 X 12 Vkm-L - [id number] Implanted:Qty: 1 on 12/30/2019 by Mihir Calvo MD at OR [facility] [place] N/A: Abdomen JNJ : [employer] 04/02/2024 VKM-L / / [id number] Prolene Mesh - [id number] Implanted:Qty: 1 on 12/30/2019 by Mihir Calvo MD at OR [facility] [place] N/A: Abdomen Newsy [id number] 03/02/2023 SPM3XL / / [id number] documented as of this encounter Visit Diagnoses [...] the patient have Health Care Power of Software Engineer Intern? Yes, not currently available Code Status History [...] the patient have Health Care Power of Software Engineer Intern? No Full Code 12/29/2019 7:58 PM 12/30/2019 6:18 PM This order reflects the patients wishes and were consensually agreed upon. Question Answer Comments Discussion of Advance Directives occurred with: Not Discussed Does the patient have a Living Will? No Does the patient have Health Care Power of Software Engineer Intern? No Care Teams Basket Filler Relationship Specialty Start Date End Date Brian Guido MD [address] [place] [address] [place] [id number] PCP - General Family Medicine 12/27/16 documented as of this encounter
--- OUTSIDE RECORDS SUMMARY | 2024-05-26 16:51 | External Medical Summary | Summary of Care ---
Author Name Unknown Organization [facility] Address [address] [place] [address] Phone [phone] Care Team Providers Care Pest Control Service Sales Agent Name Role Phone Brian Guido MD Primary Care Provider + [phone] Reason for Visit * Reason Onset Date Comments Medication Refill 12/22/2023 Encounter Details Date Type Department Care Team (Late st Contact Info) Description 12/22/2023 Refill Family Medicine [address] [phone] Brian Guido MD [address] [place] [address] [place] [address] Anxiety disorder due to known physiological condition; DDD (degenerative disc disease), lumbar; Generalized anxiety disorder Allergies No known active allergiesdocumented as of this encounter (statuses as of 2023) Medications Medication Sig Dispensed Refills Start Date [...] post mechanical aortic valve replacement,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 Or take as instructed by the [facility] 270 Tablet 3 06/23/2023 [...] s:Morbid obesity with BMI of 50.0-59.9, adult ([facility]),Pre-operative examination take 2 tabs by mouth every 8 hours pain after surgery for 3 days 18 Tablet 0 07/30/2023 Active Ondansetron HCl 4 MG Oral TabletIndications:M orbid obesity with BMI of 50.0-59.9, adult ([facility]),Pre-operative examination 1 tablet by mouth every 8 hours as needed for nausea after surgery. 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 LBBB (left bundle branch block) 12/04/2018 Generalized anxiety disorder 08/14/2017 Dyslipidemia, goal LDL below 100 06/14/2016 Status post mechanical aortic valve replacement 07/18/2014 Thoracic aortic aneurysm 07/12/2014 Anxiety disorder DDD (degenerative disc disease), lumbar Overview: mostly L5 Primary hypertension documented as of this encounter (statuses as of 2023) Resolved Problems Problem Noted Date Diagnosed Date [...] as of this encounter (statuses as of 2023) Immunizations Name Administration Dates Next Due Haemophilius [...] encounter Miscellaneous Notes * Telephone Encounter - Bennett Gamez RPh - 2023 8:06 AM EST Signed Prescriptions: Disp Refills DULoxetine HCl 60 MG Oral Capsule Delayed *90 Cap*2 Sig: One daily with 30 mg for dose of 90 mgAuthorizing Provider: CHRISTOPHER JULIEN documented in this encounter Plan of Treatment Upcoming Encounters Date Type Department Care Team (Late st Contact Info) Description 12/25/2023 10:10 AM EST Laboratory Laboratory [address] [place] [phone] [place] [address] 12/26/2023 6:15 AM EST Anticoagulation Pharmacy Call Center [phone] [place] [address] [facility] 58 60 [facility] [place] [address] 01/06/2024 1:40 PM EST Office Visit Family Medicine [address] [place] [phone] Christopher Julien [address] [place] [address] 01/21/2024 1:30 PM EDT Office Visit Cardiology, [facility] [address] [place] [address] Pepe Dupont MD [address] [place] [address] 02/24/2024 2:30 PM EDT Telemedicine General Surgery, [place] [address], [place] [phone] Yomi Barros PA-C [address] [place] [address] 03/05/2024 11:20 AM EDT Telemedicine Nutrition & Weight Management, [facility] [address] [place] [address] Misa Katz PA-C [address] [place] [address] 04/23/2024 11:00 AM EDT Office Visit Sleep Disorders Ctr [facility] [address] [place] [phone] Isabella Maynard DO [address] [place] [address] 06/04/2024 3:50 PM EDT Telemedicine Nutrition & Weight Management, [facility] [place] [address] Dulce Pace RDN [address] [place] [address] 09/02/2024 2:30 PM EDT Nutrition Services Nutrition & Weight Management, [facility] [address] [facility] [place] [address] Dulce Pace RDN [address] [place] [address] 09/02/2024 3:40 PM EDT Office Visit Nutrition & Weight Management, [facility] [address] [facility] [place] [address] Misa Katz PA-C [address] [facility] [place] [address] Health Maintenance Due Date Last Done Comments [...] this encounter Medical Devices Implanted Type Area Manager Bar Device Identifier Shelf Expiration Date Model / Serial / Lot Sut Steel 6 M654g - [id number] Implanted:Qty: 6 on 07/15/2014 at OR [facility] N/A: Chest JNJ : [employer] 05/03/2018 M654G / / [id number] Graft Gelweave 8x15 [id number] - [id number] Implanted:Qty: 1 on 07/15/2014 at OR [facility] Right: Axilla [employer] : CARDIO SYS 05/03/2019 [id number] / [id number] / [id number] Kirksey Ptfe 6x6in X5 - [id number] Implanted:Qty: 1 on 07/15/2014 at OR [facility] BARD : PERIPHERAL VASCULAR 11/14/2018 [id number] / / [id number] Graft Valved Valsalva 27mm - [id number] Implanted:Qty: 1 on 07/15/2014 at OR [facility] [place] N/A: Aorta [employer] 12/15/2017 [id number]-5 15 / [id number] / Sut Steel 6 M654g - [id number] Implanted:Qty: 1 on 05/29/2015 by Smith Shelton MD at OR [facility] [place] N/A: Chest JNJ : [employer] 06/02/2019 M654G / / [id number] Graft Gelweave 8x15 [id number] - [id number] - [id number] Implanted:Qty: 1 on 05/29/2015 by Smith Shelton MD at OR [facility] [place] [place] Right: Axilla [employer] : CARDIO SYS 05/02/2020 [id number] / [id number] / [id number] Description:implanted in rig ht axillary Graft Gelweave 8x15 399174 - [id number] - [id number] Implanted:Qty: 1 on 05/29/2015 by Smith Shelton MD at OR [facility] [place] Left: Carotid [employer] : C[employer]IO SYS 05/02/2020 [id number] / [id number] Gelweave Woven Vascular Prosthesis, Branched Arch Graft W/ Radiopaque Markers Implanted:Qty: 1 on 05/29/2015 by Smith Shelton MD at OR [facility] [place] N/A: Aorta [employer] : VASCUTEK 04/02/2020 [id number] / [id number] Description:Diameter: 30/12/ 8/8 x 10 mm Usable Length: 20 cm +2@15 cm +2@30 cm Sut Steel 6 M654g - [id number] Implanted:Qty: 4 on 05/29/2015 by Smith Shelton MD at OR [facility] [place] N/A: Chest JNJ : [employer] 06/02/2019 M654G / / [id number] Kirksey Ptfe 6x6in X5 - [id number] Implanted:Qty: 1 on 05/29/2015 by Smith Shelton MD at OR [facility] N/A: Aorta CR BARD : PERIPHERAL VASCULAR 12/03/2019 [id number] / / [id number] Description:felt cut to surg lazaro's desired preference Mesh Vicryl 12 X 12 Vkm-L - [id number] Implanted:Qty: 1 on 12/30/2019 by Mihir Calvo MD at OR [facility] [place] N/A: Abdomen JNJ : [employer] 04/02/2024 VKM-L / / [id number] Prolene Mesh - [id number] Implanted:Qty: 1 on 12/30/2019 by Mihir Calvo MD at OR [facility] [place] N/A: Abdomen TK & TK [facility] [id number] 03/02/2023 [id number] / / [id number] documented as of this encounter Visit Diagnoses [...] the patient have Health Care Power of Clinical Interviewer? Yes, not currently available Code Status History [...] the patient have Health Care Power of Clinical Interviewer? No Full Code 12/29/2019 7:58 PM 12/30/2019 6:18 PM This order reflects the patients wishes and were consensually agreed upon. Question Answer Comments Discussion of Advance Directives occurred with: Not Discussed Does the patient have a Living Will? No Does the patient have Health Care Power of Clinical Interviewer? No Care Teams Pest Control Service Sales Agent Relationship Specialty Start Date End Date Brian Guido MD [address] [place] [address] [place] [address] PCP - General Family Medicine 12/27/16 documented as of this encounter
--- OUTSIDE RECORDS SUMMARY | 2024-05-26 16:51 | External Medical Summary | Summary of Care ---
Author Name Unknown Organization [facility] Address [address] [place] [address] Phone [phone] Care Team Providers Care Investigator Narcotics Name Role Phone Brian Guido MD Primary Care Provider + [phone] Reason for Visit * Reason Comments Dosage Adjustment Via Phone (anticoag Cl inic) Encounter Details Date Type Department Care Team (Latest Contact Info) Description 12/17/2023 6:15 AM EST Anticoagulation Pharmacy Call Center [address] [place] [address] [facility] 58 [address] [place] [address] Status post mechanical aortic valve replacement*; Pre-operative examination; Morbid obesity (HCC) Allergies No known active allergiesdocumented as of this encounter (statuses as of 12/17/2023) Medications Medication Sig Dispensed Refills Start Date End Date Status DULoxetine HCl 30 MG Oral Capsule Delayed Release Particles (Cymbalta)Indication s:Anxiety disorder due to known physiological condition TAKE 1 CAPSULE BY MOUTH ONCE DAILY DO NOT CUT, CRUSH, OR CHEW. TAKE WITH 60 MG DOSE FOR A TOTAL DAILY DOSE OF 90 MG 90 Capsule 2 01/02/2023 Active DULoxetine HCl 60 MG Oral Capsule Delayed Release Particles (Cymbalta)Indication s:Anxiety disorder due to known physiological condition,DDD (degenerative disc disease), lumbar,Generalized anxiety disorder One daily with 30 mg for dose of 90 mg 90 Capsule 2 01/02/2023 Active Warfarin Sodium 5 MG Oral Tablet (Coumadin)Indication s:Status post mechanical aortic valve replacement,Anticoag ulation management encounter,half-way current use of 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 Or take as instructed by the [facility] 270 Tablet 3 06/23/2023 [...] with BMI of 50.0-59.9, adult (HCC),Pre-operative examination Take 1 cap by mouth daily [...] before bedtime. 180 Tablet 3 11/17/2023 Active Hospital, Clinic, or Other Facility Administered Medication Ordered Dose Route Frequency Start Date End Date Status vitamin b-12 (Cyanocobalamin) inj 1,000 mcgIndications:S/P gastric bypass 1000 mcg IM [id number] 12/16/2023 11/16/2024 Active documented as of this encounter (statuses as of 12/17/2023) Active Problems Problem Noted Date Diagnosed Date Chronic heart failure with preserved ejection fr action 10/15/2023 Congenital bicuspid aortic valve 10/15/2023 Gastroesophageal reflux disease 10/15/2023 TIMMY (generalized anxiety disorder) 10/15/2023 GUILELRMO on CPAP 10/15/2023 Hyperlipidemia 10/15/2023 Left bundle branch block 10/15/2023 H/O mechanical aortic valve replacement 10/15/20 History of aortic dissection 10/15/2023 Hypertension 10/15/2023 S/P gastric bypass 10/14/2023 GUILLERMO (obstructive sleep apnea) 10/14/2023 HFrEF (heart failure with reduced ejection fract ion) 10/14/2023 Pre-operative examination 07/30/2023 [facility] OTHER*[id number] 01/20/2023 Morbid obesity 12/20/2021 Diffuse axonal brain injury 04/09/2021 LBBB (left bundle branch block) 12/04/2018 Generalized anxiety disorder 08/14/2017 Dyslipidemia, goal LDL below 100 06/14/2016 Status post mechanical aortic valve replacement 07/18/2014 Thoracic aortic aneurysm 07/12/2014 Anxiety disorder DDD (degenerative disc disease), lumbar Overview: mostly L5 Primary hypertension documented as of this encounter (statuses as of 12/17/2023) Resolved Problems Problem Noted Date Diagnosed Date [...] as of this encounter (statuses as of 12/17/2023) Immunizations Name Administration Dates Next Due Haemophilius B (HIB), unspecified 08/13/1988 MMR - Measles/Mumps/Rubella Vaccine 02/09/1992,0 06/11/1988 OPV - Polio Virus Vaccine (Oral) 992,06/11/1988,04/24/1987, 987 TDAP (age 10 and older)(Boostrix) 11/06/2015 documented as of this encounter Social History Tobacco Use Types Packs/Day Years Used Date Smoking Tobacco: Former Cigarettes 1 12 Q uit: 04/03/2015 Smokeless Tobacco: Never Alcohol Use Standard [...] this encounter Progress Notes * Aspen Neff PHARM Tech - 12/17/2023 8:24 AM EST Contacts Type Contact Phone/Fax 12/17/2023 08:21 AM EST Phone (Outgoing) Deep Fong (Self) [phone] (M) Spoke to Patient Subjective Patient Findings Negatives: Signs/symptoms of bleeding, Change in health, Change in activity, Upcoming invasive procedure, Missed doses, Extra doses, Change in medications, Change in diet/appetite, Bruising Advised patient to contact Anticoagulation Clinic if any unusual bruising or bleeding, recent illness, changes in medication, or questions/concerns. PT/INR results, Coumadin dose instructions, and next PT/INR date communicated as noted by Pharmacist: Yes GIANLUCA WILKERSON 12/17/2023, 8:24 AM * Ciera Coleman [facility] - 12/16/2023 4:22 PM EST Images from the original note were not included. Coumadin Clinic (region specific) Objective Current Warfarin Dose As of 12/17/2023 Warfarin maintenance plan: 15 mg (5 mg x 3) every Tue, Jody, Sat; 10 mg (5 mg x 2) all other days INR Result As of 12/17/2023 INR goal: 2.5-3.0 INR used for dosin.1 (12/16/2023) Assessment & Plan Warfarin Plan As of 12/17/2023 Full warfarin instructions: 12/17: 15 mg; Otherwise 10 mg every Mon, Wed, Fri; 15 mg all other days Next INR check: 12/25/2023 Repeat PT/INR in 1.5 week(s) Weekly dose: increased Additional Dosing Information: Description [facility] to contact patient with dose instructions as noted. Ciera Coleman RPh 12/16/2023, 4:23 PM documented in this encounter Plan of Treatment Upcoming Encounters Date Type Department Care Team (Late st Contact Info) Description 12/25/2023 10:10 AM EST Laboratory Laboratory [address] [place] [phone] [facility] [address] [place] [address] 12/26/2023 6:15 AM EST Anticoagulation Pharmacy Call Center [address] [place] [address] [facility] 58 [address] [place] [address] 01/06/2024 1:40 PM EST Office Visit Family Medicine [address] [place] [phone] Christopher Gorman [address] [place] [address] 01/21/2024 1:30 PM EDT Office Visit Cardiology, [facility] [address] [place] [address] Pepe Dupont MD [address] [place] [address] 02/24/2024 2:30 PM EDT Telemedicine General Surgery, [place] [address] [place] [address] Yomi Barros PA-C [address] [place] [address] 03/05/2024 11:20 AM EDT Telemedicine Nutrition & Weight Management, [facility] [address] [place] [address] Misa Katz PA-C [address] [place] [address] 04/23/2024 11:00 AM EDT Office Visit [facility] [place] [phone] Isabella Maynard DO [address] [place] [address] 06/04/2024 3:50 PM EDT Telemedicine Nutrition & Weight Management, [facility] [address] [place] [address] Dulce Pace RDN [address] [place] [address] 09/02/2024 2:30 PM EDT Nutrition Services Nutrition & Weight Management, [facility] [place] [address] Dulce Pace RDN [address] [place] [address] 09/02/2024 3:40 PM EDT Office Visit Nutrition & Weight Management, [facility] [address] [place] [address] Misa Katz PA-C [address] [place] [address] Health Maintenance Due Date Last Done Comments Hepatitis B (1 of 3 - 3-dose series) 1986 COVID-19 Vaccine (#1) 06/22/1987 Depression Screening 01/12/2021 01/13/2020 Influenza Vaccine (FLU shot) (#1) 2023 GFR [...] this encounter Medical Devices Implanted Type Area Electric Motor Control Assembler Device Identifier Shelf Expiration Date Model / Serial / Lot Graft Valved Valsalva 27mm - [id number] Implanted:Qty : 1 on 07/15/2014 at OR [place] N/A: Aorta [employer] 12/15/2017 27VAVGJ-5 15 / [id number] / Sut Steel 6 M654g - [id number] Implanted:Qty : 1 on 05/29/2015 by Smith Shelton MD at OR [place] N/A: Chest JNJ : [employer] 06/02/2019 M654G / / [id number] Prolene Mesh - [id number] Implanted:Qty : 1 on 12/30/2019 by Mihir Calvo MD at OR [place] N/A: Abdomen TK & TK [facility] [id number] 03/02/2023 [id number] / / [id number] documented as of this encounter Visit Diagnoses [...] the patient have Health Care Power of Roof Shingler? Yes, not currently available Code Status History [...] the patient have Health Care Power of Roof Shingler? No Full Code 12/29/2019 7:58 PM 12/30/2019 6:18 PM This order reflects the patients wishes and were consensually agreed upon. Question Answer Comments Discussion of Advance Directives occurred with: Not Discussed Does the patient have a Living Will? No Does the patient have Health Care Power of Roof Shingler? No Care Teams Investigator Narcotics Relationship Specialty Start Date End Date Brian Guido MD [address] [place] [address] [place] [id number] PCP - General Family Medicine 12/27/16 documented as of this encounter
--- OUTSIDE RECORDS SUMMARY | 2024-05-26 16:51 | External Medical Summary | Summary of Care ---
Author Name Unknown Organization [facility] Address [address] [place] [address] Phone [phone] Care Team Providers Care Chief Drafter Name Role Phone Brian Guido MD Primary Care Provider + [phone] Reason for Visit * Evaluate & Treat - Unlimited Visits (Within 10 days (routine)) - Pending Review Specialty Diagnoses / Procedures Referred By Mansi jones Referred To Contact Psychology Diagnoses Current mild episode of major depressive disorder without prior episode (HCC) Lorin Burt PsyD [address] [place] [address] Referral ID Status Reason Start Date Expiration Date Visits Requested Visits Authorized [id number] Pending Review Specialty Services Required 03/24/[phone] Encounter Details Date Type Department Care Team ([facility] st Contact Info) Description 01/06/2024 10:00 AM [facility], [place] [address] [place] [address] Daisy Proctor, [facility] [address], [place] [id number] Current mild episode of major depressive disorder without prior episode (HCC)* Allergies No known active allergiesdocumented as [...] post mechanical aortic valve replacement,Anticoag ulation management encounter,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 Take 2-3 [...] obesity with BMI of 50.0-59.9, adult ([facility]),Pre-operative examination take 2 tabs by mouth every 8 hours pain after surgery for 3 days 18 Tablet 0 07/30/2023 Active Ondansetron HCl 4 MG Oral TabletIndications:Mo rbid obesity with BMI of 50.0-59.9, adult ([facility]),Pre-operative examination 1 tablet by mouth every [...] 1,000 mcgIndications:S/P gastric bypass 1000 mcg IM [id number] 12/16/2023 11/16/2024 Active documented as of this [...] ejection fract ion) 10/14/2023 Pre-operative examination 07/30/2023 [place] [facility] OTHER*[id number] 01/20/2023 Morbid obesity 12/20/2021 Diffuse axonal brain [...] loss anemia 07/0 07/2015 Dental caries 11/18/2023 Morbid obesity with [...] of this encounter Progress Notes * Daisy Proctor LCSW - 01/06/2024 10:13 AM EST Deep showed at 1007, for a new assessment. This instructional writer did make him aware that this appointment bishnu assessment and would take approximately one hour. He was unable to complete this today. Reached out to scheduling to reschedule for an assessment. documented in this encounter Plan of Treatment Upcoming Encounters Date Type Department Care Team (Late st Contact Info) Description 01/06/2024 1:40 PM EST Office Visit Family Medicine [address] [place] [phone] Christopher Gorman CRNP [address] [facility] [place] [address] 01/09/2024 6:15 AM EST Anticoagulation Pharmacy Call Center WB 58-60 [facility] [place] [address] [facility] 58 60 [facility] [place] [address] 01/21/2024 1:30 PM EDT Office Visit Cardiology, [facility] [address] [place] [address] Pepe Dupont MD [address] [place] [address] 02/24/2024 2:30 PM EDT Telemedicine General Surgery, [place] [address] [place] [address] Yomi Barros PA-C [address] [place] [address] 03/05/2024 11:20 AM EDT Telemedicine Nutrition & Weight Management, [facility] [address] [place] [address] Misa Katz PA-C [address] [place] [address] 04/23/2024 11:00 AM EDT Office Visit Sleep Disorders Ctr [facility] [address] [place] [phone] Isabella Maynard DO [address] [place] [address] 06/04/2024 3:50 PM EDT Telemedicine Nutrition & Weight Management, [facility] [address] [place] [address] Dulce Pace RDN [address] [place] [address] 09/02/2024 2:30 PM EDT Nutrition Services Nutrition & Weight Management, [facility] [address] [place] [address] Dulce Pace RDN [address] [place] [address] 09/02/2024 3:40 PM EDT Office Visit Nutrition & Weight Management, [facility] [address] [place] [address] Misa Katz PA-C [address] [place] [address] Scheduled Referrals Name Type Priority Associated Diagnoses Orde r Schedule ADULT/PEDS PSYCHOLOGY REFERRAL OP Referral Within 10 days (routine) Current mild episode of major depressive disorder without prior episode (HCC) Ordered: 03/24/2023 Health Maintenance Due Date Last Done Comments Hepatitis B (1 of 3 - 19+ 3-dose series) 2005 Depression Screening 01/12/2021 01/13/2020 COVID-19 Vaccine (2022- season) 2023 Influenza Vaccine (FLU shot) (#1) [...] this encounter Medical Devices Implanted Type Area Medical Recruiter Device Identifier Shelf Expiration Date Model / Serial / Lot Sut Steel 6 M654g - [id number] [place] 6 [place] [facility] [place] Chest JNJ : [employer] 05/03/2018 M654G / / [id number] Graft Gelweave 8x15 [id number] - [id number] [place]planted:Qty: 1 on 07[place]15/2014 [place] [facility] [place]: Axilla [employer] : CARDIO SYS 05/03/2019 [id number] / [id number] / [id number] Hodge Ptfe 6x6in X5 - [id number] Implanted:Qty: 1 on 07/15/2014 [place] [facility] [place] BARD : PERIPHERAL VASCULAR 11/14/2018 [id number] / / [id number] Graft Valved Valsalva 27mm - [id number] Implanted:Qty: 1 on 07/15/2014 [place] [facility] [place] N/A: Aorta [employer] 12/15/2017 [id number]-5 15 / [id number] / Sut Steel 6 M654g - [id number] Implanted:Qty: 1 on 05/29/2015 by Smith Shelton [place] [facility] [place]: Chest JNJ : [employer] 06/02/2019 M654G / / [id number] Graft Gelweave 8x15 [id number] - [id number] - [id number] Implanted:Qty: 1 on 05/29/2015 by Smith Shelton [place] [facility] [place]: Axilla [employer] : CARDIO SYS 05/02/2020 [id number] / [id number] / [id number] Description:implanted in rig ht axillary Graft Gelweave 8x15 [id number] - [id number] - [id number] Implanted:Qty: 1 on 05/29/2015 by Smith Shelton MD [place] [facility] [place] Left: Carotid [employer] : CARDIO SYS 05/02/2020 [id number] / [id number] / [id number] Gelweave Woven Vascular Prosthesis, Branched Arch Graft W/ Radiopaque Markers Implanted:Qty: 1 on 05/29/2015 by Smith Shelton [place] [facility] [place]A: Aorta [employer] : VASCUTEK 04/02/2020 [id number] / [id number] Description:Diameter: 30/12/ 8/8 x 10 mm Usable Length: 20 cm +2@15 cm +2@30 cm Sut Steel 6 M654g - [id number] Implanted:Qty: 4 on 05/29/2015 by Smith Shelton [place] [facility] [place]A: Chest JNJ : [employer] 06/02/2019 M654G / / [id number] Hodge Ptfe 6x6in X5 - [id number] Implanted:Qty: 1 on 05/29/2015 by Smith Shelton [place] [facility] [place]A: Aorta CR BARD : PERIPHERAL VASCULAR 12/03/2019 [id number] / / [id number] Description:felt cut to surg lazaro's desired preference Mesh Vicryl 12 X 12 Vkm-L - [id number] Implanted:Qty: 1 on 12/30/2019 by Mihir Calvo MD [place] [facility] [place]A: Abdomen JNJ : [employer] 04/02/2024 VKM-L / / [id number] Prolene Mesh - [id number] Implanted:Qty: 1 on 12/30/2019 by Mihir Calvo MD [place] [facility] [place]A: Abdomen [employer] [id number] 03/02/2023 SPM3XL / / [id number] documented as of this encounter Visit Diagnoses Diagnosis Current mild episode of major depressive disorder without prior episode (HCC)- Primary documented in this encounter Advance Directives Latest Code Status on File Code Status Date Activated Date Inactivated Comments Full Code 10/14/2023 6:30 PM 10/17/2023 4:50 PM Th is order reflects the patients wishes and were consensually agreed upon. Question Answer Comments Discussion of Advance Directives occurred with: Patient Does the patient have a Living Will? Yes, not currently available Does the patient have Health Care Power of Air Hose Coupler? Yes, not currently available Code Status History [...] the patient have Health Care Power of Air Hose Coupler? No Full Code 12/29/2019 7:58 PM 12/30/2019 6:18 PM This order reflects the patients wishes and were consensually agreed upon. Question Answer Comments Discussion of Advance Directives occurred with: Not Discussed Does the patient have a Living Will? No Does the patient have Health Care Power of Air Hose Coupler? No Care Teams Chief Drafter Relationship Specialty Start Date End Date Brian Guido MD [address] [place] [address] [place] [address] PCP - General Family Medicine 12/27/16 documented as of this encounter
--- OUTSIDE RECORDS SUMMARY | 2024-05-26 16:51 | External Medical Summary | Summary of Care ---
Author Name Unknown Organization [facility] Address [address] [place] [address] Phone [phone] Care Team Providers Care Mender Knit Goods Name Role Phone Brian Guido MD Primary Care Provider + [phone] Reason for Visit * Reason Onset Date Comments Mycode Lab Reorder 01/06/2024 Encounter Details Date Type Department Care Team (Late st Contact Info) Description 01/06/2024 Orders Only Outcomes Research Department [address] [place] [address] Marcia Carroll CHRA MyCode Research Other*[id number]* Allergies No known active allergiesdocumented as of [...] post mechanical aortic valve replacement,Anticoag ulation management encounter,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 Or take as instructed by the [facility] 270 Tablet 3 [...] 1,000 mcgIndications:S/P gastric bypass 1000 mcg IM [id number] 12/16/2023 11/16/2024 Active documented as of this [...] ejection fract ion) 10/14/2023 Pre-operative examination 07/30/2023 [place] [facility] OTHER*[id number] 01/20/2023 Morbid obesity 12/20/2021 Diffuse axonal brain [...] as of this encounter Progress Notes * Marcia Carroll CHRA - 01/06/2024 9:21 AM EST MyCode lab reordered. documented in this encounter Plan of Treatment Upcoming Encounters Date Type Department Care Team (Late st Contact Info) Description 01/06/2024 10:00 AM EST Telemedicine [facility], [place] [address] [place] [address] Daisy Proctor, [facility] [address] [place] [address] 01/06/2024 1:40 PM EST Office Visit Family Medicine [address] [place] [phone] Christopher Gorman [address] [place] [address] 01/09/2024 6:15 AM EST Anticoagulation Pharmacy Call Center 58[address] [facility] [place] [address] [facility] 58 60 [facility] [place] [address] 01/21/2024 1:30 PM EDT Office Visit Cardiology, [facility] [address] [place] [address] Pepe Dupont MD [address] [place] [address] 02/24/2024 2:30 PM EDT Telemedicine General Surgery, [place] [address] [place], [place] [phone] Yomi Barros PA-C [address] [place], [place] [address] 03/05/2024 11:20 AM EDT Telemedicine Nutrition & Weight Management, [facility] [address] [place] [address] Misa Katz PA-C 132 [facility] [place] [address] 04/23/2024 11:00 AM EDT Office Visit Sleep Disorders Ctr [facility] [address] [place] [phone] Isabella Maynard DO [address] [place] [address] 06/04/2024 3:50 PM EDT Telemedicine Nutrition & Weight Management, [facility] [address] [place] [address] Dulce Pace RDN [address] [place] [address] 09/02/2024 2:30 PM EDT Nutrition Services Nutrition & Weight Management, [facility] [address] [place] [address] Dulce Pace RDN [address] [place] [address] 09/02/2024 3:40 PM EDT Office Visit Nutrition & Weight Management, [facility] [address] [place] [address] Misa Katz PA-C [address] [place] [address] Scheduled Orders Name Type Priority Associated Diagnoses Orde r Schedule MYCODE SUBSEQUENT ADULT Lab Routine MyCode Research Other*[id number] Every 6 Months for 2 Occurrences starting 01/06/2024 until 01/25/2025 Health Maintenance Due Date Last Done Comments [...] this encounter Medical Devices Implanted Type Area Integration Engineer Device Identifier Shelf Expiration Date Model / Serial / Lot Walt Dc 6 M654g - [id number] Implanted:Qty: 6 on 07/15/2014 [place] [facility] [place]A: Chest JNJ : [employer] 05/03/2018 M654G / / [id number] Graft Gelweave 8x15 [id number] - [id number] Implanted:Qty: 1 on 07/15/2014 [place] [facility] [place] Right: Axilla [employer] : CARDIO SYS 05/03/2019 [id number] / [id number] / [id number] [place] Ptfe 6x6in X5 - [id number] Implanted:Qty: 1 on 07/15/2014 at [place] [facility] [place] CR BARD : PERIPHERAL VASCULAR 11/14/2018 [id number] / / [id number] Graft Valved Valsalva 27mm - [id number] Implanted:Qty: 1 on 07/15/2014 at [place] [facility] [place] N/A: Aorta [employer] 12/15/2017 27VAVGJ-5 15 / [id number] / Sut Steel 6 M654g - [id number] Implanted:Qty: 1 on 05/29/2015 by Smith Shelton MD [place] [facility] [place] N/A: Chest JNJ : [employer] 06/02/2019 M654G / / [id number] Graft Gelweave 8x15 [id number] - [id number] - [id number] Implanted:Qty: 1 on 05/29/2015 by Smith Shelton MD [place] [facility] [place] Right: Axilla [employer] : CARDIO SYS 05/02/2020 [id number] / [id number] / [id number] Description:implanted in rig ht axillary Graft Gelweave 8x15 [id number] - [id number] - [id number] Implanted:Qty: 1 on 05/29/2015 by Smith Shelton MD at [place] [facility] [place] Left: Carotid [employer] : CARDIO SYS 05/02/2020 [id number] / [id number] / [id number] Gelweave Woven Vascular Prosthesis, Branched Arch Graft W/ Radiopaque Markers Implanted:Qty: 1 on 05/29/2015 by Smith Shelton MD [place] [facility] [place] N/A: Aorta [employer] : VASCUTEK 04/02/2020 [id number] / [id number] Description:Diameter: 30/12/ 8/8 x 10 mm Usable Length: 20 cm +2@15 cm +2@30 cm Sut Steel 6 M654g - [id number] Implanted:Qty: 4 on 05/29/2015 by Smith Shelton MD [place] [facility] [place] N/A: Chest JNJ : [employer] 06/02/2019 M654G / / [id number] [place] Ptfe 6x6in X5 - [id number] Implanted:Qty: 1 on 05/29/2015 by Smith Shelton MD [place] [facility] [place] N/A: Aorta CR BARD : PERIPHERAL VASCULAR 12/03/2019 [id number] / / [id number] Description:felt cut to surg lazaro's desired preference Mesh Vicryl 12 X 12 Vkm-L - [id number] Implanted:Qty: 1 on 12/30/2019 by Mihir Calvo MD at [place] [facility] [place] N/A: Abdomen JNJ : [employer] 04/02/2024 VKM-L / / [id number] Prolene Mesh - [id number] Implanted:Qty: 1 on 12/30/2019 by Mihir Calvo MD at [place] [facility] [place] N/A: Abdomen [employer] [facility] [id number] 03/02/2023 SPM3XL / / [id number] documented as of this encounter Visit Diagnoses Diagnosis MyCode Research Other*[id number]- Primary documented in this encounter Advance Directives [...] the patient have Health Care Power of Automotive Paint Technician? Yes, not currently available Code Status History [...] the patient have Health Care Power of Automotive Paint Technician? No Full Code 12/29/2019 7:58 PM 12/30/2019 6:18 PM This order reflects the patients wishes and were consensually agreed upon. Question Answer Comments Discussion of Advance Directives occurred with: Not Discussed Does the patient have a Living Will? No Does the patient have Health Care Power of Automotive Paint Technician? No Care Teams Mender Knit Goods Relationship Specialty Start Date End Date Brian Guido MD [address] [place] [address] [place] [address] PCP - General Family Medicine 12/27/16 documented as of this encounter
--- OUTSIDE RECORDS SUMMARY | 2024-05-26 16:51 | External Medical Summary | Summary of Care ---
Author Name Unknown Organization [facility] Address [address] [place] [address] Phone [phone] Care Team Providers Care Industrial Relations Specialist Name Role Phone Brian Guido MD Primary Care Provider + [phone] Reason for Visit * Reason Comments Outpatient Testing Encounter Details Date Type Department Care Team (Late st Contact Info) Description 12/16/2023 10:10 AM EST Laboratory Laboratory, [facility] [address] [place] [phone] [facility] [address] [place] [address] Status post mechanical aortic valve replacement; S/P gastric bypass Allergies No known active allergiesdocumented as of this encounter (statuses as of 12/16/2023) Medications Medication Sig Dispensed Refills Start Date [...] evening. Or take as instructed by the [facility] 270 Tablet 3 06/23/2023 [...] s:Morbid obesity with BMI of 50.0-59.9, adult ([facility]),Pre-operative examination take 2 tabs by mouth every 8 hours pain after surgery for 3 days 18 Tablet 0 07/30/2023 Active Ondansetron HCl 4 MG Oral TabletIndications:M orbid obesity with BMI of 50.0-59.9, adult (HCC),Pre-operative examination 1 tablet by mouth every 8 hours as needed for nausea after surgery. 30 Tablet 1 07/30/2023 Active Omeprazole 20 MG Oral Capsule Delayed Release (PriLOSEC)Indicatio ns:Morbid obesity with BMI of 50.0-59.9, adult (HCC),Pre-operative [...] before bedtime. 180 Tablet 3 11/17/2023 Active Enoxaparin Sodium 150 MG/ML Injection Solution Prefilled Syringe (Lovenox) Inject 150 mg (one syringe) under the skin in the morning and 150 mg (one syringe) before bedtime. 6 mL 0 10/17/2023 Discontinue d(Medicatio n List Clean Up) Spironolactone 25 MG Oral Tablet (Aldactone) Take 1 Tablet by mouth in the morning. 1 Tablet 0 10/18/2023 4 Discontinue d(Medicatio n List Clean Up) Cyclobenzaprine HCl 10 MG Oral Tablet (Flexeril) Take 1 Tablet by mouth every 8 hours as needed for Muscle spasms. 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 LBBB (left bundle branch block) 12/04/2018 Generalized anxiety disorder 08/14/2017 Dyslipidemia, goal LDL below 100 06/14/2016 Status post mechanical aortic valve replacement 07/18/2014 Thoracic aortic aneurysm 07/12/2014 Anxiety disorder DDD (degenerative disc disease), lumbar Overview: mostly L5 Primary hypertension documented as of this encounter (statuses as of 12/16/2023) Resolved Problems Problem Noted Date Diagnosed Date [...] as of this encounter (statuses as of 12/16/2023) Immunizations Name Administration Dates Next Due Haemophilius [...] Care Team (Late st Contact Info) Description 12/17/2023 6:15 AM EST Anticoagulation Pharmacy Call Center [address] [place] [address] [facility] 58 60 [facility] [place] [address] 01/06/2024 1:40 PM EST Office Visit Family Medicine [address] [place] [phone] Christopher Gorman CRNP [address] [place] [address] [place] [address] 01/21/2024 1:30 PM EDT Office Visit Cardiology, [facility] [address] [facility] [place] [address] Pepe Dupont MD [address] [place] [address] 02/24/2024 2:30 PM EDT Telemedicine General Surgery, [place] [address] [place], [place] [phone] Yomi Barros PA-C [address] [place] [address] 03/05/2024 11:20 AM EDT Telemedicine Nutrition & Weight Management, [facility] [address] [facility] [place] [address] Misa Katz PA-C [address] [place] [address] 04/23/2024 11:00 AM EDT Office Visit Sleep Disorders Ctr [facility] [address] [facility] [place] [phone] Isabella Maynard DO [address] [place] [address] 06/04/2024 3:50 PM EDT Telemedicine Nutrition & Weight Management, [facility] [address] [place] [address] Dulce Pace RDN [address] [place] [address] 09/02/2024 2:30 PM EDT Nutrition Services Nutrition & Weight Management, [facility] [address] [facility] [place] [address] Dulce Pace RDN [address] [place] [address] 09/02/2024 3:40 PM EDT Office Visit Nutrition & Weight Management, [facility] [address] [place] [address] Misa Katz PA-C [address] [place] [address] Pending Results Name Type Priority Associated Diagnoses Date /Time CBC WITH WBC DIFFERENTIAL Lab Routine S/P gastric bypass 12/16/2023 11:22 AM EST IRON SCREEN, INCLUDING TIBC Lab Routine S/P gastric bypass 12/16/2023 11:22 AM EST FERRITIN Lab Routine S/P gastric bypass 12/16/2023 11:22 AM EST CBC Lab Routine S/P gastric bypass 12/16/2023 11:22 AM EST DIFFERENTIAL, AUTOMATED Lab Routine S/P gastric bypass 12/16/2023 11:22 AM EST Health Maintenance Due Date Last Done Comments [...] this encounter Medical Devices Implanted Type Area Clinical Services Professional Device Identifier Shelf Expiration Date Model / Serial / Lot Graft Valved Valsalva 27mm - [id number] Implanted:Qty : 1 on 07/15/2014 [place] [facility] [place] N/A: Aorta [employer] 12/15/2017 27VAVGJ-5 15 / [id number] / Sut Steel 6 M654g - [id number] Implanted:Qty : 1 on 05/29/2015 by Smith Shelton MD [place] [facility] [place]/A: Chest JNJ : [employer] 06/02/2019 M654G / / [id number] Prolene Mesh - [id number] Implanted:Qty : 1 on 12/30/2019 by Mihir Calvo MD [place] [facility] [place]/A: Abdomen [employer] [id number] 03/02/2023 SPM3XL / / [id number] documented as of this encounter Procedures Procedure Name Priority Date/Time Associated Diagnosis Comments PT INR Routine 12/16/2023 9:58 AM EST Status post mechanical aortic valve replacement documented in this encounter Results * (ABNORMAL) PT INR (12/16/2023 9:58 AM EST) Prothrombin Time 24.2(H) 11.6 - 15.2 seconds 12/16/2023 10:35 AM EST [facility] 57-10 INR 2.1(H) 0.8 - 1.2 12/16/2023 10:35 AM EST [facility] 57-10 Blood Venous blood specimen / Unknown Venipuncture / Unknown 12/16/2023 9:58 AM EST 12/16/2023 9:58 AM EST Narrative [facility] 57-10 - 12/16/2023 10:35 AM EST Warfarin Therapy INR: 2.0-3.0 conventional anticoagulation INR: 2.5-3.5 high intensity anticoagulation Shahla Miller [facility] LAB BLOOD ORDERAB LES [facility] [place] 57-10 [address] [place] [address] documented in this encounter Visit Diagnoses Diagnosis Status post mechanical aortic valve replacement S/P gastric bypass Bariatric surgery status documented in this encounter Advance Directives Latest [...] patient have Health Care Power of Banking Services Officer? Yes, not currently available Code Status History [...] patient have Health Care Power of Banking Services Officer? No Full Code 12/29/2019 7:58 PM 12/30/2019 6:18 PM This order reflects the patients wishes and were consensually agreed upon. Question Answer Comments Discussion of Advance Directives occurred with: Not Discussed Does the patient have a Living Will? No Does the patient have Health Care Power of Banking Services Officer? No Care Teams Industrial Relations Specialist Relationship Specialty Start Date End Date Brian Guido MD [address] [place] [address] [place] [address] PCP - General Family Medicine 12/27/16 documented as of this encounter
--- OUTSIDE RECORDS SUMMARY | 2024-05-26 16:51 | External Medical Summary | Summary of Care ---
Author Name Unknown Organization [facility] Address [address] [place] [address] Phone [phone] Care Team Providers Care Information And Referral Director Name Role Phone Brian Guido MD Primary Care Provider + [phone] Reason for Visit * Reason Comments Weight Management Dietary Counseling S/p RYGB 10/03/23 Encounter Details Date Type Department Care Team (Latest Contact Info) Description 12/16/2023 11:20 AM EST Nutrition Services Nutrition & Weight Management, [facility] [address] [facility] [place] [address] Dulce Pace RDN [address] [place] [address] S/P gastric bypass*; Intestinal postoperative nonabsorption; Vitamin D deficiency; Chronic heart failure with preserved ejection fraction (HCC); Abnormal weight gain; Class 3 severe obesity due to excess calories without serious comorbidity with body mass index (BMI) of 45.0 to 49.9 in adult (HCC) Allergies No known active allergiesdocumented [...] post mechanical aortic valve replacement,Anticoa gulation management encounter,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 Or take as instructed by the [facility] 270 Tablet 3 06/23/2023 [...] s:Morbid obesity with BMI of 50.0-59.9, adult ([facility]),Pre-operative examination take 2 tabs by mouth [...] ns:Morbid obesity with BMI of 50.0-59.9, adult ([facility]),Pre-operative examination Take 1 cap by mouth [...] syringe) before bedtime. 6 mL 0 10/17/2023 4 Discontinue d(Medicatio n List Clean Up) Spironolactone [...] ejection fract ion) 10/14/2023 Pre-operative examination 07/30/2023 SHOW LOW RESEARCH OTHER*[id number] 01/20/2023 Morbid obesity 12/20/2021 Diffuse axonal brain [...] Sign Reading Time Taken Comments Blood Pressure 154/66 12/16/2023 10:32 AM EST Pulse 66 12/16/2023 10:32 AM EST Temperature 36.7 C (98.1 F) 12/16/2023 1 0:32 AM EST Respiratory Rate - - Oxygen Saturation - - Inhaled Oxygen Concentration - - Weight 159.3 kg (351 lb 3.1 oz) 024 10:32 AM EST Height - - Body Mass Index 47.63 10/23/2023 9:52 AM EST documented in this [...] as of this encounter Progress Notes * Dulce Pace RDN - 12/16/2023 11:20 AM EST Bariatric Surgery / Nutrition Post-operative Follow-Up S/p: RYGB with Dr Washington 10/14/23 12/16/23 -2 m post op -Doing well overall 11/11/23 -Feeling really well -"Feel like a new person" 10/23/23 -7-10 day post op -Was advised to inc protein from surgery team, most likely increased too much too quickly and has been dealing with nausea/vomiting. -Advised to slow down and take his time increasing protein The patient reports protein intake of 60 grams per day and 64+ oz of fluid intake per day. Food intolerance: No N/V: no Dizziness upon standing: felt a little dizzy after a bit too much work related to heart issues Constipation or other changes in bowels:no Dumping: no Food diaries:tracking three meals Exercise: walking the [employer] Diet level: stage 3, advancing to 4 Pre-surgery weight: 378 lbs Stage 2B Weight today: 373 lbs, -5 lbs or -1.3 % TBW Since Surgery Stage 3 Weight today:349 lbs (self reported), - 29 lbs or -7.6 % TBW since surgery Weight today:351 lbs, -27 lbs or -7.1% TBW since surgery Wt Readings from Last 10 Encounters: 12/16/23 (!) 159.3 kg (351 lb 3.1 oz) 12/16/23 (!) 159.3 kg (351 lb 3.2 oz) 10/23/23 (!) 169.3 kg (373 lb 4.8 oz) 10/23/23 (!) 169.5 kg (373 lb 11.2 oz) 10/23/23 (!) 170.1 kg (375 lb) 10/15/23 (!) 184.6 kg (407 lb) 09/12/23 (!) 173.7 kg (383 lb) 07/30/23 (!) 165.5 kg (364 lb 12.8 oz) 07/24/23 (!) 168.5 kg (371 lb 6.4 oz) 07/11/23 (!) 164 kg (361 lb 9.6 oz) Assessed needs per bariatric protocol: Taking multivitamin:women's does not have Vit K BID, B Complex Taking Vit D: Not taking, started ca citrate instead, will start 5000 IU Latest Reference Range & Units 04/10/23 09:26 25-Hydroxy Vitamin D >19 ng/mL 26 GOALS: Goal Fluid 60 oz per day Goal Protein 60 grams per day Not < or = 800 calories per day Reviewed diet level and materials provided. Patient participates in discussion and can identify foods allowed. Reviewed sample menu, moist cooking (importance of moist protein foods emphasized), and rate of eating. Emphasized importance of chewing to enhance satiety and to prevent the 'sticking' offood. Emphasized focus on protein intake over other food groups. Reviewed importance of fluids, including no drinking 30 minutes before or after solid foods, and indicated that bowel changes are likely with reintroduction of more types of foods. Reviewed effects of high-fiber food on digestion. Nutrition diagnosis: Impaired nutrient utilization related to bariatric surgery as evidenced by need for specialized diet/vitamin guidelines. Plan: 1. Advance to Stage 4. -->See diet handout provided for details or pages 12-13 in your program book. -->Plan your plate: 50% protein, 30 % fruits and veggies, 20% complex carbs 2. Continue complete multivitamin with iron one tab twice a day (2 tab daily) NO GUMMIES Continue Vit D3 1,000 IU daily (or 5,000 IU if pre-surgery deficiency.) Continue B Complex OR Thiamine 50-100 mg daily. 3. Start calcium citrate with vitamin D3: 1260 mg to 1590 mg a day --> 2 tab TWICE a day for REGULAR size tablets (4 tab daily) -->2 tab THREE times a day for PETITE size tablets (6 tab daily) 4. Continue B12 injections every 3 months. 5. Continue to increase exercise/activity as tolerated. 6. Follow-up in 3 months. March 2024 7. Patient advised to use [employer] portal to send any follow up questions or call clinic. Time spent : 15 minutes. Dulce Pace RDN documented in this encounter Nursing Notes * Anai Cooley, MED ASSIST - 12/16/2023 10:33 AM EST Images from the original note were not included. Pt verified identity by last name and date. Chief Complaint Patient presents with Weight Management Dietary Counseling S/p RYGB 10/03/23 Waist circumference 60.5 inches Neck circumference 17 inches documented in this encounter Plan of Treatment Upcoming Encounters Date Type Department Care Team (Late st Contact Info) Description 12/17/2023 6:15 AM EST Anticoagulation Pharmacy Call Center [address] [place] [address] [facility], [facility] 58 60 [facility] [place] [address] 01/06/2024 1:40 PM EST Office Visit Family Medicine [address] [place] [phone] Christopher Gorman [address] [place] [address] 01/21/2024 1:30 PM EDT Office Visit Cardiology, [facility] [address] [place] [address] Pepe Dupont MD [address] [facility] [place] [address] 02/24/2024 2:30 PM EDT Telemedicine General Surgery, [place] [address] [place] [address] Yomi Barros PA-C [address] [place] [address] 03/05/2024 11:20 AM EDT Telemedicine Nutrition & Weight Management, [facility] [address] [place] [address] Misa Katz PA-C [address] [facility] [place] [address] 04/23/2024 11:00 AM EDT Office Visit Sleep Disorders C[facility] [address] [facility] [place] [phone] Isabella Maynard DO [address] [place] [address] 06/04/2024 3:50 PM EDT Telemedicine Nutrition & Weight Management, [facility] [address] [place] [address] Dulce Pace RDN [address] [place] [address] 09/02/2024 2:30 PM EDT Nutrition Services Nutrition & Weight Management, [facility] [address] [place] [address] Dulce Pace RDN [address] [place] [address] 09/02/2024 3:40 PM EDT Office Visit Nutrition & Weight Management, [facility] [place] [address] Misa Katz PA-C [address] [place] [address] Health Maintenance Due Date Last Done Comments [...] this encounter Medical Devices Implanted Type Area Manufacturing Project Manager Device Identifier Shelf Expiration Date Model / Serial / Lot Graft Valved Valsalva 27mm - [id number] Implanted:Qty : 1 on 07/15/2014 [place] [facility] [place]A: Aorta [employer] 12/15/2017 [id number]-5 15 / [id number] / Sut Steel 6 M654g - [id number] Implanted:Qty : 1 on 05/29/2015 by Smith Shelton MD [place] [facility] [place]A: Chest JNJ : [employer] 06/02/2019 M654G / / [id number] Prolene Mesh - [id number] Implanted:Qty : 1 on 12/30/2019 by Mihir Calvo MD [place] [facility] [place]/A: Abdomen [employer] [facility] [id number] 03/02/2023 [id number] / / [id number] documented as of this encounter Visit Diagnoses Diagnosis S/P gastric bypass- Primary Bariatric surgery status Intestinal postoperative nonabsorption Other and unspecified postsurgical nonabsorption Vitamin D deficiency Unspecified vitamin D deficiency Chronic heart failure with preserved ejection fraction (HCC) Abnormal weight gain Class 3 severe obesity due to excess calories without serious comorbidity with body mass index (BMI) of 45.0 to 49.9 in adult (HCC) documented in this encounter Advance Directives [...] the patient have Health Care Power of Certified Nurses Aide? Yes, not currently available Code Status History [...] the patient have Health Care Power of Certified Nurses Aide? No Full Code 12/29/2019 7:58 PM 12/30/2019 6:18 PM This order reflects the patients wishes and were consensually agreed upon. Question Answer Comments Discussion of Advance Directives occurred with: Not Discussed Does the patient have a Living Will? No Does the patient have Health Care Power of Certified Nurses Aide? No Care Teams Information And Referral Director Relationship Specialty Start Date End Date Brian Guido MD [address] [place] [address] [place] [phone] PCP - General Family Medicine 12/27/16 documented as of this encounter
--- OUTSIDE RECORDS SUMMARY | 2024-05-26 16:52 | External Medical Summary ---
Author Name Unknown Address Unknown Organization [id number] [address] - [address] [place] [address] Laboratory Report Ordering Provider Test Date Status LITO SHARMA 12/16/2023 09:58:28 Final Please draw PT/INR every 1-4 weeks or as requested by the [facility]

Warfarin Therapy
INR: 2.0-3.0 conventional anticoagulation
INR: 2.5-3.5 high intensity anticoagulation Observation Date Value Abnormality Reference (Units ) Status PT 12/16/2023 09:58:28 24.2 Above high normal 11 .6-15.2 (seconds) Final INR 12/16/2023 09:58:28 2.1 Above high normal 0. 8-1.2 Final Performing Location [facility] 0 - [address] [place] [address]
--- OUTSIDE RECORDS SUMMARY | 2024-05-26 16:52 | External Medical Summary ---
Author Name Unknown Address Unknown Organization [facility] [address] - [address] [place] [address] Laboratory Report Ordering Provider Test Date Status IRENE ROBERTO 12/16/2023 11:22:33 Final Observation Date Value Abnormality Reference (Units ) Status SYNC LEUKOCYTES IN BLOOD BY AUTOMATED COUNT 12/16/2023 11:22:33 4.96 4.00-10.80 (K/uL) Final Segs 12/16/2023 11:22:33 59.9 40.0-75.0 (%) Final Lymphs % 12/16/2023 11:22:33 29.6 18.0-42.0 (%) Final Monos 12/16/2023 11:22:33 7.9 1.0-11.0 (%) Final Eosinophils 12/16/2023 11:22:33 2.2 0.0-6.0 (%) Final Basos 12/16/2023 11:22:33 0.4 0.0-2.0 (%) Final Absolute Segs 12/16/2023 11:22:33 2.97 1.80-7.70 (K/uL) Final Lymphs, absolute 12/16/2023 11:22:33 1.47 1.00-4.80 (K/ul) Final Monos, Abs 12/16/2023 11:22:33 0.39 0.00-1.10 (K/uL) Final Eos, Abs 12/16/2023 11:22:33 0.11 0.00-0.70 (K/uL) Final Basos, Abs 12/16/2023 11:22:33 0.02 0.00-0.20 (K/uL) Final Performing Location [facility] [address] - [address] [place] [address]
--- OUTSIDE RECORDS SUMMARY | 2024-05-26 16:52 | External Medical Summary ---
Author Name Unknown Address Unknown Organization K01:[facility] [place] - [address] [place] [address] Laboratory Report Ordering Provider Test Date Status IRENE ROBERTO 12/16/2023 11:22:33 Final Observation Date Value Abnormality Reference (Units ) Status Iron 12/16/2023 11:22:33 79 45-176 (ug /dL) Final Iron-binding capacity 12/16/2023 11:22:33 295 250-425 (ug/dL) Final Transferrin Sat % 12/16/2023 11:22:33 27 15 -55 (%) Final Performing Location [facility] - [address] [place] [address]
--- OUTSIDE RECORDS SUMMARY | 2024-05-26 16:52 | External Medical Summary ---
Author Name Unknown Address Unknown Organization K0G:[facility] [place] [address] - [address] [place] [address] Laboratory Report Ordering Provider Test Date Status IRENE ROBERTO 12/16/2023 11:22:33 Final Observation Date Value Abnormality Reference (Units ) Status WBC, Total 12/16/2023 11:22:33 4.96 4.00-10.8 0 (K/uL) Final RBC 12/16/2023 11:22:33 3.96 4.50-5.25 (M/uL) Final Hemoglobin 12/16/2023 11:22:33 12.0 Below low normal 14 .0-16.8 (g/dL) Final HCT 12/16/2023 11:22:33 36.9 Below low normal 40. 0-48.4 (%) Final MCV 12/16/2023 11:22:33 93.2 82.0-99.5 (fL) Final MCH 12/16/2023 11:22:33 30.3 27.0-34.0 (pg) Final MCHC 12/16/2023 11:22:33 32.5 32.0-36.0 (g/dL) Final RDW 12/16/2023 11:22:33 14.0 11.5-15.5 (%) Final Platelets 12/16/2023 11:22:33 192 140-400 (K /uL) Final MPV 12/16/2023 11:22:33 11.2 6.6-11.1 ( fL) Final Performing Location [facility] 0 - [address] [place] [address]
--- OUTSIDE RECORDS SUMMARY | 2024-05-26 16:52 | External Medical Summary | Summary of Care ---
Author Name Unknown Organization [facility] Address [address] [place] [address] Phone [phone] Care Team Providers Care Client Services Manager Name Role Phone Brian Guido MD Primary Care Provider + [phone] Reason for Visit * Reason Comments Outpatient Testing Encounter Details Date Type Department Care Team (Late st Contact Info) Description 12/16/2023 10:10 AM EST Laboratory Laboratory, [facility] [address] [place] [phone] [facility] [address] [place] [address] Status post mechanical aortic valve replacement Allergies No known active allergiesdocumented as of [...] post mechanical aortic valve replacement,Anticoag ulation management 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 Or take as instructed by the [facility] 270 Tablet 3 06/23/2023 Active Atorvastatin Calcium 10 MG Oral Tablet (Lipitor)Indications :LBBB (left bundle branch block) take one pill by mouth at bedtime 90 Tablet 1 07/08/2023 Active Clopidogrel Bisulfate 75 MG Oral Tablet (pLAVix)Indications: H/O aortic dissection Take 1 Tablet by mouth in the morning. 90 Tablet 1 07/08/2023 Active Additional Information Patient not taking.Reported on 10/23/2023 Acetaminophen 500 MG Oral Tablet (Tylenol)Indications :Morbid [...] after surgery. 90 Capsule 0 07/30/2023 Active Enoxaparin Sodium 150 MG/ML Injection Solution Prefilled Syringe (Lovenox) Inject 150 mg (one syringe) under the skin in the morning and 150 mg (one syringe) before bedtime. 6 mL 0 10/17/2023 Active Spironolactone 25 MG Oral Tablet (Aldactone) Take 1 Tablet by mouth in the morning. 1 Tablet 0 10/18/2023 Active Additional Information Patient not taking.Reported on 10/23/2023 Torsemide 10 MG Oral Tablet (Demadex) Take 1 Tablet by mouth in the morning. 1 Tablet 0 10/18/2023 Active Additional Information Patient not taking.Reported on 10/23/2023 Cyclobenzaprine HCl 10 MG Oral Tablet (Flexeril) Take 1 Tablet by mouth every 8 hours as needed for Muscle spasms. 15 Tablet 0 10/17/2023 Active Losartan Potassium 50 MG Oral Tablet (Cozaar) Take 1 Tablet by mouth in the morning and 1 Tablet before bedtime. 180 Tablet 3 11/17/2023 Active Metoprolol Tartrate 25 MG Oral Tablet (Lopressor) Take 3 Tablets by mouth in the morning and 3 Tablets before bedtime. 180 Tablet 3 11/17/2023 Active documented as of this encounter (statuses [...] ejection fract ion) 10/14/2023 Pre-operative examination 07/30/2023 MAXWELL RESEARCH OTHER*[id number] 01/20/2023 Morbid obesity 12/20/2021 Diffuse axonal brain [...] Team (Late st Contact Info) Description 12/16/2023 10:40 AM EST Office Visit Nutrition & Weight Management, [facility] [address] [place] [address] Samantha Cota PA-C [address] [place] [address] Arrived 12/16/2023 11:20 AM EST Nutrition Services Nutrition & Weight Management, [facility] [address] [place] [address] Dulce Pace RDN [address] [place] [address] Bariatric Surgery / Nutrition Post-operative Follow-Up 2023 6:15 AM EST Anticoagulation Pharmacy Call Center [place] [address] [facility] [place] [address] [facility], [facility] 58 60 [facility] [place] [address] 01/06/2024 1:40 PM EST Office Visit Family Medicine [address] [place] [phone] Christopher Gorman [address] [place] [address] 01/21/2024 1:30 PM EDT Office Visit Cardiology, [facility] [address] [place] [address] Pepe Dupont MD [address] [place] [address] 02/24/2024 2:30 PM EDT Telemedicine General Surgery, [place] [address] [place] [address] Yomi Barros PA-C [address] [place] [address] 03/05/2024 11:20 AM EDT Telemedicine Nutrition & Weight Management, [facility] [address] [place] [address] Misa Katz PA-C [address] [place] [address] 04/23/2024 11:00 AM EDT Office Visit Sleep Disorders [facility] [address] [place] [phone] Isabella Maynard DO [address] [place] [address] 06/04/2024 3:50 PM EDT Telemedicine Nutrition & Weight Management, [facility] [address] [place] [address] Dulce Pace RDN [address] [place] [address] 09/02/2024 2:30 PM EDT Nutrition Services Nutrition & Weight Management, [facility] [address] [place] [address] Dulce Pace RDN [address] [place] [address] 09/02/2024 3:40 PM EDT Office Visit Nutrition & Weight Management, [facility] [address] [place] [address] Misa Katz PA-C [address] [place] [address] Pending Results Name Type Priority Associated Diagnoses Date /Time PT INR Lab Routine Status post mechanical aortic valve replacement 12/16/2023 9:58 AM EST Health Maintenance Due Date Last [...] this encounter Medical Devices Implanted Type Area Retail Commission Sales Associate Device Identifier Shelf Expiration Date Model / Serial / Lot Graft Valved Valsalva 27mm - [id number] [place]ed:[place] 1 [place] [facility] [place]A: Aorta [employer] 12/15/2017 27VAVGJ-5 15 / [id number] / Sut Steel 6 M654g - [id number] Implanted:Qty : 1 on 05/29/2015 by Smith Shelton [place] [facility] [place]: Chest JNJ : [employer] 06/02/2019 M654G / / [id number] Prolene Mesh - [id number] Implanted:Qty : 1 on 12/30/2019 [place] Mihir Calvo [place] [facility] [place]: Abdomen [employer] [facility] [id number] 03/02/2023 [id number] / / [id number] documented as of this encounter Visit Diagnoses Diagnosis Status post mechanical aortic valve replacement documented in this encounter Advance Directives Latest [...] the patient have Health Care Power of Swimming Coach? Yes, not currently available Code Status History [...] the patient have Health Care Power of Swimming Coach? No Full Code 12/29/2019 7:58 PM 12/30/2019 6:18 PM This order reflects the patients wishes and were consensually agreed upon. Question Answer Comments Discussion of Advance Directives occurred with: Not Discussed Does the patient have a Living Will? No Does the patient have Health Care Power of Swimming Coach? No Care Teams Client Services Manager Relationship Specialty Start Date End Date Brian Guido MD [address] [place] [address] [place] [address] PCP - General Family Medicine 12/27/16 documented as of this encounter
--- OUTSIDE RECORDS SUMMARY | 2024-05-26 16:52 | External Medical Summary | Summary of Care ---
Author Name Unknown Organization [facility] Address [address] [place] [address] Phone [phone] Care Team Providers Care Poultry Veterinarian Name Role Phone Brian Guido MD Primary Care Provider + [phone] Reason for Visit * Reason Comments Weight Management Dietary Counseling S/p RYGB 10/03/23 Encounter Details Date Type Department Care Team (Latest Contact Info) Description 12/16/2023 10:40 AM EST Office Visit Nutrition & Weight Management, [facility] [address] [place] [address] Samantha Cota PA-C [address] [place] [address] S/P gastric bypass*; Intestinal postoperative nonabsorption Allergies No known active allergiesdocumented as of [...] post mechanical aortic valve replacement,Anticoa gulation management encounter,assisted current use of 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 Or take as instructed by the [facility] 270 Tablet 3 06/23/2023 Active [...] 4 Discontinue d(Medicatio n List Clean Up) Hospital, Clinic, or Other Facility Administered Medication Ordered Dose Route Frequency Start Date End Date Status vitamin b-12 (Cyanocobalamin) inj 1,000 mcgIndications:S/P gastric bypass 1000 mcg IM [id number] 12/16/2023 11/16/2024 Active documented as of this [...] ejection fract ion) 10/14/2023 Pre-operative examination 07/30/2023 [facility] OTHER*[id number] 01/20/2023 Morbid obesity 12/20/2021 Diffuse axonal brain [...] Time Taken Comments Blood Pressure 154/66 12/16/2023 10:25 AM EST Pulse 66 12/16/2023 10:25 AM EST Temperature 36.7 C (98.1 F) 12/16/2023 1 0:25 AM EST Respiratory Rate - - Oxygen Saturation - - Inhaled Oxygen Concentration - - Weight 159.3 kg (351 lb 3.2 oz) 024 10:25 AM EST Height - - Body Mass [...] as of this encounter Progress Notes * Samantha Cota PA-C - 12/16/2023 10:27 AM EST [facility] Post Gastric Bypass 2 months post op Nursing Notes: Anai Cooley, MED ASSIST 12/16/23 1029 Sign at exiting of workspace Pt verified identity by last name and date. Chief Complaint Patient presents with Weight Management Dietary Counseling S/p RYGB 10/03/23 Waist circumference 60.5 inches Neck circumference 17 inches Waist Circumference 60.5" Referring physician: Brian Guido MD Deep Fong is a 37 year old male who presents in follow up to the comprehensive weight management clinic. HPI The patient is s/p Gastric Bypass by Dr. Washington on October 14, 2023 Gastric restrictive procedure with gastric bypass and Heidy en Y gastroenterosotomy, 150 cm or less 10/14/[address] Washington Modifier 22: Significant lysis of adhesions and a small bowel injury requiring resection requiring extra time, mental and physical effort. Upper GI endoscopy including esophagus, stomach and or duodenum and jejunum, diagnostic, without collection of specimen Biopsy of liver, wedge Initial clinic visit 10/18/22. Weight at that time was 380 lbs - Weight at the time of the surgery 379 lbs - Today's weight: 351 lbs - Total weight loss of -28 lbs since surgery, and -29 lbs since initial weight in clinic - Patient's last follow up with GI/Nutrition was on 11/11/2023 weight 349.6 (self reported) - The patient's weight has +1 lbs since the last visit Wt Readings from Last 5 Encounters: 12/16/23 (!) 159.3 kg (351 lb 3.2 oz) 10/23/23 (!) 169.3 kg (373 lb 4.8 oz) 10/23/23 (!) 169.5 kg (373 lb 11.2 oz) 10/23/23 (!) 170.1 kg (375 lb) 10/15/23 (!) 184.6 kg (407 lb) 12/16/23 -2 months post op -missed 5 days of PPI and had nausea/heartburn 01/09/24 -1 month post op -overall feeling well 10/23/23 -7-10 days post op (patient was not checked in and appointment time had passed- visit was shortened-- diet and vitamins per RD) -having some nausea and vomiting -had some upper back/abdominal pain today for a brief moment but that has completely resolved -really increased protein and since then has had nausea and vomiting Current recommended meal plan: Stage 3: Describes typical diet history/[address] note same day Patient is getting 60 grams of protein a day. Patient is getting 64 ounces of fluid a day. Getting about 80oz fluid Activity Level: Light activity TYPE/DURATION: walking Psychosocial Adjustment Issues: No, no Issues with body image, stress management, relationships, and addiction transfer Alcohol Use: None Tobacco Use: Never Substance Abuse: None Past Medical History Hypertension: Yes, on medications Dyslipidemia: Yes, on treatment Sleep Apnea: Yes, on CPAP Diabetes: No GERD: Yes, on medication Patient Active Problem List Diagnosis Code Thoracic aortic aneurysm I71.20 Status post mechanical aortic valve replacement Z95.2 Anxiety disorder F41.9 Dyslipidemia, goal LDL below 100 E78.5 DDD (degenerative disc disease), lumbar M51.36 Generalized anxiety disorder F41.1 Primary hypertension I10 LBBB (left bundle branch block) I44.7 Diffuse axonal brain injury (HCC) S06.2XAA Morbid obesity (HCC) E66.01 [facility] OTHER*[id number] Pre-operative examination Z01.818 S/P gastric bypass Z98.84 GUILLERMO (obstructive sleep apnea) G47.33 HFrEF (heart failure with reduced ejection fraction) (HCC) I50.20 Chronic heart failure with preserved ejection fraction (HCC) I50.32 Congenital bicuspid aortic valve Q23.1 Gastroesophageal reflux disease K21.9 TIMMY (generalized anxiety disorder) F41.1 GUILLERMO on CPAP G47.33 Hyperlipidemia E78.5 Left bundle branch block I44.7 H/O mechanical aortic valve replacement Z95.2 History of aortic dissection Z86.79 Hypertension I10 Social Connections: Not on file Review of patient's allergies indicates: No Known Allergies Taking supplements as ordered for each of the following: Multivitamin- Women's One A Day BID Calcium- started already Vitamin D- 5000 IU daily B12- start today B Complex daily Current Outpatient Medications Medication Sig Dispense Refill DULoxetine HCl 30 MG Oral Capsule Delayed Release Particles (Cymbalta) TAKE 1 CAPSULE BY MOUTH ONCEDAILY DO NOT CUT, CRUSH, OR CHEW. TAKE WITH 60 MG DOSE FOR A TOTAL DAILY DOSE OF 90 MG 90 Capsule 2 DULoxetine HCl 60 MG Oral Capsule Delayed Release Particles (Cymbalta) One daily with 30 mg for dose of 90 mg 90 Capsule 2 Warfarin Sodium 5 MG Oral Tablet (Coumadin) Take 2-3 Tablets by mouth every evening. Or take as instructed by the [facility] 270 Tablet 3 Atorvastatin Calcium [...] for nausea after surgery. 30 Tablet 1 Omeprazole 20 MG Oral Capsule Delayed Release (PriLOSEC) Take 1 cap by mouth daily for 90 days after surgery. 90 Capsule 0 Torsemide 10 MG Oral Tablet (Demadex) Take 1 Tablet by mouth in the morning. 1 Tablet 0 Losartan Potassium 50 MG Oral Tablet (Cozaar) Take 1 Tablet by mouth in the morning and 1 Tablet before bedtime. 180 Tablet 3 Metoprolol Tartrate 25 MG Oral Tablet (Lopressor) Take 3 Tablets by mouth in the morning and 3 Tablets before bedtime. 180 Tablet 3 Enoxaparin Sodium 150 MG/ML Injection Solution Prefilled Syringe (Lovenox) Inject 150 mg (one syringe) under the skin in the morning and 150 mg (one syringe) before bedtime. (Patient not taking: Reported on 12/16/2023) 6 mL 0 Spironolactone 25 MG Oral Tablet (Aldactone) Take 1 Tablet by mouth in the morning. (Patient not taking: Reported on 10/23/2023) 1 Tablet 0 Cyclobenzaprine HCl 10 MG Oral Tablet (Flexeril) Take 1 Tablet by mouth every 8 hours as needed forMuscle spasms. (Patient not taking: Reported on 12/16/2023) 15 Tablet 0 No current facility-administered medications for this visit. Review of Systems: Review of Systems Constitutional: Negative for chills, fatigue and fever. Respiratory: Negative for shortness of breath. Cardiovascular: Negative for chest pain, palpitations and leg swelling. Gastrointestinal: Negative for abdominal pain, blood in stool, constipation, diarrhea, nausea and vomiting. Musculoskeletal: Positive for back pain. All other systems reviewed and are negative. Physical Exam: BP 154/66 | Pulse 66 | Temp 36.7 C (98.1 F) (Temporal Artery) | Wt (!) 159.3 kg (351 lb 3.2 oz)| BMI 47.63 kg/m | BSA 2.84 m General: Patient awake alert and oriented. Patient is well appearing and in no acute distress. Skin: No rashes. HEENT: Head is atraumatic, normocephalic. EOMs intact Abdomen: Obese Neuro: No focal deficits Psych: Appropriate mood and affect. Assessment/Plan: S/P Gastric Bypass Surgery: Diet Will advance to stage 4 bariatric surgery meal plan and begin calcium citrate with vitamin D today. Vitamins The patient will continue MVI, Calcium with Vitamin D, B Complex Vitamin, and Vitamin B12 Injections in our clinic every 3 months Liver Biopsy: Yes, NAFLD Fibrosis stage: 0 Hepatology Referral: Less than three, no referral Bariatric Episode Resolved (BPD/RYGB/VSG): yes PPI: Patient is taking post op prophylactic PPI. Patient advised to continue this through 90 day post op period. GOALS - aim for 60-80 grams of protein a day - aim for 64oz of fluids a day - continue to increase physical activity - continue the following vitamins for life: - Multivitamin - Calcium Citrate+Vitamin D3 9501-2116 mg calcium daily - B12 1000 mcg injections at least every 3mo -Vitamin D 3,000 IU total per day - Do NOT skip meals--eat small frequent meals/snacks throughout the day - Eat slowly--take 20-30 minutes for each meal - Chew food thoroughly to applesauce consistency Deep was seen today for weight management and dietary counseling. Diagnoses and all orders for this visit: S/P gastric bypass Intestinal postoperative nonabsorption History of aortic dissection Chronic heart failure with preserved ejection fraction (HCC) Reviewed inpatient notes: "Discussed with patient's service director Dr. Bishop Garcia: Continue metoprolol tartrate 75 mg BID (switched from metoprolol succinate 100 mg qAM and 50mg qPM) Switch losartan 100 mg daily to losartan 50 mg twice daily Continue spironolactone 25 mg daily Continue torsemide 100 mg daily Stop terazosin 2 mg daily Patient advised to check and document blood pressures at home" He has not been taking the spironolactone or torsemide-- discussed these recommendations per Dr. Garcia and to restart. He will also reach out to cardiology to confirm. Recommend restart spironolactone. Using torsemide PRN BP is high today - has been 117-128 systolic on home cuff Dyslipidemia, goal LDL below 100 Continue Lipitor 10 mg nightly GUILLERMO (obstructive sleep apnea) Continue CPAP GERD Continue PPI for at least 90 days post op TIMMY Continue duloxetine 90 mg daily Primary hypertension Medications as above per cardiology Status post mechanical aortic valve replacement Following with coagulation clinic Diffuse axonal brain injury, with unknown loss of consciousness status, sequela -history TIA, amaurosis fugax History of nephrolithiasis -1 episode, 2018, passed with Flomax The patient agreed to try the plan as discussed and return in three months. They were encouraged tocall or send a patient portal message in the meantime with any questions or concerns prior to theirnext visit. I spent a total of 40 minutes on the date of service in preparation, delivery, and documentation ofthe care provided to Deep Fong excluding any time spent in the performance of separately billed services. This included, but was not limited to, providing counseling about the benefits of weight loss, about their nutritional status, detailed explanations about calorie count, types of nutrients to choose,and composition of the meals. Motivational interview provided in order to prepare the patient to achieve future goals. Samantha YUEN, MPH [facility] Nutrition and Weight Management [facility] ([facility]) documented in this encounter Nursing Notes * Anai Cooley MED ASSIST - 12/16/2023 10:27 AM EST Pt verified identity by last name and date. Chief Complaint Patient presents with Weight Management Dietary Counseling S/p RYGB 10/03/23 Waist circumference 60.5 inches Neck circumference 17 inches documented in this encounter Plan of Treatment Upcoming Encounters Date Type Department Care Team (Late st Contact Info) Description 12/16/2023 11:20 AM EST Nutrition Services Nutrition & Weight Management, [facility] [address] [address] Dulce Pace RDN [address] [address] Arrived 12/17/2023 6:15 AM EST Anticoagulation Pharmacy Call Center [address] [facility] [address] [place] [address] [facility], [facility] 58 60 [facility] [place] [place] [address] 01/06/2024 1:40 PM EST Office Visit Family Medicine [address] [phone] Christopher Gorman [address] [place] [address] 01/21/2024 1:30 PM EDT Office Visit Cardiology, [facility] [address] [address] Pepe Dupont MD [address] [address] 02/24/2024 2:30 PM EDT Telemedicine General Surgery, [place] [address] [place] [address] Yomi Barros PA-C [address] [place] [address] 03/05/2024 11:20 AM EDT Telemedicine Nutrition & Weight Management, [facility] [address] [address] Misa Katz PA-C [address] [address] 04/23/2024 11:00 AM EDT Office Visit Sleep Disorders Ctr [facility] [address] [facility] [address] [place] [phone] Isabella Maynard DO [address] [place] [address] 06/04/2024 3:50 PM EDT Telemedicine Nutrition & Weight Management, [facility] [address] [place] [address] Dulce Pace RDN [address] [place] [place] [address] 09/02/2024 2:30 PM EDT Nutrition Services Nutrition & Weight Management, [facility] [address] [place] [address] Dulce Pace RDN [address] [place] [place] [address] 09/02/2024 3:40 PM EDT Office Visit Nutrition & Weight Management, [facility] [address] [place] [address] Misa Katz PA-C [address] [place] [place] [address] Scheduled Orders Name Type Priority Associated Diagnoses Orde r Schedule CBC WITH WBC DIFFERENTIAL Lab Routine S/P gastric bypass Expected: 12/16/2023 (Approximate), Expires: 12/16/2024 IRON SCREEN, INCLUDING TIBC Lab Routine S/P gastric bypass Expected: 12/16/2023 (Approximate), Expires: 12/16/2024 FERRITIN Lab Routine S/P gastric bypass Expected: 12/16/2023, Expires: 12/16/2024 Health Maintenance Due Date Last Done Comments [...] this encounter Medical Devices Implanted Type Area Sound Person Device Identifier Shelf Expiration Date Model / Serial / Lot Graft Valved Valsalva 27mm - [id number] Implanted:Qty : 1 on 07/15/2014 at OR [facility] N/A: Aorta [employer] 12/15/2017 [id number]-[id number] 15 / [id number] / Sut Steel 6 M654g - [id number] Implanted:Qty : 1 on 05/29/2015 by Smith Shelton MD at OR [facility] N/A: Chest JNJ : [employer] 06/02/2019 M654G / / [id number] Prolene Mesh - [id number] Implanted:Qty : 1 on 12/30/2019 by Mihir Calvo MD at OR [facility] N/A: Abdomen Traka [id number] 03/02/2023 [id number] / / [id number] documented as of this encounter Visit Diagnoses Diagnosis S/P gastric bypass- Primary Bariatric surgery status Intestinal postoperative nonabsorption Other and unspecified postsurgical nonabsorption documented in this encounter Advance Directives Latest [...] the patient have Health Care Power of Government Affairs Director? Yes, not currently available Code Status History [...] the patient have Health Care Power of Government Affairs Director? No Full Code 12/29/2019 7:58 PM 12/30/2019 6:18 PM This order reflects the patients wishes and were consensually agreed upon. Question Answer Comments Discussion of Advance Directives occurred with: Not Discussed Does the patient have a Living Will? No Does the patient have Health Care Power of Government Affairs Director? No Care Teams Poultry Veterinarian Relationship Specialty Start Date End Date Brian Guido MD [address] [place] [address] [address] [place] [address] PCP - General Family Medicine 12/27/16 documented as of this encounter
--- OUTSIDE RECORDS SUMMARY | 2024-05-26 16:52 | External Medical Summary ---
Author Name Unknown Address Unknown Organization K01:[facility] [address] [place] [address] Laboratory Report Ordering Provider Test Date Status IRENE ROBERTO 12/16/2023 11:22:33 Final Observation Date Value Abnormality Reference (Units ) Status Ferritin 12/16/2023 11:22:33 110 30-400 (ng /mL) Final Performing Location LABORATORY [facility] - [address] [facility] [place] [place] [address]
--- OUTSIDE RECORDS SUMMARY | 2024-05-26 16:52 | External Medical Summary | Summary of Care ---
Author Name Unknown Organization [facility] Address [address] [place] [address] Phone [phone] Care Team Providers Care Academic Affairs Director Name Role Phone Brian Guido MD Primary Care Provider + [phone] Reason for Visit * Reason Comments Weight Management Dietary Counseling S/p RYGB 10/03/23 Encounter Details Date Type Department Care Team (Latest Contact Info) Description 12/16/2023 10:40 AM EST Office Visit Nutrition & Weight Management, [facility] [address] [place] [address] Samantha Cota PA-C [address] [place] [address] S/P gastric bypass*; Intestinal postoperative nonabsorption Allergies [...] post mechanical aortic valve replacement,Anticoa gulation management encounter,FDC current use of 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 Bishop Garcia: Continue metoprolol tartrate 75 [...] to achieve future goals. Samantha YUEN, MPH [facility] Nutrition and Weight Management [facility] ([facility]) documented in this encounter Nursing Notes * Anai Cooley MED ASSIST - 12/16/2023 10:27 AM EST Pt verified identity by last name and date. Chief Complaint Patient presents with Weight Management Dietary Counseling S/p RYGB 10/03/23 Waist circumference 60.5 inches Neck circumference 17 inches documented in this encounter Plan of Treatment Upcoming Encounters Date Type Department Care Team (Latest Contact Info) Description 12/16/2023 11:20 AM EST Nutrition Services Nutrition & Weight Management, [facility] [address] [address] Dulce Pace RDN [address] [address] S/P gastric bypass*; Intestinal postoperative nonabsorption; Vitamin D deficiency; Chronic heart failure with preserved ejection fraction (HCC); Abnormal weight gain; Class 3 severe obesity due to excess calories without serious comorbidity with body mass index (BMI) of 45.0 to 49.9 in adult ([facility]) 12/17/2023 6:15 AM EST Anticoagulation Pharmacy Call Center [address] [facility] [address] [place] [address] [facility], [facility] 58 60 [facility] [place] [address] 01/06/2024 1:40 PM EST Office Visit Family Medicine [address] [phone] [address] [place] [address] 01/21/2024 1:30 PM EDT Office Visit Cardiology, [facility] [address] [address] Pepe Dupont MD [address] [address] 02/24/2024 2:30 PM EDT Telemedicine General Surgery, [place] [address] [place], [place] [phone] Yomi Barros PA-C [address] [place] [address] 03/05/2024 11:20 AM EDT Telemedicine Nutrition & Weight Management, [facility] [address] [address] Misa Katz PA-C [address] [place] [place] [address] 04/23/2024 11:00 AM EDT Office Visit Sleep Disorders Ctr [facility] [address] [facility] [address] [place] [phone] Isabella Maynard DO [address] [place] [address] 06/04/2024 3:50 PM EDT Telemedicine Nutrition & Weight Management, [facility] [address] [place] [address] Dulce Pace RDN [address] [place] [address] 09/02/2024 2:30 PM EDT Nutrition Services Nutrition & Weight Management, [facility] [address] [facility] [address] [place] [address] Dulce Pace RDN [address] [place] [address] 09/02/2024 3:40 PM EDT Office Visit Nutrition & Weight Management, [facility] [address] [facility] [address] [place] [address] Misa Ktaz PA-C [address] [place] [place] [address] Scheduled Orders Name Type Priority Associated Diagnoses [...] this encounter Medical Devices Implanted Type Area Livestock Haulier Device Identifier Shelf Expiration Date Model / Serial / Lot Graft Valved Valsalva 27mm - [id number] Implanted:Qty : 1 on 07/15/2014 at OR [facility] N/A: Aorta [employer] 12/15/2017 27VAVGJ-5 15 / [id number] / Sut Steel 6 M654g - [id number] Implanted:Qty : 1 on 05/29/2015 by Smith Shelton MD at OR [facility] N/A: Chest JNJ : [employer] 06/02/2019 M654G / / [id number] Prolene Mesh - [id number] Implanted:Qty : 1 on 12/30/2019 by Mihir Calvo MD at OR [facility] N/A: Abdomen [employer] [id number] 03/02/2023 [id number] / / [id number] documented as of this encounter Visit Diagnoses Diagnosis S/P gastric bypass- Primary Bariatric surgery status Intestinal postoperative nonabsorption Other and unspecified postsurgical nonabsorption S/P gastric bypass- Primary Bariatric surgery status Intestinal postoperative nonabsorption Other and unspecified postsurgical nonabsorption Vitamin D deficiency Unspecified vitamin D deficiency Chronic heart failure with preserved ejection fraction (HCC) Abnormal weight gain Class 3 severe obesity due to excess calories without serious comorbidity with body mass index (BMI) of 45.0 to 49.9 in adult (HCC) documented in this encounter Administered Medications Active Administered Medications - up to 3 most recent administrations Medication Order MAR Action Action Date Dose Rate Site vitamin b-12 (Cyanocobalamin) inj 1,000 mcg 1,000 mcg, Intramuscular, [id number], First dose on Fri12/16/23 at 1130, Last dose on Fri08/24/24 at 1130, For 4 doses Given 12/16/2023 11:08 AM EST 1,000 mcg Deltoid Left Upper documented in this encounter Advance Directives Latest [...] the patient have Health Care Power of Curtain Stretcher Assembler? Yes, not currently available Code Status History [...] the patient have Health Care Power of Curtain Stretcher Assembler? No Full Code 12/29/2019 7:58 PM 12/30/2019 6:18 PM This order reflects the patients wishes and were consensually agreed upon. Question Answer Comments Discussion of Advance Directives occurred with: Not Discussed Does the patient have a Living Will? No Does the patient have Health Care Power of Curtain Stretcher Assembler? No Care Teams Academic Affairs Director Relationship Specialty Start Date End Date Brian Guido MD [address] [place] [address] [place] [place] [address] PCP - General Family Medicine 12/27/16 documented as of this encounter
[2024-05-26] MEDS: HYDROmorphone INJ 0.5 MG/0.5 ML SYR IV PRN (19:58)
--- NOTE | 2024-05-26 20:16 | Electrocardiogram Report ---
Test Reason : Blood Pressure : / mmHG Vent. Rate : 091 BPM Atrial Rate : 091 BPM P-R Int : 148 ms QRS Dur : 146 ms QT Int : 398 ms P-R-T Axes : 057 005 106 degrees QTc Int : 489 ms Normal sinus rhythm Left bundle branch block Abnormal ECG When compared with ECG of 08-SEP-2023 16:59, QRS axis Shifted right Confirmed by Timbo Cross ([id number]) on 05/26/2024 8:16:30 PM Referred By: Confirmed By:Timbo Cross
[2024-05-26] MEDS: METOPROLOL TARTRATE 25 MG TAB PO SCH (22:07)
[2024-05-26] MEDS: CYCLOBENZAPRINE HCL 10 MG TAB PO PRN (22:07)
[2024-05-26] MEDS: LOSARTAN POTASSIUM 50 MG TAB PO SCH (22:08)
[2024-05-26] MEDS: PANTOprazole 40 MG in SYRINGE 0 ML IV SCH (22:08)
[2024-05-26] MEDS: ATORVASTATIN 10 MG TAB PO SCH (22:08)
[2024-05-26] MEDS: VANCOMYCIN HCL 1,250 MG in SODIUM CHLORIDE 0.9% 250 ML IV SCH (22:09)
[2024-05-27 06:28] LABS: Basophils # (auto) 0.01 K/uL (0.00-0.20); Basophils % (auto) 0.2 %; Eosinophils # (auto) 0.04 K/uL (0.00-0.50); Eosinophils % (auto) 0.6 %; Hematocrit (blood only) 28.1 % (42.0-52.0); Hemoglobin 8.4 g/dl (14.0-18.0); Immature Granulocytes # (auto) 0.02 K/uL (0.01-0.20); Immature Granulocytes % (auto) 0.3 %; Lymphocytes # (auto) 1.21 K/uL (1.20-3.40); Lymphocytes % (auto) 18.7 %; Mean Corpuscular Hemoglobin 23.7 pg (25.0-34.0); Mean Corpuscular Hgb Conc 29.9 g/dL (32.0-36.0); Mean Corpuscular Volume 79.2 fL (80.0-100.0); Monocytes # (auto) 0.54 K/uL (0.11-0.59); Monocytes % (auto) 8.4 %; Neutrophils # (auto) 4.64 K/uL (1.40-6.50); Neutrophils % (auto) 71.8 %; Platelet Count 264 K/uL (130-400); RDW Coefficient of Variation 16.2 % (11.5-14.5); RDW Standard Deviation 46.8 fL (36.4-46.3); Red Blood Count 3.55 M/uL (4.70-6.10); White Blood Count 6.46 K/ul (4.8-10.8)
[2024-05-27 06:48] LABS: INR 2.1 (0.9-1.1); Prothrombin Time 21.5 Seconds (9.0-12.0)
[2024-05-27 06:50] LABS: BUN Creatinine Ratio 12.7 (10-20); Calcium 8.7 mg/dl (8.6-10.3); Creatinine Clr Calc Pharmacy 177.9 ml/min; Est GFR (Non-African American) 114.7 ml/min; Potassium 4.7 mmol/L (3.5-5.1)
[2024-05-27] MEDS: DULoxetine HCL 30 MG CAP PO SCH (08:25)
[2024-05-27] MEDS: MULTIVITAMIN TAB PO SCH (08:25)
[2024-05-27] MEDS: CHOLECALCIFEROL 125 MCG (5,000 UNITS) TAB PO SCH (08:25)
[2024-05-27] MEDS: CLOPIDOGREL BISULFATE 75 MG TAB PO SCH (08:25)
[2024-05-27] MEDS: DULoxetine HCL 60 MG CAP PO SCH (08:25)
[2024-05-27] MEDS: oxyCODONE HCL IR 5 MG TAB (IMMEDIATE RELEASE) PO PRN (08:31)
[2024-05-27 09:46] LABS: A calco-baum cmplx NotReported Not Detected (NotDetected); Bact fragilis Not Reported Not Detected (NotDetected); Blood Culture Id Panel See PCR Comment (NotDetected); C auris Not Reported Not Detected (NotDetected); Calbicans Not Reported Not Detected (NotDetected); Candida glabrata Not Reported Not Detected (NotDetected); Candida krusei Not Reported Not Detected (NotDetected); Cneoformans/gatti Not Reported Not Detected (NotDetected); Cparapsilosis Not Reported Not Detected (NotDetected); E cloacae compx Not Reported Not Detected (NotDetected); Efaecalis Not Reported Not Detected (NotDetected); Efaecium Not Reported Not Detected (NotDetected); Enterobacterales Not Reported Not Detected (NotDetected); Escherichia coli Not Reported Not Detected (NotDetected); H influenzae Not Reported Not Detected (NotDetected); K aerogenes Not Reported Not Detected (NotDetected); Koxytoca Not Reported Not Detected (NotDetected); Kpneumoniae grp Not Reported Not Detected (NotDetected); Lmonocyt Not Reported Not Detected (NotDetected); N meningitidis Not Reported Not Detected (NotDetected); P aeruginosa Not Reported Not Detected (NotDetected); Proteus spp Not Reported Not Detected (NotDetected); Salmonella spp Not Reported Not Detected (NotDetected); Staph lugdunensis Not Reported Not Detected (NotDetected); Staph spp. Not Reported Not Detected (NotDetected); Staphaureus Not Reported Not Detected (NotDetected); Staphepi Not Reported Not Detected (NotDetected); Stenmaltophilia Not Reported Not Detected (NotDetected); Strep agal(GrpB) Not Reported Not Detected (NotDetected); Strep pneum Not Reported Not Detected (NotDetected); Strep pyog (GrpA) Not Reported Not Detected (NotDetected); Streptococcus spp DETECTED (NotDetected)
[2024-05-27 10:02] LABS: Strep spp Not Reported DETECTED (NotDetected)
--- NOTE | 2024-05-27 11:22 | Consultation ---
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 He is nonsurgical.. he has acute on chronic symptoms of mostly spasms for this admission. Recommend continued medication management/conservative treatment. Dr. Li has placed a consult for pain management team for medication guidance for better pain control prior to discharge. Again he has a mechanical valve and history of aortic dissection and is on Plavix and Coumadin. Should he need any type of surgical intervention regarding his spine in the future, it is recommended this be managed at a tertiary care center in light of his significant medical and cardiac history. History of Present Illness Attending Physician: Kelsi Prince MD History of Present Illness Is a pleasant 38-year-old gentleman with a complicated cardiac history who has chronic lower back pain that became exacerbated a week and a half ago after he missed a couple steps in his home and fell backward landing on his buttock and right hip. Pain has been unmanageable for the past 3 days therefore he presented to the emergency room was subsequently admitted. Pain is along the midline lumbar spine region on the right buttock down the right anterior and posterior thigh and calf. Twisting or prolonged seated positions reproduce it. He is most comfortable lying down. He describes his pain as spasms and quite severe. He has been using ice. Denies bowel or bladder dysfunction. Typically ambulates independently at home but over the past week and a half is alternating between a cane and a walker. Upon admission he was found to have a urinary tract infection and is on antibiotics. Also anemic. Has a history of aortic dissection and valve replacement 10 years ago. He is now on Coumadin and Plavix. Allergies Allergy/AdvReac Type Severity Reaction Status Date / Time No Known Allergies Allergy Verified 05/26/24 09:34 Home Medications Medication Instructions Recorded Confirmed Type clopidogrel 75 mg tablet 75 mg PO QAM 11/12/18 05/26/24 History duloxetine 60 mg capsule,delayed 60 mg PO DAILY 11/12/18 05/26/24 History release warfarin 5 mg tablet See Rx Instructions .Route .COMPLEX 12/06/19 05/26/24 His tory duloxetine 30 mg capsule,delayed 30 mg PO DAILY 03/11/21 05/26/24 History release acetaminophen 500 mg tablet 1,000 mg PO Q6H PRN Pain 04/08/21 05/26/24 History (Tylenol Extra Strength) multivitamin 1 tab PO DAILY 04/20/21 05/26/24 History atorvastatin 10 mg tablet 10 mg PO HS 05/26/24 05/26/24 History cholecalciferol (vitamin D3) 125 125 mcg PO DAILY 05/26/24 05/26/24 History mcg (5,000 unit) tablet (Vitamin D3) losartan 50 mg tablet 50 mg PO BID 05/26/24 05/26/24 History metoprolol tartrate 25 mg tablet 75 mg PO BID 05/26/24 05/26/24 History Patient History Medical History (Updated 05/28/24 @ 12:14 by Lloyd Burrell DO) History of aortic dissection Atypical chest pain Gastroenteritis Generalized weakness Flu-like symptoms Acute chest pain LBBB (left bundle branch block) Congenital bicuspid aortic valve Chest pain Surgical History H/O mechanical aortic valve replacement Family History Mother Alive and well Father Alive and well Grandfather (Maternal) Coronary heart disease T2DM (type 2 diabetes mellitus) Grandmother (Maternal) T2DM (type 2 diabetes mellitus) Coronary heart disease Other No family history of kidney disease Social History Smoking Status: Former smoker Cigarettes Per Day: 1; Smoking End Date: 9 years ago; Second Hand Exposure: No; Do You Dip or Chew Tobacco: No; Tobacco Cessation Education Requested by Patient: No Hx Alcohol Use: No Hx Substance Use: No Preferred Language: Maltese Communication Ability: Effective 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 Required: No Beliefs That Will Affect Care: None marital status: Single Current Living Situation: Other Current Living Situation Comment: father lives with patient Other Information That Helps Us Care for You: No Feels Safe at Home: Yes Safety Concerns: Feels Safe At This Time Assistive Devices: Cane and Walker Review of Systems Review of Systems: All systems reviewed & are unremarkable except as noted in HPI & below Physical Exam Physical Exam: Laying in bed quite uncomfortable but cooperative with exam Alert and oriented x 3 He is able to roll over on his own for me for inspection of his thoracolumbar spine. There is bruising over the right lower buttock Nontender to position of the midline lumbar spine Nontender over the sciatic notch regions. Strength is 5/5 bilateral EHL, dorsiflexion, plantarflexion, quadriceps, hamstrings bilaterally Straight leg raising reproduces back pain only Negative logrolling bilaterally Results & Data Vital Signs (Past 12 Hours) Vital Signs Temp Pulse Resp BP Pulse Ox O2 Del Method 05/27/24 10:52 36.7 C 57 L 18 123/68 96 Room Air 05/27/24 07:32 36.9 C 73 19 127/71 93 Room Air 05/27/24 03:05 36.6 C 57 L 16 112/64 95 Room Air Diagnostic Findings [facility], [place] [phone] Magnetic Resonance Report Patient: ROWDY ARMIJO Admit Date: 05/26/24 MR#: [id number] Address1: [address] [place] [address] Acct ID:[id number] Address2: [place] [address] Date: 1985 [facility] Zip: [place] [address] Age: 38 Location: ED Sex: M Room/Bed: Att Phy: Diagnosis: FALL A WEEK AGO, PAIN ALL OVER Vivien Phy: Brian Guido MD Service Date: 05/26/24 Fam Phy: Interpreting Phy: Celestine DelgadoAdmit Phy: Ordering Phy: Gia Gordillo PA-C cc: ~ MR lumbar spine wo/w con CLINICAL HISTORY: 38 years-old Male with back pain. Acute low back pain status post fall COMPARISON: Lumbar spine CT of same day TECHNIQUE: Multiplanar, multi sequence MRI of the lumbar spine was performed without intravenous contrast. FINDINGS: Conus medullaris terminates at the T11-T12 level. There is normal signal within the imaged thoracic spinal cord and within the cauda equina. Distended urinary bladder. Trace ascites/presacral edema. There is moderate to severe discogenic degeneration at L5-S1 with vacuum disc phenomenon trace fluid within the disc space. There is moderate marrow and adjacent deep tissue edema and enhancement involving the L4-L5 facets with facet effusions. No acute fracture or subluxation. T12-L1: Mild to moderate intervertebral disc space narrowing with anterior bridging osteophytosis and small circumferential annular disc bulge. Mild facet arthrosis. No central canal or neural foraminal stenosis. L1-L2: Mild spondylotic spurring and facet arthrosis. No central canal or neural foraminal stenosis. L2-L3: Mild spondylotic spurring and facet arthrosis. Tiny posterior annular disc bulging. No central canal or neural foraminal stenosis. L3-L4: Disc desiccation. Mild intervertebral disc space narrowing and spondylotic spurring with tiny posterior annular disc bulge. Ligamentum flavum thickening with moderate facet arthrosis. Central canal is patent. Minimal inferior foraminal narrowing bilaterally. L4-L5: Disc desiccation. Mild intervertebral disc space narrowing and spondylotic spurring with tiny posterior annular disc bulge. Ligamentum flavum thickening with moderate to severe facet arthrosis. Edema and enhancement involves the right facet. Central canal is patent. Mild to moderate right with mild left foraminal narrowing. 1.3 cm synovial cyst posterior to the right facet joint. L5-S1: Moderate to severe intervertebral disc space narrowing. Spondylotic spurring with circumferential disc osteophyte and central disc protrusion measuring 1.5 cm transversely. Moderate facet arthrosis. Central canal is patent. At least moderate narrowing of the left lateral recess. Moderate left and small to moderate right foraminal narrowing. IMPRESSION: 1. No acute fracture or subluxation. 2. Degenerative changes as above, most pronounced at L4-L5 and L5-S1. Edema and enhancement involving the L4-L5 facets on the right, likely degenerative/reactive. 3. Trace pelvic ascites. ACT 112: Negative or not required by law. The above report was generated using voice recognition software. It may contain grammatical, syntax or spelling errors. Electronically signed by: Celestine Delgado M.D. 05/26/2024 2:32 PM Dictated: 05/26/24 1417 Transcribed: 05/26/24 1417 [place], [place] [phone] CT Scan Report Patient: ROWDY ARMIJO Admit Date: 05/26/24 MR#: [id number] Address1: [address] [place] [address] Acct ID:[id number] Address2: [address] Date: 1985 [facility] Zip: [place] [address] Age: 38 Location: ED Sex: M Room/Bed: Att Phy: Diagnosis: FALL A WEEK AGO, PAIN ALL OVER Vivien Phy: Pilgram, Brian A., MD Service Date: 05/26/24 [facility] Phy: Interpreting Phy: Jadon Hernandez MDAdmit Phy: Ordering Phy: Violette White CRNP cc: ~ CT abd pelvis IV con only, CT lumbar spine w con CLINICAL HISTORY: Trauma TECHNIQUE: Helical axial images of the abdomen and pelvis were obtained and displayed. Automated dose lowering techniques and/or adjustment according to patient size were utilized for this exam. Dedicated images of the lumbar spine were obtained. This exam was performed with intravenous contrast. CT DOSE: 3959.07 mGy.cm COMPARISON: Comparison is made to CT abdomen pelvis 04/20/2021 FINDINGS: Lower chest: Cardiomegaly is partially visualized. Liver: Focal irregularity in the right lobe of the liver is unchanged from prior exam which may represent prior scarring. Gallbladder and biliary tree: Patient is status post cholecystectomy. No intra- or extrahepatic biliary ductal dilation. Pancreas: Unremarkable, no focal lesions. Spleen: Unremarkable. Adrenals: Unremarkable. Kidneys and ureters: Unremarkable. Bladder: Unremarkable. Reproductive organs: Unremarkable. Bowel: Heidy-en-Y gastric bypass is seen. Lymph nodes Retroperitoneal: Subcentimeter lymph nodes are noted. Pelvic: Unremarkable. Mesenteric: Subcentimeter lymph nodes are noted. Peritoneum: Normal. Vessels: Chronic aortic dissection is unchanged from prior exam. Abdominal wall: Unremarkable. Bones: Degenerative changes in the visualized spine. No acute abnormalities and in particular no evidence of acute fracture is seen. IMPRESSION: 1. No evidence of acute abnormality and in particular no evidence of acute fracture. 2. Chronic aortic dissection is unchanged. 3. Status post cholecystomy. 4. Additional findings as above. ACT 112: Negative or not required by law. Electronically signed by: Jadon Hernandez M.D. 05/26/2024 9:45 AM Dictated: 05/26/24 0934 Transcribed: 05/26/24 0934 [facility], [place] [phone] CT Scan Report Patient: ROWDY ARMIJO Admit Date: 05/26/24 MR#: [id number] Address1: [address] [place] [address] Acct ID:[id number] Address2: [address] Date: 1985 [facility] Zip: [place] [address] Age: 38 Location: ED Sex: M Room/Bed: Att Phy: Diagnosis: FALL A WEEK AGO, PAIN ALL OVER Vivien Phy: Brian Guido MD Service Date: 05/26/24 [facility] Phy: Interpreting Phy: Celestine DelgadoAdmit Phy: Ordering Phy: Violette White CRNP cc: ~ CHEST CT WITH CONTRAST HISTORY: Acute chest and upper back pain status post trauma Trauma TECHNIQUE: Multiaxial CT images of the chest and thoracic spine were performed following the IV administration of 94 cc of Optiray. A dose lowering technique was utilized adhering to the principles of ALARA. COMPARISON: CT chest 09/08/2023 FINDINGS: CT CHEST: Type A thoracic aortic dissection redemonstrated with prior median sternotomy and prosthetic aortic valve. Postoperative changes of the thoracic aortic arch and proximal great vessels appears unchanged. Both the true and false lumens are patent. Heart is mildly enlarged. No pulmonary emboli identified. No pneumothorax, pleural effusion, airspace consolidation or pulmonary edema. Mild dependent subsegmental bibasilar atelectasis. Unremarkable soft tissues. No acute fracture identified. Cholecystectomy. Splenomegaly. Postoperative changes of the stomach and anterior abdominal wall. CT THORACIC SPINE: No acute thoracic spine fracture or subluxation identified. Multilevel intervertebral disc space narrowing, spondylitic spurring and facet arthrosis. No endplate erosions or destructive bone lesions. IMPRESSION: 1. No acute posttraumatic intrathoracic abnormality. 2. No acute fracture or pneumothorax identified. 3. Again seen is a Type A thoracic aortic dissection with postsurgical change as above. The postoperative appearance is likely unchanged from the 09/08/2023 examination. ACT 112: Negative or not required by law. Electronically signed by: Celestine Delgado M.D. 05/26/2024 10:15 AM Dictated: 05/26/24 1009 Transcribed: 05/26/24 1009 [facility], [place] [phone] CT Scan Report Patient: ROWDY ARMIJO Admit Date: 05/26/24 MR#: [id number] Address1: [address] [place] [address] Acct ID:[id number] Address2: [address] Date: 1985 [facility] Zip: [place] [address] Age: 38 Location: ED Sex: M Room/Bed: Att Phy: Diagnosis: FALL A WEEK AGO, PAIN ALL OVER Vivien Phy: Brian Guido MD Service Date: 05/26/24 [facility] Phy: Interpreting Phy: Bert Schaffer MDAdmit Phy: Ordering Phy: Violette White CRNP cc: ~ RIGHT HIP CT CT DOSE: HISTORY: Right hip pain. r/o hematoma TECHNIQUE: Multiaxial CT images of the right hip were performed and reformatted in the sagittal and coronal plane without the use of contrast. A dose lowering technique was utilized adhering to the principles of ALARA. COMPARISON: None. FINDINGS: No acute fracture or dislocation within the right hip. The patient has pelvic bones are intact. Soft tissues are unremarkable. No evidence for a soft tissue hematoma. IMPRESSION: No fracture or dislocation within the right hip. ACT 112: Negative or not required by law. Electronically signed by: Bert Schaffer M.D. 05/26/2024 12:05 PM Dictated: 05/26/24 1201 Transcribed: 05/26/24 1201 (1) Fall Encounter type: initial encounter Qualified Code(s): W19.XXXA - Unspecified fall, initial encounter
--- NOTE | 2024-05-27 14:13 | Hospitalist Progress Note ---
Date of Service May 27, 2024 Assessment & Plan (1) Fall: (2) Bacteremia: (3) Complicated UTI (urinary tract infection): (4) Ambulatory dysfunction: Plan Patient is 38-year-old male with PMH type I aortic dissection 07/2014 secondary to marked aortopathy s/p emergent aortic valve and root replacement with mechanical valve, with post discharge complication of cardiac tamponade requiring thoracotomy, pericardial window 07/29/2014, chronic diastolic heart failure, LBBB, HTN, dyslipidemia, obesity s/p gastric bypass, anxiety, depression, history DDD and others listed below presented to ER with c/o back pain after mechanical fall 1.5 weeks ago and weakness x 3 days with chills, sweats. Bacteremia Complicated UTI Pt presenting with chills and sweats, weakness after fall at home UA suggestive of infection urine culture currently growing gram negative rods Blood Cx x 2 sets currently growing gram positive cocci Continue with IV Zosyn and Vancomycin Infectious Disease consulted for further recs, uncertain source of gram positives? (?dental, ?wounds, ?IV drug use?) Cardiology consulted in setting of bacteremia and [facility] ordered and pending, will likely need RAHEL, NPO after midnight in case Continue to monitor Back pain Fall Degenerative Disc Disease CT Head: No acute intracranial hemorrhage, no evidence of acute territorial infarction or other acute intracranial disease process. CT C-Spine: No acute fracture CT Chest & Thoracic spine: No acute posttraumatic intrathoracic abnormality.No acute fracture or pneumothorax identified. Again seen is a Type A thoracic aortic dissection with postsurgical change as above. The postoperative appearance is likely unchanged from the 09/08/[address] lumbar spine: No evidence of acute abnormality and in particular no evidence of acute fracture. CT abd/pelvis:No evidence of acute abnormality and in particular no evidence of acute fracture. Chronic aortic dissection is unchanged. Status post cholecystomy. CT hip:No fracture or dislocation within the right hip. MRI Spine noting "Degenerative changes as above, most pronounced at L4-L5 and L5-S1. Edema and enhancement involving the L4-L5 facets on the right, likely degenerative/reactive." In ER given Flexeril and IV Tylenol with reported some improvement of back pain Scheduled IV Tylenol, oxycodone, Dilaudid, lidocaine patch as needed for pain Flexeril as needed for muscle spasm Ortho spine consulted appreciate recs Pain Management consulted, appreciate recs Iron deficiency Anemia Denies CP, SOB, melena, hematochezia Hgb: 8.8. 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 Reassess volume status Monitor H&H INR in a.m Cardiology consulted as noted above HTN (hypertension): Continue metoprolol, losartan HLD (hyperlipidemia) Continue atorvastatin Anxiety and depression Continue duloxetine History of gastric bypass: Obesity: Stable DVT Prophylaxis: Anticoagulated on warfarin, therapeutic INR currently Conditional Code, Wants CPR, defibrillation, medications but does not want intubation or mechanical ventilation as per discussion with pt Dispo: PT/OT recs once Admission and Anticipated Discharge Date Admission Date: May 26, 2024 Subjective Pt was seen in the AM. very sleepy, states he did not sleep overnight. States still having the back pain. Review of Systems Review of Systems: All systems reviewed & are unremarkable except as noted in Subjective Physical Exam Physical Exam: General: sleepy. No acute distress Psych: Appropriate mood and affect Neuro: sleepy HEENT: NC/AT CV: RRR, mechanical murmur Resp: no increased effort of breathing Abdomen: tender Extremities: edema in lower extremities Results & Data Results & Data Vital Signs (Past 12 Hours) Vital Signs Temp Pulse Pulse Resp BP Pulse Ox O2 Del Method 05/27/24 10:52 36.7 C 57 L 18 123/68 96 Room Air 05/27/24 08:00 61 05/27/24 07:32 36.9 C 73 19 127/71 93 Room Air 05/27/24 03:05 36.6 C 57 L 16 112/64 95 Room Air Diagnostic Findings Abdomen/Pelvis CT 05/26/24 08:45 CT abd pelvis IV con only, CT lumbar spine w con CLINICAL HISTORY: Trauma TECHNIQUE: Helical axial images of the abdomen and pelvis were obtained and displayed. Automated dose lowering techniques and/or adjustment according to patient size were utilized for this exam. Dedicated images of the lumbar spine were obtained. This exam was performed with intravenous contrast. CT DOSE: 3959.07 mGy.cm COMPARISON: Comparison is made to CT abdomen pelvis 04/20/2021 FINDINGS: Lower chest: Cardiomegaly is partially visualized. Liver: Focal irregularity in the right lobe of the liver is unchanged from prior exam which may represent prior scarring. Gallbladder and biliary tree: Patient is status post cholecystectomy. No intra- or extrahepatic biliary ductal dilation. Pancreas: Unremarkable, no focal lesions. Spleen: Unremarkable. Adrenals: Unremarkable. Kidneys and ureters: Unremarkable. Bladder: Unremarkable. Reproductive organs: Unremarkable. Bowel: Heidy-en-Y gastric bypass is seen. Lymph nodes Retroperitoneal: Subcentimeter lymph nodes are noted. Pelvic: Unremarkable. Mesenteric: Subcentimeter lymph nodes are noted. Peritoneum: Normal. Vessels: Chronic aortic dissection is unchanged from prior exam. Abdominal wall: Unremarkable. Bones: Degenerative changes in the visualized spine. No acute abnormalities and in particular no evidence of acute fracture is seen. IMPRESSION: 1. No evidence of acute abnormality and in particular no evidence of acute fracture. 2. Chronic aortic dissection is unchanged. 3. Status post cholecystomy. 4. Additional findings as above. ACT 112: Negative or not required by law. Electronically signed by: Jadon Hernandez M.D. 05/26/2024 9:[address] 05/26/24 08:45 CT cervical spine wo con CLINICAL HISTORY: 38 years-old Male with Trauma. Acute neck pain status post fall COMPARISON: Head CT of same day, CT cervical spine 04/25/2022 TECHNIQUE: Multiple axial CT images of the cervical spine were obtained without contrast. A dose lowering technique was utilized adhering to the principles of ALARA. FINDINGS: This study is mildly compromised by artifact which affects visualization of the mid to lower cervical spine. Mild multilevel degenerative changes are present. Alignment of the cervical spine is anatomic. Vertebral body heights are maintained. No acute cervical spine fracture or subluxation is present. There is no prevertebral edema. Facet joints are intact. The cervical soft tissues appear unremarkable. Dental caries with periapical cyst noted within the left mandible. Median sternotomy. The visualized lung apices appear clear. IMPRESSION: No acute cervical spine fracture or subluxation identified. ACT 112: Negative or not required by law. The above report was generated using voice recognition software. It may contain grammatical, syntax or spelling errors. Electronically signed by: Celestine Delgado M.D. 05/26/2024 9:[address] 05/26/24 08:[address] WITH CONTRAST HISTORY: Acute chest and upper back pain status post trauma Trauma TECHNIQUE: Multiaxial CT images of the chest and thoracic spine were performed following the IV administration of 94 cc of Optiray. A dose lowering technique was utilized adhering to the principles of ALARA. COMPARISON: CT chest 09/08/2023 FINDINGS: CT CHEST: Type A thoracic aortic dissection redemonstrated with prior median sternotomy and prosthetic aortic valve. Postoperative changes of the thoracic aortic arch and proximal great vessels appears unchanged. Both the true and false lumens are patent. Heart is mildly enlarged. No pulmonary emboli identified. No pneumothorax, pleural effusion, airspace consolidation or pulmonary edema. Mild dependent subsegmental bibasilar atelectasis. Unremarkable soft tissues. No acute fracture identified. Cholecystectomy. Splenomegaly. Postoperative changes of the stomach and anterior abdominal wall. CT THORACIC SPINE: No acute thoracic spine fracture or subluxation identified. Multilevel intervertebral disc space narrowing, spondylitic spurring and facet arthrosis. No endplate erosions or destructive bone lesions. IMPRESSION: 1. No acute posttraumatic intrathoracic abnormality. 2. No acute fracture or pneumothorax identified. 3. Again seen is a Type A thoracic aortic dissection with postsurgical change as above. The postoperative appearance is likely unchanged from the 09/08/2023 examination. ACT 112: Negative or not required by law. Electronically signed by: Celestine Delgado M.D. 05/26/2024 10:[address] 05/26/24 08:45 CT head/brain wo con CLINICAL HISTORY: Trauma Technique: Contiguous axial CT images of the head were acquired from the base of the skull to the vertex without intravenous contrast administration. Images were viewed in brain, subdural and bone windows. Automated dose lowering techniques and/or adjustment according to patient size were utilized for this exam. Comparison: None available at the time of this dictation. Findings: The ventricles, basal cisterns, and cerebral sulci are normal. There is no acute intracranial hemorrhage or evidence of acute territorial infarction. Neither mass effect, shift of the midline structures, nor abnormal extra-axial fluid collections are shown. Imaged portions of the paranasal sinuses and mastoid air cells are clear. The orbits appear normal. There are no acute fractures of the calvaria or scalp swelling. Impression: No acute intracranial hemorrhage, no evidence of acute territorial infarction or other acute intracranial disease process. ACT 112: Negative or not required by law. Electronically signed by: Jadon Hernandez M.D. 05/26/2024 9:[address] 05/26/24 08:49 CT abd pelvis IV con only, CT lumbar spine w con CLINICAL HISTORY: Trauma TECHNIQUE: Helical axial images of the abdomen and pelvis were obtained and displayed. Automated dose lowering techniques and/or adjustment according to patient size were utilized for this exam. Dedicated images of the lumbar spine were obtained. This exam was performed with intravenous contrast. CT DOSE: 3959.07 mGy.cm COMPARISON: Comparison is made to CT abdomen pelvis 04/20/2021 FINDINGS: Lower chest: Cardiomegaly is partially visualized. Liver: Focal irregularity in the right lobe of the liver is unchanged from prior exam which may represent prior scarring. Gallbladder and biliary tree: Patient is status post cholecystectomy. No intra- or extrahepatic biliary ductal dilation. Pancreas: Unremarkable, no focal lesions. Spleen: Unremarkable. Adrenals: Unremarkable. Kidneys and ureters: Unremarkable. Bladder: Unremarkable. Reproductive organs: Unremarkable. Bowel: Heidy-en-Y gastric bypass is seen. Lymph nodes Retroperitoneal: Subcentimeter lymph nodes are noted. Pelvic: Unremarkable. Mesenteric: Subcentimeter lymph nodes are noted. Peritoneum: Normal. Vessels: Chronic aortic dissection is unchanged from prior exam. Abdominal wall: Unremarkable. Bones: Degenerative changes in the visualized spine. No acute abnormalities and in particular no evidence of acute fracture is seen. IMPRESSION: 1. No evidence of acute abnormality and in particular no evidence of acute fracture. 2. Chronic aortic dissection is unchanged. 3. Status post cholecystomy. 4. Additional findings as above. ACT 112: Negative or not required by law. Electronically signed by: Jadon Hernandez M.D. 05/26/2024 9:[address] 05/26/24 08:[address] WITH CONTRAST HISTORY: Acute chest and upper back pain status post trauma Trauma TECHNIQUE: Multiaxial CT images of the chest and thoracic spine were performed following the IV administration of 94 cc of Optiray. A dose lowering technique was utilized adhering to the principles of ALARA. COMPARISON: CT chest 09/08/2023 FINDINGS: CT CHEST: Type A thoracic aortic dissection redemonstrated with prior median sternotomy and prosthetic aortic valve. Postoperative changes of the thoracic aortic arch and proximal great vessels appears unchanged. Both the true and false lumens are patent. Heart is mildly enlarged. No pulmonary emboli identified. No pneumothorax, pleural effusion, airspace consolidation or pulmonary edema. Mild dependent subsegmental bibasilar atelectasis. Unremarkable soft tissues. No acute fracture identified. Cholecystectomy. Splenomegaly. Postoperative changes of the stomach and anterior abdominal wall. CT THORACIC SPINE: No acute thoracic spine fracture or subluxation identified. Multilevel intervertebral disc space narrowing, spondylitic spurring and facet arthrosis. No endplate erosions or destructive bone lesions. IMPRESSION: 1. No acute posttraumatic intrathoracic abnormality. 2. No acute fracture or pneumothorax identified. 3. Again seen is a Type A thoracic aortic dissection with postsurgical change as above. The postoperative appearance is likely unchanged from the 09/08/2023 examination. ACT 112: Negative or not required by law. Electronically signed by: Celestine Delgado M.D. 05/26/2024 10:[address] 05/26/24 11:[address] DOSE: HISTORY: Right hip pain. r/o hematoma TECHNIQUE: Multiaxial CT images of the right hip were performed and reformatted in the sagittal and coronal plane without the use of contrast. A dose lowering technique was utilized adhering to the principles of ALARA. COMPARISON: None. FINDINGS: No acute fracture or dislocation within the right hip. The patient has pelvic bones are intact. Soft tissues are unremarkable. No evidence for a soft tissue hematoma. IMPRESSION: No fracture or dislocation within the right hip. ACT 112: Negative or not required by law. Electronically signed by: Bert Schaffer M.D. 05/26/2024 12:05 PM Lumbar Spine MRI 05/26/24 11:57 MR lumbar spine wo/w con CLINICAL HISTORY: 38 years-old Male with back pain. Acute low back pain status post fall COMPARISON: Lumbar spine CT of same day TECHNIQUE: Multiplanar, multi sequence MRI of the lumbar spine was performed without intravenous contrast. FINDINGS: Conus medullaris terminates at the T11-T12 level. There is normal signal within the imaged thoracic spinal cord and within the cauda equina. Distended urinary bladder. Trace ascites/presacral edema. There is moderate to severe discogenic degeneration at L5-S1 with vacuum disc phenomenon trace fluid within the disc space. There is moderate marrow and adjacent deep tissue edema and enhancement involving the L4-L5 facets with facet effusions. No acute fracture or subluxation. T12-L1: Mild to moderate intervertebral disc space narrowing with anterior bridging osteophytosis and small circumferential annular disc bulge. Mild facet arthrosis. No central canal or neural foraminal stenosis. L1-L2: Mild spondylotic spurring and facet arthrosis. No central canal or neural foraminal stenosis. L2-L3: Mild spondylotic spurring and facet arthrosis. Tiny posterior annular disc bulging. No central canal or neural foraminal stenosis. L3-L4: Disc desiccation. Mild intervertebral disc space narrowing and spondylotic spurring with tiny posterior annular disc bulge. Ligamentum flavum thickening with moderate facet arthrosis. Central canal is patent. Minimal inferior foraminal narrowing bilaterally. L4-L5: Disc desiccation. Mild intervertebral disc space narrowing and spondylotic spurring with tiny posterior annular disc bulge. Ligamentum flavum thickening with moderate to severe facet arthrosis. Edema and enhancement involves the right facet. Central canal is patent. Mild to moderate right with mild left foraminal narrowing. 1.3 cm synovial cyst posterior to the right facet joint. L5-S1: Moderate to severe intervertebral disc space narrowing. Spondylotic spurring with circumferential disc osteophyte and central disc protrusion measuring 1.5 cm transversely. Moderate facet arthrosis. Central canal is patent. At least moderate narrowing of the left lateral recess. Moderate left and small to moderate right foraminal narrowing. IMPRESSION: 1. No acute fracture or subluxation. 2. Degenerative changes as above, most pronounced at L4-L5 and L5-S1. Edema and enhancement involving the L4-L5 facets on the right, likely degenerative/reactive. 3. Trace pelvic ascites. ACT 112: Negative or not required by law. The above report was generated using voice recognition software. It may contain grammatical, syntax or spelling errors. Electronically signed by: Celestine Delgado M.D. 05/26/2024 2:32 PM (1) Fall Encounter type: initial encounter Qualified Code(s): W19.XXXA - Unspecified fall, initial encounter
[2024-05-27] MEDS ORDERED: VANCOMYCIN CONSULT ACTIVE PRN (17:40)
[2024-05-27] MEDS ORDERED: VANCOMYCIN HCL 2,000 MG in SODIUM CHLORIDE 0.9% 500 ML IV SCH (17:45)
[2024-05-27] MEDS: CALCIUM GLUCONATE 1,000 MG/60 ML BAG IV SCH (19:18)
[2024-05-27] MEDS: LIDOCAINE 5% 1 PATCH TD SCH (19:35)
[2024-05-27] MEDS: VANCOMYCIN HCL 1,250 MG in SODIUM CHLORIDE 0.9% 250 ML IV SCH (19:36)
[2024-05-27] MEDS: IRON SUCROSE 200 MG in 0.9 % SODIUM CHLORIDE 100 ML IV ONE (19:52)
[2024-05-28] MEDS: ACETAMINOPHEN 1,000 MG/100 ML VIAL IV SCH (00:35)
[2024-05-28] MEDS: oxyCODONE HCL IR 5 MG TAB (IMMEDIATE RELEASE) PO PRN (02:52)
[2024-05-28 06:32] LABS: Basophils # (auto) 0.02 K/uL (0.00-0.20); Basophils % (auto) 0.4 %; Eosinophils # (auto) 0.07 K/uL (0.00-0.50); Eosinophils % (auto) 1.3 %; Hematocrit (blood only) 29.9 % (42.0-52.0); Hemoglobin 9.1 g/dl (14.0-18.0); Immature Granulocytes # (auto) 0.02 K/uL (0.01-0.20); Immature Granulocytes % (auto) 0.4 %; Lymphocytes # (auto) 1.22 K/uL (1.20-3.40); Lymphocytes % (auto) 22.7 %; Mean Corpuscular Hemoglobin 23.8 pg (25.0-34.0); Mean Corpuscular Hgb Conc 30.4 g/dL (32.0-36.0); Mean Corpuscular Volume 78.3 fL (80.0-100.0); Mean Platelet Volume 9.7 fL (9.4-12.4); Monocytes # (auto) 0.45 K/uL (0.11-0.59); Monocytes % (auto) 8.4 %; Neutrophils % (auto) 66.8 %; Platelet Count 285 K/uL (130-400); RDW Coefficient of Variation 16.2 % (11.5-14.5); RDW Standard Deviation 45.9 fL (36.4-46.3); Red Blood Count 3.82 M/uL (4.70-6.10); White Blood Count 5.38 K/ul (4.8-10.8)
[2024-05-28 06:46] LABS: Albumin Globulin Ratio 0.6 (0.9-2); Albumin Level 2.6 gm/dl (3.4-5.0); BUN Creatinine Ratio 10.3 (10-20); Bilirubin,Total 0.5 mg/dl (0.2-1.0); Calcium 8.7 mg/dl (8.6-10.3); Creatinine Clr Calc Pharmacy 177.2 ml/min; Est GFR (African American) 133.7 ml/min; Est GFR (Non-African American) 115.3 ml/min; Globulin 4.3 gm/dl (2.5-4.0); Magnesium 1.9 mg/dl (1.7-2.4); Phosphorus 4.7 mg/dl (2.5-4.9); Potassium 4.3 mmol/L (3.5-5.1); Total Protein 6.9 gm/dl (6.0-8.3)
[2024-05-28 06:54] LABS: Prothrombin Time 29.4 Seconds (9.0-12.0)
[2024-05-28] MEDS: VANCOMYCIN LEVEL ONE (08:15)
[2024-05-28] MEDS ORDERED: methylPREDNISolone 4 MG TAB, 6 DAY TAPER PO SCH (08:45)
--- NOTE | 2024-05-28 08:47 | Pain Management Consultation ---
Date of Consultation May 28, 2024 Assessment & Plan (1) Fall: Encounter type: initial encounter Qualified Code(s): W19.XXXA - Unspecified fall, initial encounter (2) Lumbar facet joint syndrome: (3) DDD (degenerative disc disease), lumbar: (4) Anticoagulated on warfarin: (5) UTI (urinary tract infection): (6) H/O mechanical aortic valve replacement: (7) S/P AAA repair: Plan 1. Patient with acute right-sided axial low back pain status post a recent fall injury with visible ecchymosis in the gluteal region with imaging failing to reveal any acute findings. We discussed the likelihood of intramuscular bleeding due to his chronic anticoagulation therapy from the fall with visible ecchymosis contributing to his increased pain complaints. He also has longstanding lumbar degenerative disc disease and recent MRI findings of lumbar facet arthrosis with a synovial cyst identified on the right at L4-5 measuring 1.3 cm of the facet joint location. We discussed that this could contribute to back pain as well as radicular pattern pain although his current radicular pain complaint is nondermatomal in nature. Patient is a poor candidate for interventional treatment at this time due to his UTI as well as his chronic anticoagulation therapy. 2. Will recommend addition of Medrol Dosepak at this time in an attempt to reduce inflammatory response since the time of the fall. Side effects versus benefits reviewed and he verbalized understanding. 3. Recommend he continue with muscle relaxer therapy and consider transitioning to scheduled dosing 4. Continue to monitor response to opiate utilization as he does appear sedated with his use of IV hydromorphone this morning. Recommend naloxone be available 5. Continue with lidocaine patch. 6. Pain service will sign off on patient at this time. Please contact pain service for reevaluation as needed. History of Present Illness Reason for Consultation: Intractable right-sided low back pain and right lower extremity pain Requesting Physician: Bruce Li DO Attending Physician: Kelsi Prince MD History of Present Illness Mr. Armijo is a 38-year-old white male with past medical history significant for type I aortic dissection 07/23/2014 secondary to marked aortopathy status post emergent aortic valve and root replacement with mechanical valve with post discharge complication of cardiac tamponade requiring thoracotomy and pericardial window 07/29/2014, chronic diastolic heart failure, left bundle branch block, hypertension, dyslipidemia, obesity status post gastric bypass, anxiety disorder, depression and chronic anticoagulation who was admitted due complaints of intractable right-sided low back pain extending into the right lower extremity status post a mechanical fall approximately 1-1/2 weeks ago. The patient reports that he was descending stairs whenever he missed a step and fell directly onto his buttock/tailbone location. He reports the pain progressed after 2-3 days of the fall. He was experiencing significant pain and spasm with movement which led to his admission 2 days ago. Patient reports his pain is 70% axial in the right lumbosacral region in the right gluteal area with a 30% radicular pattern pain into the right leg to the level of the foot in a nondermatomal pattern. He reports the pain is minimal in the supine position but exacerbates immediately upon movement. His pain has been improved over the past 24 hours with addition of the muscle relaxer and opiate therapy. Patient rates his pain a 2-3/10 at its best while still in the supine position. His pain can escalate to a 9/10 with movement. He describes some tingling sensation affecting the feet bilaterally. He denies any left lower extremity radicular pattern pain. The patient denies bowel/bladder incontinence or saddle anesthesia. He does describe some weakness of the right lower extremity with movement, but denies foot drop or falling other than the described episode which led to admission. Plan of care discussed with Dr. Ciera Hudson. Pain Assessment Full Body Front + Back: 2 1. Right-sided lumbosacral and gluteal region pain 2. Right lower extremity pain to ankle-nondermatomal 3. Right lower extremity pain to foot-nondermatomal Pain scale - at its best (0-10): 2 Pain scale - at its worst (0-10): 9 Allergies Allergy/AdvReac Type Severity Reaction Status Date / Time No Known Allergies Allergy Verified 05/26/24 09:34 Home Medications Medication Instructions Recorded Confirmed Type clopidogrel 75 mg tablet 75 mg PO QAM 11/12/18 05/26/24 History duloxetine 60 mg capsule,delayed 60 mg PO DAILY 11/12/18 05/26/24 History release warfarin 5 mg tablet See Rx Instructions .Route .COMPLEX 12/06/19 05/26/24 History duloxetine 30 mg capsule,delayed 30 mg PO DAILY 03/11/21 05/26/24 History release acetaminophen 500 mg tablet 1,000 mg PO Q6H PRN Pain 04/08/21 05/26/24 History (Tylenol Extra Strength) multivitamin 1 tab PO DAILY 04/20/21 05/26/24 History atorvastatin 10 mg tablet 10 mg PO HS 05/26/24 05/26/24 History cholecalciferol (vitamin D3) 125 125 mcg PO DAILY 05/26/24 05/26/24 History mcg (5,000 unit) tablet (Vitamin D3) losartan 50 mg tablet 50 mg PO BID 05/26/24 05/26/24 History metoprolol tartrate 25 mg tablet 75 mg PO BID 05/26/24 05/26/24 History Pain History Pain Intensity Pain scale - at its best (0-10): 2 Pain scale - at its worst (0-10): 9 Patient History Medical History (Updated 05/28/24 @ 08:56 by Tahir Steele PA-C) History of aortic dissection Atypical chest pain Gastroenteritis Generalized weakness Flu-like symptoms Acute chest pain LBBB (left bundle branch block) Congenital bicuspid aortic valve Chest pain Surgical History H/O mechanical aortic valve replacement Family History Mother Alive and well Father Alive and well Grandfather (Maternal) Coronary heart disease T2DM (type 2 diabetes mellitus) Grandmother (Maternal) T2DM (type 2 diabetes mellitus) Coronary heart disease Other No family history of kidney disease Social History Smoking Status: Former smoker Cigarettes Per Day: 1; Smoking End Date: 9 years ago; Second Hand Exposure: No; Do You Dip or Chew Tobacco: No; Tobacco Cessation Education Requested by Patient: No Hx Alcohol Use: No Hx Substance Use: No Preferred Language: [place] Zealander Communication Ability: Effective Keg Varnisher Required: No Beliefs That Will Affect Care: None marital status: Single Current Living Situation: Other Current Living Situation Comment: father lives with patient Other Information That Helps Us Care for You: No Feels Safe at Home: Yes Safety Concerns: Feels Safe At This Time Assistive Devices: Cane and Walker Physical Exam 2 Physical Exam: General: Patient lying quietly in exam room in no acute distress. Speech and thought process appropriate. Mood and affect appropriate. Cognition intact. Patient appeared to be somewhat sedate-dose of hydromorphone 0.5 mg at 0721. Head: Normocephalic and atraumatic. ENT: No evidence of nasal or oral mucosal lesions. Mucous membranes are moist. Eyes: Pupils equal round reactive to light. Neck: Supple without adenopathy and full range of motion. Chest: Nontender to palpation of the costosternal junction. Cardiac: Mechanical valve is audible. Lungs: Clear to auscultation no wheeze or rhonchi. Abdomen: Soft and nondistended. No organomegaly. Bowel sounds active. Back/spine: Patient was able to logroll towards his left side without assistance with report of increased back pain. Patient appears to have some ecchymosis throughout the right gluteal region. Patient has generalized tenderness over the entire right-sided lumbosacral and gluteal region to palpation with slight hyperalgesia. No focal midline, facet joint or SI joint tenderness appreciated. Lower extremities: Sensation was intact distally to sharp and dull. Strength testing was 5/5 with dorsiflexion, plantarflexion and hip flexion maneuvering although patient somewhat hesitant to movement on the right side due to increased pain. Trace ankle edema was noted bilaterally. SLR contributed to increased lumbosacral/gluteal region pain extending to the posterior thigh on the right. SLR negative on the left. Hip is nontender with internal and external rotation. Neurologic: Cranial nerves grossly intact. Ambulatory function not witnessed. Results (Pain Clinic) Diagnostic Review MRI Findings: [place], [place] [phone] Magnetic Resonance Report Patient: ROWDY ARMIJO Admit Date: 05/26/24 MR#: [id number] Address1: [address] [place] [address] Acct ID:[id number] Address2: [address] Date: 1985 [facility] Zip: [place] [address] Age: 38 Location: ED Sex: M Room/Bed: Att Phy: Diagnosis: FALL A WEEK AGO, PAIN ALL OVER Vivien Phy: Brian Guido MD Service Date: 05/26/24 [facility] Phy: Interpreting Phy: Celestine DelgadoAdmit Phy: Ordering Phy: Gia Gordillo PA-C cc: ~ MR lumbar spine wo/w con CLINICAL HISTORY: 38 years-old Male with back pain. Acute low back pain status post fall COMPARISON: Lumbar spine CT of same day TECHNIQUE: Multiplanar, multi sequence MRI of the lumbar spine was performed without intravenous contrast. FINDINGS: Conus medullaris terminates at the T11-T12 level. There is normal signal within the imaged thoracic spinal cord and within the cauda equina. Distended urinary bladder. Trace ascites/presacral edema. There is moderate to severe discogenic degeneration at L5-S1 with vacuum disc phenomenon trace fluid within the disc space. There is moderate marrow and adjacent deep tissue edema and enhancement involving the L4-L5 facets with facet effusions. No acute fracture or subluxation. T12-L1: Mild to moderate intervertebral disc space narrowing with anterior bridging osteophytosis and small circumferential annular disc bulge. Mild facet arthrosis. No central canal or neural foraminal stenosis. L1-L2: Mild spondylotic spurring and facet arthrosis. No central canal or neural foraminal stenosis. L2-L3: Mild spondylotic spurring and facet arthrosis. Tiny posterior annular disc bulging. No central canal or neural foraminal stenosis. L3-L4: Disc desiccation. Mild intervertebral disc space narrowing and spondylotic spurring with tiny posterior annular disc bulge. Ligamentum flavum thickening with moderate facet arthrosis. Central canal is patent. Minimal inferior foraminal narrowing bilaterally. L4-L5: Disc desiccation. Mild intervertebral disc space narrowing and spondylotic spurring with tiny posterior annular disc bulge. Ligamentum flavum thickening with moderate to severe facet arthrosis. Edema and enhancement involves the right facet. Central canal is patent. Mild to moderate right with mild left foraminal narrowing. 1.3 cm synovial cyst posterior to the right facet joint. L5-S1: Moderate to severe intervertebral disc space narrowing. Spondylotic spurring with circumferential disc osteophyte and central disc protrusion measuring 1.5 cm transversely. Moderate facet arthrosis. Central canal is patent. At least moderate narrowing of the left lateral recess. Moderate left and small to moderate right foraminal narrowing. IMPRESSION: 1. No acute fracture or subluxation. 2. Degenerative changes as above, most pronounced at L4-L5 and L5-S1. Edema and enhancement involving the L4-L5 facets on the right, likely degenerative/reactive. 3. Trace pelvic ascites. ACT 112: Negative or not required by law. The above report was generated using voice recognition software. It may contain grammatical, syntax or spelling errors. Electronically signed by: Celestine Delgado M.D. 05/26/2024 2:32 PM Dictated: 05/26/[address] Findings: [facility], [place] [phone] CT Scan Report Patient: ROWDY ARMIJO Admit Date: 05/26/24 MR#: [id number] Address1: [address] [place] [address] Acct ID:[id number] Address2: [place] [address] Date: 1985 [facility] Zip: [place] [address] Age: 38 Location: ED Sex: M Room/Bed: Att Phy: Diagnosis: FALL A WEEK AGO, PAIN ALL OVER Vivien Phy: Brian Guido MD Service Date: 05/26/24 Fam Phy: Interpreting Phy: Bert Schaffer MDAdmit Phy: Ordering Phy: Violette White CRNP cc: ~ RIGHT HIP CT CT DOSE: HISTORY: Right hip pain. r/o hematoma TECHNIQUE: Multiaxial CT images of the right hip were performed and reformatted in the sagittal and coronal plane without the use of contrast. A dose lowering technique was utilized adhering to the principles of ALARA. COMPARISON: None. FINDINGS: No acute fracture or dislocation within the right hip. The patient has pelvic bones are intact. Soft tissues are unremarkable. No evidence for a soft tissue hematoma. IMPRESSION: No fracture or dislocation within the right hip. ACT 112: Negative or not required by law. Electronically signed by: Bert Schaffer M.D. 05/26/2024 12:05 PM Dictated: 05/26/24 1201 Transcribed: 05/26/24 1201 [facility], [place] [phone] CT Scan Report Patient: ROWDY ARMIJO Admit Date: 05/26/24 MR#: [id number] Address1: [address] [facility] Acct ID:[id number] Address2: [facility] [address] Date: 1985 [facility] Zip: [place] [address] Age: 38 Location: ED Sex: M Room/Bed: Att Phy: Diagnosis: FALL A WEEK AGO, PAIN ALL OVER Vivien Phy: Brian Guido MD Service Date: 05/26/24 [facility] Phy: Interpreting Phy: Celestine DelgadoAdmit Phy: Ordering Phy: Violette White CRNP cc: ~ CHEST CT WITH CONTRAST HISTORY: Acute chest and upper back pain status post trauma Trauma TECHNIQUE: Multiaxial CT images of the chest and thoracic spine were performed following the IV administration of 94 cc of Optiray. A dose lowering technique was utilized adhering to the principles of ALARA. COMPARISON: CT chest 09/08/2023 FINDINGS: CT CHEST: Type A thoracic aortic dissection redemonstrated with prior median sternotomy and prosthetic aortic valve. Postoperative changes of the thoracic aortic arch and proximal great vessels appears unchanged. Both the true and false lumens are patent. Heart is mildly enlarged. No pulmonary emboli identified. No pneumothorax, pleural effusion, airspace consolidation or pulmonary edema. Mild dependent subsegmental bibasilar atelectasis. Unremarkable soft tissues. No acute fracture identified. Cholecystectomy. Splenomegaly. Postoperative changes of the stomach and anterior abdominal wall. CT THORACIC SPINE: No acute thoracic spine fracture or subluxation identified. Multilevel intervertebral disc space narrowing, spondylitic spurring and facet arthrosis. No endplate erosions or destructive bone lesions. IMPRESSION: 1. No acute posttraumatic intrathoracic abnormality. 2. No acute fracture or pneumothorax identified. 3. Again seen is a Type A thoracic aortic dissection with postsurgical change as above. The postoperative appearance is likely unchanged from the 09/08/2023 examination. ACT 112: Negative or not required by law. Electronically signed by: Celestine Delgado M.D. 05/26/2024 10:15 AM Dictated: 05/26/24 1009 Transcribed: 05/26/24 1009 [facility], [place] [phone] CT Scan Report Patient: ROWDY ARMIJO Admit Date: 05/26/24 MR#: [id number] Address1: [address] [place] [address] Acct ID:[id number] Address2: [address] Date: 1985 [facility] Zip: [place] [address] Age: 38 Location: ED Sex: M Room/Bed: Att Phy: Diagnosis: FALL A WEEK AGO, PAIN ALL OVER Vivien Phy: Brian Guido MD Service Date: 05/26/24 [facility] Phy: Interpreting Phy: Jadon Hernandez MDAdmit Phy: Ordering Phy: Violette White CRNP cc: ~ CT abd pelvis IV con only, CT lumbar spine w con CLINICAL HISTORY: Trauma TECHNIQUE: Helical axial images of the abdomen and pelvis were obtained and displayed. Automated dose lowering techniques and/or adjustment according to patient size were utilized for this exam. Dedicated images of the lumbar spine were obtained. This exam was performed with intravenous contrast. CT DOSE: 3959.07 mGy.cm COMPARISON: Comparison is made to CT abdomen pelvis 04/20/2021 FINDINGS: Lower chest: Cardiomegaly is partially visualized. Liver: Focal irregularity in the right lobe of the liver is unchanged from prior exam which may represent prior scarring. Gallbladder and biliary tree: Patient is status post cholecystectomy. No intra- or extrahepatic biliary ductal dilation. Pancreas: Unremarkable, no focal lesions. Spleen: Unremarkable. Adrenals: Unremarkable. Kidneys and ureters: Unremarkable. Bladder: Unremarkable. Reproductive organs: Unremarkable. Bowel: Heidy-en-Y gastric bypass is seen. Lymph nodes Retroperitoneal: Subcentimeter lymph nodes are noted. Pelvic: Unremarkable. Mesenteric: Subcentimeter lymph nodes are noted. Peritoneum: Normal. Vessels: Chronic aortic dissection is unchanged from prior exam. Abdominal wall: Unremarkable. Bones: Degenerative changes in the visualized spine. No acute abnormalities and in particular no evidence of acute fracture is seen. IMPRESSION: 1. No evidence of acute abnormality and in particular no evidence of acute fracture. 2. Chronic aortic dissection is unchanged. 3. Status post cholecystomy. 4. Additional findings as above. ACT 112: Negative or not required by law. Electronically signed by: Jadon Hernandez M.D. 05/26/2024 9:45 AM Dictated: 05/26/2434 Transcribed: 05/26/2434
[2024-05-28] MEDS ORDERED: PANTOprazole 40 MG in SYRINGE 0 ML IV SCH (09:15)
[2024-05-28] MEDS ORDERED: PROPOFOL IV EMULSION 10 MG/ML 20 ML VIAL IV ONE ×3 (09:31→10:55)
[2024-05-28] MEDS ORDERED: MIDAZOLAM HCL 1 MG/ML 2ML VIAL ONE (09:31)
--- NOTE | 2024-05-28 09:36 | Anesthesiology Consultation ---
Date of Service May 28, 2024 Assessment & Plan (1) Encounter for pre-operative examination: Chart Review Chart Review: Acceptable Risk for Surgery and Patient NOT seen in Pre Admission Testing Consults Requested none History Surgery Operation Date: 05/28/24 10:00 Proposed Procedures p Transesophageal Echo w/Anesthesia - Lloyd Burrell DO Height/Weight Height: 6 ft Weight: 125.2 kg Allergies Allergy/AdvReac Type Severity Reaction Status Date / Time No Known Allergies Allergy Verified 05/26/24 09:34 Medications Home Medications Medication Instructions Recorded Confirmed Last Taken clopidogrel 75 mg tablet 75 mg PO QAM 11/12/18 05/26/24 05/25/24 duloxetine 60 mg capsule,delayed 60 mg PO DAILY 11/12/18 05/26/24 05/25/24 release warfarin 5 mg tablet See Rx Instructions .Route .COMPLEX 12/06/19 05/26/24 05/25/24 duloxetine 30 mg capsule,delayed 30 mg PO DAILY 03/11/21 05/26/24 05/25/24 release acetaminophen 500 mg tablet 1,000 mg PO Q6H PRN Pain 04/08/21 05/26/24 05/25/24 (Tylenol Extra Strength) multivitamin 1 tab PO DAILY 04/20/21 05/26/24 05/25/24 atorvastatin 10 mg tablet 10 mg PO HS 05/26/24 05/26/24 05/25/24 cholecalciferol (vitamin D3) 125 125 mcg PO DAILY 05/26/24 05/26/24 05/25/24 mcg (5,000 unit) tablet (Vitamin D3) losartan 50 mg tablet 50 mg PO BID 05/26/24 05/26/24 05/25/24 metoprolol tartrate 25 mg tablet 75 mg PO BID 05/26/24 05/26/24 05/25/24 Active Medications Generic Name Dose Route Start Last Admin Trade Name Freq PRN Reason Stop Dose Admin Atorvastatin Calcium 10 mg 05/26/24 21:00 05/27/24 19:55 Atorvastatin 10 Mg Tab PO 06/25/24 20:59 10 mg HS VIRGEN Administration Clopidogrel Bisulfate 75 mg 05/27/24 09:00 05/28/24 08:12 Clopidogrel Bisulfate 75 Mg Tab PO 06/26/24 08:59 75 mg QAM VIRGEN Administration Cyclobenzaprine HCl 10 mg 05/26/24 14:49 07/25/24 22:05 Cyclobenzaprine Hcl 10 Mg Tab PO 06/25/24 14:48 10 mg TID PRN Administration Muscle Spasm Duloxetine HCl 30 mg 05/27/24 09:00 05/28/24 08:12 Duloxetine Hcl 30 Mg Cap PO 06/26/24 08:59 30 mg DAILY VIRGEN Administration Duloxetine HCl 60 mg 05/27/24 09:00 05/28/24 08:12 Duloxetine Hcl 60 Mg Cap PO 06/26/24 08:59 60 mg DAILY VIRGEN Administration Hydromorphone HCl 0.5 mg 05/26/24 12:13 05/28/24 07:21 Hydromorphone Inj 0.5 Mg/0.5 Ml Syr IV 06/09/24 12:12 0.5 mg Q6H PRN Administration Severe Pain (Scale 7, 8, 9,10) Piperacillin Sod/Tazobactam 100 mls @ 25 mls/hr 05/26/24 17:00 05/28/24 08:12 Sod 4.5 gm/ Dextrose IV 05/28/24 16:59 25 mls/hr Q8H VIRGEN Administration Protocol Pantoprazole Sodium 40 mg/ 10 mls @ 5 mls/min 05/26/24 21:00 05/28/24 08:13 Syringe IV 06/25/24 20:59 5 mls/min BID VIRGEN Administration Acetaminophen 1,000 mg in 100 mls @ 400 mls/hr 05/28/24 00:00 05/28/24 07:40 Ofirmev IV 05/31/24 00:00 Infused Q8H VIRGEN Infusion Vancomycin HCl 1,250 mg/ 275 mls @ 200 mls/hr 05/27/24 19:00 05/28/24 04:05 Sodium Chloride IV 06/10/24 18:59 Infused Q8H VIRGEN Infusion Lidocaine 1 patch 05/27/24 17:30 05/28/24 08:12 Lidocaine 5% 1 Patch TD 06/26/24 17:29 1 patch QAM VIRGEN Administration Losartan Potassium 50 mg 05/26/24 21:00 05/28/24 08:13 Losartan Potassium 50 Mg Tab PO 06/25/24 20:59 50 mg BID VIRGEN Administration Metoprolol Tartrate 75 mg 05/26/24 21:00 05/28/24 08:12 Metoprolol Tartrate 25 Mg Tab PO 06/25/24 20:59 75 mg BID VIRGEN Administration Miscellaneous 1 each 05/27/24 21:00 05/27/24 19:56 Remove Lidoderm Patch N/A 06/26/24 20:59 Not Given DAILY@2100 [facility] Multivitamins 1 tab 05/27/24 09:00 05/28/24 08:12 Multivitamin Tab PO 06/26/24 08:59 1 tab DAILY VIRGEN Administration Oxycodone HCl 7.5 mg 05/27/24 17:19 05/28/24 02:52 Oxycodone Hcl Ir 5 Mg Tab (Immediate Release) PO 06/09/24 14:48 7.5 mg Q6H PRN Administration Moderate Pain (Scale 4, 5, 6) Vitamin D 125 mcg 05/27/24 09:00 05/28/24 08:12 Cholecalciferol 125 Mcg (5,000 Units) Tab PO 06/26/24 08:59 125 mcg DAILY VIRGEN Administration Warfarin Sodium 15 mg 05/26/24 16:00 05/27/24 16:22 Warfarin Sod 5 Mg Tab PO 06/25/24 15:59 15 mg [id number]@1600 VIRGEN Administration Past Medical History Medical History (Updated 05/28/24 @ 09:36 by Wagner Okeefe DO) History of aortic dissection Atypical chest pain Gastroenteritis Generalized weakness Flu-like symptoms Acute chest pain LBBB (left bundle branch block) Congenital bicuspid aortic valve Chest pain Past Family History Family History Mother Alive and well Father Alive and well Grandfather (Maternal) Coronary heart disease T2DM (type 2 diabetes mellitus) Grandmother (Maternal) T2DM (type 2 diabetes mellitus) Coronary heart disease Other No family history of kidney disease Past Surgical History Surgical History H/O mechanical aortic valve replacement Social History Smoking Status: Former smoker tobacco type: cigarettes Smoking cigarettes per day: 1 Do You Dip or Chew Tobacco: No Smoking End Date: 9 years ago Hx Alcohol Use: No Alcohol type: beer alcohol intake frequency: holidays/special occasions only Hx Substance Use: No substance use type: does not use Physical Exam Vital Signs Last Vital Signs Temp 97.3 F L 05/28/24 07:48 Pulse 64 05/28/24 07:48 Resp 17 05/28/24 07:48 BP 98/65 L 05/28/24 07:48 Pulse Ox 93 05/28/24 07:48 O2 Del Method Room Air 05/28/24 07:48 Testing Laboratory Results 05/28/24 05:56 05/28/24 05:56 PT 29.4 Seconds (9.0-12.0) H 05/28/24 05:56 INR 3.0 (0.9-1.1) H 05/28/24 05:56 APTT 37 Seconds (21-31) H 05/26/24 08:50 Urine Color Yellow 05/26/24 Unknown Urine Appearance Turbid (Clear) A 05/26/24 Unknown Urine pH 7.5 (4.5-7.5) 05/26/24 Unknown Ur Specific Dexter 1.022 (1.000-1.030) 05/26/24 Unknown Urine Protein 1+ (Negative) H 05/26/24 Unknown Urine Glucose (UA) Negative (Negative) 05/26/24 Unknown Urine Ketones 1+ (Negative) H 05/26/24 Unknown Urine Nitrite Negative (Negative) 05/26/24 Unknown Ur Leukocyte Esterase 2+ (Negative) H 05/26/24 Unknown Urine WBC (Auto) 21-50 /hpf (0-5) H 05/26/24 Unknown Urine RBC (Auto) 6-10 /hpf (0-2) H 05/26/24 Unknown U Hyaline Cast (Auto) 0-2 /lpf (0-2) 05/26/24 Unknown U Epithel Cells (Auto) 0-2 /hpf (0-2) 05/26/24 Unknown Urine Bacteria (Auto) 4+ (None Seen) H 05/26/24 Unknown 05/26/24 12:05 Aerobic Blood Culture - Preliminary Blood Gram positive cocci Anaerobic Blood Culture - Preliminary Alpha strep. not enterococcus 05/26/24 12:10 Aerobic Blood Culture - Preliminary Blood Gram positive cocci Anaerobic Blood Culture - Preliminary Alpha strep. not enterococcus 05/26/24 Unknown Urine Culture - Preliminary Urine,Clean Catch Klebsiella pneumoniae Electrocardiogram Date: 05/26/24 Findings: + NSR @ and + LBBB Echocardiogram Date: 05/28/24 EF: 55-60 LV Function: normal bi leaflet aortic mechnical prosthesis, no evidence of endocarditis.
[2024-05-28] MEDS: BENZOCAINE/TETRACAIN/BUTAM 50 APPLN/5 GM CAN EXT ONE (10:07)
--- NOTE | 2024-05-28 10:08 | Infectious Disease Consult ---
Date of Service May 28, 2024 Telehealth Information I performed this visit using a real-time telehealth connection between my location and the patients location ([facility]). After connecting through interactive tele-video, patient was identified by name and date of and/or wristband check.Patient (or authorized healthcare financial service representative) was informed that this was a telemedicine visit and it was being conducted confidentially over secure lines. My office door was closed and no one else was present in the room with me.Patient (or authorized healthcare financial service representative) provided consent to proceed with the visit, expressed an understanding of privacy and security of the telemedicine visit, and gave permission to have a hospital financial service representative in the room in order to assist with the visit and to conduct portions of the visit, as needed. I informed the patient (or authorized healthcare financial service representative) that I reviewed their record and presented the opportunity for them to ask any questions regarding the visit today. The patient agreed to participate. 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 At [facility], infectious work-up showed Strep in blood and Kleb in urine culture. CT and MRI imaging negative. TTE negative for endocarditis. Plan: - Recommend switching Vancomycin to Unasyn 3g q6 IV for now. - Recommend waiting for ID and susceptibility for bacteremia. Anticipate 2 weeks of IV antibiotics from first negative blood culture. - we will not continue to monitor, for additional recommendations can be given by contacting ID physician via tiger text or call. Thank you for your consult. History of Present Illness History of Present Illness Reason for Consult: bacteremia Patient is 38-year-old male with PMH type I aortic dissection 07/2014 secondary to marked aortopathy s/p emergent aortic valve and root replacement with mechanical valve, with post discharge complication of cardiac tamponade requiring thoracotomy, pericardial window 07/29/2014, chronic diastolic heart failure, LBBB, HTN, dyslipidemia, obesity s/p gastric bypass, anxiety, depression, history DDD who presented to [facility] on 05/26/2024 with c/o back pain and weakness. Per notes and chart review, pt missed a step and fell backwards onto buttocks and back approximately 5 feet. Initially was walking and ambulating ok. Noted bruising to right buttock which is slowing resolving. C/O having right lower back pain. Past 3 days with increased pain with reported spasms across his back. He states pain radiates up back and down right hip and leg and describes as stabbing type pain. Pt took Tylenol without much relief. Pt started feeling bilateral leg weakness and generalized weakness for 3 days prior to admission with associated chills, sweats. This prompted visit to ED. At [facility], infectious work-up showed Strep in blood and Kleb in urine culture. CT and MRI imaging negative. TTE negative for endocarditis. ID consulted for evaluation and management. Allergies Allergy/AdvReac Type Severity Reaction Status Date / Time No Known Allergies Allergy Verified 05/26/24 09:34 Home Medications Medication Instructions Recorded Confirmed Type clopidogrel 75 mg tablet 75 mg PO QAM 11/12/18 05/26/24 History duloxetine 60 mg capsule,delayed 60 mg PO DAILY 11/12/18 05/26/24 History release warfarin 5 mg tablet See Rx Instructions .Route .COMPLEX 12/06/19 05/26/24 History duloxetine 30 mg capsule,delayed 30 mg PO DAILY 03/11/21 05/26/24 History release acetaminophen 500 mg tablet 1,000 mg PO Q6H PRN Pain 04/08/21 05/26/24 History (Tylenol Extra Strength) multivitamin 1 tab PO DAILY 04/20/21 05/26/24 History atorvastatin 10 mg tablet 10 mg PO HS 05/26/24 05/26/24 History cholecalciferol (vitamin D3) 125 125 mcg PO DAILY 05/26/24 05/26/24 History mcg (5,000 unit) tablet (Vitamin D3) losartan 50 mg tablet 50 mg PO BID 05/26/24 05/26/24 History metoprolol tartrate 25 mg tablet 75 mg PO BID 05/26/24 05/26/24 History Patient History Medical History (Updated 05/28/24 @ 12:14 by Lloyd Burrell DO) History of aortic dissection Atypical chest pain Gastroenteritis Generalized weakness Flu-like symptoms Acute chest pain LBBB (left bundle branch block) Congenital bicuspid aortic valve Chest pain Surgical History H/O mechanical aortic valve replacement Family History Mother Alive and well Father Alive and well Grandfather (Maternal) Coronary heart disease T2DM (type 2 diabetes mellitus) Grandmother (Maternal) T2DM (type 2 diabetes mellitus) Coronary heart disease Other No family history of kidney disease Social History Smoking Status: Former smoker Cigarettes Per Day: 1; Smoking End Date: 9 years ago; Second Hand Exposure: No; Do You Dip or Chew Tobacco: No; Tobacco Cessation Education Requested by Patient: No Hx Alcohol Use: No Hx Substance Use: No Preferred Language: Azerbaijani Communication Ability: Effective Silk Spooler Required: No Beliefs That Will Affect Care: None marital status: Single Current Living Situation: Other Current Living Situation Comment: father lives with patient Other Information That Helps Us Care for You: No Feels Safe at Home: Yes Safety Concerns: Feels Safe At This Time Assistive Devices: Cane and Walker Physical Exam NA Results & Data Vital Signs (Past 12 Hours) Vital Signs Temp Pulse Pulse Pulse Resp BP Pulse Ox 05/28/24 09:53 59 L 16 134/73 16 L 05/28/24 07:48 36.3 C L 64 17 98/65 L 93 05/28/24 06:56 71 05/27/24 23:05 36.6 C 63 21 129/75 98 05/27/24 22:28 61 O2 Del Method 05/28/24 09:53 Room Air 05/28/24 07:48 Room Air 05/28/24 06:56 05/27/24 23:05 Room Air 05/27/24 22:28 Laboratory Results 05/26/24 Unknown Urine Culture - Final Urine,Clean Catch Klebsiella pneumoniae 05/28/24 08:02 Aerobic Blood Culture - Pending Blood Anaerobic Blood Culture - Pending 05/28/24 08:17 Aerobic Blood Culture - Pending Blood Anaerobic Blood Culture - Pending 05/26/24 12:05 Aerobic Blood Culture - Preliminary Blood Gram positive cocci Anaerobic Blood Culture - Preliminary Alpha strep. not enterococcus 05/26/24 12:10 Aerobic Blood Culture - Preliminary Blood Gram positive cocci Anaerobic Blood Culture - Preliminary Alpha strep. not enterococcus 05/28/24 05/28/24 08:02 05:56 WBC 5.38 RBC 3.82 L Hgb 9.1 L Hct 29.9 L MCV 78.3 L MCH 23.8 L MCHC 30.4 L RDW Std Deviation 45.9 RDW Coeff of Levon 16.2 H Plt Count 285 MPV 9.7 Immature Gran % (Auto) 0.4 Neut % (Auto) 66.8 Lymph % (Auto) 22.7 Tift % (Auto) 8.4 Eos % (Auto) 1.3 Baso % (Auto) 0.4 Neut # (Auto) 3.60 Lymph # (Auto) 1.22 Tift # (Auto) 0.45 Eos # (Auto) 0.07 Baso # (Auto) 0.02 Immature Gran # (Auto) 0.02 PT 29.4 H INR 3.0 H Sodium 137 Potassium 4.3 Chloride 103 Carbon Dioxide 31 Anion Gap 3 BUN 8 Creatinine 0.78 Est Cr Clr Drug Dosing 177.2 Est GFR ( Amer) 133.7 Est GFR (Non-Af Amer) 115.3 BUN/Creatinine Ratio 10.3 Glucose 91 Calcium 8.7 Ionized Calcium 1.20 Phosphorus 4.7 Magnesium 1.9 Total Bilirubin 0.5 AST 14 ALT 8 Alkaline Phosphatase 78 Total Protein 6.9 Albumin 2.6 L Globulin 4.3 H Albumin/Globulin Ratio 0.6 L 25-OH Vitamin D Total 43.5 PTH Intact 11.6 L Random Vancomycin 15.3 Urine culture on 05/26/2024 Urine Culture Final 05/28/24-0939 Organism 1 Klebsiella pneumoniae [place] Count >100,000 CFU/ml Sens Sensitivities to Follow Kleb pneum RX M.I.C. --- --------- Amox/Clav S <=8/4 Amp/Sul S <=8/4 Cefazolin S <=2 Cefepime S <=2 Ceftriaxone S <=1 Ciprofloxacin S <=0.25 Ertapenem S <=0.5 Gentamicin S <=4 Levofloxacin S <=0.5 Meropenem S <=1 Nitrofurantoin I 64 Tobramycin S <=4 Trimeth/Sulfa S <=2/38 Pip/Tazo S <=16 S = SENSITIVE I = INTERMEDIATE R = RESISTANT Diagnostic Findings CT Head: No acute intracranial hemorrhage, no evidence of acute territorial infarction or other acute intracranial disease process. CT C-Spine: No acute fracture CT Chest & Thoracic spine: No acute posttraumatic intrathoracic abnormality.No acute fracture or pneumothorax identified. Again seen is a Type A thoracic aortic dissection with postsurgical change as above. The postoperative appearance is likely unchanged from the 09/08/[address] lumbar spine: No evidence of acute abnormality and in particular no evidence of acute fracture. CT abd/pelvis:No evidence of acute abnormality and in particular no evidence of acute fracture. Chronic aortic dissection is unchanged. Status post cholecystomy. CT hip:No fracture or dislocation within the right hip. MRI Spine noting "Degenerative changes as above, most pronounced at L4-L5 and L5-S1. Edema and enhancement involving the L4-L5 facets on the right, likely degenerative/reactive." TTE on 05/28/2024 negative for endocarditis Medications Administered Home Medications Medication Instructions Recorded Confirmed Last Taken clopidogrel 75 mg tablet 75 mg PO QAM 11/12/18 05/26/24 05/25/24 duloxetine 60 mg capsule,delayed 60 mg PO DAILY 11/12/18 05/26/24 05/25/24 release warfarin 5 mg tablet See Rx Instructions .Route .COMPLEX 12/06/19 05/26/24 05/25/24 duloxetine 30 mg capsule,delayed 30 mg PO DAILY 03/11/21 05/26/24 05/25/24 release acetaminophen 500 mg tablet 1,000 mg PO Q6H PRN Pain 04/08/21 05/26/24 05/25/24 (Tylenol Extra Strength) multivitamin 1 tab PO DAILY 04/20/21 05/26/24 05/25/24 atorvastatin 10 mg tablet 10 mg PO HS 05/26/24 05/26/24 05/25/24 cholecalciferol (vitamin D3) 125 125 mcg PO DAILY 05/26/24 05/26/24 05/25/24 mcg (5,000 unit) tablet (Vitamin D3) losartan 50 mg tablet 50 mg PO BID 05/26/24 05/26/24 05/25/24 metoprolol tartrate 25 mg tablet 75 mg PO BID 05/26/24 05/26/24 05/25/24 Active Medications Generic Name Dose Route Start Last Admin Trade Name Freq PRN Reason Stop Dose Admin Atorvastatin Calcium 10 mg 05/26/24 21:00 05/27/24 19:55 Atorvastatin 10 Mg Tab PO 06/25/24 20:59 10 mg HS VIRGEN Administration Clopidogrel Bisulfate 75 mg 05/27/24 09:00 05/28/24 08:12 Clopidogrel Bisulfate 75 Mg Tab PO 06/26/24 08:59 75 mg QAM VIRGEN Administration Cyclobenzaprine HCl 10 mg 05/26/24 14:49 05/27/24 22:05 Cyclobenzaprine Hcl 10 Mg Tab PO 06/25/24 14:48 10 mg TID PRN Administration Muscle Spasm Duloxetine HCl 30 mg 05/27/24 09:00 05/28/24 08:12 Duloxetine Hcl 30 Mg Cap PO 06/26/24 08:59 30 mg DAILY VIRGEN Administration Duloxetine HCl 60 mg 05/27/24 09:00 05/28/24 08:12 Duloxetine Hcl 60 Mg Cap PO 06/26/24 08:59 60 mg DAILY VIRGEN Administration Hydromorphone HCl 0.5 mg 05/26/24 12:13 05/28/24 07:21 Hydromorphone Inj 0.5 Mg/0.5 Ml Syr IV 06/09/24 12:12 0.5 mg Q6H PRN Administration Severe Pain (Scale 7, 8, 9,10) Piperacillin Sod/Tazobactam 100 mls @ 25 mls/hr 05/26/24 17:00 05/28/24 08:12 Sod 4.5 gm/ Dextrose IV 05/28/24 16:59 25 mls/hr Q8H VIRGEN Administration Protocol Pantoprazole Sodium 40 mg/ 10 mls @ 5 mls/min 05/26/24 21:00 05/28/24 08:13 Syringe IV 06/25/24 20:59 5 mls/min BID VIRGEN Administration Acetaminophen 1,000 mg in 100 mls @ 400 mls/hr 05/28/24 00:00 05/28/24 07:40 Ofirmev IV 05/31/24 00:00 Infused Q8H VIRGEN Infusion Vancomycin HCl 1,250 mg/ 275 mls @ 200 mls/hr 05/27/24 19:00 05/28/24 04:05 Sodium Chloride IV 06/10/24 18:59 Infused Q8H VIRGEN Infusion Lidocaine 1 patch 05/27/24 17:30 05/28/24 08:12 Lidocaine 5% 1 Patch TD 06/26/24 17:29 1 patch QAM VIRGEN Administration Losartan Potassium 50 mg 05/26/24 21:00 05/28/24 08:13 Losartan Potassium 50 Mg Tab PO 06/25/24 20:59 50 mg BID VIRGEN Administration Metoprolol Tartrate 75 mg 05/26/24 21:00 05/28/24 08:12 Metoprolol Tartrate 25 Mg Tab PO 06/25/24 20:59 75 mg BID VIRGEN Administration Miscellaneous 1 each 05/27/24 21:00 05/27/24 19:56 Remove Lidoderm Patch N/A 06/26/24 20:59 Not Given DAILY@2100 [facility] Multivitamins 1 tab 05/27/24 09:00 05/28/24 08:12 Multivitamin Tab PO 06/26/24 08:59 1 tab DAILY VIRGEN Administration Oxycodone HCl 7.5 mg 05/27/24 17:19 05/28/24 02:52 Oxycodone Hcl Ir 5 Mg Tab (Immediate Release) PO 06/09/24 14:48 7.5 mg Q6H PRN Administration Moderate Pain (Scale 4, 5, 6) Vitamin D 125 mcg 05/27/24 09:00 05/28/24 08:12 Cholecalciferol 125 Mcg (5,000 Units) Tab PO 06/26/24 08:59 125 mcg DAILY VIRGEN Administration Warfarin Sodium 15 mg 05/26/24 16:00 05/27/24 16:22 Warfarin Sod 5 Mg Tab PO 06/25/24 15:59 15 mg [id number]@1600 VIRGEN Administration
--- NOTE | 2024-05-28 10:50 | Anesthesiology Progress Note ---
Date of Service May 28, 2024 Anesthesia Post Procedure Vital Signs Vital Signs: Temp Pulse Pulse Pulse Resp BP Pulse Ox 05/28/24 09:53 59 L 16 134/73 16 L 05/28/24 07:48 97.3 F L 64 17 98/65 L 93 05/28/24 06:56 71 05/27/24 23:05 97.9 F 63 21 129/75 98 05/27/24 22:28 61 05/27/24 19:20 97.7 F 57 L 16 129/70 97 05/27/24 15:42 97.7 F 62 18 143/80 H 94 05/27/24 10:52 98.1 F 57 L 18 123/68 96 O2 Del Method 05/28/24 09:53 Room Air 05/28/24 07:48 Room Air 05/28/24 06:56 05/27/24 23:05 Room Air 05/27/24 22:28 05/27/24 19:20 Room Air 05/27/24 15:42 Room Air 05/27/24 10:52 Room Air Pain Intensity Right Hip: Pain Intensity: 7 Transfer of Care Handoff Completed per policy Notes Mental Status: alert / awake / arousable and participated in evaluation Patient Amnestic to Procedure: Yes Nausea / Vomiting: adequately controlled Pain: adequately controlled Airway Patency, RR, SpO2: stable & adequate BP & HR: stable & adequate Hydration State: stable & adequate Anesthetic Complications: no major complications apparent and Pt Satisfied with anesthetic care
[2024-05-28] MEDS ORDERED: PHENYLEPHRINE 100MCG/ML 10ML SYR IV ONE (10:55)
--- NOTE | 2024-05-28 12:17 | Cardiology Consultation ---
Date of Consultation May 28, 2024 Assessment & Plan (1) Bacteremia: (2) H/O mechanical aortic valve replacement: (3) Complicated UTI (urinary tract infection): (4) Chronic heart failure with preserved ejection fraction: (5) History of aortic dissection: (6) Anemia: (7) Poor dentition: Plan 38-year-old male admitted with back pain, sepsis, gram-positive bacteremia, and complicated UTI. Continue broad-spectrum antibiotics per direction of infectious disease specialist and internal medicine. Repeat blood cultures ordered. Risk, benefits, and alternatives to transesophageal echocardiogram discussed. Patient agreeable to proceed. Continue oral anticoagulation with warfarin and antiplatelet therapy with clopidogrel at this time. Further recommendations pending result of transesophageal echocardiogram. Addendum: Transesophageal echocardiogram demonstrates normal mechanical prosthetic aortic valve function. No evidence of vegetation. Continue medications as noted above. Follow blood culture and sensitivity. Narrow spectrum of antibiotic therapy per direction of infectious disease. Cardiology will continue to follow during hospitalization. I spent a total of 85 minutes on the date of service in preparation, delivery, and documentation of the care provided to this patient, excluding any time spent in the performance of separately billed services. History of Present Illness Reason for Consultation: Bacteremia, mechanical valve Requesting Physician: Dr. 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 Presented to the ER complaining of severe back pain, weakness, fever, and chills. Reports suffering a mechanical fall approximately 1.5 weeks ago. Fell backwards onto his back and buttocks approximately 5 feet. Notes progressive back pain over the past 3 days with spasms. Due to ongoing fever and chills blood cultures were drawn with evidence of gram- positive cocci. His urine culture is positive for Klebsiella. Due to history of mechanical AVR and bacteremia cardiology consultation was requested. Patient currently denies chest pain or shortness of breath. Notes chills and intermittent diaphoresis. Reports poor dentition. States "I need several teeth pulled". Has been avoiding dental care due to issues with anxiety. Denies orthopnea, or PND. Reports intermittent pedal and ankle edema. Denies signs/symptoms of GI/ blood loss. Chronically anticoagulated due to mechanical aortic valve replacement. INR therapeutic, 3.0 on admission. 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 Denies any focal weakness, slurred speech, visual changes, or paresthesias. Continues to complain of severe back pain particularly with movement. Orthopedic surgery and pain management consulted. Allergies Allergy/AdvReac Type Severity Reaction Status Date / Time No Known Allergies Allergy Verified 05/26/24 09:34 Home Medications Medication Instructions Recorded Confirmed Type clopidogrel 75 mg tablet 75 mg PO QAM 11/12/18 05/26/24 History duloxetine 60 mg capsule,delayed 60 mg PO DAILY 11/12/18 05/26/24 History release warfarin 5 mg tablet See Rx Instructions .Route .COMPLEX 12/06/19 05/26/24 History duloxetine 30 mg capsule,delayed 30 mg PO DAILY 03/11/21 05/26/24 History release acetaminophen 500 mg tablet 1,000 mg PO Q6H PRN Pain 04/08/21 05/26/24 History (Tylenol Extra Strength) multivitamin 1 tab PO DAILY 04/20/21 05/26/24 History atorvastatin 10 mg tablet 10 mg PO HS 05/26/24 05/26/24 History cholecalciferol (vitamin D3) 125 125 mcg PO DAILY 05/26/24 05/26/24 History mcg (5,000 unit) tablet (Vitamin D3) losartan 50 mg tablet 50 mg PO BID 05/26/24 05/26/24 History metoprolol tartrate 25 mg tablet 75 mg PO BID 05/26/24 05/26/24 History Patient History Medical History (Updated 05/28/24 @ 12:14 by Lloyd Burrell DO) History of aortic dissection Atypical chest pain Gastroenteritis Generalized weakness Flu-like symptoms Acute chest pain LBBB (left bundle branch block) Congenital bicuspid aortic valve Chest pain Surgical History H/O mechanical aortic valve replacement Family History Mother Alive and well Father Alive and well Grandfather (Maternal) Coronary heart disease T2DM (type 2 diabetes mellitus) Grandmother (Maternal) T2DM (type 2 diabetes mellitus) Coronary heart disease Other No family history of kidney disease Social History Smoking Status: Former smoker Cigarettes Per Day: 1; Smoking End Date: 9 years ago; Second Hand Exposure: No; Do You Dip or Chew Tobacco: No; Tobacco Cessation Education Requested by Patient: No Hx Alcohol Use: No Hx Substance Use: No Preferred Language: Bulgarian Communication Ability: Effective Carpet Tile Layer Required: No Beliefs That Will Affect Care: None marital status: Single Current Living Situation: Other Current Living Situation Comment: father lives with patient Other Information That Helps Us Care for You: No Feels Safe at Home: Yes Safety Concerns: Feels Safe At This Time Assistive Devices: Cane and Walker Review of Systems Review of Systems: All systems reviewed & are unremarkable except as noted in Subjective Physical Exam Constitutional: well nourished and + ill appearing; no acute distress Respiratory: no respiratory distress, no labored breathing and no retractions Auscultation: lungs clear to auscultation bilaterally; no crackles, no rales, no rhonchi and no wheezes Cardiovascular: Rate/Rhythm: regular rate and regular rhythm Heart Sounds: normal S1, normal S2, + click and + murmur (2/6 SILVIA) Vessels: no JVD and no carotid bruit Extremities: no edema Gastrointestinal (Abdomen): Inspection/Auscultation: abdomen normal to inspection and normal bowel sounds; abdomen not distended Percussion/Palpation: abdomen soft; abdomen nontender, no guarding and abdomen not rigid Neurologic: CN's II-XI intact bilaterally and moves all extremities; no focal motor deficits Results & Data Vital Signs (Past 12 Hours) Vital Signs Temp Pulse Pulse Pulse Resp BP Pulse Ox 05/28/24 11:36 36.4 C L 62 19 119/72 96 05/28/24 11:00 69 16 91/61 L 95 05/28/24 10:45 73 16 82/63 L 95 05/28/24 09:53 59 L 16 134/73 16 L 05/28/24 07:48 36.3 C L 64 17 98/65 L 93 05/28/24 06:56 71 O2 Del Method 05/28/24 11:36 Room Air 05/28/24 11:00 Room Air 05/28/24 10:45 Room Air 05/28/24 09:53 Room Air 05/28/24 07:48 Room Air 05/28/24 06:56 Laboratory Results Cardiac Enzymes 05/28/24 Range/Units 05:56 AST 14 (13-39) U/L Coagulation 05/28/24 Range/Units 05:56 PT 29.4 H (9.0-12.0) Seconds CBC 05/28/24 Range/Units 05:56 WBC 5.38 (4.8-10.8) K/ul RBC 3.82 L (4.70-6.10) M/uL Hgb 9.1 L (14.0-18.0) g/dl Hct 29.9 L (42.0-52.0) % Plt Count 285 (130-400) K/uL Neut # (Auto) 3.60 (1.40-6.50) K/uL Lymph # (Auto) 1.22 (1.20-3.40) K/uL [place]o # (Auto) 0.45 (0.11-0.59) K/uL Eos # (Auto) 0.07 (0.00-0.50) K/uL Baso # (Auto) 0.02 (0.00-0.20) K/uL Comprehensive Metabolic Panel 05/28/24 Range/Units 05:56 Sodium 137 (136-145) mmol/L Potassium 4.3 (3.5-5.1) mmol/L Chloride 103 (98-107) mmol/L Carbon Dioxide 31 (21-32) mmol/L BUN 8 (6-23) mg/dl Creatinine 0.78 (0.6-1.4) mg/dl Glucose 91 (70-99(Fasting)) mg/dl Calcium 8.7 (8.6-10.3) mg/dl AST 14 (13-39) U/L ALT 8 (7-52) U/L Alkaline Phosphatase 78 (34-104) U/L Total Protein 6.9 (6.0-8.3) gm/dl Albumin 2.6 L (3.4-5.0) gm/dl Intake and Output 05/27/24 05/28/24 05/28/24 22:59 06:59 14:59 Intake Total 605 / 1480 475 / 1480 500 / 500 Output Total 300 / 1950 950 / 1950 Balance 305 / -470 -475 / -470 500 / 500 Intake: IV 605 / 1180 475 / 1180 100 / 100 Acetaminophen 1,000 mg In 100 100 / 100 100 / 100 ml @ 400 mls/hr IV Q8H [facility] Rx#: [id number] Calcium Gluconate 1,000 mg In 120 / 120 60 ml @ 240 mls/hr IV Q15M [facility] Rx#:[id number] Iron Sucrose 200 mg In 0.9 % 110 / 110 Sodium Chloride 100 ml @ 220 mls/hr IV TODAY@1730 ONE Rx#: [id number] Piperacillin/Tazobactam 4.5 gm 100 / 300 100 / 300 In Dextrose 5% Mini-B 100 ml @ 25 mls/hr IV Q8H [facility] Rx#: [id number] Vancomycin HCl 1,250 mg In 275 / 550 275 / 550 Sodium Chloride 0.9% 250 ml @ 200 mls/hr IV Q8H [facility] Rx#: [id number] Other 400 / 400 Output: Urine 300 / 1950 950 / 1950 Other: Other Intake Source IVF administered during [facility] Weight 125.2 kg 125.2 kg Weight Measurement Method Built in [facility] Patient Weight 05/29/24 06:59 Weight 125.2 kg (6) Anemia Anemia type: unspecified type Qualified Code(s): D64.9 - Anemia, unspecified
[2024-05-28] MEDS: methylPREDNISolone 4 MG TAB PO SCH ×2 (12:43→19:57)
--- NOTE | 2024-05-28 13:30 | Hospitalist Progress Note ---
Date of Service May 28, 2024 Assessment & Plan (1) Fall: (2) Bacteremia: (3) Complicated UTI (urinary tract infection): (4) Ambulatory dysfunction: Plan Patient is 38-year-old male with PMH type I aortic dissection 07/2014 secondary to marked aortopathy s/p emergent aortic valve and root replacement with mechanical valve, with post discharge complication of cardiac tamponade requiring thoracotomy, pericardial window 07/29/2014, chronic diastolic heart failure, LBBB, HTN, dyslipidemia, obesity s/p gastric bypass, anxiety, depression, history DDD and others listed below presented to ER with c/o back pain after mechanical fall 1.5 weeks ago and weakness x 3 days with chills, sweats. Bacteremia Complicated UTI Pt presenting with chills and sweats, weakness after fall at home UA suggestive of infection urine culture grew Klebsiella Blood Cx x 2 sets (02/04) 05/26: currently growing gram positive cocci Repeat Blood Cx 2 sets 05/28 currently pending Was initially on IV Zosyn and Vancomycin uncertain source of gram positives, likely dental Infectious Disease consulted for further recs, appreciate recs. recommended/stated the following: "-Recommend switching Vancomycin to Unasyn 3g q6 IV for now. - Recommend waiting for ID and susceptibility for bacteremia. Anticipate 2 weeks of IV antibiotics from first negative blood culture." Confirmed with ID, pt switched to IV Unasyn only Cardiology consulted in setting of bacteremia and Hx of mech valve -TTE without endocarditis -RAHEL on 05/28 without endocarditis as well Continue to monitor Back pain Fall Degenerative Disc Disease CT Head: No acute intracranial hemorrhage, no evidence of acute territorial infarction or other acute intracranial disease process. CT C-Spine: No acute fracture CT Chest & Thoracic spine: No acute posttraumatic intrathoracic abnormality.No acute fracture or pneumothorax identified. Again seen is a Type A thoracic aortic dissection with postsurgical change as above. The postoperative appearance is likely unchanged from the 09/08/[address] lumbar spine: No evidence of acute abnormality and in particular no evidence of acute fracture. CT abd/pelvis:No evidence of acute abnormality and in particular no evidence of acute fracture. Chronic aortic dissection is unchanged. Status post cholecystomy. CT hip:No fracture or dislocation within the right hip. MRI Spine noting "Degenerative changes as above, most pronounced at L4-L5 and L5-S1. Edema and enhancement involving the L4-L5 facets on the right, likely degenerative/reactive." In ER given Flexeril and IV Tylenol with reported some improvement of back pain Scheduled IV Tylenol, oxycodone, Dilaudid, lidocaine patch as needed for pain Flexeril as needed for muscle spasm Ortho spine consulted appreciate recs Pain Management consulted, appreciate recs -started on steroids Continue IV ppi with steroids Iron deficiency Anemia Denies CP, SOB, melena, hematochezia Hgb: 8.8. Baseline Hgb: 12 Obtain Hemoccult stool Anemia labs noting iron deficiency anemia On warfarin chronically Protonix twice daily Avoid NSAIDs May need to consider GI consult if positive Hemoccult s/p IV Venofer 200mg on 05/27, 1 bag Monitor H&H Hypocalcemia Ionized yaquelin decreased AM PTH, Vit D supplement as needed History of aortic dissection: S/P AVR (aortic valve replacement) Mechanical aortic valve Chronic thoracic aortic dissection: Anticoagulated on warfarin: Chronic heart failure with preserved ejection fraction: PMH type I aortic dissection 07/2014 secondary to marked aortopathy s/p emergent aortic valve and root replacement with mechanical valve, with post discharge complication of cardiac tamponade requiring thoracotomy, pericardial window 07/29/2014 Chronic thoracic aortic dissection noted on imaging, stable Chronically anticoagulated on warfarin, follow PT/INR Continue metoprolol, Plavix, Coumadin, atorvastatin Hold torsemide currently as appears on dry side. Reassess volume status Monitor H&H INR in a.m Cardiology consulted as noted above HTN (hypertension): Continue metoprolol, losartan HLD (hyperlipidemia) Continue atorvastatin Anxiety and depression Continue duloxetine History of gastric bypass: Obesity: Stable DVT Prophylaxis: Anticoagulated on warfarin, therapeutic INR currently Conditional Code, Wants CPR, defibrillation, medications but does not want intubation or mechanical ventilation as per discussion with pt Dispo: PT/OT recs once Admission and Anticipated Discharge Date Admission Date: May 26, 2024 Subjective Pt was seen laying in bed. More awake today. States he has "bad teeth". Denies open wounds or Hx of IV drug use. Pain is better controlled. Review of Systems Review of Systems: All systems reviewed & are unremarkable except as noted in Subjective Physical Exam Physical Exam: General: mild distress with movements in the bed Psych: Appropriate mood and affect Neuro: difficulty with movements HEENT: NC/AT CV: RRR, mechanical murmur Resp: breath sounds decreased, no increased effort of breathing Abdomen: tender Extremities: edema in lower extremities Results & Data Results & Data Vital Signs (Past 12 Hours) Vital Signs Temp Pulse Pulse Pulse Resp BP Pulse Ox 05/28/24 11:36 36.4 C L 62 19 119/72 96 05/28/24 11:00 69 16 91/61 L 95 05/28/24 10:45 73 16 82/63 L 95 05/28/24 09:53 59 L 16 134/73 16 L 05/28/24 07:48 36.3 C L 64 17 98/65 L 93 05/28/24 06:56 71 O2 Del Method 05/28/24 11:36 Room Air 05/28/24 11:00 Room Air 05/28/24 10:45 Room Air 05/28/24 09:53 Room Air 05/28/24 07:48 Room Air 05/28/24 06:56 (1) Fall Encounter type: initial encounter Qualified Code(s): W19.XXXA - Unspecified fall, initial encounter
[2024-05-28] MEDS: WARFARIN SOD 10 MG TAB PO SCH (15:08)
[2024-05-28] MEDS: AMPICILLIN/SULBACTAM SOD 3,000 MG in SODIUM CHLOR 0.9% MINI-B 100 ML IV SCH (18:05)
[2024-05-29] MEDS: methylPREDNISolone 4 MG TAB PO SCH ×2 (06:12→20:13)
[2024-05-29 06:34] LABS: Basophils # (auto) 0.01 K/uL (0.00-0.20); Basophils % (auto) 0.1 %; Eosinophils # (auto) 0.01 K/uL (0.00-0.50); Eosinophils % (auto) 0.1 %; Hematocrit (blood only) 32.5 % (42.0-52.0); Hemoglobin 9.6 g/dl (14.0-18.0); Immature Granulocytes # (auto) 0.03 K/uL (0.01-0.20); Immature Granulocytes % (auto) 0.4 %; Lymphocytes # (auto) 0.97 K/uL (1.20-3.40); Lymphocytes % (auto) 14.3 %; Mean Corpuscular Hemoglobin 23.3 pg (25.0-34.0); Mean Corpuscular Hgb Conc 29.5 g/dL (32.0-36.0); Mean Corpuscular Volume 78.9 fL (80.0-100.0); Mean Platelet Volume 10.2 fL (9.4-12.4); Monocytes % (auto) 4.4 %; Neutrophils # (auto) 5.46 K/uL (1.40-6.50); Neutrophils % (auto) 80.7 %; Platelet Count 406 K/uL (130-400); RDW Coefficient of Variation 15.9 % (11.5-14.5); RDW Standard Deviation 45.3 fL (36.4-46.3); Red Blood Count 4.12 M/uL (4.70-6.10); White Blood Count 6.78 K/ul (4.8-10.8)
[2024-05-29 06:51] LABS: INR 3.7 (0.9-1.1)
[2024-05-29 06:53] LABS: Albumin Globulin Ratio 0.6 (0.9-2); Albumin Level 2.9 gm/dl (3.4-5.0); BUN Creatinine Ratio 17.1 (10-20); Bilirubin,Total 0.4 mg/dl (0.2-1.0); Calcium 9.2 mg/dl (8.6-10.3); Creatinine Clr Calc Pharmacy 195.9 ml/min; Est GFR (African American) 139.7 ml/min; Est GFR (Non-African American) 120.6 ml/min; Magnesium 2.1 mg/dl (1.7-2.4); Potassium 4.7 mmol/L (3.5-5.1); Total Protein 7.9 gm/dl (6.0-8.3)
--- NOTE | 2024-05-29 14:44 | Hospitalist Progress Note ---
Date of Service May 29, 2024 Assessment & Plan (1) Fall: (2) Bacteremia: (3) Complicated UTI (urinary tract infection): (4) Ambulatory dysfunction: Plan Patient is 38-year-old male with PMH type I aortic dissection 07/2014 secondary to marked aortopathy s/p emergent aortic valve and root replacement with mechanical valve, with post discharge complication of cardiac tamponade requiring thoracotomy, pericardial window 07/29/2014, chronic diastolic heart failure, LBBB, HTN, dyslipidemia, obesity s/p gastric bypass, anxiety, depression, history DDD and others listed below presented to ER with c/o back pain after mechanical fall 1.5 weeks ago and weakness x 3 days with chills, sweats. Bacteremia Complicated UTI Pt presenting with chills and sweats, weakness after fall at home UA suggestive of infection urine culture grew Klebsiella Blood Cx x 2 sets (02/04) 05/26: currently growing gram positive cocci Repeat Blood Cx 2 sets 05/28 currently pending Was initially on IV Zosyn and Vancomycin uncertain source of gram positives, likely dental Infectious Disease consulted for further recs, appreciate recs. recommended/stated the following: "-Recommend switching Vancomycin to Unasyn 3g q6 IV for now. - Recommend waiting for ID and susceptibility for bacteremia. Anticipate 2 weeks of IV antibiotics from first negative blood culture." Confirmed with ID, pt switched to IV Unasyn only Cardiology consulted in setting of bacteremia and Hx of mech valve -TTE without endocarditis -RAHEL on 05/28 without endocarditis as well Continue to monitor Back pain Fall Degenerative Disc Disease CT Head: No acute intracranial hemorrhage, no evidence of acute territorial infarction or other acute intracranial disease process. CT C-Spine: No acute fracture CT Chest & Thoracic spine: No acute posttraumatic intrathoracic abnormality.No acute fracture or pneumothorax identified. Again seen is a Type A thoracic aortic dissection with postsurgical change as above. The postoperative appearance is likely unchanged from the 09/08/[address] lumbar spine: No evidence of acute abnormality and in particular no evidence of acute fracture. CT abd/pelvis:No evidence of acute abnormality and in particular no evidence of acute fracture. Chronic aortic dissection is unchanged. Status post cholecystomy. CT hip:No fracture or dislocation within the right hip. MRI Spine noting "Degenerative changes as above, most pronounced at L4-L5 and L5-S1. Edema and enhancement involving the L4-L5 facets on the right, likely degenerative/reactive." In ER given Flexeril and IV Tylenol with reported some improvement of back pain Scheduled IV Tylenol, oxycodone, Dilaudid, lidocaine patch as needed for pain Flexeril as needed for muscle spasm Ortho spine consulted appreciate recs Pain Management consulted, appreciate recs -started on steroids Continue IV ppi with steroids PT/OT ordered Iron deficiency Anemia Denies CP, SOB, melena, hematochezia Hgb: 8.8. Baseline Hgb: 12 Obtain Hemoccult stool Anemia labs noting iron deficiency anemia On warfarin chronically Protonix twice daily Avoid NSAIDs May need to consider GI consult if positive Hemoccult s/p IV Venofer 200mg on 05/27, 1 bag Monitor H&H Hypocalcemia Ionized yaquelin decreased AM PTH, Vit D supplement as needed History of aortic dissection: S/P AVR (aortic valve replacement) Mechanical aortic valve Chronic thoracic aortic dissection: Anticoagulated on warfarin: Chronic heart failure with preserved ejection fraction: PMH type I aortic dissection 07/2014 secondary to marked aortopathy s/p emergent aortic valve and root replacement with mechanical valve, with post discharge complication of cardiac tamponade requiring thoracotomy, pericardial window 07/29/2014 Chronic thoracic aortic dissection noted on imaging, stable Chronically anticoagulated on warfarin, follow PT/INR Continue metoprolol, Plavix, Coumadin, atorvastatin Hold torsemide currently as appears on dry side. Reassess volume status Monitor H&H INR in a.m Cardiology consulted as noted above HTN (hypertension): Continue metoprolol, losartan HLD (hyperlipidemia) Continue atorvastatin Anxiety and depression Continue duloxetine History of gastric bypass: Obesity: Stable DVT Prophylaxis: Anticoagulated on warfarin, therapeutic INR currently Conditional Code, Wants CPR, defibrillation, medications but does not want intubation or mechanical ventilation as per discussion with pt Dispo: PT/OT recs once Admission and Anticipated Discharge Date Admission Date: May 26, 2024 Subjective Pt states he is feeling better Pain improved Review of Systems Review of Systems: All systems reviewed & are unremarkable except as noted in Subjective Physical Exam 2 Physical Exam: General: improved with movements in the bed Psych: Appropriate mood and affect Neuro: improved ability with movements HEENT: NC/AT CV: RRR, mechanical murmur Resp: breath sounds decreased, no increased effort of breathing Abdomen: improved tenderness Extremities: edema in lower extremities Results & Data Results & Data Vital Signs (Past 12 Hours) Vital Signs Temp Pulse Pulse Resp BP Pulse Ox O2 Del Method 05/29/24 11:42 36.4 C L 53 L 18 111/67 95 Room Air 05/29/24 08:00 36.5 C 68 18 155/74 H 97 Room Air 05/29/24 02:49 36.6 C 53 L 16 113/69 94 Room Air (1) Fall Encounter type: initial encounter Qualified Code(s): W19.XXXA - Unspecified fall, initial encounter
--- NOTE | 2024-05-29 15:47 | Cardiology Progress Note ---
Date of Service May 29, 2024 Assessment & Plan (1) Bacteremia: (2) H/O mechanical aortic valve replacement: (3) Complicated UTI (urinary tract infection): (4) Chronic heart failure with preserved ejection fraction: (5) History of aortic dissection: (6) Anemia: (7) Poor dentition: Plan 05/28/[address] Burrell: 38-year-old male admitted with back pain, sepsis, gram-positive bacteremia, and complicated UTI. Continue broad-spectrum antibiotics per direction of infectio us disease specialist and internal medicine. Repeat blood cultures ordered. Risk, benefits, and alternatives to transesophageal echocardiogram discussed. Patient agreeable to proceed. Continue oral anticoagulation with warfarin and antiplatelet therapy with clopidogrel at this time. Addendum: Transesophageal echocardiogram demonstrates normal mechanical prosthetic aortic valve function. No evidence of vegetation. Continue medications as noted above. Follow blood culture and sensitivity. Narrow spectrum of antibiotic therapy per direction of infectious disease. Cardiology will continue to follow during hospitalization. 05/29/24: Patient reports subjectively starting to feel better. ID consulted and antibiotics changed per ID and hospitalist service. Repeat blood cultures x2 on 05/28 - prelim - no growth thus far. Continue current treatment. HR and BP currently acceptable. Continue warfarin and plavix. Case discussed with Dr. Taylor. I spent a total of 25 minutes on the date of service in preparation, delivery, and documentation of the care provided to this patient, excluding any time spent in the performance of separately billed services. Adelaide Brian PA-C Department of Cardiology, [facility] This chart was completed in part utilizing Speech Voice Recognition Software. Grammatical errors, random word insertions, pronoun errors, and incomplete sentences are an occasional consequence of this system due to software limitations, ambient noise, and hardware issues. Any formal questions or concerns about the content, text, or information contained within the body of this dictation should be directly addressed to the provider for clarification. Admission and Anticipated Discharge Date Admission Date: May 26, 2024 Supervising Physician Co-Signing Physician Notes I have reviewed the advanced practitioner's documentation, and I agree with, and take responsibility for the plan of care 38-year-old with known history of type I aortic valve disease dissection underwent emergent aortic root replacement and mechanical valve placement, left bundle branch block block, hypertension, dyslipidemia presents with severe back pain fevers chills and a mechanical fall. Has positive blood cultures for Streptococcus preliminary He underwent RAHEL yesterday no obvious vegetations were noted normal mechanical valve function. Patient has been feeling better today. Continue antibiotics I spent a total of 10 minutes coordinating, documenting, and providing care for this patient excluding time spent in the performance of separately billed services. All of the aforementioned completed while collaborating with the assigned advanced practitioner for a full treatment plan Subjective Patient resting in bed. remains slightly diaphoretic. Patient reports symptoms have improved since yesterday. BP improved. No longer hypotensive. No fever or chills. No chest pain or dyspnea. Review of Systems Review of Systems: All systems reviewed & are unremarkable except as noted in HPI & below Physical Exam Constitutional: well nourished and + ill appearing; no acute distress Respiratory: no respiratory distress, no labored breathing and no retractions Auscultation: lungs clear to auscultation bilaterally; no crackles, no rales, no rhonchi and no wheezes Cardiovascular: Rate/Rhythm: regular rate and regular rhythm Heart Sounds: normal S1, normal S2, + click and + murmur (2/6 SILVIA) Vessels: no JVD and no carotid bruit Extremities: no edema Gastrointestinal (Abdomen): Inspection/Auscultation: abdomen normal to inspection and normal bowel sounds; abdomen not distended Percussion/Palpation: abdomen soft; abdomen nontender, no guarding and abdomen not rigid Neurologic: CN's II-XI intact bilaterally and moves all extremities; no focal motor deficits Results & Data Vital Signs (Past 12 Hours) Vital Signs Temp Pulse Pulse Resp BP Pulse Ox O2 Del Method 05/29/24 15:20 36.4 C L 56 L 18 120/72 94 Room Air 05/29/24 11:42 36.4 C L 53 L 18 111/67 95 Room Air 05/29/24 08:00 36.5 C 68 18 155/74 H 97 Room Air Laboratory Results Cardiac Enzymes 05/29/24 Range/Units 05:49 AST 16 (13-39) U/L Coagulation 05/29/24 Range/Units 05:49 PT 36.0 H (9.0-12.0) Seconds CBC 05/29/24 Range/Units 05:49 WBC 6.78 (4.8-10.8) K/ul RBC 4.12 L (4.70-6.10) M/uL Hgb 9.6 L (14.0-18.0) g/dl Hct 32.5 L (42.0-52.0) % Plt Count 406 H (130-400) K/uL Neut # (Auto) 5.46 (1.40-6.50) K/uL Lymph # (Auto) 0.97 L (1.20-3.40) K/uL [place] # (Auto) 0.30 (0.11-0.59) K/uL Eos # (Auto) 0.01 (0.00-0.50) K/uL Baso # (Auto) 0.01 (0.00-0.20) K/uL Comprehensive Metabolic Panel 05/29/24 Range/Units 05:49 Sodium 137 (136-145) mmol/L Potassium 4.7 (3.5-5.1) mmol/L Chloride 103 (98-107) mmol/L Carbon Dioxide 28 (21-32) mmol/L BUN 12 (6-23) mg/dl Creatinine 0.70 (0.6-1.4) mg/dl Glucose 92 (70-99(Fasting)) mg/dl Calcium 9.2 (8.6-10.3) mg/dl AST 16 (13-39) U/L ALT 9 (7-52) U/L Alkaline Phosphatase 83 (34-104) U/L Total Protein 7.9 (6.0-8.3) gm/dl Albumin 2.9 L (3.4-5.0) gm/dl Intake and Output 05/29/24 05/29/24 05/29/24 06:59 14:59 22:59 Intake Total 400 / 2105 300 / 300 Output Total 500 / 3000 Balance -100 / -895 300 / 300 Intake: IV 200 / 875 300 / 300 Acetaminophen 1,000 mg In 100 100 / 300 100 / 100 ml @ 400 mls/hr IV Q8H [facility] Rx#: [id number] Ampicillin/Sulbactam Sod 3,000 100 / 200 200 / 200 mg In Sodium Chlor 0.9% Mini-B 100 ml @ 100 mls/hr IV Q6H [facility] Rx#:[id number] Oral 200 / 830 Output: Urine 500 / 3000 Other: Weight 123.2 kg Weight Measurement Method Built in [facility] Diagnostic Findings Initial blood cultures + on 7/24 x2. Urine culture positive repeat blood cultures on 05/28 - prelim - no growth thus far. RAHEL report reviewed from 05/28/24: LV systolic function is normal. EF 60-65% Bileaflet [place] aortic mechanical prosthesis no aortic valvular vegetation. Mild MR. Intimal flap visualized extending from the distal aortic arch to the distal descending aorta consistent with known aortic dissection Medications Administered Current Inpatient Medications Atorvastatin Calcium (Atorvastatin 10 Mg Tab) 10 mg PO HS [facility] Stop: 06/25/24 20:59 Last Admin: 05/28/24 19:58 Dose: 10 mg Clopidogrel Bisulfate (Clopidogrel Bisulfate 75 Mg Tab) 75 mg PO QAM [facility] Stop: 06/26/24 08:59 Last Admin: 05/29/24 08:51 Dose: 75 mg Cyclobenzaprine HCl (Cyclobenzaprine Hcl 10 Mg Tab) 10 mg PO TID PRN PRN Reason: Muscle Spasm Stop: 06/25/24 14:48 Last Admin: 05/29/24 08:57 Dose: 10 mg Duloxetine HCl (Duloxetine Hcl 30 Mg Cap) 30 mg PO DAILY [facility] Stop: 06/26/24 08:59 Last Admin: 05/29/24 08:51 Dose: 30 mg Duloxetine HCl (Duloxetine Hcl 60 Mg Cap) 60 mg PO DAILY [facility] Stop: 06/26/24 08:59 Last Admin: 05/29/24 08:51 Dose: 60 mg Hydromorphone HCl (Hydromorphone Inj 0.5 Mg/0.5 Ml Syr) 0.5 mg IV Q6H PRN PRN Reason: Severe Pain (Scale 7, 8, 9,10) Stop: 06/09/24 12:12 Last Admin: 05/28/24 22:01 Dose: 0.5 mg Promethazine HCl 6.25 mg/ (Sodium Chloride) 50.25 mls @ 201 mls/hr IV Q6H PRN PRN Reason: Nausea And Vomiting Stop: 06/25/24 14:48 Pantoprazole Sodium 40 mg/ (Syringe) 10 mls @ 5 mls/min IV BID [facility] Stop: 06/25/24 20:59 Last Admin: 05/29/24 08:52 Dose: 5 mls/min Acetaminophen (Ofirmev) 1,000 mg in 100 mls @ 400 mls/hr IV Q8H [facility] Stop: 05/31/24 00:00 Last Infusion: 05/29/24 10:05 Dose: Infused Ampicillin Sodium/Sulbactam Sodium 3,000 mg/ Sodium Chloride 100 mls @ 100 mls/hr IV Q6H [facility] Stop: 06/11/24 16:59 Last Infusion: 05/29/24 13:02 Dose: Infused Lidocaine (Lidocaine 5% 1 Patch) 1 patch TD QAM [facility] Stop: 06/26/24 17:29 Last Admin: 05/29/24 08:51 Dose: 1 patch Losartan Potassium (Losartan Potassium 50 Mg Tab) 50 mg PO BID [facility] Stop: 06/25/24 20:59 Last Admin: 05/29/24 08:51 Dose: 50 mg Methylprednisolone (Methylprednisolone 4 Mg Tab) 4 mg PO 0700,1300,1800 [facility] Stop: 05/29/24 18:01 Last Admin: 05/29/24 13:09 Dose: 4 mg Methylprednisolone (Methylprednisolone 4 Mg Tab) 8 mg PO HS [facility] Stop: 05/29/24 21:01 Methylprednisolone (Methylprednisolone 4 Mg Tab) 4 mg PO 0700,1300,1800,2100 [facility] Stop: 05/30/24 21:01 Methylprednisolone (Methylprednisolone 4 Mg Tab) 4 mg PO 0700,1300,2100 [facility] Stop: 05/31/24 21:01 Methylprednisolone (Methylprednisolone 4 Mg Tab) 4 mg PO 0700,2100 [facility] Stop: 06/01/24 21:01 Methylprednisolone (Methylprednisolone 4 Mg Tab) 4 mg PO 0700 [facility] Stop: 06/02/24 07:01 Metoprolol Tartrate (Metoprolol Tartrate 25 Mg Tab) 75 mg PO BID [facility] Stop: 06/25/24 20:59 Last Admin: 05/29/24 08:51 Dose: 75 mg Miscellaneous (Remove Lidoderm Patch) 1 each N/A DAILY@2100 [facility] Stop: 06/26/24 20:59 Last Admin: 05/28/24 19:58 Dose: 1 each Multivitamins (Multivitamin Tab) 1 tab PO DAILY [facility] Stop: 06/26/24 08:59 Last Admin: 05/29/24 08:51 Dose: 1 tab Oxycodone HCl (Oxycodone Hcl Ir 5 Mg Tab (Immediate Release)) 7.5 mg PO Q6H PRN PRN Reason: Moderate Pain (Scale 4, 5, 6) Stop: 06/09/24 14:48 Last Admin: 05/29/24 08:54 Dose: 7.5 mg Polyethylene Glycol (Polyethylene (Miralax) 17 Gm Pack) 17 gm PO DAILY PRN PRN Reason: Constipation Stop: 06/25/24 14:48 Vitamin D (Cholecalciferol 125 Mcg (5,000 Units) Tab) 125 mcg PO DAILY [facility] Stop: 06/26/24 08:59 Last Admin: 05/29/24 08:51 Dose: 125 mcg Warfarin Sodium (Warfarin Sod 5 Mg Tab) 15 mg PO [id number]@1600 [facility] Stop: 06/25/24 15:59 Last Admin: 05/27/24 16:22 Dose: 15 mg Warfarin Sodium (Warfarin Sod 10 Mg Tab) 10 mg PO MoFr@1600 [facility] Stop: 06/27/24 15:59 Last Admin: 05/28/24 15:08 Dose: 10 mg (6) Anemia Anemia type: unspecified type Qualified Code(s): D64.9 - Anemia, unspecified
[2024-05-30 06:19] LABS: Eosinophils # (auto) 0.01 K/uL (0.00-0.50); Eosinophils % (auto) 0.1 %; Hematocrit (blood only) 34.5 % (42.0-52.0); Hemoglobin 10.2 g/dl (14.0-18.0); Immature Granulocytes # (auto) 0.04 K/uL (0.01-0.20); Immature Granulocytes % (auto) 0.4 %; Lymphocytes # (auto) 1.25 K/uL (1.20-3.40); Lymphocytes % (auto) 13.7 %; Mean Corpuscular Hemoglobin 23.7 pg (25.0-34.0); Mean Corpuscular Hgb Conc 29.6 g/dL (32.0-36.0); Mean Platelet Volume 9.9 fL (9.4-12.4); Monocytes # (auto) 0.47 K/uL (0.11-0.59); Monocytes % (auto) 5.2 %; Neutrophils # (auto) 7.33 K/uL (1.40-6.50); Neutrophils % (auto) 80.6 %; Platelet Count 440 K/uL (130-400); RDW Standard Deviation 45.6 fL (36.4-46.3); Red Blood Count 4.31 M/uL (4.70-6.10)
[2024-05-30] MEDS: methylPREDNISolone 4 MG TAB PO SCH (06:25)
[2024-05-30 06:38] LABS: Albumin Globulin Ratio 0.6 (0.9-2); Albumin Level 3.1 gm/dl (3.4-5.0); BUN Creatinine Ratio 23.8 (10-20); Bilirubin,Total 0.4 mg/dl (0.2-1.0); Calcium 9.2 mg/dl (8.6-10.3); Creatinine Clr Calc Pharmacy 167.9 ml/min; Est GFR (African American) 132.3 ml/min; Est GFR (Non-African American) 114.1 ml/min; Phosphorus 4.5 mg/dl (2.5-4.9); Potassium 5.1 mmol/L (3.5-5.1); Total Protein 8.1 gm/dl (6.0-8.3)
[2024-05-30 06:44] LABS: INR 3.4 (0.9-1.1); Prothrombin Time 33.1 Seconds (9.0-12.0)
--- NOTE | 2024-05-30 14:23 | Hospitalist Progress Note ---
Date of Service May 30, 2024 Assessment & Plan (1) Fall: (2) Bacteremia: (3) Complicated UTI (urinary tract infection): (4) Ambulatory dysfunction: Plan Patient is 38-year-old male with PMH type I aortic dissection 07/2014 secondary to marked aortopathy s/p emergent aortic valve and root replacement with mechanical valve, with post discharge complication of cardiac tamponade requiring thoracotomy, pericardial window 07/29/2014, chronic diastolic heart failure, LBBB, HTN, dyslipidemia, obesity s/p gastric bypass, anxiety, depression, history DDD and others listed below presented to ER with c/o back pain after mechanical fall 1.5 weeks ago and weakness x 3 days with chills, sweats. Bacteremia Complicated UTI Pt presenting with chills and sweats, weakness after fall at home UA suggestive of infection urine culture grew Klebsiella Blood Cx x 2 sets (02/04) 05/26: grew strep mitis/oralis Repeat Blood Cx 2 sets 05/28 NGTD Was initially on IV Zosyn and Vancomycin Infectious Disease consulted for further recs, appreciate recs. recommended/stated the following: "-Recommend switching Vancomycin to Unasyn 3g q6 IV for now. - Recommend waiting for ID and susceptibility for bacteremia. Anticipate 2 weeks of IV antibiotics from first negative blood culture." Confirmed with ID, pt switched to IV Unasyn only Cardiology consulted in setting of bacteremia and Hx of mech valve -TTE without endocarditis -RAHEL on 05/28 without endocarditis as well Source of bacteremia likely dental, OMFS Dr Eubanks consulted. Appreciate further recs Continue to monitor Back pain Fall Degenerative Disc Disease CT Head: No acute intracranial hemorrhage, no evidence of acute territorial infarction or other acute intracranial disease process. CT C-Spine: No acute fracture CT Chest & Thoracic spine: No acute posttraumatic intrathoracic abnormality.No acute fracture or pneumothorax identified. Again seen is a Type A thoracic aortic dissection with postsurgical change as above. The postoperative appearance is likely unchanged from the 09/08/[address] lumbar spine: No evidence of acute abnormality and in particular no evidence of acute fracture. CT abd/pelvis:No evidence of acute abnormality and in particular no evidence of acute fracture. Chronic aortic dissection is unchanged. Status post cholecystomy. CT hip:No fracture or dislocation within the right hip. MRI Spine noting "Degenerative changes as above, most pronounced at L4-L5 and L5-S1. Edema and enhancement involving the L4-L5 facets on the right, likely degenerative/reactive." In ER given Flexeril and IV Tylenol with reported some improvement of back pain Scheduled IV Tylenol, oxycodone, Dilaudid, lidocaine patch as needed for pain Flexeril as needed for muscle spasm Ortho spine consulted appreciate recs Pain Management consulted, appreciate recs -started on steroids Continue IV ppi with steroids PT/OT ordered Iron deficiency Anemia Denies CP, SOB, melena, hematochezia Hgb: 8.8. Baseline Hgb: 12 Obtain Hemoccult stool Anemia labs noting iron deficiency anemia On warfarin chronically Protonix twice daily Avoid NSAIDs May need to consider GI consult if positive Hemoccult s/p IV Venofer 200mg on 05/27, 1 bag Monitor H&H Hypocalcemia Ionized yaquelin decreased PTH low, Vit D normal supplement as needed History of aortic dissection: S/P AVR (aortic valve replacement) Mechanical aortic valve Chronic thoracic aortic dissection: Anticoagulated on warfarin: Chronic heart failure with preserved ejection fraction: PMH type I aortic dissection 07/2014 secondary to marked aortopathy s/p emergent aortic valve and root replacement with mechanical valve, with post discharge complication of cardiac tamponade requiring thoracotomy, pericardial window 07/29/2014 Chronic thoracic aortic dissection noted on imaging, stable Chronically anticoagulated on warfarin, follow PT/INR Continue metoprolol, Plavix, Coumadin, atorvastatin Hold torsemide currently as appears on dry side. Reassess volume status Monitor H&H INR in a.m Cardiology consulted as noted above HTN (hypertension): Continue metoprolol, losartan HLD (hyperlipidemia) Continue atorvastatin Anxiety and depression Continue duloxetine History of gastric bypass: Obesity: Stable DVT Prophylaxis: Anticoagulated on warfarin, therapeutic INR currently Conditional Code, Wants CPR, defibrillation, medications but does not want intubation or mechanical ventilation as per discussion with pt Dispo: PT/OT recs once Admission and Anticipated Discharge Date Admission Date: May 26, 2024 Subjective Pt was seen multiple times. Initially laying in bed, states much better than the day before. Able to move, still some slight pain. Later discussion of culture results. Agreeable to OMFS consult for possible teeth removal. Review of Systems Review of Systems: All systems reviewed & are unremarkable except as noted in Subjective Physical Exam Physical Exam: General: improved with movements in the bed Psych: Appropriate mood and affect Neuro: improved ability with movements HEENT: NC/AT CV: RRR, mechanical murmur Resp: breath sounds clear but noted murmur heard on the back as well, no increased effort of breathing Abdomen: improved tenderness Extremities: edema in lower extremities Results & Data Results & Data Vital Signs (Past 12 Hours) Vital Signs Temp Pulse Resp BP BP Pulse Ox O2 Del Method 05/30/24 11:46 36.8 C 60 20 90/58 L 98 Room Air 05/30/24 07:52 36.5 C 59 L 16 118/63 96 Room Air 05/30/24 03:44 36.5 C 66 16 98/61 L 96 Room Air (1) Fall Encounter type: initial encounter Qualified Code(s): W19.XXXA - Unspecified fall, initial encounter
--- NOTE | 2024-05-30 15:36 | Cardiology Progress Note ---
Date of Service May 30, 2024 Assessment & Plan (1) Bacteremia: (2) H/O mechanical aortic valve replacement: (3) Complicated UTI (urinary tract infection): (4) Chronic heart failure with preserved ejection fraction: (5) History of aortic dissection: (6) Anemia: (7) Poor dentition: Plan 05/28/[address] Burrell: 38-year-old male admitted with back pain, sepsis, gram-positive bacteremia, and complicated UTI. Continue broad-spectrum antibiotics per direction of infectio us disease specialist and internal medicine. Repeat blood cultures ordered. Risk, benefits, and alternatives to transesophageal echocardiogram discussed. Patient agreeable to proceed. Continue oral anticoagulation with warfarin and antiplatelet therapy with clopidogrel at this time. Addendum: Transesophageal echocardiogram demonstrates normal mechanical prosthetic aortic valve function. No evidence of vegetation. Continue medications as noted above. Follow blood culture and sensitivity. Narrow spectrum of antibiotic therapy per direction of infectious disease. Cardiology will continue to follow during hospitalization. 05/29/24: Patient reports subjectively starting to feel better. ID consulted and antibiotics changed per ID and hospitalist service. Repeat blood cultures x2 on 05/28 - prelim - no growth thus far. Continue current treatment. HR and BP currently acceptable. Continue warfarin and plavix. 05/30/24: Continues to improve subjectively. No additional fevers or chills. Vitals are stable. Repeat blood cultures remain negative (prelim) Continue antibiotics RAHEL negative for vegetation on Monday 05/28 Continue current outpatient meds INR 3.4. Case discussed with Dr. Taylor. I spent a total of 25 minutes on the date of service in preparation, delivery, and documentation of the care provided to this patient, excluding any time spent in the performance of separately billed services. Adelaide Brian PA-C Department of Cardiology, [facility] This chart was completed in part utilizing Speech Voice Recognition Software. Grammatical errors, random word insertions, pronoun errors, and incomplete sentences are an occasional consequence of this system due to software limitations, ambient noise, and hardware issues. Any formal questions or concerns about the content, text, or information contained within the body of this dictation should be directly addressed to the provider for clarification. Admission and Anticipated Discharge Date Admission Date: May 26, 2024 Subjective Patient resting in bed. Continues to feel better each day. No additional fevers or chills. Diaphoresis improved. No chest pain or dyspnea. repeat blood cultures (prelim) remain negative Review of Systems Review of Systems: All systems reviewed & are unremarkable except as noted in HPI & below Physical Exam Constitutional: well nourished and + ill appearing; no acute distress Respiratory: no respiratory distress, no labored breathing and no retractions Auscultation: lungs clear to auscultation bilaterally; no crackles, no rales, no rhonchi and no wheezes Cardiovascular: Rate/Rhythm: regular rate and regular rhythm Heart Sounds: normal S1, normal S2, + click and + murmur (2/6 SILVIA) Vessels: no JVD and no carotid bruit Extremities: no edema Gastrointestinal (Abdomen): Inspection/Auscultation: abdomen normal to inspection and normal bowel sounds; abdomen not distended Percussion/Palpation: abdomen soft; abdomen nontender, no guarding and abdomen not rigid Neurologic: CN's II-XI intact bilaterally and moves all extremities; no focal motor deficits Results & Data Vital Signs (Past 12 Hours) Vital Signs Temp Pulse Resp BP BP Pulse Ox O2 Del Method 05/30/24 15:24 36.6 C 61 16 93/60 L 96 Room Air 05/30/24 11:46 36.8 C 60 20 90/58 L 98 Room Air 05/30/24 07:52 36.5 C 59 L 16 118/63 96 Room Air 05/30/24 03:44 36.5 C 66 16 98/61 L 96 Room Air Laboratory Results Cardiac Enzymes 05/30/24 05/30/24 Range/Units 05:53 08:38 AST 17 (13-39) U/L Troponin I High Sens 4.1 (0-20) pg/ml Coagulation 05/30/24 Range/Units 05:53 PT 33.1 H (9.0-12.0) Seconds CBC 05/30/24 Range/Units 05:53 WBC 9.10 (4.8-10.8) K/ul RBC 4.31 L (4.70-6.10) M/uL Hgb 10.2 L (14.0-18.0) g/dl Hct 34.5 L (42.0-52.0) % Plt Count 440 H (130-400) K/uL Neut # (Auto) 7.33 H (1.40-6.50) K/uL Lymph # (Auto) 1.25 (1.20-3.40) K/uL Sequoyah # (Auto) 0.47 (0.11-0.59) K/uL Eos # (Auto) 0.01 (0.00-0.50) K/uL Baso # (Auto) 0.00 (0.00-0.20) K/uL Comprehensive Metabolic Panel 05/30/24 Range/Units 05:53 Sodium 137 (136-145) mmol/L Potassium 5.1 (3.5-5.1) mmol/L Chloride 102 (98-107) mmol/L Carbon Dioxide 31 (21-32) mmol/L BUN 19 (6-23) mg/dl Creatinine 0.80 (0.6-1.4) mg/dl Glucose 100 H (70-99(Fasting)) mg/dl Calcium 9.2 (8.6-10.3) mg/dl AST 17 (13-39) U/L ALT 11 (7-52) U/L Alkaline Phosphatase 82 (34-104) U/L Total Protein 8.1 (6.0-8.3) gm/dl Albumin 3.1 L (3.4-5.0) gm/dl Intake and Output 05/30/24 05/30/24 05/30/24 06:59 14:59 22:59 Intake Total 400 / 1580 900 / 900 Output Total 680 / 3330 1050 / 1050 Balance -280 / -1750 -150 / -150 Intake: IV 200 / 700 300 / 300 Acetaminophen 1,000 mg In 100 100 / 300 100 / 100 ml @ 400 mls/hr IV Q8H [facility] Rx#: [id number] Ampicillin/Sulbactam Sod 3,000 100 / 400 200 / 200 mg In Sodium Chlor 0.9% Mini-B 100 ml @ 100 mls/hr IV Q6H [facility] Rx#:[id number] Oral 200 / 880 600 / 600 Output: Urine 680 / 3330 1050 / 1050 Other: Weight 118.4 kg Weight Measurement Method Built in [facility] Diagnostic Findings telemetry reviewed: Sinus bradycardia, NSR ranging 55-65 bmp Medications Administered Current Inpatient Medications Atorvastatin Calcium (Atorvastatin 10 Mg Tab) 10 mg PO [facility] Stop: 06/25/24 20:59 Last Admin: 05/29/24 20:13 Dose: 10 mg Clopidogrel Bisulfate (Clopidogrel Bisulfate 75 Mg Tab) 75 mg PO QAM [facility] Stop: 06/26/24 08:59 Last Admin: 05/30/24 08:06 Dose: 75 mg Cyclobenzaprine HCl (Cyclobenzaprine Hcl 10 Mg Tab) 10 mg PO TID PRN PRN Reason: Muscle Spasm Stop: 06/25/24 14:48 Last Admin: 05/30/24 08:13 Dose: 10 mg Duloxetine HCl (Duloxetine Hcl 30 Mg Cap) 30 mg PO DAILY [facility] Stop: 06/26/24 08:59 Last Admin: 05/30/24 08:06 Dose: 30 mg Duloxetine HCl (Duloxetine Hcl 60 Mg Cap) 60 mg PO DAILY [facility] Stop: 06/26/24 08:59 Last Admin: 05/30/24 08:06 Dose: 60 mg Hydromorphone HCl (Hydromorphone Inj 0.5 Mg/0.5 Ml Syr) 0.5 mg IV Q6H PRN PRN Reason: Severe Pain (Scale 7, 8, 9,10) Stop: 06/09/24 12:12 Last Admin: 05/30/24 11:29 Dose: 0.5 mg Promethazine HCl 6.25 mg/ (Sodium Chloride) 50.25 mls @ 201 mls/hr IV Q6H PRN PRN Reason: Nausea And Vomiting Stop: 06/25/24 14:48 Pantoprazole Sodium 40 mg/ (Syringe) 10 mls @ 5 mls/min IV BID [facility] Stop: 06/25/24 20:59 Last Admin: 05/30/24 08:14 Dose: 5 mls/min Acetaminophen (Ofirmev) 1,000 mg in 100 mls @ 400 mls/hr IV Q8H [facility] Stop: 05/31/24 00:00 Last Infusion: 05/30/24 08:21 Dose: Infused Ampicillin Sodium/Sulbactam Sodium 3,000 mg/ Sodium Chloride 100 mls @ 100 mls/hr IV Q6H [facility] Stop: 06/11/24 16:59 Last Infusion: 05/30/24 11:33 Dose: Infused Lidocaine (Lidocaine 5% 1 Patch) 1 patch TD QAM [facility] Stop: 06/26/24 17:29 Last Admin: 05/30/24 08:07 Dose: 1 patch Losartan Potassium (Losartan Potassium 50 Mg Tab) 50 mg PO BID [facility] Stop: 06/25/24 20:59 Last Admin: 05/30/24 10:39 Dose: 50 mg Methylprednisolone (Methylprednisolone 4 Mg Tab) 4 mg PO 0700,1300,1800,2100 [facility] Stop: 05/30/24 21:01 Last Admin: 05/30/24 13:21 Dose: 4 mg Methylprednisolone (Methylprednisolone 4 Mg Tab) 4 mg PO 0700,1300,2100 [facility] Stop: 05/31/24 21:01 Methylprednisolone (Methylprednisolone 4 Mg Tab) 4 mg PO 0700,2100 [facility] Stop: 06/01/24 21:01 Methylprednisolone (Methylprednisolone 4 Mg Tab) 4 mg PO 0700 [facility] Stop: 06/02/24 07:01 Metoprolol Tartrate (Metoprolol Tartrate 25 Mg Tab) 75 mg PO BID [facility] Stop: 06/25/24 20:59 Last Admin: 05/30/24 08:08 Dose: 75 mg Miscellaneous (Remove Lidoderm Patch) 1 each N/A DAILY@2099 [facility] Stop: 06/26/24 20:59 Last Admin: 05/29/24 20:13 Dose: 1 each Multivitamins (Multivitamin Tab) 1 tab PO DAILY [facility] Stop: 06/26/24 08:59 Last Admin: 05/30/24 08:06 Dose: 1 tab Oxycodone HCl (Oxycodone Hcl Ir 5 Mg Tab (Immediate Release)) 7.5 mg PO Q6H PRN PRN Reason: Moderate Pain (Scale 4, 5, 6) Stop: 06/09/24 14:48 Last Admin: 05/30/24 08:13 Dose: 7.5 mg Polyethylene Glycol (Polyethylene (Miralax) 17 Gm Pack) 17 gm PO DAILY PRN PRN Reason: Constipation Stop: 06/25/24 14:48 Vitamin D (Cholecalciferol 125 Mcg (5,000 Units) Tab) 125 mcg PO DAILY [facility] Stop: 06/26/24 08:59 Last Admin: 05/30/24 08:06 Dose: 125 mcg Warfarin Sodium (Warfarin Sod 5 Mg Tab) 15 mg PO [id number]@1600 [facility] Stop: 06/25/24 15:59 Last Admin: 05/27/24 16:22 Dose: 15 mg Warfarin Sodium (Warfarin Sod 10 Mg Tab) 10 mg PO [id number] [facility] Stop: 06/27/24 15:59 Last Admin: 05/28/24 15:08 Dose: 10 mg (6) Anemia Anemia type: unspecified type Qualified Code(s): D64.9 - Anemia, unspecified
--- NOTE | 2024-05-30 17:59 | Oral/Maxillofacial Consult ---
Date of Consultation May 30, 2024 Assessment & Plan (1) Poor dentition: (2) Encounter for pre-operative examination: (3) Bacteremia: (4) Anticoagulated on warfarin: (5) S/P AVR (aortic valve replacement): (6) H/O mechanical aortic valve replacement: (7) Aortic dissection: History of Present Illness Attending Physician: Kelsi Prince MD History of Present Illness Oral Maxillofacial Surgery Exam Present Complaint: I have pain/swelling/drainage from my infected teeth. Symptoms have been ongoing for a while- it was suggested to have carious teeth removed in the past Oral Exam: Finding--Fractured teeth, tender gingival tissue with deep pocket formation. Teeth are grossly infected and removal is clinical indicated. Imaging: CT scan The CT was reviewed, there were no abnormal findings other then the fractured grossly decayed roots and teeth. The TMJ are well positioned and no evidence of bony pathology. The sinus slight congestion but overall normal , supporting bone all WNL Evaluated the nerve/sinus relationship to the roots of the teeth. The following teeth are grossly fractured, decayed and associated with periapically infection and radiolucent apical lesions. Teeth needing removal are as follows---3,5,13,16,17,20,32 The other teeth have superficial carious lesions and should be maintained for chewing and future restorative dental care Soft tissue: The floor of the mouth, tongue, hard/soft palate, posterior pharyngeal area all with in normal limits, no pathology or abnormal findings noted. No lesions noted that require follow up or Bx. Oral Care: Overall oral care is fair Occlusion: Class I TMJ exam: No pop, clicking, pain, good ROM, No history of TMJ injury or dysfunction Periodontal exam: Generalized Gingival tissue inflammation with evidence of periodontal pathology. Head/Neck exam: Neck is supple, FROM, Able to extend and flex neck w/o difficulty, no masses, no abnormalities, no airway issues. No facial infection or abscess noted Treatment Plan: Will need to coordinate with medical and cardiology to get the INR down to at least 1.3 given the amount of dental surgery needed. Set up with general anesthesia in hospital due to complexity of the procedure I reviewed the treatment plan with the patient. Understanding was expressed. Time was given for questions regarding the surgery, risks and post op care. Discussed alternative to treatment--procedure as planned, Do not do surgery-this is not an option The following teeth are decayed and fractured and removal is indicated RADHA:3,5,13,16,17,20,32 Risks discussed: Bleeding,Pain,swelling,infection, dry socket, delayed healing, nerve injury to face,lips,tongue,chin area which could be permanent (rare). TMJ, jaw stiffness, change in bite (rare), ear pain (referred). Sinus problems like fistula or infection. Need to leave a small root fragment in place to avoid injury to nerve or sinus. Relationship of teeth to nerve/sinus and risk of jaw fracture. Bleeding is a know risk given his need for anticoagulation If he will be bridges that will also be another potential post op bleeding risk Unfortunately, we will need to deal with this given the need for the extraction of the teeth and this cardiac and valve issues. Surgery to be set up once coordinated with medical, cardiology and anesthesia I reviewed the medical history and reviewed the imaging to see if I can get some idea of the status of his dentition. Based upon a CTA of the neck 2022 there is evidence of poor dentition with many infected teeth, root radiolucencies. I will obtain a maxillofacial CT to get a better idea of the dentition and then make recommendations to remove any dental etiology to his present sepsis. I reviewed the new CT scan--there is significant gross decay and apical pathology. The teeth should be removed regardless if there was a concern for the sepsis as he is at risk for oral facial infection. I will see Deep this afternoon and finalize the treatment to allow coordination of the INR and bleeding risks. Pt presenting with chills and sweats, weakness after fall at home UA suggestive of infection urine culture grew Klebsiella Blood Cx x 2 sets (02/04) 05/26: grew strep mitis/oralis Repeat Blood Cx 2 sets 05/28 NGTD Was initially on IV Zosyn and Vancomycin Infectious Disease consulted for further recs, appreciate recs. recommended/stated the following: "-Recommend switching Vancomycin to Unasyn 3g q6 IV for now. - Recommend waiting for ID and susceptibility for bacteremia. Anticipate 2 weeks of IV antibiotics from first negative blood culture." Confirmed with ID, pt switched to IV Unasyn only Cardiology consulted in setting of bacteremia and Hx of mech valve -TTE without endocarditis -RAHEL on 05/28 without endocarditis as well Source of bacteremia likely dental, OMFS Dr Eubanks consulted. Appreciate further recs Continue to monitor History of aortic dissection: S/P AVR (aortic valve replacement) Mechanical aortic valve Chronic thoracic aortic dissection: Anticoagulated on warfarin: Chronic heart failure with preserved ejection fraction: Patient is 38-year-old male with PMH type I aortic dissection 07/2014 secondary to marked aortopathy s/p emergent aortic valve and root replacement with mechanical valve, with post discharge complication of cardiac tamponade requiring thoracotomy, pericardial window 07/29/2014, chronic diastolic heart failure, LBBB, HTN, dyslipidemia, obesity s/p gastric bypass, anxiety, depression, history DDD who presented to [facility] on 05/26/2024 with c/o back pain and weakness. Per notes and chart review, pt missed a step and fell backwards onto buttocks and back approximately 5 feet. Initially was walking and ambulating ok. Noted bruising to right buttock which is slowing resolving. C/O having right lower ba ck pain. Past 3 days with increased pain with reported spasms across his back. He states pain radiates up back and down right hip and leg and describes as stabbing type pain. Pt took Tylenol without much relief. Pt started feeling bilateral leg weakness and generalized weakness for 3 days prior to admission with associated chills, sweats. This prompted visit to ED. At [facility], infectious work-up showed Strep in blood and Kleb in urine culture. CT and MRI imaging negative. TTE negative for endocarditis. ID consulted for evaluation and management. Allergies Allergy/AdvReac Type Severity Reaction Status Date / Time No Known Allergies Allergy Verified 05/26/24 09:34 Home Medications Medication Instructions Recorded Confirmed Type clopidogrel 75 mg tablet 75 mg PO QAM 11/12/18 05/26/24 History duloxetine 60 mg capsule,delayed 60 mg PO DAILY 11/12/18 05/26/24 History release warfarin 5 mg tablet See Rx Instructions .Route .COMPLEX 12/06/19 05/26/24 History duloxetine 30 mg capsule,delayed 30 mg PO DAILY 03/11/21 05/26/24 History release acetaminophen 500 mg tablet 1,000 mg PO Q6H PRN Pain 04/08/21 05/26/24 History (Tylenol Extra Strength) multivitamin 1 tab PO DAILY 04/20/21 05/26/24 History atorvastatin 10 mg tablet 10 mg PO HS 05/26/24 05/26/24 History cholecalciferol (vitamin D3) 125 125 mcg PO DAILY 05/26/24 05/26/24 History mcg (5,000 unit) tablet (Vitamin D3) losartan 50 mg tablet 50 mg PO BID 05/26/24 05/26/24 History metoprolol tartrate 25 mg tablet 75 mg PO BID 05/26/24 05/26/24 History Patient History Medical History (Updated 05/28/24 @ 12:14 by Lloyd Burrell DO) History of aortic dissection Atypical chest pain Gastroenteritis Generalized weakness Flu-like symptoms Acute chest pain LBBB (left bundle branch block) Congenital bicuspid aortic valve Chest pain Surgical History H/O mechanical aortic valve replacement Family History Mother Alive and well Father Alive and well Grandfather (Maternal) Coronary heart disease T2DM (type 2 diabetes mellitus) Grandmother (Maternal) T2DM (type 2 diabetes mellitus) Coronary heart disease Other No family history of kidney disease Social History Smoking Status: Former smoker Cigarettes Per Day: 1; Smoking End Date: 9 years ago; Second Hand Exposure: No; Do You Dip or Chew Tobacco: No; Tobacco Cessation Education Requested by Patient: No Hx Alcohol Use: No Hx Substance Use: No Preferred Language: Fijian Communication Ability: Effective [employer] Required: No Beliefs That Will Affect Care: None marital status: Single Current Living Situation: Other Current Living Situation Comment: father lives with patient Other Information That Helps Us Care for You: No Feels Safe at Home: Yes Safety Concerns: Feels Safe At This Time Assistive Devices: Cane and Walker Results & Data Vital Signs (Past 12 Hours) Vital Signs Temp Pulse Resp BP BP Pulse Ox O2 Del Method 05/30/24 15:24 36.6 C 61 16 93/60 L 96 Room Air 05/30/24 11:46 36.8 C 60 20 90/58 L 98 Room Air 05/30/24 07:52 36.5 C 59 L 16 118/63 96 Room Air PG Care Time/CCT Total # of Minutes Spent Total Time Spent with Patient: Total time spent is greater than 50% in coordination of care (as documented) at patient's floor/unit and/or counseling patient: Coding Level of Care Code 90284 INT INP/OBS CARE MIN Diagnoses Poor dentition K08.9 Encounter for pre-operative examination Z01.818 Bacteremia R78.81 Anticoagulated on warfarin Z79.01 S/P AVR (aortic valve replacement) Z95.2 H/O mechanical aortic valve replacement Z95.2 Aortic dissection I71.00
--- NOTE | 2024-05-30 22:32 | CT Scan Report ---
Exam(s): CT FACIAL Without Contrast EXAM: CT Maxillofacial Without Intravenous Contrast CLINICAL HISTORY: Reason for exam: dental cause sepsis poor dentition/carious teeth. TECHNIQUE: Axial computed tomography images of the face without intravenous contrast. Automated exposure control was utilized for the study. A dose lowering technique was utilized adhering to the principles of ALARA. Moderate motion artifact and noncontrast technique the evaluation for abscess. COMPARISON: No relevant prior studies available. FINDINGS: Bones/joints: Probable tooth extraction left mandibular molar tooth. Mild periapical lucency right last molar tooth, could reflect dental caries. No acute fracture. Soft tissues: Mild air in the right infratemporal soft tissues, nonspecific, etiology not ascertained, could have been introduced via an IV. No definite abscess. Orbits: Unremarkable. Sinuses: Unremarkable. No air-fluid levels. IMPRESSION: 1. Probable right mandibular molar dental caries, and suspect tooth extraction left mandibular molar. 2. No definite abscess. 3. Limited evaluation due to motion artifact. Electronically signed by: Maxine Howard M.D. 05/30/24 22:31 PM
[2024-05-31] MEDS: methylPREDNISolone 4 MG TAB PO SCH (06:08)
[2024-05-31 07:32] LABS: Basophils # (auto) 0.03 K/uL (0.00-0.20); Basophils % (auto) 0.4 %; Eosinophils # (auto) 0.02 K/uL (0.00-0.50); Eosinophils % (auto) 0.3 %; Hematocrit (blood only) 36.8 % (42.0-52.0); Hemoglobin 10.6 g/dl (14.0-18.0); Immature Granulocytes # (auto) 0.05 K/uL (0.01-0.20); Immature Granulocytes % (auto) 0.7 %; Lymphocytes # (auto) 1.66 K/uL (1.20-3.40); Lymphocytes % (auto) 23.2 %; Mean Corpuscular Hemoglobin 23.1 pg (25.0-34.0); Mean Corpuscular Hgb Conc 28.8 g/dL (32.0-36.0); Mean Corpuscular Volume 80.3 fL (80.0-100.0); Mean Platelet Volume 9.6 fL (9.4-12.4); Monocytes # (auto) 0.54 K/uL (0.11-0.59); Monocytes % (auto) 7.6 %; Neutrophils # (auto) 4.85 K/uL (1.40-6.50); Neutrophils % (auto) 67.8 %; Platelet Count 408 K/uL (130-400); RDW Coefficient of Variation 16.4 % (11.5-14.5); Red Blood Count 4.58 M/uL (4.70-6.10); White Blood Count 7.15 K/ul (4.8-10.8)
[2024-05-31 07:48] LABS: Albumin Globulin Ratio 0.6 (0.9-2); Albumin Level 3.2 gm/dl (3.4-5.0); BUN Creatinine Ratio 27.6 (10-20); Bilirubin,Total 0.4 mg/dl (0.2-1.0); Est GFR (African American) 135.1 ml/min; Est GFR (Non-African American) 116.6 ml/min; Magnesium 1.9 mg/dl (1.7-2.4); Phosphorus 4.5 mg/dl (2.5-4.9); Potassium 4.7 mmol/L (3.5-5.1); Total Protein 8.2 gm/dl (6.0-8.3)
[2024-05-31 07:53] LABS: INR 3.2 (0.9-1.1); Prothrombin Time 31.2 Seconds (9.0-12.0)
--- NOTE | 2024-05-31 10:52 | Cardiology Progress Note ---
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 Patient presented to [facility] following a mechanical fall 1.5 weeks prior, with severe acute on chronic back pain, weakness, fevers, and chills. Workup revealed gram-positive bacteremia, possible dental source, and a complicated UTI. Transesophageal echocardiography demonstrated normal mechanical prosthetic aortic valve function without evidence of vegetation. Infectious disease has recommended 2 weeks of antibiotics from first negative blood culture. INR 3.2. Volume status is compensated. Patient maintaining sinus rhythm. Continue prior to arrival cardiac medications. Please contact with any questions or concerns. I spent a total of 26 minutes on the date of service in preparation, delivery, and documentation of the care provided to this patient excluding any time spent in the performance of separately billed services. This visit was a split-shared visit with the substantive portion of the medical decision making performed by the supervising lock master/billing provider. Admission and Anticipated Discharge Date Admission Date: May 26, 2024 Supervising Physician Co-Signing Physician Notes Patient was seen and personally examined. Chart current and past records reviewed assessment and plan as above. Complex 38-year-old male status post type I acute aortic dissection and subsequent aortic valve replacement with mechanical valve. Admitted with back pain but subsequently observed bacteremia found possible dental origin Stable from cardiac standpoint Noted possible plans for dental surgery. Will need bridge anticoagulation with IV heparin if warfarin to be reversed Please contact with surgical plans or date I spent a total of 25 minutes on the date of service in preparation, delivery, and documentation of the care provided to this patient exclu Subjective Patient seen and examined. Chart, medications, and telemetry reviewed. Ongoing back pain. No fevers. No rigors. Appetite is OK. No chest pain. No palpitations. No orthopnea. No PND. No peripheral edema. Telemetry: Sinus at 76 bpm. Heart rates down into the 40s overnight. Review of Systems Review of Systems: Complete Review of Systems is as stated above, negative, or noncontributory. Physical Exam Physical Exam: General: A&Ox3. NAD. HENT: Normocephalic. Atraumatic. Eyes: PER. Conjunctiva pink, sclera clear. Neck: Transmitted systolic murmur. No JVD. Heart: Regular. [place] mechanical valve sounds. Soft early systolic ejection murmur. No diastolic murmur. Lungs: Clear to auscultation. Abdomen: +BS. Soft. Nontender. No masses or organomegaly. Extremities: No edema. Limited neurological examination is without focal deficits. Pulses: radial=2/4, posterior tibial=2/4. Results & Data Vital Signs (Past 12 Hours) Vital Signs Temp Pulse Pulse Pulse Resp BP Pulse Ox 05/31/24 09:50 05/31/24 08:54 45 L 05/31/24 08:53 45 L 05/31/24 08:12 36.4 C L 63 16 94/67 L 98 05/31/24 03:19 36.5 C 60 16 90/59 L 96 O2 Del Method 05/31/24 09:50 Room Air 05/31/24 08:54 05/31/24 08:53 05/31/24 08:12 Room Air 05/31/24 03:19 Room Air Laboratory Results Cardiac Enzymes 05/31/24 Range/Units 07:01 AST 28 (13-39) U/L Coagulation 05/31/24 Range/Units 07:01 PT 31.2 H (9.0-12.0) Seconds CBC 05/31/24 Range/Units 07:01 WBC 7.15 (4.8-10.8) K/ul RBC 4.58 L (4.70-6.10) M/uL Hgb 10.6 L (14.0-18.0) g/dl Hct 36.8 L (42.0-52.0) % Plt Count 408 H (130-400) K/uL Neut # (Auto) 4.85 (1.40-6.50) K/uL Lymph # (Auto) 1.66 (1.20-3.40) K/uL [place] # (Auto) 0.54 (0.11-0.59) K/uL Eos # (Auto) 0.02 (0.00-0.50) K/uL Baso # (Auto) 0.03 (0.00-0.20) K/uL Comprehensive Metabolic Panel 05/31/24 Range/Units 07:01 Sodium 138 (136-145) mmol/L Potassium 4.7 (3.5-5.1) mmol/L Chloride 101 (98-107) mmol/L Carbon Dioxide 32 (21-32) mmol/L BUN 21 (6-23) mg/dl Creatinine 0.76 (0.6-1.4) mg/dl Glucose 81 (70-99(Fasting)) mg/dl Calcium 9.0 (8.6-10.3) mg/dl AST 28 (13-39) U/L ALT 20 (7-52) U/L Alkaline Phosphatase 86 (34-104) U/L Total Protein 8.2 (6.0-8.3) gm/dl Albumin 3.2 L (3.4-5.0) gm/dl Intake and Output 05/30/24 05/31/24 05/31/24 22:59 06:59 14:59 Intake Total 560 / 2240 780 / 2240 Output Total 880 / 2810 880 / 2810 Balance -320 / -570 -100 / -570 Intake: IV 200 / 800 300 / 800 Acetaminophen 1,000 mg In 100 100 / 300 100 / 300 ml @ 400 mls/hr IV Q8H [facility] Rx#: [id number] Ampicillin/Sulbactam Sod 3,000 100 / 500 200 / 500 mg In Sodium Chlor 0.9% Mini-B 100 ml @ 100 mls/hr IV Q6H [facility] Rx#:[id number] Oral 360 / 1440 480 / 1440 Output: Urine 880 / 2810 880 / 2810 Other: Weight 117.4 kg Weight Measurement Method Built in [facility] (6) Anemia Anemia type: unspecified type Qualified Code(s): D64.9 - Anemia, unspecified
--- NOTE | 2024-05-31 12:53 | Hospitalist Progress Note ---
Date of Service May 31, 2024 Assessment & Plan (1) Fall: (2) Bacteremia: (3) Complicated UTI (urinary tract infection): (4) Ambulatory dysfunction: Plan Patient is 38-year-old male with PMH type I aortic dissection 07/2014 secondary to marked aortopathy s/p emergent aortic valve and root replacement with mechanical valve, with post discharge complication of cardiac tamponade requiring thoracotomy, pericardial window 07/29/2014, chronic diastolic heart failure, LBBB, HTN, dyslipidemia, obesity s/p gastric bypass, anxiety, depression, history DDD and others listed below presented to ER with c/o back pain after mechanical fall 1.5 weeks ago and weakness x 3 days with chills, sweats. Bacteremia Complicated UTI Pt presenting with chills and sweats, weakness after fall at home UA suggestive of infection urine culture grew Klebsiella Blood Cx x 2 sets (02/04) 05/26: grew strep mitis/oralis Repeat Blood Cx 2 sets 05/28 NGTD Was initially on IV Zosyn and Vancomycin Infectious Disease consulted for further recs, appreciate recs. recommended/stated the following: "-Recommend switching Vancomycin to Unasyn 3g q6 IV for now. - Recommend waiting for ID and susceptibility for bacteremia. Anticipate 2 weeks of IV antibiotics from first negative blood culture." Confirmed with ID, pt switched to IV Unasyn only Cardiology consulted in setting of bacteremia and Hx of mech valve -TTE without endocarditis -RAHEL on 05/28 without endocarditis as well Source of bacteremia likely dental, OMFS Dr Eubanks consulted. Appreciate further recs -will need INR reversed to 1.3 for surgery -cardiology recs appreciated- advised "Will need bridge anticoagulation with IV heparin if warfarin to be reversed" at this time will hold warfarin and allow INR to decrease, and start IV heparin once INR below 2.5 Continue to monitor Back pain Fall Degenerative Disc Disease CT Head: No acute intracranial hemorrhage, no evidence of acute territorial infarction or other acute intracranial disease process. CT C-Spine: No acute fracture CT Chest & Thoracic spine: No acute posttraumatic intrathoracic abnormality.No acute fracture or pneumothorax identified. Again seen is a Type A thoracic aortic dissection with postsurgical change as above. The postoperative appearance is likely unchanged from the 09/08/[address] lumbar spine: No evidence of acute abnormality and in particular no evidence of acute fracture. CT abd/pelvis:No evidence of acute abnormality and in particular no evidence of acute fracture. Chronic aortic dissection is unchanged. Status post cholecystomy. CT hip:No fracture or dislocation within the right hip. MRI Spine noting "Degenerative changes as above, most pronounced at L4-L5 and L5-S1. Edema and enhancement involving the L4-L5 facets on the right, likely degenerative/reactive." In ER given Flexeril and IV Tylenol with reported some improvement of back pain Scheduled IV Tylenol, oxycodone, Dilaudid, lidocaine patch as needed for pain Flexeril as needed for muscle spasm Ortho spine consulted appreciate recs Pain Management consulted, appreciate recs -started on steroids Continue IV ppi with steroids PT/OT ordered Iron deficiency Anemia Denies CP, SOB, melena, hematochezia Hgb: 8.8. Baseline Hgb: 12 Obtain Hemoccult stool Anemia labs noting iron deficiency anemia On warfarin chronically Protonix twice daily Avoid NSAIDs May need to consider GI consult if positive Hemoccult s/p IV Venofer 200mg on 05/27, 1 bag Monitor H&H Hypocalcemia Ionized yaquelin decreased PTH low, Vit D normal supplement as needed History of aortic dissection: S/P AVR (aortic valve replacement) Mechanical aortic valve Chronic thoracic aortic dissection: Anticoagulated on warfarin: Chronic heart failure with preserved ejection fraction: PMH type I aortic dissection 07/2014 secondary to marked aortopathy s/p emergent aortic valve and root replacement with mechanical valve, with post discharge complication of cardiac tamponade requiring thoracotomy, pericardial window 07/29/2014 Chronic thoracic aortic dissection noted on imaging, stable Chronically anticoagulated on warfarin, follow PT/INR Continue metoprolol, Plavix, Coumadin, atorvastatin Hold torsemide currently as appears on dry side. Reassess volume status Monitor H&H Monitor INR Cardiology consulted as noted above Per cardiology regarding need for surgery and need to have INR reversed: advised "Will need bridge anticoagulation with IV heparin if warfarin to be reversed" at this time will hold warfarin and allow INR to decrease, and start IV heparin once INR below 2.5 HTN (hypertension): Continue metoprolol, losartan HLD (hyperlipidemia) Continue atorvastatin Anxiety and depression Continue duloxetine History of gastric bypass: Obesity: Stable DVT Prophylaxis: Anticoagulated on warfarin, therapeutic INR currently Conditional Code, Wants CPR, defibrillation, medications but does not want intubation or mechanical ventilation as per discussion with pt Dispo: PT/OT recs once Admission and Anticipated Discharge Date Admission Date: May 26, 2024 Subjective pt was seen sitting up in chair at bedside Noted improvement in symptoms. Will be seen by OMFS Review of Systems Review of Systems: All systems reviewed & are unremarkable except as noted in Subjective Physical Exam Physical Exam: General: improved with movements i Psych: Appropriate mood and affect Neuro: improved ability with movements HEENT: NC/AT CV: RRR, mechanical murmur Resp: breath sounds clear but noted murmur heard on the back as well, no increased effort of breathing Abdomen: improved tenderness Extremities: edema in lower extremities Results & Data Results & Data Vital Signs (Past 12 Hours) Vital Signs Temp Pulse Pulse Pulse Resp BP Pulse Ox 05/31/24 12:09 36.3 C L 76 16 103/67 94 05/31/24 09:50 05/31/24 08:54 45 L 05/31/24 08:53 45 L 05/31/24 08:12 36.4 C L 63 16 94/67 L 98 05/31/24 03:19 36.5 C 60 16 90/59 L 96 O2 Del Method 05/31/24 12:09 Room Air 05/31/24 09:50 Room Air 05/31/24 08:54 05/31/24 08:53 05/31/24 08:12 Room Air 05/31/24 03:19 Room Air (1) Fall Encounter type: initial encounter Qualified Code(s): W19.XXXA - Unspecified fall, initial encounter
[2024-05-31] MEDS ORDERED: HEPARIN SODIUM/DEXTROSE 25,000 UNITS/500 ML BAG IV SCH (19:30)
[2024-05-31] MEDS: Heparin IV Adult Wt-Based Low-Dose *NO* INITIAL Bolus Protocol IV STA (19:53)
--- NOTE | 2024-06-01 05:37 | Electrocardiogram Report ---
Test Reason : Blood Pressure : / mmHG Vent. Rate : 068 BPM Atrial Rate : 068 BPM P-R Int : 180 ms QRS Dur : 160 ms QT Int : 474 ms P-R-T Axes : 047 -15 118 degrees QTc Int : 504 ms Normal sinus rhythm Possible Left atrial enlargement Left bundle branch block Abnormal ECG When compared with ECG of 26-MAY-2024 08:45, No significant change was found Confirmed by Tim Brown ([id number]) on 06/01/2024 5:37:12 AM Referred By: REFERRED SELF Confirmed By:Tim Brown
[2024-06-01] MEDS: methylPREDNISolone 4 MG TAB PO SCH (06:35)
[2024-06-01 07:07] LABS: Basophils # (auto) 0.02 K/uL (0.00-0.20); Basophils % (auto) 0.3 %; Eosinophils # (auto) 0.06 K/uL (0.00-0.50); Eosinophils % (auto) 0.8 %; Hematocrit (blood only) 38.2 % (42.0-52.0); Hemoglobin 11.3 g/dl (14.0-18.0); Immature Granulocytes % (auto) 1.3 %; Lymphocytes # (auto) 1.87 K/uL (1.20-3.40); Lymphocytes % (auto) 24.3 %; Mean Corpuscular Hemoglobin 23.8 pg (25.0-34.0); Mean Corpuscular Hgb Conc 29.6 g/dL (32.0-36.0); Mean Corpuscular Volume 80.4 fL (80.0-100.0); Monocytes # (auto) 0.62 K/uL (0.11-0.59); Neutrophils # (auto) 5.04 K/uL (1.40-6.50); Neutrophils % (auto) 65.3 %; Platelet Count 415 K/uL (130-400); RDW Coefficient of Variation 16.8 % (11.5-14.5); RDW Standard Deviation 47.2 fL (36.4-46.3); Red Blood Count 4.75 M/uL (4.70-6.10); White Blood Count 7.71 K/ul (4.8-10.8)
[2024-06-01 07:18] LABS: Albumin Globulin Ratio 0.7 (0.9-2); Albumin Level 3.4 gm/dl (3.4-5.0); BUN Creatinine Ratio 27.3 (10-20); Bilirubin,Total 0.5 mg/dl (0.2-1.0); Calcium 9.2 mg/dl (8.6-10.3); Creatinine Clr Calc Pharmacy 151.9 ml/min; Est GFR (African American) 127.2 ml/min; Est GFR (Non-African American) 109.7 ml/min; Globulin 4.6 gm/dl (2.5-4.0); Magnesium 1.9 mg/dl (1.7-2.4); Phosphorus 4.3 mg/dl (2.5-4.9); Potassium 4.3 mmol/L (3.5-5.1)
[2024-06-01 07:30] LABS: INR 3.6 (0.9-1.1); Prothrombin Time 35.1 Seconds (9.0-12.0)
--- NOTE | 2024-06-01 10:02 | Hospitalist Progress Note ---
Date of Service June 01, 2024 Assessment & Plan (1) Fall: (2) Bacteremia: (3) Complicated UTI (urinary tract infection): (4) Ambulatory dysfunction: Plan Patient is 38-year-old male with PMH type I aortic dissection 07/2014 secondary to marked aortopathy s/p emergent aortic valve and root replacement with mechanical valve, with post discharge complication of cardiac tamponade requiring thoracotomy, pericardial window 07/29/2014, chronic diastolic heart failure, LBBB, HTN, dyslipidemia, obesity s/p gastric bypass, anxiety, depression, history DDD and others listed below presented to ER with c/o back pain after mechanical fall 1.5 weeks ago and weakness x 3 days with chills, sweats. Bacteremia Complicated UTI Pt presenting with chills and sweats, weakness after fall at home UA suggestive of infection urine culture grew Klebsiella Blood Cx x 2 sets (02/04) 05/26: grew strep mitis/oralis Repeat Blood Cx 2 sets 05/28 NGTD Was initially on IV Zosyn and Vancomycin Infectious Disease consulted for further recs, appreciate recs. recommended/stated the following: "-Recommend switching Vancomycin to Unasyn 3g q6 IV for now. - Recommend waiting for ID and susceptibility for bacteremia. Anticipate 2 weeks of IV antibiotics from first negative blood culture." Confirmed with ID, pt switched to IV Unasyn only Cardiology consulted in setting of bacteremia and Hx of mech valve -TTE without endocarditis -RAHEL on 05/28 without endocarditis as well Source of bacteremia likely dental, OMFS Dr Eubanks consulted. Appreciate further recs -will need INR reversed to 1.3 for surgery -cardiology recs appreciated- advised "Will need bridge anticoagulation with IV heparin if warfarin to be reversed", cardiology to reverse -per Dr eubanks on 06/01 anticipate surgery AM 06/03 or PM 06/04, can do on 06/05 urgently as well at this time will hold warfarin per cardiology Continue to monitor Back pain Fall Degenerative Disc Disease CT Head: No acute intracranial hemorrhage, no evidence of acute territorial infarction or other acute intracranial disease process. CT C-Spine: No acute fracture CT Chest & Thoracic spine: No acute posttraumatic intrathoracic abnormality.No acute fracture or pneumothorax identified. Again seen is a Type A thoracic aortic dissection with postsurgical change as above. The postoperative appearance is likely unchanged from the 09/08/[address] lumbar spine: No evidence of acute abnormality and in particular no evidence of acute fracture. CT abd/pelvis:No evidence of acute abnormality and in particular no evidence of acute fracture. Chronic aortic dissection is unchanged. Status post cholecystomy. CT hip:No fracture or dislocation within the right hip. MRI Spine noting "Degenerative changes as above, most pronounced at L4-L5 and L5-S1. Edema and enhancement involving the L4-L5 facets on the right, likely degenerative/reactive." In ER given Flexeril and IV Tylenol with reported some improvement of back pain Scheduled IV Tylenol, oxycodone, Dilaudid, lidocaine patch as needed for pain Flexeril as needed for muscle spasm Ortho spine consulted appreciate recs Pain Management consulted, appreciate recs -started on steroids Continue IV ppi with steroids PT/OT ordered improved Iron deficiency Anemia Denies CP, SOB, melena, hematochezia Hgb: 8.8. Baseline Hgb: 12 Obtain Hemoccult stool Anemia labs noting iron deficiency anemia On warfarin chronically Protonix twice daily Avoid NSAIDs May need to consider GI consult if positive Hemoccult s/p IV Venofer 200mg on 05/27, 1 bag Monitor H&H Hypocalcemia Ionized yaquelin decreased PTH low, Vit D normal supplement as needed History of aortic dissection: S/P AVR (aortic valve replacement) Mechanical aortic valve Chronic thoracic aortic dissection: Anticoagulated on warfarin: Chronic heart failure with preserved ejection fraction: PMH type I aortic dissection 07/2014 secondary to marked aortopathy s/p emergent aortic valve and root replacement with mechanical valve, with post discharge complication of cardiac tamponade requiring thoracotomy, pericardial window 07/29/2014 Chronic thoracic aortic dissection noted on imaging, stable Chronically anticoagulated on warfarin, follow PT/INR Continue metoprolol, Plavix, Coumadin, atorvastatin Hold torsemide currently as appears on dry side. Reassess volume status Monitor H&H Monitor INR Cardiology consulted as noted above Per cardiology regarding need for surgery and need to have INR reversed: advised "Will need bridge anticoagulation with IV heparin if warfarin to be reversed" at this time will hold warfarin and allow INR to decrease, per cardiology HTN (hypertension): Continue metoprolol, losartan HLD (hyperlipidemia) Continue atorvastatin Anxiety and depression Continue duloxetine History of gastric bypass: Obesity: Stable DVT Prophylaxis: Anticoagulated on warfarin, therapeutic INR currently, holding warfarin for surgery Conditional Code, Wants CPR, defibrillation, medications but does not want intubation or mechanical ventilation as per discussion with pt Dispo: PT/OT recs once stable Admission and Anticipated Discharge Date Admission Date: May 26, 2024 Subjective Deep notes he is much improved. States pain still there but certainly much better. Aware of need to have INR reversed for surgery. Agreeable. Review of Systems Review of Systems: All systems reviewed & are unremarkable except as noted in Subjective Physical Exam Physical Exam: General: improved with movements Psych: Appropriate mood and affect Neuro: improved ability with movements HEENT: NC/AT CV: RRR, mechanical murmur Resp: breath sounds clear but noted murmur heard on the back as well, no increased effort of breathing Abdomen: improved tenderness Extremities: edema in lower extremities Results & Data Results & Data Vital Signs (Past 12 Hours) Vital Signs Temp Pulse Pulse Pulse Resp BP BP 06/01/24 07:23 71 06/01/24 07:04 36.9 C 81 18 110/62 06/01/24 06:16 36.8 C 82 18 132/73 06/01/24 02:57 36.7 C 60 18 118/70 05/31/24 23:24 37.0 C 63 17 106/61 Pulse Ox O2 Del Method 06/01/24 07:23 06/01/24 07:04 99 Room Air 06/01/24 06:16 98 Room Air 06/01/24 02:57 97 Room Air 05/31/24 23:24 97 Room Air (1) Fall Encounter type: initial encounter Qualified Code(s): W19.XXXA - Unspecified fall, initial encounter
--- NOTE | 2024-06-01 11:42 | Cardiology Progress Note ---
Date of Service June 01, 2024 Assessment & Plan (1) Bacteremia: (2) H/O mechanical aortic valve replacement: (3) Complicated UTI (urinary tract infection): (4) Chronic heart failure with preserved ejection fraction: (5) History of aortic dissection: (6) Anemia: (7) Poor dentition: Plan Complex 38 year old male with history of type I aortic dissection in 07/2014 secondary to marked aortopathy status post emergent aortic valve and root replacement with mechanical valve, with post discharge complication of cardiac tamponade requiring thoracotomy, pericardial window 07/29/2014, chronic diastolic heart failure, LBBB, hypertension, dyslipidemia, and obesity s/p gastric bypass. 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 Patient presented to [facility] following a mechanical fall 1.5 weeks prior, with severe acute on chronic back pain, weakness, fevers, and chills. Workup revealed gram-positive bacteremia, possible dental source, and a complicated UTI. Transesophageal echocardiography demonstrated normal mechanical prosthetic aortic valve function without evidence of vegetation. Infectious disease has recommended 2 weeks of antibiotics from first negative blood culture. Patient notes plans for dental surgery morning or Friday afternoon. INR was 3.6 this morning. Coumadin placed on hold. Patient requires IV heparin bridge if warfarin reversed. I spent a total of 36 minutes on the date of service in preparation, delivery, and documentation of the care provided to this patient excluding any time spent in the performance of separately billed services. This visit was a split-shared visit with the substantive portion of the medical decision making performed by the supervising teacher assistant/billing provider. Admission and Anticipated Discharge Date Admission Date: May 26, 2024 Supervising Physician Co-Signing Physician Notes Patient was seen and personally examined. Chart current and past records reviewed assessment and plan as above. Complex 38-year-old male status post type I acute aortic dissection and subsequent aortic valve replacement with mechanical valve. Admitted with back pain but subsequently observed bacteremia found possible dental origin Stable from cardiac standpoint Noted possible plans for dental surgery. Will need bridge anticoagulation with IV heparin Warfarin on hold May need dose of vitamin K in a.m. depending on INR progression I spent a total of 20 minutes on the date of service in preparation, delivery, and documentation of the care provided to this patient exclu 05/31/24 13:45 Pepe Dupont MD Subjective Patient seen and examined. Notes plans for dental extraction morning or Friday afternoon. INR 3.6 this AM. Coumadin placed on hold. Episode of tachypalpitations this AM around 6-6:30. Telemetry: Transient atrial tachycardia, 138 bpm. Sinus/sinus tachycardia. Currently 90 bpm. Patient previously prescribed metoprolol succinate; this was changed to metoprolol tartrate with gastric bypass surgery. Back pain improved. Review of Systems Review of Systems: Complete Review of Systems is as stated above, negative, or noncontributory. Physical Exam Physical Exam: General: A&Ox3. NAD. HENT: Normocephalic. Atraumatic. Eyes: PER. Conjunctiva pink, sclera clear. Neck: Transmitted systolic murmur. No JVD. Heart: Regular. [place] mechanical valve sounds. Grade II systolic ejection murmur. No diastolic murmur. Lungs: Clear to auscultation. Abdomen: +BS. Soft. Nontender. No masses or organomegaly. Extremities: No edema. Limited neurological examination is without focal deficits. Pulses: radial=2/4, posterior tibial=2/4. Results & Data Vital Signs (Past 12 Hours) Vital Signs Temp Pulse Pulse Pulse Resp BP BP 06/01/24 10:53 36.9 C 65 18 106/64 06/01/24 07:23 71 06/01/24 07:04 36.9 C 81 18 110/62 06/01/24 06:16 36.8 C 82 18 132/73 06/01/24 02:57 36.7 C 60 18 118/70 Pulse Ox O2 Del Method 06/01/24 10:53 97 Room Air 06/01/24 07:23 06/01/24 07:04 99 Room Air 06/01/24 06:16 98 Room Air 06/01/24 02:57 97 Room Air Laboratory Results Cardiac Enzymes 06/01/24 Range/Units 06:16 AST 34 (13-39) U/L Coagulation 06/01/24 Range/Units 06:16 PT 35.1 H (9.0-12.0) Seconds CBC 06/01/24 Range/Units 06:16 WBC 7.71 (4.8-10.8) K/ul RBC 4.75 (4.70-6.10) M/uL Hgb 11.3 L (14.0-18.0) g/dl Hct 38.2 L (42.0-52.0) % Plt Count 415 H (130-400) K/uL Neut # (Auto) 5.04 (1.40-6.50) K/uL Lymph # (Auto) 1.87 (1.20-3.40) K/uL [place] # (Auto) 0.62 H (0.11-0.59) K/uL Eos # (Auto) 0.06 (0.00-0.50) K/uL Baso # (Auto) 0.02 (0.00-0.20) K/uL Comprehensive Metabolic Panel 06/01/24 Range/Units 06:16 Sodium 137 (136-145) mmol/L Potassium 4.3 (3.5-5.1) mmol/L Chloride 100 (98-107) mmol/L Carbon Dioxide 32 (21-32) mmol/L BUN 24 H (6-23) mg/dl Creatinine 0.88 (0.6-1.4) mg/dl Glucose 85 (70-99(Fasting)) mg/dl Calcium 9.2 (8.6-10.3) mg/dl AST 34 (13-39) U/L ALT 30 (7-52) U/L Alkaline Phosphatase 86 (34-104) U/L Total Protein 8.0 (6.0-8.3) gm/dl Albumin 3.4 (3.4-5.0) gm/dl Intake and Output 05/31/24 06/01/24 06/01/24 22:59 06:59 14:59 Intake Total 400 / 1380 400 / 1380 Output Total 525 / 925 Balance 400 / 455 -125 / 455 Intake: IV 200 / 400 100 / 400 Ampicillin/Sulbactam Sod 3,000 200 / 400 100 / 400 mg In Sodium Chlor 0.9% Mini-B 100 ml @ 100 mls/hr IV Q6H [facility] Rx#:[id number] Oral 200 / 980 300 / 980 Output: Urine 525 / 925 Other: # Unmeasured Voids 2 Weight 117.2 kg Weight Measurement Method Built in [facility] (6) Anemia Anemia type: unspecified type Qualified Code(s): D64.9 - Anemia, unspecified
[2024-06-02] MEDS: methylPREDNISolone 4 MG TAB PO SCH (06:16)
[2024-06-02 06:53] LABS: Basophils # (auto) 0.04 K/uL (0.00-0.20); Basophils % (auto) 0.5 %; Eosinophils # (auto) 0.07 K/uL (0.00-0.50); Eosinophils % (auto) 0.8 %; Hematocrit (blood only) 37.2 % (42.0-52.0); Hemoglobin 11.1 g/dl (14.0-18.0); Immature Granulocytes # (auto) 0.08 K/uL (0.01-0.20); Immature Granulocytes % (auto) 0.9 %; Lymphocytes # (auto) 1.96 K/uL (1.20-3.40); Lymphocytes % (auto) 22.5 %; Mean Corpuscular Hemoglobin 23.8 pg (25.0-34.0); Mean Corpuscular Hgb Conc 29.8 g/dL (32.0-36.0); Mean Corpuscular Volume 79.8 fL (80.0-100.0); Mean Platelet Volume 9.4 fL (9.4-12.4); Monocytes # (auto) 0.58 K/uL (0.11-0.59); Monocytes % (auto) 6.6 %; Neutrophils % (auto) 68.7 %; Platelet Count 375 K/uL (130-400); RDW Coefficient of Variation 16.8 % (11.5-14.5); RDW Standard Deviation 47.3 fL (36.4-46.3); Red Blood Count 4.66 M/uL (4.70-6.10); White Blood Count 8.73 K/ul (4.8-10.8)
[2024-06-02 07:23] LABS: Albumin Globulin Ratio 0.7 (0.9-2); Albumin Level 3.3 gm/dl (3.4-5.0); BUN Creatinine Ratio 22.4 (10-20); Bilirubin,Total 0.6 mg/dl (0.2-1.0); Calcium 9.1 mg/dl (8.6-10.3); Creatinine Clr Calc Pharmacy 156.7 ml/min; Est GFR (Non-African American) 111.3 ml/min; Globulin 4.5 gm/dl (2.5-4.0); Magnesium 1.9 mg/dl (1.7-2.4); Phosphorus 4.3 mg/dl (2.5-4.9); Potassium 4.6 mmol/L (3.5-5.1); Total Protein 7.8 gm/dl (6.0-8.3)
[2024-06-02 07:26] LABS: INR 2.7 (0.9-1.1); Prothrombin Time 26.6 Seconds (9.0-12.0)
[2024-06-02] MEDS: METOPROLOL TARTRATE 50 MG TAB PO SCH (08:20)
--- NOTE | 2024-06-02 10:11 | Cardiology Progress Note ---
Date of Service June 02, 2024 Assessment & Plan (1) Bacteremia: (2) H/O mechanical aortic valve replacement: (3) Complicated UTI (urinary tract infection): (4) Chronic heart failure with preserved ejection fraction: (5) History of aortic dissection: (6) Anemia: (7) Poor dentition: Plan Complex 38 year old male with history of type I aortic dissection in 07/2014 secondary to marked aortopathy status post emergent aortic valve and root replacement with mechanical valve, with post discharge complication of cardiac tamponade requiring thoracotomy, pericardial window 07/29/2014, chronic diastolic heart failure, LBBB, hypertension, dyslipidemia, and obesity s/p gastric bypass. 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 Patient presented to [facility] following a mechanical fall 1.5 weeks prior, with severe acute on chronic back pain, weakness, fevers, and chills. Workup revealed gram-positive bacteremia, possible dental source, and a complicated UTI. Transesophageal echocardiography demonstrated normal mechanical prosthetic aortic valve function without evidence of vegetation. Infectious disease has recommended 2 weeks of antibiotics from first negative blood culture. Timing of dental surgery pending. Last dose of Coumadin was 10 mg on 05/31/2024. INR 3.6 on 06/01. INR 2.7 on 06/02. Continue to hold Coumadin. Will need heparin bridge when subtherapeutic. Recommend reduction in losartan due to hypotension. Change Lopressor to Toprol XL, prior dosing of 100 mg in the AM and 50 mg in the PM. I spent a total of 19 minutes on the date of service in preparation, delivery, and documentation of the care provided to this patient excluding any time spent in the performance of separately billed services. This visit was a split-shared visit with the substantive portion of the medical decision making performed by the supervising marine cargo inspector/billing provider. Admission and Anticipated Discharge Date Admission Date: May 26, 2024 Supervising Physician Co-Signing Physician Notes Patient was seen and personally examined. Chart current and past records reviewed assessment and plan as above. Complex 38-year-old male status post type I acute aortic dissection and sub sequent aortic valve replacement with mechanical valve. Admitted with back pain but subsequently observed bacteremia found possible dental origin Stable from cardiac standpoint Noted possible plans for dental surgery. Will need bridge anticoagulation with IV heparin Warfarin on hold for appropriate reduction this morning May need dose of vitamin K in a.m. depending on INR progression Do not expect INR to drop to 1.3 Medications adjusted for chronic cardiac concerns as above I spent a total of 20 minutes on the date of service in preparation, delivery, and documentation of the care provided to this patient exclu Subjective Patient seen and examined. Tired, up late last night gambling online. Mild nausea after breakfast this AM, without emesis. INR 2.7 Dental surgery planned this admission, date/time TBD Telemetry: Sinus in the 70's at present, with increased heart rates, sinus tachycardia and PAT previously observed. Metoprolol tartrate dosing reduced due to hypotension. Review of Systems Review of Systems: Complete Review of Systems is as stated above, negative, or noncontributory. Physical Exam Physical Exam: General: A&Ox3. NAD. HENT: Normocephalic. Atraumatic. Eyes: PER. Conjunctiva pink, sclera clear. Neck: Transmitted systolic murmur. No JVD. Heart: Regular. [place] mechanical valve sounds. Grade II systolic ejection murmur. No diastolic murmur. Lungs: Clear to auscultation. Abdomen: +BS. Soft. Nontender. No masses or organomegaly. Extremities: No edema. Limited neurological examination is without focal deficits. Pulses: radial=2/4, posterior tibial=2/4. Results & Data Vital Signs (Past 12 Hours) Vital Signs Temp Pulse Pulse Resp BP BP Pulse Ox 06/02/24 07:26 83 06/02/24 07:19 37.1 C 75 18 104/64 99 06/02/24 03:49 36.8 C 77 18 100/68 98 06/01/24 23:08 37.1 C 61 18 92/55 L 98 O2 Del Method 06/02/24 07:26 06/02/24 07:19 Room Air 06/02/24 03:49 Room Air 06/01/24 23:08 Room Air Laboratory Results Cardiac Enzymes 06/02/24 Range/Units 06:16 AST 37 (13-39) U/L Coagulation 06/02/24 Range/Units 06:16 PT 26.6 H (9.0-12.0) Seconds CBC 06/02/24 Range/Units 06:16 WBC 8.73 (4.8-10.8) K/ul RBC 4.66 L (4.70-6.10) M/uL Hgb 11.1 L (14.0-18.0) g/dl Hct 37.2 L (42.0-52.0) % Plt Count 375 (130-400) K/uL Neut # (Auto) 6.00 (1.40-6.50) K/uL Lymph # (Auto) 1.96 (1.20-3.40) K/uL [place] # (Auto) 0.58 (0.11-0.59) K/uL Eos # (Auto) 0.07 (0.00-0.50) K/uL Baso # (Auto) 0.04 (0.00-0.20) K/uL Comprehensive Metabolic Panel 06/02/24 Range/Units 06:16 Sodium 137 (136-145) mmol/L Potassium 4.6 (3.5-5.1) mmol/L Chloride 101 (98-107) mmol/L Carbon Dioxide 32 (21-32) mmol/L BUN 19 (6-23) mg/dl Creatinine 0.85 (0.6-1.4) mg/dl Glucose 86 (70-99(Fasting)) mg/dl Calcium 9.1 (8.6-10.3) mg/dl AST 37 (13-39) U/L ALT 38 (7-52) U/L Alkaline Phosphatase 86 (34-104) U/L Total Protein 7.8 (6.0-8.3) gm/dl Albumin 3.3 L (3.4-5.0) gm/dl Intake and Output 06/01/24 06/02/24 06/02/24 22:59 06:59 14:59 Intake Total 590 / 1115 425 / 1115 Output Total 2 / 2 Balance 588 / 1113 425 / 1113 Intake: IV 100 / 400 200 / 400 Ampicillin/Sulbactam Sod 3,000 100 / 400 200 / 400 mg In Sodium Chlor 0.9% Mini-B 100 ml @ 100 mls/hr IV Q6H [facility] Rx#:[id number] Oral 490 / 715 225 / 715 Output: # Bowel Movements 2 / 2 Other: # Unmeasured Voids 2 Weight 116.4 kg Weight Measurement Method Built in [facility] (6) Anemia Anemia type: unspecified type Qualified Code(s): D64.9 - Anemia, unspecified
--- NOTE | 2024-06-02 16:57 | Hospitalist Progress Note ---
Date of Service June 02, 2024 Assessment & Plan (1) Fall: (2) Bacteremia: (3) Complicated UTI (urinary tract infection): (4) Ambulatory dysfunction: Plan Mr. Fong is a 38-year-old male with PMH type I aortic dissection 07/2014 secondary to marked aortopathy s/p emergent aortic valve and root replacement with mechanical valve, with post discharge complication of cardiac tamponade requiring thoracotomy, pericardial window 07/29/2014, chronic diastolic heart failure, LBBB, HTN, dyslipidemia, obesity s/p gastric bypass, anxiety, depression, history DDD and others listed below presented to ER with c/o back pain after mechanical fall 1.5 weeks ago and weakness x 3 days with chills, sweats. #Bacteremia 2/2 strep mitis/oralis #Poor dentition #Complicated UTI Pt presenting with chills and sweats, weakness after fall at home urine culture grew Klebsiella Blood Cx x 2 sets (02/04) 05/26: grew strep mitis/oralis Repeat Blood Cx 2 sets 05/28 NGTD Was initially on IV Zosyn and Vancomycin Infectious Disease consulted for further recs, appreciate recs. recommended/stated the following: -Recommend switching Vancomycin to Unasyn 3g q6 IV for now. - Anticipate 2 weeks of IV antibiotics from first negative blood culture Cardiology consulted in setting of bacteremia and Hx of mech valve -TTE without endocarditis -RAHEL on 05/28 without endocarditis as well Source of bacteremia likely dental, OMFS Dr Eubanks consulted. Appreciate further recs -will need INR reversed to 1.3 for surgery--discussed with Dr. Eubanks, will likely not get lower than 1.6 -Scheduled for extraction on 06/04, allow INR to downtrend -Consider Vit K in am with heparin bridge #Back pain #Fall #Degenerative Disc Disease CT Head: No acute intracranial hemorrhage, no evidence of acute territorial infarction or other acute intracranial disease process. CT C-Spine: No acute fracture CT Chest & Thoracic spine: No acute posttraumatic intrathoracic abnormality.No acute fracture or pneumothorax identified. Again seen is a Type A thoracic aortic dissection with postsurgical change as above. The postoperative appearance is likely unchanged from the 09/08/[address] lumbar spine: No evidence of acute abnormality and in particular no evidence of acute fracture. CT abd/pelvis:No evidence of acute abnormality and in particular no evidence of acute fracture. Chronic aortic dissection is unchanged. Status post cholecystomy. CT hip:No fracture or dislocation within the right hip. MRI Spine noting "Degenerative changes as above, most pronounced at L4-L5 and L5-S1. Edema and enhancement involving the L4-L5 facets on the right, likely degenerative/reactive." In ER given Flexeril and IV Tylenol with reported some improvement of back pain Scheduled IV Tylenol, oxycodone, Dilaudid, lidocaine patch as needed for pain Flexeril as needed for muscle spasm Ortho spine consulted appreciate recs Pain Management consulted, appreciate recs -completed brief steriod burst PT/OT: home #Iron deficiency Anemia Denies CP, SOB, melena, hematochezia Hgb: 8.8. Baseline Hgb: 12 Obtain Hemoccult stool Anemia labs noting iron deficiency anemia On warfarin chronically Protonix twice daily Avoid NSAIDs May need to consider GI consult if positive Hemoccult s/p IV Venofer 200mg on 05/27, 1 bag Monitor H&H #Hypocalcemia Ionized yaquelin decreased PTH low, Vit D normal supplement as needed #S/P AVR (aortic valve replacement) #Mechanical aortic valve #Chronic thoracic aortic dissection: #Anticoagulated on warfarin: #Chronic heart failure with preserved ejection fraction: PMH type I aortic dissection 07/2014 secondary to marked aortopathy s/p emergent aortic valve and root replacement with mechanical valve, with post discharge complication of cardiac tamponade requiring thoracotomy, pericardial window 07/29/2014 Chronic thoracic aortic dissection noted on imaging, stable Chronically anticoagulated on warfarin, follow PT/INR Continue metoprolol, Plavix, atorvastatin Hold torsemide currently as appears on dry side. Reassess volume status Monitor H&H Monitor INR Cardiology consulted as noted above Per cardiology regarding need for surgery and need to have INR reversed: advised "Will need bridge anticoagulation with IV heparin if warfarin to be reversed" at this time will hold warfarin and allow INR to decrease, per cardiology #HTN (hypertension): Continue metoprolol, losartan #HLD (hyperlipidemia) Continue atorvastatin #Anxiety and depression Continue duloxetine #History of gastric bypass: #Obesity: Stable DVT Prophylaxis: Anticoagulated on warfarin, therapeutic INR currently, holding warfarin for surgery Conditional Code, Wants CPR, defibrillation, medications but does not want intubation or mechanical ventilation as per discussion with pt Dispo: PT/OT recs once stable Admission and Anticipated Discharge Date Admission Date: May 26, 2024 Subjective NAEO Reports feeling well and much improved since admission Transient episode of nausea this am, but otherwise able to eat breakfast and no other acute concerns Physical Exam Constitutional: WD/WN, vitals as above Respiratory: normal respiratory effort, lungs clear to auscultation Cardiovascular: loud click, SILVIA+ Gastrointestinal (Abdomen): normal bowel sounds, soft, nontender, no hepatosplenomegaly Musculoskeletal: no cyanosis or clubbing, extremities motor strength 5/5 Results & Data Results & Data Vital Signs (Past 12 Hours) Vital Signs Temp Pulse Pulse Resp BP BP Pulse Ox 06/02/24 16:47 36.6 C 89 18 114/65 97 06/02/24 14:16 69 06/02/24 11:34 36.7 C 66 18 129/73 96 06/02/24 07:26 83 06/02/24 07:19 37.1 C 75 18 104/64 99 O2 Del Method 06/02/24 16:47 Room Air 06/02/24 14:16 06/02/24 11:34 Room Air 06/02/24 07:26 06/02/24 07:19 Room Air Laboratory Results Short CBC 06/02/24 Range/Units 06:16 WBC 8.73 (4.8-10.8) K/ul Hgb 11.1 L (14.0-18.0) g/dl Hct 37.2 L (42.0-52.0) % Plt Count 375 (130-400) K/uL BMP 06/02/24 06:16 Sodium 137 Potassium 4.6 Chloride 101 Carbon Dioxide 32 BUN 19 Creatinine 0.85 Glucose 86 Calcium 9.1 Liver Function 06/02/24 Range/Units 06:16 Total Bilirubin 0.6 (0.2-1.0) mg/dl AST 37 (13-39) U/L ALT 38 (7-52) U/L Alkaline Phosphatase 86 (34-104) U/L Albumin 3.3 L (3.4-5.0) gm/dl Medications Administered Home Medications Medication Instructions Recorded Confirmed Last Taken clopidogrel 75 mg tablet 75 mg PO QAM 11/12/18 05/26/24 05/25/24 duloxetine 60 mg capsule,delayed 60 mg PO DAILY 11/12/18 05/26/24 05/25/24 release warfarin 5 mg tablet See Rx Instructions .Route .COMPLEX 12/06/19 05/26/24 05/25/24 duloxetine 30 mg capsule,delayed 30 mg PO DAILY 03/11/21 05/26/24 05/25/24 release acetaminophen 500 mg tablet 1,000 mg PO Q6H PRN Pain 04/08/21 05/26/24 05/25/24 (Tylenol Extra Strength) multivitamin 1 tab PO DAILY 04/20/21 05/26/24 05/25/24 atorvastatin 10 mg tablet 10 mg PO HS 05/26/24 05/26/24 05/25/24 cholecalciferol (vitamin D3) 125 125 mcg PO DAILY 05/26/24 05/26/24 05/25/24 mcg (5,000 unit) tablet (Vitamin D3) losartan 50 mg tablet 50 mg PO BID 05/26/24 05/26/24 05/25/24 metoprolol tartrate 25 mg tablet 75 mg PO BID 05/26/24 05/26/24 05/25/24 Active Medications Generic Name Dose Route Start Last Admin [facility] Reason Stop Dose Admin Atorvastatin Calcium 10 mg 05/26/24 21:00 06/01/24 20:53 Atorvastatin 10 Mg Tab PO 06/25/24 20:59 10 mg HS VIRGEN Administration Clopidogrel Bisulfate 75 mg 05/27/24 09:00 06/02/24 09:58 Clopidogrel Bisulfate 75 Mg Tab PO 06/26/24 08:59 Not Given QAM VIRGEN Cyclobenzaprine HCl 10 mg 05/26/24 14:49 06/02/24 12:00 Cyclobenzaprine Hcl 10 Mg Tab PO 06/25/24 14:48 10 mg TID PRN Administration Muscle Spasm Duloxetine HCl 30 mg 05/27/24 09:00 06/02/24 08:19 Duloxetine Hcl 30 Mg Cap PO 06/26/24 08:59 30 mg DAILY VIRGEN Administration Duloxetine HCl 60 mg 05/27/24 09:00 06/02/24 08:19 Duloxetine Hcl 60 Mg Cap PO 06/26/24 08:59 60 mg DAILY VIRGEN Administration Hydromorphone HCl 0.5 mg 05/26/24 12:13 06/02/24 12:00 Hydromorphone Inj 0.5 Mg/0.5 Ml Syr IV 06/09/24 12:12 0.5 mg Q6H PRN Administration Severe Pain (Scale 7, 8, 9,10) Pantoprazole Sodium 40 mg/ 10 mls @ 5 mls/min 05/26/24 21:00 06/02/24 08:21 Syringe IV 06/25/24 20:59 5 mls/min BID VIRGEN Administration Ampicillin Sodium/Sulbactam 100 mls @ 100 mls/hr 05/28/24 17:00 06/02/24 12:46 Sodium 3,000 mg/ Sodium IV 06/11/24 16:59 Infused Chloride Q6H VIRGEN Infusion Lidocaine 1 patch 05/27/24 17:30 06/02/24 08:20 Lidocaine 5% 1 Patch TD 06/26/24 17:29 1 patch QAM VIRGEN Administration Miscellaneous 1 each 05/27/24 21:00 06/01/24 20:54 Remove Lidoderm Patch N/A 06/26/24 20:59 1 each DAILY@2100 VIRGEN Administration Multivitamins 1 tab 05/27/24 09:00 06/02/24 08:20 Multivitamin Tab PO 06/26/24 08:59 1 tab DAILY VIRGEN Administration Oxycodone HCl 7.5 mg 05/27/24 17:19 06/02/24 00:07 Oxycodone Hcl Ir 5 Mg Tab (Immediate Release) PO 06/09/24 14:48 7.5 mg Q6H PRN Administration Moderate Pain (Scale 4, 5, 6) Vitamin D 125 mcg 05/27/24 09:00 06/02/24 08:19 Cholecalciferol 125 Mcg (5,000 Units) Tab PO 06/26/24 08:59 125 mcg DAILY VIRGEN Administration Warfarin Sodium 15 mg 05/26/24 16:00 05/30/24 16:24 Warfarin Sod 5 Mg Tab PO 06/25/24 15:59 15 mg [id number]@1600 VIRGEN Administration Warfarin Sodium 10 mg 05/28/24 16:00 05/31/24 16:02 Warfarin Sod 10 Mg Tab PO 06/27/24 15:59 10 mg MoFr@1600 VIRGEN Administration (1) Fall Encounter type: initial encounter Qualified Code(s): W19.XXXA - Unspecified fall, initial encounter
[2024-06-02] MEDS: LOSARTAN POTASSIUM 25 MG TAB PO SCH (21:53)
[2024-06-02] MEDS: METOPROLOL SUCC 50MG EXT REL TAB PO SCH (21:54)
--- NOTE | 2024-06-02 22:14 | Oral/Maxillofacial Progress Nt ---
Date of Service June 02, 2024 I was able to get OR time for June 04 in the afternoon for the removal of the fractured and abscessed teeth. Cardiology is working on regulating the INR and bridging with Heparin in anticipation of the surgery for Friday afternoon. The consent is signed and Deep understands the need for the extractions and importance of removing the abscessed teeth. The following teeth are grossly fractured, decayed and associated with periapically infection and radiolucent apical lesions. Teeth needing removal are as follows---3,5,13,16,17,20,32 The other teeth have superficial carious lesions and should be maintained for chewing and future restorative dental care. Given the heart valve replacement a bolus of 3 grams of Ancef IV certification and selection specialist to the OR will be given unless cardiology would request a different antibiotic and dosing. Assessment & Plan Admission and Anticipated Discharge Date Admission Date: May 26, 2024 Results & Data Vital Signs (Past 12 Hours) Vital Signs Temp Pulse Pulse Resp BP Pulse Ox O2 Del Method 06/02/24 20:30 36.8 C 77 20 110/70 98 Room Air 06/02/24 16:47 36.6 C 89 18 114/65 97 Room Air 06/02/24 14:16 69 06/02/24 11:34 36.7 C 66 18 129/73 96 Room Air PG Care Time/CCT Total # of Minutes Spent Total Time Spent with Patient: Total time spent is greater than 50% in coordination of care (as documented) at patient's floor/unit and/or counseling patient: Coding Level of Care Code None
[2024-06-03 07:33] LABS: Hematocrit (blood only) 35.1 % (42.0-52.0); Hemoglobin 10.6 g/dl (14.0-18.0); Mean Corpuscular Hemoglobin 23.5 pg (25.0-34.0); Mean Corpuscular Hgb Conc 30.2 g/dL (32.0-36.0); Mean Corpuscular Volume 77.7 fL (80.0-100.0); Mean Platelet Volume 9.8 fL (9.4-12.4); Platelet Count 348 K/uL (130-400); RDW Coefficient of Variation 17.2 % (11.5-14.5); RDW Standard Deviation 47.2 fL (36.4-46.3); Red Blood Count 4.52 M/uL (4.70-6.10); White Blood Count 7.77 K/ul (4.8-10.8)
[2024-06-03 07:59] LABS: BUN Creatinine Ratio 22.9 (10-20); Calcium 8.9 mg/dl (8.6-10.3); Creatinine Clr Calc Pharmacy 160.2 ml/min; Est GFR (African American) 130.3 ml/min; Est GFR (Non-African American) 112.4 ml/min; Magnesium 1.8 mg/dl (1.7-2.4); Phosphorus 4.2 mg/dl (2.5-4.9); Potassium 3.9 mmol/L (3.5-5.1)
[2024-06-03 08:08] LABS: INR 1.9 (0.9-1.1); Prothrombin Time 19.6 Seconds (9.0-12.0)
[2024-06-03] MEDS: MAGNESIUM SULFATE / D5W 1 GM/100 ML BAG IV ONE (09:52)
[2024-06-03] MEDS: METOPROLOL SUCC 50MG EXT REL TAB PO SCH (09:55)
--- NOTE | 2024-06-03 10:03 | Hospitalist Progress Note ---
Date of Service June 03, 2024 Assessment & Plan (1) Fall: (2) Bacteremia: (3) Complicated UTI (urinary tract infection): (4) Ambulatory dysfunction: Plan Mr. Fong is a 38-year-old male with PMH type I aortic dissection 07/2014 secondary to marked aortopathy s/p emergent aortic valve and root replacement with mechanical valve, with post discharge complication of cardiac tamponade requiring thoracotomy, pericardial window 07/29/2014, chronic diastolic heart failure, LBBB, HTN, dyslipidemia, obesity s/p gastric bypass, anxiety, depression, history DDD and others listed below presented to ER with c/o back pain after mechanical fall 1.5 weeks ago and weakness x 3 days with chills, sweats. #Bacteremia 2/2 strep mitis/oralis #Poor dentition #Complicated UTI Pt presenting with chills and sweats, weakness after fall at home urine culture grew Klebsiella Blood Cx x 2 sets (02/04) 05/26: grew strep mitis/oralis Repeat Blood Cx 2 sets 05/28 NGTD Was initially on IV Zosyn and Vancomycin Infectious Disease consulted for further recs, appreciate recs. recommended/stated the following: -Recommend switching Vancomycin to Unasyn 3g q6 IV for now. - Anticipate 2 weeks of IV antibiotics from first negative blood culture Cardiology consulted in setting of bacteremia and Hx of mech valve -TTE without endocarditis -RAHEL on 05/28 without endocarditis as well Source of bacteremia likely dental, OMFS Dr Eubanks consulted. Appreciate further recs -will need INR reversed to 1.3 for surgery--discussed with Dr. Eubanks, will likely not get lower than 1.6 -Scheduled for extraction on 06/04, allow INR to downtrend -INR 1.9 this am, start heparin drip while subtherapeutic ABX EOT 2 weeks from first negative blood culture per ID recs. EOT 06/08 Will need 1 week of IV abx, midline to be placed attempt for over weekend DC #Back pain #Fall #Degenerative Disc Disease CT Head: No acute intracranial hemorrhage, no evidence of acute territorial infarction or other acute intracranial disease process. CT C-Spine: No acute fracture CT Chest & Thoracic spine: No acute posttraumatic intrathoracic abnormality.No acute fracture or pneumothorax identified. Again seen is a Type A thoracic aortic dissection with postsurgical change as above. The postoperative appearance is likely unchanged from the 09/08/[address] lumbar spine: No evidence of acute abnormality and in particular no evidence of acute fracture. CT abd/pelvis:No evidence of acute abnormality and in particular no evidence of acute fracture. Chronic aortic dissection is unchanged. Status post cholecystomy. CT hip:No fracture or dislocation within the right hip. MRI Spine noting "Degenerative changes as above, most pronounced at L4-L5 and L5-S1. Edema and enhancement involving the L4-L5 facets on the right, likely degenerative/reactive." In ER given Flexeril and IV Tylenol with reported some improvement of back pain Scheduled IV Tylenol, oxycodone, Dilaudid, lidocaine patch as needed for pain Flexeril as needed for muscle spasm Ortho spine consulted appreciate recs Pain Management consulted, appreciate recs -completed brief steroid burst -Concerns for increased pain, discussed medrol dose jorge luis upon discharge PT/OT: home #Iron deficiency Anemia Denies CP, SOB, melena, hematochezia Hgb: 8.8. Baseline Hgb: 12 Obtain Hemoccult stool Anemia labs noting iron deficiency anemia On warfarin chronically Protonix twice daily Avoid NSAIDs May need to consider GI consult if positive Hemoccult s/p IV Venofer 200mg on 05/27, 1 bag Monitor H&H #Hypocalcemia Ionized yaquelin decreased PTH low, Vit D normal supplement as needed #S/P AVR (aortic valve replacement) #Mechanical aortic valve #Chronic thoracic aortic dissection: #Anticoagulated on warfarin: #Chronic heart failure with preserved ejection fraction: PMH type I aortic dissection 07/2014 secondary to marked aortopathy s/p emergent aortic valve and root replacement with mechanical valve, with post discharge complication of cardiac tamponade requiring thoracotomy, pericardial window 07/29/2014 Chronic thoracic aortic dissection noted on imaging, stable Chronically anticoagulated on warfarin, follow PT/INR Continue metoprolol, Plavix, atorvastatin Hold torsemide currently as appears on dry side. Reassess volume status Monitor H&H Monitor INR Cardiology consulted as noted above Per cardiology regarding need for surgery and need to have INR reversed: advised "Will need bridge anticoagulation with IV heparin if warfarin to be reversed" at this time will hold warfarin and allow INR to decrease, per cardiology -Heparin bridge started today #HTN (hypertension): Continue metoprolol, losartan #HLD (hyperlipidemia) Continue atorvastatin #Anxiety and depression Continue duloxetine #History of gastric bypass: #Obesity: Stable DVT Prophylaxis: Anticoagulated on warfarin, INR 1.9, start heparin drip Conditional Code, Wants CPR, defibrillation, medications but does not want intubation or mechanical ventilation as per discussion with pt Dispo: PT/OT home Admission and Anticipated Discharge Date Admission Date: May 26, 2024 Subjective NAEO Reports the sensation of sciatica returning down right leg, but otherwise no acute concerns. States that he is ready and hopeful to get home over the weekend and is familiar with lovenox bridging Physical Exam Constitutional: WD/WN, vitals as above Respiratory: normal respiratory effort, lungs clear to auscultation Cardiovascular: loud click with SILVIA Gastrointestinal (Abdomen): normal bowel sounds, soft, nontender, no hepatosplenomegaly Musculoskeletal: no cyanosis or clubbing, extremities motor strength 5/5 Results & Data Results & Data Vital Signs (Past 12 Hours) Vital Signs Temp Pulse Pulse Resp BP Pulse Ox O2 Del Method 06/03/24 08:12 36.6 C 68 18 107/69 99 Room Air 06/03/24 03:39 36.5 C 77 20 126/76 97 Room Air 06/02/24 23:18 36.7 C 76 18 106/63 96 Room Air 06/02/24 23:04 76 Laboratory Results Short CBC 06/03/24 Range/Units 06:30 WBC 7.77 (4.8-10.8) K/ul Hgb 10.6 L (14.0-18.0) g/dl Hct 35.1 L (42.0-52.0) % Plt Count 348 (130-400) K/uL BMP 06/03/24 06:30 Sodium 137 Potassium 3.9 Chloride 102 Carbon Dioxide 29 BUN 19 Creatinine 0.83 Glucose 85 Calcium 8.9 Medications Administered Home Medications Medication Instructions Recorded Confirmed Last Taken clopidogrel 75 mg tablet 75 mg PO QAM 11/12/18 05/26/24 05/25/24 duloxetine 60 mg capsule,delayed 60 mg PO DAILY 11/12/18 05/26/24 05/25/24 release warfarin 5 mg tablet See Rx Instructions .Route .COMPLEX 12/06/19 05/26/24 05/25/24 duloxetine 30 mg capsule,delayed 30 mg PO DAILY 03/11/21 05/26/24 05/25/24 release acetaminophen 500 mg tablet 1,000 mg PO Q6H PRN Pain 04/08/21 05/26/24 05/25/24 (Tylenol Extra Strength) multivitamin 1 tab PO DAILY 04/20/21 05/26/24 05/25/24 atorvastatin 10 mg tablet 10 mg PO HS 05/26/24 05/26/24 05/25/24 cholecalciferol (vitamin D3) 125 125 mcg PO DAILY 05/26/24 05/26/24 05/25/24 mcg (5,000 unit) tablet (Vitamin D3) losartan 50 mg tablet 50 mg PO BID 05/26/24 05/26/24 05/25/24 metoprolol tartrate 25 mg tablet 75 mg PO BID 05/26/24 05/26/24 05/25/24 Active Medications Generic Name Dose Route Start Last Admin Trade Name Freq PRN Reason Stop Dose Admin Atorvastatin Calcium 10 mg 05/26/24 21:00 06/02/24 21:54 Atorvastatin 10 Mg Tab PO 06/25/24 20:59 10 mg HS VIRGEN Administration Clopidogrel Bisulfate 75 mg 05/27/24 09:00 06/02/24 09:58 Clopidogrel Bisulfate 75 Mg Tab PO 06/26/24 08:59 Not Given QAM VIRGEN Cyclobenzaprine HCl 10 mg 05/26/24 14:49 06/03/24 06:27 Cyclobenzaprine Hcl 10 Mg Tab PO 06/25/24 14:48 10 mg TID PRN Administration Muscle Spasm Duloxetine HCl 30 mg 05/27/24 09:00 06/02/24 08:19 Duloxetine Hcl 30 Mg Cap PO 06/26/24 08:59 30 mg DAILY VIRGEN Administration Duloxetine HCl 60 mg 05/27/24 09:00 06/02/24 08:19 Duloxetine Hcl 60 Mg Cap PO 06/26/24 08:59 60 mg DAILY VIRGEN Administration Hydromorphone HCl 0.5 mg 05/26/24 12:13 06/03/24 06:27 Hydromorphone Inj 0.5 Mg/0.5 Ml Syr IV 06/09/24 12:12 0.5 mg Q6H PRN Administration Severe Pain (Scale 7, 8, 9,10) Pantoprazole Sodium 40 mg/ 10 mls @ 5 mls/min 05/26/24 21:00 06/02/24 21:55 Syringe IV 06/25/24 20:59 5 mls/min BID VIRGEN Administration Ampicillin Sodium/Sulbactam 100 mls @ 100 mls/hr 05/28/24 17:00 06/03/24 06:09 Sodium 3,000 mg/ Sodium IV 06/11/24 16:59 Infused Chloride Q6H VIRGEN Infusion Magnesium Sulfate/Dextrose 1 gm in 100 mls @ 50 mls/hr 06/03/24 08:14 06/03/24 09:52 Magnesium Sulfate / D5w IV 06/03/24 10:13 50 mls/hr ONE ONE Administration Lidocaine 1 patch 05/27/24 17:30 06/02/24 08:20 Lidocaine 5% 1 Patch TD 06/26/24 17:29 1 patch QAM VIRGEN Administration Losartan Potassium 25 mg 06/02/24 21:00 06/02/24 21:53 Losartan Potassium 25 Mg Tab PO 07/02/24 20:59 25 mg BID VIRGEN Administration Metoprolol Succinate 50 mg 06/02/24 21:00 06/02/24 21:54 Metoprolol Succ 50mg Ext Rel Tab PO 07/02/24 20:59 50 mg QPM VIRGEN Administration Miscellaneous 1 each 05/27/24 21:00 06/02/24 21:55 Remove Lidoderm Patch N/A 06/26/24 20:59 1 each DAILY@2100 VIRGEN Administration Multivitamins 1 tab 05/27/24 09:00 06/02/24 08:20 Multivitamin Tab PO 06/26/24 08:59 1 tab DAILY VIRGEN Administration Oxycodone HCl 7.5 mg 05/27/24 17:19 06/02/24 00:07 Oxycodone Hcl Ir 5 Mg Tab (Immediate Release) PO 06/09/24 14:48 7.5 mg Q6H PRN Administration Moderate Pain (Scale 4, 5, 6) Vitamin D 125 mcg 05/27/24 09:00 06/02/24 08:19 Cholecalciferol 125 Mcg (5,000 Units) Tab PO 06/26/24 08:59 125 mcg DAILY VIRGEN Administration Warfarin Sodium 15 mg 05/26/24 16:00 05/30/24 16:24 Warfarin Sod 5 Mg Tab PO 06/25/24 15:59 15 mg [id number]@1600 VIRGEN Administration Warfarin Sodium 10 mg 05/28/24 16:00 05/31/24 16:02 Warfarin Sod 10 Mg Tab PO 06/27/24 15:59 10 mg MoFr@1600 VIRGEN Administration (1) Fall Encounter type: initial encounter Qualified Code(s): W19.XXXA - Unspecified fall, initial encounter
[2024-06-03] MEDS: Heparin IV Adult Wt-Based Low-Dose *NO* INITIAL Bolus Protocol IV STA (10:10)
[2024-06-03] MEDS: HEPARIN SODIUM/DEXTROSE 25,000 UNITS/500 ML BAG IV SCH (10:10)
[2024-06-03 10:31] LABS: Basophils # (auto) 0.02 K/uL (0.00-0.20); Basophils % (auto) 0.3 %; Eosinophils # (auto) 0.12 K/uL (0.00-0.50); Eosinophils % (auto) 1.6 %; Hematocrit (blood only) 32.2 % (42.0-52.0); Hemoglobin 9.9 g/dl (14.0-18.0); Immature Granulocytes # (auto) 0.03 K/uL (0.01-0.20); Immature Granulocytes % (auto) 0.4 %; Lymphocytes # (auto) 1.54 K/uL (1.20-3.40); Lymphocytes % (auto) 20.1 %; Mean Corpuscular Hemoglobin 23.7 pg (25.0-34.0); Mean Corpuscular Hgb Conc 30.7 g/dL (32.0-36.0); Mean Corpuscular Volume 77.2 fL (80.0-100.0); Mean Platelet Volume 9.5 fL (9.4-12.4); Monocytes # (auto) 0.63 K/uL (0.11-0.59); Monocytes % (auto) 8.2 %; Neutrophils # (auto) 5.31 K/uL (1.40-6.50); Neutrophils % (auto) 69.4 %; Platelet Count 295 K/uL (130-400); RDW Coefficient of Variation 17.1 % (11.5-14.5); RDW Standard Deviation 46.5 fL (36.4-46.3); Red Blood Count 4.17 M/uL (4.70-6.10); White Blood Count 7.65 K/ul (4.8-10.8)
--- NOTE | 2024-06-03 10:44 | Cardiology Progress Note ---
Date of Service June 03, 2024 Assessment & Plan (1) Bacteremia: (2) H/O mechanical aortic valve replacement: (3) Complicated UTI (urinary tract infection): (4) Chronic heart failure with preserved ejection fraction: (5) History of aortic dissection: (6) Anemia: (7) Poor dentition: Plan Complex 38 year old male with history of type I aortic dissection in 07/2014 secondary to marked aortopathy status post emergent aortic valve and root replacement with mechanical valve, with post discharge complication of cardiac tamponade requiring thoracotomy, pericardial window 07/29/2014, chronic diastolic heart failure, LBBB, hypertension, dyslipidemia, and obesity s/p gastric bypass. 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 Patient presented to [facility] following a mechanical fall 1.5 weeks prior, with severe acute on chronic back pain, weakness, fevers, and chills. Workup revealed gram-positive bacteremia, possible dental source, and a complicated UTI. Transesophageal echocardiography demonstrated normal mechanical prosthetic aortic valve function without evidence of vegetation. Infectious disease has recommended 2 weeks of antibiotics from first negative blood culture. Scheduled for the OR on 06/04/2024 at 13:00. Last dose of Coumadin was 10 mg on 05/31/2024. INR 3.6 on 06/01. INR 2.7 on 06/02. INR 1.9 on 06/03/2024. On IV heparin appropriately. Reduce losartan dosing further due to hypotension. Lopressor changed to Toprol XL this admission. I spent a total of 21 minutes on the date of service in preparation, delivery, and documentation of the care provided to this patient excluding any time spent in the performance of separately billed services. This visit was a split-shared visit with the substantive portion of the medical decision making performed by the supervising print color operator/billing provider. Admission and Anticipated Discharge Date Admission Date: May 26, 2024 Supervising Physician Co-Signing Physician Notes Patient was seen and personally examined. Chart current and past records reviewed assessment and plan as above. Complex 38-year-old male status post type I acute aortic dissection and subsequent aortic valve replacement with mechanical valve. Admitted with back pain but subsequently observed bacteremia found possible dental origin Initiating bridge anticoagulation to dental procedures. Medications being optimized during hospital stay I spent a total of 15 minutes on the date of service in preparation, delivery, and documentation of the care provided to this patient exclu Subjective Patient seen and examined. Chart, medications, and telemetry reviewed. No complaints. Denies chest pain, dyspnea, orthopnea, PND, edema, or palpitations INR 1.9. IV heparin initiated this AM. Scheduled for the OR on 06/04/2024 at 13:00 Telemetry: Sinus in the 70's to 90's with occasional ectopy. Review of Systems Review of Systems: Complete Review of Systems is as stated above, negative, or noncontributory. Physical Exam Physical Exam: General: A&Ox3. NAD. HENT: Normocephalic. Atraumatic. Eyes: PER. Conjunctiva pink, sclera clear. Neck: Transmitted systolic murmur. No JVD. Heart: Regular. [place] mechanical valve sounds. Grade II systolic ejection murmur. No diastolic murmur. Lungs: Clear to auscultation. Abdomen: +BS. Soft. Nontender. No masses or organomegaly. Extremities: No edema. Limited neurological examination is without focal deficits. Pulses: radial=2/4, posterior tibial=2/4. Results & Data Vital Signs (Past 12 Hours) Vital Signs Temp Pulse Pulse Resp BP Pulse Ox O2 Del Method 06/03/24 09:30 70 103/58 L 06/03/24 08:12 36.6 C 68 18 107/69 99 Room Air 06/03/24 03:39 36.5 C 77 20 126/76 97 Room Air 06/02/24 23:18 36.7 C 76 18 106/63 96 Room Air 06/02/24 23:04 76 Laboratory Results Coagulation 06/03/24 Range/Units 06:30 PT 19.6 H (9.0-12.0) Seconds CBC 06/03/24 06/03/24 Range/Units 06:30 10:02 WBC 7.77 7.65 (4.8-10.8) K/ul RBC 4.52 L 4.17 L (4.70-6.10) M/uL Hgb 10.6 L 9.9 L (14.0-18.0) g/dl Hct 35.1 L 32.2 L (42.0-52.0) % Plt Count 348 295 (130-400) K/uL Neut # (Auto) 5.31 (1.40-6.50) K/uL Lymph # (Auto) 1.54 (1.20-3.40) K/uL [place] # (Auto) 0.63 H (0.11-0.59) K/uL Eos # (Auto) 0.12 (0.00-0.50) K/uL Baso # (Auto) 0.02 (0.00-0.20) K/uL Comprehensive Metabolic Panel 06/03/24 Range/Units 06:30 Sodium 137 (136-145) mmol/L Potassium 3.9 (3.5-5.1) mmol/L Chloride 102 (98-107) mmol/L Carbon Dioxide 29 (21-32) mmol/L BUN 19 (6-23) mg/dl Creatinine 0.83 (0.6-1.4) mg/dl Glucose 85 (70-99(Fasting)) mg/dl Calcium 8.9 (8.6-10.3) mg/dl Intake and Output 06/02/24 06/03/24 06/03/24 22:59 06:59 14:59 Intake Total 740 / 2315 555 / 2315 Balance 740 / 2308 555 / 2308 Intake: IV 100 / 400 200 / 400 Ampicillin/Sulbactam Sod 3,000 100 / 400 200 / 400 mg In Sodium Chlor 0.9% Mini-B 100 ml @ 100 mls/hr IV Q6H [facility] Rx#:[id number] Oral 640 / 5 / 191 Other: Other Intake Source ICE CHIPS # Unmeasured Voids 1 1 Weight 116 kg Weight Measurement Method Standing Scale (6) Anemia Anemia type: unspecified type Qualified Code(s): D64.9 - Anemia, unspecified
[2024-06-03 10:49] LABS: INR 1.8 (0.9-1.1); Partial Thromboplastin Ratio 1.2; Partial Thromboplastin Time 31 Seconds (21-31)
[2024-06-03] MEDS ORDERED: methylPREDNISolone 4 MG TAB, 6 DAY TAPER PO SCH (11:00)
[2024-06-03] MEDS: HYDROmorphone INJ 1 MG/ML SYRINGE IV STA (11:51)
[2024-06-03] MEDS: methylPREDNISolone 4 MG TAB PO SCH ×2 (11:52→13:25)
[2024-06-03 15:06] LABS: Hematocrit (blood only) 34.6 % (42.0-52.0); Hemoglobin 10.4 g/dl (14.0-18.0); Mean Corpuscular Hemoglobin 23.7 pg (25.0-34.0); Mean Corpuscular Hgb Conc 30.1 g/dL (32.0-36.0); Mean Platelet Volume 9.5 fL (9.4-12.4); Platelet Count 370 K/uL (130-400); RDW Coefficient of Variation 17.2 % (11.5-14.5); RDW Standard Deviation 48.3 fL (36.4-46.3); Red Blood Count 4.38 M/uL (4.70-6.10); White Blood Count 10.06 K/ul (4.8-10.8)
[2024-06-03 15:23] LABS: Albumin Globulin Ratio 0.8 (0.9-2); Albumin Level 3.4 gm/dl (3.4-5.0); Bilirubin,Total 0.7 mg/dl (0.2-1.0); Calcium 9.3 mg/dl (8.6-10.3); Creatinine Clr Calc Pharmacy 156.5 ml/min; Est GFR (Non-African American) 111.3 ml/min; Globulin 4.5 gm/dl (2.5-4.0); Total Protein 7.9 gm/dl (6.0-8.3)
[2024-06-03 15:28] LABS: Troponin I High Sensitivity 5.8 pg/ml (0-20)
[2024-06-03 15:34] LABS: ANTI-Xa, UFH(UnfractionatedHep 0.15 IU/ml (0.3-0.7)
[2024-06-03] MEDS: HEPARIN SOD (PORCINE) 1000 UNIT/ML IV ONE (16:59)
[2024-06-03] MEDS ORDERED: dexAMETHasone**PF** 10 MG/ML VIAL IV ONE (17:07)
[2024-06-03 17:56] LABS: ANTI-Xa, UFH(UnfractionatedHep 0.17 IU/ml (0.3-0.7)
[2024-06-03] MEDS: dexAMETHasone 10 MG in SYRINGE 0 ML IV ONE (18:00)
[2024-06-03] MEDS ORDERED: HEPARIN SOD (PORCINE) 1000 UNIT/ML IV ONE (18:04)
[2024-06-03] MEDS: HEPARIN IV BOLUS 4,000 UNITS in SYRINGE 0 ML IV ONE (18:41)
[2024-06-03] MEDS: OPTIRAY 320 125ml IV ONE (19:42)
--- NOTE | 2024-06-03 21:52 | CT Scan Report ---
Exam(s): CTA ABDOMEN + PELVIS W/WO Contrast IV Amt: 118 ml opti 320 EXAM: CT Angiography Abdomen and Pelvis Without and With Intravenous Contrast CLINICAL HISTORY: Reason for exam: pain, diaphoresis, known dissection. TECHNIQUE: Axial computed tomographic angiography images of the abdomen and pelvis without and with intravenous contrast. CTDI is 26.27 mGy and DLP is 1373. 92 mGy-cm. Automated exposure control was utilized for the study. A dose lowering technique was utilized adhering to the principles of ALARA. MIP reconstructed images were created and reviewed. CONTRAST: Patient received 118 ml opti 320 of IV contrast COMPARISON: 05/26/2024 FINDINGS: VASCULATURE: Aorta: Dissection involving the descending thoracic aorta extending through the abdominal aorta and into the right common iliac artery. The celiac artery left renal artery, and superior mesenteric arteries all arise from the true lumen. The right renal artery arises from the false lumen. There is equilibrium between the true and false lumen in terms of contrast enhancement. The inferior mesenteric artery arises from the true lumen. Celiac trunk and mesenteric arteries: No acute findings. No occlusion or significant stenosis. Renal arteries: No acute findings. No occlusion or significant stenosis. Iliac arteries: No acute findings. No occlusion or significant stenosis. Lung bases: Lung bases are clear. No consolidation. ABDOMEN: Liver: Unremarkable. No mass. Gallbladder and bile ducts: Postoperative changes prior cholecystectomy. No ductal dilation. Pancreas: Unremarkable. No ductal dilation. No mass. Spleen: Unremarkable. No splenomegaly. Adrenals: Unremarkable. No mass. Kidneys and ureters: Unremarkable. No obstructing stones. No hydronephrosis. No solid mass. Stomach and bowel: Postoperative changes of the stomach. Postoperative changes of the colon. No obstruction. No mucosal thickening. PELVIS: Appendix: No findings to suggest acute appendicitis. Bladder: Unremarkable. No stones. No mass. Reproductive: Unremarkable as visualized. ABDOMEN and PELVIS: Intraperitoneal space: Unremarkable. No significant fluid collection. No free air. Bones/joints: No acute fracture. No dislocation. Soft tissues: Unremarkable. Lymph nodes: Unremarkable. No enlarged lymph nodes. IMPRESSION: No acute findings in the arteries of the abdomen and pelvis. Stable appearance to abdominal aortic dissection Stable postoperative changes prior cholecystectomy and of the colon and stomach Electronically signed by: Deep Valero MD 06/03/24 21:51 PM
[2024-06-04 00:50] LABS: Appearance Urine Clear (Clear); Bilirubin Urine Negative (Negative); Blood Urine Negative (Negative); Color Urine Yellow; Glucose Urine UA Negative (Negative); Ketones Urine Negative (Negative); Leukocyte Esterase Urine Negative (Negative); Nitrite Urine Negative (Negative); Protein Urine Negative (Negative); Specific Gravity Urine > 1.045 (1.000-1.030); Urobilinogen Urine Negative (Negative)
[2024-06-04 01:38] LABS: ANTI-Xa, UFH(UnfractionatedHep 0.39 IU/ml (0.3-0.7)
[2024-06-04 06:31] LABS: Hematocrit (blood only) 33.2 % (42.0-52.0); Mean Corpuscular Hemoglobin 23.8 pg (25.0-34.0); Mean Corpuscular Hgb Conc 30.1 g/dL (32.0-36.0); Mean Corpuscular Volume 78.9 fL (80.0-100.0); Mean Platelet Volume 9.5 fL (9.4-12.4); Platelet Count 304 K/uL (130-400); RDW Coefficient of Variation 16.8 % (11.5-14.5); RDW Standard Deviation 46.9 fL (36.4-46.3); Red Blood Count 4.21 M/uL (4.70-6.10); White Blood Count 7.94 K/ul (4.8-10.8)
[2024-06-04 06:54] LABS: BUN Creatinine Ratio 24.3 (10-20); Calcium 8.9 mg/dl (8.6-10.3); Creatinine Clr Calc Pharmacy 190.7 ml/min; Est GFR (African American) 139.7 ml/min; Est GFR (Non-African American) 120.6 ml/min; Phosphorus 3.7 mg/dl (2.5-4.9); Potassium 4.3 mmol/L (3.5-5.1)
[2024-06-04] MEDS ORDERED: methylPREDNISolone 4 MG TAB PO SCH ×2 (07:00→21:00)
[2024-06-04 07:08] LABS: INR 1.3 (0.9-1.1); Prothrombin Time 14.2 Seconds (9.0-12.0)
--- NOTE | 2024-06-04 07:11 | Hospitalist Progress Note ---
Date of Service June 04, 2024 Assessment & Plan (1) Fall: (2) Bacteremia: (3) Complicated UTI (urinary tract infection): (4) Ambulatory dysfunction: Plan Mr. Fong is a 38-year-old male with PMH type I aortic dissection 07/2014 secondary to marked aortopathy s/p emergent aortic valve and root replacement with mechanical valve, with post discharge complication of cardiac tamponade requiring thoracotomy, pericardial window 07/29/2014, chronic diastolic heart failure, LBBB, HTN, dyslipidemia, obesity s/p gastric bypass, anxiety, depression, history DDD and others listed below presented to ER with c/o back pain after mechanical fall 1.5 weeks ago and weakness x 3 days with chills, sweats. Patient was noted to have UTI and bacteremia likely from poor dentition. Patient has been off warfarin to allow INR to trend down, and as of this am INR is now 1.3 and patient is on heparin bridge with plans to be held prior to procedure. Plan to place midline for home IV antibiotics and likely lovenox bridge at home. #Bacteremia 2/2 strep mitis/oralis #Poor dentition #Complicated UTI Pt presenting with chills and sweats, weakness after fall at home urine culture grew Klebsiella Blood Cx x 2 sets (02/04) 05/26: grew strep mitis/oralis Repeat Blood Cx 2 sets 05/28 NGTD Was initially on IV Zosyn and Vancomycin Infectious Disease consulted for further recs, appreciate recs. recommended/stated the following: -Recommend switching Vancomycin to Unasyn 3g q6 IV for now. - Anticipate 2 weeks of IV antibiotics from first negative blood culture Cardiology consulted in setting of bacteremia and Hx of mech valve -TTE without endocarditis -RAHEL on 05/28 without endocarditis as well Source of bacteremia likely dental, OMFS Dr Eubanks consulted. Appreciate further recs -will need INR reversed to 1.3 for surgery--discussed with Dr. Eubanks, will likely not get lower than 1.6 -Scheduled for extraction on 06/04, allow INR to downtrend -INR 1.3 this am, heparin to be held prior to procedure Midline consent obtained Will discuss lovenox bridging with Cards prior to d/c (tentative 06/05 if possible) ABX EOT 2 weeks from first negative blood culture per ID recs. EOT 06/08 Will need 1 week of IV abx, midline to be placed attempt for over weekend DC #Back pain #Fall #Degenerative Disc Disease CT Head: No acute intracranial hemorrhage, no evidence of acute territorial infarction or other acute intracranial disease process. CT C-Spine: No acute fracture CT Chest & Thoracic spine: No acute posttraumatic intrathoracic abnormality.No acute fracture or pneumothorax identified. Again seen is a Type A thoracic aortic dissection with postsurgical change as above. The postoperative appearance is likely unchanged from the 09/08/[address] lumbar spine: No evidence of acute abnormality and in particular no evidence of acute fracture. CT abd/pelvis:No evidence of acute abnormality and in particular no evidence of acute fracture. Chronic aortic dissection is unchanged. Status post c holecystomy. CT hip:No fracture or dislocation within the right hip. MRI Spine noting "Degenerative changes as above, most pronounced at L4-L5 and L5-S1. Edema and enhancement involving the L4-L5 facets on the right, likely degenerative/reactive." In ER given Flexeril and IV Tylenol with reported some improvement of back pain Scheduled IV Tylenol, oxycodone, Dilaudid, lidocaine patch as needed for pain Flexeril as needed for muscle spasm Ortho spine consulted appreciate recs Pain Management consulted, appreciate recs -completed brief steroid burst -s/p IV decadron x 1, symptoms resolved PT/OT: home #Iron deficiency Anemia *stable Denies CP, SOB, melena, hematochezia Hgb: 8.8. Baseline Hgb: 12 Obtain Hemoccult stool Anemia labs noting iron deficiency anemia On warfarin chronically Protonix twice daily Avoid NSAIDs May need to consider GI consult if positive Hemoccult s/p IV Venofer 200mg on 05/27, 1 bag #Hypocalcemia Ionized yaquelin decreased PTH low, Vit D normal supplement as needed #S/P AVR (aortic valve replacement) #Mechanical aortic valve #Chronic thoracic aortic dissection: #Anticoagulated on warfarin: #Chronic heart failure with preserved ejection fraction: PMH type I aortic dissection 07/2014 secondary to marked aortopathy s/p emergent aortic valve and root replacement with mechanical valve, with post discharge complication of cardiac tamponade requiring thoracotomy, pericardial window 07/29/2014 Chronic thoracic aortic dissection noted on imaging, stable Chronically anticoagulated on warfarin, follow PT/INR Continue metoprolol, Plavix, atorvastatin Hold torsemide currently as appears on dry side. Reassess volume status Monitor H&H Monitor INR Cardiology consulted as noted above Per cardiology regarding need for surgery and need to have INR reversed: advised "Will need bridge anticoagulation with IV heparin if warfarin to be reversed" at this time will hold warfarin and allow INR to decrease, per cardiology -Heparin bridge started interim, plan to resume post operatively with warfarin as able #HTN (hypertension): Continue metoprolol, losartan #HLD (hyperlipidemia) Continue atorvastatin #Anxiety and depression Continue duloxetine #History of gastric bypass: #Obesity: Stable DVT Prophylaxis: Anticoagulated on warfarin (held), heparin drip bridge Conditional Code, Wants CPR, defibrillation, medications but does not want intubation or mechanical ventilation as per discussion with pt Dispo: PT/OT home Admission and Anticipated Discharge Date Admission Date: May 26, 2024 Subjective 06/03 afternoon/evening marked by intermittent diaphoretic spells, initially thought to be secondary to pain, however, continued despite pain control--work up without any notable findings, symptoms resolved in the evening Heparin marked to be held at 9 Patient reports that episodes of diaphoresis yesterday resolved and he doesn't note any further spell since midnight Patient eager for procedure and noting that he has Midline training this morning He denies any chest pain, palpitations or other acute concerns Physical Exam Constitutional: WD/WN, vitals as above Respiratory: normal respiratory effort, lungs clear to auscultation Cardiovascular: mechanical click, SILVIA+ Gastrointestinal (Abdomen): normal bowel sounds, soft, nontender, no hepatosplenomegaly Musculoskeletal: no cyanosis or clubbing, extremities motor strength 5/5 Results & Data Results & Data Vital Signs (Past 12 Hours) Vital Signs Temp Pulse Pulse Pulse Resp BP Pulse Ox 06/04/24 03:46 36.8 C 69 18 128/66 98 06/04/24 00:00 67 06/03/24 22:09 37.4 C 65 18 129/73 97 06/03/24 19:09 37.1 C 62 16 111/64 96 O2 Del Method 06/04/24 03:46 Room Air 06/04/24 00:00 06/03/24 22:09 Room Air 06/03/24 19:09 Room Air Laboratory Results Short CBC 06/03/24 06/03/24 06/03/24 Range/Units 06:30 10:02 14:45 WBC 7.77 7.65 10.06 (4.8-10.8) K/ul Hgb 10.6 L 9.9 L 10.4 L (14.0-18.0) g/dl Hct 35.1 L 32.2 L 34.6 L (42.0-52.0) % Plt Count 348 295 370 (130-400) K/uL 06/04/24 Range/Units 06:02 WBC 7.94 (4.8-10.8) K/ul Hgb 10.0 L (14.0-18.0) g/dl Hct 33.2 L (42.0-52.0) % Plt Count 304 (130-400) K/uL BMP 06/03/24 06/03/24 06/04/24 06:30 14:45 06:02 Sodium 137 135 L 136 Potassium 3.9 4.0 4.3 Chloride 102 103 104 Carbon Dioxide 29 27 27 BUN 19 17 17 Creatinine 0.83 0.85 0.70 Glucose 85 82 115 H Calcium 8.9 9.3 8.9 Liver Function 06/03/24 Range/Units 14:45 Total Bilirubin 0.7 (0.2-1.0) mg/dl AST 37 (13-39) U/L ALT 44 (7-52) U/L Alkaline Phosphatase 84 (34-104) U/L Albumin 3.4 (3.4-5.0) gm/dl Urine 06/04/24 Range/Units 00:18 Urine Color Yellow Urine Appearance Clear (Clear) Urine pH 6.0 (4.5-7.5) Ur Specific [place] > 1.045 H (1.000-1.030) Urine Protein Negative (Negative) Urine Glucose (UA) Negative (Negative) (1) Fall Encounter type: initial encounter Qualified Code(s): W19.XXXA - Unspecified fall, initial encounter
[2024-06-04] MEDS: LOSARTAN POTASSIUM 25 MG TAB PO SCH (08:52)
--- NOTE | 2024-06-04 09:43 | Cardiology Progress Note ---
Date of Service June 04, 2024 Assessment & Plan (1) Bacteremia: (2) H/O mechanical aortic valve replacement: (3) Complicated UTI (urinary tract infection): (4) Chronic heart failure with preserved ejection fraction: (5) History of aortic dissection: (6) Anemia: (7) Poor dentition: Plan Complex 38 year old male with history of type I aortic dissection in 07/2014 secondary to marked aortopathy status post emergent aortic valve and root replacement with mechanical valve, with post discharge complication of cardiac tamponade requiring thoracotomy, pericardial window 07/29/2014, chronic diastolic heart failure, LBBB, hypertension, dyslipidemia, and obesity s/p gastric bypass. 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 Patient presented to [facility] following a mechanical fall 1.5 weeks prior, with severe acute on chronic back pain, weakness, fevers, and chills. Workup revealed gram-positive bacteremia, probable dental source and suspected etiology to intermittent diaphoresis episodes (or perhaps duloxetine), and a complicated UTI. Transesophageal echocardiography demonstrated normal mechanical prosthetic aortic valve function without evidence of vegetation. Infectious disease has recommended 2 weeks of antibiotics from first negative blood culture. Scheduled for the OR on 06/04/2024 at 13:00. Last dose of Coumadin was 10 mg on 05/31/2024. INR 1.3. On IV heparin. Recommendations: 1. Hold Heparin 2 hours prior to surgery, resuming postoperatively without bolus as soon as determined to be safe. 2. Resume clopidogrel as soon as determined to be safe. 3. Given multiple extractions, anticoagulation issues, and history, recommend ongoing hospitalization x 1-2 days 4. Losartan reduced this admission due to hypotension. 5. Lopressor changed back to Toprol XL this admission. 6. ? Reduction in Duloxetine dosing I spent a total of 26 minutes on the date of service in preparation, delivery, and documentation of the care provided to this patient excluding any time spent in the performance of separately billed services. This visit was a split-shared visit with the substantive portion of the medical decision making performed by the supervising anesthetist/billing provider. Admission and Anticipated Discharge Date Admission Date: May 26, 2024 Supervising Physician Co-Signing Physician Notes Patient was seen and personally examined. Chart current and past records reviewed assessment and plan as above. Complex 38-year-old male status post type I acute aortic dissection and subsequent aortic valve replacement with mechanical valve. Admitted with back pain but subsequently observed bacteremia found possible dental origin Feels well today. Episode of diaphoresis last evening Clinically stable this morning Assessment and plan as well outlined above Cardiology will continue to follow I spent a total of 15 minutes on the date of service in preparation, delivery, and documentation of the care provided to this patient exclu Subjective Patient seen and examined. Chart, medications, and telemetry reviewed. Notes episodes of significant diaphoresis yesterday, none overnight or thus far today. No chest pain, dyspnea, orthopnea, PND, edema, or palpitations Scheduled for dental extractions (x7) and right lower facial I&D by Dr. Eubanks at 13:00 today. Telemetry: Sinus with a first degree AV block, heart rates primarily in the 60's and 70's. Review of Systems Review of Systems: Complete Review of Systems is as stated above, negative, or noncontributory. Physical Exam Physical Exam: General: A&Ox3. NAD. HENT: Normocephalic. Atraumatic. Eyes: PER. Conjunctiva pink, sclera clear. Neck: Transmitted systolic murmur. No JVD. Heart: Regular. [place] mechanical valve sounds. Grade II systolic ejection murmur. No diastolic murmur. Lungs: Clear to auscultation. Abdomen: +BS. Soft. Nontender. No masses or organomegaly. Extremities: No edema. Limited neurological examination is without focal deficits. Pulses: radial=2/4, posterior tibial=2/4. Results & Data Vital Signs (Past 12 Hours) Vital Signs Temp Pulse Pulse Pulse Resp BP Pulse Ox 06/04/24 03:46 36.8 C 69 18 128/66 98 06/04/24 00:00 67 06/03/24 22:09 37.4 C 65 18 129/73 97 O2 Del Method 06/04/24 03:46 Room Air 06/04/24 00:00 06/03/24 22:09 Room Air Laboratory Results Cardiac Enzymes 06/03/24 Range/Units 14:45 AST 37 (13-39) U/L Troponin I High Sens 5.8 (0-20) pg/ml Coagulation 06/03/24 06/04/24 Range/Units 10:02 06:02 PT 19.0 H 14.2 H (9.0-12.0) Seconds APTT 31 (21-31) Seconds CBC 06/03/24 06/03/24 06/04/24 Range/Units 10:02 14:45 06:02 WBC 7.65 10.06 7.94 (4.8-10.8) K/ul RBC 4.17 L 4.38 L 4.21 L (4.70-6.10) M/uL Hgb 9.9 L 10.4 L 10.0 L (14.0-18.0) g/dl Hct 32.2 L 34.6 L 33.2 L (42.0-52.0) % Plt Count 295 370 304 (130-400) K/uL Neut # (Auto) 5.31 (1.40-6.50) K/uL Lymph # (Auto) 1.54 (1.20-3.40) K/uL [place] # (Auto) 0.63 H (0.11-0.59) K/uL Eos # (Auto) 0.12 (0.00-0.50) K/uL Baso # (Auto) 0.02 (0.00-0.20) K/uL Comprehensive Metabolic Panel 06/03/24 06/04/24 Range/Units 14:45 06:02 Sodium 135 L 136 (136-145) mmol/L Potassium 4.0 4.3 (3.5-5.1) mmol/L Chloride 103 104 (98-107) mmol/L Carbon Dioxide 27 27 (21-32) mmol/L BUN 17 17 (6-23) mg/dl Creatinine 0.85 0.70 (0.6-1.4) mg/dl Glucose 82 115 H (70-99(Fasting)) mg/dl Calcium 9.3 8.9 (8.6-10.3) mg/dl AST 37 (13-39) U/L ALT 44 (7-52) U/L Alkaline Phosphatase 84 (34-104) U/L Total Protein 7.9 (6.0-8.3) gm/dl Albumin 3.4 (3.4-5.0) gm/dl Intake and Output 06/03/24 06/04/24 06/04/24 22:59 06:59 14:59 Intake Total 720.733 / 1120.733 200 / 1120.733 319.267 / 319.267 Output Total 300 / 300 Balance 420.733 / 820.733 200 / 820.733 319.267 / 319.267 Intake: IV 280.733 / 680.733 200 / 680.733 319.267 / 319.267 Ampicillin/Sulbactam Sod 3,000 100 / 400 200 / 400 mg In Sodium Chlor 0.9% Mini-B 100 ml @ 100 mls/hr IV Q6H [facility] Rx#:[id number] Heparin Sodium/Dextrose 25,000 180.733 / 180.733 319.267 / 319.267 units In 500 ml @ 1,200 UNITS/ HR 24 mls/hr IV .[id number] [facility] Rx #:[id number] Oral 440 / 440 Output: Urine 300 / 300 Other: Other Intake Source NPO # Unmeasured Voids 2 2 Weight 116.9 kg Weight Measurement Method Built in [facility] (6) Anemia Anemia type: unspecified type Qualified Code(s): D64.9 - Anemia, unspecified
--- NOTE | 2024-06-04 10:34 | Anesthesiology Consultation ---
Date of Service June 04, 2024 Assessment & Plan Chart Review Chart Review: Acceptable Risk for Surgery and Patient NOT seen in Pre Admission Testing History Surgery Operation Date: 05/28/24 10:00 Proposed Procedures p Transesophageal Echo w/Anesthesia - Lloyd Burrell DO Operation Date: 06/04/24 13:00 Proposed Procedures p Teeth Extraction x 7 - Bryan Eubanks DMD s Right Lower Facial Incision and Drainage - Bryan Eubanks DMD Height/Weight Height: 6 ft Weight: 116.9 kg Allergies Allergy/AdvReac Type Severity Reaction Status Date / Time No Known Allergies Allergy Verified 05/26/24 09:34 Medications Home Medications Medication Instructions Recorded Confirmed Last Taken clopidogrel 75 mg tablet 75 mg PO QAM 11/12/18 05/26/24 05/25/24 duloxetine 60 mg capsule,delayed 60 mg PO DAILY 11/12/18 05/26/24 05/25/24 release warfarin 5 mg tablet See Rx Instructions .Route .COMPLEX 12/06/19 05/26/24 05/25/24 duloxetine 30 mg capsule,delayed 30 mg PO DAILY 03/11/21 05/26/24 05/25/24 release acetaminophen 500 mg tablet 1,000 mg PO Q6H PRN Pain 04/08/21 05/26/24 05/25/24 (Tylenol Extra Strength) multivitamin 1 tab PO DAILY 04/20/21 05/26/24 05/25/24 atorvastatin 10 mg tablet 10 mg PO HS 05/26/24 05/26/24 05/25/24 cholecalciferol (vitamin D3) 125 125 mcg PO DAILY 05/26/24 05/26/24 05/25/24 mcg (5,000 unit) tablet (Vitamin D3) losartan 50 mg tablet 50 mg PO BID 05/26/24 05/26/24 05/25/24 metoprolol tartrate 25 mg tablet 75 mg PO BID 05/26/24 05/26/24 05/25/24 Active Medications Generic Name Dose Route Start Last Admin Trade Name Freq PRN Reason Stop Dose Admin Atorvastatin Calcium 10 mg 05/26/24 21:00 06/03/24 21:02 Atorvastatin 10 Mg Tab PO 06/25/24 20:59 10 mg HS VIRGEN Administration Clopidogrel Bisulfate 75 mg 05/27/24 09:00 06/04/24 08:52 Clopidogrel Bisulfate 75 Mg Tab PO 06/26/24 08:59 75 mg QAM VIRGEN Administration Cyclobenzaprine HCl 10 mg 05/26/24 14:49 06/04/24 01:12 Cyclobenzaprine Hcl 10 Mg Tab PO 06/25/24 14:48 10 mg TID PRN Administration Muscle Spasm Duloxetine HCl 30 mg 05/27/24 09:00 06/04/24 08:54 Duloxetine Hcl 30 Mg Cap PO 06/26/24 08:59 30 mg DAILY VIRGEN Administration Duloxetine HCl 60 mg 05/27/24 09:00 06/04/24 08:52 Duloxetine Hcl 60 Mg Cap PO 06/26/24 08:59 60 mg DAILY VIRGEN Administration Hydromorphone HCl 0.5 mg 05/26/24 12:13 06/04/24 00:57 Hydromorphone Inj 0.5 Mg/0.5 Ml Syr IV 06/09/24 12:12 0.5 mg Q6H PRN Administration Severe Pain (Scale 7, 8, 9,10) Pantoprazole Sodium 40 mg/ 10 mls @ 5 mls/min 05/26/24 21:00 06/04/24 08:51 Syringe IV 06/25/24 20:59 5 mls/min BID VIRGEN Administration Ampicillin Sodium/Sulbactam 100 mls @ 100 mls/hr 05/28/24 17:00 06/04/24 08:52 Sodium 3,000 mg/ Sodium IV 06/11/24 16:59 100 mls/hr Chloride Q6H VIRGEN Administration Heparin Sodium/Dextrose 25,000 units in 500 mls @ 24 mls/hr 06/03/24 08:30 06/04/24 09:08 Heparin Sodium/Dextrose IV 07/03/24 08:29 Not Given .[id number] VIRGEN Protocol 1,200 UNITS/HR Lidocaine 1 patch 05/27/24 17:30 06/04/24 08:50 Lidocaine 5% 1 Patch TD 06/26/24 17:29 1 patch QAM VIRGEN Administration Losartan Potassium 25 mg 06/04/24 09:00 06/04/24 08:52 Losartan Potassium 25 Mg Tab PO 07/04/24 08:59 25 mg QAM VIRGEN Administration Methylprednisolone 8 mg 06/03/24 11:00 06/03/24 11:52 Methylprednisolone 4 Mg Tab PO 8 mg 1100,2100 VIRGEN Administration Metoprolol Succinate 100 mg 06/03/24 09:00 06/04/24 08:51 Metoprolol Succ 50mg Ext Rel Tab PO 07/03/24 08:59 100 mg QAM VIRGEN Administration Metoprolol Succinate 50 mg 06/02/24 21:00 06/03/24 21:02 Metoprolol Succ 50mg Ext Rel Tab PO 07/02/24 20:59 50 mg QPM VIRGEN Administration Miscellaneous 1 each 05/27/24 21:00 06/03/24 21:03 Remove Lidoderm Patch N/A 06/26/24 20:59 1 each DAILY@2100 VIRGEN Administration Miscellaneous 1 each 06/04/24 08:55 06/04/24 09:08 Pending Order N/A 07/04/24 08:54 1 each DAILY@0855 VIRGEN Administration Multivitamins 1 tab 05/27/24 09:00 06/04/24 08:51 Multivitamin Tab PO 06/26/24 08:59 1 tab DAILY VIRGEN Administration Oxycodone HCl 7.5 mg 05/27/24 17:19 06/03/24 10:06 Oxycodone Hcl Ir 5 Mg Tab (Immediate Release) PO 06/09/24 14:48 7.5 mg Q6H PRN Administration Moderate Pain (Scale 4, 5, 6) Vitamin D 125 mcg 05/27/24 09:00 06/04/24 08:52 Cholecalciferol 125 Mcg (5,000 Units) Tab PO 06/26/24 08:59 125 mcg DAILY VIRGEN Administration Warfarin Sodium 15 mg 05/26/24 16:00 05/30/24 16:24 Warfarin Sod 5 Mg Tab PO 06/25/24 15:59 15 mg [id number]@1600 VIRGEN Administration Warfarin Sodium 10 mg 05/28/24 16:00 05/31/24 16:02 Warfarin Sod 10 Mg Tab PO 06/27/24 15:59 10 mg MoFr@1600 VIRGEN Administration NPO Date Last Intake of Fluids: 05/28/24 Time Last Intake of Fluids: 08:00 Last Intake of Fluids Comment: sip with meds Date Last Intake of Solids: 05/27/24 Past Medical History Medical History (Updated 05/28/24 @ 12:14 by Lloyd Burrell DO) History of aortic dissection Atypical chest pain Gastroenteritis Generalized weakness Flu-like symptoms Acute chest pain LBBB (left bundle branch block) Congenital bicuspid aortic valve Chest pain Past Family History Family History Mother Alive and well Father Alive and well Grandfather (Maternal) Coronary heart disease T2DM (type 2 diabetes mellitus) Grandmother (Maternal) T2DM (type 2 diabetes mellitus) Coronary heart disease Other No family history of kidney disease Past Surgical History Surgical History H/O mechanical aortic valve replacement Social History Smoking Status: Former smoker tobacco type: cigarettes Smoking cigarettes per day: 1 Do You Dip or Chew Tobacco: No Smoking End Date: 9 years ago Hx Alcohol Use: No Alcohol type: beer alcohol intake frequency: holidays/special occasions only Hx Substance Use: No substance use type: does not use Physical Exam Vital Signs Last Vital Signs Temp 36.8 C 06/04/24 03:46 Pulse 69 06/04/24 03:46 Resp 18 06/04/24 03:46 BP 128/66 06/04/24 03:46 Pulse Ox 98 06/04/24 03:46 O2 Del Method Room Air 06/04/24 03:46 Testing Laboratory Results 06/04/24 06:02 06/04/24 06:02 PT 14.2 Seconds (9.0-12.0) H 06/04/24 06:02 INR 1.3 (0.9-1.1) H 06/04/24 06:02 APTT 31 Seconds (21-31) 06/03/24 10:02 Urine Color Yellow 06/04/24 00:18 Urine Appearance Clear (Clear) 06/04/24 00:18 Urine pH 6.0 (4.5-7.5) 06/04/24 00:18 Ur Specific [place] > 1.045 (1.000-1.030) H 06/04/24 00:18 Urine Protein Negative (Negative) 06/04/24 00:18 Urine Glucose (UA) Negative (Negative) 06/04/24 00:18 Urine Ketones Negative (Negative) 06/04/24 00:18 Urine Nitrite Negative (Negative) 06/04/24 00:18 Ur Leukocyte Esterase Negative (Negative) 06/04/24 00:18 Urine WBC (Auto) 21-50 /hpf (0-5) H 05/26/24 Unknown Urine RBC (Auto) 6-10 /hpf (0-2) H 05/26/24 Unknown U Hyaline Cast (Auto) 0-2 /lpf (0-2) 05/26/24 Unknown U Epithel Cells (Auto) 0-2 /hpf (0-2) 05/26/24 Unknown Urine Bacteria (Auto) 4+ (None Seen) H 05/26/24 Unknown 05/28/24 08:02 Aerobic Blood Culture - Final Blood No growth in Aerobic bottle after 5 days. Anaerobic Blood Culture - Final 05/28/24 08:17 Aerobic Blood Culture - Final Blood No growth in Aerobic bottle after 5 days. Anaerobic Blood Culture - Final 05/26/24 12:05 Aerobic Blood Culture - Final Blood Streptococcus mitis/oralis Anaerobic Blood Culture - Final Streptococcus mitis/oralis 05/26/24 12:10 Aerobic Blood Culture - Final Blood Streptococcus mitis/oralis Anaerobic Blood Culture - Final Streptococcus mitis/oralis 05/26/24 Unknown Urine Culture - Final Urine,Clean Catch Klebsiella pneumoniae Electrocardiogram Date: 05/26/24 Findings: + NSR @ and + LBBB Echocardiogram Date: 05/28/24 EF: 55-60 LV Function: normal bi leaflet aortic mechnical prosthesis, no evidence of endocarditis.
[2024-06-04] MEDS ORDERED: DEXAMETHASONE SOD INJ 4 MG/ML VIAL ONE (10:58)
[2024-06-04] MEDS ORDERED: fentaNYL citrate PF 100 MCG/2 ML VIAL ONE (10:58)
[2024-06-04] MEDS ORDERED: GLYCOPYRROLATE 0.2 MG/ML VIAL ONE ×2 (10:58→14:45)
[2024-06-04] MEDS ORDERED: LIDOCAINE 2% 20 MG/ML 5 ML SYR IV ONE (10:58)
[2024-06-04] MEDS ORDERED: ONDANSETRON INJ 2 MG/ML 2 ML VIAL ONE (10:58)
[2024-06-04] MEDS ORDERED: PROPOFOL IV EMULSION 10 MG/ML 20 ML VIAL IV ONE ×2 (10:58→15:32)
[2024-06-04] MEDS ORDERED: MIDAZOLAM HCL 1 MG/ML 2ML VIAL ONE (10:58)
[2024-06-04] MEDS ORDERED: ROCURONIUM BROMIDE 10 MG/ML 5 ML VIAL IV ONE (10:58)
[2024-06-04] MEDS: LACTATED RINGER'S 1,000 ML IV SCH (12:31)
[2024-06-04] MEDS ORDERED: HYDROmorphone INJ 1 MG/ML SYRINGE IV PRN (12:53)
[2024-06-04] MEDS ORDERED: ePHEDrine sulfate 50 MG/ML AMP IV PRN (12:53)
[2024-06-04] MEDS ORDERED: ATROPINE SULFATE 0.1 MG/ML 10ML SYR IV PRN (12:53)
[2024-06-04] MEDS ORDERED: ONDANSETRON INJ 2 MG/ML 2 ML VIAL IV PRN (12:53)
--- NOTE | 2024-06-04 13:31 | History & Physical Bridge Note ---
Date of Service June 04, 2024 History & Physical Bridge Note I have examined the patient, reviewed the History & Physical and in the interval since the performance of the History & Physical I have noted the following changes of clinical significance: no changes noted OK for the planned procedure INR is now 1.3
[2024-06-04] MEDS: ceFAZolin 2000MG 2,000 MG/15 ML SYR IV ONE (14:10)
[2024-06-04] MEDS ORDERED: KETOROLAC 30 MG/ML VIAL ONE (14:45)
[2024-06-04] MEDS: CHLORHEXIDINE GLUCONATE 0.12% 480 ML MT ONE (14:55)
[2024-06-04] MEDS ORDERED: SUGAMMADEX SODIUM 200 MG/2 ML VIAL IV ONE (14:55)
[2024-06-04] MEDS: ceFAZolin 2,000 MG/15 ML IV PUSH IV ONE (14:55)
[2024-06-04] MEDS: BUPIVACAINE/EPINEPHRINE 0.5% 1:200,000 1.8 ML CARP ONE (14:55)
[2024-06-04] MEDS: fentaNYL citrate PF 100 MCG/2 ML VIAL IV PRN (15:35)
--- NOTE | 2024-06-04 15:36 | Post Operative Brief Note ---
PG Immediate Post Op with CF Date of Surgery June 04, 2024 Pre & Post Diagnosis Operation Date: 06/04/24 13:00 Pre-Op Diagnosis: The following teeth are grossly fractured, decayed and associated with periapically infection and radiolucent apical lesions: 3,5,13,16,17,20,32 Post-Op Diagnosis: The following teeth are grossly fractured, decayed and associated with periapically infection and radiolucent apical lesions: 3,5,13,16,17,20,32 I identified the patient and participated in the time-out.: Yes Procedure Operation Date: 06/04/24 13:00 Actual Procedures p Teeth Extraction: 3, 5, 13, 16, 17, 20, 32(Not Applicable) - Bryan Eubanks DMD s Right Lower Facial Incision and Drainage(Not Applicable) - Bryan Eubanks DMD Surgeon Bryan Eubanks DMD Global Regulatory Affairs Manager none Estimated Blood Loss 3 Findings Consistent with Post-Op Diagnosis carious and infected teeth contributing to diagnosis of current sepsis.\ Teeth 3, 5, 13, 16, 17, 20, 32 removed Anesthesia Type General Disposition Accompanied Patient To Recovery: Yes
[2024-06-04] MEDS: WARFARIN SOD 7.5 MG TAB PO ONE (17:42)
[2024-06-04] MEDS: WARFARIN SOD 10 MG TAB PO ONE (18:23)
[2024-06-04] MEDS: HYDROmorphone INJ 0.5 MG/0.5 ML SYR IV PRN (21:36)
--- NOTE | 2024-06-04 22:12 | Electrocardiogram Report ---
Test Reason : Blood Pressure : / mmHG Vent. Rate : 071 BPM Atrial Rate : 071 BPM P-R Int : 192 ms QRS Dur : 162 ms QT Int : 450 ms P-R-T Axes : 041 033 098 degrees QTc Int : 489 ms Sinus rhythm with Premature supraventricular complexes Left bundle branch block Abnormal ECG When compared with ECG of 30-MAY-2024 08:26, Premature supraventricular complexes are now Present Confirmed by Tim Brown ([id number]) on 06/04/2024 10:11:49 PM Referred By: REFERRED SELF Confirmed By:Tim Brown
[2024-06-05] MEDS ORDERED: methylPREDNISolone 4 MG TAB PO SCH (07:00)
[2024-06-05 07:32] LABS: Hematocrit (blood only) 33.6 % (42.0-52.0); Hemoglobin 9.8 g/dl (14.0-18.0); Mean Corpuscular Hemoglobin 23.4 pg (25.0-34.0); Mean Corpuscular Hgb Conc 29.2 g/dL (32.0-36.0); Mean Corpuscular Volume 80.2 fL (80.0-100.0); Mean Platelet Volume 9.9 fL (9.4-12.4); Platelet Count 297 K/uL (130-400); Red Blood Count 4.19 M/uL (4.70-6.10); White Blood Count 8.29 K/ul (4.8-10.8)
[2024-06-05 07:44] LABS: BUN Creatinine Ratio 19.8 (10-20); Calcium 8.9 mg/dl (8.6-10.3); Creatinine Clr Calc Pharmacy 165.5 ml/min; Est GFR (African American) 131.6 ml/min; Est GFR (Non-African American) 113.5 ml/min; Magnesium 1.8 mg/dl (1.7-2.4); Phosphorus 4.1 mg/dl (2.5-4.9); Potassium 4.2 mmol/L (3.5-5.1)
[2024-06-05 07:55] LABS: INR 1.3 (0.9-1.1); Prothrombin Time 14.2 Seconds (9.0-12.0)
--- NOTE | 2024-06-05 09:07 | Cardiology Progress Note ---
Date of Service June 05, 2024 Assessment & Plan (1) Bacteremia: (2) H/O mechanical aortic valve replacement: (3) Complicated UTI (urinary tract infection): (4) Chronic heart failure with preserved ejection fraction: (5) History of aortic dissection: (6) Anemia: (7) Poor dentition: Plan Complex 38 year old male with history of type I aortic dissection in 07/2014 secondary to marked aortopathy status post emergent aortic valve and root replacement with mechanical valve, with post discharge complication of cardiac tamponade requiring thoracotomy, pericardial window 07/29/2014, chronic diastolic heart failure, LBBB, hypertension, dyslipidemia, and obesity s/p gastric bypass. 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 Patient presented to [facility] following a mechanical fall 1.5 weeks prior, with severe acute on chronic back pain, weakness, fevers, and chills. Workup revealed gram-positive bacteremia, probable dental source and suspected etiology to intermittent diaphoresis episodes (or perhaps duloxetine), and a complicated UTI. Transesophageal echocardiography demonstrated normal mechanical prosthetic aortic valve function without evidence of vegetation. Infectious disease has recommended 2 weeks of antibiotics from first negative blood culture. Status post June 04, 2024 dental extractions (3, 5, 13, 16, 17, 20, 32) and right lower facial I&D by Dr. Eubanks. Patient received 15 mg of Coumadin in the PM of 06/04 with IV Heparin restarted around 8:15 AM today (06/05/2024) Recommendations: 1. Heparin bridge back to proper therapeutic Coumadin anticoagulation. ? discharge late this afternoon with Lovenox if no issues tolerating heparin. 2. Resume clopidogrel 3. Losartan reduced this admission due to hypotension. 4. Lopressor changed back to Toprol XL this admission. 5. Outpatient Cardiology follow-up. 6. Please contact with any questions or concerns. I spent a total of 25 minutes on the date of service in preparation, delivery, and documentation of the care provided to this patient excluding any time spent in the performance of separately billed services. This visit was a split-shared visit with the substantive portion of the medical decision making performed by the supervising bulk sealer/billing provider. Admission and Anticipated Discharge Date Admission Date: May 26, 2024 Supervising Physician Co-Signing Physician Notes Patient was seen and personally examined. Chart current and past records reviewed assessment and plan as above. Complex 38-year-old male status post type I acute aortic dissection and subsequent aortic valve replacement with mechanical valve. Admitted with back pain but subsequently observed bacteremia found possible dental origin Patient underwent dental surgery day prior. Mouth sore but no acute complaints this morning Anxious to be discharged if cleared by dental surgeon Will need arrangements for antibiotic therapies Bridge anticoagulation with Lovenox Caution patient to promptly report any signs of fevers or infections or clinical decline I spent a total of 15 minutes on the date of service in preparation, delivery, and documentation of the care provided to this patient exclu Subjective Patient seen and examined. Chart, medications, and telemetry reviewed. Status post June 04, 2024 dental extractions (3, 5, 13, 16, 17, 20, 32) and right lower facial I&D by Dr. Eubanks Considerable but improving dental/sinus discomfort No episodes of diaphoresis over the past 1.5 days No unilateral complaints, amaurosis fugax, chest pain, dyspnea, orthopnea, PND, edema, palpitations Patient very anxious for discharge today. Received 15 mg of Coumadin in the PM of 06/04 Heparin resumed around 8:15 AM today (06/05/2024) Telemetry: Sinus primarily in the 60 to 80 bpm range, occasionally with sinus tachycardia. Review of Systems Review of Systems: Complete Review of Systems is as stated above, negative, or noncontributory. Physical Exam Physical Exam: General: A&Ox3. NAD. HENT: Normocephalic. Atraumatic. Eyes: PER. Conjunctiva pink, sclera clear. Neck: Transmitted systolic murmur. No JVD. Heart: Regular. [place] mechanical valve sounds. Grade II systolic ejection murmur. No diastolic murmur. Lungs: Clear to auscultation. Abdomen: +BS. Soft. Nontender. No masses or organomegaly. Extremities: No edema. Limited neurological examination is without focal deficits. Pulses: radial=2/4, posterior tibial=2/4. Results & Data Vital Signs (Past 12 Hours) Vital Signs Temp Pulse Pulse Pulse Resp BP Pulse Ox 06/05/24 07:40 36.7 C 62 14 157/79 H 97 06/05/24 02:59 36.5 C 65 20 134/67 97 08/03/24 00:48 61 06/04/24 23:21 36.3 C L 63 20 149/77 H 98 O2 Del Method 06/05/24 07:40 Room Air 06/05/24 02:59 Room Air 06/05/24 00:48 06/04/24 23:21 Room Air Laboratory Results Coagulation 06/05/24 Range/Units 06:52 PT 14.2 H (9.0-12.0) Seconds CBC 06/05/24 Range/Units 06:52 WBC 8.29 (4.8-10.8) K/ul RBC 4.19 L (4.70-6.10) M/uL Hgb 9.8 L (14.0-18.0) g/dl Hct 33.6 L (42.0-52.0) % Plt Count 297 (130-400) K/uL Comprehensive Metabolic Panel 06/05/24 Range/Units 06:52 Sodium 137 (136-145) mmol/L Potassium 4.2 (3.5-5.1) mmol/L Chloride 102 (98-107) mmol/L Carbon Dioxide 31 (21-32) mmol/L BUN 16 (6-23) mg/dl Creatinine 0.81 (0.6-1.4) mg/dl Glucose 91 (70-99(Fasting)) mg/dl Calcium 8.9 (8.6-10.3) mg/dl Intake and Output 06/04/24 06/05/24 06/05/24 22:59 06:59 14:59 Intake Total 1288.25 / 2047.517 340 / 2047.517 Output Total 3 / 3 Balance 1285.25 / 2044.517 340 / 2044.517 Intake: IV 188.25 / 807.517 200 / 807.517 Ampicillin/Sulbactam Sod 3,000 100 / 400 200 / 400 mg In Sodium Chlor 0.9% Mini-B 100 ml @ 100 mls/hr IV Q6H VIRGEN Rx#:[id number] Lactated Ringer's 1,000 ml @ 88.25 / 88.25 KVO IV .Q0M VIRGEN Rx#:[id number] IV Perioperative 800 / 800 Oral 300 / 440 140 / 440 Output: Estimated Blood Loss 3 / 3 Other: # Unmeasured Voids 1 Weight 116.9 kg 117.9 kg Weight Measurement Method Built in [facility] (6) Anemia Anemia type: unspecified type Qualified Code(s): D64.9 - Anemia, unspecified
[2024-06-05] MEDS ORDERED: oxyCODONE/APAP 7.5/325MG TAB PO PRN (10:05)
[2024-06-05] MEDS: LORazepam 1 MG TAB PO STA (10:19)
--- NOTE | 2024-06-05 11:54 | Hospitalist Progress Note ---
Date of Service June 05, 2024 Assessment & Plan (1) Fall: (2) Bacteremia: (3) Complicated UTI (urinary tract infection): (4) Ambulatory dysfunction: Plan Mr. Fong is a 38-year-old male with PMH type I aortic dissection 07/2014 secondary to marked aortopathy s/p emergent aortic valve and root replacement with mechanical valve, with post discharge complication of cardiac tamponade requiring thoracotomy, pericardial window 07/29/2014, chronic diastolic heart failure, LBBB, HTN, dyslipidemia, obesity s/p gastric bypass, anxiety, depression, history DDD and others listed below presented to ER with c/o back pain after mechanical fall 1.5 weeks ago and weakness x 3 days with chills, sweats. Patient was noted to have UTI and bacteremia likely from poor dentition. Patient was off warfarin to allow INR to trend down, with INR to 1.3 06/04. Patient tolerated procedure well. Patient given warfarin 15mg on 06/04 with plans to continue this dosing until theraputic. Plan was lovenox bridge then discharge home on 06/05, however, given unforeseen incident, patient unable to secure safe dispo and will remain admitted through the weekend. #Bacteremia 2/2 strep mitis/oralis #Poor dentition #Complicated UTI Pt presenting with chills and sweats, weakness after fall at home urine culture grew Klebsiella Blood Cx x 2 sets (02/04) 05/26: grew strep mitis/oralis Repeat Blood Cx 2 sets 05/28 NGTD Was initially on IV Zosyn and Vancomycin Infectious Disease consulted for further recs, appreciate recs. recommended/stated the following: -Recommend switching Vancomycin to Unasyn 3g q6 IV for now. - Anticipate 2 weeks of IV antibiotics from first negative blood culture Cardiology consulted in setting of [facility]acteremia [facility] -[facility]E without endocarditis -RAHEL on 05/28 without endocarditis as well Source of bacteremia likely dental, OMFS Dr Eubanks consulted. Appreciate further recs -Scheduled for extraction on 06/04, tolerated without issue Midline placed 06/05 ABX EOT 2 weeks from first negative blood culture per ID recs. EOT 06/11 Monitor closely given resumption of AC #Back pain #Fall #Degenerative Disc Disease CT Head: No acute intracranial hemorrhage, no evidence of acute territorial infarction or other acute intracranial disease process. CT C-Spine: No acute fracture CT Chest & Thoracic spine: No acute posttraumatic intrathoracic abnormality.No acute fracture or pneumothorax identified. Again seen is a Type A thoracic aortic dissection with postsurgical change as above. The postoperative appearance is likely unchanged from the 09/08/[address] lumbar spine: No evidence of acute abnormality and in particular no evidence of acute fracture. CT abd/pelvis:No evidence of acute abnormality and in particular no evidence of acute fracture. Chronic aortic dissection is unchanged. Status post cholecystomy. CT hip:No fracture or dislocation within the right hip. MRI Spine noting "Degenerative changes as above, most pronounced at L4-L5 and L5-S1. Edema and enhancement involving the L4-L5 facets on the right, likely degenerative/reactive." In ER given Flexeril and IV Tylenol with reported some improvement of back pain Scheduled IV Tylenol, oxycodone, Dilaudid, lidocaine patch as needed for pain Flexeril as needed for muscle spasm Ortho spine consulted appreciate recs Pain Management consulted, appreciate recs -completed brief steroid burst -s/p IV decadron x 1, symptoms resolved PT/OT: home #Iron deficiency Anemia *stable Denies CP, SOB, melena, hematochezia Hgb: 8.8. Baseline Hgb: 12 Obtain Hemoccult stool Anemia labs noting iron deficiency anemia On warfarin chronically Protonix twice daily Avoid NSAIDs May need to consider GI consult if positive Hemoccult s/p IV Venofer 200mg on 05/27, 1 bag #Hypocalcemia Ionized yaquelin decreased PTH low, Vit D normal supplement as needed #S/P AVR (aortic valve replacement) #Mechanical aortic valve #Chronic thoracic aortic dissection: #Anticoagulated on warfarin: #Chronic heart failure with preserved ejection fraction: PMH type I aortic dissection 07/2014 secondary to marked aortopathy s/p emergent aortic valve and root replacement with mechanical valve, with post discharge complication of cardiac tamponade requiring thoracotomy, pericardial window 07/29/2014 Chronic thoracic aortic dissection noted on imaging, stable Chronically anticoagulated on warfarin, follow PT/INR Continue metoprolol, Plavix, atorvastatin Hold torsemide currently as appears on dry side. Reassess volume status Monitor H&H Monitor INR Cardiology consulted as noted above Lovenox BID and Warfarin 15mg daily INR daily until dispo #HTN (hypertension): Continue metoprolol, losartan #HLD (hyperlipidemia) Continue atorvastatin #Anxiety and depression Continue duloxetine #History of gastric bypass: #Obesity: Stable DVT Prophylaxis: Anticoagulated on warfarin (held), lovenox bridge Conditional Code, Wants CPR, defibrillation, medications but does not want intubation or mechanical ventilation as per discussion with pt Dispo: PT/OT home Admission and Anticipated Discharge Date Admission Date: May 26, 2024 Subjective NAEO No bleeding or clots being dislodged Plan to go home, however, incident with significant other delayed plans/caregiver support Reports anxiety given news of incident, unable to discharge safely at this time Physical Exam Constitutional: WD/WN, vitals as above Respiratory: normal respiratory effort, lungs clear to auscultation Cardiovascular: mechanical click, SILVIA Results & Data Results & Data Vital Signs (Past 12 Hours) Vital Signs Temp Pulse Pulse Pulse Resp BP Pulse Ox 06/05/24 11:09 36.7 C 66 18 129/71 95 06/05/24 07:40 36.7 C 62 14 157/79 H 97 06/05/24 02:59 36.5 C 65 20 134/67 97 06/05/24 00:48 61 O2 Del Method 06/05/24 11:09 Room Air 06/05/24 07:40 Room Air 06/05/24 02:59 Room Air 06/05/24 00:48 Laboratory Results Short CBC 06/05/24 Range/Units 06:52 WBC 8.29 (4.8-10.8) K/ul Hgb 9.8 L (14.0-18.0) g/dl Hct 33.6 L (42.0-52.0) % Plt Count 297 (130-400) K/uL BMP 06/05/24 06:52 Sodium 137 Potassium 4.2 Chloride 102 Carbon Dioxide 31 BUN 16 Creatinine 0.81 Glucose 91 Calcium 8.9 Medications Administered Home Medications Medication Instructions Recorded Confirmed Last Taken clopidogrel 75 mg tablet 75 mg PO QAM 11/12/18 05/26/24 05/25/24 duloxetine 60 mg capsule,delayed 60 mg PO DAILY 11/12/18 05/26/24 05/25/24 release warfarin 5 mg tablet See Rx Instructions .Route .COMPLEX 12/06/19 05/26/24 05/25/24 duloxetine 30 mg capsule,delayed 30 mg PO DAILY 03/11/21 05/26/24 05/25/24 release acetaminophen 500 mg tablet 1,000 mg PO Q6H PRN Pain 04/08/21 05/26/24 05/25/24 (Tylenol Extra Strength) multivitamin 1 tab PO DAILY 04/20/21 05/26/24 05/25/24 atorvastatin 10 mg tablet 10 mg PO HS 05/26/24 05/26/24 05/25/24 cholecalciferol (vitamin D3) 125 125 mcg PO DAILY 05/26/24 05/26/24 05/25/24 mcg (5,000 unit) tablet (Vitamin D3) losartan 50 mg tablet 50 mg PO BID 05/26/24 05/26/24 05/25/24 metoprolol tartrate 25 mg tablet 75 mg PO BID 05/26/24 05/26/24 05/25/24 Active Medications Generic Name Dose Route Start Last Admin Trade Name Freq PRN Reason Stop Dose Admin Atorvastatin Calcium 10 mg 05/26/24 21:00 06/04/24 20:37 Atorvastatin 10 Mg Tab PO 06/25/24 20:59 10 mg HS VIRGEN Administration Clopidogrel Bisulfate 75 mg 05/27/24 09:00 06/05/24 08:30 Clopidogrel Bisulfate 75 Mg Tab PO 06/26/24 08:59 75 mg QAM VIRGEN Administration Cyclobenzaprine HCl 10 mg 05/26/24 14:49 06/04/24 01:12 Cyclobenzaprine Hcl 10 Mg Tab PO 06/25/24 14:48 10 mg TID PRN Administration Muscle Spasm Duloxetine HCl 30 mg 05/27/24 09:00 06/05/24 08:33 Duloxetine Hcl 30 Mg Cap PO 06/26/24 08:59 30 mg DAILY VIRGEN Administration Duloxetine HCl 60 mg 05/27/24 09:00 06/05/24 08:32 Duloxetine Hcl 60 Mg Cap PO 06/26/24 08:59 60 mg DAILY VIRGEN Administration Hydromorphone HCl 0.5 mg 06/04/24 21:12 06/05/24 10:03 Hydromorphone Inj 0.5 Mg/0.5 Ml Syr IV 06/09/24 12:12 0.5 mg Q3H PRN Administration Severe Pain (Scale 7, 8, 9,10) Pantoprazole Sodium 40 mg/ 10 mls @ 5 mls/min 05/26/24 21:00 06/05/24 08:31 Syringe IV 06/25/24 20:59 5 mls/min BID VIRGEN Administration Ampicillin Sodium/Sulbactam 100 mls @ 100 mls/hr 05/28/24 17:00 06/05/24 06:37 Sodium 3,000 mg/ Sodium IV 06/11/24 16:59 Infused Chloride Q6H VIRGEN Infusion Lidocaine 1 patch 05/27/24 17:30 06/05/24 08:34 Lidocaine 5% 1 Patch TD 06/26/24 17:29 1 patch QAM VIRGEN Administration Losartan Potassium 25 mg 06/04/24 09:00 06/05/24 08:33 Losartan Potassium 25 Mg Tab PO 07/04/24 08:59 25 mg QAM VIRGEN Administration Metoprolol Succinate 100 mg 06/03/24 09:00 06/05/24 08:31 Metoprolol Succ 50mg Ext Rel Tab PO 07/03/24 08:59 100 mg QAM VIRGEN Administration Metoprolol Succinate 50 mg 06/02/24 21:00 06/04/24 20:39 Metoprolol Succ 50mg Ext Rel Tab PO 07/02/24 20:59 50 mg QPM VIRGEN Administration Miscellaneous 1 each 05/27/24 21:00 06/04/24 20:39 Remove Lidoderm Patch N/A 06/26/24 20:59 1 each DAILY@2100 VIRGEN Administration Miscellaneous 1 each 06/04/24 08:55 06/04/24 09:08 Pending Order N/A 07/04/24 08:54 1 each DAILY@0855 VIRGEN Administration Multivitamins 1 tab 05/27/24 09:00 06/05/24 08:32 Multivitamin Tab PO 06/26/24 08:59 1 tab DAILY VIRGEN Administration Oxycodone HCl 7.5 mg 05/27/24 17:19 06/05/24 08:43 Oxycodone Hcl Ir 5 Mg Tab (Immediate Release) PO 06/09/24 14:48 7.5 mg Q6H PRN Administration Moderate Pain (Scale 4, 5, 6) Vitamin D 125 mcg 05/27/24 09:00 06/05/24 08:34 Cholecalciferol 125 Mcg (5,000 Units) Tab PO 06/26/24 08:59 125 mcg DAILY VIRGEN Administration Warfarin Sodium 15 mg 05/26/24 16:00 05/30/24 16:24 Warfarin Sod 5 Mg Tab PO 06/25/24 15:59 15 mg SuTuWeThSa@1600 VIRGEN Administration Warfarin Sodium 10 mg 05/28/24 16:00 05/31/24 16:02 Warfarin Sod 10 Mg Tab PO 06/27/24 15:59 10 mg MoFr@1600 VIRGEN Administration (1) Fall Encounter type: initial encounter Qualified Code(s): W19.XXXA - Unspecified fall, initial encounter
--- NOTE | 2024-06-05 11:59 | Oral/Maxillofacial Progress Nt ---
Date of Service June 05, 2024 Assessment & Plan Admission and Anticipated Discharge Date Admission Date: May 26, 2024 Subjective Post Op infection and associated dental extractions evaluation 24 hours The infected area and dental extraction sites have responded very well. No bleeding and swelling has decreased. Still post op pain as expected at this time Restarted the anticoagulant and on Lovenox bridge No further bleeding or drainage is noted. Sutures in place Infection has responded very well to the antibiotics, extractions and the I and D. I requested that the patient continue with massage, heat and wound care. At this time the area is well healed and responded well to treatment. I will evaluated Deep on Friday as he should be ready to be D/C by then. I will follow him in my office thereafter. Results & Data Vital Signs (Past 12 Hours) Vital Signs Temp Pulse Pulse Pulse Resp BP Pulse Ox 06/05/24 11:09 36.7 C 66 18 129/71 95 06/05/24 07:40 36.7 C 62 14 157/79 H 97 06/05/24 02:59 36.5 C 65 20 134/67 97 06/05/24 00:48 61 O2 Del Method 06/05/24 11:09 Room Air 06/05/24 07:40 Room Air 06/05/24 02:59 Room Air 06/05/24 00:48 PG Care Time/CCT Total # of Minutes Spent Total Time Spent with Patient: Total time spent is greater than 50% in coordination of care (as documented) at patient's floor/unit and/or counseling patient: Coding Level of Care Code None
[2024-06-05] MEDS: ENOXAPARIN INJ 120 MG/0.8 ML SYR SC SCH (15:07)
[2024-06-05] MEDS: HYDROmorphone INJ 0.5 MG/0.5 ML SYR IV STA ×2 (15:24→21:15)
[2024-06-05] MEDS: MoRPHine SULFATE 2 MG/ML CARP IV STA ×2 (16:18→17:45)
[2024-06-05] MEDS: WARFARIN SOD 7.5 MG TAB PO SCH (17:14)
[2024-06-06] MEDS: ACETAMINOPHEN 1,000 MG/100 ML VIAL IV STA (00:20)
[2024-06-06] MEDS: KETOROLAC TROMETHAMINE 15 MG/ML VIAL IV ONE ×2 (03:05→06:27)
[2024-06-06 06:43] LABS: Hematocrit (blood only) 31.7 % (42.0-52.0); Hemoglobin 9.4 g/dl (14.0-18.0); Mean Corpuscular Hemoglobin 23.7 pg (25.0-34.0); Mean Corpuscular Hgb Conc 29.7 g/dL (32.0-36.0); Mean Corpuscular Volume 79.8 fL (80.0-100.0); Mean Platelet Volume 9.7 fL (9.4-12.4); Platelet Count 224 K/uL (130-400); RDW Coefficient of Variation 16.8 % (11.5-14.5); RDW Standard Deviation 48.4 fL (36.4-46.3); Red Blood Count 3.97 M/uL (4.70-6.10); White Blood Count 7.55 K/ul (4.8-10.8)
[2024-06-06] MEDS ORDERED: methylPREDNISolone 4 MG TAB PO SCH (07:00)
[2024-06-06 07:01] LABS: BUN Creatinine Ratio 16.9 (10-20); Calcium 8.7 mg/dl (8.6-10.3); Creatinine Clr Calc Pharmacy 162.4 ml/min; Est GFR (African American) 130.3 ml/min; Est GFR (Non-African American) 112.4 ml/min; Potassium 3.6 mmol/L (3.5-5.1)
[2024-06-06 07:23] LABS: INR 2.2 (0.9-1.1); Prothrombin Time 21.9 Seconds (9.0-12.0)
--- NOTE | 2024-06-06 07:56 | Hospitalist Progress Note ---
Date of Service June 06, 2024 Assessment & Plan (1) Fall: (2) Bacteremia: (3) Complicated UTI (urinary tract infection): (4) Ambulatory dysfunction: Plan Mr. Fong is a 38-year-old male with PMH type I aortic dissection 07/2014 secondary to marked aortopathy s/p emergent aortic valve and root replacement with mechanical valve, with post discharge complication of cardiac tamponade requiring thoracotomy, pericardial window 07/29/2014, chronic diastolic heart failure, LBBB, HTN, dyslipidemia, obesity s/p gastric bypass, anxiety, depression, history DDD and others listed below presented to ER with c/o back pain after mechanical fall 1.5 weeks ago and weakness x 3 days with chills, sweats. Patient was noted to have UTI and bacteremia likely from poor dentition. Patient was off warfarin to allow INR to trend down, with INR to 1.3 06/04. Patient tolerated procedure well. Patient given warfarin 15mg on 06/04 with plans to continue this dosing until theraputic. Plan was lovenox bridge then discharge home on 06/05, however, given unforeseen incident, patient unable to secure safe dispo and will remain admitted through the weekend. Post operative discomfort seems out of proportion and difficult to manage--scheduling tylenol and encourage po regimen with Oxy 10. Avoiding further ketorlac iso warfarin therapy Discontinued lovenox as INR goal 2-3 iso mechanical AVR. #Bacteremia 2/2 strep mitis/oralis #Poor dentition #Complicated UTI Pt presenting with chills and sweats, weakness after fall at home urine culture grew Klebsiella Blood Cx x 2 sets (02/04) 05/26: grew strep mitis/oralis Repeat Blood Cx 2 sets 05/28 NGTD Was initially on IV Zosyn and Vancomycin Infectious Disease consulted for further recs, appreciate recs. recommended/stated the following: -Recommend switching Vancomycin to Unasyn 3g q6 IV for now. - Anticipate 2 weeks of IV antibiotics from first negative blood culture Cardiology consulted in setting of bacteremia and Hx of mech valve -TTE without endocarditis -RAHEL on 05/28 without endocarditis as well Source of bacteremia likely dental, OMFS Dr Eubanks consulted. Appreciate further recs -Scheduled for extraction on 06/04, tolerated without issue Midline placed 06/05 ABX EOT 2 weeks from first negative blood culture per ID recs. EOT 06/11 Monitor closely given resumption of AC #Back pain #Fall #Degenerative Disc Disease CT Head: No acute intracranial hemorrhage, no evidence of acute territorial infarction or other acute intracranial disease process. CT C-Spine: No acute fracture CT Chest & Thoracic spine: No acute posttraumatic intrathoracic abnormality.No acute fracture or pneumothorax identified. Again seen is a Type A thoracic aortic dissection with postsurgical change as above. The postoperative appearance is likely unchanged from the 09/08/[address] lumbar spine: No evidence of acute abnormality and in particular no evidence of acute fracture. CT abd/pelvis:No evidence of acute abnormality and in particular no evidence of acute fracture. Chronic aortic dissection is unchanged. Status post cholecystomy. CT hip:No fracture or dislocation within the right hip. MRI Spine noting "Degenerative changes as above, most pronounced at L4-L5 and L5-S1. Edema and enhancement involving the L4-L5 facets on the right, likely degenerative/reactive." In ER given Flexeril and IV Tylenol with reported some improvement of back pain Scheduled IV Tylenol, oxycodone, Dilaudid, lidocaine patch as needed for pain Flexeril as needed for muscle spasm Ortho spine consulted appreciate recs Pain Management consulted, appreciate recs -completed brief steroid burst -s/p IV decadron x 1, symptoms resolved PT/OT: home #Iron deficiency Anemia *stable Denies CP, SOB, melena, hematochezia Hgb: 8.8. Baseline Hgb: 12 Obtain Hemoccult stool Anemia labs noting iron deficiency anemia On warfarin chronically Protonix twice daily Avoid NSAIDs May need to consider GI consult if positive Hemoccult s/p IV Venofer 200mg on 05/27, 1 bag #Hypocalcemia Ionized yaquelin decreased PTH low, Vit D normal supplement as needed #S/P AVR (aortic valve replacement) #Mechanical aortic valve #Chronic thoracic aortic dissection: #Anticoagulated on warfarin: #Chronic heart failure with preserved ejection fraction: PMH type I aortic dissection 07/2014 secondary to marked aortopathy s/p emergent aortic valve and root replacement with mechanical valve, with post discharge complication of cardiac tamponade requiring thoracotomy, pericardial window 07/29/2014 Chronic thoracic aortic dissection noted on imaging, stable Chronically anticoagulated on warfarin, follow PT/INR Continue metoprolol, Plavix, atorvastatin Monitor H&H Monitor INR Cardiology consulted as noted above Discontinue Lovenox Continue Warfarin 7.5mg INR daily until dispo #HTN (hypertension): Continue metoprolol, losartan #HLD (hyperlipidemia) Continue atorvastatin #Anxiety and depression Continue duloxetine #History of gastric bypass: #Obesity: Stable DVT Prophylaxis: Anticoagulated on warfarin Conditional Code, Wants CPR, defibrillation, medications but does not want intubation or mechanical ventilation as per discussion with pt Dispo: PT/OT home Admission and Anticipated Discharge Date Admission Date: May 26, 2024 Subjective INR 2.2 this am, goal 2-3 for mechanical AVR Given toradol overnight--will likely increase INR further, Pain seemingly difficult to control in Mr. Fong, also considering notable emotional distress from events day prior Reports notable improvement from day prior in pain control and stressors Denies new symptoms outside of postoperative discomfort Physical Exam Constitutional: WD/WN, vitals as above Respiratory: normal respiratory effort, lungs clear to auscultation Cardiovascular: audible mechanical click Gastrointestinal (Abdomen): normal bowel sounds, soft, nontender, no hepatosplenomegaly Musculoskeletal: no cyanosis or clubbing, extremities motor strength 5/5 Results & Data Results & Data Vital Signs (Past 12 Hours) Vital Signs Temp Pulse Pulse Pulse Resp BP BP 06/06/24 07:42 36.4 C L 55 L 16 131/61 06/06/24 03:40 36.4 C L 51 L 20 163/70 H 06/06/24 02:22 66 06/05/24 22:56 36.9 C 63 16 153/75 H 06/05/24 21:08 67 16 175/75 H Pulse Ox O2 Del Method 06/06/24 07:42 95 Room Air 06/06/24 03:40 98 Room Air 06/06/24 02:22 06/05/24 22:56 99 Room Air 06/05/24 21:08 97 Room Air Laboratory Results Short CBC 06/06/24 Range/Units 06:15 WBC 7.55 (4.8-10.8) K/ul Hgb 9.4 L (14.0-18.0) g/dl Hct 31.7 L (42.0-52.0) % Plt Count 224 (130-400) K/uL BMP 06/06/24 06:15 Sodium 137 Potassium 3.6 Chloride 102 Carbon Dioxide 30 BUN 14 Creatinine 0.83 Glucose 86 Calcium 8.7 Medications Administered Home Medications Medication Instructions Recorded Confirmed Last Taken clopidogrel 75 mg tablet 75 mg PO QAM 11/12/18 05/26/24 05/25/24 duloxetine 60 mg capsule,delayed 60 mg PO DAILY 11/12/18 05/26/24 05/25/24 release warfarin 5 mg tablet See Rx Instructions .Route .COMPLEX 12/06/19 05/26/24 05/25/24 duloxetine 30 mg capsule,delayed 30 mg PO DAILY 03/11/21 05/26/24 05/25/24 release acetaminophen 500 mg tablet 1,000 mg PO Q6H PRN Pain 04/08/21 05/26/24 05/25/24 (Tylenol Extra Strength) multivitamin 1 tab PO DAILY 04/20/21 05/26/24 05/25/24 atorvastatin 10 mg tablet 10 mg PO HS 05/26/24 05/26/24 05/25/24 cholecalciferol (vitamin D3) 125 125 mcg PO DAILY 05/26/24 05/26/24 05/25/24 mcg (5,000 unit) tablet (Vitamin D3) losartan 50 mg tablet 50 mg PO BID 05/26/24 05/26/24 05/25/24 metoprolol tartrate 25 mg tablet 75 mg PO BID 05/26/24 05/26/24 05/25/24 Active Medications Generic Name Dose Route Start Last Admin Trade Name Nerissa PRN Reason Stop Dose Admin Atorvastatin Calcium 10 mg 05/26/24 21:00 06/05/24 20:17 Atorvastatin 10 Mg Tab PO 06/25/24 20:59 10 mg HS VIRGEN Administration Clopidogrel Bisulfate 75 mg 05/27/24 09:00 06/05/24 08:30 Clopidogrel Bisulfate 75 Mg Tab PO 06/26/24 08:59 75 mg QAM VIRGEN Administration Cyclobenzaprine HCl 10 mg 05/26/24 14:49 06/04/24 01:12 Cyclobenzaprine Hcl 10 Mg Tab PO 06/25/24 14:48 10 mg TID PRN Administration Muscle Spasm Duloxetine HCl 30 mg 05/27/24 09:00 06/05/24 08:33 Duloxetine Hcl 30 Mg Cap PO 06/26/24 08:59 30 mg DAILY VIRGEN Administration Duloxetine HCl 60 mg 05/27/24 09:00 06/05/24 08:32 Duloxetine Hcl 60 Mg Cap PO 06/26/24 08:59 60 mg DAILY VIRGEN Administration Pantoprazole Sodium 40 mg/ 10 mls @ 5 mls/min 05/26/24 21:00 06/05/24 20:18 Syringe IV 06/25/24 20:59 5 mls/min BID VIRGEN Administration Ampicillin Sodium/Sulbactam 100 mls @ 100 mls/hr 05/28/24 17:00 06/06/24 07:12 Sodium 3,000 mg/ Sodium IV 06/11/24 16:59 Infused Chloride Q6H VIRGEN Infusion Lidocaine 1 patch 05/27/24 17:30 06/05/24 08:34 Lidocaine 5% 1 Patch TD 06/26/24 17:29 1 patch QAM VIRGEN Administration Losartan Potassium 25 mg 06/04/24 09:00 06/05/24 08:33 Losartan Potassium 25 Mg Tab PO 07/04/24 08:59 25 mg QAM VIRGEN Administration Metoprolol Succinate 100 mg 06/03/24 09:00 06/05/24 08:31 Metoprolol Succ 50mg Ext Rel Tab PO 07/03/24 08:59 100 mg QAM VIRGEN Administration Metoprolol Succinate 50 mg 06/02/24 21:00 06/05/24 20:17 Metoprolol Succ 50mg Ext Rel Tab PO 07/02/24 20:59 50 mg QPM VIRGEN Administration Miscellaneous 1 each 05/27/24 21:00 06/05/24 20:20 Remove Lidoderm Patch N/A 06/26/24 20:59 Not Given DAILY@2100 VIRGEN Multivitamins 1 tab 05/27/24 09:00 06/05/24 08:32 Multivitamin Tab PO 06/26/24 08:59 1 tab DAILY VIRGEN Administration Vitamin D 125 mcg 05/27/24 09:00 06/05/24 08:34 Cholecalciferol 125 Mcg (5,000 Units) Tab PO 06/26/24 08:59 125 mcg DAILY VIRGEN Administration Warfarin Sodium 7.5 mg 06/05/24 16:55 06/05/24 17:14 Warfarin Sod 7.5 Mg Tab PO 07/05/24 16:54 7.5 mg DAILY@1600 VIRGEN Administration (1) Fall Encounter type: initial encounter Qualified Code(s): W19.XXXA - Unspecified fall, initial encounter
[2024-06-06] MEDS: ACETAMINOPHEN 500 MG TAB PO SCH (09:43)
[2024-06-06] MEDS: oxyCODONE HCL IR 5 MG TAB (IMMEDIATE RELEASE) PO PRN (09:55)
--- NOTE | 2024-06-06 10:17 | Cardiology Progress Note ---
Date of Service June 06, 2024 Assessment & Plan (1) Bacteremia: (2) H/O mechanical aortic valve replacement: (3) Complicated UTI (urinary tract infection): (4) Chronic heart failure with preserved ejection fraction: (5) History of aortic dissection: (6) Anemia: (7) Poor dentition: Plan Complex 38 year old male with history of type I aortic dissection in 07/2014 secondary to marked aortopathy status post emergent aortic valve and root replacement with mechanical valve, with post discharge complication of cardiac tamponade requiring thoracotomy, pericardial window 07/29/2014, chronic diastolic heart failure, LBBB, hypertension, dyslipidemia, and obesity s/p gastric bypass. 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 INR Goal 2.5 to 3.0. Patient presented to [facility] following a mechanical fall 1.5 weeks prior, with severe acute on chronic back pain, weakness, fevers, and chills. Workup revealed gram-positive bacteremia, probable dental source and suspected etiology to intermittent diaphoresis episodes (or perhaps duloxetine), and a complicated UTI. Transesophageal echocardiography demonstrated normal mechanical prosthetic aortic valve function without evidence of vegetation. Infectious disease has recommended 2 weeks of antibiotics from first negative blood culture. Status post June 04, 2024 dental extractions (3, 5, 13, 16, 17, 20, 32) and right lower facial I&D by Dr. Eubanks. Recommendations: 1. Cardiac medications as prescribed. 2. Losartan reduced this admission due to hypotension. 3. Lopressor changed to Toprol XL. 4. Outpatient Cardiology follow-up. Patient scheduled to be seen by Dr. Dupont on 07/30/2024 at 8:30 AM 5. Please contact with any questions or concerns. Admission and Anticipated Discharge Date Admission Date: May 26, 2024 Supervising Physician Co-Signing Physician Notes Patient was seen and personally examined. Chart current and past records reviewed assessment and plan as above. Complex 38-year-old male status post type I acute aortic dissection and subsequent aortic valve replacement with mechanical valve. Admitted with back pain but subsequently observed bacteremia found possible dental origin Patient underwent dental surgery Rough night secondary to oral pain otherwise stable Medication adjustments and plan as noted. Oral anticoagulation begun. Patient on large dose warfarin at home and will chronically require similar dosin IV heparin until INR greater than 2.5 Iron deficiency anemia noted would consider instituting multivitamin with iron on discharge given gastric bypass surgery I spent a total of 15 minutes on the date of service in preparation, delivery, and documentation of the care provided to this patient exclu Subjective Patient seen and examined. Chart, medications, and telemetry reviewed. Increased pain. "I'm glad I stayed." No chest pain, dyspnea, or palpitations. INR 2.2 Telemetry: Sinus throughout with heart rates ranging from 40 to 130 bpm. Review of Systems Review of Systems: Complete Review of Systems is as stated above, negative, or noncontributory. Physical Exam Physical Exam: General: Lethargic. NAD. Neck: No JVD. Heart: Regular. [place] mechanical valve sounds. Grade II systolic ejection murmur. No diastolic murmur. Lungs: Clear to auscultation. Abdomen: +BS. Nontender. No organomegaly. Extremities: No edema. Limited neurological examination is without focal deficits. Pulses: Posterior tibial=2/4. Results & Data Vital Signs (Past 12 Hours) Vital Signs Temp Pulse Pulse Pulse Resp BP BP 06/06/24 07:42 36.4 C L 55 L 16 131/61 06/06/24 03:40 36.4 C L 51 L 20 163/70 H 06/06/24 02:22 66 06/05/24 22:56 36.9 C 63 16 153/75 H Pulse Ox O2 Del Method 06/06/24 07:42 95 Room Air 06/06/24 03:40 98 Room Air 06/06/24 02:22 06/05/24 22:56 99 Room Air Laboratory Results Coagulation 06/06/24 Range/Units 06:15 PT 21.9 H (9.0-12.0) Seconds CBC 06/06/24 Range/Units 06:15 WBC 7.55 (4.8-10.8) K/ul RBC 3.97 L (4.70-6.10) M/uL Hgb 9.4 L (14.0-18.0) g/dl Hct 31.7 L (42.0-52.0) % Plt Count 224 (130-400) K/uL Comprehensive Metabolic Panel 06/06/24 Range/Units 06:15 Sodium 137 (136-145) mmol/L Potassium 3.6 (3.5-5.1) mmol/L Chloride 102 (98-107) mmol/L Carbon Dioxide 30 (21-32) mmol/L BUN 14 (6-23) mg/dl Creatinine 0.83 (0.6-1.4) mg/dl Glucose 86 (70-99(Fasting)) mg/dl Calcium 8.7 (8.6-10.3) mg/dl Intake and Output 06/05/24 06/06/24 06/06/24 22:59 06:59 14:59 Intake Total 600 / 700 100 / 700 100 / 100 Balance 600 / 700 100 / 700 100 / 100 Intake: IV 300 / 400 100 / 400 100 / 100 Acetaminophen 1,000 mg In 100 100 / 100 ml @ 400 mls/hr IV NOW STA Rx#: [id number] Ampicillin/Sulbactam Sod 3,000 300 / 300 100 / 100 mg In Sodium Chlor 0.9% Mini-B 100 ml @ 100 mls/hr IV Q6H VIRGEN Rx#:[id number] Lactated Ringer's 1,000 ml @ 0 / 0 KVO IV .Q0M VIRGEN Rx#:[id number] Oral 300 / 300 Other: # Unmeasured Voids 1 1 Weight 119.2 kg (6) Anemia Anemia type: unspecified type Qualified Code(s): D64.9 - Anemia, unspecified
[2024-06-06] MEDS: HYDROmorphone INJ 1 MG/ML SYRINGE IV PRN (11:19)
--- NOTE | 2024-06-06 12:30 | Oral/Maxillofacial Progress Nt ---
Date of Service June 06, 2024 Assessment & Plan Admission and Anticipated Discharge Date Admission Date: May 26, 2024 Subjective POST OP NOTE at 48 at 48 hours there is development of superficial clots over the extraction sites. This is the result of getting the INR back to therapeutic levels with the bridging of the Lovenox. Hopefully this will not result in any bleeding! I told Deep that he must be careful to not disturb the sites. Any minor bleeding can be controlled with gauze pressure over the sites. Once the Lovenox is stopped the clotting should stabilize. I will see Deep tomorrow AM if the plan is for D/C. Results & Data Vital Signs (Past 12 Hours) Vital Signs Temp Pulse Pulse Pulse Resp BP BP 06/06/24 10:34 36.5 C 71 16 131/70 06/06/24 08:00 53 L 06/06/24 07:42 36.4 C L 55 L 16 131/61 06/06/24 03:40 36.4 C L 51 L 20 163/70 H 06/06/24 02:22 66 Pulse Ox O2 Del Method 06/06/24 10:34 96 Room Air 06/06/24 08:00 06/06/24 07:42 95 Room Air 06/06/24 03:40 98 Room Air 06/06/24 02:22 PG Care Time/CCT Total # of Minutes Spent Total Time Spent with Patient: Total time spent is greater than 50% in coordination of care (as documented) at patient's floor/unit and/or counseling patient: Coding Level of Care Code 56623 SUB INP/OBS CARE 1/25MIN
[2024-06-06] MEDS: LORazepam 1 MG TAB PO STA (15:06)
[2024-06-06] MEDS ORDERED: WARFARIN SOD 7.5 MG TAB PO SCH (16:00)
[2024-06-07] MEDS ORDERED: methylPREDNISolone 4 MG TAB PO SCH (07:00)
[2024-06-07 07:22] LABS: INR 2.6 (0.9-1.1); Prothrombin Time 25.6 Seconds (9.0-12.0)
--- NOTE | 2024-06-07 09:39 | Oral/Maxillofacial Progress Nt ---
Date of Service June 07, 2024 Assessment & Plan Admission and Anticipated Discharge Date Admission Date: May 26, 2024 Subjective Doing very well Bleeding is controlled with stable clotting and sutures in place OK for D/C as per oral surgery He has my office information if he wants to see me for follow up in the future. Suggested he find a dentist for ongoing care. Results & Data Vital Signs (Past 12 Hours) Vital Signs Temp Pulse Pulse Pulse Resp BP Pulse Ox 06/07/24 07:35 37 C 61 18 157/79 H 97 06/07/24 07:26 72 06/07/24 03:18 37.4 C 69 20 149/69 H 99 06/07/24 00:31 63 06/06/24 22:39 36.9 C 57 L 16 156/69 H 96 O2 Del Method 06/07/24 07:35 Room Air 06/07/24 07:26 06/07/24 03:18 Room Air 06/07/24 00:31 06/06/24 22:39 Room Air PG Care Time/CCT Total # of Minutes Spent Total Time Spent with Patient: Total time spent is greater than 50% in coordination of care (as documented) at patient's floor/unit and/or counseling patient: Coding Level of Care Code None
--- NOTE | 2024-06-07 10:07 | Hospitalist Progress Note ---
Date of Service June 07, 2024 Assessment & Plan (1) Fall: (2) Bacteremia: (3) Complicated UTI (urinary tract infection): (4) Ambulatory dysfunction: Plan Mr. Fong is a 38-year-old male with PMH type I aortic dissection 07/2014 secondary to marked aortopathy s/p emergent aortic valve and root replacement with mechanical valve, with post discharge complication of cardiac tamponade requiring thoracotomy, pericardial window 07/29/2014, chronic diastolic heart failure, LBBB, HTN, dyslipidemia, obesity s/p gastric bypass, anxiety, depression, history DDD and others listed below presented to ER with c/o back pain after mechanical fall 1.5 weeks ago and weakness x 3 days with chills, sweats. Patient was noted to have UTI and bacteremia likely from poor dentition. Patient was off warfarin to allow INR to trend down, with INR to 1.3 06/04. Patient tolerated procedure well. Patient given warfarin 15mg on 06/04 with plans to continue this dosing until theraputic. Plan was lovenox bridge then discharge home on 06/05, however, given unforeseen incident, patient unable to secure safe dispo and will remain admitted through the weekend. Post operative discomfort seems out of proportion and difficult to manage--scheduling tylenol and encourage po regimen with Oxy 10. Avoiding further ketorlac iso warfarin therapy Discontinued lovenox as INR goal 2-3 iso mechanical AVR. Plan for discharge tomorrow am when antibiotics delivered. #Diarrhea c diff ordered no abdominal pain or cramping, but increasing loose stools Bacteremia 2/2 strep mitis/oralis #Poor dentition #Complicated UTI Pt presenting with chills and sweats, weakness after fall at home urine culture grew Klebsiella Blood Cx x 2 sets (02/04) 05/26: grew strep mitis/oralis Repeat Blood Cx 2 sets 05/28 NGTD Was initially on IV Zosyn and Vancomycin Infectious Disease consulted for further recs, appreciate recs. recommended/stated the following: -Recommend switching Vancomycin to Unasyn 3g q6 IV for now. - Anticipate 2 weeks of IV antibiotics from first negative blood culture Cardiology consulted in setting of bacteremia and Hx of mech valve -TTE without endocarditis -RAHEL on 05/28 without endocarditis as well Source of bacteremia likely dental, OMFS Dr Eubanks consulted. Appreciate further recs -Scheduled for extraction on 06/04, tolerated without issue Midline placed 06/05 ABX EOT 2 weeks from first negative blood culture per ID recs. EOT 06/11 Monitor closely given resumption of AC #Back pain #Fall #Degenerative Disc Disease CT Head: No acute intracranial hemorrhage, no evidence of acute territorial infarction or other acute intracranial disease process. CT C-Spine: No acute fracture CT Chest & Thoracic spine: No acute posttraumatic intrathoracic abnormality.No acute fracture or pneumothorax identified. Again seen is a Type A thoracic aortic dissection with postsurgical change as above. The postoperative appearance is likely unchanged from the 09/08/[address] lumbar spine: No evidence of acute abnormality and in particular no evidence of acute fracture. CT abd/pelvis:No evidence of acute abnormality and in particular no evidence of acute fracture. Chronic aortic dissection is unchanged. Status post cholecystomy. CT hip:No fracture or dislocation within the right hip. MRI Spine noting "Degenerative changes as above, most pronounced at L4-L5 and L5-S1. Edema and enhancement involving the L4-L5 facets on the right, likely degenerative/reactive." In ER given Flexeril and IV Tylenol with reported some improvement of back pain Scheduled IV Tylenol, oxycodone, Dilaudid, lidocaine patch as needed for pain Flexeril as needed for muscle spasm Ortho spine consulted appreciate recs Pain Management consulted, appreciate recs -completed brief steroid burst -s/p IV decadron x 1, symptoms resolved PT/OT: home #Iron deficiency Anemia *stable Denies CP, SOB, melena, hematochezia Hgb: 8.8. Baseline Hgb: 12 s/p IV Venofer 200mg on 05/27, 1 bag Anemia labs noting iron deficiency anemia On warfarin chronically Protonix twice daily Avoid NSAIDs #Hypocalcemia Ionized yaquelin decreased PTH low, Vit D normal supplement as needed #S/P AVR (aortic valve replacement) #Mechanical aortic valve #Chronic thoracic aortic dissection: #Anticoagulated on warfarin: #Chronic heart failure with preserved ejection fraction: PMH type I aortic dissection 07/2014 secondary to marked aortopathy s/p emergent aortic valve and root replacement with mechanical valve, with post discharge co mplication of cardiac tamponade requiring thoracotomy, pericardial window 07/29/2014 Chronic thoracic aortic dissection noted on imaging, stable Chronically anticoagulated on warfarin, follow PT/INR Continue metoprolol, Plavix, atorvastatin Monitor H&H Monitor INR Cardiology consulted as noted above Discontinue Lovenox Reduced Warfarin to 5mg INR daily until dispo #HTN (hypertension): Continue metoprolol, losartan #HLD (hyperlipidemia) Continue atorvastatin #Anxiety and depression Continue duloxetine #History of gastric bypass: #Obesity: Stable DVT Prophylaxis: Anticoagulated on warfarin Conditional Code, Wants CPR, defibrillation, medications but does not want intubation or mechanical ventilation as per discussion with pt Dispo: PT/OT home Admission and Anticipated Discharge Date Admission Date: May 26, 2024 Subjective NAEO Patient with intermittent diaphoresis however afebrile Denies subjective fever or other symptoms like rigors Endorses loose stool Denies any bleeding Plan for dispo tomorrow am Physical Exam Constitutional: WD/WN, vitals as above Respiratory: normal respiratory effort, lungs clear to auscultation Cardiovascular: mechanical click, SILVIA+ Gastrointestinal (Abdomen): normal bowel sounds, soft, nontender, no hepatosplenomegaly Results & Data Results & Data Vital Signs (Past 12 Hours) Vital Signs Temp Pulse Pulse Pulse Resp BP Pulse Ox 06/07/24 07:35 37 C 61 18 157/79 H 97 06/07/24 07:26 72 06/07/24 03:18 37.4 C 69 20 149/69 H 99 06/07/24 00:31 63 06/06/24 22:39 36.9 C 57 L 16 156/69 H 96 O2 Del Method 06/07/24 07:35 Room Air 06/07/24 07:26 06/07/24 03:18 Room Air 06/07/24 00:31 06/06/24 22:39 Room Air Laboratory Results INR reviewed at 2.6 Medications Administered Home Medications Medication Instructions Recorded Confirmed Last Taken clopidogrel 75 mg tablet 75 mg PO QAM 11/12/18 05/26/24 05/25/24 duloxetine 60 mg capsule,delayed 60 mg PO DAILY 11/12/18 05/26/24 05/25/24 release warfarin 5 mg tablet See Rx Instructions .Route .COMPLEX 12/06/19 05/26/24 05/25/24 duloxetine 30 mg capsule,delayed 30 mg PO DAILY 03/11/21 05/26/24 05/25/24 release acetaminophen 500 mg tablet 1,000 mg PO Q6H PRN Pain 04/08/21 05/26/24 05/25/24 (Tylenol Extra Strength) multivitamin 1 tab PO DAILY 04/20/21 05/26/24 05/25/24 atorvastatin 10 mg tablet 10 mg PO HS 05/26/24 05/26/24 05/25/24 cholecalciferol (vitamin D3) 125 125 mcg PO DAILY 05/26/24 05/26/24 05/25/24 mcg (5,000 unit) tablet (Vitamin D3) losartan 50 mg tablet 50 mg PO BID 05/26/24 05/26/24 05/25/24 metoprolol tartrate 25 mg tablet 75 mg PO BID 05/26/24 05/26/24 05/25/24 Active Medications Generic Name Dose Route Start Last Admin Trade Name Freq PRN Reason Stop Dose Admin Acetaminophen 1,000 mg 06/06/24 08:00 06/07/24 08:05 Acetaminophen 500 Mg Tab PO 07/06/24 07:59 1,000 mg Q8H VIRGEN Administration Atorvastatin Calcium 10 mg 05/26/24 21:00 06/06/24 20:52 Atorvastatin 10 Mg Tab PO 06/25/24 20:59 10 mg HS VIRGEN Administration Clopidogrel Bisulfate 75 mg 05/27/24 09:00 06/07/24 08:01 Clopidogrel Bisulfate 75 Mg Tab PO 06/26/24 08:59 75 mg QAM VIRGEN Administration Cyclobenzaprine HCl 10 mg 05/26/24 14:49 06/04/24 01:12 Cyclobenzaprine Hcl 10 Mg Tab PO 06/25/24 14:48 10 mg TID PRN Administration Muscle Spasm Duloxetine HCl 30 mg 05/27/24 09:00 06/07/24 08:01 Duloxetine Hcl 30 Mg Cap PO 06/26/24 08:59 30 mg DAILY VIRGEN Administration Duloxetine HCl 60 mg 05/27/24 09:00 06/07/24 08:01 Duloxetine Hcl 60 Mg Cap PO 06/26/24 08:59 60 mg DAILY VIRGEN Administration Hydromorphone HCl 1 mg 06/06/24 07:26 06/07/24 05:32 Hydromorphone Inj 1 Mg/Ml Syringe IV 06/20/24 07:25 1 mg Q5H PRN Administration Severe Pain (Scale 7, 8, 9,10) Pantoprazole Sodium 40 mg/ 10 mls @ 5 mls/min 05/26/24 21:00 06/07/24 08:01 Syringe IV 06/25/24 20:59 5 mls/min BID VIRGEN Administration Ampicillin Sodium/Sulbactam 100 mls @ 100 mls/hr 05/28/24 17:00 06/07/24 06:13 Sodium 3,000 mg/ Sodium IV 06/11/24 16:59 Infused Chloride Q6H VIRGEN Infusion Lidocaine 1 patch 05/27/24 17:30 06/07/24 08:01 Lidocaine 5% 1 Patch TD 06/26/24 17:29 1 patch QAM VIRGEN Administration Losartan Potassium 25 mg 06/04/24 09:00 06/07/24 08:01 Losartan Potassium 25 Mg Tab PO 07/04/24 08:59 25 mg QAM VIRGEN Administration Metoprolol Succinate 100 mg 06/03/24 09:00 06/07/24 08:00 Metoprolol Succ 50mg Ext Rel Tab PO 07/03/24 08:59 100 mg QAM VIRGEN Administration Metoprolol Succinate 50 mg 06/02/24 21:00 06/06/24 20:53 Metoprolol Succ 50mg Ext Rel Tab PO 07/02/24 20:59 50 mg QPM VIRGEN Administration Miscellaneous 1 each 05/27/24 21:00 06/06/24 20:59 Remove Lidoderm Patch N/A 06/26/24 20:59 1 each DAILY@2100 VIRGEN Administration Multivitamins 1 tab 05/27/24 09:00 06/07/24 08:01 Multivitamin Tab PO 06/26/24 08:59 1 tab DAILY VIRGEN Administration Oxycodone HCl 10 mg 06/06/24 07:18 06/07/24 04:19 Oxycodone Hcl Ir 5 Mg Tab (Immediate Release) PO 06/20/24 07:17 10 mg Q4H PRN Administration Moderate Pain (Scale 4, 5, 6) Vitamin D 125 mcg 05/27/24 09:00 06/07/24 08:00 Cholecalciferol 125 Mcg (5,000 Units) Tab PO 06/26/24 08:59 125 mcg DAILY VIRGEN Administration Warfarin Sodium 7.5 mg 06/05/24 16:55 06/06/24 17:03 Warfarin Sod 7.5 Mg Tab PO 07/05/24 16:54 7.5 mg DAILY@1600 VIRGEN Administration (1) Fall Encounter type: initial encounter Qualified Code(s): W19.XXXA - Unspecified fall, initial encounter
[2024-06-07] MEDS ORDERED: methylPREDNISolone 4 MG TAB, 6 DAY TAPER PO SCH (12:15)
[2024-06-07] MEDS: methylPREDNISolone 4 MG TAB PO SCH ×2 (13:44→14:56)
[2024-06-07] MEDS: WARFARIN SOD 5 MG TAB PO SCH (14:58)
[2024-06-08] MEDS: methylPREDNISolone 4 MG TAB PO SCH ×2 (06:07→20:33)
[2024-06-08] MEDS ORDERED: methylPREDNISolone 4 MG TAB PO SCH (07:00)
[2024-06-08 07:57] LABS: Hematocrit (blood only) 31.4 % (42.0-52.0); Hemoglobin 9.5 g/dl (14.0-18.0); Mean Corpuscular Hemoglobin 23.7 pg (25.0-34.0); Mean Corpuscular Hgb Conc 30.3 g/dL (32.0-36.0); Mean Corpuscular Volume 78.3 fL (80.0-100.0); Mean Platelet Volume 10.8 fL (9.4-12.4); Platelet Count 273 K/uL (130-400); RDW Coefficient of Variation 17.5 % (11.5-14.5); RDW Standard Deviation 49.1 fL (36.4-46.3); Red Blood Count 4.01 M/uL (4.70-6.10); White Blood Count 7.07 K/ul (4.8-10.8)
[2024-06-08 08:06] LABS: Creatinine Clr Calc Pharmacy 194.3 ml/min; Est GFR (African American) 140.6 ml/min; Est GFR (Non-African American) 121.3 ml/min
[2024-06-08 08:12] LABS: INR 2.3 (0.9-1.1); Prothrombin Time 23.3 Seconds (9.0-12.0)
[2024-06-08] MEDS: PROMETHAZINE HCL 6.25 MG in SODIUM CHLORIDE 0.9% 50 ML IV PRN (10:35)
--- NOTE | 2024-06-08 10:50 | Hospitalist Progress Note ---
Date of Service June 08, 2024 Assessment & Plan (1) Fall: (2) Bacteremia: (3) Complicated UTI (urinary tract infection): (4) Ambulatory dysfunction: Plan Mr. Fong is a 38-year-old male with PMH type I aortic dissection 07/2014 secondary to marked aortopathy s/p emergent aortic valve and root replacement with mechanical valve, with post discharge complication of cardiac tamponade requiring thoracotomy, pericardial window 07/29/2014, chronic diastolic heart failure, LBBB, HTN, dyslipidemia, obesity s/p gastric bypass, anxiety, depression, history DDD and others listed below presented to ER with c/o back pain after mechanical fall 1.5 weeks ago and weakness x 3 days with chills, sweats. Patient was noted to have UTI and bacteremia likely from poor dentition. Patient was off warfarin to allow INR to trend down, with INR to 1.3 06/04. Patient tolerated procedure well. Patient given warfarin 15mg on 06/04 with plans to continue this dosing until theraputic. Plan was lovenox bridge then discharge home on 06/05, however, given unforeseen incident, patient unable to secure safe dispo and will remain admitted through the weekend. Post operative discomfort seems out of proportion and difficult to manage--scheduling tylenol and encourage po regimen with Oxy 10. Avoiding further ketorlac iso warfarin therapy Discontinued lovenox as INR goal 2-3 iso mechanical AVR. Patient to discharge with home infusion, however, unable to secure funds for copay and EOT 06/11. Working with case management for best options. #Diarrhea resolved no further episodes #Bacteremia 2/2 strep mitis/oralis #Poor dentition #Complicated UTI Pt presenting with chills and sweats, weakness after fall at home urine culture grew Klebsiella Blood Cx x 2 sets (02/04) 05/26: grew strep mitis/oralis Repeat Blood Cx 2 sets 05/28 NGTD Was initially on IV Zosyn and Vancomycin Infectious Disease consulted for further recs, appreciate recs. recommended/stated the following: -Recommend switching Vancomycin to Unasyn 3g q6 IV for now. - Anticipate 2 weeks of IV antibiotics from first negative blood culture Cardiology consulted in setting of bacteremia and Hx of mech valve -TTE without endocarditis -RAHEL on 05/28 without endocarditis as well Source of bacteremia likely dental, [facility] Dr Eubanks consulted. Appreciate further recs -Scheduled for extraction on 06/04, tolerated without issue Midline placed 06/05 ABX EOT 2 weeks from first negative blood culture per ID recs. EOT 06/11 Dispo planning thwarted secondary to inability to find credit card for copay, Case management involved in dispo planning #Back pain #Fall #Degenerative Disc Disease CT Head: No acute intracranial hemorrhage, no evidence of acute territorial infarction or other acute intracranial disease process. CT C-Spine: No acute fracture CT Chest & Thoracic spine: No acute posttraumatic intrathoracic abnormality.No acute fracture or pneumothorax identified. Again seen is a Type A thoracic aortic dissection with postsurgical change as above. The postoperative appearance is likely unchanged from the 09/08/[address] lumbar spine: No evidence of acute abnormality and in particular no evidence of acute fracture. CT abd/pelvis:No evidence of acute abnormality and in particular no evidence of acute fracture. Chronic aortic dissection is unchanged. Status post cholecystomy. CT hip:No fracture or dislocation within the right hip. MRI Spine noting "Degenerative changes as above, most pronounced at L4-L5 and L5-S1. Edema and enhancement involving the L4-L5 facets on the right, likely d egenerative/reactive." In ER given Flexeril and IV Tylenol with reported some improvement of back pain Scheduled IV Tylenol, oxycodone, Dilaudid, lidocaine patch as needed for pain Flexeril as needed for muscle spasm Ortho spine consulted appreciate recs Pain Management consulted, appreciate recs -completed brief steroid burst; restarted medrol dose pack given return of pain PT/OT: home #Iron deficiency Anemia *stable Denies CP, SOB, melena, hematochezia Hgb: 8.8. Baseline Hgb: 12 s/p IV Venofer 200mg on 05/27, 1 bag Anemia labs noting iron deficiency anemia On warfarin chronically Protonix twice daily, transition to po upon d/c Avoid NSAIDs #Hypocalcemia Ionized yaquelin decreased PTH low, Vit D normal supplement as needed #S/P AVR (aortic valve replacement) #Mechanical aortic valve #Chronic thoracic aortic dissection: #Anticoagulated on warfarin: #Chronic heart failure with preserved ejection fraction: PMH type I aortic dissection 07/2014 secondary to marked aortopathy s/p emergent aortic valve and root replacement with mechanical valve, with post discharge complication of cardiac tamponade requiring thoracotomy, pericardial window 07/29/2014 Chronic thoracic aortic dissection noted on imaging, stable Chronically anticoagulated on warfarin, follow PT/INR Continue metoprolol, Plavix, atorvastatin Monitor H&H Monitor INR Cardiology consulted as noted above Discontinue Lovenox Warfarin 7.5mg today INR daily until dispo #HTN (hypertension): Continue metoprolol, losartan #HLD (hyperlipidemia) Continue atorvastatin #Anxiety and depression Continue duloxetine #History of gastric bypass: #Obesity: Stable DVT Prophylaxis: Anticoagulated on warfarin Conditional Code, Wants CPR, defibrillation, medications but does not want intubation or mechanical ventilation as per discussion with pt Dispo: PT/OT home Admission and Anticipated Discharge Date Admission Date: May 26, 2024 Subjective NAEO Patient unable to find wallet to pay copay for antibiotics. Patient with 3 more days of therapy Denies any further post op discomfort, any signs of bleeding or other acute concerns Physical Exam Constitutional: WD/WN, vitals as above Respiratory: normal respiratory effort, lungs clear to auscultation Cardiovascular: mechanical click Gastrointestinal (Abdomen): normal bowel sounds, soft, nontender, no hepatosplenomegaly Results & Data Results & Data Vital Signs (Past 12 Hours) Vital Signs Temp Pulse Pulse Pulse Resp BP Pulse Ox 06/08/24 10:35 36.8 C 65 17 121/73 99 06/08/24 07:32 62 06/08/24 07:27 36.7 C 75 17 112/64 99 06/08/24 03:47 36.6 C 58 L 16 98/60 L 98 06/07/24 22:58 36.6 C 68 18 131/75 99 O2 Del Method 06/08/24 10:35 Room Air 06/08/24 07:32 06/08/24 07:27 Room Air 06/08/24 03:47 Room Air 06/07/24 22:58 Room Air Laboratory Results Short CBC 06/08/24 Range/Units 06:47 WBC 7.07 (4.8-10.8) K/ul Hgb 9.5 L (14.0-18.0) g/dl Hct 31.4 L (42.0-52.0) % Plt Count 273 (130-400) K/uL BMP 06/08/24 06:47 Creatinine 0.69 Medications Administered Home Medications Medication Instructions Recorded Confirmed Last Taken clopidogrel 75 mg tablet 75 mg PO QAM 11/12/18 05/26/24 05/25/24 duloxetine 60 mg capsule,delayed 60 mg PO DAILY 11/12/18 05/26/24 05/25/24 release warfarin 5 mg tablet See Rx Instructions .Route .COMPLEX 12/06/19 05/26/24 05/25/24 duloxetine 30 mg capsule,delayed 30 mg PO DAILY 03/11/21 05/26/24 05/25/24 release acetaminophen 500 mg tablet 1,000 mg PO Q6H PRN Pain 04/08/21 05/26/24 05/25/24 (Tylenol Extra Strength) multivitamin 1 tab PO DAILY 04/20/21 05/26/24 05/25/24 atorvastatin 10 mg tablet 10 mg PO HS 05/26/24 05/26/24 05/25/24 cholecalciferol (vitamin D3) 125 125 mcg PO DAILY 05/26/24 05/26/24 05/25/24 mcg (5,000 unit) tablet (Vitamin D3) losartan 50 mg tablet 50 mg PO BID 05/26/24 05/26/24 05/25/24 metoprolol tartrate 25 mg tablet 75 mg PO BID 05/26/24 05/26/24 05/25/24 Active Medications Generic Name Dose Route Start Last Admin Trade Name Freq PRN Reason Stop Dose Admin Acetaminophen 1,000 mg 06/06/24 08:00 06/08/24 09:23 Acetaminophen 500 Mg Tab PO 07/06/24 07:59 1,000 mg Q8H VIRGEN Administration Atorvastatin Calcium 10 mg 05/26/24 21:00 06/07/24 20:57 Atorvastatin 10 Mg Tab PO 06/25/24 20:59 10 mg HS VIRGEN Administration Clopidogrel Bisulfate 75 mg 05/27/24 09:00 06/08/24 09:23 Clopidogrel Bisulfate 75 Mg Tab PO 06/26/24 08:59 75 mg QAM VIRGEN Administration Cyclobenzaprine HCl 10 mg 05/26/24 14:49 06/04/24 01:12 Cyclobenzaprine Hcl 10 Mg Tab PO 06/25/24 14:48 10 mg TID PRN Administration Muscle Spasm Duloxetine HCl 30 mg 05/27/24 09:00 06/08/24 09:22 Duloxetine Hcl 30 Mg Cap PO 06/26/24 08:59 30 mg DAILY VIRGEN Administration Duloxetine HCl 60 mg 05/27/24 09:00 06/08/24 09:22 Duloxetine Hcl 60 Mg Cap PO 06/26/24 08:59 60 mg DAILY VIRGEN Administration Hydromorphone HCl 1 mg 06/06/24 07:26 06/08/24 07:32 Hydromorphone Inj 1 Mg/Ml Syringe IV 06/20/24 07:25 1 mg Q5H PRN Administration Severe Pain (Scale 7, 8, 9,10) Promethazine HCl 6.25 mg/ 50.25 mls @ 201 mls/hr 05/26/24 14:49 06/08/24 10:35 Sodium Chloride IV 06/25/24 14:48 201 mls/hr Q6H PRN Administration Nausea And Vomiting Pantoprazole Sodium 40 mg/ 10 mls @ 5 mls/min 05/26/24 21:00 06/08/24 09:24 Syringe IV 06/25/24 20:59 5 mls/min BID VIRGEN Administration Ampicillin Sodium/Sulbactam 100 mls @ 100 mls/hr 05/28/24 17:00 06/08/24 10:40 Sodium 3,000 mg/ Sodium IV 06/11/24 16:59 100 mls/hr Chloride Q6H VIRGEN Administration Lidocaine 1 patch 05/27/24 17:30 06/08/24 10:34 Lidocaine 5% 1 Patch TD 06/26/24 17:29 1 patch QAM VIRGEN Administration Losartan Potassium 25 mg 06/04/24 09:00 06/08/24 09:22 Losartan Potassium 25 Mg Tab PO 07/04/24 08:59 25 mg QAM VIRGEN Administration Methylprednisolone 4 mg 06/08/24 07:00 06/08/24 06:07 Methylprednisolone 4 Mg Tab PO 06/08/24 18:01 4 mg 0700,1300,1800 VIRGEN Administration Metoprolol Succinate 100 mg 06/03/24 09:00 06/08/24 09:23 Metoprolol Succ 50mg Ext Rel Tab PO 07/03/24 08:59 100 mg QAM VIRGEN Administration Metoprolol Succinate 50 mg 06/02/24 21:00 06/07/24 20:57 Metoprolol Succ 50mg Ext Rel Tab PO 07/02/24 20:59 50 mg QPM VIRGEN Administration Miscellaneous 1 each 05/27/24 21:00 06/07/24 20:57 Remove Lidoderm Patch N/A 06/26/24 20:59 1 each DAILY@2100 VIRGEN Administration Multivitamins 1 tab 05/27/24 09:00 06/08/24 09:23 Multivitamin Tab PO 06/26/24 08:59 1 tab DAILY VIRGEN Administration Oxycodone HCl 10 mg 06/06/24 07:18 06/07/24 20:59 Oxycodone Hcl Ir 5 Mg Tab (Immediate Release) PO 06/20/24 07:17 10 mg Q4H PRN Administration Moderate Pain (Scale 4, 5, 6) Vitamin D 125 mcg 05/27/24 09:00 06/08/24 09:23 Cholecalciferol 125 Mcg (5,000 Units) Tab PO 06/26/24 08:59 125 mcg DAILY VIRGEN Administration (1) Fall Encounter type: initial encounter Qualified Code(s): W19.XXXA - Unspecified fall, initial encounter
[2024-06-08] MEDS: WARFARIN SOD 7.5 MG TAB PO SCH (16:09)
[2024-06-09] MEDS: methylPREDNISolone 4 MG TAB PO SCH (06:08)
[2024-06-09 06:23] LABS: INR 2.4 (0.9-1.1); Prothrombin Time 23.9 Seconds (9.0-12.0)
[2024-06-09] MEDS ORDERED: PROMETHAZINE 6.25 MG/50.25 ML BAG IV PRN (07:07)
[2024-06-09 07:15] VITALS: BP 125/75; PULSE 56; RESP 16; TEMP 97.9; O2SAT 99
--- NOTE | 2024-06-09 11:46 | Discharge Summary ---
Discharge Summary Date of Service June 09, 2024 Principal Dx & Hospital Course #1 = Principal Diagnosis (1) Fall: (2) Bacteremia: (3) Complicated UTI (urinary tract infection): (4) Ambulatory dysfunction: (5) Anticoagulated on warfarin: (6) H/O mechanical aortic valve replacement: Plan Patient was admitted to the hospital. Placed on broad-spectrum antibiotics. He is seen by multiple specialists including cardiology, maxillofacial surgery, infectious disease. Patient underwent transesophageal echocardiogram for his bacteremia. No evidence of endocarditis. Patient's overall symptoms steadily improved. His strength improved. He is recommended IV antibiotics. This was coordinated for him to complete the course of IV antibiotics at home. Unfortunately patient was unable to pay the co-pay. On the day of discharge patient was frustrated by the fact that he been here for quite some time. Is also his significant other was in a significant accident and he needed to check on him and make sure that he was okay. I had extensive conversation with the patient the bedside explaining risks and benefits of leaving AGAINST MEDICAL ADVICE. The patient was well-informed and chose to leave AGAINST MEDICAL ADVICE. He is 2 days short of completing the full antibiotics. PICC line was removed. He was discharged and left the hospital AGAINST MEDICAL ADVICE before he could even be given his full discharge instructions and adjustments of his medications information. Should follow-up with his PCP as soon as possible. Should continue to get his INR checked per his usual protocol. He did state that he follows closely with [facility] in [place] for his INR. 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 History obtained from patient and outpatient chart review. P atient states 1.5 weeks ago he missed a step and fell backwards onto buttocks and back approximately 5 feet. Initially was walking and ambulating ok. Noted bruising to right buttock which is slowing resolving. C/O having right lower back pain. Past 3 days with increased pain with reported spasms across his back. He states pain radiates up back and down right hip and leg and describes as stabbing type pain. He has been taking Tylenol without much relief. He states past 2 days has taken 600mg ibuprofen twice daily. Feels bilateral leg weakness and generalized weakness the past 3 days. Past 3 days having chills, sweats. Hasn't measured temperature. Decreased appetite and oral intake past 3 days. States past several days feeling like not urinating much and difficult to urinate. Today he states he is urinating but is dark in coloration. Denies saddle paresthesias. Denies N/V/D/C, LEIVA, dizziness, syncope, vision changes, neck pain, CP, SOB, palpitations, cough, sore throat, rhinorrhea, abdominal pain, increased extremity edema, rashes, hematuria, dysuria, melena, hematochezia. Admission Exam Per Admitting Provider See H&P Discharge Exam Constitutional: Alert HEENT: Mucous membranes moist. Lungs: Clear to auscultation, decreased, no wheezes rales or rhonchi CV: S1-S2, regular Abdomen: Soft, nontender, nondistended Extremities: No significant edema Neuro: No focal deficits Psych: Cooperative, normal mood Updated Medication List Medication Instructions Recorded Confirmed Type clopidogrel 75 mg tablet 75 mg PO QAM 11/12/18 05/26/24 History duloxetine 60 mg capsule,delayed 60 mg PO DAILY 11/12/18 05/26/24 History release warfarin 5 mg tablet See Rx Instructions .Route .COMPLEX 12/06/19 05/26/24 History duloxetine 30 mg capsule,delayed 30 mg PO DAILY 03/11/21 05/26/24 History release acetaminophen 500 mg tablet 1,000 mg PO Q6H PRN Pain 04/08/21 05/26/24 History (Tylenol Extra Strength) multivitamin 1 tab PO DAILY 04/20/21 05/26/24 History atorvastatin 10 mg tablet 10 mg PO HS 05/26/24 05/26/24 History cholecalciferol (vitamin D3) 125 125 mcg PO DAILY 05/26/24 05/26/24 History mcg (5,000 unit) tablet (Vitamin D3) losartan 50 mg tablet 50 mg PO BID 05/26/24 05/26/24 History metoprolol tartrate 25 mg tablet 75 mg PO BID 05/26/24 05/26/24 History losartan 25 mg tablet 25 mg PO QAM #30 tabs 06/09/24 Rx metoprolol succinate 50 mg 50 mg PO QPM #30 tabs 06/09/24 Rx tablet,extended release 24 hr metoprolol succinate 50 mg 100 mg (2 x 50 mg) PO QAM #60 tabs 06/09/24 Rx tablet,extended release 24 hr Hospital Stay Data Consultations 05/26/24 11:24 ED Decision to Admit Stat 05/26/24 14:49 Consult Orthopedic Spine Surgery Routine 05/27/24 07:42 Consult Pain Management Routine 05/27/24 17:26 Consult Infectious Diseases Routine 05/27/24 17:32 Consult Cardiology Routine 05/30/24 17:31 Consult Oromaxillofacial Surgery Routine Procedures Performed Operation Date: 06/04/24 13:00 Actual Procedures p Teeth Extraction: 3, 5, 13, 16, 17, 20, 32(Not Applicable) - Bryan Eubanks DMD s Right Lower Facial Incision and Drainage(Not Applicable) - Bryan Eubanks DMD Diagnostic Imagining Performed 05/26/24 08:45 CT abd pelvis IV con only Stat CT cervical spine wo con Stat CT chest diagnostic w con Stat CT head/brain wo con Stat 05/26/24 08:49 CT lumbar spine w con Stat 05/26/24 08:50 CT thoracic spine w con Stat 05/26/24 11:23 CT hip RT wo con Stat 05/26/24 11:57 MR lumbar spine wo/w con Urgent 05/30/24 18:16 CT face [CT facial bones wo con] Stat 06/03/24 18:36 CTA abd pelvis wo/w con [CT angio abd pelvis wo/w con] Urgent Pending Results Patient Have Any Pending Studies at Discharge: No Discharge Instructions Given to Patient (Per Discharging Provider) ADDITIONAL ACTIVITY RECOMMENDATIONS: * [place] teeth after every meal. It is very important to keep your mouth clean to prevent infection. * Starting tonight rinse with the Peridex as directed then 2 x a day * it is very important to keep well hydrated, this prevents fever and possible dry socket pain SPECIAL CARE INSTRUCTIONS: *It is not uncommon that between day 2-4 that your swelling will be at its worst this is very normal, do not be alarmed. * Keep ice on the side of your face for the next 24 to 36 hours. This will help keep the swelling down. * After 36 hours, apply heat (hot water bottle or heating pad) for the next two days, as often as possible. * Tomorrow start rinsing your mouth with 1/2 teaspoon salt in 8 ounces warm water. This rinse should be used every 4-6 hours. * You may experience slight nausea. To prevent this, never take your medication on an empty stomach. If nauseated, take small sips of catherine maxine until you feel better; then you may start on applesauce and toast. * Some swelling is common. It should gradually decrease within 4-5 days. * A certain amount of bleeding is to be expected. It is often possible to control mild oozing by placing folded gauze over the area and biting down for 30 minutes. If you are unable to control excessive bleeding, call Dr Eubanks at [phone] * You may experience some discomfort for a few days. If pain or swelling increases, Call Dr Eubanks * Return to the office for a follow up check up on: If needed * office address--[address] phone # [phone] Total Time Total Time Spent Total Time Spent (In Minutes): 31
[2024-06-10] MEDS ORDERED: methylPREDNISolone 4 MG TAB PO SCH (07:00)
[2024-06-11] MEDS ORDERED: methylPREDNISolone 4 MG TAB PO SCH (07:00)
[2024-06-12] MEDS ORDERED: methylPREDNISolone 4 MG TAB PO SCH (07:00)
--- NOTE | 2024-06-14 21:57 | Operative Report ---
[facility] Post Operative Report Pre & Post Diagnosis Operation Date: 06/04/24 13:00 Pre-Op Diagnosis: The following teeth are grossly fractured, decayed and associated with periapically infection and radiolucent apical lesions: 3,5,13,16,17,20,32 Post-Op Diagnosis: The following teeth are grossly fractured, decayed and associated with periapically infection and radiolucent apical lesions: 3,5,13,16,17,20,32 I identified the patient and participated in the time-out.: Yes Procedure Operation Date: 06/04/24 13:00 Actual Procedures p Teeth Extraction: 3, 5, 13, 16, 17, 20, 32(Not Applicable) - Bryan Eubanks DMD s Right Lower Facial Incision and Drainage(Not Applicable) - Bryan Eubanks DMD Surgeon Bryan Eubanks DMD Mandolin Repairer none Estimated Blood Loss 3 Findings Consistent with Post-Op Diagnosis Specimens none Drains none Anesthesia Type General Complications none Disposition Accompanied Patient To Recovery: Yes Indications grossly infected teeth and sepsis ID suggested teeth be removed as this is a contributing factor Description of Procedure Teeth Extraction: 3, 5, 13, 16, 17, 20, 32 Right and Left Lower Facial Incision and Drainage Operation Date: 06/04/24 13:00 ICD 10 K12.2 and K04.6 CPT 71389c 2 (bilateral) lower right/left facial abscess D7210 x 3 for teeth abscessed and carious teeth # 17,20 and 32 D7140 x 4 for simple extraction of carious teeth # 3,5,13,16, As a result of poor dental care there are many carious and fractured teeth resulting in the facial abscess This has resulted in the chronic infections, decayed and abscessed teeth Deep will need comprehensive dental care Once cleared for surgery general anesthesia was achieved, the eyes were protected by the anesthesia dept criteria. A time out was take for patient ID, antibiotics, equipment and position verification once all agreed the procedure began. Local anesthesia using Marcaine with a vasoconstrictor ( 1.8 ml per site) given into right/left inferior alveolar nerve and upper left/right side. A throat pack was placed after the oral cavity was irrigated with saline. Once a surgical level of anesthesia was obtained and the local anesthesia was given time for the blocks the surgery was started. I turned my attention to the infection which was located in the subperiosteal area lower right and also lower left mucobuccal fold. Incision and Drainage of posterior right and left subperiosteal area CPT 14059 x 2 Using a 15 blade an incision was made around the gingival tissue from the retromolar area to tooth # 28 on the right and 21 on the left. Once the incision was made a lot of pus extruded from the site. Because of the chronic nature of the infection there was a lot of scaring that contributed to the firm expansion of the lateral vestibular subperiosteal space. This tissue was removed to debulk the area. A curved hemostat was carefully placed into the infected space along the lateral side of the lower jaw to insure adequate drainage. Some further drainage was now allowed to escape. I palpated the jaw and no further drainage was expressed. The area was irrigated with at least 100 ml of NS solution. Given that Deep was on anticoagulant medication for his significant cardiac issu es Surgicel was used with sutures to lessen the chance of bleeding. ID recommended the extraction of the infected teeth and periapical lesions as this was a primary source of the on going sepsis. I now turned my attention to remove teeth 17,20,32 Lower # 17,20 and 32 D7210 x 3 Since the full thick Muco-periosteal flap was made and was reflected the bone adjacent to the decayed and fractured 3 teeth was visualized. The rongeur and drill with a round bur was used to remove bone, the 17,20,32 teeth were removed with a 301 elevator and cow horn dental forceps, the mental nerve was intact, there was a large amount of granulation tissue on the apex and some more pus that was expressed. I curetted the sites and placed Surgicel. At this time there was no bleeding. The bone was trimmed, smoothed and the large flaps were closed with a 2-0 chromic sutures. Upper 3,5,13,16 D7140 x 4 for simple extraction of carious teeth # 3,5,13,16 The 4 upper decayed,fractured and infected teeth were visualized. The rongeur was used to remove bone, now with a 301 elevator and dental forceps the 4 teeth were removed. At this time there was no bleeding but once again Surgicel was placed. \ The bone was trimmed, smoothed and the sockets were closed with a 2-0 chromic sutures to keep the Surgicel in place Completion of the case Once the I&D and extractions were completed, I inspected the sites to insure all bleeding was controlled. I removed the throat pack and suctioned the throat. Bilateral gauze pressure dressings were placed. All instrument and sponge count was correct. The patient was allowed to awake from the anesthesia. Once full awake the anesthesia tube was removed and the patient was taken to the recovery room with all vital sign stable. Upon full recovery he will be brought back his room. The patient tolerated the surgery very well. I will follow the patient in my office upon D/C Rx and instructions will be given upon discharge. I attest to the content of the Intraoperative Record and any orders documented therein. Any exceptions are noted below.
== END 2024-06-09 11:59 | disposition left against medical advice (07) | DRG 871 ==
LOC: ED 08:02 → SUATTDRO 12:12 → EDINP 12:12 → 2S 14:15 → 3N 06-08 13:24
DX: E66.9 Obesity, unspecified; Z79.02 Long term (current) use of antithrombotics/antiplatelets; B96.1 Klebsiella pneumoniae [K. pneumoniae] as the cause of diseases classified elsewhere; M51.36 Other intervertebral disc degeneration, lumbar region; I44.0 Atrioventricular block, first degree; F41.9 Anxiety disorder, unspecified; I44.7 Left bundle-branch block, unspecified; R29.6 Repeated falls; K03.81 Cracked tooth; Z68.35 Body mass index [BMI] 35.0-35.9, adult; E78.5 Hyperlipidemia, unspecified; D50.9 Iron deficiency anemia, unspecified; Z79.01 Long term (current) use of anticoagulants; Z95.2 Presence of prosthetic heart valve; I71.019 Dissection of thoracic aorta, unspecified; M54.31 Sciatica, right side; Z98.84 Bariatric surgery status; K02.9 Dental caries, unspecified; M51.37 Other intervertebral disc degeneration, lumbosacral region; Z79.899 Other long term (current) drug therapy; B95.4 Other streptococcus as the cause of diseases classified elsewhere; I50.32 Chronic diastolic (congestive) heart failure; R00.0 Tachycardia, unspecified; R78.81 Bacteremia; F32.A Depression, unspecified; K04.6 Periapical abscess with sinus; I11.0 Hypertensive heart disease with heart failure; E83.51 Hypocalcemia; M47.816 Spondylosis without myelopathy or radiculopathy, lumbar region; Z87.891 Personal history of nicotine dependence; R19.7 Diarrhea, unspecified; N39.0 Urinary tract infection, site not specified; W10.9XXA Fall (on) (from) unspecified stairs and steps, initial encounter; K12.2 Cellulitis and abscess of mouth